=== PATIENT | male | born 1955 | race Caucasian/White ===

== ENCOUNTER → 2020-01-07 10:16 | Outpatient (BNVA) | payer OTHER, SELFPAY | PROVIDERS: PCP Internal Medicine; Referring Provider Internal Medicine; Visit Provider Internal Medicine | DX: G47.33 Obstructive sleep apnea (adult) (pediatric) (principal) | CPT/HCPCS: 99213 ==

== ENCOUNTER 2020-01-10 15:03 | Outpatient (REF) | payer OTHER, SELFPAY ==
[2020-01-10 17:35] LABS: Prostate Specific Antigen Scr 1.25 ng/mL (<0.05-4.0)
== END 2020-01-10 15:04 | disposition home or self-care (01) ==
LOC: HO.HMGCLDS 15:03
PROVIDERS: PCP Internal Medicine; Visit Provider Internal Medicine
DX: N40.1 Benign prostatic hyperplasia with lower urinary tract symptoms (principal); R35.1 Nocturia
CPT/HCPCS: 84153

== ENCOUNTER → 2020-01-23 08:42 | Outpatient (BNVA) | payer OTHER, SELFPAY | PROVIDERS: PCP Internal Medicine; Referring Provider Internal Medicine; Visit Provider Dietitian, Registered | DX: Z76.89 Persons encountering health services in other specified circumstances (principal) ==

== ENCOUNTER 2020-02-14 11:58 | Outpatient (REF) | payer OTHER, SELFPAY | END 2020-02-14 11:59 | disposition home or self-care (01) | LOC: HO.HAP 11:58 | PROVIDERS: PCP Internal Medicine; Visit Provider Internal Medicine | DX: Z46.1 Encounter for fitting and adjustment of hearing aid (principal) | CPT/HCPCS: V5266 ==

== ENCOUNTER 2020-02-27 12:26 | Outpatient (REF) | payer OTHER, SELFPAY ==
[2020-02-27 14:09] LABS: Estimated Average Glucose 140 mg/dL; Hemoglobin A1c % 6.5 %
== END 2020-02-27 12:27 | disposition home or self-care (01) ==
LOC: HO.10HDL 12:26
PROVIDERS: Visit Provider Nurse Practitioner Gerontology
DX: E11.42 Type 2 diabetes mellitus with diabetic polyneuropathy (principal); N40.1 Benign prostatic hyperplasia with lower urinary tract symptoms; R35.1 Nocturia; R33.9 Retention of urine, unspecified; R39.12 Poor urinary stream; N52.01 Erectile dysfunction due to arterial insufficiency
CPT/HCPCS: 81002; 83036; 99202

== ENCOUNTER 2020-04-21 10:38 | Outpatient (REF) | payer OTHER, SELFPAY ==
[2020-04-21 14:41] LABS: Estimated Average Glucose 134 mg/dL; Hemoglobin A1c % 6.3 %
[2020-04-21 14:45] LABS: Alanine Aminotransferase 26 U/L (0-40); Albumin Level 4.7 g/dL (3.5-5.0); Alkaline Phosphatase 127 U/L (39-117); Anion Gap 16 (12-20); Aspartate Amino Transferase 25 U/L (5-37); Bilirubin Total 0.8 mg/dL (0.0-1.0); Blood Urea Nitrogen 18 mg/dL (9-16); Calcium 9.8 mg/dL (8.4-10.2); Carbon Dioxide 25 mmol/L (22-29); Chloride 107 mmol/L (96-108); Cholesterol 127 mg/dL; Estimated Glomerular Filt Rate > 60; Glucose Fasting 134 mg/dL (60-99); HDL Cholesterol 32 mg/dL; LDL Cholesterol Calculated 73 mg/dl; Sodium 143 mmol/L (135-145); Total Protein 6.6 g/dL (6.5-8.0); Triglycerides 113 mg/dL
[2020-04-21 15:21] LABS: Microalbum/Creatinine Ratio Ur 5.9 ug/mg cr
== END 2020-04-21 10:39 | disposition home or self-care (01) ==
LOC: HO.HMGCLDS 10:38
PROVIDERS: PCP Internal Medicine; Visit Provider Internal Medicine
DX: R33.9 Retention of urine, unspecified (principal); R39.12 Poor urinary stream; N40.1 Benign prostatic hyperplasia with lower urinary tract symptoms; E11.9 Type 2 diabetes mellitus without complications; Z12.5 Encounter for screening for malignant neoplasm of prostate
CPT/HCPCS: 36415; 80053; 80061; 82043; 83036

== ENCOUNTER → 2020-04-24 10:09 | Outpatient (BNVA) | payer OTHER, SELFPAY | PROVIDERS: PCP Internal Medicine; Visit Provider Dietitian, Registered ==

== ENCOUNTER 2020-04-28 08:50 | Outpatient (REF) | payer OTHER, SELFPAY ==
--- NOTE | 2020-04-28 | US_ITS ---
EXAMINATION: US PELVIS LIMITED (BLADDER) CLINICAL INFORMATION: Urinary retention with incomplete bladder emptying. COMPARISON: CT abdomen pelvis 06/27/2018. Ultrasound abdomen 06/15/2018 and 07/06/2017. TECHNIQUE: Real-time imaging of the bladder. FINDINGS: BLADDER: Well distended and normal. No bladder wall mass, nodule or echogenic bladder contents are seen. Bilateral ureteral jets are demonstrated. Prevoid bladder volume is 381 mL. Postvoid bladder volume is 30 mL. OTHER: Prostate dimensions are 3.6 x 2.9 x 3.0 cm (volume 16.4 mL). US/US bladder IMPRESSION: Unremarkable examination.
== END 2020-04-28 08:51 | disposition home or self-care (01) ==
LOC: HO.HMGCX 08:50
PROVIDERS: PCP Internal Medicine; Visit Provider Urology
DX: R33.9 Retention of urine, unspecified (principal)
CPT/HCPCS: 76857

== ENCOUNTER → 2020-04-29 12:46 | Outpatient (BNVA) | payer OTHER, SELFPAY | PROVIDERS: PCP Internal Medicine; Visit Provider Orthopaedic Surgery | DX: M77.11 Lateral epicondylitis, right elbow (principal) | CPT/HCPCS: 20551; 99202; J1020 ==

== ENCOUNTER → 2020-05-01 12:54 | Outpatient (BNVA) | payer OTHER, SELFPAY | PROVIDERS: Visit Provider Urology | DX: R33.9 Retention of urine, unspecified (principal); N52.01 Erectile dysfunction due to arterial insufficiency; R39.12 Poor urinary stream | CPT/HCPCS: 52000; 99212 ==

== ENCOUNTER → 2020-06-02 08:44 | Outpatient (BNV) | payer OTHER, SELFPAY | PROVIDERS: PCP Internal Medicine; Visit Provider Internal Medicine | DX: C83.07 Small cell B-cell lymphoma, spleen (principal); D80.1 Nonfamilial hypogammaglobulinemia; M86.8X6 Other osteomyelitis, lower leg | CPT/HCPCS: 99213; 99214; G2211 ==

== ENCOUNTER → 2020-06-22 09:46 | Outpatient (BNVA) | payer OTHER, SELFPAY | PROVIDERS: PCP Internal Medicine; Visit Provider Internal Medicine | DX: I48.19 Other persistent atrial fibrillation (principal); I48.3 Typical atrial flutter; I25.10 Atherosclerotic heart disease of native coronary artery without angina pectoris; I95.1 Orthostatic hypotension; E11.42 Type 2 diabetes mellitus with diabetic polyneuropathy; G47.33 Obstructive sleep apnea (adult) (pediatric) | CPT/HCPCS: 99212 ==

== ENCOUNTER 2020-06-30 08:29 | Outpatient (REF) | payer OTHER, SELFPAY | END 2020-06-30 08:30 | disposition home or self-care (01) | LOC: HO.MDS 08:29 | PROVIDERS: PCP Internal Medicine; Visit Provider Internal Medicine | DX: D80.1 Nonfamilial hypogammaglobulinemia (principal) | CPT/HCPCS: 96365; 96366; 96375; J1572; J2930; Q0163 ==

== ENCOUNTER → 2020-07-02 10:10 | Outpatient (BNVA) | payer OTHER, SELFPAY | PROVIDERS: PCP Internal Medicine; Visit Provider Internal Medicine | DX: G47.33 Obstructive sleep apnea (adult) (pediatric) (principal) | CPT/HCPCS: 99212; Q3014 ==

== ENCOUNTER 2020-07-06 06:09 | Day surgery (SDC) | payer OTHER, SELFPAY ==
[2020-06-30 15:47] VITALS: BMI 30.2
--- NOTE | 2020-07-02 15:25 | HO.ANESPROP2 ---
Documented by User: Yesenia Kulkarni 07/02/20 15:36 HPI - Anesthesia Eval Consult details Narrative: 65yo M for Green Light Laser Ablation Prostate pradaxa for afib Pulmo cleared - no chronic lung ds. EMIL with h/o of noncompliance with CPAP. Pt to start using regularly preop. 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 hx or current) PMFSH Active Problems Active Problems: All Active Problems (Updated 07/02/20 @ 11:03 by Duke Patel MD) Type 2 diabetes mellitus with diabetic polyneuropathy (Acute) Weak urinary stream (Acute) Urinary retention with incomplete bladder emptying (Acute) Erectile dysfunction due to arterial insufficiency (Acute) Lateral epicondylitis, right elbow (Acute) Splenic marginal zone b-cell lymphoma (Chronic) Orthostatic hypotension (Acute) Atherosclerotic cardiovascular disease (Acute) Typical atrial flutter (Acute) Persistent atrial fibrillation (Acute) Essential hypertension (Acute) Hyperlipidemia LDL goal <100 (Acute) Obesity due to excess calories (Acute) BMI 30.0-30.9,adult (Acute) Status post below-knee amputation of left lower extremity (Acute) DM (diabetes mellitus) (Acute) ETOH abuse (Acute) BPH associated with nocturia (Acute) EMIL (obstructive sleep apnea) (Acute) Past Medical History Medical History (Updated 07/02/20 @ 15:26 by Yesenia Kulkarni) Adjustment disorder Atherosclerotic cardiovascular disease BMI 30.0-30.9,adult BPH associated with nocturia CAD (coronary artery disease) Chronic osteomyelitis Depression Diabetic eye exam DM (diabetes mellitus) Essential hypertension ETOH abuse GERD (gastroesophageal reflux disease) Gout Hyperlipidemia LDL goal <100 Hypogammaglobulinemia Long-term current use of intravenous immunoglobulin (IVIG) Lymphoma Obesity due to excess calories Orthostatic hypotension EMIL (obstructive sleep apnea) PAF (paroxysmal atrial fibrillation) Persistent atrial fibrillation Splenic marginal zone b-cell lymphoma Typical atrial flutter Family History Family History Father Diabetes Mother Liver cancer Maternal Grandfather CVD (cardiovascular disease) Brother Myocardial infarction Surgical History Surgical History History of bunionectomy History of cardiac cath History of colonoscopy History of esophagogastroduodenoscopy (EGD) Osteomyelitis Osteomyelitis Status post below-knee amputation of left lower extremity Social History Social History Alcohol intake: never Smoking Status: Never smoker Use of substances other than those prescribed or required for medical reasons: No Advance Directives: No Advance Directives Information Provided: Yes Current occupational status: employed 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 Meds Allergies Allergy/AdvReac Type Severity Reaction Status Date / Time vancomycin [VANCOMYCIN] Allergy Severe ANGIOEDEMA Verified 07/02/20 10:25 Sulfa (Sulfonamide Allergy Intermediate Rash Verified 07/02/20 10:25 Antibiotics) sulfamethoxazole Allergy Rash Verified 07/03/20 11:39 [From Bactrim] trimethoprim [From Bactrim] Allergy Rash Verified 07/03/20 11:39 Home Medications Medication Instructions Recorded Confirmed Last Taken Type allopurinol 100 mg tablet 200 mg PO DAILY 12/21/19 06/22/20 Unknown History blood sugar diagnostic #10 ea 12/21/19 06/22/20 Unknown History diltiazem HCl 180 mg 180 mg PO BID 12/21/19 06/22/20 07/06/20 History capsule,extended release 24 hr, controlled dulaglutide 0.75 mg/0.5 mL 0.75 mg SUBCUT QWEEK 12/21/19 06/22/20 Unknown History subcutaneous pen injector duloxetine 60 mg capsule,delayed 60 mg PO DAILY 12/21/19 06/22/20 07/06/20 History release lancets 28 gauge #100 ea 12/21/19 06/22/20 Unknown History metoprolol tartrate 50 mg tablet 50 mg PO BID 12/21/19 06/22/20 07/06/20 History bupropion HCl 300 mg 24 hr tablet, 300 mg PO DAILY tab 02/27/20 06/22/20 Unknown History extended release dabigatran etexilate 150 mg capsule 150 mg PO BID 02/27/20 06/22/20 07/01/20 History multivitamin 1 tab PO DAILY 02/27/20 06/22/20 Unknown History trazodone 100 mg tablet 100 mg PO BEDTIME PRN tab 07/02/20 Unknown History Exam Exam Date and Time: July 02, 2020 1525 Height,Weight and Vital Signs: Height 6 ft 2 in Weight 106.594 kg Pertinent Lab Results Pertinent Lab Results: Laboratory Tests 06/02/20 06/02/20 09:10 09:10 WBC 10.1 Hgb 14.9 Hct 43.6 Plt Count 313 Sodium 143 Potassium 5.0 Chloride 108 Carbon Dioxide 26 BUN 19 H Creatinine 1.03 Narrative Narrative: Per cardiol: Myocardial perfusion imaging had shown inferior and apical ischemia. However, cardiac catheterization without any significant coronary disease. No obstructive lesions. Echo with contrast 2019 Nml LV systolic function with normal filling pressures. EF 55-60% ECHO 2018 Mildly depressed LV sys function with LVEF 45-50% Severe biatrial enlargement Mild Mitral and Tricuspid regurg Normal RV sys pressure No pericardial effusion Assessment and Plan Assessment Anesthesia Assessment: Chart Reviewed Documented by User: Suzette Silverman 07/06/20 07:19 [facility] Past Medical History Medical History (Updated 07/02/20 @ 15:26 by Yesenia Kulkarni) Adjustment disorder Atherosclerotic cardiovascular disease BMI 30.0-30.9,adult BPH associated with nocturia CAD (coronary artery disease) Chronic osteomyelitis Depression Diabetic eye exam DM (diabetes mellitus) Essential hypertension ETOH abuse GERD (gastroesophageal reflux disease) Gout Hyperlipidemia LDL goal <100 Hypogammaglobulinemia Long-term current use of intravenous immunoglobulin (IVIG) Lymphoma Obesity due to excess calories Orthostatic hypotension EMIL (obstructive sleep apnea) PAF (paroxysmal atrial fibrillation) Persistent atrial fibrillation Splenic marginal zone b-cell lymphoma Typical atrial flutter Family History Family History Father Diabetes Mother Liver cancer Maternal Grandfather CVD (cardiovascular disease) Brother Myocardial infarction Surgical History Surgical History History of bunionectomy History of cardiac cath History of colonoscopy History of esophagogastroduodenoscopy (EGD) Osteomyelitis Osteomyelitis Status post below-knee amputation of left lower extremity Social History Social History Alcohol intake: never Smoking Status: Never smoker Use of substances other than those prescribed or required for medical reasons: No Advance Directives: No Advance Directives Information Provided: Yes Current occupational status: employed 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 Meds Allergies Allergy/AdvReac Type Severity Reaction Status Date / Time vancomycin [VANCOMYCIN] Allergy Severe ANGIOEDEMA Verified 07/02/20 10:25 Sulfa (Sulfonamide Allergy Intermediate Rash Verified 07/02/20 10:25 Antibiotics) sulfamethoxazole Allergy Rash Verified 07/03/20 11:39 [From Bactrim] trimethoprim [From Bactrim] Allergy Rash Verified 07/03/20 11:39 Home Medications Medication Instructions Recorded Confirmed Last Taken Type allopurinol 100 mg tablet 200 mg PO DAILY 12/21/19 06/22/20 Unknown History blood sugar diagnostic #10 ea 12/21/19 06/22/20 Unknown History diltiazem HCl 180 mg 180 mg PO BID 12/21/19 06/22/20 07/06/20 History capsule,extended release 24 hr, controlled dulaglutide 0.75 mg/0.5 mL 0.75 mg SUBCUT QWEEK 12/21/19 06/22/20 Unknown History subcutaneous pen injector duloxetine 60 mg capsule,delayed 60 mg PO DAILY 12/21/19 06/22/20 07/06/20 History release lancets 28 gauge #100 ea 12/21/19 06/22/20 Unknown History metoprolol tartrate 50 mg tablet 50 mg PO BID 12/21/19 06/22/20 07/06/20 History bupropion HCl 300 mg 24 hr tablet, 300 mg PO DAILY tab 02/27/20 06/22/20 Unknown History extended release dabigatran etexilate 150 mg capsule 150 mg PO BID 02/27/20 06/22/20 07/01/20 History multivitamin 1 tab PO DAILY 02/27/20 06/22/20 Unknown History trazodone 100 mg tablet 100 mg PO BEDTIME PRN tab 07/02/20 Unknown History Exam Airway Mallampati Class: II TM Dist: >3cm Neck ROM: Full Heart: irr Lungs: CtA Bl Assessment and Plan Assessment Anesthesia Assessment: Anesthesia Plan Discussed and Chart Reviewed Final Anesthetic Review NPO: Yes (Sip water with meds) ASA Class: III Final Preanesthetic Review: No Changes in Pt Med Stat and Consent Obtained/Reviewed Patient Risk: Intermediate Procedure Risk: Intermediate Anesthetic Plan Anesthetic Plan: GA Disposition: Standard PACU
[2020-07-06] VITALS (7 sets, daily range): BP systolic 119–134; BP diastolic 64–88; PULSE 45–57; RESP 16–18; TEMP 36.1–36.6; O2SAT 92–98
--- NOTE | 2020-07-06 | ECG_ITS ---
Test Reason : CAD, aflutter, DM, EMIL Blood Pressure : / mmHG Vent. Rate : 048 BPM Atrial Rate : 047 BPM P-R Int : 000 ms QRS Dur : 088 ms QT Int : 436 ms P-R-T Axes : 000 -32 -06 degrees QTc Int : 389 ms Atrial fibrillation with slow ventricular response Left axis deviation Septal infarct , age undetermined Abnormal ECG When compared to the previous EKG of 2019, rate is slower Referred By: Yesenia Kulkarni Electronically Signed By:SLOANE POSADA
[2020-07-06] MEDS: levoFLOXacin 500 MG TABLET PO (06:46)
[2020-07-06 07:00] LABS: Glucose, Whole Blood 143 mg/dL (60-115)
[2020-07-06] MEDS: Lactated Ringers 1,000 ML 50 ML IV (07:30)
--- NOTE | 2020-07-06 07:40 | P.HPSUR_ITS ---
Pre-Procedural Eval Section B Chief Complaint: retention of urine Details of Present Illness: BPH Allergies: Allergies Allergy/AdvReac Type Severity Reaction Status Date / Time vancomycin [VANCOMYCIN] Allergy Severe ANGIOEDEMA Verified 07/02/20 10:25 Sulfa (Sulfonamide Allergy Intermediate Rash Verified 07/02/20 10:25 Antibiotics) sulfamethoxazole Allergy Rash Verified 07/03/20 11:39 [From Bactrim] trimethoprim [From Bactrim] Allergy Rash Verified 07/03/20 11:39 Review of Systems Sugical H&P ROS: Negative: Constitution, Cardiovascular, Respiratory, Neurol ogical, Psychiatric, Hem-Onc, Allergic/Immunologic, Gastrointestinal, Genitourinary, Musculoskeletal, Integumentary, Endocrine and Eyes/Ears/Nose/Throat Exam Surgical H&P Exam: Normal: HEENT, Normal: Heart, Normal: Lungs, Normal: Extremities, Normal: Abdomen, Normal: Skin and Normal: Neurological Plan Diagnosis/Plan: Unchanged (Laser enucleation of prostate) I have reviewed the history and physical and performed a pertinent physical examination on my patient. No changes have occurred unless specified.
--- NOTE | 2020-07-06 08:34 | PM.OP ---
Brief Operative Note Date of Service: 07/06/20 Pre-op diagnosis: BPH Post-op diagnosis: same Procedure: Laser enucleation of the prostate Surgeon: Cordell Montero MD Anesthesia: GLMA Estimated blood loss (mL): 0 Pathology: none sent Condition: stable Disposition: same day
--- NOTE | 2020-07-06 08:35 | P.OP_ITS ---
Operative Note Operative Note Date of Service: 07/06/20 Narrative: PreOperative Diagnosis: Bladder outlet obstruction Post Operative Diagnosis: Bladder outlet obstruction Procedure: GreenLight laser enucleation of the prostate Surgeon: Dr Cordell Montero Anesthesia: General Indications for procedure: History of bladder outlet obstruction. Treated with alpha-lashell and other medications. Still with symptoms. On cystoscopy in office has tight bladder neck. Recommendation for prostate procedure with laser enucleation of prostate. It has been discussed. Focus was placed on development of retrograde examination which is a normal part of this procedure. Procedure: After informed consent was verified the patient was brought to the operating room and placed in a supine position. Anesthesia was administered per protocol. Patient was placed in modified dorsal lithotomy position and prepped and draped in a sterile fashion. Safety pause time-out was confirmed. Antibiotics have been given. Twenty-four Dominican laser cystoscope was inserted per urethra. No abnormalities found the anterior posterior urethra. The bladder was filled on both ureteric orifices were seen in normal position away from our area of interest. Using a GreenLight laser settings of 80 w incisions were made at the 5 and 7 o'clock position. They were taken down and then laterally on each side. They were brought from the bladder neck down to the level of the veru. These defined the lateral aspects of the median lobe area. The median lobe was ablated and en ucleated tissue removed. Once the median lobe area had been cleaned attention was directed to the lateral lobes. We started with the patient's left lateral lobe. Firstly the 05:00 o'clock groove was further developed. This was moved in the lateral position to undermine the tissue on the lateral side. Focus was then placed on the laser at the 1 o'clock position in developing a secondary groove down to the level of bladder fibers. The intervening tissue between these 2 grooves was removed with a combination of enucleation ablation working from the apex toward the bladder neck. A similar procedure was repeated on the patient's right-hand side. When this was completed debris and pieces of prostate removed from the bladder. Both ureteric orifices were reviewed again in shown to be patent in away from any areas of energy damage. The apical area was reviewed in any stray ooze was controlled. A 22 Dominican 30 cc balloon Santos catheter was placed over stylet into the bladder. Clear efflux was obtained. 30 cc was placed in the balloon and gentle traction was placed. A snap was used to hold tension once the patient will be moved and transported. Once transportation its finish this novel be removed. A belladonna and opiate suppository was placed for postprocedure pain management. He tolerated procedure well was extubated in the operating and transferred in a stable condition to the recovery area. Total could joules 88,000 Pathology: Prostate tissue Drains: Santos catheter
== END 2020-07-06 10:26 ==
LOC: HO.SSS 06:10
PROVIDERS: PCP Internal Medicine; Visit Provider Urology
PROC: 0V507ZZ Destruction of Prostate, Via Natural or Artificial Opening (ICD-10-PCS; CPT 52648; principal; 2020-07-06 07:30)
DX: N40.1 Benign prostatic hyperplasia with lower urinary tract symptoms (principal); N32.0 Bladder-neck obstruction; R35.1 Nocturia; I10 Essential (primary) hypertension; E11.9 Type 2 diabetes mellitus without complications; I48.91 Unspecified atrial fibrillation; G47.33 Obstructive sleep apnea (adult) (pediatric); Z79.84 Long term (current) use of oral hypoglycemic drugs; Z79.899 Other long term (current) drug therapy; Z99.89 Dependence on other enabling machines and devices; Z91.19 Patient's noncompliance with other medical treatment and regimen; Z90.81 Acquired absence of spleen; Z89.512 Acquired absence of left leg below knee; Z88.2 Allergy status to sulfonamides; Z88.1 Allergy status to other antibiotic agents
CPT/HCPCS: 52648; 82947; 93005; J2250; J2370; J2405; J3010

== ENCOUNTER → 2020-07-09 08:41 | Outpatient (BNVA) | payer OTHER, SELFPAY | PROVIDERS: PCP Internal Medicine; Visit Provider Urology | DX: R33.9 Retention of urine, unspecified (principal) | CPT/HCPCS: 99212 ==

== ENCOUNTER 2020-07-30 08:12 | Outpatient (REF) | payer OTHER, SELFPAY ==
[2020-07-30 11:42] LABS: Hematocrit 42.3 % (42-52); Hemoglobin 14.2 g/dl (14.0-18.0); Mean Corpuscular HGB Conc 33.6 g/dl (31.0-36.0); Mean Corpuscular Hemoglobin 30.9 pg (27.0-33.0); Mean Platelet Volume 10.3 fL (9.4-12.4); NRBC Pct Auto 0.2 /100WBC (0.0-0.2); Platelet Count 350 X10*3/uL (160-400); Red Cell Distribution Width 14.4 % (11.0-16.0); White Blood Count 12.4 X10*3/uL (4.8-10.8)
[2020-07-30 11:50] LABS: Estimated Average Glucose 148 mg/dL; Hemoglobin A1c % 6.8 %
[2020-07-30 11:53] LABS: Alanine Aminotransferase 23 U/L (0-40); Albumin Level 4.2 g/dL (3.5-5.0); Alkaline Phosphatase 173 U/L (39-117); Anion Gap 15 (12-20); Aspartate Amino Transferase 21 U/L (5-37); Bilirubin Total 0.5 mg/dL (0.0-1.0); Blood Urea Nitrogen 25 mg/dL (9-16); Calcium 9.3 mg/dL (8.4-10.2); Carbon Dioxide 26 mmol/L (22-29); Chloride 103 mmol/L (96-108); Cholesterol 142 mg/dL; Estimated Glomerular Filt Rate > 60; Glucose Fasting 167 mg/dL (60-99); HDL Cholesterol 32 mg/dL; LDL Cholesterol Calculated 62 mg/dl; Potassium 4.5 mmol/L (3.3-5.1); Sodium 139 mmol/L (135-145); Total Protein 6.3 g/dL (6.5-8.0); Triglycerides 244 mg/dL
[2020-07-30 12:29] LABS: Creatinine Urine 120.95 mg/dL; Microalbum/Creatinine Ratio Ur 319.1 ug/mg cr
== END 2020-07-30 08:13 | disposition home or self-care (01) ==
LOC: HO.HMGCLDS 08:12
PROVIDERS: PCP Internal Medicine; Visit Provider Internal Medicine
DX: E11.42 Type 2 diabetes mellitus with diabetic polyneuropathy (principal); E78.5 Hyperlipidemia, unspecified; I10 Essential (primary) hypertension; R35.1 Nocturia; N40.1 Benign prostatic hyperplasia with lower urinary tract symptoms
CPT/HCPCS: 36415; 80053; 80061; 82043; 83036; 85027

== ENCOUNTER → 2020-08-20 08:30 | Outpatient (BNVA) | payer OTHER, SELFPAY | PROVIDERS: PCP Internal Medicine; Visit Provider Urology | DX: N40.1 Benign prostatic hyperplasia with lower urinary tract symptoms (principal); R39.12 Poor urinary stream; R33.9 Retention of urine, unspecified; R35.1 Nocturia | CPT/HCPCS: 51798; 99212 ==

== ENCOUNTER 2020-10-06 08:13 | Outpatient (REF) | payer OTHER, SELFPAY | END 2020-10-06 08:14 | disposition home or self-care (01) | LOC: HO.MDS 08:13 | PROVIDERS: PCP Internal Medicine; Visit Provider Internal Medicine | DX: D80.1 Nonfamilial hypogammaglobulinemia (principal) | CPT/HCPCS: 96365; 96366; 96375; J1572; J2930; Q0163 ==

== ENCOUNTER → 2020-10-07 13:25 | Outpatient (BNVA) | payer OTHER, SELFPAY | PROVIDERS: Visit Provider Nurse Practitioner Gerontology ==

== ENCOUNTER → 2020-10-13 08:33 | Outpatient (BNVA) | payer OTHER, SELFPAY | PROVIDERS: PCP Internal Medicine; Visit Provider Nurse Practitioner Gerontology | DX: E11.42 Type 2 diabetes mellitus with diabetic polyneuropathy (principal); E78.5 Hyperlipidemia, unspecified; E66.09 Other obesity due to excess calories; I10 Essential (primary) hypertension; Z68.30 Body mass index [BMI] 30.0-30.9, adult | CPT/HCPCS: Q3014 ==

== ENCOUNTER → 2020-10-22 09:03 | Outpatient (BNVA) | payer OTHER, SELFPAY | PROVIDERS: PCP Internal Medicine; Visit Provider Dietitian, Registered | DX: E11.42 Type 2 diabetes mellitus with diabetic polyneuropathy (principal) | CPT/HCPCS: 97803 ==

== ENCOUNTER 2020-10-26 08:35 | Outpatient (REF) | payer OTHER, SELFPAY ==
[2020-10-26 12:04] LABS: Prostate Specific Antigen 1.58 ng/mL (<0.05-4.0)
[2020-10-28 20:10] LABS: TS Negative Control Passed; TS Panel A 0; TS Panel B 2; TS Positive Control Passed; TSpotTB Negative (SeeBelow)
== END 2020-10-26 08:36 | disposition home or self-care (01) ==
LOC: HO.HMGCLDS 08:35
PROVIDERS: Absent Provider Urology; PCP Internal Medicine; Visit Provider Nurse Practitioner Family
DX: Z02.1 Encounter for pre-employment examination (principal); Z12.5 Encounter for screening for malignant neoplasm of prostate; N13.8 Other obstructive and reflux uropathy; N40.1 Benign prostatic hyperplasia with lower urinary tract symptoms
CPT/HCPCS: 36415; 84153; 86481

== ENCOUNTER → 2020-11-19 09:11 | Outpatient (BNVA) | payer OTHER, SELFPAY | PROVIDERS: PCP Internal Medicine; Visit Provider Urology | CPT/HCPCS: Q3014 ==

== ENCOUNTER 2020-12-29 08:24 | Outpatient (REF) | payer OTHER, SELFPAY | END 2020-12-29 08:25 | disposition home or self-care (01) | LOC: HO.MDS 08:24 | PROVIDERS: PCP Internal Medicine; Visit Provider Internal Medicine | DX: D80.1 Nonfamilial hypogammaglobulinemia (principal) | CPT/HCPCS: 96365; 96366; 96375; J1569; J2930; Q0163 ==

== ENCOUNTER 2021-02-03 09:12 | Outpatient (REF) | payer OTHER, SELFPAY ==
[2021-02-03 11:31] LABS: Hematocrit 47.4 % (42.0-52.0); Hemoglobin 16.2 g/dl (14.0-18.0); Mean Corpuscular HGB Conc 34.2 g/dl (31.0-36.0); Mean Corpuscular Hemoglobin 31.5 pg (27.0-33.0); Mean Corpuscular Volume 92.2 fL (80.0-98.0); Mean Platelet Volume 10.7 fL (9.4-12.4); Platelet Count 353 X10*3/uL (160-400); Red Blood Count 5.14 X10*6/uL (4.60-5.80); Red Cell Distribution Width 13.3 % (11.0-16.0); White Blood Count 6.6 X10*3/uL (4.8-10.8)
[2021-02-03 11:49] LABS: Alanine Aminotransferase 29 U/L (0-40); Albumin Level 4.6 g/dL (3.5-5.0); Alkaline Phosphatase 130 U/L (39-117); Anion Gap 13 (12-20); Aspartate Amino Transferase 28 U/L (5-37); Bilirubin Total 0.9 mg/dL (0.0-1.0); Blood Urea Nitrogen 20 mg/dL (9-16); Calcium 9.7 mg/dL (8.4-10.2); Carbon Dioxide 28 mmol/L (22-29); Chloride 105 mmol/L (96-108); Cholesterol 116 mg/dL; Creatinine Urine 102.75 mg/dL; Estimated Glomerular Filt Rate > 60; Glucose Fasting 130 mg/dL (60-99); HDL Cholesterol 28 mg/dL; LDL Cholesterol Calculated 72 mg/dl; Potassium 4.7 mmol/L (3.3-5.1); Sodium 141 mmol/L (135-145); Total Protein 6.6 g/dL (6.5-8.0); Triglycerides 83 mg/dL
[2021-02-03 11:50] LABS: Estimated Average Glucose 146 mg/dL; Hemoglobin A1c % 6.7 %
[2021-02-03 11:52] LABS: Microalbum/Creatinine Ratio Ur 9.7 ug/mg cr
== END 2021-02-03 09:13 | disposition home or self-care (01) ==
LOC: HO.HMGCLDS 09:12
PROVIDERS: PCP Internal Medicine; Visit Provider Internal Medicine
DX: E11.42 Type 2 diabetes mellitus with diabetic polyneuropathy (principal); E78.5 Hyperlipidemia, unspecified; I10 Essential (primary) hypertension; I48.19 Other persistent atrial fibrillation
CPT/HCPCS: 36415; 80053; 80061; 82043; 83036; 85027

== ENCOUNTER → 2021-02-10 14:57 | Outpatient (BNVA) | payer OTHER, SELFPAY | PROVIDERS: PCP Internal Medicine; Referring Provider Internal Medicine; Visit Provider Internal Medicine | DX: I48.19 Other persistent atrial fibrillation (principal); I48.3 Typical atrial flutter; I25.10 Atherosclerotic heart disease of native coronary artery without angina pectoris; E11.42 Type 2 diabetes mellitus with diabetic polyneuropathy; I95.1 Orthostatic hypotension; G47.33 Obstructive sleep apnea (adult) (pediatric) | CPT/HCPCS: 99212 ==

== ENCOUNTER 2021-03-30 08:57 | Outpatient (REF) | payer OTHER, SELFPAY | END 2021-03-30 08:58 | disposition home or self-care (01) | LOC: HO.MDS 08:57 | PROVIDERS: PCP Internal Medicine; Visit Provider Internal Medicine | DX: D80.1 Nonfamilial hypogammaglobulinemia (principal) | CPT/HCPCS: 96365; 96366; 96375; J1569; J2930; Q0163 ==

== ENCOUNTER → 2021-04-05 11:28 | Outpatient (BNVA) | payer OTHER, SELFPAY | PROVIDERS: PCP Internal Medicine; Visit Provider Dietitian, Registered | DX: E11.42 Type 2 diabetes mellitus with diabetic polyneuropathy (principal) | CPT/HCPCS: 97803 ==

== ENCOUNTER → 2021-07-06 13:29 | Outpatient (BNVA) | payer OTHER, SELFPAY | PROVIDERS: PCP Internal Medicine; Visit Provider Urology | DX: N40.1 Benign prostatic hyperplasia with lower urinary tract symptoms (principal); R35.1 Nocturia | CPT/HCPCS: 51798; 99212 ==

== ENCOUNTER 2021-07-22 08:19 | Outpatient (REF) | payer MEDICARE, SELFPAY | END 2021-07-22 08:20 | disposition home or self-care (01) | LOC: HO.MDS 08:19 | PROVIDERS: Visit Provider Internal Medicine | DX: D80.1 Nonfamilial hypogammaglobulinemia (principal) | CPT/HCPCS: 96365; 96366; 96375; J1569; Q0163 ==

== ENCOUNTER → 2021-07-30 08:07 | Outpatient (REF) | payer OTHER, SELFPAY ==
--- NOTE | 2021-07-30 08:16 | CA_ITS ---
Transthoracic Echocardiogram Patient (Last, First, Middle): Ashley Francis, Gender: Male Date of : 1955 Age: 66 Procedure Date: 07/30/2021 Procedure Type: Transthoracic Echocardiogram Location: OP Height: 187.96 cm Weight: 102.51 kg BSA: 2.29 m2 Heart Rate: bpm BP: 108 / 61 mmHg Painter Hand: ROCCO Referring MD: Niko Godoy MD [employer] Supervisor: Jose Antonio Cabezas MD Symptoms: I48.19 - Other persistent atrial fibrillation Study Quality: Adequate ECG Rhythm: Atrial Fibrillation Conclusions: - 1. Normal LV systolic function with LVEF of 60 65% 2. Mild biatrial enlargement 3. Normal cardiac valvular Doppler 4. Normal RV systolic pressure 5. No pericardial effusion Findings Procedure Information Contrast agent, definity, is being given per protocol without apparent complications. Left Ventricle Normal left ventricular size, thickness, and systolic function. The visually estimated ejection fraction is between 60-65%. Diastolic function is indeterminate on the basis of available data. Right Ventricle Normal right ventricular cavity size and systolic function. Atria Mild biatrial enlargement. Interatrial shunt cannot be excluded. Aortic Valve The aortic valve structure and function is likely normal. There is no aortic valve stenosis. There is no aortic valve regurgitation. Mitral Valve There is mild anterior and posterior mitral leaflet thickening. There is trace mitral valve regurgitation. There is no mitral valve stenosis. Pulmonic Valve The pulmonic valve was not well visualized. Tricuspid Valve Likely normal tricuspid valve structure and function. There is trace tricuspid valve regurgitation. The right ventricular systolic pressure is normal. The right ventricular systolic pressure is 24 mmHg. Normal right atrial pressure. There is no evidence of pulmonary hypertension. Great Vessels All visible segments of the aorta are normal in size. The pulmonary artery was not well visualized. Venous The inferior vena cava is normal in size and collapses greater than 50% with inspiration. Pericardium/Pleural There is no evidence of pericardial effusion. Prior Study Comparison No significant change compared to prior study. Measurements 2D Linear Measurements IVSd: 0.94 0.6-0.9/0.6-1.0 cm LVIDd: 5.12 3.9-5.3/4.2-5.9 cm LVIDd Index: 2.24 2.4-3.2/2.2-3.1 cm/m2 LVIDs: 3.27 2.0-3.6 cm LVPWd: 0.70 0.7-1.1 cm LA Diam: 5.10 2.7-3.8/3.0-4.0 cm LAIDs Index: 2.23 1.5-2.3 cm/m2 LV Mass: 182.26 67-162/88-224 g LV Mass Index: 79.59 43-95/49-115 g/m2 LVOT Diam: 2.30 3.0+(-)1.3 cm 2D Systolic Function EF 4C: 69.70 >55% EF 2C: 58.00 >55% EF BiP: 65.20 >55% Mitral Valve MV Pk E: 0.71 Aortic Valve AoV Pk Nima: 1.34 AoV Mn Nima: 0.98 AoV VTI: 0.24 AoV Pk Grad: 7.00 Aov Mn Grad: 4.00 SAMEERA Cont.VTI: 2.61 LVOT LVOT Pk Nima: 0.92 LVOT Mn Nima: 0.63 LVOT VTI: 0.15 LVOT Pk Grad: 3.00 LVOT Mn Grad: 2.00 LVOT Diam: 2.30 LVOT Area: 4.15 Diastolic Function MV Pk E: 0.71 Right Ventricle TAPSE (mm): 20.90 TVS' Nima: 13.20 Tricuspid Valve TR Pk Nima: 2.29 TR Pk Grad: 21.00 RA Press: 3.00 RVSP: 24.00 Great Vessels Aorta Sinus of Valsalva: 3.21 2.0-3.[address] Ridge: 3.59 1.7-3.4 cm Ao Asc: 3.70 2.1-3.4 cm Pulmonary Valve PV Pk Nima: 0.76 Peak PV Grad: 2.00 Updated in Other Vendor System with Status of Final Jose Antonio Cabezas MD electronically signed on 07/30/2021 3:54:59 PM with status of Final
== END ==
LOC: HO.CARD 08:07
PROVIDERS: Visit Provider Internal Medicine
DX: I48.19 Other persistent atrial fibrillation (principal)
CPT/HCPCS: 93306; Q9957

== ENCOUNTER 2021-08-05 08:19 | Outpatient (REF) | payer OTHER, SELFPAY ==
[2021-08-05 11:54] LABS: Creatinine Urine 155.67 mg/dL; Microalbum/Creatinine Ratio Ur 7.7 ug/mg cr
[2021-08-05 11:56] LABS: Alanine Aminotransferase 28 U/L (0-40); Albumin Level 4.6 g/dL (3.5-5.0); Alkaline Phosphatase 142 U/L (39-117); Anion Gap 17 (12-20); Aspartate Amino Transferase 29 U/L (5-37); Bilirubin Total 0.8 mg/dL (0.0-1.0); Blood Urea Nitrogen 26 mg/dL (9-16); Calcium 10.1 mg/dL (8.4-10.2); Carbon Dioxide 20 mmol/L (22-29); Chloride 107 mmol/L (96-108); Cholesterol 143 mg/dL; Estimated Glomerular Filt Rate > 60; Glucose Fasting 158 mg/dL (60-99); HDL Cholesterol 29 mg/dL; LDL Cholesterol Calculated 88 mg/dl; Potassium 5.1 mmol/L (3.3-5.1); Sodium 139 mmol/L (135-145); Total Protein 7.1 g/dL (6.5-8.0); Triglycerides 130 mg/dL
[2021-08-05 12:19] LABS: Estimated Average Glucose 160 mg/dL; Hemoglobin A1c % 7.2 %
[2021-08-05 13:07] LABS: Digoxin 0.7 ng/mL (0.8-2.0)
== END 2021-08-05 08:20 | disposition home or self-care (01) ==
LOC: HO.HMGCLDS 08:19
PROVIDERS: Absent Provider Internal Medicine; PCP Internal Medicine; Visit Provider Internal Medicine
DX: E11.42 Type 2 diabetes mellitus with diabetic polyneuropathy (principal); E78.5 Hyperlipidemia, unspecified; I10 Essential (primary) hypertension; I48.19 Other persistent atrial fibrillation; Z79.899 Other long term (current) drug therapy
CPT/HCPCS: 36415; 80053; 80061; 80162; 82043; 83036

== ENCOUNTER 2021-08-18 07:49 | Outpatient (REF) | payer OTHER, SELFPAY | END 2021-08-18 07:50 | disposition home or self-care (01) | LOC: HO.MDS 07:49 | PROVIDERS: Visit Provider Internal Medicine | DX: D80.1 Nonfamilial hypogammaglobulinemia (principal) | CPT/HCPCS: 93005; 96365; 96366; 96375; 99212; J1569; Q0163 ==

== ENCOUNTER 2021-09-14 07:43 | Outpatient (REF) | payer OTHER, SELFPAY | END 2021-09-14 07:44 | disposition home or self-care (01) | LOC: HO.MDS 07:43 | PROVIDERS: Visit Provider Internal Medicine | DX: D80.1 Nonfamilial hypogammaglobulinemia (principal) | CPT/HCPCS: 96365; 96366; 96375; J1569; Q0163 ==

== ENCOUNTER 2021-10-12 07:45 | Outpatient (REF) | payer OTHER, SELFPAY | END 2021-10-12 07:46 | disposition home or self-care (01) | LOC: HO.MDS 07:45 | PROVIDERS: Visit Provider Internal Medicine | DX: D80.1 Nonfamilial hypogammaglobulinemia (principal) | CPT/HCPCS: 96365; 96366; J1569; Q0163 ==

== ENCOUNTER 2021-11-23 07:34 | Outpatient (REF) | payer OTHER, SELFPAY | END 2021-11-23 07:35 | disposition home or self-care (01) | LOC: HO.MDS 07:34 | PROVIDERS: Visit Provider Internal Medicine | DX: D80.1 Nonfamilial hypogammaglobulinemia (principal) | CPT/HCPCS: 96365; 96366; 96376; J1569; J2930; Q0163 ==

== ENCOUNTER 2021-12-21 07:09 | Outpatient (REF) | payer OTHER, SELFPAY | END 2021-12-21 07:10 | disposition home or self-care (01) | LOC: HO.MDS 07:09 | PROVIDERS: Visit Provider Internal Medicine | DX: D80.1 Nonfamilial hypogammaglobulinemia (principal) | CPT/HCPCS: 96365; 96366; 96375; J1569; Q0163 ==

== ENCOUNTER → 2022-01-20 15:27 | Outpatient (BNVA) | payer OTHER, SELFPAY | PROVIDERS: PCP Internal Medicine; Visit Provider Urology | DX: E11.69 Type 2 diabetes mellitus with other specified complication (principal); N52.1 Erectile dysfunction due to diseases classified elsewhere; R33.9 Retention of urine, unspecified; R39.12 Poor urinary stream | CPT/HCPCS: Q3014 ==

== ENCOUNTER 2022-02-15 07:44 | Outpatient (REF) | payer OTHER, SELFPAY ==
[2022-02-15 12:02] LABS: Hemoglobin 16.2 g/dl (14.0-18.0); Mean Corpuscular HGB Conc 33.8 g/dl (31.0-36.0); Mean Platelet Volume 10.6 fL (9.4-12.4); Platelet Count 306 X10*3/uL (160-400); Red Blood Count 5.22 X10*6/uL (4.60-5.80); Red Cell Distribution Width 13.6 % (11.0-16.0)
[2022-02-15 12:19] LABS: Estimated Average Glucose 143 mg/dL; Hemoglobin A1c % 6.6 %
[2022-02-15 12:26] LABS: Alanine Aminotransferase 27 U/L (0-40); Albumin Level 4.7 g/dL (3.5-5.0); Alkaline Phosphatase 188 U/L (39-117); Anion Gap 16 (12-20); Aspartate Amino Transferase 23 U/L (5-37); Bilirubin Total 0.5 mg/dL (0.0-1.0); Blood Urea Nitrogen 33 mg/dL (9-16); Carbon Dioxide 25 mmol/L (22-29); Chloride 105 mmol/L (96-108); Cholesterol 150 mg/dL; Estimated Glomerular Filt Rate > 60; Glucose Fasting 147 mg/dL (60-99); HDL Cholesterol 36 mg/dL; LDL Cholesterol Calculated 89 mg/dl; Potassium 5.5 mmol/L (3.3-5.1); Sodium 140 mmol/L (135-145); Total Protein 6.8 g/dL (6.5-8.0); Triglycerides 126 mg/dL
== END 2022-02-15 07:45 | disposition home or self-care (01) ==
LOC: HO.HMGCLDS 07:44
PROVIDERS: PCP Internal Medicine; Visit Provider Internal Medicine
DX: E11.9 Type 2 diabetes mellitus without complications (principal); E78.5 Hyperlipidemia, unspecified; I10 Essential (primary) hypertension; I48.19 Other persistent atrial fibrillation
CPT/HCPCS: 36415; 80053; 80061; 83036; 85027

== ENCOUNTER 2022-03-11 08:31 | Outpatient (REF) | payer OTHER, SELFPAY ==
[2022-03-11 10:53] LABS: Anion Gap 15 (12-20); Blood Urea Nitrogen 20 mg/dL (9-16); Calcium 9.8 mg/dL (8.4-10.2); Carbon Dioxide 25 mmol/L (22-29); Chloride 107 mmol/L (96-108); Estimated Glomerular Filt Rate > 60; Glucose Random 134 mg/dL (60-115); Potassium 4.7 mmol/L (3.3-5.1); Sodium 142 mmol/L (135-145)
== END 2022-03-11 08:32 | disposition home or self-care (01) ==
LOC: HO.LAB 08:31
PROVIDERS: PCP Internal Medicine; Visit Provider Internal Medicine
DX: E87.5 Hyperkalemia (principal)
CPT/HCPCS: 36415; 80048

== ENCOUNTER 2022-05-05 07:31 | Outpatient (REF) | payer OTHER, SELFPAY | END 2022-05-05 07:32 | disposition home or self-care (01) | LOC: HO.MDS 07:31 | PROVIDERS: Visit Provider Internal Medicine | DX: D80.1 Nonfamilial hypogammaglobulinemia (principal) | CPT/HCPCS: 96365; 96366; 96375; J1569 ==

== ENCOUNTER 2022-05-10 20:09 | Emergency (ER) | payer OTHER, SELFPAY ==
[2022-05-10 20:14] VITALS: PULSE 85; O2SAT 98
[2022-05-10 20:39] VITALS: PULSE 87; RESP 18; TEMP 36.4; O2SAT 96; BMI 27.6
[2022-05-10 20:48] VITALS: BP 138/90
--- NOTE | 2022-05-11 00:24 | PC.NURSE ---
This RN notified that pts was on the phone. very upset that pt left without being seen. yelling on the phone, threatening this RN and threatening a lawsuit. Per security, security notified that pt wanted to leave, trying to get him a ride. Per security, the refused to come pick him up. Per security, the patient was frustrated that his refused to give him a ride, the pt told security that he was going to walk home. asking for details of his visit, this RN explaining to that we cannot give out his medical information without his permission. extremely frustrated, continued yelling @ this RN, stating she is. This RN touching base with security regarding phone call to for ride, security had already documented the call. This RN advising pts to call 911 or return pt to the ER for an evaluation.
== END 2022-05-10 23:43 | disposition left against medical advice (07) ==
LOC: HO.ED 23:26
PROVIDERS: Emergency Provider Emergency Medicine
DX: F43.0 Acute stress reaction (principal)
CPT/HCPCS: 99281; 99282

== ENCOUNTER → 2022-06-14 10:36 | Outpatient (REF) | payer OTHER, SELFPAY ==
--- NOTE | 2022-06-14 10:44 | HM_ITS ---
Conclusion: 1. Patient was monitored for total period of 1 day and 23 hours 2. Baseline rhythm is atrial fibrillation with average heart of 60 beats per minute with overall adequate rate control 3. No significant pauses noted 4. Occasional PVCs noted 5. No patient reported symptoms MTDD
== END ==
LOC: HO.CARD 10:36
PROVIDERS: Visit Provider Internal Medicine
DX: I48.91 Unspecified atrial fibrillation (principal); E11.9 Type 2 diabetes mellitus without complications; I10 Essential (primary) hypertension; E78.5 Hyperlipidemia, unspecified
CPT/HCPCS: 93225

== ENCOUNTER 2022-06-14 12:04 | Outpatient (REF) | payer OTHER, SELFPAY ==
[2022-06-14 13:50] LABS: MANUAL DIFF FLAG NO
[2022-06-14 13:56] LABS: Basophils Absolute Auto 0.1 X10*3/uL (0.0-0.2); Basophils Percent Auto 1.3 % (0-2); Eosinophils Absolute Auto 0.3 X10*3/uL (0.0-0.4); Eosinophils Percent Auto 2.9 % (0-4); Hematocrit 46.6 % (42.0-52.0); Hemoglobin 15.7 g/dl (14.0-18.0); Imm Gran Abs Auto 0.04 X10*3/uL (0.00-0.03); Imm Gran Pct Auto 0.4 % (0.0-0.4); Lymphocytes Absolute Auto 1.9 X10*3/uL (1.2-4.9); Lymphocytes Percent Auto 19.6 % (20-40); Mean Corpuscular HGB Conc 33.7 g/dl (31.0-36.0); Mean Corpuscular Hemoglobin 31.9 pg (27.0-33.0); Mean Corpuscular Volume 94.7 fL (80.0-98.0); Monocytes Absolute Auto 0.8 X10*3/uL (0.1-1.2); Neutrophils Absolute Auto 6.7 x10*3/uL (2.0-8.3); Neutrophils Percent Auto 67.8 % (45-73); Platelet Count 339 X10*3/uL (160-400); Red Blood Count 4.92 X10*6/uL (4.60-5.80); Red Cell Distribution Width 14.2 % (11.0-16.0); White Blood Count 9.9 X10*3/uL (4.8-10.8)
[2022-06-14 14:21] LABS: Alanine Aminotransferase 21 U/L (0-40); Albumin Level 4.3 g/dL (3.5-5.0); Alkaline Phosphatase 145 U/L (39-117); Anion Gap 13 (12-20); Aspartate Amino Transferase 22 U/L (5-37); Bilirubin Total 0.5 mg/dL (0.0-1.0); Blood Urea Nitrogen 25 mg/dL (9-16); Calcium 9.4 mg/dL (8.4-10.2); Carbon Dioxide 26 mmol/L (22-29); Chloride 106 mmol/L (96-108); Cholesterol 149 mg/dL; Estimated Glomerular Filt Rate > 60; Glucose Fasting 126 mg/dL (60-99); HDL Cholesterol 44 mg/dL; LDL Cholesterol Calculated 84 mg/dl; Potassium 5.2 mmol/L (3.3-5.1); Sodium 140 mmol/L (135-145); Total Protein 6.4 g/dL (6.5-8.0); Triglycerides 105 mg/dL
[2022-06-14 14:32] LABS: Digoxin 0.4 ng/mL (0.8-2.0)
[2022-06-14 14:36] LABS: Creatinine Urine 100.23 mg/dL; Microalbum/Creatinine Ratio Ur 8.9 ug/mg cr
[2022-06-14 14:38] LABS: Estimated Average Glucose 146 mg/dL; Hemoglobin A1c % 6.7 %
== END 2022-06-14 12:05 | disposition home or self-care (01) ==
LOC: HO.HMGCLDS 12:04
PROVIDERS: PCP Internal Medicine; Visit Provider Internal Medicine
DX: E11.9 Type 2 diabetes mellitus without complications (principal); I48.19 Other persistent atrial fibrillation; I10 Essential (primary) hypertension; E78.5 Hyperlipidemia, unspecified; I48.91 Unspecified atrial fibrillation
CPT/HCPCS: 36415; 80053; 80061; 80162; 82043; 83036; 85025

== ENCOUNTER 2022-06-27 15:04 | Inpatient (IN) | payer OTHER, SELFPAY ==
--- NOTE | ~2022-06-27 | XR_ITS ---
EXAMINATION: XR FOOT, RIGHT CLINICAL INFORMATION: Right foot swelling, wounds. COMPARISON: None available. TECHNIQUE: AP, lateral, and oblique views of the right foot. FINDINGS: Nonacute deformity is seen in the first digit including the metatarsals and phalanges. Moderate first interphalangeal degenerative joint changes are seen. The remainder the digits are intact. There is no acute fracture or dislocation. Mild soft tissue swelling. XR/XR foot RT min 3V IMPRESSION: Nonacute deformity of the first digit with degenerative changes suggestive of old surgery/trauma. If there is concern for osteomyelitis in the first digit, dedicated isolated first digit radiographs with oblique views is recommended.
--- NOTE | ~2022-06-27 | US_ITS ---
EXAMINATION: US VENOUS ULTRASOUND WITH DOPPLER LOWER EXTREMITY, RIGHT CLINICAL INFORMATION: Right lower extremity edema COMPARISON: None available. TECHNIQUE: Ultrasound of the deep veins is performed from the hip to the calf with compression sonography and color and pulse Doppler assessment. Spectral analysis with color-flow imaging is performed. FINDINGS: There is normal venous compression and respiratory variation and augmented flow. The visualized common femoral vein, superficial femoral vein, profunda femoral vein, popliteal vein, and the trifurcation region shows no evidence of deep venous thrombosis. The posterior tibial veins were seen, the peroneal veins were not. There is no significant popliteal fossa cyst. The contralateral left femoral vein appears normal. If the patient's symptoms persist, followup ultrasound in 5 days 7 days might be of value to exclude proximal propagation from a non-visualized calf vein. US/US venous duplex LE RT IMPRESSION: No DVT demonstrated in the right lower extremity.
--- NOTE | ~2022-06-27 | XR_ITS ---
EXAMINATION: XR ANKLE, RIGHT CLINICAL INFORMATION: Right ankle pain and swelling. COMPARISON: None available. TECHNIQUE: AP, lateral, and mortise views of the right ankle. FINDINGS: Mild to moderate soft tissue swelling is seen more pronounced laterally. The ankle joint and mortise are intact. No acute fracture or dislocation. The tarsal bones are normally aligned. Small plantar and retrocalcaneal spurs are noted. Moderate atherosclerosis is noted. XR/XR ankle RT min 3V IMPRESSION: 1. Mild to moderate soft tissue swelling more pronounced laterally without acute underlying osseous abnormality. 2. Small degenerative calcaneal spurs.
--- NOTE | ~2022-06-27 | MR_ITS ---
EXAMINATION: MRI of the right foot without and with contrast. CLINICAL INFORMATION: Ulcer second toe cellulitis. COMPARISON: X-rays of the right foot and ankle 06/27/2022. MRI of the right foot December 2015. TECHNIQUE: MRI of the right foot was performed without and with contrast. Contrast dose 10 mL of Gadavist given intravenously. FINDINGS: Exam is limited because of significant image-degrading motion artifact. There is diffuse signal abnormality throughout the subcutaneous soft tissues circumferentially about the forefoot and midfoot compatible with edema and/or cellulitis. I cannot determine if there is any contrast enhancement given the nondiagnostic quality of the postcontrast images. Probable small ulceration measuring 3 mm along the plantar aspect of the digit at the level of the distal phalanx. Surrounding abnormal signal in the soft tissues compatible edema and/or cellulitis. No abnormal signal of the bone. Great Toe: There appears to be arthrosis of the 1st metatarsophalangeal joint and IP joint as seen on radiographs. No definite abnormal marrow signal. First tarsometatarsal joint unremarkable. Remaining bone and joints unremarkable. Muscles signal throughout the muscles. This likely reflects denervation myositis. Similar findings are noted previously. MR/MR foot RT wo/w con IMPRESSION: This examination is severely limited because of image degrading motion artifact. No definite signs of osteomyelitis with specific attention made to the 2nd toe given the clinical indication. Probable small ulceration along the plantar aspect of the distal 2nd toe at the level of the distal phalanx. Probable surrounding edema and/or cellulitis. No findings to suggest osteomyelitis. 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 This is similar to that noted on the prior MRI in 2016.
[2022-06-27 15:09] VITALS: BP 128/73; PULSE 63; RESP 18; TEMP 36.7; O2SAT 100; BMI 26.9
--- NOTE | 2022-06-27 15:12 | ED.EXTPRO ---
HPI - Extremity Problem General Chief complaint: General Medical <JOSELIN Van - Last Filed: 06/27/22 15:16> Stated complaint: left ankle swollen <JOSELIN Van - Last Filed: 06/27/22 15:16> Time Seen by Provider: 06/27/22 18:23 <JOSELIN Van - Last Filed: 06/27/22 15:16> Source: patient <Jean Alvares MD - Last Filed: 06/27/22 18:51> Mode of arrival: ambulatory <Jean Alvares MD - Last Filed: 06/27/22 18:51> Limitations: no limitations <Jean Alvares MD - Last Filed: 06/27/22 18:51> History of Present Illness HPI Narrative: 67 yo male with history of afib on Pradaxa, DM2 on metformin with neuropathy, 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 No fevers or chills at home. Exam with erythema and warmth to several toes, 2nd digit with ulcer, appears infected. exam c/w cellulitis, no fevers or tachycardia. Patient had similar presentation affecting the left ankle the infection progressed causing severe infection that required amputation. <Jean Alvares MD - Last Filed: 06/27/22 18:51> Related Data Home medications: Home Medications Medication Instructions Recorded Confirmed duloxetine 60 mg capsule,delayed 60 mg PO DAILY 12/21/19 02/24/22 release bupropion HCl 300 mg 24 hr tablet, 300 mg PO DAILY 02/27/20 02/24/22 extended release (Wellbutrin XL) multivitamin 1 tab PO DAILY 02/27/20 02/24/22 allopurinol 100 mg tablet 200 mg PO DAILY 02/08/21 02/24/22 doxycycline monohydrate 100 mg 100 mg PO BID 02/24/22 02/24/22 tablet Previous Rx's Medication Instructions Recorded blood-glucose meter (FreeStyle #1 ea 04/23/20 Lite Meter kit) blood sugar diagnostic (FreeStyle #300 ea 02/11/21 Lite Strips) lancets 28 gauge (FreeStyle #300 ea 02/11/21 Lancets) thiamine HCl (vitamin B1) 100 mg 100 mg PO DAILY #90 tabs 05/18/21 tablet ketoconazole 2 % topical cream 1 appl topical DAILY #60 grams 08/10/21 metronidazole 0.75 % topical cream 1 appl topical BEDTIME #45 grams 08/10/21 (MetroCream) ascorbic acid (vitamin C) 500 mg 500 mg PO DAILY #90 tabs 09/17/21 tablet (Vitamin C) metformin 500 mg tablet 1,000 mg PO BID #180 tabs 01/20/22 miscellaneous medical supply 1 ea miscellaneous .qd #1 ea 01/21/22 Farxiga 5 mg tablet (dapagliflozin) 5 mg PO DAILY #90 tabs 02/24/22 dabigatran etexilate 150 mg 150 mg PO BID 90 days #180 caps 02/24/22 capsule (Pradaxa) diltiazem HCl 180 mg 180 mg PO BID 90 days #180 caps 02/24/22 capsule,extended release 24 hr, controlled metoprolol tartrate 50 mg tablet 50 mg PO BID 90 days #180 tabs 02/24/22 zinc gluconate 50 mg tablet 50 mg PO DAILY #90 tabs 05/03/22 digoxin 125 mcg (0.125 mg) tablet 125 mcg PO DAILY #90 caps 05/09/22 dulaglutide 1.5 mg/0.5 mL 1.5 mg (0.5 mL) subcut QWEEK #6 mL 05/09/22 subcutaneous pen injector (Trulicity) folic acid 1 mg tablet 1 mg PO DAILY #90 tabs 05/09/22 atorvastatin 20 mg tablet 20 mg PO DAILY #90 tabs 05/31/22 <JOSELIN Van - Last Filed: 06/27/22 15:16> Allergies/Adverse reactions: Allergies Allergy/AdvReac Type Severity Reaction Status Date / Time vancomycin [VANCOMYCIN] Allergy Severe ANGIOEDEMA Verified 02/24/22 07:57 Sulfa (Sulfonamide Allergy Intermediate Rash Verified 02/24/22 07:57 Antibiotics) sulfamethoxazole Allergy rash Verified 02/24/22 07:57 [From Bactrim] trimethoprim [From Bactrim] Allergy Rash Verified 02/24/22 07:57 <JOSELIN Van - Last Filed: 06/27/22 15:16> Review of Systems Review of Systems: All other systems are reviewed and are negative Constitutional: Reports as per HPI and Reports no additional constitutional complaints Eyes: Reports as per HPI and Reports no additional eye complaints Reports system reviewed and no additional complaints, except as documented Cardiovascular: Reports as per HPI and Reports no additional cardiovascular complaints Respiratory: Reports as per HPI and Reports no additional respiratory complaints Gastrointestinal: Reports as per HPI and Reports no additional gastrointestinal complaints Genitourinary: Reports no additional female genitourinary complaints Musculoskeletal: Reports no additional musculoskeletal complaints Skin/Breast: Reports system reviewed and no additional complaints, except as docu Psychiatric: Reports no additional psychiatric complaints Endocrine: Reports no additional endocrine complaints Hematologic/Lymphatic: Reports no additional hematologic/lymphatic complaints Allergic/Immunologic: Reports no additional allergic/immunologic complaints Reports system reviewed and no additional complaints, except as documented and Reports Abnormal speech present <Jean Alvares MD - Last Filed: 06/27/22 18:51> [facility] Past Medical History Medical History: Medical History Adjustment disorder Annual physical exam Atherosclerotic cardiovascular disease BMI 30.0-30.9,adult BPH associated with nocturia CAD (coronary artery disease) Chronic osteomyelitis Depression Diabetic eye exam DM (diabetes mellitus) Essential hypertension ETOH abuse GERD (gastroesophageal reflux disease) Gout Hyperlipidemia LDL goal <100 Hypogammaglobulinemia Long-term current use of intravenous immunoglobulin (IVIG) Lymphoma Obesity due to excess calories Orthostatic hypotension EMIL (obstructive sleep apnea) PAF (paroxysmal atrial fibrillation) Persistent atrial fibrillation Rosacea Splenic marginal zone b-cell lymphoma Typical atrial flutter <JOSELIN Van - Last Filed: 06/27/22 15:16> Surgical History: Surgical History History of bunionectomy History of cardiac cath History of colonoscopy History of esophagogastroduodenoscopy (EGD) Osteomyelitis Osteomyelitis Status post below-knee amputation of left lower extremity <JOSELIN Van - Last Filed: 06/27/22 15:16> Family History Family History: Family History Father Diabetes Mother Liver cancer Maternal Grandfather CVD (cardiovascular disease) Brother Myocardial infarction <JOSELIN Van - Last Filed: 06/27/22 15:16> Social History Social History: Social History Household Members: Spouse Housing: House Alcohol intake: never Patient Tobacco Use Status: Never used Tobacco e-Cigarette/Vaping Use: Never Used Advance Directives: No Advance Directives Information Provided: No Current occupational status: employed 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 Cognitive needs: No Hearing needs: No Vision needs: Yes <JOSELIN aVn - Last Filed: 06/27/22 15:16> Physical Exam Vital Signs: Vital Signs: Last Vital Signs Temp 98.1 F 06/27/22 15:09 Pulse 63 06/27/22 15:09 Resp 18 06/27/22 15:09 BP 128/73 06/27/22 15:09 Pulse Ox 100 06/27/22 15:09 O2 Del Method Room Air 06/27/22 15:09 BMI result Body Mass Index 26.9 <JOSELIN Van - Last Filed: 06/27/22 15:16> Vital Signs: Last Vital Signs Temp 98.1 F 06/27/22 15:09 Pulse 63 06/27/22 15:09 Resp 18 06/27/22 15:09 BP 128/73 06/27/22 15:09 Pulse Ox 100 06/27/22 15:09 O2 Del Method Room Air 06/27/22 15:09 BMI result Body Mass Index 26.9 Vital signs have been reviewed as appeared to be correct. Blood pressure normal. Heart rate normal. Respiration rate normal. Temperature normal. Oxygen saturation normal. <Jean Alvares MD - Last Filed: 06/27/22 18:51> Appearance: Alert. Oriented X3. No acute distress. Head: Normal external exam. Normocephalic. Atraumatic. No Nixon signs noted. No raccoon eyes noted Eyes: PERRLA. EOMI. Conjunctiva and sclera normal. Eyelids normal. ENT: TM's Normal. Pharynx normal. Uvula midline. Moist mucous membranes. No trismus noted. No drooling noted. No muffled voice noted. Neck: Normal inspection. Neck supple. FROM. No adenopathy. Thyroid Normal. No meningeal signs. No neck mass noted. CVS: Normal heart rate and rhythm. Heart sound normal. No murmurs noted. Pulses normal throughout. Respiratory: No respiratory distress. Painless inspiration. Breath sounds normal. No wheezes/rales/rhonchi noted. Chest nontender. No accessory muscle usage noted or decreased air movement noted. Abdomen: Soft and nontender. Bowel sounds normal in all 4 quadrants. No distention noted. No organomegaly noted. No visible injury noted. Back: No CVA tenderness. Full range of motion noted. Skin: Skin warm and dry. Normal skin color. Normal skin turgor. No rashes/lesions/lacerations noted. Extremities: S/p left BKA, right ankle with swelling, redness, hotness, tenderness. Second toe with 2 x 2 cm area of ulcerative lesion surrounded by cellulitis. Neuro: Oriented X 3. Cranial nerve exam: II-XII are grossly intact No motor deficit. No sensory deficit. Reflexes normal. 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 No fevers or chills at home. Exam with erythema and warmth to several toes, 2nd digit with ulcer, appears infected. exam c/w cellulitis. VSS in triage, no fevers or tachycardia. Plan: labs, XRs, hold off on LE doppler given he is anticoagulated. <JOSELIN Van - Last Filed: 06/27/22 15:16> 67-year-old male with right ankle cellulitis. Patient is diabetic, diabetic peripheral neuropathy, likely PVD. Patient did not meet criteria for sepsis but because the patient is high risk for rapid worsening of the infection will admit for IV antibiotic. <Jean Alvares MD - Last Filed: 06/27/22 18:51> Medical Decision Making Differential Diagnosis Differential Diagnoses: The differential diagnosis associated with the presentation includes (Sepsis, cellulitis, osteomyelitis, gout, hyperglycemia, electrolyte disturbance, anemia.) <Jean Alvares MD - Last Filed: 06/27/22 18:51> Admission/Observation Consideration of admission/observation: Escalation of care including admission/observation considered <Jean Alvares MD - Last Filed: 06/27/22 18:51> Consult Healthcare Provider Management of the patient was discussed with: Hospitalist <Jean Alvares MD - Last Filed: 06/27/22 18:51> Lab Data MDM Lab Attestation statement: I reviewed the patient's lab results. <Jean Alvares MD - Last Filed: 06/27/22 18:51> Result Diagrams: 06/27/22 16:17 06/27/22 16:16 <JOSELIN Van - Last Filed: 06/27/22 15:16> Labs: Lab Results 06/27/22 06/27/22 06/27/22 Range/Units 16:16 16:17 16:17 WBC 10.6 (4.8-10.8) X10*3/uL RBC 4.83 (4.60-5.80) X10*6/uL Hgb 15.0 (14.0-18.0) g/dl Hct 44.0 (42.0-52.0) % MCV 91.1 (80.0-98.0) fL MCH 31.1 (27.0-33.0) pg MCHC 34.1 (31.0-36.0) g/dl RDW 13.5 (11.0-16.0) % Plt Count 311 (160-400) X10*3/uL MPV 9.6 (9.4-12.4) fL Immature Gran % (Auto) 0.3 (0.0-0.4) % Neut % (Auto) 60.5 (45-73) % Lymph % (Auto) 21.8 (20-40) % Lanier % (Auto) 11.3 H (2-11) % Eos % (Auto) 4.9 H (0-4) % Baso % (Auto) 1.2 (0-2) % Lymph # (Auto) 2.3 (1.2-4.9) X10*3/uL Lanier # (Auto) 1.2 (0.1-1.2) X10*3/uL Eos # (Auto) 0.5 H (0.0-0.4) X10*3/uL Baso # (Auto) 0.1 (0.0-0.2) X10*3/uL Abs Immat Gran (auto) 0.03 (0.00-0.03) X10*3/uL Absolute Neuts (auto) 6.4 (2.0-8.3) x10*3/uL Absolute Nucleated RBC 0.000 (0.0-0.012) X10*3/uL Nucleated RBC % (auto) 0.0 (0.0-0.2) /100WBC Lactic Acid 1.3 (0.5-2.0) mmol/L COVID-19 (PATRICIO) Negative (Negative) COVID-19 Clin Com See Note <JOESLIN Van - Last Filed: 06/27/22 15:16> Lab Results 06/27/22 06/27/22 06/27/22 Range/Units 16:16 16:17 16:17 WBC 10.6 (4.8-10.8) X10*3/uL RBC 4.83 (4.60-5.80) X10*6/uL Hgb 15.0 (14.0-18.0) g/dl Hct 44.0 (42.0-52.0) % MCV 91.1 (80.0-98.0) fL MCH 31.1 (27.0-33.0) pg MCHC 34.1 (31.0-36.0) g/dl RDW 13.5 (11.0-16.0) % Plt Count 311 (160-400) X10*3/uL MPV 9.6 (9.4-12.4) fL Immature Gran % (Auto) 0.3 (0.0-0.4) % Neut % (Auto) 60.5 (45-73) % Lymph % (Auto) 21.8 (20-40) % Lanier % (Auto) 11.3 H (2-11) % Eos % (Auto) 4.9 H (0-4) % Baso % (Auto) 1.2 (0-2) % Lymph # (Auto) 2.3 (1.2-4.9) X10*3/uL Lanier # (Auto) 1.2 (0.1-1.2) X10*3/uL Eos # (Auto) 0.5 H (0.0-0.4) X10*3/uL Baso # (Auto) 0.1 (0.0-0.2) X10*3/uL Abs Immat Gran (auto) 0.03 (0.00-0.03) X10*3/uL Absolute Neuts (auto) 6.4 (2.0-8.3) x10*3/uL Absolute Nucleated RBC 0.000 (0.0-0.012) X10*3/uL Nucleated RBC % (auto) 0.0 (0.0-0.2) /100WBC Lactic Acid 1.3 (0.5-2.0) mmol/L COVID-19 (PATRICIO) Negative (Negative) COVID-19 Clin Com See Note <Jean Alvares MD - Last Filed: 06/27/22 18:51> Independent Interpretation I performed an independent interpretation of an: Plain X-Ray (Left ankle x-ray: No osteomyelitis.) <Jean Alvares MD - Last Filed: 06/27/22 18:51> Radiology Impression Discussion of test interpretation with radiology: I have reviewed the radiologist's reading. <Jean Alvares MD - Last Filed: 06/27/22 18:51> Chronic Conditions Patient?s care impacted by: Diabetes <Jean Alvares MD - Last Filed: 06/27/22 18:51> Discharge Plan Discharge Clinical Impression: Cellulitis of left ankle <JOSELIN Van - Last Filed: 06/27/22 15:16> Patient Disposition: Admitted As Inpatient <JOSELIN aVn - Last Filed: 06/27/22 15:16> Prescriptions: No Action (DME) blood-glucose meter [FreeStyle Lite Meter] Kit See Rx Instructions .ROUTE .MEDSUPPLY Qty: 1 0RF Rx Instructions: As directed 3x/day (DME) FreeStyle Lite Strips Strip See Rx Instructions .Route Qty: 300 3RF Rx Instructions: Test blood sugar TID (DME) lancets [FreeStyle Lancets] 28 gauge misc See Rx Instructions .Route Qty: 300 3RF Rx Instructions: Test blood sugar TID thiamine HCl (vitamin B1) 100 mg tablet 100 mg PO DAILY Qty: 90 3RF ascorbic acid (vitamin C) [Vitamin C] 500 mg tablet 500 mg PO DAILY Qty: 90 3RF metformin 500 mg tablet 1,000 mg PO BID Qty: 180 3RF miscellaneous medical supply Misc 1 ea miscellaneous .qd Qty: 1 1RF Rx Instructions: diabetic shoes with inserts, s/p BKA left foot diltiazem HCl 180 mg capsule,ext.rel 24h degradable 180 mg PO BID 90 Days Qty: 180 3RF dabigatran etexilate [Pradaxa] 150 mg capsule 150 mg PO BID 90 Days Qty: 180 3RF metoprolol tartrate 50 mg tablet 50 mg PO BID 90 Days Qty: 180 3RF zinc gluconate 50 mg tablet 50 mg PO DAILY Qty: 90 3RF Trulicity 1.5 mg/0.5 mL pen injector 1.5 mg subcut QWEEK Qty: 6 2RF folic acid 1 mg tablet 1 mg PO DAILY Qty: 90 3RF digoxin 125 mcg (0.125 mg) tablet 125 mcg PO DAILY Qty: 90 3RF atorvastatin 20 mg tablet 20 mg PO DAILY Qty: 90 3RF allopurinol 100 mg tablet 200 mg PO DAILY doxycycline monohydrate 100 mg tablet 100 mg PO BID Farxiga 5 mg tablet 5 mg PO DAILY Qty: 90 1RF metronidazole [MetroCream] 0.75 % cream 1 appl topical BEDTIME Qty: 45 3RF ketoconazole 2 % cream 1 appl topical DAILY Qty: 60 2RF multivitamin Tablet 1 tab PO DAILY duloxetine 60 mg capsule,delayed release(DR/EC) 60 mg PO DAILY bupropion HCl [Wellbutrin XL] 300 mg tablet extended release 24 hr 300 mg PO DAILY <JOSELIN Van - Last Filed: 06/27/22 15:16>
[2022-06-27 16:24] LABS: MANUAL DIFF FLAG NO
[2022-06-27 16:29] LABS: Basophils Absolute Auto 0.1 X10*3/uL (0.0-0.2); Basophils Percent Auto 1.2 % (0-2); Eosinophils Absolute Auto 0.5 X10*3/uL (0.0-0.4); Eosinophils Percent Auto 4.9 % (0-4); Imm Gran Abs Auto 0.03 X10*3/uL (0.00-0.03); Imm Gran Pct Auto 0.3 % (0.0-0.4); Lymphocytes Absolute Auto 2.3 X10*3/uL (1.2-4.9); Lymphocytes Percent Auto 21.8 % (20-40); Mean Corpuscular HGB Conc 34.1 g/dl (31.0-36.0); Mean Corpuscular Hemoglobin 31.1 pg (27.0-33.0); Mean Corpuscular Volume 91.1 fL (80.0-98.0); Mean Platelet Volume 9.6 fL (9.4-12.4); Monocytes Absolute Auto 1.2 X10*3/uL (0.1-1.2); Monocytes Percent Auto 11.3 % (2-11); Neutrophils Absolute Auto 6.4 x10*3/uL (2.0-8.3); Neutrophils Percent Auto 60.5 % (45-73); Platelet Count 311 X10*3/uL (160-400); Red Blood Count 4.83 X10*6/uL (4.60-5.80); Red Cell Distribution Width 13.5 % (11.0-16.0); White Blood Count 10.6 X10*3/uL (4.8-10.8)
[2022-06-27 16:43] LABS: COVID-19 Test Negative (Negative); IDNOW Serial# BCCEAD1C
[2022-06-27 16:45] LABS: Lactic Acid 1.3 mmol/L (0.5-2.0)
[2022-06-27 18:50] LABS: Glucose, Whole Blood 82 mg/dL (60-115)
--- NOTE | 2022-06-27 18:59 | PC.NURSE ---
Attempted to obtain IV on patient but was unsuccessful. Patient calm and cooperative; looking to be admitted for IV antibiotics for cellulitis on right leg.
[2022-06-27] MEDS: Piperacillin Sodium/Tazobactam 3.375 GM in 0.9 % Sodium Chloride 50 ML IV (19:23)
[2022-06-27 19:25] LABS: Alanine Aminotransferase 21 U/L (0-40); Albumin Level 4.3 g/dL (3.5-5.0); Alkaline Phosphatase 141 U/L (39-117); Anion Gap 15 (12-20); Aspartate Amino Transferase 21 U/L (5-37); Bilirubin Direct 0.2 mg/dL (0.0-0.5); Bilirubin Total 0.7 mg/dL (0.0-1.0); Blood Urea Nitrogen 23 mg/dL (9-16); Calcium 9.4 mg/dL (8.4-10.2); Carbon Dioxide 24 mmol/L (22-29); Chloride 104 mmol/L (96-108); Estimated Glomerular Filt Rate > 60; Glucose Random 104 mg/dL (60-115); Magnesium 1.6 mg/dL (1.6-2.6); Potassium 4.4 mmol/L (3.3-5.1); Sodium 139 mmol/L (135-145); Total Protein 6.2 g/dL (6.5-8.0)
[2022-06-27 19:37] VITALS: BP 167/94; PULSE 51; RESP 18; TEMP 37.1; O2SAT 99
[2022-06-27 19:46] LABS: Appearance Urine Clear; Color Urine Yellow; Glucose Urine UA >=1000 mg/dL (Negative); Leukocyte Esterase Urine Negative (Negative); Nitrite Urine Negative (Negative); PH 5.5 (5.0-9.0); Specific Gravity - Urine 1.015 (1.005-1.025); UMIC TRIGGER UACC YES; Urine Blood Negative (Negative); Urine Ketones Negative (Negative); Urine Protein Negative (Neg-Trace)
[2022-06-27 19:57] LABS: Bacteria Urine None Seen (None Seen); Hyaline Casts Urine 0-2 /LPF (0-2); RBC Urine 0-2 /HPF (0-2); Squamous Epithelial Cell Urine 0-2 /HPF (0-2); WBC Urine 0-5 /HPF (0-5)
--- NOTE | 2022-06-27 19:59 | PHA.MEDREC ---
Patient provided medication list. Pharmacy Consult ? Medication Reconciliation Pharmacy has completed the medication reconciliation.
--- NOTE | 2022-06-27 22:12 | P.HPHOSP_ITS ---
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 States that he noticed these changes about 2-3 days ago, denies any fever or chills, reports no drainage from the ulcer on the 2nd right toe, denies any chest pain, no shortness of breath no abdominal pain nausea or vomiting, no diarrhea constipation, no urinary symptoms and no lower extremity edema states history of neuropathy, therefore has no pain at this time No headache or change in vision, no weakness numbness or tingling. Patient has history of diabetic foot ulcer that led to osteomyelitis as well as amputation and is very concerned and worried about this leading to the same thing On arrival to the ED hemodynamically stable with no significant abnormal vitals Labs are significant for WBC count of 10.6, ESR of 4, CRP of 1, labs otherwise unremarkable Venous duplex negative for any DVT, Foot x-ray shows nonacute deformity of the 1st digit with degenerative changes suggestive of old surgery/trauma there is also [id number] soft tissue swelling laterally on the right ankle without underlying osseous abnormality Review of Systems Review of Systems: Yes all other systems are reviewed and are negative [facility] Medical History Adjustment disorder Annual physical exam Atherosclerotic cardiovascular disease BMI 30.0-30.9,adult BPH associated with nocturia CAD (coronary artery disease) Chronic osteomyelitis Depression Diabetic eye exam DM (diabetes mellitus) Essential hypertension ETOH abuse GERD (gastroesophageal reflux disease) Gout Hyperlipidemia LDL goal <100 Hypogammaglobulinemia Long-term current use of intravenous immunoglobulin (IVIG) Lymphoma Obesity due to excess calories Orthostatic hypotension EMIL (obstructive sleep apnea) PAF (paroxysmal atrial fibrillation) Persistent atrial fibrillation Rosacea Splenic marginal zone b-cell lymphoma Typical atrial flutter Family History Father Diabetes Mother Liver cancer Maternal Grandfather CVD (cardiovascular disease) Brother Myocardial infarction Surgical History History of bunionectomy History of cardiac cath History of colonoscopy History of esophagogastroduodenoscopy (EGD) Osteomyelitis Osteomyelitis Status post below-knee amputation of left lower extremity Social History Household Members: Spouse Housing: House Do you presently have visiting nurse or other home services: No Alcohol intake: former Year quit: 2019 Patient Tobacco Use Status: Never used Tobacco Smoked in Last 30 Days: No e-Cigarette/Vaping Use: Never Used Use of substances other than those prescribed or required for medical reasons: No Have you been hit, kicked, punched, or otherwise hurt by someone within the past year? 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 Cognitive needs: No Hearing needs: No Vision needs: Yes Meds Allergies Allergy/AdvReac Type Severity Reaction Status Date / Time vancomycin [VANCOMYCIN] Allergy Severe ANGIOEDEMA Verified 06/28/22 00:21 Sulfa (Sulfonamide Allergy Intermediate Rash Verified 06/28/22 00:21 Antibiotics) sulfamethoxazole Allergy rash Verified 06/28/22 00:21 [From Bactrim] trimethoprim [From Bactrim] Allergy Rash Verified 06/28/22 00:21 Active Medications: Current Medications Pharmacy Consult (Consult Rx Perform Med Rec) 1 each MISCELLANE ONCE PRN PRN Reason: Consult order Home Medications Medication Instructions Recorded Confirmed Last Taken Type duloxetine 60 mg capsule,delayed 60 mg PO DAILY 12/21/19 06/27/22 06/27/22 History release bupropion HCl 300 mg 24 hr tablet, 300 mg PO DAILY 02/27/20 06/27/22 06/27/22 History extended release (Wellbutrin XL) multivitamin 1 tab PO DAILY 02/27/20 06/27/22 06/27/22 History allopurinol 100 mg tablet 200 mg PO DAILY 02/08/21 06/27/22 06/27/22 History atorvastatin 20 mg tablet 20 mg PO BEDTIME 06/27/22 06/27/22 06/26/22 History lorazepam 1 mg tablet 1 mg BID PRN Alcohol Withdrawal 06/27/22 06/27/22 Unknown History naltrexone 50 mg tablet 50 mg PO DAILY PRN Withdrawal 06/27/22 06/27/22 Unknown History Symptoms Physical Exam Vital Signs and Narrative: Vital Signs: Last Vital Signs Temp 98.7 F 06/27/22 19:37 Pulse 51 06/27/22 19:37 Resp 18 06/27/22 19:37 BP 167/94 H 06/27/22 19:37 Pulse Ox 99 06/27/22 19:37 O2 Del Method Room Air 06/27/22 19:37 BMI result Body Mass Index 26.9 Const: General: cooperative and no acute distress Orientation/consciousness: patient oriented x3 Eyes: General: appearance normal, both eyes and all related structures Pupils: Equal, round and reactive pupils present Resp: Effort & Inspection: normal respiratory effort Auscultation: clear to auscultation bilaterally Cardio: Rate: regular rate Rhythm: regular rhythm GI: Palpation (GI): Soft to palpation Auscultation: normal bowel sounds Skin: General skin exam: no rashes or lesions noted Neuro: General: patient oriented x3 Cranial nerves: Yes Equal, round and reactive pupils present Cognition (Neuro): normal cognition Extrem: Other: has left below-knee amputation, prosthetic in place right 2nd great toe with ulcer at the base, there is a great erythema, warm there is erythema, warmth up to the mid breen on the right lower extremity Results Labs 06/27/22 16:17 06/27/22 16:16 Labs: Laboratory Results - last 24 hr 06/27/22 06/27/22 06/27/22 16:16 16:16 16:17 MCV 91.1 MCH 31.1 MCHC 34.1 RDW 13.5 Plt Count 311 MPV 9.6 Immature Gran % (Auto) 0.3 Neut % (Auto) 60.5 Lymph % (Auto) 21.8 [place] % (Auto) 11.3 H Eos % (Auto) 4.9 H Baso % (Auto) 1.2 Lymph # (Auto) 2.3 [place] # (Auto) 1.2 Eos # (Auto) 0.5 H Baso # (Auto) 0.1 Abs Immat Gran (auto) 0.03 Absolute Neuts (auto) 6.4 Absolute Nucleated RBC 0.000 Nucleated RBC % (auto) 0.0 Anion Gap 15 Estim Creat Clear Calc 92.0 Estimated GFR > 60 POC Glucose Random Glucose 104 Lactic Acid 1.3 Calcium 9.4 Magnesium 1.6 Total Bilirubin 0.7 Direct Bilirubin 0.2 AST 21 ALT 21 Alkaline Phosphatase 141 H Total Protein 6.2 L Albumin 4.3 Urine Color Urine Appearance Urine pH Ur Specific [place] Urine Protein Urine Glucose (UA) Urine Ketones Urine Blood Urine Nitrite Ur Leukocyte Esterase Urine RBC Urine WBC Ur Squamous Epith Cells Urine Bacteria Hyaline Casts COVID-19 (PATRICIO) COVID-19 Clin Com 06/27/22 06/27/22 06/27/22 16:17 18:44 19:29 MCV MCH MCHC RDW Plt Count MPV Immature Gran % (Auto) Neut % (Auto) Lymph % (Auto) [place] % (Auto) Eos % (Auto) Baso % (Auto) Lymph # (Auto) [place] # (Auto) Eos # (Auto) Baso # (Auto) Abs Immat Gran (auto) Absolute Neuts (auto) Absolute Nucleated RBC Nucleated RBC % (auto) Anion Gap Estim Creat Clear Calc Estimated GFR POC Glucose 82 Random Glucose Lactic Acid Calcium Magnesium Total Bilirubin Direct Bilirubin AST ALT Alkaline Phosphatase Total Protein Albumin Urine Color Yellow Urine Appearance Clear Urine pH 5.5 Ur Specific [place] 1.015 Urine Protein Negative Urine Glucose (UA) >=1000 H Urine Ketones Negative Urine Blood Negative Urine Nitrite Negative Ur Leukocyte Esterase Negative Urine RBC 0-2 Urine WBC 0-5 Ur Squamous Epith Cells 0-2 Urine Bacteria None Seen Hyaline Casts 0-2 COVID-19 (PATRICIO) Negative COVID-19 Clin Com See Note Imaging Radiologist's Impressions: Impressions Ankle X-Ray 06/27/22 15:38 IMPRESSION: 1. Mild to moderate soft tissue swelling more pronounced laterally without acute underlying osseous abnormality. 2. Small degenerative calcaneal spurs. Foot X-Ray 06/27/22 15:38 IMPRESSION: Nonacute deformity of the first digit with degenerative changes suggestive of old surgery/trauma. If there is concern for osteomyelitis in the first digit, dedicated isolated first digit radiographs with oblique views is recommended. Assessment and Plan (1) Right second toe ulcer: Qualifiers: Non-pressure ulcer stage: limited to breakdown of skin Qualified Code(s): L97.511 - Non-pressure chronic ulcer of other part of right foot limited to breakdown of skin Status: Acute (2) Cellulitis of right ankle: Status: Acute Plan 67-year-old male with past medical history of diabetes, osteomyelitis status post below-knee amputation on the left presents to the hospital with complaints of redness to his right lower extremity as well as ulcer on the 2nd right toe # cellulitis of right ankle - afebrile, no leukocytosis, limited with erythema, mild warmth - will treat with IV antibiotics given history - monitor symptoms # ulcer of 2nd right toe - no elevated ESR or CRP, given history of osteomyelitis will obtain MRI - continue IV antibiotics as above # diabetes - low-dose sliding scale insulin - diabetic diet # hyperlipidemia - continue statin # persistent AFib - rate controlled - continue digoxin and metoprolol as well as diltiazem - doesnt appear to be on AC? DVT prophylaxis: lovenox given patient's history of osteomyelitis and the 2nd right toe ulcer concerning for infection patient will require minimum 2 nights in-patient hospital stay for further evaluation Time Spent With Patient Time: Total time managing care of this patient today ____ minutes. Quality Stroke Does the patient have a stroke diagnosis?: No VTE Prior VTE?: No VTE Risk Level:: Medical - moderate - high VTE Device Contraindication: Treatment Not Indicated VTE Drug Contraindication: N/A - Med Ordered
[2022-06-27 22:34] LABS: C Reactive Protein 1.02 mg/dL (< or = 0.50)
--- NOTE | 2022-06-27 22:55 | PHA.PROG ---
Admission Date/Time: June 27, 2022 22:11 Indication: BONE Weight in k.254 kg Serum Creatinine - Last 168 Hours 06/27/22 16:16 Creatinine 0.93 Estimated CrCl and GFR - Last 168 Hours 06/27/22 16:16 Estim Creat Clear Calc 92.0 Estimated GFR > 60 Vancomycin Loading Dose: 2000 Current Vancomycin Dosing Regimen: 1000 Q 12 Vancomycin Monitoring using AUC goal of 400 - 600 range with trough as surrogate marker: 493 Date and Time for next Vancomycin Level to be drawn: 06/29 @ 1000 Pharmacist Comments on Vancomycin Plan: Vancomycin dosing will take advantage of [employer] as a clinical decision support tool that uses Bayesian modeling to calculate individual patient's pharmacokinetic parameters and forecast the patient's drug concentration time course with the target goal AUC 24 range of 400 - 600 mg/L/hr.
[2022-06-27 23:14] LABS: Erythrocyte Sedimentation Rate 4 MM/HR (0-15)
--- NOTE | 2022-06-27 23:43 | PC.NURSE ---
Pt relates anaphylactic reaction in the past with vancomycin. Hospitalist Riya made aware and states she will switch to another med.
--- NOTE | 2022-06-27 23:50 | PC.NURSE ---
Report to Tara PINO.
[2022-06-28] VITALS (8 sets, daily range): BP systolic 123–173; BP diastolic 68–92; PULSE 66–82; RESP 16–20; TEMP 36–37.1; O2SAT 95–99
[2022-06-28] MEDS: cefEPime HCl 2 GM in 0.9 % Sodium Chloride 50 ML IV ×4 (00:01→22:15)
[2022-06-28] MEDS: 0.9 % Sodium Chloride Flush 3 ML SYRINGE IVFLUSH ×3 (00:02→16:48)
--- NOTE | 2022-06-28 00:05 | PC.NURSE ---
MRI checklist completed with pt.
[2022-06-28] MEDS: Doxycycline Hyclate 100 MG in 0.9 % Sodium Chloride 250 ML 166.67 MG IV ×2 (04:44→16:49)
[2022-06-28] MEDS: Acetaminophen 325 MG TABLET 650 MG PO (04:50)
[2022-06-28 06:48] LABS: MANUAL DIFF FLAG NO
[2022-06-28 06:55] LABS: Basophils Absolute Auto 0.1 X10*3/uL (0.0-0.2); Basophils Percent Auto 1.1 % (0-2); Eosinophils Absolute Auto 0.5 X10*3/uL (0.0-0.4); Eosinophils Percent Auto 4.9 % (0-4); Hemoglobin 15.4 g/dl (14.0-18.0); Imm Gran Abs Auto 0.03 X10*3/uL (0.00-0.03); Imm Gran Pct Auto 0.3 % (0.0-0.4); Lymphocytes Percent Auto 9.3 % (20-40); Mean Corpuscular HGB Conc 34.2 g/dl (31.0-36.0); Mean Corpuscular Hemoglobin 31.4 pg (27.0-33.0); Mean Corpuscular Volume 91.6 fL (80.0-98.0); Mean Platelet Volume 10.4 fL (9.4-12.4); Monocytes Percent Auto 9.9 % (2-11); Neutrophils Absolute Auto 7.7 x10*3/uL (2.0-8.3); Neutrophils Percent Auto 74.5 % (45-73); Platelet Count 316 X10*3/uL (160-400); Red Blood Count 4.91 X10*6/uL (4.60-5.80); Red Cell Distribution Width 13.5 % (11.0-16.0); White Blood Count 10.3 X10*3/uL (4.8-10.8)
[2022-06-28 07:20] LABS: Anion Gap 19 (12-20); Blood Urea Nitrogen 19 mg/dL (9-16); Calcium 9.1 mg/dL (8.4-10.2); Carbon Dioxide 20 mmol/L (22-29); Chloride 104 mmol/L (96-108); Estimated Glomerular Filt Rate > 60; Glucose Random 99 mg/dL (60-115); Sodium 139 mmol/L (135-145)
[2022-06-28 07:21] LABS: Glucose, Whole Blood 106 mg/dL (60-115)
[2022-06-28] MEDS: Metoprolol Tartrate 50 MG TABLET PO ×2 (09:09→20:47)
[2022-06-28] MEDS: buPROPion HCl XL 300 MG TAB.ER.24H PO (09:09)
[2022-06-28] MEDS: Thiamine HCL 100 MG TABLET PO (09:10)
[2022-06-28] MEDS: Zinc Sulfate 220 MG CAPSULE PO (09:10)
[2022-06-28] MEDS: Multivitamin TABLET 1 TAB PO (09:10)
[2022-06-28] MEDS: Folic Acid 1 MG TABLET PO (09:10)
[2022-06-28] MEDS: Ascorbic Acid 500 MG TABLET PO (09:10)
[2022-06-28] MEDS: dilTIAZem HCL CD 180 MG CAP.ER.24H PO ×2 (09:10→20:47)
[2022-06-28] MEDS: allopurinoL 100 MG TABLET 200 MG PO (09:10)
[2022-06-28] MEDS: DULoxetine HCl 60 MG CAPSULE.DR PO (09:10)
[2022-06-28] MEDS: Digoxin 0.125 MG TABLET PO (09:10)
[2022-06-28] MEDS: Clotrimazole 1 % Cream 15 GM TUBE 1 APPL TOPICAL (09:11)
--- NOTE | 2022-06-28 10:45 | MHC.CM.PN ---
Addendum entered by Amy Enriquez RN 06/28/22 10:53: PATIENT DOES RECEIVE IVIG HERE AT [facility] [place] Original Note: PATIENT LIVES WITH HCP/ HCP ON FILE AND VERIFIED. H HAS A PROSTHETIC LEFT LEG. NO CANE OR WALKER. USES [facility] (TYPICALLY TELE-HEALTH BUT DOES WALK TO APPOINTMENTS ON OCCASION.) [facility] [place] PROVIDES 8 1-WAY TRANSPORTS MONTHLY (OR 4 ROUND TRIP) PLAN IS FOR MRI TODAY. LIKELY HERE A FEW DAYS ON IV ABX AND HOME - SELF CARE IMM 06/28 IN CHART
[2022-06-28] MEDS: Dabigatran Etexilate Mesylate 150 MG CAPSULE PO ×2 (10:50→20:46)
[2022-06-28 11:09] LABS: Glucose, Whole Blood 141 mg/dL (60-115)
--- NOTE | 2022-06-28 11:48 | HO.PM.IMPN ---
Subjective Subjective Date of Service: 06/28/22 Interval History: no fever painful/swollen R foot Review of Systems Review of Systems: Yes all other systems are reviewed and are negative Physical Exam Vital Signs: Vital Signs: Last Vital Signs Temp 97.5 F 06/28/22 07:11 Pulse 82 06/28/22 07:11 Resp 18 06/28/22 07:11 BP 123/73 06/28/22 07:11 Pulse Ox 98 06/28/22 07:11 O2 Del Method Room Air 06/28/22 07:11 BMI result Body Mass Index 26.9 Gen: in no acute distress HEENT: sclera anicteric, moist mucus membranes Neck: supple Lungs: clear to auscultation bilaterally Heart: regular rate and rhythm, no murmurs Abd: soft, non-tender, non-distended Ext: s/p L BKA. R 2nd toe with dry ulcer at base with erythema, warmth, and induration extending proximally over the dorsum of the foot to the mid-breen Skin: warm/well-perfused Neuro: alert and oriented x3, no focal findings Psych: appropriate affect Objective Data Active Medications Acetaminophen (Acetaminophen 325 Mg Tablet) 650 mg PO Q6H PRN PRN Reason: Pain, Mild (Pain Scale 1-3) Last Admin: 06/28/22 04:50 Dose: 650 mg Documented By: JUHI Allopurinol (Allopurinol 100 Mg Tablet) 200 mg PO DAILY [facility] Last Admin: 06/28/22 09:10 Dose: 200 mg Documented By: KARTHIKEYAN Ascorbic Acid (Ascorbic Acid 500 Mg Tablet) 500 mg PO DAILY [facility] Last Admin: 06/28/22 09:10 Dose: 500 mg Documented By: KARTHIKEYAN Atorvastatin Calcium (Atorvastatin Calcium 20 Mg Tablet) 20 mg PO BEDTIME [facility] Bupropion HCl (Bupropion Hcl Xl 300 Mg Tab.Er.24h) 300 mg PO DAILY [facility] Last Admin: 06/28/22 09:09 Dose: 300 mg Documented By: KARTHIKEYAN Clotrimazole (Clotrimazole 1 % Cream 15 Gm Tube) 1 appl TOPICAL DAILY [facility] Last Admin: 06/28/22 09:11 Dose: 1 appl Documented By: KARTHIKEYAN Dabigatran (Dabigatran Etexilate Mesylate 150 Mg Capsule) 150 mg PO BID [facility] Last Admin: 06/28/22 10:50 Dose: 150 mg Documented By: KARTHIKEYAN Digoxin (Digoxin 0.125 Mg Tablet) 0.125 mg PO DAILY [facility] Last Admin: 06/28/22 09:10 Dose: 0.125 mg Documented By: KARTHIKEYAN Diltiazem HCl (Diltiazem Hcl Cd 180 Mg Cap.Er.24h) 180 mg PO BID [facility]; Protocol Last Admin: 06/28/22 09:10 Dose: 180 mg Documented By: KARTHIKEYAN Docusate Sodium (Docusate Sodium 100 Mg Capsule) 100 mg PO DAILY PRN PRN Reason: Constipation Duloxetine HCl (Duloxetine Hcl 60 Mg Capsule.Dr) 60 mg PO DAILY [facility] Last Admin: 06/28/22 09:10 Dose: 60 mg Documented By: KARTHIKEYAN Folic Acid (Folic Acid 1 Mg Tablet) 1 mg PO DAILY [facility] Last Admin: 06/28/22 09:10 Dose: 1 mg Documented By: KARTHIKEYAN Glucose (Glucose Gel 15 Gm Gel..Gram.) 15 gm PO Q15M PRN; Protocol PRN Reason: per Hypoglycemia Standing Ord. Cefepime HCl 2 gm/ Sodium (Chloride) 50 mls @ 100 mls/hr IV Q8H [facility] Last Infusion: 06/28/22 07:41 Dose: 0 mls/hr Documented By: KARTHIKEYAN Dextrose (D10) 250 mls @ 750 mls/hr IV Q15M PRN; Protocol PRN Reason: per Hypoglycemia Standing Ord. Doxycycline Hyclate 100 mg/ (Sodium Chloride) 250 mls @ 166.67 mls/hr IV Q12H [facility] Last Infusion: 06/28/22 06:15 Dose: 0 mls/hr Documented By: JUHI Insulin Human Lispro (Insulin Lispro 100 Unit/Ml 3 Ml Vial) 0 unit SUBCUT QIDACHS [facility]; Protocol Last Admin: 06/28/22 11:23 Dose: Not Given Documented By: KARTHIKEYAN Non-Admin Reason: No Insulin Coverage Lorazepam (Lorazepam 1 Mg Tablet) 1 mg PO BID PRN PRN Reason: Alcohol Withdrawal Metoprolol Tartrate (Metoprolol Tartrate 50 Mg Tablet) 50 mg PO BID [facility]; Protocol Last Admin: 06/28/22 09:09 Dose: 50 mg Documented By: KARTHIKEYAN Multivitamins/Vitamin C (Multivitamin Tablet) 1 tab PO DAILY [facility] Last Admin: 06/28/22 09:10 Dose: 1 tab Documented By: KARTHIKEYAN Naltrexone HCl (Naltrexone Hcl 50 Mg Tablet) 50 mg PO DAILY PRN PRN Reason: Withdrawal Symptoms Ondansetron HCl (Ondansetron Hcl 4 Mg/2 Ml Vial) 4 mg IVPUSH Q8H PRN PRN Reason: Nausea and Vomiting Pharmacy Consult (Consult Rx Perform Med Rec) 1 each MISCELLANE ONCE PRN PRN Reason: Consult order Sodium Chloride (0.9 % Sodium Chloride Flush 3 Ml Syringe) 3 ml IVFLUSH QSHIFT [facility] Last Admin: 06/28/22 09:11 Dose: 3 ml Documented By: KARTHIKEYAN Thiamine HCl (Thiamine Hcl 100 Mg Tablet) 100 mg PO DAILY [facility] Last Admin: 06/28/22 09:10 Dose: 100 mg Documented By: KARTHIKEYAN Zinc Sulfate (Zinc Sulfate 220 Mg Capsule) 220 mg PO DAILY [facility] Last Admin: 06/28/22 09:10 Dose: 220 mg Documented By: KARTHIKEYAN Labs 06/28/22 05:27 06/28/22 05:27 Labs: Laboratory Results - last 24 hr 06/27/22 06/27/22 06/27/22 16:16 16:16 16:17 MCV 91.1 MCH 31.1 MCHC 34.1 RDW 13.5 Plt Count 311 MPV 9.6 Immature Gran % (Auto) 0.3 Neut % (Auto) 60.5 Lymph % (Auto) 21.8 [place] % (Auto) 11.3 H Eos % (Auto) 4.9 H Baso % (Auto) 1.2 Lymph # (Auto) 2.3 [place] # (Auto) 1.2 Eos # (Auto) 0.5 H Baso # (Auto) 0.1 Abs Immat Gran (auto) 0.03 Absolute Neuts (auto) 6.4 Absolute Nucleated RBC 0.000 Nucleated RBC % (auto) 0.0 ESR Anion Gap 15 Estim Creat Clear Calc 92.0 Estimated GFR > 60 POC Glucose Random Glucose 104 Lactic Acid 1.3 Calcium 9.4 Magnesium 1.6 Total Bilirubin 0.7 Direct Bilirubin 0.2 AST 21 ALT 21 Alkaline Phosphatase 141 H C-Reactive Protein 1.02 H Total Protein 6.2 L Albumin 4.3 Urine Color Urine Appearance Urine pH Ur Specific [place] Urine Protein Urine Glucose (UA) Urine Ketones Urine Blood Urine Nitrite Ur Leukocyte Esterase Urine RBC Urine WBC Ur Squamous Epith Cells Urine Bacteria Hyaline Casts COVID-19 (PATRICIO) COVID-19 Clin Com 06/27/22 06/27/22 06/27/22 16:17 16:17 18:44 MCV MCH MCHC RDW Plt Count MPV Immature Gran % (Auto) Neut % (Auto) Lymph % (Auto) [place] % (Auto) Eos % (Auto) Baso % (Auto) Lymph # (Auto) [place] # (Auto) Eos # (Auto) Baso # (Auto) Abs Immat Gran (auto) Absolute Neuts (auto) Absolute Nucleated RBC Nucleated RBC % (auto) ESR 4 Anion Gap Estim Creat Clear Calc Estimated GFR POC Glucose 82 Random Glucose Lactic Acid Calcium Magnesium Total Bilirubin Direct Bilirubin AST ALT Alkaline Phosphatase C-Reactive Protein Total Protein Albumin Urine Color Urine Appearance Urine pH Ur Specific [place] Urine Protein Urine Glucose (UA) Urine Ketones Urine Blood Urine Nitrite Ur Leukocyte Esterase Urine RBC Urine WBC Ur Squamous Epith Cells Urine Bacteria Hyaline Casts COVID-19 (PATRICIO) Negative COVID-19 Clin Com See Note 06/27/22 06/28/22 06/28/22 19:29 05:27 05:27 MCV 91.6 MCH 31.4 MCHC 34.2 RDW 13.5 Plt Count 316 MPV 10.4 Immature Gran % (Auto) 0.3 Neut % (Auto) 74.5 H Lymph % (Auto) 9.3 L [place] % (Auto) 9.9 Eos % (Auto) 4.9 H Baso % (Auto) 1.1 Lymph # (Auto) 1.0 L [place] # (Auto) 1.0 Eos # (Auto) 0.5 H Baso # (Auto) 0.1 Abs Immat Gran (auto) 0.03 Absolute Neuts (auto) 7.7 Absolute Nucleated RBC 0.000 Nucleated RBC % (auto) 0.0 ESR Anion Gap 19 Estim Creat Clear Calc 93.0 Estimated GFR > 60 POC Glucose Random Glucose 99 Lactic Acid Calcium 9.1 Magnesium Total Bilirubin Direct Bilirubin AST ALT Alkaline Phosphatase C-Reactive Protein Total Protein Albumin Urine Color Yellow Urine Appearance Clear Urine pH 5.5 Ur Specific [place] 1.015 Urine Protein Negative Urine Glucose (UA) >=1000 H Urine Ketones Negative Urine Blood Negative Urine Nitrite Negative Ur Leukocyte Esterase Negative Urine RBC 0-2 Urine WBC 0-5 Ur Squamous Epith Cells 0-2 Urine Bacteria None Seen Hyaline Casts 0-2 COVID-19 (PATRICIO) COVID-19 Clin Com 06/28/22 06/28/22 07:11 11:06 MCV MCH MCHC RDW Plt Count MPV Immature Gran % (Auto) Neut % (Auto) Lymph % (Auto) [place] % (Auto) Eos % (Auto) Baso % (Auto) Lymph # (Auto) [place] # (Auto) Eos # (Auto) Baso # (Auto) Abs Immat Gran (auto) Absolute Neuts (auto) Absolute Nucleated RBC Nucleated RBC % (auto) ESR Anion Gap Estim Creat Clear Calc Estimated GFR POC Glucose 106 141 H Random Glucose Lactic Acid Calcium Magnesium Total Bilirubin Direct Bilirubin AST ALT Alkaline Phosphatase C-Reactive Protein Total Protein Albumin Urine Color Urine Appearance Urine pH Ur Specific [place] Urine Protein Urine Glucose (UA) Urine Ketones Urine Blood Urine Nitrite Ur Leukocyte Esterase Urine RBC Urine WBC Ur Squamous Epith Cells Urine Bacteria Hyaline Casts COVID-19 (PATRICIO) COVID-19 Clin Com Assessment and Plan (1) Cellulitis of right ankle: Status: Acute Plan d#2 67yo M with DM2, hx osteomyelitis s/p L BKA presenting with R foot ulcer with cellulitis # infected DM foot ulcer with cellulitis - continue doxy+ cefp d#2, MRI pending to assess for osteomyelitis, follow BCXx # DM2 - correction-dose lispro # choronic AF - continue metoprolol, diltiazem, digoxin # continue dabigatran # HLD - statin # gout - allopurinol # mood disorder - duloxetine, buprion # VTE ppx: dabigatran # dispo: likely home eventually In my clinical judgment, the patient requires continued inpatient hospitalization for the following reasons: IV ABX Time Spent With Patient Time: Total time managing care of this patient today _40___ minutes. Quality Stroke Does the patient have a stroke diagnosis?: No VTE Prior VTE?: No VTE Risk Level:: Medical - moderate - high VTE Device Contraindication: Treatment Not Indicated VTE Drug Contraindication: N/A - Med Ordered
[2022-06-28] MEDS: Butalb/Acetamin/Caff 50/325/40 TABLET 1 TAB PO (14:40)
[2022-06-28 16:09] LABS: Glucose, Whole Blood 124 mg/dL (60-115)
[2022-06-28 19:42] LABS: Glucose, Whole Blood 118 mg/dL (60-115)
[2022-06-28] MEDS: Atorvastatin Calcium 20 MG TABLET PO (20:47)
[2022-06-29] MEDS: 0.9 % Sodium Chloride Flush 3 ML SYRINGE IVFLUSH ×4 (00:05→23:44)
[2022-06-29 04:00] VITALS: BP 125/63; PULSE 66; RESP 16; TEMP 36.8; O2SAT 96
[2022-06-29] MEDS: Doxycycline Hyclate 100 MG in 0.9 % Sodium Chloride 250 ML 166.67 MG IV ×2 (04:16→15:59)
[2022-06-29] MEDS: cefEPime HCl 2 GM in 0.9 % Sodium Chloride 50 ML IV ×3 (06:24→22:24)
[2022-06-29 06:54] LABS: Estimated Glomerular Filt Rate > 60
[2022-06-29 07:13] LABS: Glucose, Whole Blood 88 mg/dL (60-115)
[2022-06-29 07:26] VITALS: BP 134/84; PULSE 75; RESP 18; TEMP 36.7; O2SAT 99
[2022-06-29 08:41] VITALS: BP 143/67; PULSE 76; O2SAT 99
[2022-06-29] MEDS: buPROPion HCl XL 300 MG TAB.ER.24H PO (08:44)
[2022-06-29] MEDS: allopurinoL 100 MG TABLET 200 MG PO (08:44)
[2022-06-29] MEDS: Digoxin 0.125 MG TABLET PO (08:44)
[2022-06-29] MEDS: DULoxetine HCl 60 MG CAPSULE.DR PO (08:45)
[2022-06-29] MEDS: Multivitamin TABLET 1 TAB PO (08:45)
[2022-06-29] MEDS: Thiamine HCL 100 MG TABLET PO (08:45)
[2022-06-29] MEDS: Ascorbic Acid 500 MG TABLET PO (08:45)
[2022-06-29] MEDS: Folic Acid 1 MG TABLET PO (08:45)
[2022-06-29] MEDS: Dabigatran Etexilate Mesylate 150 MG CAPSULE PO ×2 (08:45→21:17)
[2022-06-29] MEDS: Zinc Sulfate 220 MG CAPSULE PO (08:45)
[2022-06-29] MEDS: dilTIAZem HCL CD 180 MG CAP.ER.24H PO ×2 (08:45→21:17)
[2022-06-29] MEDS: Metoprolol Tartrate 50 MG TABLET PO ×2 (08:46→21:17)
--- NOTE | 2022-06-29 09:39 | HO.PM.IMPN ---
Subjective Subjective Date of Service: 06/29/22 Interval History: no fever/chills redness/swelling improved R foot Review of Systems Review of Systems: Yes all other systems are reviewed and are negative Physical Exam Vital Signs: Vital Signs: Last Vital Signs Temp 98.0 F 06/29/22 07:26 Pulse 76 06/29/22 08:41 Resp 18 06/29/22 07:26 BP 143/67 H 06/29/22 08:41 Pulse Ox 99 06/29/22 08:41 O2 Del Method Room Air 06/29/22 08:41 BMI result Body Mass Index 26.9 Gen: in no acute distress HEENT: sclera anicteric, moist mucus membranes Neck: supple Lungs: clear to auscultation bilaterally Heart: regular rate and rhythm, no murmurs Abd: soft, non-tender, non-distended Ext: s/p L BKA.? R 2nd toe with dry ulcer at base with erythema, warmth, and induration over dorsum of foot but no longer extending to mid-breen Skin: warm/well-perfused Neuro: alert and oriented x3, no focal findings Psych: appropriate affect Objective Data Active Medications Acetaminophen (Acetaminophen 325 Mg Tablet) 650 mg PO Q6H PRN PRN Reason: Pain, Mild (Pain Scale 1-3) Last Admin: 06/28/22 04:50 Dose: 650 mg Documented By: JUHI Allopurinol (Allopurinol 100 Mg Tablet) 200 mg PO DAILY [facility] Last Admin: 06/29/22 08:44 Dose: 200 mg Documented By: JAKE Ascorbic Acid (Ascorbic Acid 500 Mg Tablet) 500 mg PO DAILY [facility] Last Admin: 06/29/22 08:45 Dose: 500 mg Documented By: JAKE Atorvastatin Calcium (Atorvastatin Calcium 20 Mg Tablet) 20 mg PO BEDTIME [facility] Last Admin: 06/28/22 20:47 Dose: 20 mg Documented By: ALEXA Bupropion HCl (Bupropion Hcl Xl 300 Mg Tab.Er.24h) 300 mg PO DAILY [facility] Last Admin: 06/29/22 08:44 Dose: 300 mg Documented By: JAKE Clotrimazole (Clotrimazole 1 % Cream 15 Gm Tube) 1 appl TOPICAL DAILY [facility] Last Admin: 06/28/22 09:11 Dose: 1 appl Documented By: KARTHIKEYAN Dabigatran (Dabigatran Etexilate Mesylate 150 Mg Capsule) 150 mg PO BID [facility] Last Admin: 06/29/22 08:45 Dose: 150 mg Documented By: JAKE Digoxin (Digoxin 0.125 Mg Tablet) 0.125 mg PO DAILY [facility] Last Admin: 06/29/22 08:44 Dose: 0.125 mg Documented By: JAKE Diltiazem HCl (Diltiazem Hcl Cd 180 Mg Cap.Er.24h) 180 mg PO BID [facility]; Protocol Last Admin: 06/29/22 08:45 Dose: 180 mg Documented By: JAKE Docusate Sodium (Docusate Sodium 100 Mg Capsule) 100 mg PO DAILY PRN PRN Reason: Constipation Duloxetine HCl (Duloxetine Hcl 60 Mg Capsule.Dr) 60 mg PO DAILY [facility] Last Admin: 06/29/22 08:45 Dose: 60 mg Documented By: JAKE Folic Acid (Folic Acid 1 Mg Tablet) 1 mg PO DAILY [facility] Last Admin: 06/29/22 08:45 Dose: 1 mg Documented By: JAKE Glucose (Glucose Gel 15 Gm Gel..Gram.) 15 gm PO Q15M PRN; Protocol PRN Reason: per Hypoglycemia Standing Ord. Cefepime HCl 2 gm/ Sodium (Chloride) 50 mls @ 100 mls/hr IV Q8H [facility] Last Infusion: 06/29/22 06:58 Dose: 0 mls/hr Documented By: FABIO Dextrose (D10) 250 mls @ 750 mls/hr IV Q15M PRN; Protocol PRN Reason: per Hypoglycemia Standing Ord. Doxycycline Hyclate 100 mg/ (Sodium Chloride) 250 mls @ 166.67 mls/hr IV Q12H [facility] Last Infusion: 06/29/22 05:52 Dose: 0 mls/hr Documented By: FABIO Insulin Human Lispro (Insulin Lispro 100 Unit/Ml 3 Ml Vial) 0 unit SUBCUT QIDACHS [facility]; Protocol Last Admin: 06/29/22 08:46 Dose: Not Given Documented By: JAKE Non-Admin Reason: See Note Comments: Blood sugar 88 Lorazepam (Lorazepam 1 Mg Tablet) 1 mg PO BID PRN PRN Reason: Alcohol Withdrawal Metoprolol Tartrate (Metoprolol Tartrate 50 Mg Tablet) 50 mg PO BID [facility]; Protocol Last Admin: 06/29/22 08:46 Dose: 50 mg Documented By: JAKE Multivitamins/Vitamin C (Multivitamin Tablet) 1 tab PO DAILY [facility] Last Admin: 06/29/22 08:45 Dose: 1 tab Documented By: JAKE Naltrexone HCl (Naltrexone Hcl 50 Mg Tablet) 50 mg PO DAILY PRN PRN Reason: Withdrawal Symptoms Ondansetron HCl (Ondansetron Hcl 4 Mg/2 Ml Vial) 4 mg IVPUSH Q8H PRN PRN Reason: Nausea and Vomiting Pharmacy Consult (Consult Rx Perform Med Rec) 1 each MISCELLANE ONCE PRN PRN Reason: Consult order Sodium Chloride (0.9 % Sodium Chloride Flush 3 Ml Syringe) 3 ml IVFLUSH QSHIFT [facility] Last Admin: 06/29/22 08:44 Dose: 3 ml Documented By: JAKE Thiamine HCl (Thiamine Hcl 100 Mg Tablet) 100 mg PO DAILY [facility] Last Admin: 06/29/22 08:45 Dose: 100 mg Documented By: JAKE Zinc Sulfate (Zinc Sulfate 220 Mg Capsule) 220 mg PO DAILY [facility] Last Admin: 06/29/22 08:45 Dose: 220 mg Documented By: JAKE Labs 06/28/22 05:27 06/29/22 05:23 Labs: Laboratory Results - last 24 hr 06/28/22 06/28/22 06/28/22 11:06 15:54 19:32 Estim Creat Clear Calc Estimated GFR POC Glucose 141 H 124 H 118 H 06/29/22 06/29/22 05:23 07:09 Estim Creat Clear Calc 94.0 Estimated GFR > 60 POC Glucose 88 Impressions Foot MRI 06/28/22 13:16 IMPRESSION: This examination is severely limited because of image degrading motion artifact. No definite signs of osteomyelitis with specific attention made to the 2nd toe given the clinical indication. Probable small ulceration along the plantar aspect of the distal 2nd toe at the level of the distal phalanx. Probable surrounding edema and/or cellulitis. No findings to suggest osteomyelitis. 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 This is similar to that noted on the prior MRI in 2016. Microbiology Microbiology Results: Microbiology 06/27/22 19:14 Blood Culture - Preliminary Blood - Venous No growth after 24 hours. 06/27/22 19:14 Blood Culture - Preliminary Blood - Venous No growth after 24 hours. Assessment and Plan (1) Cellulitis of right ankle: Status: Acute Plan d#3 67yo M with DM2, hx osteomyelitis s/p L BKA presenting with R foot ulcer with cellulitis # infected DM foot ulcer with cellulitis - continue doxy+ cefepime d#2 [pt allergic to vanco] - BCx NGTD - MRI s evidence of osteomyelitis # DM2 - correction-dose lispro # chronic AF - continue metoprolol, diltiazem, digoxin - continue dabigatran # HLD - statin # gout - allopurinol # mood disorder - duloxetine, buprion # VTE ppx: dabigatran # dispo: likely home tomorrow if continued improvement and BCx negative In my clinical judgment, the patient requires continued inpatient hospitalization for the following reasons: IV ABX Time Spent With Patient Time: Total time managing care of this patient today ___35_ minutes. Quality Stroke Does the patient have a stroke diagnosis?: No VTE Prior VTE?: No VTE Risk Level:: Medical - moderate - high VTE Device Contraindication: Treatment Not Indicated VTE Drug Contraindication: N/A - Med Ordered
[2022-06-29 11:06] LABS: Glucose, Whole Blood 141 mg/dL (60-115)
--- NOTE | 2022-06-29 13:52 | MHC.CM.PN ---
PER ROUNDS, NO OSTEO. 1-2 MORE DAYS OF IV ABX AND DC HOME - SELF CARE
[2022-06-29 15:35] VITALS: BP 129/60; PULSE 62; RESP 20; TEMP 36.4; O2SAT 97
[2022-06-29 16:01] LABS: Glucose, Whole Blood 97 mg/dL (60-115)
[2022-06-29 19:16] VITALS: BP 154/80; PULSE 69; RESP 20; TEMP 36.1; O2SAT 98
[2022-06-29 19:38] LABS: Glucose, Whole Blood 129 mg/dL (60-115)
[2022-06-29] MEDS: Atorvastatin Calcium 20 MG TABLET PO (21:17)
[2022-06-29 23:32] VITALS: BP 135/75; PULSE 75; RESP 18; TEMP 36.4; O2SAT 97
[2022-06-30 03:50] VITALS: BP 135/67; PULSE 50; RESP 18; TEMP 36.8; O2SAT 99
[2022-06-30] MEDS: Doxycycline Hyclate 100 MG in 0.9 % Sodium Chloride 250 ML 166.67 MG IV (03:54)
[2022-06-30] MEDS: cefEPime HCl 2 GM in 0.9 % Sodium Chloride 50 ML IV (06:35)
[2022-06-30 07:29] VITALS: BP 139/69; PULSE 55; RESP 18; TEMP 36.3; O2SAT 98
[2022-06-30 07:44] LABS: Glucose, Whole Blood 120 mg/dL (60-115)
[2022-06-30] MEDS: Zinc Sulfate 220 MG CAPSULE PO (09:25)
[2022-06-30] MEDS: Digoxin 0.125 MG TABLET PO (09:25)
[2022-06-30] MEDS: Dabigatran Etexilate Mesylate 150 MG CAPSULE PO (09:25)
[2022-06-30] MEDS: Folic Acid 1 MG TABLET PO (09:26)
[2022-06-30] MEDS: Ascorbic Acid 500 MG TABLET PO (09:26)
[2022-06-30] MEDS: Metoprolol Tartrate 50 MG TABLET PO (09:26)
[2022-06-30] MEDS: DULoxetine HCl 60 MG CAPSULE.DR PO (09:26)
[2022-06-30] MEDS: dilTIAZem HCL CD 180 MG CAP.ER.24H PO (09:26)
[2022-06-30] MEDS: buPROPion HCl XL 300 MG TAB.ER.24H PO (09:26)
[2022-06-30] MEDS: Multivitamin TABLET 1 TAB PO (09:26)
[2022-06-30] MEDS: allopurinoL 100 MG TABLET 200 MG PO (09:27)
[2022-06-30] MEDS: Thiamine HCL 100 MG TABLET PO (09:27)
--- NOTE | 2022-06-30 10:23 | PM.DS ---
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 States that he noticed these changes about 2-3 days ago, denies any fever or chills, reports no drainage from the ulcer on the 2nd right toe, denies any chest pain, no shortness of breath no abdominal pain nausea or vomiting, no diarrhea constipation, no urinary symptoms and no lower extremity edema ? states history of neuropathy, therefore has no pain at this time No headache or change in vision, no weakness numbness or tingling.? Patient has history of diabetic foot ulcer that led to osteomyelitis as well as amputation and is very concerned and worried about this leading to the same thing On arrival to the ED hemodynamically stable with no significant abnormal vitals Labs are significant for WBC count of 10.6, ESR of 4, CRP of 1, labs otherwise unremarkable Venous duplex negative for any DVT, Foot x-ray shows? nonacute deformity of the 1st digit with? degenerative changes suggestive of old surgery/trauma ?there is also [id number] soft tissue swelling laterally on the right ankle without underlying osseous abnormality infected DM foot ulcer with cellulitis MRI negative for osteomyelitis. Treated with IV doxy+ cefepime as patient allergic to vanco. Erythema and edema improved. Patient remained afebrile. Blood cultures remained negative to date. Patient will be discharged home to complete course of amoxicillin and doxycycline. Has follow up scheduled with PCP in one week. Time Spent with Patient Time attestation: Total time managing care of this patient today ____ minutes. Discharge coordination time: Greater than 30 minutes Quality: Safe Use of Opioids Does Pt have an Active Cancer Diagnosis on the Problem List?: No Quality: Stroke Does the patient have a stroke diagnosis?: No Physical Exam Vital Signs: Vital Signs: Last Vital Signs Temp 97.4 F 06/30/22 07:29 Pulse 55 06/30/22 07:29 Resp 18 06/30/22 07:29 BP 139/69 06/30/22 07:29 Pulse Ox 98 06/30/22 07:29 O2 Del Method Room Air 06/30/22 07:29 BMI result Body Mass Index 26.9 Const: General: cooperative, comfortable, no acute distress, alert and awake Nutritional Appearance: average body habitus Orientation/consciousness: patient oriented x3 Resp: Effort & Inspection: normal respiratory effort and able to speak in complete sentences GI: Palpation (GI): Soft to palpation and nontender Skin: Other: right foot with dry ulcer second toe at base; mild swelling, erythema to first, second toes; no erythema to dorsum of foot or breen; overall swelling and erythema improved. no induration or drainage Neuro: General: patient oriented x3 Extrem: Other: s/p left BKA DS: Data Data Completed and Pending Labs on day of discharge: Laboratory Results - last 24 hr 06/29/22 06/29/22 06/29/22 11:02 15:50 19:32 POC Glucose 141 H 97 129 H 06/30/22 07:31 POC Glucose 120 H Preliminary micro results at discharge 06/27/22 19:14 Blood Culture - Preliminary Blood - Venous No growth after 48 hours. 06/27/22 19:14 Blood Culture - Preliminary Blood - Venous No growth after 48 hours. Imaging MRI: Radiologist's impression: ITS Impressions Ankle X-Ray 06/27/22 15:38 IMPRESSION: 1. Mild to moderate soft tissue swelling more pronounced laterally without acute underlying osseous abnormality. 2. Small degenerative calcaneal spurs. Foot X-Ray 06/27/22 15:38 IMPRESSION: Nonacute deformity of the first digit with degenerative changes suggestive of old surgery/trauma. If there is concern for osteomyelitis in the first digit, dedicated isolated first digit radiographs with oblique views is recommended. Venous Duplex 06/27/22 22:52 IMPRESSION: No DVT demonstrated in the right lower extremity. Foot MRI 06/28/22 13:16 IMPRESSION: This examination is severely limited because of image degrading motion artifact. No definite signs of osteomyelitis with specific attention made to the 2nd toe given the clinical indication. Probable small ulceration along the plantar aspect of the distal 2nd toe at the level of the distal phalanx. Probable surrounding edema and/or cellulitis. No findings to suggest osteomyelitis. 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 This is similar to that noted on the prior MRI in 2016. Discharge Plan Discharge Anticipated Discharge Date/Time: 06/30/22 10:16 Patient Disposition: Home, Self-Care Discharge Diagnosis: Infected DM foot ulcer with cellulitis Referrals: Nikole Mauricio MD [Primary Care Provider] - 1 Week Discharge Medications: New doxycycline hyclate 100 mg tablet 100 mg PO BID 7 Days Qty: 14 0RF amoxicillin-pot clavulanate 875-125 mg tablet 1 tab PO BID 7 Days Qty: 14 0RF Continued (DME) blood-glucose meter [FreeStyle Lite Meter] Kit See Rx Instructions .ROUTE .MEDSUPPLY Qty: 1 0RF Rx Instructions: As directed 3x/day (DME) FreeStyle Lite Strips Strip See Rx Instructions .Route Qty: 300 3RF Rx Instructions: Test blood sugar TID (DME) lancets [FreeStyle Lancets] 28 gauge misc See Rx Instructions .Route Qty: 300 3RF Rx Instructions: Test blood sugar TID thiamine HCl (vitamin B1) 100 mg tablet 100 mg PO DAILY Qty: 90 3RF ascorbic acid (vitamin C) [Vitamin C] 500 mg tablet 500 mg PO DAILY Qty: 90 3RF metformin 500 mg tablet 1,000 mg PO BID Qty: 180 3RF diltiazem HCl 180 mg capsule,ext.rel 24h degradable 180 mg PO BID 90 Days Qty: 180 3RF dabigatran etexilate [Pradaxa] 150 mg capsule 150 mg PO BID 90 Days Qty: 180 3RF metoprolol tartrate 50 mg tablet 50 mg PO BID 90 Days Qty: 180 3RF zinc gluconate 50 mg tablet 50 mg PO DAILY Qty: 90 3RF Trulicity 1.5 mg/0.5 mL pen injector 1.5 mg subcut QWEEK Qty: 6 2RF folic acid 1 mg tablet 1 mg PO DAILY Qty: 90 3RF digoxin 125 mcg (0.125 mg) tablet 125 mcg PO DAILY Qty: 90 3RF naltrexone 50 mg Tablet 50 mg PO DAILY PRN (Reason: Withdrawal Symptoms) lorazepam 1 mg Tablet 1 mg BID PRN (Reason: Alcohol Withdrawal) atorvastatin 20 mg tablet 20 mg PO BEDTIME allopurinol 100 mg tablet 200 mg PO DAILY Farxiga 5 mg tablet 5 mg PO DAILY Qty: 90 1RF ketoconazole 2 % cream 1 appl topical DAILY Qty: 60 2RF multivitamin Tablet 1 tab PO DAILY duloxetine 60 mg capsule,delayed release(DR/EC) 60 mg PO DAILY bupropion HCl [Wellbutrin XL] 300 mg tablet extended release 24 hr 300 mg PO DAILY Discharge Orders: Discharge Order (Routine); Ordered 06/30/22 Ordered By: Estela Bragg Activity on Discharge: As tolerated Stand Alone Forms: Patient Portal Discharge page Care Plan Goals: resolution of infection Health Concerns: diabetic foot infection with cellulitis Plan of Treatment: complete course of antibiotics as prescribed keep follow up appointment with PCP as scheduled next week to ensure resolution of infection return if you develop fever or worsening redness, swelling Assessment: see discharge summary
[2022-06-30 11:34] LABS: Glucose, Whole Blood 118 mg/dL (60-115)
== END 2022-06-30 13:03 | disposition home or self-care (01) | DRG 638 ==
LOC: HO.ED 18:51 → HO.EDOVER 22:25 → HO.S3 22:28
PROVIDERS: Family Medicine; Physician Assistant; Admitting Provider Internal Medicine; Emergency Provider Emergency Medicine; PCP Internal Medicine; Visit Provider Physician Assistant Medical
DX: E11.621 Type 2 diabetes mellitus with foot ulcer (principal); I48.19 Other persistent atrial fibrillation; L03.115 Cellulitis of right lower limb; I25.10 Atherosclerotic heart disease of native coronary artery without angina pectoris; G47.33 Obstructive sleep apnea (adult) (pediatric); E11.40 Type 2 diabetes mellitus with diabetic neuropathy, unspecified; L97.511 Non-pressure chronic ulcer of other part of right foot limited to breakdown of skin; M10.9 Gout, unspecified; E11.628 Type 2 diabetes mellitus with other skin complications; F10.11 Alcohol abuse, in remission; F39 Unspecified mood [affective] disorder; E78.5 Hyperlipidemia, unspecified; L03.031 Cellulitis of right toe; Z20.822 Contact with and (suspected) exposure to COVID-19; Z89.512 Acquired absence of left leg below knee; Z88.2 Allergy status to sulfonamides; Z79.84 Long term (current) use of oral hypoglycemic drugs; Z79.899 Other long term (current) drug therapy
CPT/HCPCS: 36415; 73610; 73630; 73720; 80048; 80076; 81001; 82565; 82947; 83605; 83735; 85025; 85652; 86140; 87040; 87635; 93971; 99285; A9585; J0692; J2543

== ENCOUNTER 2022-07-05 07:37 | Outpatient (REF) | payer OTHER, SELFPAY | END 2022-07-05 07:38 | disposition home or self-care (01) | LOC: HO.MDS 07:37 | PROVIDERS: PCP Internal Medicine; Visit Provider Internal Medicine | DX: D80.1 Nonfamilial hypogammaglobulinemia (principal) | CPT/HCPCS: 96365; 96366; 96375; J1569 ==

== ENCOUNTER 2022-07-27 08:15 | Outpatient (REF) | payer OTHER, SELFPAY ==
[2022-07-27 09:31] LABS: Prostate Specific Antigen 2.08 ng/mL (<0.05-4.0)
[2022-07-28 08:59] LABS: Rubeola IgG (Measles) >300.00 AU/mL
[2022-07-28 12:58] LABS: Varicella IgG Antibody >4000.00 index
[2022-07-29 15:14] LABS: TS Negative Control Passed; TS Panel A 0; TS Panel B 0; TS Positive Control Passed; TSpotTB Negative (Negative)
== END 2022-07-27 08:16 | disposition home or self-care (01) ==
LOC: HO.LAB 08:15
PROVIDERS: Absent Provider Urology; PCP Internal Medicine; Visit Provider Internal Medicine
DX: R33.9 Retention of urine, unspecified (principal); Z78.9 Other specified health status; Z11.1 Encounter for screening for respiratory tuberculosis; Z12.5 Encounter for screening for malignant neoplasm of prostate
CPT/HCPCS: 36415; 84153; 86481; 86735; 86762; 86765; 86787

== ENCOUNTER → 2022-07-29 09:58 | Outpatient (BNVA) | payer OTHER, SELFPAY | PROVIDERS: PCP Internal Medicine; Visit Provider Urology | DX: N40.1 Benign prostatic hyperplasia with lower urinary tract symptoms (principal); R35.1 Nocturia; E11.69 Type 2 diabetes mellitus with other specified complication; N52.1 Erectile dysfunction due to diseases classified elsewhere | CPT/HCPCS: 51798; 99212 ==

== ENCOUNTER → 2022-08-24 12:17 | Outpatient (BNVA) | payer OTHER, SELFPAY | PROVIDERS: PCP Internal Medicine; Referring Provider Internal Medicine; Visit Provider Internal Medicine | DX: I48.19 Other persistent atrial fibrillation (principal); I48.3 Typical atrial flutter; I25.10 Atherosclerotic heart disease of native coronary artery without angina pectoris; E11.42 Type 2 diabetes mellitus with diabetic polyneuropathy; I95.1 Orthostatic hypotension; G47.33 Obstructive sleep apnea (adult) (pediatric); Z79.01 Long term (current) use of anticoagulants; Z79.899 Other long term (current) drug therapy | CPT/HCPCS: 93005; 99212 ==

== ENCOUNTER 2022-09-13 15:49 | Outpatient (REF) | payer OTHER, SELFPAY ==
[2022-09-16 04:54] LABS: IgA 72 mg/dL (70-320); IgG 516 mg/dL (600-1540); IgM 11 mg/dL (50-300)
== END 2022-09-13 15:50 | disposition home or self-care (01) ==
LOC: HO.LAB 15:49
PROVIDERS: PCP Internal Medicine; Visit Provider Internal Medicine
DX: C83.07 Small cell B-cell lymphoma, spleen (principal)
CPT/HCPCS: 36415; 82784

== ENCOUNTER 2022-10-07 12:45 | Outpatient (REF) | payer OTHER, SELFPAY ==
[2022-10-07 16:32] LABS: Estimated Average Glucose 120 mg/dL; Hemoglobin A1c % 5.8 %
[2022-10-07 17:02] LABS: Alanine Aminotransferase 24 U/L (0-40); Albumin Level 4.6 g/dL (3.5-5.0); Alkaline Phosphatase 127 U/L (39-117); Anion Gap 17 (12-20); Aspartate Amino Transferase 31 U/L (5-37); Bilirubin Total 0.6 mg/dL (0.0-1.0); Blood Urea Nitrogen 23 mg/dL (9-16); Carbon Dioxide 22 mmol/L (22-29); Chloride 109 mmol/L (96-108); Cholesterol 117 mg/dL; Estimated Glomerular Filt Rate > 60; Glucose Fasting 77 mg/dL (60-99); HDL Cholesterol 43 mg/dL; LDL Cholesterol Calculated 61 mg/dl; Potassium 4.2 mmol/L (3.3-5.1); Sodium 144 mmol/L (135-145); Total Protein 6.9 g/dL (6.5-8.0); Triglycerides 66 mg/dL
[2022-10-07 17:02] LABS: Creatinine Urine 132.58 mg/dL; Microalbum/Creatinine Ratio Ur 16.5 ug/mg cr
== END 2022-10-07 12:46 | disposition home or self-care (01) ==
LOC: HO.HMGCLDS 12:45
PROVIDERS: PCP Internal Medicine; Visit Provider Internal Medicine
DX: E11.42 Type 2 diabetes mellitus with diabetic polyneuropathy (principal); E78.5 Hyperlipidemia, unspecified; I10 Essential (primary) hypertension; I48.19 Other persistent atrial fibrillation
CPT/HCPCS: 36415; 80053; 80061; 82043; 83036

== ENCOUNTER 2022-10-10 06:44 | Outpatient (REF) | payer OTHER, SELFPAY | END 2022-10-10 06:45 | disposition home or self-care (01) | LOC: HO.MDS 06:44 | PROVIDERS: Visit Provider Internal Medicine | DX: D80.1 Nonfamilial hypogammaglobulinemia (principal) | CPT/HCPCS: 96365; 96366; 96375; J1569 ==

== ENCOUNTER 2022-10-12 12:04 | Outpatient (AMB) | payer OTHER, SELFPAY ==
[2022-10-12 12:28] VITALS: BP 126/72; PULSE 67; O2SAT 98; BMI 28.0
--- NOTE | 2022-10-12 12:28 | MHC.PC.OV ---
Vital Signs 10/12/22 12:28 Height 6 ft 2 in Weight 218 lb BMI 28.0 BP 126/72 Blood Pressure Location Lt brachial Position Sitting Pulse 67 Pulse Source Pulse Oximeter Pulse Oximetry (%) 98 Oxygen Delivery Method Room Air Intake Visit Reasons: 3 Month Follow Up Diabetes Intake Note: Pt is here today for 3 months follow up visit on DM. Allergies vancomycin [VANCOMYCIN] Allergy (Severe, Verified 10/12/22 12:31) ANGIOEDEMA Sulfa (Sulfonamide Antibiotics) Allergy (Intermediate, Verified 10/12/22 12:31) Rash sulfamethoxazole [From Bactrim] Allergy (Verified 10/12/22 12:31) rash trimethoprim [From Bactrim] Allergy (Verified 10/12/22 12:31) Rash Medication List - Last Reconciled 10/12/22 by Nikole Mauricio MD allopurinol 200 mg PO DAILY ascorbic acid (vitamin C) (Vitamin C) 500 mg PO DAILY atorvastatin 20 mg PO BEDTIME blood pressure test kit-medium As directed to monitor BP at home blood sugar diagnostic (FreeStyle Lite Strips) Test blood sugar TID blood-glucose meter (FreeStyle Lite Meter kit) As directed 3x/day bupropion HCl (Wellbutrin XL) 300 mg PO DAILY buspirone 7.5 mg PO DAILY dabigatran etexilate (Pradaxa) 150 mg PO BID 90 days dapagliflozin propanediol (Farxiga) 10 mg PO DAILY digoxin 125 mcg PO DAILY diltiazem HCl ER 180 mg PO DAILY 90 days dulaglutide (Trulicity) 3 mg (0.5 mL) subcut QWEEK duloxetine 60 mg PO DAILY flash glucose sensor (FreeStyle Erika 14 Day Sensor kit) As directed folic acid 1 mg PO DAILY hydroxyzine pamoate 25 mg PO DAILY PRN ketoconazole 2% 1 appl topical DAILY lancets (FreeStyle Lancets) Test blood sugar TID metformin 1,000 mg (2 x 500 mg) PO BID metoprolol tartrate 50 mg PO BID 90 days metronidazole 0.75% appl topical BEDTIME multivitamin 1 tab PO DAILY naltrexone 50 mg PO DAILY PRN thiamine HCl (vitamin B1) 100 mg PO DAILY zinc gluconate 50 mg PO DAILY Tobacco use date assessed: 10/12/22 Dental Screening Dental Screen Date: 10/12/22 Did you have a dental visit in the last 12 months?: Yes Did you have a dental problem in the last 6 months where you did not have access to dental care?: No Was dental information given to patient?: Patient has dentist HPI 3 Month Follow Up Diabetes HPI Details Pt presents for f/u DM 2, HTN, A fib, stable on meds. PATIENT HAS BEEN PHYSICALLY ACTIVE INVOLVED WITH MANY SPORTS SUMMER CAMPS. [facility] Medical History Adjustment disorder Annual physical exam Atherosclerotic cardiovascular disease BMI 30.0-30.9,adult BPH associated with nocturia CAD (coronary artery disease) Chronic osteomyelitis Depression Diabetic eye exam DM (diabetes mellitus) Essential hypertension ETOH abuse GERD (gastroesophageal reflux disease) Gout Hyperlipidemia LDL goal <100 Hypogammaglobulinemia Long-term current use of intravenous immunoglobulin (IVIG) Lymphoma Obesity due to excess calories Orthostatic hypotension EMIL (obstructive sleep apnea) PAF (paroxysmal atrial fibrillation) Persistent atrial fibrillation Rosacea Splenic marginal zone b-cell lymphoma Typical atrial flutter Surgical History History of bunionectomy History of cardiac cath History of colonoscopy History of esophagogastroduodenoscopy (EGD) Osteomyelitis Osteomyelitis Status post below-knee amputation of left lower extremity Family History Father Diabetes Mother Liver cancer Maternal Grandfather CVD (cardiovascular disease) Brother Myocardial infarction Social History Household Members: Spouse Housing: House Do you presently have visiting nurse or other home services: No Alcohol intake: former Year quit: 2019 Patient Tobacco Use Status: Never used Tobacco e-Cigarette/Vaping Use: Never Used service: No Current occupational status: employed 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 How often do you have a drink containing alcohol?: Never 3. How often do you have six or more drinks on one occasion?: Never Total Score: 0 TRAVON-7 AMB Questionnaire TRAVON-7 Date TRAVON - 7 assessed: 08/10/21 Source: Developed by Drs. Ike L. ShaheedDaniela ibrahim, Yonatan Gr and colleagues, with an educational rosa from [employer]. Review of Systems Const All systems reviewed & are unremarkable except as noted in HPI and below Reports no additional complaints Eyes Reports no additional complaints ENT Reports no additional complaints Card Reports no additional complaints Resp Reports no additional complaints GI Reports no additional complaints Reports no additional complaints Physical exam (Primary Care) Vital Signs: Last Vital Signs Pulse 67 10/12/22 12:28 BP 126/72 10/12/22 12:28 Pulse Ox 98 10/12/22 12:28 Oxygen Delivery Method Room Air 10/12/22 12:28 BMI result Body Mass Index 28.0 Tobacco/Smoking Status: Tobacco use Status Tobacco use date assessed 10/12/22 10/12/22 12:36 Patient Tobacco Use Status Never used Tobacco 10/12/22 12:36 e-Cigarette/Vaping Use Never Used 10/12/22 12:36 Thrive Assessment: Date of Thrive Assessment Date Thrive assessed 08/10/21 10/12/22 12:36 Const General: no acute distress HENMT Head: Yes normal to inspection Face and sinus: Yes normal facial exam Throat: Yes posterior oropharynx normal Neck Neck: Yes supple Resp Effort & Inspection: normal respiratory effort Auscultation: clear to auscultation bilaterally Cardio Rhythm: regular rhythm Heart sounds: S1 normal heart sound present and S2 normal heart sound present GI Inspection: Yes normal to inspection Palpation (GI): Soft to palpation Percussion: Yes normal to percussion Auscultation: normal bowel sounds Assessment and Plan Assessment & Plan (1) A-fib: Code(s): I48.91 - Unspecified atrial fibrillation Plan: Continue current medications and anticoagulation and follow-up with Cardiology (2) Type 2 diabetes mellitus with diabetic polyneuropathy: Code(s): E11.42 - Type 2 diabetes mellitus with diabetic polyneuropathy Qualifiers: Diabetes mellitus intermediate school teacher insulin use: without intermediate school teacher use Qualified Code(s): E11.42 - Type 2 diabetes mellitus with diabetic polyneuropathy Plan: A1c is 5.8, continue current medications, ADA diet follow-up in 6 months with a fasting labs before (3) Splenic marginal zone b-cell lymphoma: Comment: in remission f/u [facility] hematology Code(s): C83.07 - Small cell B-cell lymphoma, spleen Plan: Follow-up with Hematology (4) Hyperlipidemia LDL goal <100: Code(s): E78.5 - Hyperlipidemia, unspecified Plan: Continue statin Orders: Orders Comprehensive [place]. Panel Fast 6 Months E11.42 - Type 2 diabetes mellitus with diabetic polyneuropathy, E78.5 - Hyperlipidemia, unspecified, I48.91 - Unspecified atrial fibrillation Hemoglobin A1c 6 Months E11.42 - Type 2 diabetes mellitus with diabetic polyneuropathy, E78.5 - Hyperlipidemia, unspecified, I48.91 - Unspecified atrial fibrillation Lipid Panel 6 Months E11.42 - Type 2 diabetes mellitus with diabetic polyneuropathy, E78.5 - Hyperlipidemia, unspecified, I48.91 - Unspecified atrial fibrillation Microalbumin, Random (w Creat) 6 Months E11.42 - Type 2 diabetes mellitus with diabetic polyneuropathy, E78.5 - Hyperlipidemia, unspecified, I48.91 - Unspecified atrial fibrillation Complete Blood Count Auto Diff 6 Months E11.42 - Type 2 diabetes mellitus with diabetic polyneuropathy, E78.5 - Hyperlipidemia, unspecified, I48.91 - Unspecified atrial fibrillation Medications: Discontinued atorvastatin 20 mg PO DAILY 90 tabs 3RF Coding Level of Care Code Est Pt Level 4 (52410) Diagnoses A-fib I48.91 Type 2 diabetes mellitus with diabetic polyneuropathy E11.42 Diabetes mellitus intermediate school teacher insulin use: without intermediate school teacher use Splenic marginal zone b-cell lymphoma C83.07 Hyperlipidemia LDL goal <100 E78.5
== END 2022-10-12 13:32 | disposition home or self-care (01) ==
PROVIDERS: Visit Provider Internal Medicine
DX: I48.91 Unspecified atrial fibrillation (principal); E11.42 Type 2 diabetes mellitus with diabetic polyneuropathy; C83.07 Small cell B-cell lymphoma, spleen; E78.5 Hyperlipidemia, unspecified
CPT/HCPCS: 99214

== ENCOUNTER 2022-11-24 08:46 | Outpatient (REF) | payer OTHER, SELFPAY ==
--- NOTE | ~2022-11-24 | US_ITS ---
EXAMINATION: US ABDOMEN COMPLETE CLINICAL INFORMATION: B cell lymphoma. COMPARISON: CT abdomen/pelvis 06/27/2018. TECHNIQUE: Real-time imaging of the abdominal viscera. FINDINGS: PANCREAS: The pancreatic tail is obscured by overlying bowel gas. The visualized portions of the pancreas are within normal limits. ABDOMINAL AORTA: The proximal, mid, and distal segments are normal in caliber. Atherosclerotic disease. INFERIOR VENA CAVA: Visualized portions are normal. LIVER: Normal. The liver is normal in size. The liver contour is normal. Parenchymal echogenicity is normal. No focal hepatic lesion. There is no intrahepatic biliary duct dilatation seen. GALLBLADDER: Normal. The gallbladder is physiologically distended without evidence of stones, sludge, polyps, wall thickening or pericholecystic fluid. COMMON BILE DUCT: Normal in caliber measuring 0.3 cm in diameter. RIGHT KIDNEY: Normal. No hydronephrosis. No renal calculi or focal parenchymal lesions. The kidney measures 12.4 cm in maximum dimension. LEFT KIDNEY: Nonspecific focal cortical deformity/scarring in the upper pole. There is a 4 x 3.8 x 4.3 cm cyst in the upper pole with a single thin internal septation, this is grossly unchanged in size compared to CT from 06/27/2018, for which no imaging follow-up is recommended. No hydronephrosis or renal calculi. The kidney measures 11.8 cm in maximum dimension. SPLEEN: Splenectomy. FREE FLUID: None. US/US abdomen complete IMPRESSION: 1. Splenectomy. 2. A 4.3 cm cyst in the upper pole of the left kidney with a single thin internal septation is unchanged in size compared to 06/27/2018, for which no imaging follow-up is recommended. 3. Nonspecific cortical thinning/distortion in the upper pole of the left kidney, possibly sequela of an infectious/inflammatory process. Out of precaution, a follow-up ultrasound in 6-12 months is recommended.
== END 2022-11-24 08:47 | disposition home or self-care (01) ==
LOC: HO.HMGCX 08:46
PROVIDERS: PCP Internal Medicine; Visit Provider Internal Medicine
DX: C83.07 Small cell B-cell lymphoma, spleen (principal)
CPT/HCPCS: 76700

== ENCOUNTER 2022-12-06 07:02 | Outpatient (REF) | payer OTHER, SELFPAY | END 2022-12-06 07:03 | disposition home or self-care (01) | LOC: HO.MDS 07:02 | PROVIDERS: Visit Provider Internal Medicine | DX: D80.1 Nonfamilial hypogammaglobulinemia (principal) | CPT/HCPCS: 96365; 96366; 96375; J1569 ==

== ENCOUNTER 2023-01-13 09:34 | Outpatient (AMB) | payer OTHER, SELFPAY ==
--- NOTE | 2023-01-13 09:37 | A.OFFPC_ITS ---
Vital Signs 01/13/23 09:38 Height 6 ft 2 in Weight 215 lb BMI 27.6 BP 122/74 Blood Pressure Location Rt brachial Position Sitting Pulse 72 Pulse Source Pulse Oximeter Pulse Oximetry (%) 100 Oxygen Delivery Method Room Air Intake Visit Reasons: HD [facility] 12/20/22-Alcohol Abuse Intake Note: Pt is here today for a Hospital follow up visit. Pt would like to ask Dr Mauricio about a script for new diabetic shoes. Allergies vancomycin [VANCOMYCIN] Allergy (Severe, Verified 01/13/23 09:40) ANGIOEDEMA Sulfa (Sulfonamide Antibiotics) Allergy (Intermediate, Verified 01/13/23 09:40) Rash sulfamethoxazole [From Bactrim] Allergy (Verified 01/13/23 09:40) rash trimethoprim [From Bactrim] Allergy (Verified 01/13/23 09:40) Rash Medication List - Last Reconciled 01/13/23 by Nikole Mauricio MD allopurinol 200 mg PO DAILY ascorbic acid (vitamin C) (Vitamin C) 500 mg PO DAILY atorvastatin 20 mg PO BEDTIME blood pressure test kit-medium As directed to monitor BP at home blood sugar diagnostic (FreeStyle Lite Strips) Test blood sugar TID blood-glucose meter (FreeStyle Lite Meter kit) As directed 3x/day bupropion HCl (Wellbutrin XL) 300 mg PO DAILY buspirone 7.5 mg PO DAILY dabigatran etexilate (Pradaxa) 150 mg PO BID 90 days dapagliflozin propanediol (Farxiga) 10 mg PO DAILY digoxin 125 mcg PO DAILY diltiazem HCl ER 180 mg PO DAILY 90 days dulaglutide (Trulicity) 3 mg (0.5 mL) subcut QWEEK duloxetine 60 mg PO DAILY flash glucose sensor (FreeStyle Erika 14 Day Sensor kit) As directed folic acid 1 mg PO DAILY hydroxyzine HCl 25 mg PO DAILY hydroxyzine pamoate 25 mg PO DAILY PRN ketoconazole 2% 1 appl topical DAILY lancets (FreeStyle Lancets) Test blood sugar TID metformin 1,000 mg (2 x 500 mg) PO BID metoprolol tartrate 50 mg PO BID 90 days metronidazole 0.75% 1 appl topical BEDTIME multivitamin 1 tab PO DAILY naltrexone 50 mg PO DAILY PRN thiamine HCl (vitamin B1) 100 mg PO DAILY zinc gluconate 50 mg PO DAILY Tobacco use date assessed: 01/13/23 HPI HD [facility] 12/20/22-Alcohol Abuse HPI Details Pt presents for f/u ER visit for ETOH withdrawal and rapid A fib, signed out AMA. Patient is established with counselor psychiatric nurse practitioner prescriber, JUAN PUGA. Patient has been under lot of stress going through a divorce. He denies suicidal ideation. Patient has been compliant taking his medications. [facility] Medical History Adjustment disorder Annual physical exam Atherosclerotic cardiovascular disease BMI 30.0-30.9,adult BPH associated with nocturia CAD (coronary artery disease) Chronic osteomyelitis Depression Diabetic eye exam DM (diabetes mellitus) Essential hypertension ETOH abuse GERD (gastroesophageal reflux disease) Gout Hyperlipidemia LDL goal <100 Hypogammaglobulinemia Long-term current use of intravenous immunoglobulin (IVIG) Lymphoma Obesity due to excess calories Orthostatic hypotension EMIL (obstructive sleep apnea) PAF (paroxysmal atrial fibrillation) Persistent atrial fibrillation Rosacea Splenic marginal zone b-cell lymphoma Typical atrial flutter Surgical History History of bunionectomy History of cardiac cath History of colonoscopy History of esophagogastroduodenoscopy (EGD) Osteomyelitis Osteomyelitis Status post below-knee amputation of left lower extremity Family History Father Diabetes Mother Liver cancer Maternal Grandfather CVD (cardiovascular disease) Brother Myocardial infarction Social History Household Members: Spouse Housing: House Do you presently have visiting nurse or other home services: No Alcohol intake: former Year quit: 2019 Patient Tobacco Use Status: Never used Tobacco e-Cigarette/Vaping Use: Never Used service: No Current occupational status: employed 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 1. Little interest or pleasure in doing things: several days 2. Feeling down, depressed, or hopeless: several days 3. Trouble falling or staying asleep, or sleeping too much: several days 4. Feeling tired or having little energy: not at all 5. Poor appetite or overeating: not at all 6. Feeling bad about yourself - or that you are a failure or have let yourself or your family down: more than half the days 7. Trouble concentrating on things, such as reading the newspaper or watching television: more than half the days 8. Moving or speaking so slowly that other people could have noticed. Or the opposite - being so fidgety or restless that you have been moving around a lot more than usual: more than half the days 9. Thoughts that you would be better off or of hurting yourself in some way: several days Total score: 10 Depression Screening Interpretation: Positive Depression Screening Done: Yes Source: Developed by Drs. Ike Hummel, Daniela Alejandro, Yonatan Gr and colleagues, with an educational rosa from [employer]. Thrive Questionnaire Date Thrive assessed: 01/13/23 I am a: Patient What is your living situation today?: I have a place to live, but I am worried about losing it in the future Within the past 12 months, did the food you bought not last and you didn't have the money to get more?: Never true Within the past 12 months, did you worry whether your food would run out before you got money to buy more?: Never true Do you have trouble paying for medicines?: No Do you have trouble getting transportation to medical appointments?: No Do you have trouble paying your heating and electricity bill?: No Do you have trouble taking care of your child, family member or friend?: No Do you have trouble with day-to-day activities such as bathing, preparing meals, shopping, managing finances, etc.?: Yes Are you currently unemployed and looking for a job?: No Are you interested in more education?: No Please select the resources that you would like help with: Housing/Assisted and Food TRAVON-7 AMB Questionnaire TRAVON-7 Date TRAVON - 7 assessed: 01/13/23 Feeling nervous, anxious, or on edge: 1 = Several days Not being able to stop or control worryin = Several days Worrying too much about different things: 1 = Several days Trouble relaxin = Several days Being so restless that it is hard to sit still: 1 = Several days Becoming easily annoyed or irritable: 1 = Several days Feeling afraid as if something awful might happen: 1 = Several days Total TRAVON-7 score (0-4 normal; 5-9 mild; 10-14 moderate; 15-21 severe): 7 Source: Developed by Drs. Ike Hummel, Daniela Alejandro, Yonatan Gr and colleagues, with an educational rosa from [employer]. Review of Systems Const All systems reviewed & are unremarkable except as noted in HPI and below Reports no additional complaints Eyes Reports no additional complaints ENT Reports no additional complaints Card Reports no additional complaints Resp Reports no additional complaints GI Reports no additional complaints Reports no additional complaints Physical exam (Primary Care) Vital Signs: Last Vital Signs Pulse 72 01/13/23 09:38 BP 122/74 01/13/23 09:38 Pulse Ox 100 01/13/23 09:38 Oxygen Delivery Method Room Air 01/13/23 09:38 BMI result Body Mass Index 27.6 Tobacco/Smoking Status: Tobacco use Status Tobacco use date assessed 01/13/23 01/13/23 09:43 Patient Tobacco Use Status Never used Tobacco 01/13/23 09:37 e-Cigarette/Vaping Use Never Used 01/13/23 09:37 PHQ-9: PHQ-9 Score PHQ-9: Total score 10 01/13/23 10:04 Depression Screening Interpretation: Positive Thrive Assessment: Date of Thrive Assessment Date Thrive assessed 01/13/23 01/13/23 10:04 Const General: no acute distress HENMT General nose exam: Normal external nose present Neck Neck: Yes supple Resp Effort & Inspection: normal respiratory effort Auscultation: clear to auscultation bilaterally Cardio Rhythm: regular rhythm Heart sounds: S1 normal heart sound present and S2 normal heart sound present GI Inspection: Yes normal to inspection Assessment and Plan Assessment & Plan (1) Right second toe ulcer: Code(s): L97.519 - Non-pressure chronic ulcer of other part of right foot with unspecified severity Qualifiers: Non-pressure ulcer stage: limited to breakdown of skin Qualified Code(s): L97.511 - Non-pressure chronic ulcer of other part of right foot limited to breakdown of skin Plan: Refill for diabetic shoes will be sent to the pharmacy (2) Status post below-knee amputation of left lower extremity: Comment: FOR OSTEOMYELITIS 12/2017 Code(s): Z89.512 - Acquired absence of left leg below knee (3) DM (diabetes mellitus): Code(s): E11.9 - Type 2 diabetes mellitus without complications Plan: Continue current medications (4) Persistent atrial fibrillation: Code(s): I48.19 - Other persistent atrial fibrillation Plan: Continue current medications anticoagulation follow-up with Cardiology (5) ETOH abuse: Code(s): F10.10 - Alcohol abuse, uncomplicated Plan: Follow-up with [facility] Medications: New miscellaneous medical supply DIABETIC SHOES as directed QD; 1 ea 2RF E11.9 - Type 2 diabetes mellitus without complications, L97.519 - Non-pressure chronic ulcer of other part of right foot with unspecified severity, Z89.512 - Acquired absence of left leg below knee Coding Level of Care Code Est Pt Level 4 (28834) Diagnoses Skin ulcer of second toe of right foot, limited to breakdown of skin L97.511 Non-pressure ulcer stage: limited to breakdown of skin Status post below-knee amputation of left lower extremity Z89.512 DM (diabetes mellitus) E11.9 Persistent atrial fibrillation I48.19 ETOH abuse F10.10
[2023-01-13 09:38] VITALS: BP 122/74; PULSE 72; O2SAT 100; BMI 27.6
== END 2023-01-13 10:18 | disposition home or self-care (01) ==
PROVIDERS: PCP Internal Medicine; Visit Provider Internal Medicine
DX: E11.621 Type 2 diabetes mellitus with foot ulcer (principal); L97.511 Non-pressure chronic ulcer of other part of right foot limited to breakdown of skin; Z89.512 Acquired absence of left leg below knee; I48.19 Other persistent atrial fibrillation; F10.10 Alcohol abuse, uncomplicated
CPT/HCPCS: 99214

== ENCOUNTER 2023-01-31 06:45 | Outpatient (REF) | payer OTHER, SELFPAY | END 2023-01-31 06:46 | disposition home or self-care (01) | LOC: HO.MDS 06:45 | PROVIDERS: Visit Provider Internal Medicine | DX: D80.1 Nonfamilial hypogammaglobulinemia (principal) | CPT/HCPCS: 96365; 96366; 96375; J1569 ==

== ENCOUNTER 2023-03-29 06:56 | Outpatient (REF) | payer OTHER, SELFPAY | END 2023-03-29 06:57 | disposition home or self-care (01) | LOC: HO.MDS 06:56 | PROVIDERS: Visit Provider Internal Medicine | DX: D80.1 Nonfamilial hypogammaglobulinemia (principal) | CPT/HCPCS: 96365; 96366; 96375; J1569; J1720 ==

== ENCOUNTER 2023-04-17 10:38 | Outpatient (REF) | payer OTHER, SELFPAY ==
[2023-04-17 13:05] LABS: MANUAL DIFF FLAG NO
[2023-04-17 13:20] LABS: Basophils Absolute Auto 0.1 X10*3/uL (0.0-0.2); Basophils Percent Auto 0.9 % (0-2); Eosinophils Absolute Auto 0.3 X10*3/uL (0.0-0.4); Eosinophils Percent Auto 2.8 % (0-4); Hematocrit 41.7 % (42.0-52.0); Hemoglobin 14.1 g/dl (14.0-18.0); Imm Gran Abs Auto 0.03 X10*3/uL (0.00-0.03); Imm Gran Pct Auto 0.3 % (0.0-0.4); Lymphocytes Absolute Auto 1.4 X10*3/uL (1.2-4.9); Lymphocytes Percent Auto 15.1 % (20-40); Mean Corpuscular HGB Conc 33.8 g/dl (31.0-36.0); Mean Corpuscular Hemoglobin 32.2 pg (27.0-33.0); Mean Corpuscular Volume 95.2 fL (80.0-98.0); Mean Platelet Volume 11.6 fL (9.4-12.4); Monocytes Absolute Auto 0.8 X10*3/uL (0.1-1.2); Monocytes Percent Auto 8.9 % (2-11); NRBC Pct Auto 0.2 /100WBC (0.0-0.2); Neutrophils Absolute Auto 6.6 x10*3/uL (2.0-8.3); Platelet Count 238 X10*3/uL (160-400); Red Blood Count 4.38 X10*6/uL (4.60-5.80); Red Cell Distribution Width 14.4 % (11.0-16.0); White Blood Count 9.2 X10*3/uL (4.8-10.8)
[2023-04-17 13:28] LABS: Estimated Average Glucose 126 mg/dL
[2023-04-17 14:25] LABS: Alanine Aminotransferase 48 U/L (0-40); Albumin Level 4.1 g/dL (3.5-5.0); Alkaline Phosphatase 152 U/L (39-117); Anion Gap 14 (12-20); Aspartate Amino Transferase 45 U/L (5-37); Bilirubin Total 0.9 mg/dL (0.0-1.0); Blood Urea Nitrogen 18 mg/dL (9-16); Calcium 9.4 mg/dL (8.4-10.2); Carbon Dioxide 27 mmol/L (22-29); Chloride 104 mmol/L (96-108); Cholesterol 129 mg/dL (<200); Estimated Glomerular Filt Rate > 60; Glucose Fasting 116 mg/dL (60-99); HDL Cholesterol 44 mg/dL (>40); LDL Cholesterol Calculated 71 mg/dL (<100); Potassium 4.2 mmol/L (3.3-5.1); Sodium 141 mmol/L (135-145); Triglycerides 74 mg/dL (<150)
[2023-04-17 15:39] LABS: Creatinine Urine 109.97 mg/dL; Microalbum/Creatinine Ratio Ur 27.2 ug/mg cr (<30)
== END 2023-04-17 10:39 | disposition home or self-care (01) ==
LOC: HO.HMGCLDS 10:38
PROVIDERS: PCP Internal Medicine; Visit Provider Internal Medicine
DX: I48.91 Unspecified atrial fibrillation (principal); E11.42 Type 2 diabetes mellitus with diabetic polyneuropathy; E78.5 Hyperlipidemia, unspecified
CPT/HCPCS: 36415; 80053; 80061; 82043; 82570; 83036; 85025

== ENCOUNTER 2023-04-24 13:05 | Outpatient (AMB) | payer OTHER, SELFPAY ==
--- NOTE | 2023-04-24 13:17 | MHC.PC.OV ---
Vital Signs 04/24/23 13:23 Height 6 ft 2 in Weight 218 lb BMI 28.0 BP 142/80 H Blood Pressure Location Rt brachial Position Sitting Pulse 72 Pulse Source Pulse Oximeter Pulse Oximetry (%) 98 Oxygen Delivery Method Room Air Intake Visit Reasons: foot wound Intake Note: Pt is here today for a sick visit. Pt c/o wound on his L foot and toe pain and swelling. Allergies vancomycin [VANCOMYCIN] Allergy (Severe, Verified 04/24/23 13:27) ANGIOEDEMA Sulfa (Sulfonamide Antibiotics) Allergy (Intermediate, Verified 04/24/23 13:27) Rash sulfamethoxazole [From Bactrim] Allergy (Verified 04/24/23 13:27) rash trimethoprim [From Bactrim] Allergy (Verified 04/24/23 13:27) Rash Medication List - Last Reconciled 04/24/23 by Nikole Mauricio MD allopurinol 200 mg PO DAILY ascorbic acid (vitamin C) (Vitamin C) 500 mg PO DAILY atorvastatin 20 mg PO BEDTIME blood pressure test kit-medium As directed to monitor BP at home blood sugar diagnostic (FreeStyle Lite Strips) Test blood sugar TID blood-glucose meter (FreeStyle Lite Meter kit) As directed 3x/day bupropion HCl (Wellbutrin XL) 300 mg PO DAILY buspirone 7.5 mg PO BID dabigatran etexilate (Pradaxa) 150 mg PO BID 90 days dapagliflozin propanediol (Farxiga) 10 mg PO DAILY digoxin 125 mcg PO DAILY diltiazem HCl ER 180 mg PO DAILY 90 days dulaglutide (Trulicity) 3 mg (0.5 mL) subcut QWEEK duloxetine 60 mg PO DAILY flash glucose sensor (FreeStyle Erika 14 Day Sensor kit) As directed folic acid 1 mg PO DAILY hydroxyzine HCl 25 mg PO DAILY ketoconazole 2% 1 appl topical DAILY lancets (FreeStyle Lancets) Test blood sugar TID metformin 1,000 mg (2 x 500 mg) PO BID metoprolol tartrate 50 mg PO BID 90 days metronidazole 0.75% 1 appl topical BEDTIME miscellaneous medical supply DIABETIC SHOES as directed QD; multivitamin 1 tab PO DAILY naltrexone 50 mg PO DAILY PRN thiamine HCl (vitamin B1) 100 mg PO DAILY zinc gluconate 50 mg PO DAILY Tobacco use date assessed: 04/24/23 Fall risk assessment: 2 + Falls in past year Last assessed Fall Risk: 04/24/23 Dental Screening Dental Screen Date: 04/24/23 Did you have a dental visit in the last 12 months?: Yes Did you have a dental problem in the last 6 months where you did not have access to dental care?: No Was dental information given to patient?: Patient has dentist HPI foot wound HPI Details PATIENT PRESENTS FOR THE FOLLOW-UP OF TYPE 2 DIABETES PAROXYSMAL AFIB HYPERLIPIDEMIA CHRONIC DEPRESSION AND ANXIETY AND ALCOHOL DEPENDENCE. He complains of a sore on the dorsum of the right foot for 3 weeks after he hit his foot against the chest. [facility] Medical History Adjustment disorder Annual physical exam Atherosclerotic cardiovascular disease BMI 30.0-30.9,adult BPH associated with nocturia CAD (coronary artery disease) Chronic osteomyelitis Depression Diabetic eye exam DM (diabetes mellitus) Essential hypertension ETOH abuse GERD (gastroesophageal reflux disease) Gout Hyperlipidemia LDL goal <100 Hypogammaglobulinemia Long-term current use of intravenous immunoglobulin (IVIG) Lymphoma Obesity due to excess calories Orthostatic hypotension EMIL (obstructive sleep apnea) PAF (paroxysmal atrial fibrillation) Persistent atrial fibrillation Rosacea Splenic marginal zone b-cell lymphoma Typical atrial flutter Surgical History History of bunionectomy History of cardiac cath History of colonoscopy History of esophagogastroduodenoscopy (EGD) Osteomyelitis Osteomyelitis Status post below-knee amputation of left lower extremity Family History Father Diabetes Mother Liver cancer Maternal Grandfather CVD (cardiovascular disease) Brother Myocardial infarction Social History Household Members: Spouse Housing: House Do you presently have visiting nurse or other home services: No Alcohol intake: former Year quit: 2019 Patient Tobacco Use Status: Never used Tobacco e-Cigarette/Vaping Use: Never Used service: No Current occupational status: employed 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 How often do you have a drink containing alcohol?: Never 3. How often do you have six or more drinks on one occasion?: Never Total Score: 0 TRAVON-7 AMB Questionnaire TRAVON-7 Date TRAVON - 7 assessed: 01/13/23 Source: Developed by Drs. Ike Hummel, Daniela Alejandro, Yonatan Gr and colleagues, with an educational rosa from [employer]. Review of Systems Const All systems reviewed & are unremarkable except as noted in HPI and below Reports no additional complaints Eyes Reports no additional complaints ENT Reports no additional complaints Card Reports no additional complaints Resp Reports no additional complaints GI Reports no additional complaints Reports no additional complaints Physical exam (Primary Care) Vital Signs: Last Vital Signs Pulse 72 04/24/23 13:23 BP 142/80 H 04/24/23 13:23 Pulse Ox 98 04/24/23 13:23 Oxygen Delivery Method Room Air 04/24/23 13:23 BMI result Body Mass Index 28.0 Tobacco/Smoking Status: Tobacco use Status Tobacco use date assessed 04/24/23 04/24/23 13:28 Patient Tobacco Use Status Never used Tobacco 04/24/23 13:28 e-Cigarette/Vaping Use Never Used 04/24/23 13:17 Thrive Assessment: Date of Thrive Assessment Date Thrive assessed 01/13/23 04/24/23 13:17 Const General: no acute distress HENMT Face and sinus: Yes normal facial exam Neck Neck: Yes supple Resp Effort & Inspection: normal respiratory effort Auscultation: clear to auscultation bilaterally Cardio Rhythm: regular rhythm Heart sounds: S1 normal heart sound present and S2 normal heart sound present GI Inspection: Yes normal to inspection Palpation (GI): Soft to palpation Percussion: Yes normal to percussion Auscultation: normal bowel sounds Extrem Other: Dorsum of right foot 1 cm scab no tenderness erythema warmth Assessment and Plan Assessment & Plan (1) Diabetic foot ulcer: Code(s): E11.621 - Type 2 diabetes mellitus with foot ulcer; L97.509 - Non-pressure chronic ulcer of other part of unspecified foot with unspecified severity Plan: Local care applying antibacterial ointment discussed with the patient. Referred to rougher for cement and arterial Doppler of right lower extremity will be obtained to evaluate for peripheral vascular disease (2) PVD (peripheral vascular disease): Code(s): I73.9 - Peripheral vascular disease, unspecified (3) A-fib: Code(s): I48.91 - Unspecified atrial fibrillation Plan: Controlled on digoxin, calcium channel lashell beta lashell and anticoagulated on Pradaxa. Follow-up with the Cardiology (4) Type 2 diabetes mellitus with diabetic polyneuropathy: Code(s): E11.42 - Type 2 diabetes mellitus with diabetic polyneuropathy Qualifiers: Diabetes mellitus supervisor intermediates insulin use: without supervisor intermediates use Qualified Code(s): E11.42 - Type 2 diabetes mellitus with diabetic polyneuropathy Plan: A1c is 6.0, ADA diet increase physical activity discussed with the patient continue current medications (5) Essential hypertension: Code(s): I10 - Essential (primary) hypertension Plan: Blood pressure is elevated today and lisinopril 5 mg will be added to current medications. Comprehensive panel will be checked in 2 weeks and patient will follow-up in 2 months. Orders: Orders Comprehensive Met. Panel 3 Weeks E11.621 - Type 2 diabetes mellitus with foot ulcer, I10 - Essential (primary) hypertension, I48.19 - Other persistent atrial fibrillation, L97.509 - Non-pressure chronic ulcer of other part of unspecified foot with unspecified severity US arterial duplex LE RT Today I73.9 - Peripheral vascular disease, unspecified Referrals Podiatry Referral E11.621 - Type 2 diabetes mellitus with foot ulcer, L97.509 - Non-pressure chronic ulcer of other part of unspecified foot with unspecified severity Medications: New lisinopril 5 mg PO DAILY 90 tabs 2RF Coding Level of Care Code Est Pt Level 4 (55902) Diagnoses Diabetic foot ulcer E11.621; L97.509 PVD (peripheral vascular disease) I73.9 A-fib I48.91 Type 2 diabetes mellitus with diabetic polyneuropathy, without long-term current use of insulin E11.42 Diabetes mellitus skilled nursing insulin use: without skilled nursing use Essential hypertension I10
[2023-04-24 13:23] VITALS: BP 142/80; PULSE 72; O2SAT 98; BMI 28.0
== END 2023-04-24 14:01 | disposition home or self-care (01) ==
PROVIDERS: PCP Internal Medicine; Visit Provider Internal Medicine
DX: E11.621 Type 2 diabetes mellitus with foot ulcer (principal); L97.509 Non-pressure chronic ulcer of other part of unspecified foot with unspecified severity; I73.9 Peripheral vascular disease, unspecified; I48.91 Unspecified atrial fibrillation; E11.42 Type 2 diabetes mellitus with diabetic polyneuropathy; I10 Essential (primary) hypertension
CPT/HCPCS: 99214

== ENCOUNTER 2023-05-04 07:59 | Outpatient (RCR) | payer OTHER, SELFPAY | END 2023-12-28 16:59 | disposition home or self-care (01) | LOC: HO.WCC 07:59 | PROVIDERS: PCP Internal Medicine; Visit Provider Surgery | DX: E11.621 Type 2 diabetes mellitus with foot ulcer (principal); L97.511 Non-pressure chronic ulcer of other part of right foot limited to breakdown of skin; L97.812 Non-pressure chronic ulcer of other part of right lower leg with fat layer exposed; L89.893 Pressure ulcer of other site, stage 3; T87.89 Other complications of amputation stump; E11.40 Type 2 diabetes mellitus with diabetic neuropathy, unspecified; Z89.512 Acquired absence of left leg below knee; Z85.72 Personal history of non-Hodgkin lymphomas | CPT/HCPCS: 11042; 11043; 15271; 15275; 97597; 99212; 99213; Q4186 ==

== ENCOUNTER 2023-05-16 13:09 | Outpatient (REF) | payer OTHER, SELFPAY ==
--- NOTE | ~2023-05-16 | US_ITS ---
EXAMINATION: US arterial duplex LE RT CLINICAL INFORMATION: Peripheral vascular disease, unspecified COMPARISON: None TECHNIQUE: Duplex Doppler techniques with wave form analysis and measurement of velocities in the Right common femoral, profunda femoral, superficial femoral, popliteal, tibial and peroneal arteries. FINDINGS: RIGHT LEG: Common femoral artery: 83.9 cm/s, Multiphasic Profunda femoris artery: 87 cm/s, biphasic Superficial femoral artery (proximal): 75.3 cm/s, monophasic Superficial femoral artery (mid): 56.2 cm/s, monophasic Superficial femoral artery (distal): 119 cm/s, monophasic Popliteal artery: 173 cm/s, monophasic Posterior tibial artery: 36.1 cm/s, monophasic Peroneal artery: 39.8 cm/s, monophasic Anterior tibial artery: 32.9 cm/sec, monophasic US/US arterial duplex LE RT IMPRESSION: 1. Elevated velocity in the right popliteal artery suggesting a mild stenosis. 2. Monophasic waveforms throughout the right lower extremity suggesting diffuse disease.
== END 2023-05-16 13:10 | disposition home or self-care (01) ==
LOC: HO.US 13:09
PROVIDERS: PCP Internal Medicine; Visit Provider Internal Medicine
DX: I73.9 Peripheral vascular disease, unspecified (principal)
CPT/HCPCS: 93926

== ENCOUNTER 2023-06-01 09:35 | Emergency (ER) | payer OTHER, SELFPAY ==
--- NOTE | ~2023-06-01 | CT_ITS ---
EXAMINATION: CT CHEST WITHOUT CONTRAST CLINICAL INFORMATION: Abnormal prior radiographs. COMPARISON: Chest radiographs 06/01/2023 TECHNIQUE: Multidetector volumetric CT imaging of the chest was done. Axial MIP volume rendering provided. Sagittal and coronal reformatted images were obtained. This CT examination was performed using dose optimization techniques as appropriate, variously including the following: *Automated exposure control *Adjustment of mA and/or kV according to patient size (this includes techniques or standardized protocols for targeted exams where dose is matched to indication/reason for exam; i.e. extremities or head) *Use of iterative reconstruction technique DLP: 733 mGy-cm FINDINGS: LUNGS: Mild diffuse bronchiectasis. Bronchial wall thickening and peribronchial consolidation in the right middle lobe. There are tree-in-bud opacities in the right lower lobe and lingula. Central airways are patent. MEDIASTINUM: Right cardiophrenic lymph node measures 1.1 x 1.6 cm. No axillary, hilar or mediastinal lymphadenopathy. Great vessels are of normal caliber No pericardial effusion. CORONARY ARTERY CALCIFICATION: Marked. PLEURA: No pleural effusion. CHEST WALL: Gynecomastia. UPPER ABDOMEN: Small hiatal hernia. Multiple surgical clips in the left upper quadrant. Status post splenectomy. OSSEOUS STRUCTURES: Comminuted fracture of the breast proximal humerus with dislocation of the humeral head and overlap of fracture fragments. There is probable fracture of the scapula. There is marked infiltration of the rotator cuff musculature with possible intramuscular hematoma. CT/CT chest wo IV con IMPRESSION: Diffuse bronchiectasis/bronchial wall thickening. Multifocal tree-in-bud opacities and peribronchiolar consolidation right middle lobe. Findings may represent mycobacterial infection. Comminuted fracture of the left proximal humerus with dislocation of the humeral head and overlap of fracture fragments. There is probable fracture of the scapula. There is marked infiltration of the rotator cuff musculature with possible intramuscular.
--- NOTE | ~2023-06-01 | CT_ITS ---
EXAMINATION: CT CERVICAL SPINE WITHOUT CONTRAST CLINICAL INFORMATION: Head and neck injury intoxicated patient COMPARISON: None available. TECHNIQUE: A spiral CT scan of the cervical spine was obtained without administration of IV contrast. Contiguous transverse, coronal and sagittal bone algorithm images were reconstructed at 2-mm increments This CT examination was performed using dose optimization techniques as appropriate, variously including the following: *Automated exposure control *Adjustment of mA and/or kV according to patient size (this includes techniques or standardized protocols for targeted exams where dose is matched to indication/reason for exam; i.e. extremities or head) *Use of iterative reconstruction technique DLP: 566 mGy-cm FINDINGS: The cervical alignment is normal. The craniocervical junction is normal. The vertebral body heights are maintained. No cervical spine fracture is seen. There are multilevel degenerative changes with straightening of cervical lordosis and narrowing cough C5-C6 intervertebral disc space with marginal spurring with foraminal narrowing due to osteophytosis. Soft tissues unremarkable and there is no spinal canal stenosis seen. The paraspinal soft tissues are within normal limits. Thyroid gland is unremarkable and there is no lymphadenopathy. The partially imaged lung apices are clear. CT/CT cervical spine wo IV con IMPRESSION: CT cervical spine: No cervical spine fracture or traumatic malalignment identified. Degenerative changes with loss of cervical lordosis and mild foraminal narrowing bilaterally at the level of C5-C6 Fleischner guidelines were followed.
--- NOTE | ~2023-06-01 | XR_ITS ---
EXAMINATION: XR CHEST XR LEFT SHOULDER CLINICAL INFORMATION: Left-sided pain after fall. COMPARISON: 08/09/2018 and 06/15/2018 TECHNIQUE: Frontal view of the chest was obtained. AP internal rotation and transscapular Y views of the left shoulder were obtained. FINDINGS: Chest: The lungs are moderately expanded. There is airspace disease at the right lung base. There is a nodular density projecting over the left lung base measuring 1.9 cm. No pleural effusion. Cardiac silhouette is unchanged. Dedicated chest CT is recommended. Left shoulder: There are comminuted fractures involving the proximal humerus and glenoid. There is dislocation of the humeral head. The humeral shaft is superiorly subluxed. Marked surrounding soft tissue swelling. Acromioclavicular joint is intact. XR/XR shoulder LT min 2V IMPRESSION: As above.
--- NOTE | ~2023-06-01 | CT_ITS ---
EXAMINATION: CT HEAD WITHOUT CONTRAST CLINICAL INFORMATION: Trauma head injury and intoxication COMPARISON: None available. TECHNIQUE: Contiguous axial imaging was performed from the skull base to vertex without intravenous administration of contrast. This CT examination was performed using dose optimization techniques as appropriate, variously including the following: *Automated exposure control *Adjustment of mA and/or kV according to patient size (this includes techniques or standardized protocols for targeted exams where dose is matched to indication/reason for exam; i.e. extremities or head) *Use of iterative reconstruction technique DLP: 736 mGy-cm FINDINGS: There is prominence to the sulci and ventricles. Moderate deep white matter gliosis is observed. No intra or extra-axial fluid collection, hemorrhage, mass, or mass effect. Calvarium intact. CT/CT head/brain wo IV con IMPRESSION: No acute intracranial pathology.
--- NOTE | ~2023-06-01 | XR_ITS ---
EXAMINATION: XR CHEST XR LEFT SHOULDER CLINICAL INFORMATION: Left-sided pain after fall. COMPARISON: 08/09/2018 and 06/15/2018 TECHNIQUE: Frontal view of the chest was obtained. AP internal rotation and transscapular Y views of the left shoulder were obtained. FINDINGS: Chest: The lungs are moderately expanded. There is airspace disease at the right lung base. There is a nodular density projecting over the left lung base measuring 1.9 cm. No pleural effusion. Cardiac silhouette is unchanged. Dedicated chest CT is recommended. Left shoulder: There are comminuted fractures involving the proximal humerus and glenoid. There is dislocation of the humeral head. The humeral shaft is superiorly subluxed. Marked surrounding soft tissue swelling. Acromioclavicular joint is intact. XR/XR chest 1V IMPRESSION: As above.
--- NOTE | ~2023-06-01 | CT_ITS ---
EXAMINATION: CT SHOULDER WITHOUT CONTRAST, LEFT CLINICAL INFORMATION: Fracture. COMPARISON: Left shoulder radiographs dated 06/01/2023. TECHNIQUE: Contiguous axial CT images of the left shoulder were obtained without contrast. Multiplanar reformats were provided and reviewed. This CT examination was performed using dose optimization techniques as appropriate, variously including the following: *Automated exposure control *Adjustment of mA and/or kV according to patient size (this includes techniques or standardized protocols for targeted exams where dose is matched to indication/reason for exam; i.e. extremities or head) *Use of iterative reconstruction technique. DOSE: 1107 mGycm. FINDINGS: Significantly displaced and comminuted fracture through the proximal left humerus with a dominant transverse fracture fragment through the humeral neck. The distal aspect of the fracture fragment is displaced anteriorly and proximally with cortical overlap of the dominant fracture fragments measuring up to 5.1 cm in craniocaudal dimension. AP displacement measures up to 3.5 cm. The dominant humeral head fracture fragment measures up to 5.5 cm in ML dimension. There are innumerable fracture fragments along the periphery of the fracture line including in the region of the lesser tuberosity with the largest measuring up to 2.9 cm in greatest dimension. The humeral head is inferiorly subluxed in relation to the glenoid. Findings are consistent with a four-part fracture as per the Neer classification system. No additional fracture. No acromioclavicular joint space narrowing or marginal osteophytes. No concerning lytic or blastic osseous lesion. Moderate glenohumeral lipohemarthrosis. Adjacent soft tissue edema. Rotator cuff tendons not well evaluated on CT examination. No left axillary lymphadenopathy. The visualized left lung is clear. CT/CT shoulder LT wo IV con IMPRESSION: 1. Significantly displaced and comminuted fracture through the proximal left humerus with a dominant transverse fracture fragment through the humeral neck. Innumerable fracture fragments along the periphery of the fracture line including the region of the lesser tuberosity. 2. Inferior subluxation of the humeral head in relation to the glenoid. 3. Moderate glenohumeral lipohemarthrosis.
[2023-06-01 09:41] VITALS: BP 152/88; PULSE 90; O2SAT 98
[2023-06-01 09:49] VITALS: BP 165/94; PULSE 101; RESP 17; TEMP 36.6; O2SAT 100; BMI 27.6
[2023-06-01 09:55] LABS: Glucose, Whole Blood 186 mg/dL (60-115)
--- NOTE | 2023-06-01 10:03 | ED_ITS ---
HPI - General Adult General Chief complaint: Fall Stated complaint: fall,l eyebrow lac,shoulder pain per ems Time Seen by Provider: 06/01/23 09:47 History of Present Illness HPI narrative: The patient is a 68-year-old male with a history of atrial fibrillation on dabigatran. Early this morning he was watching TV inferior. He had also been drinking alcohol. A 1 point he got up to go to the bathroom and fell. He does not know the exact details of the fall. He estimates it was somewhere between 03:00 and 05:00. He does not know if he lost consciousness. This morning he realized that he had significant pain in his left shoulder and he felt his shoulder might be dislocated. He also had ecchymotic changes to the eyelids of the left eye. He also has some pain in his left chest that is worse with breathing. The patient has a history of diabetes. He has a history of a left leg [id number] amputation secondary to a foot infection. He wears a prosthesis on his left leg. Despite his medical issues and his amputation the patient is normally quite active and swims a great deal. He describes himself as a triathlete. 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 The patient says that he was drinking last night because he has been feeling sad because of an Related Data Home Medications Medication Instructions Recorded Confirmed duloxetine 60 mg capsule,delayed 60 mg PO DAILY 12/21/19 05/02/23 release bupropion HCl 300 mg 24 hr tablet, 150 mg PO DAILY 02/27/20 05/02/23 extended release (Wellbutrin XL) multivitamin 1 tab PO DAILY 02/27/20 05/02/23 allopurinol 100 mg tablet 200 mg PO DAILY 02/08/21 05/02/23 atorvastatin 20 mg tablet 20 mg PO BEDTIME 06/27/22 05/02/23 metronidazole 0.75 % topical cream 1 appl topical BEDTIME 07/29/22 05/02/23 naltrexone 50 mg tablet 50 mg PO DAILY PRN Alcohol 08/24/22 05/02/23 Withdrawal hydroxyzine HCl 25 mg tablet 25 mg PO DAILY 01/13/23 05/02/23 buspirone 7.5 mg tablet 7.5 mg PO BID 04/24/23 05/02/23 Previous Rx's Medication Instructions Recorded blood-glucose meter (FreeStyle #1 ea 04/23/20 Lite Meter kit) blood sugar diagnostic (FreeStyle #300 ea 02/11/21 Lite Strips) lancets 28 gauge (FreeStyle #300 ea 02/11/21 Lancets) ketoconazole 2 % topical cream 1 appl topical DAILY #60 grams 08/10/21 dabigatran etexilate 150 mg 150 mg PO BID 90 days #180 caps 02/24/22 capsule (Pradaxa) metoprolol tartrate 50 mg tablet 50 mg PO BID 90 days #180 tabs 02/24/22 zinc gluconate 50 mg tablet 50 mg PO DAILY #90 tabs 05/03/22 digoxin 125 mcg (0.125 mg) tablet 125 mcg PO DAILY #90 caps 05/09/22 thiamine HCl (vitamin B1) 100 mg 100 mg PO DAILY #90 tabs 07/12/22 tablet flash glucose sensor (FreeStyle #1 ea 07/14/22 Erika 14 Day Sensor kit) blood pressure test kit-medium #1 ea 08/03/22 diltiazem HCl 180 mg 180 mg PO DAILY 90 days #90 caps 08/24/22 capsule,extended release 24 hr, controlled ascorbic acid (vitamin C) 500 mg 500 mg PO DAILY #90 tabs 10/17/22 tablet (Vitamin C) metformin 500 mg tablet 1,000 mg (2 x 500 mg) PO BID #180 12/28/22 tabs dapagliflozin propanediol 10 mg 10 mg PO DAILY #90 tabs 01/10/23 tablet (Farxiga) miscellaneous medical supply See Rx Instructions miscellaneous 01/13/23 .qd #1 ea dulaglutide 3 mg/0.5 mL 3 mg (0.5 mL) subcut QWEEK #6 mL 04/20/23 subcutaneous pen injector ([facility]) lisinopril 5 mg tablet 5 mg PO DAILY #90 tabs 04/24/23 folic acid 1 mg tablet 1 mg PO DAILY #90 tabs 05/17/23 Allergies Allergy/AdvReac Type Severity Reaction Status Date / Time vancomycin [VANCOMYCIN] Allergy Severe ANGIOEDEMA Verified 06/01/23 09:48 Sulfa (Sulfonamide Allergy Intermediate Rash Verified 06/01/23 09:48 Antibiotics) sulfamethoxazole Allergy rash Verified 06/01/23 09:48 [From Bactrim] trimethoprim [From Bactrim] Allergy Rash Verified 06/01/23 09:48 Review of Systems 2 Review of Systems: Yes all other systems are reviewed and are negative [facility] Past Medical History Medical History Adjustment disorder Annual physical exam Atherosclerotic cardiovascular disease BMI 30.0-30.9,adult BPH associated with nocturia CAD (coronary artery disease) Chronic osteomyelitis Depression Diabetic eye exam DM (diabetes mellitus) Essential hypertension ETOH abuse GERD (gastroesophageal reflux disease) Gout Hyperlipidemia LDL goal <100 Hypogammaglobulinemia Long-term current use of intravenous immunoglobulin (IVIG) Lymphoma Obesity due to excess calories Orthostatic hypotension EMIL (obstructive sleep apnea) PAF (paroxysmal atrial fibrillation) Persistent atrial fibrillation Rosacea Splenic marginal zone b-cell lymphoma Typical atrial flutter Surgical History History of bunionectomy History of cardiac cath History of colonoscopy History of esophagogastroduodenoscopy (EGD) Osteomyelitis Osteomyelitis Status post below-knee amputation of left lower extremity Family History Family History Father Diabetes Mother Liver cancer Maternal Grandfather CVD (cardiovascular disease) Brother Myocardial infarction Social History Social History (Updated 05/02/23 @ 11:23 by Louisa Garza RN) Household Members: Spouse and None Housing: House Do you presently have visiting nurse or other home services: No Alcohol intake: former Year quit: 2020 Patient Tobacco Use Status: Never used Tobacco e-Cigarette/Vaping Use: Never Used Advance Directives: No Advance Directives Information Provided: Yes service: No Current occupational status: employed 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 He is somewhat chronically ill-appearing 68-year-old who had some ecchymotic changes to the left eyelids. He has a left leg prosthesis. He had an obvious deformity to his left shoulder HENMT Other: There ecchymotic changes to the skin around the left eye. No raccoon eyes. No pineda sign. No intraoral injury. Eyes Other: Left eyelids are swollen and ecchymotic. The eyes themselves do not appear injured. Pupils are round equal, extraocular movements intact Neck Other: No marked C-spine tenderness. However given his description of alcohol use and the possibility of a distracting injury I do not feel I could clear his C-spine clinically. Chest Other: Mild left chest wall tenderness. No crepitus or subcutaneous emphysema Resp Other: No increased work of breathing. Lungs seem clear bilaterally Cardio Other: The patient has an irregular rate and rhythm. Mildly tachycardic. GI Other: Abdomen is soft and nontender Skin Other: There is some ecchymosis to the eyelids of the left eye. There are some ecchymotic skin changes to the left upper arm. The skin is intact. Neuro Other: The patient is awake and alert. He is oriented. Speech is clear. GCS is 15. Face is symmetrical. He has good director prospect strength in both hands. He moves his right leg with full strength. He moves his left leg with his prosthesis well Extrem Other: The patient has an obvious deformity of the left shoulder consistent with an empty glenoid socket. His exam was suggestive of a left anterior shoulder dislocation. He also had some ecchymosis to the skin of the anterior left upper arm although this was a later finding. The patient has a left sjyff-yok-ghpd amputation with a prosthesis Medications Administered Discontinued Medications Generic Name Dose Route Start Last Admin Trade Name Freq PRN Reason Stop Dose Admin Digoxin 0.125 mg 06/01/23 15:00 06/01/23 15:11 Digoxin 0.125 Mg Tablet PO 06/01/23 15:01 0.125 mg ONCE ONE Administration Diltiazem HCl 180 mg 06/01/23 15:00 06/01/23 15:11 Diltiazem Hcl Cd 180 Mg Cap.Er.24h PO 06/01/23 15:01 180 mg ONCE ONE Administration Protocol Hydromorphone HCl 1 mg 06/01/23 09:59 06/01/23 10:38 Hydromorphone Hcl 1 Mg/Ml Syringe IVPUSH 06/01/23 10:00 1 mg ONCE ONE Administration Protocol Hydromorphone HCl 1 mg 06/01/23 14:11 06/01/23 14:19 Hydromorphone Hcl 1 Mg/Ml Syringe IVPUSH 06/01/23 14:12 1 mg ONCE ONE Administration Protocol Magnesium Sulfate 2 gm in 50 mls @ 150 mls/hr 06/01/23 14:37 06/01/23 15:53 Magnesium Sulfate/H2o IV 06/01/23 14:56 Infused ONCE ONE Infusion Lisinopril 5 mg 06/01/23 15:00 06/01/23 15:11 Lisinopril 5 Mg Tablet PO 06/01/23 15:01 5 mg ONCE ONE Administration Protocol Metoprolol Tartrate 50 mg 06/01/23 15:00 06/01/23 15:11 Metoprolol Tartrate 50 Mg Tablet PO 06/01/23 15:01 50 mg ONCE ONE Administration Protocol Medical Decision Making Medical Decision Making [facility] Narrative: The patient was seen at soon after arrival. He seemed to clinically to have a left dislocated shoulder. I made an attempt at scapular manipulation to reduce what I thought was a dislocated left shoulder but the patient did not really tolerate my efforts because of pain and the attempt was quickly abandoned. The patient was then sent for a CT scan of the head and the cervical spine as well as x-rays of the chest and the left shoulder. The patient's left shoulder x-ray shows a fracture dislocation of the left proximal humerus. CT of the head and neck were negative. X-ray of the chest did not show any traumatic findings but suggested a possible right infiltrate. I communicated with Dr. Newton the orthopedist senior controls technician who requested a CT of the shoulder. The radiology report of the chest had recommended a CT of the chest as well and therefore the patient had a noncontrast CT of both the left shoulder and the chest. The chest CT was read as showing ?. Multifocal tree-in-bud opacities and peribronchiolar consolidation of the right middle lobe. Findings may represent mycobacterial infection. The CT of the shoulder was read as showing ?significantly displaced and comminuted fracture through the proximal left humerus with dominant transverse fracture fragment through the humeral neck. Innumerable fracture fragments along the periphery of the fracture line including the region of the lesser tuberosity. ? Also described as ?inferior subluxation of the humeral head in relation to the glenoid. ? Additionally ?moderate glenohumeral lipohemarthrosis. ? The patient's EKG showed atrial fibrillation. I believe this is chronic and the patient reports being on dabigatran although he says has not taken this medication for the past couple of days. He says he has not been caring for his health because he is depressed about his imminent divorce. The patient's alcohol level was 75. The patient's white blood count is 14.2. Whether this is a stress response to his fractures is unclear. His lung findings suggest the possibility of a lung infection but his history does not really suggest a pneumonia. His CRP is normal at 0.34. Magnesium level was low at 1.3. He was given magnesium repletion. Dr. Newton was ultimately able to reviewed the patient's CT of the shoulder. He does not feel there is an indication for acute hospitalization for repair of this fracture. He thinks this is a fracture that is quite complicated and may require joint replacement or other very advanced management. He feels that the patient should follow up with him in his office next week to discuss how to approach this injury. Since the patient does not require hospitalization for his fracture I am not certain that he requires hospitalization at all. There is a somewhat surprising finding of a possible right-sided pneumonia. I think it would be reasonable to treat the patient for pneumonia even though his CRP is only 0.34. However since the patient already has the significant disability with his left mzoxy-hfm-ffji amputation I do not think he will be able to return home with this new injury. The patient will therefore be kept in the emergency department for evaluation by case management and physical therapy tomorrow. In the meantime he will be started on cefuroxime and doxycycline for a possible community-acquired pneumonia. I have ordered a case management consult in a physical therapy consult and will place the patient in physician observation Lab Data 06/01/23 13:52 06/01/23 13:52 Labs: Lab Results 06/01/23 06/01/23 Range/Units 09:50 13:52 WBC 14.2 H (4.8-10.8) X10*3/uL RBC 4.75 (4.60-5.80) X10*6/uL Hgb 14.9 (14.0-18.0) g/dl Hct 43.0 (42.0-52.0) % MCV 90.5 (80.0-98.0) fL MCH 31.4 (27.0-33.0) pg MCHC 34.7 (31.0-36.0) g/dl RDW 13.7 (11.0-16.0) % Plt Count 420 H D (160-400) X10*3/uL MPV 9.4 (9.4-12.4) fL Immature Gran % (Auto) 0.4 (0.0-0.4) % Neut % (Auto) 83.8 H (45-73) % Lymph % (Auto) 8.9 L (20-40) % [place] % (Auto) 6.3 (2-11) % Eos % (Auto) 0.1 (0-4) % Baso % (Auto) 0.5 (0-2) % Lymph # (Auto) 1.3 (1.2-4.9) X10*3/uL [place] # (Auto) 0.9 (0.1-1.2) X10*3/uL Eos # (Auto) 0.0 (0.0-0.4) X10*3/uL Baso # (Auto) 0.1 (0.0-0.2) X10*3/uL Abs Immat Gran (auto) 0.05 H (0.00-0.03) X10*3/uL Absolute Neuts (auto) 11.9 H (2.0-8.3) x10*3/uL Absolute Nucleated RBC 0.000 (0.0-0.012) X10*3/uL Nucleated RBC % (auto) 0.0 (0.0-0.2) /100WBC Sodium 141 (135-145) mmol/L Potassium 4.0 (3.3-5.1) mmol/L Chloride 100 (96-108) mmol/L Carbon Dioxide 28 (22-29) mmol/L Anion Gap 17 (12-20) BUN 8 L (9-16) mg/dL Creatinine 0.75 (0.5-1.4) mg/dL Estim Creat Clear Calc 112.6 Estimated GFR > 60 POC Glucose 186 H (60-115) mg/dL Random Glucose 181 H (60-115) mg/dL Calcium 9.0 (8.4-10.2) mg/dL Magnesium 1.3 L* (1.6-2.6) mg/dL Total Bilirubin 0.7 (0.0-1.0) mg/dL Direct Bilirubin 0.2 (0.0-0.5) mg/dL AST 46 H (5-37) U/L ALT 33 (0-40) U/L Alkaline Phosphatase 127 H (39-117) U/L C-Reactive Protein 0.34 (< or = 0.50) mg/dL Total Protein 6.8 (6.5-8.0) g/dL Albumin 4.0 (3.5-5.0) g/dL Ethyl Alcohol 75 mg/dL Discharge Plan Discharge Clinical Impression: Closed fracture of left proximal humerus, Pneumonia involving right lung, Chronic atrial fibrillation, Amputation of left lower extremity below knee Patient Disposition: Still a Patient Prescriptions: No Action (DME) blood-glucose meter [FreeStyle Lite Meter] Kit See Rx Instructions .ROUTE .MEDSUPPLY Qty: 1 0RF Rx Instructions: As directed 3x/day (DME) FreeStyle Lite Strips Strip See Rx Instructions .Route Qty: 300 3RF Rx Instructions: Test blood sugar TID (DME) lancets [FreeStyle Lancets] 28 gauge misc See Rx Instructions .Route Qty: 300 3RF Rx Instructions: Test blood sugar TID dabigatran etexilate [Pradaxa] 150 mg capsule 150 mg PO BID 90 Days Qty: 180 3RF metoprolol tartrate 50 mg tablet 50 mg PO BID 90 Days Qty: 180 3RF zinc gluconate 50 mg tablet 50 mg PO DAILY Qty: 90 3RF digoxin 125 mcg (0.125 mg) tablet 125 mcg PO DAILY Qty: 90 3RF thiamine HCl (vitamin B1) 100 mg tablet 100 mg PO DAILY Qty: 90 3RF (DME) blood pressure test kit-medium Kit See Rx Instructions .Route Qty: 1 0RF Rx Instructions: As directed to monitor BP at home ascorbic acid (vitamin C) [Vitamin C] 500 mg tablet 500 mg PO DAILY Qty: 90 3RF metformin 500 mg tablet 1,000 mg PO BID Qty: 180 3RF Farxiga 10 mg tablet 10 mg PO DAILY Qty: 90 1RF Trulicity 3 mg/0.5 mL pen injector 3 mg subcut QWEEK Qty: 6 2RF folic acid 1 mg tablet 1 mg PO DAILY Qty: 90 3RF atorvastatin 20 mg tablet 20 mg PO BEDTIME allopurinol 100 mg tablet 200 mg PO DAILY ketoconazole 2 % cream 1 appl topical DAILY Qty: 60 2RF (DME) FreeStyle Erika 14 Day Sensor Kit See Rx Instructions .Route Qty: 1 4RF Rx Instructions: As directed hydroxyzine HCl 25 mg tablet 25 mg PO DAILY miscellaneous medical supply Misc See Rx Instructions miscellaneous .qd Qty: 1 2RF Rx Instructions: DIABETIC SHOES as directed QD; buspirone 7.5 mg tablet 7.5 mg PO BID lisinopril 5 mg tablet 5 mg PO DAILY Qty: 90 2RF multivitamin Tablet 1 tab PO DAILY duloxetine 60 mg capsule,delayed release(DR/EC) 60 mg PO DAILY bupropion HCl [Wellbutrin XL] 300 mg tablet extended release 24 hr 150 mg PO DAILY naltrexone 50 mg tablet 50 mg PO DAILY PRN (Reason: Alcohol Withdrawal) diltiazem HCl 180 mg capsule,ext.rel 24h degradable 180 mg PO DAILY 90 Days Qty: 90 3RF metronidazole 0.75 % cream 1 appl topical BEDTIME
--- NOTE | 2023-06-01 10:05 | PC.NURSE ---
Xray at bedside.
[2023-06-01 10:37] VITALS: PULSE 104; RESP 16; O2SAT 98
[2023-06-01] MEDS: HYDROmorphone HCl 1 MG/ML SYRINGE IVPUSH ×2 (10:38→14:19)
--- NOTE | 2023-06-01 11:57 | ECG_ITS ---
Test Reason : FALL Blood Pressure : / mmHG Vent. Rate : 118 BPM Atrial Rate : 000 BPM P-R Int : 000 ms QRS Dur : 088 ms QT Int : 304 ms P-R-T Axes : 000 -27 130 degrees QTc Int : 426 ms Atrial fibrillation with rapid ventricular response Anteroseptal infarct (cited on or before 02-MAR-2016) Abnormal ECG When compared with ECG of 06-JUL-2020 06:40, Vent. rate has increased BY 70 BPM Questionable change in initial forces of Anterior leads T wave inversion now evident in Lateral leads Referred By: Juwan Irwin Electronically Signed By:Lennox Milan
[2023-06-01 13:40] VITALS: BP 167/93; PULSE 112; RESP 19; TEMP 37.5; O2SAT 97
[2023-06-01 13:58] LABS: MANUAL DIFF FLAG NO
[2023-06-01 14:00] LABS: Basophils Absolute Auto 0.1 X10*3/uL (0.0-0.2); Basophils Percent Auto 0.5 % (0-2); Eosinophils Percent Auto 0.1 % (0-4); Hemoglobin 14.9 g/dl (14.0-18.0); Imm Gran Abs Auto 0.05 X10*3/uL (0.00-0.03); Imm Gran Pct Auto 0.4 % (0.0-0.4); Lymphocytes Absolute Auto 1.3 X10*3/uL (1.2-4.9); Lymphocytes Percent Auto 8.9 % (20-40); Mean Corpuscular HGB Conc 34.7 g/dl (31.0-36.0); Mean Corpuscular Hemoglobin 31.4 pg (27.0-33.0); Mean Corpuscular Volume 90.5 fL (80.0-98.0); Mean Platelet Volume 9.4 fL (9.4-12.4); Monocytes Absolute Auto 0.9 X10*3/uL (0.1-1.2); Monocytes Percent Auto 6.3 % (2-11); Neutrophils Absolute Auto 11.9 x10*3/uL (2.0-8.3); Neutrophils Percent Auto 83.8 % (45-73); Platelet Count 420 X10*3/uL (160-400); Red Blood Count 4.75 X10*6/uL (4.60-5.80); Red Cell Distribution Width 13.7 % (11.0-16.0); White Blood Count 14.2 X10*3/uL (4.8-10.8)
[2023-06-01 14:25] LABS: Ethanol 75 mg/dL
[2023-06-01 14:34] LABS: Alanine Aminotransferase 33 U/L (0-40); Alkaline Phosphatase 127 U/L (39-117); Anion Gap 17 (12-20); Aspartate Amino Transferase 46 U/L (5-37); Bilirubin Direct 0.2 mg/dL (0.0-0.5); Bilirubin Total 0.7 mg/dL (0.0-1.0); Blood Urea Nitrogen 8 mg/dL (9-16); Carbon Dioxide 28 mmol/L (22-29); Chloride 100 mmol/L (96-108); Creatinine Clr Calc Pharmacy 112.6; Estimated Glomerular Filt Rate > 60; Glucose Random 181 mg/dL (60-115); Magnesium 1.3 mg/dL (1.6-2.6); Sodium 141 mmol/L (135-145); Total Protein 6.8 g/dL (6.5-8.0)
[2023-06-01 14:55] VITALS: BP 165/105; PULSE 127; RESP 18; TEMP 37.1; O2SAT 97
--- NOTE | 2023-06-01 15:01 | PC.NURSE ---
Plan of care reviewed with patient, patient to remain NPO at this time until provider speaks to ortho, made aware additional scans have been order, patient placed in sling by EDT, medicated for pain per Mar.
[2023-06-01 15:02] LABS: C Reactive Protein 0.34 mg/dL (< or = 0.50)
[2023-06-01] MEDS: dilTIAZem HCL CD 180 MG CAP.ER.24H PO (15:11)
[2023-06-01] MEDS: lisinopriL 5 MG TABLET PO (15:11)
[2023-06-01] MEDS: Digoxin 0.125 MG TABLET PO (15:11)
[2023-06-01] MEDS: Magnesium Sulfate/H2O 2 GM/50 ML PIGGYBACK IV (15:11)
[2023-06-01] MEDS: Metoprolol Tartrate 50 MG TABLET PO ×2 (15:11→20:58)
--- NOTE | 2023-06-01 19:23 | PHA.MEDREC ---
Pharmacy Consult ? Medication Reconciliation Pharmacy has completed the medication reconciliation. Patient confirmed medications. Reports using buspar 7.5 mg and not the 10 mg tablets. Senia Brunner, PharmD
--- NOTE | 2023-06-01 19:58 | PC.NURSE ---
PT TRANSFERRED WITH 1-ASSIST TO WHEELCHAIR WITH PROSTHETIC IN PLACE, TAKEN TO RESTROOM WITH NO ISSUE. MED REC COMPLETED, AWAITING RX AND PRN ORDERS FOR PAIN.
[2023-06-01] MEDS: Doxycycline Monohydrate 100 MG CAPSULE PO (20:57)
[2023-06-01] MEDS: oxyCODONE HCl Immed Release 5 MG TABLET PO (20:57)
[2023-06-01] MEDS: cefuroxime axetiL 500 MG TABLET PO (20:57)
[2023-06-01] MEDS: hydrOXYzine HCL 25 MG TABLET PO (20:58)
[2023-06-01] MEDS: metFORMIN HCl 1,000 MG TABLET 1000 MG PO (20:58)
[2023-06-01] MEDS: Atorvastatin Calcium 20 MG TABLET PO (20:58)
[2023-06-01] MEDS: busPIRone HCl 5 MG TABLET 7.5 MG PO (20:58)
[2023-06-01 21:03] VITALS: BP 143/83; PULSE 102; RESP 20; O2SAT 96
--- NOTE | 2023-06-01 21:29 | PC.NURSE ---
Patient assisted to BR w/ assist of 2 + wheelchair, continues to be intermittently tearful about current life and health state, verbal reassurance given, patient responding well to encouragement, resting comfortably on stretcher at this time.
--- NOTE | 2023-06-01 22:58 | MHC.EDTECH ---
pt requested a sandwich and something to drink. [place] and water provided. patient waem and resting comfortably .
--- NOTE | 2023-06-02 03:08 | PC.NURSE ---
pt a&o, no sob or chest pain, pt placed in hospital bed, dressing applied for right foot for open area, pt is followed by wound nurse.
--- NOTE | 2023-06-02 03:09 | MHC.EDTECH ---
pt transferred to hospital bed.
[2023-06-02 04:06] VITALS: BP 139/81; PULSE 72; RESP 16; TEMP 37; O2SAT 98
[2023-06-02] MEDS: oxyCODONE HCl Immed Release 5 MG TABLET PO ×2 (05:19→12:36)
[2023-06-02 07:23] LABS: Glucose, Whole Blood 152 mg/dL (60-115)
[2023-06-02 08:00] VITALS: BP 130/80; PULSE 77; RESP 18; TEMP 36.8; O2SAT 98
[2023-06-02 09:00] VITALS: BP 139/81; PULSE 80; RESP 16; TEMP 37.1; O2SAT 97
--- NOTE | 2023-06-02 09:00 | PC.NURSE ---
PT A/O X 4 NO SOB/LAURIE NOTED SPEAKS IN FULL SENTENCES. POC AT 0730 - 182, NO COVERAGE INDIDCATED. PT C/O 7/10 L ARM PAIN. PT HAS A FX L HUMERUS WHICH IS IN A SLING. PT HAS A L BKA WITH PROSTHETIC WHEN AMBULATING. PT AWARE OF PLAN OF CARE, WILL CONTINUE TO MONITOR.
[2023-06-02] MEDS: Digoxin 0.125 MG TABLET PO (09:07)
[2023-06-02] MEDS: Thiamine HCL 100 MG TABLET PO (09:07)
[2023-06-02] MEDS: Ascorbic Acid 500 MG TABLET PO (09:07)
[2023-06-02] MEDS: dilTIAZem HCL CD 180 MG CAP.ER.24H PO (09:07)
[2023-06-02] MEDS: Doxycycline Monohydrate 100 MG CAPSULE PO (09:07)
[2023-06-02] MEDS: lisinopriL 5 MG TABLET PO (09:08)
[2023-06-02] MEDS: allopurinoL 100 MG TABLET 200 MG PO (09:08)
[2023-06-02] MEDS: cefuroxime axetiL 500 MG TABLET PO (09:08)
[2023-06-02] MEDS: DULoxetine HCl 60 MG CAPSULE.DR PO (09:08)
[2023-06-02] MEDS: Folic Acid 1 MG TABLET PO (09:09)
[2023-06-02] MEDS: Multivitamin TABLET 1 TAB PO (09:09)
[2023-06-02] MEDS: buPROPion HCl XL 150 MG TAB.ER.24H PO (09:09)
[2023-06-02] MEDS: metFORMIN HCl 1,000 MG TABLET 1000 MG PO (09:09)
[2023-06-02] MEDS: Metoprolol Tartrate 50 MG TABLET PO (09:09)
[2023-06-02] MEDS: busPIRone HCl 5 MG TABLET 7.5 MG PO (09:10)
[2023-06-02] MEDS: Naltrexone HCl 50 MG TABLET PO (09:36)
[2023-06-02] MEDS: Empagliflozin 10 MG TABLET PO (09:36)
[2023-06-02] MEDS: Zinc Sulfate 220 MG CAPSULE PO (09:36)
[2023-06-02 10:43] VITALS: BP 139/81; PULSE 80; O2SAT 97
[2023-06-02 10:58] LABS: COVID-19 Test Negative (Negative); IDNOW Serial# 152EDE1D
--- NOTE | 2023-06-02 11:31 | PC.NURSE ---
RN TO RN REPORT GIVEN TO JESSICA. PT AWARE OF PLAN OF CARE FOR TRANSFER TO THE OVERFLOW UNIT WITH HIS BELONGINGS.
[2023-06-02 11:53] LABS: Glucose, Whole Blood 154 mg/dL (60-115)
[2023-06-02 12:14] VITALS: BP 152/93; PULSE 68; RESP 18; TEMP 36.5; O2SAT 96
--- NOTE | 2023-06-02 12:29 | MHC.CM.ED ---
Addendum entered by Caroline Nassar 06/02/23 13:40: Patient can leave for [facility] at 3pm. Jhony MILES booked. [facility] with chart. Patient, Magaly PION and Damaris OLIVERA aware. Addendum entered by Caroline Nassar 06/02/23 12:32: Patient has a history of ETOH abuse. Patient had alcohol prior to coming to the ER.However, prior to that patient had not touched alcohol in over a year. Original Note: Received case management consult overnight. Patient came to the ER due to a fall. Work up revealed humerus and scalpula fracture. Physical therapy eval completed. Short term rehab is recommended. Met with patient in regards to discharge planning. Patient was living with his . However, Moni recently filed for divorce. Patient now lives alone, uses a prosthesis for left below the knee amp. Patient denies any services at home. PCP verified. Copy of HCP verified to be on file. Patient has been to [facility] in the past. T/W explained [facility] doesn't authorize acute rehab unless r/t CVA. Patient verbalized understanding. Referral broadcasted in [facility]. Bed offers discussed with patient. Patient accepts bed at [facility]. [facility] is in the process of obtaining insurance auth. Continue to monitor for d/c needs.
== END 2023-06-02 15:12 | disposition home or self-care (01) ==
PROVIDERS: Physician Assistant; Emergency Provider Emergency Medicine; PCP Internal Medicine
DX: S42.202A Unspecified fracture of upper end of left humerus, initial encounter for closed fracture (principal); W07.XXXA Fall from chair, initial encounter; J18.9 Pneumonia, unspecified organism; I48.20 Chronic atrial fibrillation, unspecified; F10.10 Alcohol abuse, uncomplicated; Y90.3 Blood alcohol level of 60-79 mg/100 ml; Z89.512 Acquired absence of left leg below knee; M25.512 Pain in left shoulder; Z11.52 Encounter for screening for COVID-19; E11.9 Type 2 diabetes mellitus without complications; Y93.89 Activity, other specified; Y92.018 Other place in single-family (private) house as the place of occurrence of the external cause; Y99.9 Unspecified external cause status; Z79.01 Long term (current) use of anticoagulants; Z79.899 Other long term (current) drug therapy
CPT/HCPCS: 36415; 70450; 71045; 71250; 72125; 73030; 73200; 80048; 80076; 80307; 82947; 83735; 85025; 86140; 87040; 87635; 93005; 96365; 96375; 97162; 99285; J1170; J3475

== ENCOUNTER → 2023-06-01 11:57 | Outpatient (BNV) | payer OTHER, SELFPAY | PROVIDERS: Emergency Provider Emergency Medicine; PCP Internal Medicine; Visit Provider Internal Medicine Cardiovascular Disease | DX: R94.31 Abnormal electrocardiogram [ECG] [EKG] (principal) | CPT/HCPCS: 93010 ==

== ENCOUNTER 2023-07-13 10:33 | Outpatient (REF) | payer OTHER, SELFPAY ==
[2023-07-13 11:45] LABS: Alanine Aminotransferase 24 U/L (0-40); Albumin Level 3.9 g/dL (3.5-5.0); Alkaline Phosphatase 208 U/L (39-117); Anion Gap 13 (12-20); Aspartate Amino Transferase 27 U/L (5-37); Bilirubin Total 0.4 mg/dL (0.0-1.0); Blood Urea Nitrogen 22 mg/dL (9-16); Calcium 9.7 mg/dL (8.4-10.2); Carbon Dioxide 21 mmol/L (22-29); Chloride 111 mmol/L (96-108); Estimated Glomerular Filt Rate > 60; Glucose Random 102 mg/dL (60-115); Potassium 3.9 mmol/L (3.3-5.1); Sodium 141 mmol/L (135-145); Total Protein 6.4 g/dL (6.5-8.0)
[2023-07-13 12:01] LABS: Prostate Specific Antigen 1.03 ng/mL (<0.05-4.0)
[2023-07-18 23:43] LABS: Testosterone, Total 98 ng/dL (250-1100)
== END 2023-07-13 10:34 | disposition home or self-care (01) ==
LOC: HO.LAB 10:33
PROVIDERS: Urology; PCP Internal Medicine; Visit Provider Internal Medicine
DX: Z12.5 Encounter for screening for malignant neoplasm of prostate (principal); N40.1 Benign prostatic hyperplasia with lower urinary tract symptoms; R35.1 Nocturia; E11.621 Type 2 diabetes mellitus with foot ulcer; L97.509 Non-pressure chronic ulcer of other part of unspecified foot with unspecified severity; I10 Essential (primary) hypertension; I48.19 Other persistent atrial fibrillation
CPT/HCPCS: 36415; 80053; 84153; 84403

== ENCOUNTER 2023-07-21 08:53 | Outpatient (REF) | payer OTHER, SELFPAY ==
--- NOTE | ~2023-07-21 | XR_ITS ---
EXAMINATION: XR SHOULDER, LEFT CLINICAL INFORMATION: Reason for Exam M25.519 - Pain in unspecified shoulder COMPARISON: Shoulder CT and radiographs 06/01/2023 TECHNIQUE: Two views of the shoulder. FINDINGS: Comminuted displaced fracture of the head and neck of the humerus appreciated with increasing periosteal reaction and some bridging bony callus formation. Persistent subluxation/dislocation of the humeral head in relation to the glenoid. Some increasing lucency involving the glenoid suggesting disuse osteopenia. Acromioclavicular joint space is maintained. Soft tissues are unremarkable. XR/XR shoulder LT min 2V IMPRESSION: 1. Comminuted displaced fracture of the head and neck of the humerus appreciated with increasing periosteal reaction and some bridging bony callus formation. Persistent subluxation/dislocation of the humeral head in relation to the glenoid. 2. Some increasing lucency involving the glenoid suggesting disuse osteopenia.
== END 2023-07-21 08:54 | disposition home or self-care (01) ==
LOC: HO.HOSX 08:53
PROVIDERS: Visit Provider Orthopaedic Surgery
DX: S42.202D Unspecified fracture of upper end of left humerus, subsequent encounter for fracture with routine healing (principal); M25.512 Pain in left shoulder; X58.XXXD Exposure to other specified factors, subsequent encounter
CPT/HCPCS: 73030; 99202

== ENCOUNTER 2023-07-21 09:45 | Outpatient (AMB) | payer OTHER, SELFPAY ==
--- NOTE | 2023-07-21 09:49 | MHC.OFFVIS ---
Vital Signs 07/21/23 09:57 Height 6 ft 2 in Weight 214 lb BMI 27.5 Intake Visit Reasons: New Pt - Left Proximal humerus Fx 06/01/23 Intake Note: Ashley is a 68 year old right hand dominant male who presents today as a new patient with complaints of left shoulder pain. Patient took a fall on 06/01/23 after taking a fall resulting in a displaced and comminuted fracture of the left proximal humerus. While at [facility] it was advised that he follow up in office in 1 week to discuss TSA or other advanced intervention. Patient reports that he is doing well, his pain has been manageable with rest. ROM of the shoulder has improved. The shoulder has a deformity to the touch. He has been unable to work. Allergies vancomycin [VANCOMYCIN] Allergy (Severe, Verified 06/01/23 09:48) ANGIOEDEMA Sulfa (Sulfonamide Antibiotics) Allergy (Intermediate, Verified 06/01/23 09:48) Rash sulfamethoxazole [From Bactrim] Allergy (Verified 06/01/23 09:48) rash trimethoprim [From Bactrim] Allergy (Verified 06/01/23 09:48) Rash HPI HPI New Pt - Left Proximal humerus Fx 06/01/23: Details: Ashley is a 68 year old right hand dominant male who presents today as a new patient with complaints of left shoulder pain. Patient took a fall on 06/01/23 after taking a fall resulting in a displaced and comminuted fracture of the left proximal humerus. While at [facility] ED it was advised that he follow up in office in 1 week to discuss TSA or other advanced intervention. Patient reports that he is doing well, his pain has been manageable with rest. ROM of the shoulder has improved. The shoulder has a deformity to the touch. He has been unable to work. I spoke with him in the ED and he has returned today. He did speak with an ortho surgeon in [place] who agreed with my prior assessment according to Ashley. He is RHD and very active. He has a left BKA, performed ~7 years ago for an infection in the setting of lymphoma which has been treated. [facility] Medical History Adjustment disorder Annual physical exam Atherosclerotic cardiovascular disease BMI 30.0-30.9,adult BPH associated with nocturia CAD (coronary artery disease) Chronic osteomyelitis Depression Diabetic eye exam DM (diabetes mellitus) Essential hypertension ETOH abuse GERD (gastroesophageal reflux disease) Gout Hyperlipidemia LDL goal <100 Hypogammaglobulinemia Long-term current use of intravenous immunoglobulin (IVIG) Lymphoma Obesity due to excess calories Orthostatic hypotension EMIL (obstructive sleep apnea) PAF (paroxysmal atrial fibrillation) Persistent atrial fibrillation Rosacea Splenic marginal zone b-cell lymphoma Typical atrial flutter Surgical History History of bunionectomy History of cardiac cath History of colonoscopy History of esophagogastroduodenoscopy (EGD) Osteomyelitis Osteomyelitis Status post below-knee amputation of left lower extremity Family History Father Diabetes Mother Liver cancer Maternal Grandfather CVD (cardiovascular disease) Brother Myocardial infarction Social History (Updated 05/02/23 @ 11:23 by Louisa Garza RN) Household Members: Spouse and None Housing: House Do you presently have visiting nurse or other home services: No Alcohol intake: former Year quit: 2019 Patient Tobacco Use Status: Never used Tobacco e-Cigarette/Vaping Use: Never Used Advance Directives Date on File: 06/02/23 service: No Current occupational status: employed 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 SILT -5/35/50/neglibile Results Reviewed Results Reviewed: I personally reviewed relevant radiographs. 4 part proximal humerus fracture with proximal migration of the shaft and near complete loss of proximal anatomy. Assessment & Plan Assessment & Plan (1) Closed fracture of left proximal humerus: Code(s): S42.202A - Unspecified fracture of upper end of left humerus, initial encounter for closed fracture Category: Medical Plan: This is a 68 yo active M with a comminuted and shortened 4 part proximal humerus fracture. I reccomend reverse TSA, I will have our Nurse Navigator reach out to him for surgical planning. I discussed the risks benefits and alternatives including but not limited to the risk of pain, infection, stiffness, dislocation, need for further surgery as well as potential medical complications such as blood clots, pulmonary embolism and cardiac complications. I recommend pre operative PT for ROM. He has afib and is not? anticoagulated. He is diabetic and has vasculopathy and neuropathy. He will need medical clearance. Orders: Orders PT Evaluation and Treatment Today S4 - Unspecified fracture of upper end of left humerus, initial encounter for closed fracture XR shoulder LT min 2V Today M25.519 - Pain in unspecified shoulder Coding Level of Care Code New Pt Level 4 (92314) Diagnoses Closed fracture of left proximal humerus S4
[2023-07-21 09:57] VITALS: BMI 27.5
== END 2023-07-21 10:31 | disposition home or self-care (01) ==
PROVIDERS: PCP Internal Medicine; Visit Provider Orthopaedic Surgery
DX: S42.202A Unspecified fracture of upper end of left humerus, initial encounter for closed fracture (principal)
CPT/HCPCS: 99204

== ENCOUNTER 2023-07-24 13:59 | Outpatient (AMB) | payer OTHER, SELFPAY ==
--- NOTE | 2023-07-24 14:01 | MHC.PC.OV ---
Vital Signs 07/24/23 14:02 Height 6 ft 2 in Weight 207 lb BMI 26.6 BP 130/78 Blood Pressure Location Rt brachial Position Sitting Pulse 72 Pulse Source Pulse Oximeter Pulse Oximetry (%) 97 Oxygen Delivery Method Room Air Intake Visit Reasons: 3 month follow up Intake Note: patient is here for 3 month follow up [place] Required: No Accompanied by: Self / Same As Patient Allergies vancomycin [VANCOMYCIN] Allergy (Severe, Verified 07/24/23 14:03) ANGIOEDEMA Sulfa (Sulfonamide Antibiotics) Allergy (Intermediate, Verified 07/24/23 14:03) Rash sulfamethoxazole [From Bactrim] Allergy (Verified 07/24/23 14:03) rash trimethoprim [From Bactrim] Allergy (Verified 07/24/23 14:03) Rash Tobacco use date assessed: 07/24/23 Fall risk assessment: 2 + Falls in past year Last assessed Fall Risk: 07/24/23 Dental Screening Dental Screen Date: 07/24/23 Did you have a dental visit in the last 12 months?: Yes Did you have a dental problem in the last 6 months where you did not have access to dental care?: No Was dental information given to patient?: Patient has dentist HPI 3 month follow up HPI Details Pt presents for f/u DM 2, HTN, hyperlipid, chronic anxiety stable on current medications. Patient broke his left humerus and will have a shoulder replacement surgery in August by Dr. Newton. He denies new complains has been sober for at least a month. Patient follows up with addiction counselor and a psychiatrist [facility] Medical History Adjustment disorder Annual physical exam Atherosclerotic cardiovascular disease BMI 30.0-30.9,adult BPH associated with nocturia CAD (coronary artery disease) Chronic osteomyelitis Depression Diabetic eye exam DM (diabetes mellitus) Essential hypertension ETOH abuse GERD (gastroesophageal reflux disease) Gout Hyperlipidemia LDL goal <100 Hypogammaglobulinemia Long-term current use of intravenous immunoglobulin (IVIG) Lymphoma Obesity due to excess calories Orthostatic hypotension EMIL (obstructive sleep apnea) PAF (paroxysmal atrial fibrillation) Persistent atrial fibrillation Rosacea Splenic marginal zone b-cell lymphoma Typical atrial flutter Surgical History Status post below-knee amputation of left lower extremity Osteomyelitis Osteomyelitis History of esophagogastroduodenoscopy (EGD) History of colonoscopy History of bunionectomy History of cardiac cath Family History Father Diabetes Mother Liver cancer Maternal Grandfather CVD (cardiovascular disease) Brother Myocardial infarction Social History Household Members: Spouse and None Housing: House Do you presently have visiting nurse or other home services: No Alcohol intake: former Year quit: 2019 Patient Tobacco Use Status: Never used Tobacco e-Cigarette/Vaping Use: Never Used Advance Directives Date on File: 06/02/23 service: No Current occupational status: employed 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 1. Little interest or pleasure in doing things: several days 2. Feeling down, depressed, or hopeless: several days 3. Trouble falling or staying asleep, or sleeping too much: several days 4. Feeling tired or having little energy: not at all 5. Poor appetite or overeating: not at all 6. Feeling bad about yourself - or that you are a failure or have let yourself or your family down: more than half the days 7. Trouble concentrating on things, such as reading the newspaper or watching television: more than half the days 8. Moving or speaking so slowly that other people could have noticed. Or the opposite - being so fidgety or restless that you have been moving around a lot more than usual: more than half the days 9. Thoughts that you would be better off or of hurting yourself in some way: several days Total score: 10 Depression Screening Interpretation: Positive (Patient is established with a psychiatrist and counselor) Depression Screening Follow-up: Existing condition and In treatment Depression Screening Done: Yes 25952 - PHQ-9 Billing: Yes Source: Developed by Drs. Ike Hummel, Daniela Alejandro, Yonatan Gr and colleagues, with an educational rosa from [employer]. Thrive Questionnaire Date Thrive assessed: 07/24/23 I am a: Patient What is your living situation today?: I have a place to live, but I am worried about losing it in the future Within the past 12 months, did the food you bought not last and you didn't have the money to get more?: Never true Within the past 12 months, did you worry whether your food would run out before you got money to buy more?: Never true Do you have trouble paying for medicines?: No Do you have trouble getting transportation to medical appointments?: No Do you have trouble paying your heating and electricity bill?: No Do you have trouble taking care of your child, family member or friend?: No Do you have trouble with day-to-day activities such as bathing, preparing meals, shopping, managing finances, etc.?: Yes Are you currently unemployed and looking for a job?: No Are you interested in more education?: No Please select the resources that you would like help with: Housing/Long-Term and Food Currently or been in a relationship where the following occur: no concerns reported THRIVE Score: 1 AUDIT C Alcohol Use Questionnaire (AUDIT-C) 1. How often do you have a drink containing alcohol?: Never 3. How often do you have six or more drinks on one occasion?: Never Total Score: 0 Score Reviewed/Action Taken: Yes TRAVON-7 AMB Questionnaire TRAVON-7 Date TRAVON - 7 assessed: 07/24/23 Feeling nervous, anxious, or on edge: 1 = Several days Not being able to stop or control worryin = Several days Worrying too much about different things: 1 = Several days Trouble relaxin = Several days Being so restless that it is hard to sit still: 1 = Several days Becoming easily annoyed or irritable: 1 = Several days Feeling afraid as if something awful might happen: 1 = Several days Total TRAVON-7 score (0-4 normal; 5-9 mild; 10-14 moderate; 15-21 severe): 7 Source: Developed by Drs. Ike Hummel, Daniela Alejandro, Yonatan Gr and colleagues, with an educational rosa from [employer]. TRAVON-7 Assessment Billing TRAVON-7 Assessment Tool: TRAVON-7 Assessment 96555 Review of Systems Const All systems reviewed & are unremarkable except as noted in HPI and below ENT Reports no additional complaints Card Reports no additional complaints Resp Reports no additional complaints GI Reports no additional complaints Reports no additional complaints Physical exam (Primary Care) Vital Signs: Last Vital Signs Pulse 72 07/24/23 14:02 BP 130/78 07/24/23 14:02 Pulse Ox 97 07/24/23 14:02 Oxygen Delivery Method Room Air 07/24/23 14:02 BMI result Body Mass Index 26.6 Tobacco/Smoking Status: Tobacco use Status Tobacco use date assessed 07/24/23 07/24/23 14:13 Patient Tobacco Use Status Never used Tobacco 07/24/23 14:05 e-Cigarette/Vaping Use Never Used 07/24/23 14:05 PHQ-9: PHQ-9 Score PHQ-9: Total score 10 07/24/23 14:10 Depression Screening Interpretation: Positive (Patient is established with a psychiatrist and counselor) Depression Screening Follow-up: Existing condition and In treatment Thrive Assessment: Date of Thrive Assessment Date Thrive assessed 07/24/23 07/24/23 14:10 Currently or been in a relationship where the following occur: no concerns reported Const General: no acute distress HENMT Head: Yes normal to inspection General nose exam: Normal external nose present Eyes General: appearance normal, both eyes and all related structures Resp Effort & Inspection: normal respiratory effort Auscultation: clear to auscultation bilaterally Cardio Rhythm: abnormal rhythm irregularly irregular Heart sounds: S1 normal heart sound present and S2 normal heart sound present GI Palpation (GI): Soft to palpation Percussion: Yes normal to percussion Auscultation: normal bowel sounds Extrem Other: Status post left BKA Assessment and Plan Assessment & Plan (1) ETOH abuse: Code(s): F10.10 - Alcohol abuse, uncomplicated Plan: Follow-up with addiction counselor (2) DM (diabetes mellitus): Code(s): E11.9 - Type 2 diabetes mellitus without complications Plan: A1c was 6.0, Continue ADA diet increase physical activity continue current medications return in 3 months with a fasting labs including A1c (3) Status post below-knee amputation of left lower extremity: Comment: FOR OSTEOMYELITIS 12/2017 Code(s): Z89.512 - Acquired absence of left leg below knee Plan: Follow-up with ortho (4) Splenic marginal zone b-cell lymphoma: Comment: in remission f/u [facility] hematology Code(s): C83.07 - Small cell B-cell lymphoma, spleen Plan: Follow-up with Hematology (5) A-fib: Code(s): I48.91 - Unspecified atrial fibrillation Plan: Continue current medications and follow-up with Cardiology (6) PVD (peripheral vascular disease): Comment: Follow-up with the vascular surgeon Code(s): I73.9 - Peripheral vascular disease, unspecified Orders: Orders Complete Blood Count Auto Diff 3 Months C83.07 - Small cell B-cell lymphoma, spleen, E11.42 - Type 2 diabetes mellitus with diabetic polyneuropathy, E11.9 - Type 2 diabetes mellitus without complications, F10.10 - Alcohol abuse, uncomplicated, I48.91 - Unspecified atrial fibrillation, I73.9 - Peripheral vascular disease, unspecified, Z89.512 - Acquired absence of left leg below knee Lipid Panel 3 Months C83.07 - Small cell B-cell lymphoma, spleen, E11.42 - Type 2 diabetes mellitus with diabetic polyneuropathy, E11.9 - Type 2 diabetes mellitus without complications, F10.10 - Alcohol abuse, uncomplicated, I48.91 - Unspecified atrial fibrillation, I73.9 - Peripheral vascular disease, unspecified, Z89.512 - Acquired absence of left leg below knee Hemoglobin A1c 3 Months C83.07 - Small cell B-cell lymphoma, spleen, E11.42 - Type 2 diabetes mellitus with diabetic polyneuropathy, E11.9 - Type 2 diabetes mellitus without complications, F10.10 - Alcohol abuse, uncomplicated, I48.91 - Unspecified atrial fibrillation, I73.9 - Peripheral vascular disease, unspecified, Z89.512 - Acquired absence of left leg below knee Comprehensive [place]. Panel Fast 3 Months C83.07 - Small cell B-cell lymphoma, spleen, E11.42 - Type 2 diabetes mellitus with diabetic polyneuropathy, E11.9 - Type 2 diabetes mellitus without complications, F10.10 - Alcohol abuse, uncomplicated, I48.91 - Unspecified atrial fibrillation, I73.9 - Peripheral vascular disease, unspecified, Z89.512 - Acquired absence of left leg below knee PSA,Total (Free>4and<10) 3 Months C83.07 - Small cell B-cell lymphoma, spleen, E11.42 - Type 2 diabetes mellitus with diabetic polyneuropathy, E11.9 - Type 2 diabetes mellitus without complications, F10.10 - Alcohol abuse, uncomplicated, I48.91 - Unspecified atrial fibrillation, I73.9 - Peripheral vascular disease, unspecified, Z89.512 - Acquired absence of left leg below knee Coding Level of Care Code Est Pt Level 4 (52714) Diagnoses ETOH abuse F10.10 DM (diabetes mellitus) E11.9 Status post below-knee amputation of left lower extremity Z89.512 Splenic marginal zone b-cell lymphoma C83.07 A-fib I48.91 PVD (peripheral vascular disease) I73.9 Additional Codes TRAVON-7 Assessment Billing - TRAVON-7 Assessment Tool: TRAVON-7 Assessment 05311 ([id number])
[2023-07-24 14:02] VITALS: BP 130/78; PULSE 72; O2SAT 97; BMI 26.6
== END 2023-07-24 14:44 | disposition home or self-care (01) ==
PROVIDERS: PCP Internal Medicine; Visit Provider Internal Medicine
DX: E11.51 Type 2 diabetes mellitus with diabetic peripheral angiopathy without gangrene (principal); Z89.512 Acquired absence of left leg below knee; C83.07 Small cell B-cell lymphoma, spleen; I48.91 Unspecified atrial fibrillation; I73.9 Peripheral vascular disease, unspecified; F10.10 Alcohol abuse, uncomplicated
CPT/HCPCS: 99214

== ENCOUNTER 2023-08-01 09:21 | Outpatient (AMB) | payer OTHER, SELFPAY ==
--- NOTE | 2023-08-01 09:25 | MHC.OFFVIS ---
Intake Visit Reasons: 1Y PSA(set) Intake Note: Patient is Present for PVR/PSA Urology Med: None Antibiotic Allergy: Vancomycin, Sulfa Antibiotics, Bactrim, Trimethroprim Blood Thinner: None Last PVR: 0ml Todays PVR: 0ml Allergies vancomycin [VANCOMYCIN] Allergy (Severe, Verified 08/01/23 09:28) ANGIOEDEMA Sulfa (Sulfonamide Antibiotics) Allergy (Intermediate, Verified 08/01/23 09:28) Rash sulfamethoxazole [From Bactrim] Allergy (Verified 08/01/23 09:28) rash trimethoprim [From Bactrim] Allergy (Verified 08/01/23 09:28) Rash Medication List - Last Reconciled 08/01/23 by Cordell Montero MD allopurinol 200 mg PO DAILY ascorbic acid (vitamin C) (Vitamin C) 500 mg PO DAILY atorvastatin 20 mg PO BEDTIME 30 days blood pressure test kit-medium As directed to monitor BP at home blood sugar diagnostic (FreeStyle Lite Strips) Test blood sugar TID blood-glucose meter (FreeStyle Lite Meter kit) As directed 3x/day bupropion HCl XL 150 mg PO DAILY buspirone 7.5 mg PO BID dabigatran etexilate (Pradaxa) 150 mg PO BID 90 days dapagliflozin propanediol (Farxiga) 10 mg PO DAILY digoxin 125 mcg PO DAILY 30 days diltiazem HCl ER 180 mg PO DAILY 30 days dulaglutide (Trulicity) 3 mg subcut WE duloxetine 60 mg PO DAILY flash glucose sensor (FreeStyle Erika 14 Day Sensor kit) As directed folic acid 1 mg PO DAILY hydroxyzine HCl 25 mg PO TID PRN lancets (FreeStyle Lancets) Test blood sugar TID lisinopril 5 mg PO DAILY metformin 1,000 mg (2 x 500 mg) PO BID metoprolol tartrate 50 mg PO BID 90 days multivitamin 1 tab PO DAILY naltrexone 50 mg PO DAILY ondansetron 4 mg PO Q6H PRN thiamine HCl (vitamin B1) 100 mg PO DAILY zinc gluconate 50 mg PO DAILY HPI Comments Details: Kiko is a pleasant male. He is a patient of Dr. Mauricio. He seen for the following urologic conditions - lower urinary tract symptoms with incomplete emptying - erectile dysfunction Interval surveillance PVR 0 cc PSA 07/18 1.0 T 98 Plan for evaluation of low T Has lost weight Remains on metformin plus Trulicity for diabetes Initiate tadalafil His continue to lose weight Improving diabetic control Daughter to electrician supervisor airplane on [place] Lower urinary tract symptoms Current visit is for - further symptom evaluation of, further evaluation of, post - prostate procedure Current treatment includes - none Prior treatments include - 07/15 GreenLight laser prostatectomy Prostate Symptom Score - moderate symptom score with bother 3 Symptoms include - 04/16 weak stream, incomplete emptying, frequency which are progressing - 05/17 weak stream, improved nocturia symptoms resolving Results from testing include - cystoscopy 05/16 medium bar short prostate - 05/17 bladder ultrasound prostate 20 g PSA December 2019 1.2 - 11/14 1.6, 08/16 2.1 Associated conditions CAD No CVA No Diabetes yes Elevated PSA No Erectile Dysfunction yes Testing at next visit will include PVR Erectile Dysfunction Daily tadalafil - but has no need PFSH Medical History Rosacea Annual physical exam Persistent atrial fibrillation Orthostatic hypotension Lymphoma Depression Essential hypertension Hyperlipidemia LDL goal <100 Obesity due to excess calories BMI 30.0-30.9,adult DM (diabetes mellitus) ETOH abuse BPH associated with nocturia CAD (coronary artery disease) Long-term current use of intravenous immunoglobulin (IVIG) GERD (gastroesophageal reflux disease) Hypogammaglobulinemia Diabetic eye exam Adjustment disorder PAF (paroxysmal atrial fibrillation) Gout Chronic osteomyelitis Splenic marginal zone b-cell lymphoma EMIL (obstructive sleep apnea) Surgical History Status post below-knee amputation of left lower extremity Osteomyelitis Osteomyelitis History of esophagogastroduodenoscopy (EGD) History of colonoscopy History of bunionectomy History of cardiac cath Family History Father Diabetes Mother Liver cancer Maternal Grandfather CVD (cardiovascular disease) Brother Myocardial infarction Social History Household Members: Spouse and None Housing: House Do you presently have visiting nurse or other home services: No Alcohol intake: former Year quit: 2019 Patient Tobacco Use Status: Never used Tobacco e-Cigarette/Vaping Use: Never Used Advance Directives Date on File: 06/02/23 service: No Current occupational status: employed 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 Cognitive needs: No Hearing needs: No Vision needs: Yes Review of Systems Const Denies chills and Denies fever(s) Card Reports no additional complaints and Denies syncope Resp Denies cough GI Denies abdominal pain and Denies heartburn Reports as per HPI and Denies change in libido Neuro Denies syncope Psych Denies change in libido Endo Denies change in libido Physical Exam Const General: cooperative, healthy appearing, comfortable and no acute distress Orientation/consciousness: patient oriented x3 HEENT Face and sinus: Yes normal facial exam Mouth: moist mucous membranes Neck Neck: Yes normal visual inspection, Yes full ROM and Yes trachea midline Chest Chest palpation & inspection: normal inspection of the chest Resp Effort & Inspection: normal respiratory effort, able to speak in complete sentences and no respiratory distress GI Inspection: Yes normal to inspection Back/Spine/Pelvis Cervical Spine: normal cervical lordosis Thoracic/Lumbar Spine: thoracic and lumbar spine normal to inspection Skin General skin exam: no rashes or lesions noted Neuro General: patient oriented x3, gait normal, tone normal and moves all extremities Extrem General: Yes normal to inspection and Yes capillary refill normal Office Procedures Post Void Residual Post Residual Void Post Void Residual (PVR): [id number] Void Residual by ultrasound Assessment & Plan Assessment & Plan (1) Hypogonadism in male: Code(s): E29.1 - Testicular hypofunction Category: Medical Plan One month follow-up Orders: Orders AMB Post Void Residual by ultrasound Today R33.9 - Retention of urine, unspecified Lutenizing Hormone Today E29.1 - Testicular hypofunction Testosterone, Free/Total Today E29.1 - Testicular hypofunction Sex Hormone Binding Globulin Today E29.1 - Testicular hypofunction Prolactin Today E29.1 - Testicular hypofunction IRON PROFILE Today E29.1 - Testicular hypofunction Estradiol Ultra Sensitive Today E29.1 - Testicular hypofunction Albumin Level Today E29.1 - Testicular hypofunction Follicle Stimulating Hormone Today E29.1 - Testicular hypofunction Medications: New tadalafil 5 mg PO DAILY 90 days 90 tabs 0RF sexual activity E11.69 - Type 2 diabetes mellitus with other specified complication, E29.1 - Testicular hypofunction, N52.1 - Erectile dysfunction due to diseases classified elsewhere Patient Instructions: Imaging studies, laboratory and physical exam results were discussed and reviewed in detail. No major barriers to patient understanding were identified. An opportunity to ask questions regarding the treatment plan was provided. All questions were answered. The patient expressed understanding and agreement with the above treatment plan. The patient is aware they should contact our office by phone for worsening of their current condition or the appearance of new urologic symptoms. Compliance is encouraged with any medications and followup testing that is ordered. It is a privilege to participate in the urologic care of your patient. If you have any questions or concerns regarding treatment for the above conditions, or other urologic issues, please do not hesitate to contact me. The office telephone contact is [phone]. This note is constructed using voice recognition software. While every effort has been made to ensure accuracy high density finishing operator errors may have been included. Yours sincerely, Dr Cordell Montero MD, MON[facility] - Urology Providers of Expert, Compassionate Care for the Genitourinary System Coding Level of Care Code Est Pt Level 4 (80972) Diagnoses Hypogonadism in male E29.1 CPT Codes Post Residual Void - PVR CPT Code: 93431-[id number] Void Residual by ultrasound ([id number])
== END 2023-08-01 10:04 | disposition home or self-care (01) ==
PROVIDERS: Visit Provider Urology
DX: E29.1 Testicular hypofunction (principal)
CPT/HCPCS: 99214

== ENCOUNTER → 2023-08-01 09:21 | Outpatient (BNVA) | payer OTHER, SELFPAY | PROVIDERS: Visit Provider Urology | DX: E29.1 Testicular hypofunction (principal); E11.69 Type 2 diabetes mellitus with other specified complication; N52.1 Erectile dysfunction due to diseases classified elsewhere | CPT/HCPCS: 51798; 99212 ==

== ENCOUNTER 2023-08-03 10:47 | Outpatient (REF) | payer OTHER, SELFPAY ==
[2023-08-03 12:16] LABS: Albumin Level 4.2 g/dL (3.5-5.0); Iron 60 mcg/dL (45-160); Percent Iron Saturation 23 % (15-50); Total Iron Binding Capacity 259 mcg/dL (228-428); Unsaturated Iron Binding 199 ug/dL
[2023-08-04 17:03] LABS: Lutenizing Hormone 2.2 mIU/mL (1.6-15.2); Prolactin 20.7 ng/mL (2.0-18.0); Sex Hormone Binding Globulin 54 nmol/L (22-77)
[2023-08-08 13:14] LABS: Testosterone, Free 35.6 pg/mL (35.0-155.0); Testosterone, Total 315 ng/dL (250-1100)
[2023-08-09 00:53] LABS: Estradiol Ultra Sensitive 28 pg/mL (< OR = 29)
== END 2023-08-03 10:48 | disposition home or self-care (01) ==
LOC: HO.10HDL 10:47
PROVIDERS: Visit Provider Urology
DX: E29.1 Testicular hypofunction (principal)
CPT/HCPCS: 36415; 82040; 82670; 83001; 83002; 83540; 84146; 84270; 84402; 84403

== ENCOUNTER 2023-08-23 13:59 | Outpatient (AMB) | payer OTHER, SELFPAY ==
--- NOTE | 2023-08-23 14:19 | MHC.OFFVIS ---
Vital Signs 08/23/23 14:20 Height 6 ft 2 in Weight 205 lb 0.478 oz BMI 26.3 BP 126/80 Blood Pressure Location Lt brachial Position Sitting Pulse 59 Intake Visit Reasons: 1 yr fu/ preop ortho Intake Note: 1 year follow-up and pre-op ortho c/o little dizzy today Cutter Hot Knife Required: No Allergies vancomycin [VANCOMYCIN] Allergy (Severe, Verified 08/01/23 09:28) ANGIOEDEMA Sulfa (Sulfonamide Antibiotics) Allergy (Intermediate, Verified 08/01/23 09:28) Rash sulfamethoxazole [From Bactrim] Allergy (Verified 08/01/23 09:28) rash trimethoprim [From Bactrim] Allergy (Verified 08/01/23 09:28) Rash Medication List - Last Reconciled 08/23/23 by Niko Godoy MD allopurinol 200 mg PO DAILY ascorbic acid (vitamin C) (Vitamin C) 500 mg PO DAILY atorvastatin 20 mg PO BEDTIME 30 days blood pressure test kit-medium As directed to monitor BP at home blood sugar diagnostic (FreeStyle Lite Strips) Test blood sugar TID blood-glucose meter (FreeStyle Lite Meter kit) As directed 3x/day bupropion HCl XL 150 mg PO DAILY buspirone 7.5 mg PO BID dabigatran etexilate (Pradaxa) 150 mg PO BID 90 days dapagliflozin propanediol (Farxiga) 10 mg PO DAILY digoxin 125 mcg PO DAILY 30 days diltiazem HCl ER 180 mg PO DAILY 30 days dulaglutide (Trulicity) 3 mg subcut WE duloxetine 60 mg PO DAILY flash glucose sensor (FreeStyle Erika 14 Day Sensor kit) As directed folic acid 1 mg PO DAILY hydroxyzine HCl 25 mg PO TID PRN lancets (FreeStyle Lancets) Test blood sugar TID lisinopril 5 mg PO DAILY metformin 1,000 mg (2 x 500 mg) PO BID metoprolol tartrate 50 mg PO BID 90 days multivitamin 1 tab PO DAILY naltrexone 50 mg PO DAILY ondansetron 4 mg PO Q6H PRN tadalafil 5 mg PO DAILY 90 days thiamine HCl (vitamin B1) 100 mg PO DAILY zinc gluconate 50 mg PO DAILY HPI Comments Details: Ashley returns for follow-up regarding various cardiac issues including atrial fibrillation, coronary artery disease. He also needs preoperative evaluation for shoulder surgery. Overall, he states he feels fine. He does not really have any cardiac symptoms like angina or shortness of breath or in fact anything cardiac related. Over the last few years, he has had various other medical issues including lymphoma, thrombocytopenia, splenectomy, diabetes leg wounds, left BKA among others. He is able to ambulate with prosthesis. Otherwise, no specific concerns. [facility] Medical History Rosacea Annual physical exam Persistent atrial fibrillation Orthostatic hypotension Lymphoma Depression Essential hypertension Hyperlipidemia LDL goal <100 Obesity due to excess calories BMI 30.0-30.9,adult DM (diabetes mellitus) ETOH abuse BPH associated with nocturia CAD (coronary artery disease) Long-term current use of intravenous immunoglobulin (IVIG) GERD (gastroesophageal reflux disease) Hypogammaglobulinemia Diabetic eye exam Adjustment disorder PAF (paroxysmal atrial fibrillation) Gout Chronic osteomyelitis Splenic marginal zone b-cell lymphoma EMIL (obstructive sleep apnea) Surgical History Status post below-knee amputation of left lower extremity Osteomyelitis Osteomyelitis History of esophagogastroduodenoscopy (EGD) History of colonoscopy History of bunionectomy History of cardiac cath Family History Father Diabetes Mother Liver cancer Maternal Grandfather CVD (cardiovascular disease) Brother Myocardial infarction Social History Household Members: Spouse and None Housing: House Do you presently have visiting nurse or other home services: No Alcohol intake: former Year quit: 2019 Patient Tobacco Use Status: Never used Tobacco e-Cigarette/Vaping Use: Never Used Advance Directives Date on File: 06/02/23 service: No Current occupational status: employed 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 Cognitive needs: No Hearing needs: No Vision needs: Yes Review of Systems Const Denies chills, Denies fatigue, Denies fever(s), Denies frequent falls, Denies weakness, Denies weight gain and Denies weight loss ENT Denies dizziness Card Denies chest pain, Denies leg edema, Denies lightheadedness, Denies palpitations, Denies dyspnea, Denies dyspnea on exertion, Denies orthopnea and Denies other (loss of consciousness) Resp Denies cough, Denies dyspnea and Denies dyspnea on exertion GI Denies hematochezia and Denies change in stool character Musc Denies abnormal gait, Denies muscle weakness, Denies numbness, Denies radiating pain into limb and Denies tingling Neuro Denies abnormal gait, Denies dizziness, Denies frequent falls, Denies numbness, Denies tingling and Denies weakness Endo Denies fatigue and Denies palpitations Physical Exam Vital Signs: Last Vital Signs Pulse 59 08/23/23 14:20 BP 126/80 08/23/23 14:20 BMI result Body Mass Index 26.3 Const General: comfortable and no acute distress Orientation/consciousness: patient oriented x3 HEENT Other: Unremarkable Head: Yes normal to inspection Neck Neck: Yes normal visual inspection Chest Chest palpation & inspection: normal inspection of the chest Resp Auscultation: clear to auscultation bilaterally Cardio Palpation: normal PMI Heart sounds: S1 normal heart sound present, S2 normal heart sound present, no gallops, no murmurs and no rubs GI Palpation (GI): Soft to palpation Back/Spine/Pelvis Other: unremarkable Skin General skin exam: no rashes or lesions noted Neuro General: patient oriented x3 Extrem General: Yes normal to inspection Psych Mental Status: mental status grossly normal Office Procedures EKG Details: EKG with atrial fibrillation at a rate of 59/Min; cannot exclude old anteroseptal infarct and nonspecific ST-T changes. [id number], Complete Assessment & Plan Assessment & Plan (1) Persistent atrial fibrillation: Code(s): I48.19 - Other persistent atrial fibrillation Category: Medical Plan: Well controlled on metoprolol, diltiazem and digoxin. Continue anticoagulation. Check digoxin levels. (2) Atherosclerotic cardiovascular disease: Code(s): I25.10 - Atherosclerotic heart disease of [place] coronary artery without angina pectoris Category: Medical Plan: In the past, chest CT had shown coronary artery calcifications. Myocardial perfusion imaging had shown inferior and apical ischemia. However, cardiac catheterization without any significant coronary disease. No obstructive lesions. Clinically, absolutely no symptoms like angina. Remains on statins. (3) Preoperative cardiovascular examination: Code(s): Z01.810 - Encounter for preprocedural cardiovascular examination Category: Medical Plan: Intermediate cardiac risk for shoulder surgery. May proceed. Orders: Orders CA echo transthoracic complete 1 Year I48.19 - Other persistent atrial fibrillation Digoxin Today I48.19 - Other persistent atrial fibrillation Medications: Refilled metoprolol tartrate 50 mg PO BID 180 tabs 3RF 90 days dabigatran etexilate (Pradaxa) 150 mg PO BID 180 caps 3RF 90 days Coding Level of Care Code Est Pt Level 4 (36936) Diagnoses Persistent atrial fibrillation I48.19 Atherosclerotic cardiovascular disease I25.10 Preoperative cardiovascular examination Z01.810 CPT Codes EKG - CPT: 48929-[id number], Complete ([id number])
[2023-08-23 14:20] VITALS: BP 126/80; PULSE 59; BMI 26.3
== END 2023-08-23 15:10 | disposition home or self-care (01) ==
PROVIDERS: PCP Internal Medicine; Visit Provider Internal Medicine
DX: I48.19 Other persistent atrial fibrillation (principal); I25.10 Atherosclerotic heart disease of native coronary artery without angina pectoris; Z01.810 Encounter for preprocedural cardiovascular examination
CPT/HCPCS: 93010; 99213; 99214

== ENCOUNTER → 2023-08-23 13:59 | Outpatient (BNVA) | payer OTHER, SELFPAY | PROVIDERS: PCP Internal Medicine; Visit Provider Internal Medicine | DX: Z01.810 Encounter for preprocedural cardiovascular examination (principal); I25.10 Atherosclerotic heart disease of native coronary artery without angina pectoris; I48.19 Other persistent atrial fibrillation | CPT/HCPCS: 93005; 99212 ==

== ENCOUNTER 2023-08-31 09:13 | Outpatient (AMB) | payer OTHER, SELFPAY ==
--- NOTE | 2023-08-31 09:14 | A.OFFVIS_ITS ---
Intake Visit Reasons: 1m/labs(set) Intake Note: Patient is Present for Telephone Follow Up For Urology Med: Tadalafil Antibiotic Allergy:Sulfa, Vancomycin, Trimethroprim Blood Thinner:None Allergies vancomycin [VANCOMYCIN] Allergy (Severe, Verified 08/31/23 09:14) ANGIOEDEMA Sulfa (Sulfonamide Antibiotics) Allergy (Intermediate, Verified 08/31/23 09:14) Rash sulfamethoxazole [From Bactrim] Allergy (Verified 08/31/23 09:14) rash trimethoprim [From Bactrim] Allergy (Verified 08/31/23 09:14) Rash HPI Comments Details: Kiko is a pleasant male. He is a patient of Dr. Mauricio. He seen for the following urologic conditions - lower urinary tract symptoms with incomplete emptying - erectile dysfunction Telemedicine Evaluation 15 min Consultation Guomai Reinier Video Interval surveillance PVR 0 cc PSA 07/18 1.0 T 98, 08/17 T 315 FT 35 Repeat T is below 350 threshold Will start testosterone given diabetic and results from T2DM study Remains on metformin plus Trulicity for diabetes Continue Tadlafil His continue to lose weight Improving diabetic control Daughter to diesel electrician on [place] Hypogonadism Low T on 2 occasions Has additional symptoms including lack of energy, lack of spontaneous erections Lower urinary tract symptoms Current visit is for - further symptom evaluation of, further evaluation of, post - prostate procedure Current treatment includes - none Prior treatments include - 07/15 GreenLight laser prostatectomy Prostate Symptom Score - moderate symptom score with bother 3 Symptoms include - 04/16 weak stream, incomplete emptying, frequency which are progressing - 05/17 weak stream, improved nocturia symptoms resolving Results from testing include - cystoscopy 05/16 medium bar short prostate - 05/17 bladder ultrasound prostate 20 g PSA December 2019 1.2 - 11/14 1.6, 08/16 2.1 Associated conditions CAD No CVA No Diabetes yes Elevated PSA No Erectile Dysfunction yes Testing at next visit will include PVR Erectile Dysfunction Daily tadalafil - but has no need PFSH Medical History Rosacea Annual physical exam Persistent atrial fibrillation Orthostatic hypotension Lymphoma Depression Essential hypertension Hyperlipidemia LDL goal <100 Obesity due to excess calories BMI 30.0-30.9,adult DM (diabetes mellitus) ETOH abuse BPH associated with nocturia CAD (coronary artery disease) Long-term current use of intravenous immunoglobulin (IVIG) GERD (gastroesophageal reflux disease) Hypogammaglobulinemia Diabetic eye exam Adjustment disorder PAF (paroxysmal atrial fibrillation) Gout Chronic osteomyelitis Splenic marginal zone b-cell lymphoma EMIL (obstructive sleep apnea) Surgical History Status post below-knee amputation of left lower extremity Osteomyelitis Osteomyelitis History of esophagogastroduodenoscopy (EGD) History of colonoscopy History of bunionectomy History of cardiac cath Family History Father Diabetes Mother Liver cancer Maternal Grandfather CVD (cardiovascular disease) Brother Myocardial infarction Social History Household Members: Spouse and None Housing: House Do you presently have visiting nurse or other home services: No Alcohol intake: former Year quit: 2019 Patient Tobacco Use Status: Never used Tobacco e-Cigarette/Vaping Use: Never Used Advance Directives Date on File: 06/02/23 service: No Current occupational status: employed 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 Cognitive needs: No Hearing needs: No Vision needs: Yes Review of Systems Const All systems reviewed & are unremarkable except as noted in HPI and below Reports no additional complaints Resp Reports no additional complaints GI Reports no additional complaints Reports as per HPI Musc Reports no additional complaints Physical Exam Telemedicine evaluation Appropriate responses Regular breathing rate and rhythm HEENT Head: Yes normal to inspection Ears: hearing grossly normal bilaterally Eyes General: appearance normal, both eyes and all related structures Neck Neck: Yes normal visual inspection Chest Chest palpation & inspection: normal inspection of the chest Resp Effort & Inspection: normal respiratory effort and able to speak in complete sentences Telehealth Telehealth Location of provider rendering services: practice address Location of patient: address on file Patient Identification confirmed using: Name, : Yes Telehealth method: voice only Patient verbally consented to treatment: Yes Patient verbally consented to billing insurance company: Yes Patient informed of any privacy concerns related to visit: Yes Assessment & Plan Assessment & Plan (1) Hypogonadism in male: Code(s): E29.1 - Testicular hypofunction Category: Medical Plan initiate testosterone Orders: Orders Testosterone, Total 2 Months E29.1 - Testicular hypofunction Liver Panel Today E29.1 - Testicular hypofunction Medications: New testosterone apply 2 pumps over max area - alternate shoulders on alternate days 2 pumps topical DAILY 30 days 75 grams 2RF E29.1 - Testicular hypofunction, R79.89 - Other specified abnormal findings of blood chemistry Patient Instructions: Imaging studies, laboratory and physical exam results were discussed and reviewed in detail. No major barriers to patient understanding were identified. An opportunity to ask questions regarding the treatment plan was provided. All questions were answered. The patient expressed understanding and agreement with the above treatment plan. The patient is aware they should contact our office by phone for worsening of their current condition or the appearance of new urologic symptoms. Compliance is encouraged with any medications and followup testing that is ordered. It is a privilege to participate in the urologic care of your patient. If you have any questions or concerns regarding treatment for the above conditions, or other urologic issues, please do not hesitate to contact me. The office telephone contact is [phone]. This note is constructed using voice recognition software. While every effort has been made to ensure accuracy manager assessment errors may have been included. Yours sincerely, Dr Cordell Montero MD, [facility] - Urology Providers of Expert, Compassionate Care for the Genitourinary System Coding Level of Care Code Tele Est Pt Level 4 (92937) Diagnoses Hypogonadism in male E29.1
== END 2023-08-31 09:41 | disposition home or self-care (01) ==
LOC: HO.HUSH 09:13
PROVIDERS: PCP Internal Medicine; Visit Provider Urology
DX: E29.1 Testicular hypofunction (principal)
CPT/HCPCS: 99442

== ENCOUNTER → 2023-08-31 09:13 | Outpatient (BNVA) | payer OTHER, SELFPAY | PROVIDERS: PCP Internal Medicine; Visit Provider Urology ==

== ENCOUNTER 2023-10-04 23:57 | Emergency (ER) | payer OTHER, SELFPAY ==
[2023-10-05 00:01] VITALS: BP 172/80; PULSE 104; O2SAT 99
[2023-10-05 00:06] VITALS: BP 180/84; PULSE 80; RESP 16; TEMP 36.1; O2SAT 99; BMI 25.8
[2023-10-05 00:15] LABS: Glucose, Whole Blood 66 mg/dL (60-115)
[2023-10-05 01:22] LABS: MANUAL DIFF FLAG NO
[2023-10-05 01:29] LABS: Basophils Absolute Auto 0.1 X10*3/uL (0.0-0.2); Basophils Percent Auto 2.4 % (0-2); Eosinophils Absolute Auto 0.3 X10*3/uL (0.0-0.4); Eosinophils Percent Auto 4.8 % (0-4); Hematocrit 43.5 % (42.0-52.0); Hemoglobin 15.3 g/dl (14.0-18.0); Imm Gran Abs Auto 0.02 X10*3/uL (0.00-0.03); Imm Gran Pct Auto 0.3 % (0.0-0.4); Lymphocytes Absolute Auto 2.6 X10*3/uL (1.2-4.9); Lymphocytes Percent Auto 44.1 % (20-40); Mean Corpuscular HGB Conc 35.2 g/dl (31.0-36.0); Mean Corpuscular Volume 88.2 fL (80.0-98.0); Monocytes Absolute Auto 0.6 X10*3/uL (0.1-1.2); Monocytes Percent Auto 10.6 % (2-11); NRBC Pct Auto 0.5 /100WBC (0.0-0.2); Neutrophils Absolute Auto 2.2 x10*3/uL (2.0-8.3); Neutrophils Percent Auto 37.8 % (45-73); Platelet Count 326 X10*3/uL (160-400); Red Blood Count 4.93 X10*6/uL (4.60-5.80); Red Cell Distribution Width 20.3 % (11.0-16.0); White Blood Count 5.9 X10*3/uL (4.8-10.8)
[2023-10-05 01:41] LABS: Alanine Aminotransferase 26 U/L (0-40); Albumin Level 4.5 g/dL (3.5-5.0); Alkaline Phosphatase 159 U/L (39-117); Anion Gap 21 (12-20); Aspartate Amino Transferase 38 U/L (5-37); Bilirubin Total 0.6 mg/dL (0.0-1.0); Blood Urea Nitrogen 12 mg/dL (9-16); Calcium 9.4 mg/dL (8.4-10.2); Carbon Dioxide 27 mmol/L (22-29); Chloride 107 mmol/L (96-108); Creatinine Clr Calc Pharmacy 100.9; Estimated Glomerular Filt Rate > 60; Ethanol 299 mg/dL; Glucose Random 125 mg/dL (60-115); Potassium 4.3 mmol/L (3.3-5.1); Sodium 151 mmol/L (135-145); Total Protein 7.1 g/dL (6.5-8.0)
[2023-10-05 01:59] LABS: Acetaminophen LAB < 3 mcg/mL (<30); Salicylate < 5.0 mg/dL (15-30)
[2023-10-05 02:24] VITALS: BP 158/83; PULSE 94; RESP 20; TEMP 37.3; O2SAT 98
[2023-10-05 06:29] LABS: Glucose, Whole Blood 72 mg/dL (60-115)
--- NOTE | 2023-10-05 06:48 | ED.PSYCH ---
HPI - Psych General Chief Complaint: Psychiatric Symptoms Stated Complaint: etoh si Time Seen by Provider: 10/05/23 04:16 Source: patient Mode of arrival: EMS Limitations: other (Alcohol intoxication) History of Present Illness ED Provider: Dr. Atif Barbosa HPI Narrative: 68-year-old male with a history of depression, hypertension, hyperlipidemia, diabetes mellitus, alcohol use disorder, coronary disease, GERD, paroxysmal atrial fibrillation, splenic marginal zone B-cell lymphoma status post appendectomy who presents emergency department for evaluation of acute intoxication and depression. Patient was initially belligerent but then calm down. At the time my evaluation the patient states he was depressed but does have counseling. He denied being suicidal or homicidal. He states that he has several life stressors. He states his after 40 years of marriage is him. He states he is estranged from his son and daughter and they will not talk to him. He also states he has not been able to wear his left leg prosthesis secondary to a nonhealing wound and he also has nonhealing wounds on his right lower extremity. 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 He states that he has been binge drinking on alcohol in his been drinking large amounts of vodka per day. He states he did drink alcohol prior to coming to the emergency department. Related Data Home Medications ?Medication ?Instructions ?Recorded ?Confirmed duloxetine 60 mg capsule,delayed 60 mg PO DAILY 12/21/19 10/06/23 release multivitamin 1 tab PO DAILY 02/27/20 10/06/23 allopurinol 100 mg tablet 200 mg PO DAILY 02/08/21 10/06/23 naltrexone 50 mg tablet 50 mg PO DAILY Alcohol Withdrawal 08/24/22 10/06/23 bupropion HCl 150 mg 24 hr tablet, 150 mg PO DAILY 06/01/23 10/06/23 extended release dulaglutide 3 mg/0.5 mL 3 mg subcut WE 06/01/23 10/06/23 [facility] hydroxyzine HCl 25 mg tablet 25 mg PO TID PRN Anxiety 06/01/23 10/06/23 buspirone 10 mg tablet 10 mg PO BID 10/06/23 10/06/23 ciclopirox 0.77 % topical cream 1 appl topical BID 10/06/23 10/06/23 Previous Rx's ?Medication ?Instructions ?Recorded blood-glucose meter (FreeStyle #1 ea 04/23/20 Lite Meter kit) blood sugar diagnostic (FreeStyle #300 ea 02/11/21 Lite Strips) lancets 28 gauge (FreeStyle #300 ea 02/11/21 Lancets) zinc gluconate 50 mg tablet 50 mg PO DAILY #90 tabs 05/03/22 thiamine HCl (vitamin B1) 100 mg 100 mg PO DAILY #90 tabs 07/12/22 tablet flash glucose sensor (FreeStyle #1 ea 07/14/22 Erika 14 Day Sensor kit) blood pressure test kit-medium #1 ea 08/03/22 ascorbic acid (vitamin C) 500 mg 500 mg PO DAILY #90 tabs 10/17/22 tablet (Vitamin C) metformin 500 mg tablet 1,000 mg (2 x 500 mg) PO BID #180 12/28/22 tabs lisinopril 5 mg tablet 5 mg PO DAILY #90 tabs 04/24/23 folic acid 1 mg tablet 1 mg PO DAILY #90 tabs 05/17/23 dapagliflozin propanediol 10 mg 10 mg PO DAILY #90 tabs 06/15/23 tablet (Farxiga) atorvastatin 20 mg tablet 20 mg PO BEDTIME 30 days #30 tabs 08/30/23 dabigatran etexilate 150 mg 150 mg PO BID 90 days #180 caps 08/30/23 capsule (Pradaxa) digoxin 125 mcg (0.125 mg) tablet 125 mcg PO DAILY 90 days #90 caps 08/30/23 diltiazem HCl 180 mg 180 mg PO DAILY 90 days #90 caps 08/30/23 capsule,extended release 24 hr, controlled metoprolol tartrate 50 mg tablet 50 mg PO BID 90 days #180 tabs 08/30/23 commode (bedside commode) #1 ea 09/29/23 wheelchair-16 inch wide with #1 ea 09/29/23 removable footrests Allergies Allergy/AdvReac Type Severity Reaction Status Date / Time vancomycin [VANCOMYCIN] Allergy Severe ANGIOEDEMA Verified 10/06/23 13:46 Sulfa (Sulfonamide Allergy Intermediate Rash Verified 10/06/23 13:46 Antibiotics) sulfamethoxazole Allergy rash Verified 10/06/23 13:46 [From Bactrim] trimethoprim [From Bactrim] Allergy Rash Verified 10/06/23 13:46 Review of Systems Review of Systems: Yes all other systems are reviewed and are negative [facility] Past Medical History [facility] Narrative: Social history: He states that he lives at home alone. He denies tobacco use. He does admit to binge drinking. He denies drug use. Medical History Rosacea Annual physical exam Persistent atrial fibrillation Orthostatic hypotension Lymphoma Depression Essential hypertension Hyperlipidemia LDL goal <100 Obesity due to excess calories BMI 30.0-30.9,adult DM (diabetes mellitus) ETOH abuse BPH associated with nocturia CAD (coronary artery disease) Long-term current use of intravenous immunoglobulin (IVIG) GERD (gastroesophageal reflux disease) Hypogammaglobulinemia Diabetic eye exam Adjustment disorder PAF (paroxysmal atrial fibrillation) Gout Chronic osteomyelitis Splenic marginal zone b-cell lymphoma EMIL (obstructive sleep apnea) Surgical History Status post below-knee amputation of left lower extremity Osteomyelitis Osteomyelitis History of esophagogastroduodenoscopy (EGD) History of colonoscopy History of bunionectomy History of cardiac cath Family History Family History Father Diabetes Mother Liver cancer Maternal Grandfather CVD (cardiovascular disease) Brother Myocardial infarction Social History Social History Household Members: None Housing: House Do you presently have visiting nurse or other home services: Yes Alcohol intake: former Year quit: 2020 Patient Tobacco Use Status: Never used Tobacco e-Cigarette/Vaping Use: Never Used Second Hand Smoke Exposure: No Advance Directives Date on File: 06/02/23 service: No Current occupational status: employed 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 On initial presentation the patient was acutely intoxicated and was agitated and belligerent but did calm down. Head: Normocephalic, atraumatic EENT: PERRL, Lids normal, sclera normal, conjunctiva normal, nose normal , ears normal, throat without erythema or exudates Neck: Supple, no adenopathy Lung: breath sounds symmetric, no wheezing, rales or rhonchi Chest: symmetric movement, nontender Heart: regular rate and rhythm, normal S1, S2 no murmurs or rubs Abdomen: soft, non-tender, nondistended, normal bowel sounds Back: no vertebral tenderness, no CVAT Extremities: Left [id number] amputation there is a cicatrix on the anterior aspect of the stump with no evidence of infection or drainage. Patient's right lower extremity does have chronic nonhealing wounds to the pretibial area with no evidence for cellulitis. Neuro: Awake, alert, oriented, normal speech, cranial nerves intact, moves all extremities symmetrically Medical Decision Making Medical Decision Making [facility] Narrative: Differential diagnosis: ?Includes but is not limited to depression, suicidal ideation, anxiety, alcohol intoxication, polysubstance use, anemia, electrolyte abnormalities Following evaluation was ordered: CBC, CMP, urine drug screen, alcohol level, acetaminophen, salicylate level, ethanol level Course: 06:58 My interpretation patient's laboratory evaluation as follows: Elevated sodium of 151-consistent with dehydration. Elevated AST 38. Elevated glucose 125. Alcohol level was elevated 299. Patient's presentation is consistent with acute alcohol intoxication, at this time, he is no longer making suicidal statements. He states that he feels safe to go home therefore he was discharged. He does have outpatient counseling. The patient was advised to follow-up with his PCP, and his therapist. He does not want alcohol counseling or detox at this time Lab Data [facility] Lab Attestation statement: I reviewed the patient's lab results. 10/05/23 01:18 10/05/23 01:18 Labs: Lab Results 10/05/23 10/05/23 10/05/23 Range/Units 00:11 00:46 01:18 WBC 5.9 (4.8-10.8) X10*3/uL RBC 4.93 (4.60-5.80) X10*6/uL Hgb 15.3 (14.0-18.0) g/dl Hct 43.5 (42.0-52.0) % MCV 88.2 (80.0-98.0) fL MCH 31.0 (27.0-33.0) pg MCHC 35.2 (31.0-36.0) g/dl RDW 20.3 H (11.0-16.0) % Plt Count 326 (160-400) X10*3/uL MPV 9.0 L (9.4-12.4) fL Immature Gran % (Auto) 0.3 (0.0-0.4) % Neut % (Auto) 37.8 L (45-73) % Lymph % (Auto) 44.1 H (20-40) % Stanley % (Auto) 10.6 (2-11) % Eos % (Auto) 4.8 H (0-4) % Baso % (Auto) 2.4 H (0-2) % Lymph # (Auto) 2.6 (1.2-4.9) X10*3/uL Stanley # (Auto) 0.6 (0.1-1.2) X10*3/uL Eos # (Auto) 0.3 (0.0-0.4) X10*3/uL Baso # (Auto) 0.1 (0.0-0.2) X10*3/uL Abs Immat Gran (auto) 0.02 (0.00-0.03) X10*3/uL Absolute Neuts (auto) 2.2 (2.0-8.3) x10*3/uL Absolute Nucleated RBC 0.030 H (0.0-0.012) X10*3/uL Nucleated RBC % (auto) 0.5 H (0.0-0.2) /100WBC Sodium 151 H (135-145) mmol/L Potassium 4.3 (3.3-5.1) mmol/L Chloride 107 (96-108) mmol/L Carbon Dioxide 27 (22-29) mmol/L Anion Gap 21 H (12-20) BUN 12 (9-16) mg/dL Creatinine 0.79 (0.5-1.4) mg/dL Estim Creat Clear Calc 100.9 Estimated GFR > 60 POC Glucose 66 72 (60-115) mg/dL Random Glucose 125 H (60-115) mg/dL Calcium 9.4 (8.4-10.2) mg/dL Total Bilirubin 0.6 (0.0-1.0) mg/dL AST 38 H (5-37) U/L ALT 26 (0-40) U/L Alkaline Phosphatase 159 H (39-117) U/L Total Protein 7.1 (6.5-8.0) g/dL Albumin 4.5 (3.5-5.0) g/dL Salicylates < 5.0 L (15-30) mg/dL Acetaminophen < 3 (<30) mcg/mL Ethyl Alcohol 299 mg/dL Discharge Plan Discharge Clinical Impression: Acute alcohol intoxication Patient Disposition: Home, Self-Care Additional Instructions: Your blood work was normal Your alcohol level was elevated at 299, the legal limit of intoxication is 80. Continue taking medications as prescribed. Follow-up with your doctor in 2 days. Please return to the emergency department if your symptoms get worse or if you develop any symptoms that are concerning to you. Prescriptions: No Action (DME) blood-glucose meter [FreeStyle Lite Meter] Kit See Rx Instructions .ROUTE .MEDSUPPLY Qty: 1 0RF Rx Instructions: As directed 3x/day (DME) FreeStyle Lite Strips Strip See Rx Instructions .Route Qty: 300 3RF Rx Instructions: Test blood sugar TID (DME) lancets [FreeStyle Lancets] 28 gauge misc See Rx Instructions .Route Qty: 300 3RF Rx Instructions: Test blood sugar TID zinc gluconate 50 mg tablet 50 mg PO DAILY Qty: 90 3RF thiamine HCl (vitamin B1) 100 mg tablet 100 mg PO DAILY Qty: 90 3RF (DME) blood pressure test kit-medium Kit See Rx Instructions .Route Qty: 1 0RF Rx Instructions: As directed to monitor BP at home ascorbic acid (vitamin C) [Vitamin C] 500 mg tablet 500 mg PO DAILY Qty: 90 3RF metformin 500 mg tablet 1,000 mg PO BID Qty: 180 3RF folic acid 1 mg tablet 1 mg PO DAILY Qty: 90 3RF Farxiga 10 mg tablet 10 mg PO DAILY Qty: 90 1RF dabigatran etexilate [Pradaxa] 150 mg capsule 150 mg PO BID 90 Days Qty: 180 3RF metoprolol tartrate 50 mg tablet 50 mg PO BID 90 Days Qty: 180 3RF digoxin 125 mcg (0.125 mg) tablet 125 mcg PO DAILY 90 Days Qty: 90 3RF diltiazem HCl 180 mg capsule,ext.rel 24h degradable 180 mg PO DAILY 90 Days Qty: 90 3RF atorvastatin 20 mg tablet 20 mg PO BEDTIME 30 Days Qty: 30 3RF (DME) bedside commode Kit See Rx Instructions .Route Qty: 1 0RF Rx Instructions: As directed (DME) wheelchair-16 inch wide with removable footrests 16 inch wide See Rx Instructions .Route .MEDSUPPLY Qty: 1 0RF Rx Instructions: As directed ciclopirox 0.77 % cream 1 appl topical BID buspirone 10 mg Tablet 10 mg PO BID hydroxyzine HCl 25 mg tablet 25 mg PO TID PRN (Reason: Anxiety) bupropion HCl 150 mg tablet extended release 24 hr 150 mg PO DAILY Trulicity 3 mg/0.5 mL pen injector 3 mg subcut WE allopurinol 100 mg tablet 200 mg PO DAILY (DME) FreeStyle Erika 14 Day Sensor Kit See Rx Instructions .Route Qty: 1 4RF Rx Instructions: As directed lisinopril 5 mg tablet 5 mg PO DAILY Qty: 90 2RF multivitamin Tablet 1 tab PO DAILY duloxetine 60 mg capsule,delayed release(DR/EC) 60 mg PO DAILY naltrexone 50 mg tablet 50 mg PO DAILY Interventions: [place]-Suicide Risk Severity Scale Last Done: 10/05/23 06:27 ED Discharge Assessment Last Done: 10/05/23 09:22 Discharge Date/Time: 10/05/23 09:23 Print Language: Azerbaijani
[2023-10-05 06:56] VITALS: BP 194/107; PULSE 111; RESP 20; TEMP 36.6; O2SAT 97
--- NOTE | 2023-10-05 09:20 | PC.NURSE ---
pt denies SI/HI this morning, declined CARE team services, provider aware of elevated bp, plan to d/c w pt to resume home medications. Pt requesting d/c to waiting room to coordinate transport - pt BKA and house was locked by PD/EMS prior to transport and pt doesn't have keys so unable to transport pt via EMS, pt agreeable w plan.
[2023-10-05 09:22] VITALS: BP 194/107; PULSE 111; RESP 20; TEMP 36.6; O2SAT 97
== END 2023-10-05 09:23 | disposition home or self-care (01) ==
PROVIDERS: Emergency Provider Emergency Medicine Emergency Medical Services
DX: F10.120 Alcohol abuse with intoxication, uncomplicated (principal); Y90.8 Blood alcohol level of 240 mg/100 ml or more; F32.A Depression, unspecified; E11.9 Type 2 diabetes mellitus without complications; I10 Essential (primary) hypertension; Z89.512 Acquired absence of left leg below knee; Z79.899 Other long term (current) drug therapy; Z79.85 Long-term (current) use of injectable non-insulin antidiabetic drugs
CPT/HCPCS: 36415; 80053; 80143; 80179; 80307; 82947; 85025; 99285

== ENCOUNTER 2023-10-06 13:39 | Inpatient (IN) | payer OTHER, SELFPAY ==
--- NOTE | ~2023-10-06 | CT_ITS ---
EXAMINATION: CT HEAD WITHOUT CONTRAST CLINICAL INFORMATION: Mental confusion, hallucinations COMPARISON: CT scan of brain on 06/01/2023 TECHNIQUE: Contiguous axial imaging was performed from the skull base to vertex without intravenous administration of contrast. This CT examination was performed using dose optimization techniques as appropriate, variously including the following: *Automated exposure control *Adjustment of mA and/or kV according to patient size (this includes techniques or standardized protocols for targeted exams where dose is matched to indication/reason for exam; i.e. extremities or head) *Use of iterative reconstruction technique DLP: 780 mGy-cm FINDINGS: Ventricles, sulci and cisterns are mildly dilated. Bilateral frontal periventricular white matters show decrease in attenuation. There is no midline shift, no abnormal intra- or extra- axial fluid accumulation. Francis and white matter differentiation is normal. Physiological calcifications are seen in lateral medial basal ganglia. Bone window images show no evidence of skull fracture. CT/CT head/brain wo IV con IMPRESSION: 1. Unchanged mild age related cerebral atrophy, bilateral frontal periventricular ischemic white matter disease compatible with microangiopathy. 2. Unchanged bilateral medial basal ganglia physiological calcifications. No intracranial hemorrhage or skull fracture is seen. 3. No evidence of space occupying lesion could be found. 4. The current plain CT scan of the brain shows no diagnostic evidence of acute cerebral infarction.
[2023-10-06 13:43] VITALS: BP 126/81; BP 140/80; PULSE 103; PULSE 90; RESP 18; TEMP 37.1; O2SAT 98; BMI 26.4
[2023-10-06 13:49] VITALS: BP 126/81; PULSE 90; RESP 18; TEMP 37.1; O2SAT 98
--- NOTE | 2023-10-06 13:59 | ECG_ITS ---
Test Reason : WEAKNESS Blood Pressure : / mmHG Vent. Rate : 083 BPM Atrial Rate : 000 BPM P-R Int : 000 ms QRS Dur : 096 ms QT Int : 414 ms P-R-T Axes : 000 -22 -15 degrees QTc Int : 486 ms Atrial fibrillation with a competing junctional pacemaker Low voltage QRS Cannot rule out Anteroseptal infarct (cited on or before 02-MAR-2016) Abnormal ECG When compared with ECG of 01-JUN-2023 12:45, Nonspecific T wave abnormality has replaced inverted T waves in Lateral leads Referred By: Brooke Crowell Electronically Signed By:Lennox Milan
--- NOTE | 2023-10-06 14:02 | ED.GENADULT ---
HPI - General Adult General Chief complaint: General Medical Stated complaint: HIGH BP VISUAL HALLUCINATIONS History of Present Illness HPI narrative: Patient is a 68-year-old male with a history of alcohol abuse. History of atrial fibrillation on Pradaxa history of lymphoma, diabetes. Patient abruptly stop drinking 2 days prior. Complaining of shakiness. Elevated blood pressure at home. Also feeling that he is seeing car tune characters. The car to in character with transverse his house. Going from room to room. Denies any suicidal homicidal ideation. Move all extremities. Sent in for further evaluation. Related Data Home Medications ?Medication ?Instructions ?Recorded ?Confirmed duloxetine 60 mg capsule,delayed 60 mg PO DAILY 12/21/19 09/06/23 release multivitamin 1 tab PO DAILY 02/27/20 09/06/23 allopurinol 100 mg tablet 200 mg PO DAILY 02/08/21 09/06/23 naltrexone 50 mg tablet 50 mg PO DAILY Alcohol Withdrawal 08/24/22 09/06/23 buspirone 7.5 mg tablet 7.5 mg PO BID 04/24/23 09/06/23 bupropion HCl 150 mg 24 hr tablet, 150 mg PO DAILY 06/01/23 09/06/23 extended release dulaglutide 3 mg/0.5 mL 3 mg subcut WE 06/01/23 09/06/23 subcutaneous pen injector (Trulicity) hydroxyzine HCl 25 mg tablet 25 mg PO TID PRN Anxiety 06/01/23 09/06/23 Previous Rx's ?Medication ?Instructions ?Recorded blood-glucose meter (FreeStyle #1 ea 04/23/20 Lite Meter kit) blood sugar diagnostic (FreeStyle #300 ea 02/11/21 Lite Strips) lancets 28 gauge (FreeStyle #300 ea 02/11/21 Lancets) zinc gluconate 50 mg tablet 50 mg PO DAILY #90 tabs 05/03/22 thiamine HCl (vitamin B1) 100 mg 100 mg PO DAILY #90 tabs 07/12/22 tablet flash glucose sensor (FreeStyle #1 ea 07/14/22 Eriak 14 Day Sensor kit) blood pressure test kit-medium #1 ea 08/03/22 ascorbic acid (vitamin C) 500 mg 500 mg PO DAILY #90 tabs 10/17/22 tablet (Vitamin C) metformin 500 mg tablet 1,000 mg (2 x 500 mg) PO BID #180 10/04/23 tabs lisinopril 5 mg tablet 5 mg PO DAILY #90 tabs 04/24/23 folic acid 1 mg tablet 1 mg PO DAILY #90 tabs 05/17/23 ondansetron 4 mg disintegrating 4 mg PO Q6H PRN nausea and 06/02/23 tablet vomiting #14 tabs dapagliflozin propanediol 10 mg 10 mg PO DAILY #90 tabs 06/15/23 tablet (Farxiga) tadalafil 5 mg tablet 5 mg PO DAILY sexual activity 90 08/01/23 days #90 tabs atorvastatin 20 mg tablet 20 mg PO BEDTIME 30 days #30 tabs 08/30/23 dabigatran etexilate 150 mg 150 mg PO BID 90 days #180 caps 08/30/23 capsule (Pradaxa) digoxin 125 mcg (0.125 mg) tablet 125 mcg PO DAILY 90 days #90 caps 08/30/23 diltiazem HCl 180 mg 180 mg PO DAILY 90 days #90 caps 08/30/23 capsule,extended release 24 hr, controlled metoprolol tartrate 50 mg tablet 50 mg PO BID 90 days #180 tabs 08/30/23 testosterone 2 pump topical DAILY 30 days #75 08/31/23 grams commode (bedside commode) #1 ea 09/29/23 wheelchair-16 inch wide with #1 ea 09/29/23 removable footrests Allergies Allergy/AdvReac Type Severity Reaction Status Date / Time vancomycin [VANCOMYCIN] Allergy Severe ANGIOEDEMA Verified 10/06/23 13:46 Sulfa (Sulfonamide Allergy Intermediate Rash Verified 10/06/23 13:46 Antibiotics) sulfamethoxazole Allergy rash Verified 10/06/23 13:46 [From Bactrim] trimethoprim [From Bactrim] Allergy Rash Verified 10/06/23 13:46 Review of Systems Review of Systems: No fever no chills no chest pain or shortness of breath Yes all other systems are reviewed and are negative PMFSH Past Medical History Medical History Rosacea Annual physical exam Persistent atrial fibrillation Orthostatic hypotension Lymphoma Depression Essential hypertension Hyperlipidemia LDL goal <100 Obesity due to excess calories BMI 30.0-30.9,adult DM (diabetes mellitus) ETOH abuse BPH associated with nocturia CAD (coronary artery disease) Long-term current use of intravenous immunoglobulin (IVIG) GERD (gastroesophageal reflux disease) Hypogammaglobulinemia Diabetic eye exam Adjustment disorder PAF (paroxysmal atrial fibrillation) Gout Chronic osteomyelitis Splenic marginal zone b-cell lymphoma EMIL (obstructive sleep apnea) Surgical History Status post below-knee amputation of left lower extremity Osteomyelitis Osteomyelitis History of esophagogastroduodenoscopy (EGD) History of colonoscopy History of bunionectomy History of cardiac cath Family History Family History Father Diabetes Mother Liver cancer Maternal Grandfather CVD (cardiovascular disease) Brother Myocardial infarction Social History Social History Household Members: Spouse and None Housing: House Do you presently have visiting nurse or other home services: No Alcohol intake: former Year quit: 2020 Patient Tobacco Use Status: Never used Tobacco e-Cigarette/Vaping Use: Never Used Advance Directives: Yes Advance Directives on File: Yes Advance Directives Date on File: 06/02/23 Do you have a plan to hurt others: No Plan service: No Current occupational status: employed 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 Oriented X3. No acute distress. Eyes: Pupils equal, round and reactive to light. ENT: Pharynx normal. Neck: Normal inspection. Neck supple. No lymph nodes noted. No crepitus CVS: Normal heart rate and rhythm. Pulses normal. Normal S1 and S2 Respiratory: No respiratory distress. Breath sounds normal. No Wheezing. No rales Abdomen: Soft and nontender. No rigidity. No distention. good BS x4 Skin: Skin warm and dry. Normal skin color. Normal skin turgor. Extremities: Positive for low the knee amputation on the left side. Popliteal pulses intact. Skin intact. Sensation intact. Examination of the right lower extremity showed a lesion in the distal right leg. An ulcer that is approximately 2 cm x 2 cm in size. Superficial. Distal pulses were 2+ at dorsalis pedis sensation intact motor intact Neuro: Oriented X 3. No motor deficit. No sensory deficit. Moving all extermities. No slurred speech Medications Administered Discontinued Medications Generic Name Dose Route Start Last Admin Trade Name Freq PRN Reason Stop Dose Admin Sodium Chloride 500 mls @ 999 mls/hr 10/06/23 14:00 10/06/23 15:50 Ns IV 10/06/23 14:30 Infused .Q31M MADDY Infusion Phenobarbital Sodium 330 mg 10/06/23 15:00 10/06/23 14:38 Phenobarbital Sodium 130 Mg/Ml Im Once IM 10/06/23 15:01 330 mg ONCE ONE Administration Protocol Medical Decision Making Medical Decision Making [facility] Narrative: Patient appears to be in alcohol withdrawal. With active hallucination shakiness. Started on phenobarb and also oral doses. Will have patient get admitted for further evaluation of alcohol withdrawal. Patient's magnesium is low at 1.3 was repleted. Case discussed with the hospitalist team for admission. White count is normal. Electrolytes were okay alcohol is less than 10 CT scan of the head was grossly negative for any acute evidence of bleeding no fracture by my interpretation. Differential Diagnosis Differential Diagnoses: The differential diagnosis associated with the presentation includes Intracranial bleed, alcohol withdrawal Admission/Observation Consideration of admission/observation: Escalation of care including admission/observation considered Consult Healthcare Provider Management of the patient was discussed with: Hospitalist Lab Data [facility] Lab Attestation statement: I reviewed the patient's lab results. 10/06/23 14:17 10/06/23 16:17 Labs: Lab Results 10/06/23 10/06/23 10/06/23 Range/Units 14:17 14:36 16:17 WBC 9.5 (4.8-10.8) X10*3/uL RBC 4.67 (4.60-5.80) X10*6/uL Hgb 14.7 (14.0-18.0) g/dl Hct 41.3 L (42.0-52.0) % MCV 88.4 (80.0-98.0) fL MCH 31.5 (27.0-33.0) pg MCHC 35.6 (31.0-36.0) g/dl RDW 19.3 H (11.0-16.0) % Plt Count 254 (160-400) X10*3/uL MPV 9.4 (9.4-12.4) fL Immature Gran % (Auto) 0.3 (0.0-0.4) % Neut % (Auto) 70.4 (45-73) % Lymph % (Auto) 15.3 L (20-40) % [place] % (Auto) 11.2 H (2-11) % Eos % (Auto) 1.7 (0-4) % Baso % (Auto) 1.1 (0-2) % Lymph # (Auto) 1.5 (1.2-4.9) X10*3/uL [place] # (Auto) 1.1 (0.1-1.2) X10*3/uL Eos # (Auto) 0.2 (0.0-0.4) X10*3/uL Baso # (Auto) 0.1 (0.0-0.2) X10*3/uL Abs Immat Gran (auto) 0.03 (0.00-0.03) X10*3/uL Absolute Neuts (auto) 6.7 (2.0-8.3) x10*3/uL Absolute Nucleated RBC 0.030 H (0.0-0.012) X10*3/uL Nucleated RBC % (auto) 0.3 H (0.0-0.2) /100WBC PT 14.8 H (11.1-13.3) SEC INR 1.2 H (0.9-1.1) Sodium 140 (135-145) mmol/L Potassium 3.7 (3.3-5.1) mmol/L Chloride 100 (96-108) mmol/L Carbon Dioxide 28 (22-29) mmol/L Anion Gap 16 (12-20) BUN 12 (9-16) mg/dL Creatinine 0.78 (0.5-1.4) mg/dL Estim Creat Clear Calc 108.3 Estimated GFR > 60 Random Glucose 83 (60-115) mg/dL Calcium 10.0 D (8.4-10.2) mg/dL Magnesium 1.3 L* (1.6-2.6) mg/dL Total Bilirubin 1.9 H (0.0-1.0) mg/dL Direct Bilirubin 0.4 (0.0-0.5) mg/dL AST 37 (5-37) U/L ALT 23 (0-40) U/L Alkaline Phosphatase 158 H (39-117) U/L Ammonia 33 (13-55) umol/L Total Protein 6.7 (6.5-8.0) g/dL Albumin 4.3 (3.5-5.0) g/dL Ethyl Alcohol < 10 mg/dL Independent Interpretation I performed an independent interpretation of an: EKG (Atrial fibrillation heart rate is 80 QRS QTC normal no acute ST segment elevation) Radiology Impression Discussion of test interpretation with radiology: I have reviewed the radiologist's reading. External Record Review External record reviewed: Inpatient record Chronic Conditions Patient?s care impacted by: Hypertension Atrial fibrillation alcohol abuse Discharge Plan Discharge Clinical Impression: Alcohol withdrawal, Hypomagnesemia Patient Disposition: Admitted As Inpatient Prescriptions: No Action (DME) blood-glucose meter [FreeStyle Lite Meter] Kit See Rx Instructions .ROUTE .MEDSUPPLY Qty: 1 0RF Rx Instructions: As directed 3x/day (DME) FreeStyle Lite Strips Strip See Rx Instructions .Route Qty: 300 3RF Rx Instructions: Test blood sugar TID (DME) lancets [FreeStyle Lancets] 28 gauge misc See Rx Instructions .Route Qty: 300 3RF Rx Instructions: Test blood sugar TID zinc gluconate 50 mg tablet 50 mg PO DAILY Qty: 90 3RF thiamine HCl (vitamin B1) 100 mg tablet 100 mg PO DAILY Qty: 90 3RF (DME) blood pressure test kit-medium Kit See Rx Instructions .Route Qty: 1 0RF Rx Instructions: As directed to monitor BP at home ascorbic acid (vitamin C) [Vitamin C] 500 mg tablet 500 mg PO DAILY Qty: 90 3RF metformin 500 mg tablet 1,000 mg PO BID Qty: 180 3RF folic acid 1 mg tablet 1 mg PO DAILY Qty: 90 3RF Farxiga 10 mg tablet 10 mg PO DAILY Qty: 90 1RF dabigatran etexilate [Pradaxa] 150 mg capsule 150 mg PO BID 90 Days Qty: 180 3RF metoprolol tartrate 50 mg tablet 50 mg PO BID 90 Days Qty: 180 3RF digoxin 125 mcg (0.125 mg) tablet 125 mcg PO DAILY 90 Days Qty: 90 3RF diltiazem HCl 180 mg capsule,ext.rel 24h degradable 180 mg PO DAILY 90 Days Qty: 90 3RF atorvastatin 20 mg tablet 20 mg PO BEDTIME 30 Days Qty: 30 3RF (DME) bedside commode Kit See Rx Instructions .Route Qty: 1 0RF Rx Instructions: As directed (DME) wheelchair-16 inch wide with removable footrests 16 inch wide See Rx Instructions .Route .MEDSUPPLY Qty: 1 0RF Rx Instructions: As directed hydroxyzine HCl 25 mg tablet 25 mg PO TID PRN (Reason: Anxiety) bupropion HCl 150 mg tablet extended release 24 hr 150 mg PO DAILY Trulicity 3 mg/0.5 mL pen injector 3 mg subcut WE ondansetron 4 mg tablet,disintegrating 4 mg PO Q6H PRN (Reason: nausea and vomiting) Qty: 14 0RF allopurinol 100 mg tablet 200 mg PO DAILY (DME) FreeStyle Erika 14 Day Sensor Kit See Rx Instructions .Route Qty: 1 4RF Rx Instructions: As directed buspirone 7.5 mg tablet 7.5 mg PO BID lisinopril 5 mg tablet 5 mg PO DAILY Qty: 90 2RF multivitamin Tablet 1 tab PO DAILY duloxetine 60 mg capsule,delayed release(DR/EC) 60 mg PO DAILY naltrexone 50 mg tablet 50 mg PO DAILY tadalafil 5 mg tablet 5 mg PO DAILY 90 Days Qty: 90 0RF testosterone 20.25 mg/1.25 gram (1.62 %) gel in metered-dose pump 2 pump topical DAILY 30 Days Qty: 75 2RF Rx Instructions: apply 2 pumps over max area - alternate shoulders on alternate days Print Language: Icelandic
[2023-10-06 14:25] LABS: MANUAL DIFF FLAG NO
[2023-10-06 14:26] LABS: Basophils Absolute Auto 0.1 X10*3/uL (0.0-0.2); Basophils Percent Auto 1.1 % (0-2); Eosinophils Absolute Auto 0.2 X10*3/uL (0.0-0.4); Eosinophils Percent Auto 1.7 % (0-4); Hematocrit 41.3 % (42.0-52.0); Hemoglobin 14.7 g/dl (14.0-18.0); Imm Gran Abs Auto 0.03 X10*3/uL (0.00-0.03); Imm Gran Pct Auto 0.3 % (0.0-0.4); Lymphocytes Absolute Auto 1.5 X10*3/uL (1.2-4.9); Lymphocytes Percent Auto 15.3 % (20-40); Mean Corpuscular HGB Conc 35.6 g/dl (31.0-36.0); Mean Corpuscular Hemoglobin 31.5 pg (27.0-33.0); Mean Corpuscular Volume 88.4 fL (80.0-98.0); Mean Platelet Volume 9.4 fL (9.4-12.4); Monocytes Absolute Auto 1.1 X10*3/uL (0.1-1.2); Monocytes Percent Auto 11.2 % (2-11); NRBC Pct Auto 0.3 /100WBC (0.0-0.2); Neutrophils Absolute Auto 6.7 x10*3/uL (2.0-8.3); Neutrophils Percent Auto 70.4 % (45-73); Platelet Count 254 X10*3/uL (160-400); Red Blood Count 4.67 X10*6/uL (4.60-5.80); Red Cell Distribution Width 19.3 % (11.0-16.0); White Blood Count 9.5 X10*3/uL (4.8-10.8)
[2023-10-06 14:34] LABS: Ammonia 33 umol/L (13-55)
[2023-10-06] MEDS: PHENobarbitaL sodium 130 MG/ML IM ONCE 330 MG IM (14:38)
[2023-10-06] MEDS: 0.9 % Sodium Chloride 500 ML 999 ML IV (14:43)
[2023-10-06 14:46] LABS: INTERNATIONAL NORM RATIO 1.2 (0.9-1.1); Prothrombin Time 14.8 SEC (11.1-13.3)
--- NOTE | 2023-10-06 16:19 | P.HPHOSP_ITS ---
History of Present Illness Date of Service: 10/06/23 Attending physician on admission: Lamberto Guzman Chief Complaint: High blood pressure, visual hallucinations Pt is a 68-year-old male with a PMH significant for? CAD, persistent AFib on Pradaxa, chronic osteomyelitis s/p left BKA, HTN, HLD, alcohol use disorder, llh-[id number]-yhbydhjfk type 2 diabetes, splenic marginal zone lymphoma, gout, BPH, and mood disorder who presents to the ED after visiting nurse found pt's blood pressure to be 152/102, and pt had tremors and visual hallucinations concerning for alcohol withdrawal. Pt reports drinking heavily, up to 1L of 80- proof vodka for the past three weeks due to increased life stressors including a ?nasty? divorce from his . Last drink two days ago on Monday afternoon. Starting last night and more pronounced this morning, pt has had diaphoresis, minor upper extremity tremors, increased anxiety, nausea, and dry heaving. Also endorses visual hallucinations, including seeing bugs on the cline and small animals that look like lizards with long tails eating away at his skin. Also states saw a man and boy emerging up to their torsos from chronic left stump wound; they were smiling and waving at him. Denies fever, chills. No abdominal pain. Denies chest pain/pressure or palpitations. No headache. Denies SOB or ALBRECHT. Of note, pt with left shoulder fracture after fall at home. Is set to have shoulder replacement surgery with Dr. Newton. In the ED pt's vitals were stable and WNL. Labs were significant for magnesium of 1.3, bilirubin 1.9, and alk-phos 158.No leukocytosis. Stable H&H. Ammonia WNL at 33. Renal function baseline. INR mildly elevated at 1.2. Pt mildly elevated at 14.8. Ethyl alcohol levels undetectable. CT?of head showed no evidence of space-occupying lesion or acute cerebral infarction, but did show unchanged mild age-related cerebral atrophy with likely microangiopathy and unchanged bilateral medial basal ganglia calcifications. EKG demonstrated atrial fibrillation without evidence of significant ST elevations or depressions. Pt was treated with IVF and started on phenobarb protocol. Pt will be admitted to the hospital for treatment and further evaluation of acute alcohol withdrawal. Review of Systems 2 Review of Systems: Visual hallucinations Diaphoresis Increased anxiety Tremors Nausea with dry heaving Denies No abdominal pain Denies fever, chills No chest pain/pressure, palpitations Denies shortness of breath or difficulty breathing [facility] Medical History Rosacea Annual physical exam Persistent atrial fibrillation Orthostatic hypotension Lymphoma Depression Essential hypertension Hyperlipidemia LDL goal <100 Obesity due to excess calories BMI 30.0-30.9,adult DM (diabetes mellitus) ETOH abuse BPH associated with nocturia CAD (coronary artery disease) Long-term current use of intravenous immunoglobulin (IVIG) GERD (gastroesophageal reflux disease) Hypogammaglobulinemia Diabetic eye exam Adjustment disorder PAF (paroxysmal atrial fibrillation) Gout Chronic osteomyelitis Splenic marginal zone b-cell lymphoma EMIL (obstructive sleep apnea) Family History Father Diabetes Mother Liver cancer Maternal Grandfather CVD (cardiovascular disease) Brother Myocardial infarction Surgical History Status post below-knee amputation of left lower extremity Osteomyelitis Osteomyelitis History of esophagogastroduodenoscopy (EGD) History of colonoscopy History of bunionectomy History of cardiac cath Social History Household Members: Spouse and None Housing: House Do you presently have visiting nurse or other home services: No Alcohol intake: former Year quit: 2019 Patient Tobacco Use Status: Never used Tobacco e-Cigarette/Vaping Use: Never Used Advance Directives: Yes Advance Directives on File: Yes Advance Directives Date on File: 06/02/23 Do you have a plan to hurt others: No Plan service: No Current occupational status: employed 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 Cognitive needs: No Hearing needs: No Vision needs: Yes Meds Allergies Allergy/AdvReac Type Severity Reaction Status Date / Time vancomycin [VANCOMYCIN] Allergy Severe ANGIOEDEMA Verified 10/06/23 13:46 Sulfa (Sulfonamide Allergy Intermediate Rash Verified 10/06/23 13:46 Antibiotics) sulfamethoxazole Allergy rash Verified 10/06/23 13:46 [From Bactrim] trimethoprim [From Bactrim] Allergy Rash Verified 10/06/23 13:46 Active Medications: Current Medications Pharmacy Consult (Consult Rx Etoh Phenob Im/Po) 1 each MISCELLANE ONCE PRN; Protocol PRN Reason: Consult order Phenobarbital (Phenobarbital 30 Mg Tablet) 60 mg PO BID MADDY; Protocol Stop: 10/08/23 21:01 Phenobarbital (Phenobarbital 30 Mg Tablet) 30 mg PO BID MADDY; Protocol Stop: 10/10/23 21:01 Phenobarbital (Phenobarbital 30 Mg Tablet) 30 mg PO DAILY [facility]; Protocol Stop: 10/12/23 09:01 Phenobarbital Sodium (Phenobarbital Sodium 130 Mg/Ml Vial Im Q3hx2) 250 mg IM Q3H MADDY; Protocol Stop: 10/06/23 21:01 Home Medications ?Medication ?Instructions ?Recorded ?Confirmed ?Last Taken ?Type duloxetine 60 mg capsule,delayed 60 mg PO DAILY 12/21/19 09/06/23 06/27/22 History release multivitamin 1 tab PO DAILY 02/27/20 09/06/23 06/27/22 History allopurinol 100 mg tablet 200 mg PO DAILY 02/08/21 09/06/23 06/27/22 History naltrexone 50 mg tablet 50 mg PO DAILY Alcohol Withdrawal 08/24/22 09/06/23 Unknown History buspirone 7.5 mg tablet 7.5 mg PO BID 04/24/23 09/06/23 Unknown History bupropion HCl 150 mg 24 hr tablet, 150 mg PO DAILY 06/01/23 09/06/23 Unknown History extended release dulaglutide 3 mg/0.5 mL 3 mg subcut WE 06/01/23 09/06/23 05/31/23 History subcutaneous pen injector (Trulicity) hydroxyzine HCl 25 mg tablet 25 mg PO TID PRN Anxiety 06/01/23 09/06/23 Unknown History ciclopirox 0.77 % topical cream appl topical 10/06/23 Unknown History Physical Exam 2 Vital Signs and Narrative: Vital Signs: Last Vital Signs Temp 98.8 F 10/06/23 13:49 Pulse 90 10/06/23 13:49 Resp 18 10/06/23 13:49 BP 126/81 10/06/23 13:49 Pulse Ox 98 10/06/23 13:49 O2 Del Method Room Air 10/06/23 13:49 BMI result Body Mass Index 26.4 Constitutional: Alert, in no acute distress. Mental Status: Oriented to person, place and time. Eyes: Pupils are equal, round, and reactive to light. Ear, Nose, and Throat: Oropharynx clear, mucous membranes moist. Ears and nose without deformities. Trachea midline. Respiratory: Clear to auscultation bilaterally. No wheezing, rales, or rhonchi. Cardiovascular: S1, S2 regular. No murmurs, rubs, or gallops. Gastrointestinal: Abdomen soft, non-tender, non-distended. Normal bowel sounds. Neurologic: Cranial nerves II-XII are grossly intact bilaterally. No focal neurological deficits. Moves all extremities spontaneously. Mild left upper extremity tremors noted. Skin: Warm, dry. Extremities: No edema. Chronic left stump and right lower extremity wounds without signs of infection. As pictured below. Psychiatric: Normal mood and affect. Results Labs 10/06/23 14:17 10/06/23 14:17 Labs: Laboratory Results - last 24 hr 10/06/23 10/06/23 14:17 14:36 MCV 88.4 MCH 31.5 MCHC 35.6 RDW 19.3 H Plt Count 254 MPV 9.4 Immature Gran % (Auto) 0.3 Neut % (Auto) 70.4 Lymph % (Auto) 15.3 L [place] % (Auto) 11.2 H Eos % (Auto) 1.7 Baso % (Auto) 1.1 Lymph # (Auto) 1.5 [place] # (Auto) 1.1 Eos # (Auto) 0.2 Baso # (Auto) 0.1 Abs Immat Gran (auto) 0.03 Absolute Neuts (auto) 6.7 Absolute Nucleated RBC 0.030 H Nucleated RBC % (auto) 0.3 H PT 14.8 H INR 1.2 H Ammonia 33 Imaging Radiologist's Impressions: Impressions Head CT 10/06/23 14:21 IMPRESSION: 1. Unchanged mild age related cerebral atrophy, bilateral frontal periventricular ischemic white matter disease compatible with microangiopathy. 2. Unchanged bilateral medial basal ganglia physiological calcifications. No intracranial hemorrhage or skull fracture is seen. 3. No evidence of space occupying lesion could be found. 4. The current plain CT scan of the brain shows no diagnostic evidence of acute cerebral infarction. Assessment and Plan (1) Alcohol withdrawal: Status: Acute Plan Pt is a 68-year-old male with a PMH significant for? CAD, persistent AFib on Pradaxa, chronic osteomyelitis s/p left BKA, HTN, HLD, alcohol use disorder, mus-qcdwoei-wigdckjey type 2 diabetes, splenic marginal zone lymphoma, gout, BPH, and mood disorder who presents to the ED after visiting nurse found pt's blood pressure to be 152/102, and pt had tremors and visual hallucinations concerning for alcohol withdrawal. Pt will be admitted to the hospital for treatment and further evaluation of acute alcohol withdrawal. Acute alcohol withdrawal Patient has been drinking 1 L of vodka daily, last drink 2 days prior Tremors, diaphoresis, increased anxiety, N/V, visual hallucinations Continue phenobarb protocol Daily multivitamin, folic acid, thiamine Famotidine Follow lytes, Mag , BNP CIWA scale Addiction medicine consult Monitor on telemetry Hypomagnesemia Patient's magnesium 1.3 at time of presentation Repleted with Mag 2 g IV Trend labs Chronic diabetic wounds No signs of acute infection Wond care consult Left shoulder fracture Reports will undergo shoulder replacement surgery with Dr. Newton F/U outpatient with ortho Persistent AFib Continue Pradaxa digoxin, diltiazem HTN Continue lisinopril HLD Continue statin Non insulin-dependent type 2 diabetes Hold, metformin and Trulicity Sliding-scale insulin, diabetic diet Full Code Attending:?Dr. Guzman DVT Prophylaxis: On Pradaxa Pt will require a hospitalization of at least two nights for treatment of?acute alcohol with visual hallucinations. Patient close monitoring electrolytes, cardiac functioning and administration of phenobarb protocol. Quality Stroke Does the patient have a stroke diagnosis?: No VTE Prior VTE?: No VTE Risk Level:: Medical - moderate - high VTE Device Contraindication: Treatment Not Indicated VTE Drug Contraindication: N/A - Med Ordered
[2023-10-06 16:34] LABS: Anion Gap 16 (12-20)
[2023-10-06 16:42] LABS: Alanine Aminotransferase 23 U/L (0-40); Albumin Level 4.3 g/dL (3.5-5.0); Alkaline Phosphatase 158 U/L (39-117); Aspartate Amino Transferase 37 U/L (5-37); Bilirubin Direct 0.4 mg/dL (0.0-0.5); Bilirubin Total 1.9 mg/dL (0.0-1.0); Blood Urea Nitrogen 12 mg/dL (9-16); Carbon Dioxide 28 mmol/L (22-29); Chloride 100 mmol/L (96-108); Creatinine Clr Calc Pharmacy 108.3; Estimated Glomerular Filt Rate > 60; Ethanol < 10 mg/dL; Glucose Random 83 mg/dL (60-115); Magnesium 1.3 mg/dL (1.6-2.6); Potassium 3.7 mmol/L (3.3-5.1); Sodium 140 mmol/L (135-145); Total Protein 6.7 g/dL (6.5-8.0)
[2023-10-06 17:19] VITALS: BP 134/79; PULSE 78; RESP 16; TEMP 36.6; O2SAT 100
[2023-10-06] MEDS: Magnesium Sulfate/H2O 2 GM/50 ML PIGGYBACK IV (17:43)
[2023-10-06] MEDS: Thiamine HCL 100 MG TABLET PO (17:51)
[2023-10-06] MEDS: Multivitamin TABLET 1 TAB PO (17:51)
[2023-10-06] MEDS: Folic Acid 1 MG TABLET PO (17:51)
[2023-10-06] MEDS: PHENobarbitaL sodium 130 MG/ML VIAL IM Q3Hx2 250 MG IM ×2 (17:51→21:31)
--- NOTE | 2023-10-06 18:14 | PHA.MEDREC ---
Pharmacy Consult ? Medication Reconciliation Pharmacy has completed the medication reconciliation. Spoke to patient to confirm med list. Patient states he is not taking Ondansetron 4 mg Q6H prn, Tadalafil 5 mg daily prn, Testosterone 2 pump daily. Patient says he takes Trulicity 3 mg Qweek on Monday, however he hasn't had a dose in 2 week, due to it being on backorder.
[2023-10-06 18:34] LABS: Glucose, Whole Blood 181 mg/dL (60-115)
[2023-10-06 18:57] VITALS: BP 133/70; PULSE 93; RESP 24; TEMP 36.7; O2SAT 100
[2023-10-06 19:39] LABS: Appearance Urine Clear; Color Urine Yellow; Glucose Urine UA >=1000 mg/dL (Negative); Leukocyte Esterase Urine Negative (Negative); Nitrite Urine Negative (Negative); Specific Gravity - Urine 1.015 (1.005-1.025); UMIC TRIGGER UACC YES; Urine Blood Negative (Negative); Urine Ketones Negative (Negative); Urine Protein Negative (Neg-Trace)
[2023-10-06 19:42] LABS: Bacteria Urine 1+ (None Seen); Hyaline Casts Urine 0-2 /LPF (0-2); RBC Urine 0-2 /HPF (0-2); Squamous Epithelial Cell Urine 0-2 /HPF (0-2); WBC Urine 0-5 /HPF (0-5)
[2023-10-06 19:49] LABS: Amphetamine Screen Urine Not Detected (Not Detect); Barbiturates, Urine POSITIVE (Not Detect); Benzodiazepines Screen Urine Not Detected (Not Detect); Buprenorphine Scr Not Detected (Not Detect); Cannabinoid Screen Urine Not Detected (Not Detect); Cocaine Screen Urine Not Detected (Not Detect); Fentanyl, urine Not Detected (Not Detect); Methadone Screen, Urine Not Detected (Not Detect); Opiate Screen Urine Not Detected (Not Detect); Oxycodone Screen Urine Not Detected (Not Detect); Phencyclidine Screen Urine Not Detected (Not Detect)
[2023-10-06 21:23] LABS: Glucose, Whole Blood 128 mg/dL (60-115)
[2023-10-06] MEDS: Metoprolol Tartrate 50 MG TABLET PO (21:32)
[2023-10-06] MEDS: busPIRone HCl 10 MG TABLET PO (21:32)
[2023-10-06] MEDS: Atorvastatin Calcium 20 MG TABLET PO (21:33)
[2023-10-06] MEDS: Famotidine 20 MG TABLET PO (21:33)
[2023-10-06] MEDS: Dabigatran Etexilate Mesylate 150 MG CAPSULE PO (21:33)
[2023-10-06 23:30] VITALS: BP 143/78; PULSE 73; RESP 18; TEMP 36.7; O2SAT 98
[2023-10-07] MEDS: 0.9 % Sodium Chloride Flush 3 ML SYRINGE IVFLUSH ×4 (00:26→23:39)
[2023-10-07 03:24] VITALS: BP 126/86; PULSE 67; RESP 18; TEMP 36.1; O2SAT 99
--- NOTE | 2023-10-07 03:37 | HO.SKINPHOTO ---
Location:left below the knee amputation site Category: Stage: Length: Width: Depth: cm Location:right foot Category: Stage: Length: Width: Depth: cm Location:right 4th, 5th toes Category: Stage: Length: Width: Depth: cm Location:right lower extremity Category: Stage: Length: Width: Depth: cm Location: Category: Stage: Length: Width: Depth: cm Location: Category: Stage: Length: Width: Depth: cm
[2023-10-07 07:49] VITALS: BP 154/90; PULSE 69; RESP 20; TEMP 36.6; O2SAT 95
[2023-10-07 07:49] LABS: Anion Gap 15 (12-20); Blood Urea Nitrogen 9 mg/dL (9-16); Calcium 9.6 mg/dL (8.4-10.2); Carbon Dioxide 29 mmol/L (22-29); Chloride 97 mmol/L (96-108); Creatinine Clr Calc Pharmacy 118.9; Estimated Glomerular Filt Rate > 60; Glucose Random 106 mg/dL (60-115); Magnesium 1.5 mg/dL (1.6-2.6); Potassium 3.7 mmol/L (3.3-5.1); Sodium 137 mmol/L (135-145)
[2023-10-07] MEDS: Magnesium Sulfate/H2O 2 GM/50 ML PIGGYBACK IV (09:03)
[2023-10-07] MEDS: allopurinoL 100 MG TABLET 200 MG PO (09:05)
[2023-10-07] MEDS: PHENobarbitaL 30 MG TABLET 60 MG PO ×2 (09:06→20:06)
[2023-10-07] MEDS: Thiamine HCL 100 MG TABLET PO (09:06)
[2023-10-07] MEDS: DULoxetine HCl 60 MG CAPSULE.DR PO (09:06)
[2023-10-07] MEDS: busPIRone HCl 10 MG TABLET PO ×2 (09:06→20:05)
[2023-10-07] MEDS: Famotidine 20 MG TABLET PO ×2 (09:06→20:05)
[2023-10-07] MEDS: buPROPion HCl XL 150 MG TAB.ER.24H PO (09:06)
[2023-10-07] MEDS: Metoprolol Tartrate 50 MG TABLET PO ×2 (09:06→20:05)
[2023-10-07] MEDS: Naltrexone HCl 50 MG TABLET PO (09:06)
[2023-10-07] MEDS: Dabigatran Etexilate Mesylate 150 MG CAPSULE PO ×2 (09:06→20:05)
[2023-10-07] MEDS: Multivitamin TABLET 1 TAB PO (09:06)
[2023-10-07] MEDS: Folic Acid 1 MG TABLET PO (09:06)
[2023-10-07] MEDS: dilTIAZem HCL CD 180 MG CAP.ER.24H PO (09:06)
[2023-10-07] MEDS: lisinopriL 5 MG TABLET PO (09:07)
[2023-10-07] MEDS: Ascorbic Acid 500 MG TABLET PO (09:07)
[2023-10-07] MEDS: Digoxin 0.125 MG TABLET PO (09:07)
--- NOTE | 2023-10-07 11:09 | P.PNIM_ITS ---
Subjective Subjective Date of Service: 10/08/23 Interval History: f/u on alcohol withdrawal interval: no tremors, no hallucination, no tachycardida, Physical Exam 2 Vital Signs: Vital Signs: Last Vital Signs Temp 97.8 F 10/07/23 07:49 Pulse 69 10/07/23 07:49 Resp 20 10/07/23 07:49 BP 154/90 H 10/07/23 07:49 Pulse Ox 95 10/07/23 07:49 O2 Del Method Room Air 10/07/23 07:49 BMI result Body Mass Index 26.4 Const: Other: General: AO X 3, no acute distress Resp: CTA bilateral CVS: S1,S2,RRR GI: +BS, NT, no distention Skin: see pictures of leg in h and p Neuro: motor grossly intact Psych: appropriate affect Objective Data Active Medications Acetaminophen (Acetaminophen 325 Mg Tablet) 650 mg PO Q6H PRN PRN Reason: Pain, Mild (Pain Scale 1-3), fever or headache Allopurinol (Allopurinol 100 Mg Tablet) 200 mg PO DAILY [facility] Last Admin: 10/07/23 09:05 Dose: 200 mg Documented By: PEDRO LUIS Ascorbic Acid (Ascorbic Acid 500 Mg Tablet) 500 mg PO DAILY [facility] Last Admin: 10/07/23 09:07 Dose: 500 mg Documented By: PEDRO LUIS Atorvastatin Calcium (Atorvastatin Calcium 20 Mg Tablet) 20 mg PO BEDTIME [facility] Last Admin: 10/06/23 21:33 Dose: 20 mg Documented By: EDMUND Benzonatate (Benzonatate 100 Mg Capsule) 100 mg PO TID PRN PRN Reason: Cough Bupropion HCl (Bupropion Hcl Xl 150 Mg Tab.Er.24h) 150 mg PO DAILY [facility] Last Admin: 10/07/23 09:06 Dose: 150 mg Documented By: PEDRO LUIS Buspirone HCl (Buspirone Hcl 10 Mg Tablet) 10 mg PO BID [facility] Last Admin: 10/07/23 09:06 Dose: 10 mg Documented By: PEDRO LUIS Calcium Carbonate (Calcium Carbonate 750 Mg Tab.Chew) 750 mg PO Q4H PRN PRN Reason: Heartburn Dabigatran (Dabigatran Etexilate Mesylate 150 Mg Capsule) 150 mg PO BID [facility] Last Admin: 10/07/23 09:06 Dose: 150 mg Documented By: PEDRO LUIS Digoxin (Digoxin 0.125 Mg Tablet) 0.125 mg PO DAILY [facility] Last Admin: 10/07/23 09:07 Dose: 0.125 mg Documented By: PEDRO LUIS Diltiazem HCl (Diltiazem Hcl Cd 180 Mg Cap.Er.24h) 180 mg PO DAILY [facility]; Protocol Last Admin: 10/07/23 09:06 Dose: 180 mg Documented By: PEDRO LUIS Duloxetine HCl (Duloxetine Hcl 60 Mg Capsule.Dr) 60 mg PO DAILY [facility] Last Admin: 10/07/23 09:06 Dose: 60 mg Documented By: PEDRO LUIS Famotidine (Famotidine 20 Mg Tablet) 20 mg PO BID [facility] Last Admin: 10/07/23 09:06 Dose: 20 mg Documented By: PEDRO LUIS Folic Acid (Folic Acid 1 Mg Tablet) 1 mg PO DAILY [facility] Stop: 10/09/23 17:24 Last Admin: 10/07/23 09:06 Dose: 1 mg Documented By: PEDRO LUIS Hydroxyzine HCl (Hydroxyzine Hcl 25 Mg Tablet) 25 mg PO TID PRN PRN Reason: Anxiety Lisinopril (Lisinopril 5 Mg Tablet) 5 mg PO DAILY [facility]; Protocol Last Admin: 10/07/23 09:07 Dose: 5 mg Documented By: PEDRO LUIS Magnesium Hydroxide (Milk Of Magnesia 30 Ml Oral.Susp) 30 ml PO DAILY PRN PRN Reason: Constipation Metoprolol Tartrate (Metoprolol Tartrate 50 Mg Tablet) 50 mg PO BID [facility]; Protocol Last Admin: 10/07/23 09:06 Dose: 50 mg Documented By: PEDRO LUIS Multivitamins/Vitamin C (Multivitamin Tablet) 1 tab PO DAILY [facility] Stop: 10/09/23 17:29 Last Admin: 10/07/23 09:06 Dose: 1 tab Documented By: PEDRO LUIS Naltrexone HCl (Naltrexone Hcl 50 Mg Tablet) 50 mg PO DAILY [facility] Last Admin: 10/07/23 09:06 Dose: 50 mg Documented By: PEDRO LUIS Ondansetron HCl (Ondansetron Hcl 4 Mg/2 Ml Vial) 4 mg IVPUSH Q8H PRN PRN Reason: Nausea and Vomiting Pharmacy Consult (Consult Rx Etoh Phenob Im/Po) 1 each MISCELLANE ONCE PRN; Protocol PRN Reason: Consult order Phenobarbital (Phenobarbital 30 Mg Tablet) 60 mg PO BID [facility]; Protocol Stop: 10/08/23 21:01 Last Admin: 10/07/23 09:06 Dose: 60 mg Documented By: PEDRO LUIS Phenobarbital (Phenobarbital 30 Mg Tablet) 30 mg PO BID [facility]; Protocol Stop: 10/10/23 21:01 Phenobarbital (Phenobarbital 30 Mg Tablet) 30 mg PO DAILY [facility]; Protocol Stop: 10/12/23 09:01 Sodium Chloride (0.9 % Sodium Chloride Flush 3 Ml Syringe) 3 ml IVFLUSH QSHIFT [facility] Last Admin: 10/07/23 09:05 Dose: 3 ml Documented By: PEDRO LUIS Thiamine HCl (Thiamine Hcl 100 Mg Tablet) 100 mg PO DAILY [facility] Stop: 10/09/23 17:29 Last Admin: 10/07/23 09:06 Dose: 100 mg Documented By: PEDRO LUIS Labs 10/06/23 14:17 10/08/23 06:30 Labs: Laboratory Results - last 24 hr 10/06/23 10/06/23 10/06/23 14:17 14:36 16:17 MCV 88.4 MCH 31.5 MCHC 35.6 RDW 19.3 H Plt Count 254 MPV 9.4 Immature Gran % (Auto) 0.3 Neut % (Auto) 70.4 Lymph % (Auto) 15.3 L [place] % (Auto) 11.2 H Eos % (Auto) 1.7 Baso % (Auto) 1.1 Lymph # (Auto) 1.5 [place] # (Auto) 1.1 Eos # (Auto) 0.2 Baso # (Auto) 0.1 Abs Immat Gran (auto) 0.03 Absolute Neuts (auto) 6.7 Absolute Nucleated RBC 0.030 H Nucleated RBC % (auto) 0.3 H PT 14.8 H INR 1.2 H Anion Gap 16 Estim Creat Clear Calc 108.3 Estimated GFR > 60 POC Glucose Random Glucose 83 Calcium 10.0 D Magnesium 1.3 L* Total Bilirubin 1.9 H Direct Bilirubin 0.4 AST 37 ALT 23 Alkaline Phosphatase 158 H Ammonia 33 Total Protein 6.7 Albumin 4.3 Urine Color Urine Appearance Urine pH Ur Specific [place] Urine Protein Urine Glucose (UA) Urine Ketones Urine Blood Urine Nitrite Ur Leukocyte Esterase Urine RBC Urine WBC Ur Squamous Epith Cells Urine Bacteria Hyaline Casts Urine Opiates Screen Ur Buprenorphine Scrn Ur Oxycodone Screen Urine Methadone Screen Urine Fentanyl Screen Ur Barbiturates Screen Ur Phencyclidine Scrn Ur Amphetamines Screen U Benzodiazepines Scrn Urine Cocaine Screen U Marijuana (THC) Screen Ethyl Alcohol < 10 10/06/23 10/06/23 10/06/23 18:29 19:31 21:14 MCV MCH MCHC RDW Plt Count MPV Immature Gran % (Auto) Neut % (Auto) Lymph % (Auto) [place] % (Auto) Eos % (Auto) Baso % (Auto) Lymph # (Auto) [place] # (Auto) Eos # (Auto) Baso # (Auto) Abs Immat Gran (auto) Absolute Neuts (auto) Absolute Nucleated RBC Nucleated RBC % (auto) PT INR Anion Gap Estim Creat Clear Calc Estimated GFR POC Glucose 181 H 128 H Random Glucose Calcium Magnesium Total Bilirubin Direct Bilirubin AST ALT Alkaline Phosphatase Ammonia Total Protein Albumin Urine Color Yellow Urine Appearance Clear Urine pH 8.0 Ur Specific [place] 1.015 Urine Protein Negative Urine Glucose (UA) >=1000 H Urine Ketones Negative Urine Blood Negative Urine Nitrite Negative Ur Leukocyte Esterase Negative Urine RBC 0-2 Urine WBC 0-5 Ur Squamous Epith Cells 0-2 Urine Bacteria 1+ Hyaline Casts 0-2 Urine Opiates Screen Not Detected Ur Buprenorphine Scrn Not Detected Ur Oxycodone Screen Not Detected Urine Methadone Screen Not Detected Urine Fentanyl Screen Not Detected Ur Barbiturates Screen POSITIVE H Ur Phencyclidine Scrn Not Detected Ur Amphetamines Screen Not Detected U Benzodiazepines Scrn Not Detected Urine Cocaine Screen Not Detected U Marijuana (THC) Screen Not Detected Ethyl Alcohol 10/07/23 07:00 MCV MCH MCHC RDW Plt Count MPV Immature Gran % (Auto) Neut % (Auto) Lymph % (Auto) [place] % (Auto) Eos % (Auto) Baso % (Auto) Lymph # (Auto) [place] # (Auto) Eos # (Auto) Baso # (Auto) Abs Immat Gran (auto) Absolute Neuts (auto) Absolute Nucleated RBC Nucleated RBC % (auto) PT INR Anion Gap 15 Estim Creat Clear Calc 118.9 Estimated GFR > 60 POC Glucose Random Glucose 106 Calcium 9.6 Magnesium 1.5 L Total Bilirubin Direct Bilirubin AST ALT Alkaline Phosphatase Ammonia Total Protein Albumin Urine Color Urine Appearance Urine pH Ur Specific [place] Urine Protein Urine Glucose (UA) Urine Ketones Urine Blood Urine Nitrite Ur Leukocyte Esterase Urine RBC Urine WBC Ur Squamous Epith Cells Urine Bacteria Hyaline Casts Urine Opiates Screen Ur Buprenorphine Scrn Ur Oxycodone Screen Urine Methadone Screen Urine Fentanyl Screen Ur Barbiturates Screen Ur Phencyclidine Scrn Ur Amphetamines Screen U Benzodiazepines Scrn Urine Cocaine Screen U Marijuana (THC) Screen Ethyl Alcohol Assessment and Plan (1) Hypomagnesemia: Status: Acute (2) Alcohol withdrawal: Status: Acute Plan 68/m w/ CAD, persistent AFib on Pradaxa, chronic osteomyelitis s/p left BKA, HTN, HLD, alcohol use disorder (drings1 L of vodka a day), [id number] type 2 diabetes, splenic marginal zone lymphoma, gout, BPH, and mood disorder who presents to the ED after visiting nurse found pt's blood pressure to be 152/102, and pt had tremors and visual hallucinations concerning for alcohol withdrawal. Pt is admitted for acute alcohol withdrawal. Acute alcohol withdrawal--symptoms are better, no Tremors, diaphoresis, increased anxiety, N/V, visual hallucinations Continue phenobarb protocol Daily multivitamin, folic acid, thiamine Famotidine Follow lytes, Mag CIWA scale Addiction medicine consult Monitor on telemetry Hypomagnesemia, 1.5 today, replete and recheck tomorrow -add PO mag Chronic diabetic wounds No signs of acute infection Wound care consult Left shoulder fracture Reports will undergo shoulder replacement surgery with Dr. Newton F/U outpatient with ortho Persistent AFib Continue Pradaxa digoxin, diltiazem HTN--increase lisinopril to 10 HLD Continue statin Non insulin-dependent type 2 diabetes Hold, metformin and Trulicity Sliding-scale insulin, diabetic diet Full Code Attending:?Dr. Guzman DVT Prophylaxis: On Pradaxa Pt will require a hospitalization of at least two nights for treatment of?acute alcohol with visual hallucinations. Patient close monitoring electrolytes, cardiac functioning and administration of phenobarb protocol. Quality Stroke Does the patient have a stroke diagnosis?: No VTE Prior VTE?: No VTE Risk Level:: Medical - moderate - high VTE Device Contraindication: Treatment Not Indicated VTE Drug Contraindication: N/A - Med Ordered
[2023-10-07 11:38] VITALS: BP 118/69; PULSE 75; RESP 20; TEMP 36.3; O2SAT 96
[2023-10-07] MEDS: Magnesium Oxide 400 MG TABLET PO (13:26)
--- NOTE | 2023-10-07 14:58 | MHC.CM.PN ---
Addendum entered by Adelina Cochran 10/09/23 08:32: PT COMPLETED A NEW HCP NAMING HIS BROTHER, NGUYEN TOLLIVER, PT WILL OBTAIN THE PHONE NUMBER AND PROVIDE IT TO STAFF. 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
[2023-10-07 16:00] VITALS: BP 145/81; PULSE 70; RESP 20; TEMP 36.2; O2SAT 100
[2023-10-07 20:00] VITALS: BP 129/69; PULSE 59; RESP 18; TEMP 36.7; O2SAT 98
[2023-10-07] MEDS: Atorvastatin Calcium 20 MG TABLET PO (20:06)
[2023-10-07 21:13] LABS: Glucose, Whole Blood 111 mg/dL (60-115)
[2023-10-08] VITALS: BP 124/69; PULSE 70; RESP 18; TEMP 36.7; O2SAT 100
[2023-10-08 03:11] VITALS: BP 148/80; PULSE 63; RESP 18; TEMP 36.6; O2SAT 99
[2023-10-08 07:25] LABS: Anion Gap 13 (12-20); Blood Urea Nitrogen 10 mg/dL (9-16); Calcium 8.7 mg/dL (8.4-10.2); Carbon Dioxide 26 mmol/L (22-29); Chloride 100 mmol/L (96-108); Creatinine Clr Calc Pharmacy 111.1; Estimated Glomerular Filt Rate > 60; Glucose Random 96 mg/dL (60-115); Magnesium 1.6 mg/dL (1.6-2.6); Potassium 3.4 mmol/L (3.3-5.1); Sodium 136 mmol/L (135-145)
[2023-10-08 08:00] VITALS: BP 166/89; PULSE 64; RESP 20; TEMP 36.2; O2SAT 99
[2023-10-08] MEDS: dilTIAZem HCL CD 180 MG CAP.ER.24H PO (08:51)
[2023-10-08] MEDS: DULoxetine HCl 60 MG CAPSULE.DR PO (08:51)
[2023-10-08] MEDS: lisinopriL 5 MG TABLET PO ×2 (08:51→11:41)
[2023-10-08] MEDS: buPROPion HCl XL 150 MG TAB.ER.24H PO (08:51)
[2023-10-08] MEDS: Digoxin 0.125 MG TABLET PO (08:51)
[2023-10-08] MEDS: Thiamine HCL 100 MG TABLET PO (08:51)
[2023-10-08] MEDS: allopurinoL 100 MG TABLET 200 MG PO (08:51)
[2023-10-08] MEDS: busPIRone HCl 10 MG TABLET PO ×2 (08:51→20:41)
[2023-10-08] MEDS: Ascorbic Acid 500 MG TABLET PO (08:51)
[2023-10-08] MEDS: Dabigatran Etexilate Mesylate 150 MG CAPSULE PO ×2 (08:51→20:41)
[2023-10-08] MEDS: Naltrexone HCl 50 MG TABLET PO (08:51)
[2023-10-08] MEDS: Famotidine 20 MG TABLET PO ×2 (08:52→20:41)
[2023-10-08] MEDS: Magnesium Oxide 400 MG TABLET PO (08:52)
[2023-10-08] MEDS: Folic Acid 1 MG TABLET PO (08:52)
[2023-10-08] MEDS: 0.9 % Sodium Chloride Flush 3 ML SYRINGE IVFLUSH ×3 (08:52→23:44)
[2023-10-08] MEDS: Multivitamin TABLET 1 TAB PO (08:52)
[2023-10-08] MEDS: PHENobarbitaL 30 MG TABLET 60 MG PO ×2 (08:52→20:42)
[2023-10-08] MEDS: Metoprolol Tartrate 50 MG TABLET PO ×2 (08:52→20:41)
[2023-10-08] MEDS: Acetaminophen 325 MG TABLET 650 MG PO (11:40)
[2023-10-08 11:52] VITALS: BP 121/70; PULSE 78; RESP 20; TEMP 36.4; O2SAT 94
--- NOTE | 2023-10-08 12:09 | MHC.RECOVRN ---
Met with pt in [id number] after consult placed to Addiction Medicine for AUD. ? Chart review completed and received report from floor nurse Latha.. Pt had presented to the ED via EMS due to? having (150/100) high blood pressure and visual hallucinations. Visiting nurse was also concerned for ETOH withdrawal as Pt. has not had a drink in 2 days? but when he does drink, it's usually 1 liter of hard liquor.? Pt was admitted to the floor for treatment of acute alcohol with visual hallucinations along with close monitoring of electrolytes, cardiac functioning and administration of phenobarb protocol. Upon assessment pt is lying in bed awake and alert.? His CIWA score this AM was a 2 and no W/D sx noted or reported during visit.?? Pt reports drinking since approx age 16.? He reports periods of sobriety his last being for approx 1 year with ?three slips during?.? Pt reports he drinks due to isolation and loneliness.? He attends AA meetings 3x/wk. He has a coach cleaner, therapist and counselor ([facility]) which he meets with regularly.? He takes naltrexone.? He has a sponsor.? ? T/W provided pt with resources for AUD community supports.? Pt declined need for any further assistance.?? Report provided to pt?s nurse Latha along with the ACS team. ACS services available ongoing during pt?s hospitalization.?
[2023-10-08 16:00] VITALS: BP 144/73; PULSE 55; RESP 20; TEMP 36.3; O2SAT 100
--- NOTE | 2023-10-08 19:20 | P.PNIM_ITS ---
Subjective Subjective Date of Service: 10/08/23 Interval History: f/u on alcohol withdrawal interval: symptoms of withdrawal markedly improved, not yet seen by addiction med Physical Exam 2 Vital Signs: Vital Signs: Last Vital Signs Temp 97.4 F 10/08/23 16:00 Pulse 55 10/08/23 16:00 Resp 20 10/08/23 16:00 BP 144/73 H 10/08/23 16:00 Pulse Ox 100 10/08/23 16:00 O2 Del Method Room Air 10/08/23 16:00 BMI result Body Mass Index 26.4 General: AO X 3, no acute distress Resp: CTA bilateral CVS: S1,S2,RRR GI: +BS, NT, no distention Skin: s/p L BKA, stump wound clean no signs of infection Neuro: motor grossly intact Psych: appropriate affect Objective Data Active Medications Acetaminophen (Acetaminophen 325 Mg Tablet) 650 mg PO Q6H PRN PRN Reason: Pain, Mild (Pain Scale 1-3), fever or headache Last Admin: 10/08/23 11:40 Dose: 650 mg Documented By: PEDRO LUIS Allopurinol (Allopurinol 100 Mg Tablet) 200 mg PO DAILY [facility] Last Admin: 10/08/23 08:51 Dose: 200 mg Documented By: PEDRO LUIS Ascorbic Acid (Ascorbic Acid 500 Mg Tablet) 500 mg PO DAILY [facility] Last Admin: 10/08/23 08:51 Dose: 500 mg Documented By: PEDRO LUIS Atorvastatin Calcium (Atorvastatin Calcium 20 Mg Tablet) 20 mg PO BEDTIME [facility] Last Admin: 10/07/23 20:06 Dose: 20 mg Documented By: EDMUND Benzonatate (Benzonatate 100 Mg Capsule) 100 mg PO TID PRN PRN Reason: Cough Bupropion HCl (Bupropion Hcl Xl 150 Mg Tab.Er.24h) 150 mg PO DAILY [facility] Last Admin: 10/08/23 08:51 Dose: 150 mg Documented By: PEDRO LUIS Buspirone HCl (Buspirone Hcl 10 Mg Tablet) 10 mg PO BID [facility] Last Admin: 10/08/23 08:51 Dose: 10 mg Documented By: PEDRO LUIS Calcium Carbonate (Calcium Carbonate 750 Mg Tab.Chew) 750 mg PO Q4H PRN PRN Reason: Heartburn Dabigatran (Dabigatran Etexilate Mesylate 150 Mg Capsule) 150 mg PO BID [facility] Last Admin: 10/08/23 08:51 Dose: 150 mg Documented By: PEDRO LUIS Digoxin (Digoxin 0.125 Mg Tablet) 0.125 mg PO DAILY [facility] Last Admin: 10/08/23 08:51 Dose: 0.125 mg Documented By: PEDRO LUIS Diltiazem HCl (Diltiazem Hcl Cd 180 Mg Cap.Er.24h) 180 mg PO DAILY [facility]; Protocol Last Admin: 10/08/23 08:51 Dose: 180 mg Documented By: PEDRO LUIS Duloxetine HCl (Duloxetine Hcl 60 Mg Capsule.Dr) 60 mg PO DAILY [facility] Last Admin: 10/08/23 08:51 Dose: 60 mg Documented By: PEDRO LUIS Famotidine (Famotidine 20 Mg Tablet) 20 mg PO BID [facility] Last Admin: 10/08/23 08:52 Dose: 20 mg Documented By: PEDRO LUIS Folic Acid (Folic Acid 1 Mg Tablet) 1 mg PO DAILY [facility] Stop: 10/09/23 17:24 Last Admin: 10/08/23 08:52 Dose: 1 mg Documented By: PEDRO LUIS Hydroxyzine HCl (Hydroxyzine Hcl 25 Mg Tablet) 25 mg PO TID PRN PRN Reason: Anxiety Lisinopril (Lisinopril 5 Mg Tablet) 5 mg PO DAILY [facility]; Protocol Last Admin: 10/08/23 08:51 Dose: 5 mg Documented By: PEDRO LUIS Magnesium Hydroxide (Milk Of Magnesia 30 Ml Oral.Susp) 30 ml PO DAILY PRN PRN Reason: Constipation Magnesium Oxide (Magnesium Oxide 400 Mg Tablet) 400 mg PO DAILY [facility] Last Admin: 10/08/23 08:52 Dose: 400 mg Documented By: PEDRO LUIS Metoprolol Tartrate (Metoprolol Tartrate 50 Mg Tablet) 50 mg PO BID [facility]; Protocol Last Admin: 10/08/23 08:52 Dose: 50 mg Documented By: PEDRO LUIS Multivitamins/Vitamin C (Multivitamin Tablet) 1 tab PO DAILY [facility] Stop: 10/09/23 17:29 Last Admin: 10/08/23 08:52 Dose: 1 tab Documented By: PEDRO LUIS Naltrexone HCl (Naltrexone Hcl 50 Mg Tablet) 50 mg PO DAILY [facility] Last Admin: 10/08/23 08:51 Dose: 50 mg Documented By: PEDRO LUIS Ondansetron HCl (Ondansetron Hcl 4 Mg/2 Ml Vial) 4 mg IVPUSH Q8H PRN PRN Reason: Nausea and Vomiting Pharmacy Consult (Consult Rx Etoh Phenob Im/Po) 1 each MISCELLANE ONCE PRN; Protocol PRN Reason: Consult order Phenobarbital (Phenobarbital 30 Mg Tablet) 60 mg PO BID [facility]; Protocol Stop: 10/08/23 21:01 Last Admin: 10/08/23 08:52 Dose: 60 mg Documented By: PEDRO LUIS Phenobarbital (Phenobarbital 30 Mg Tablet) 30 mg PO BID [facility]; Protocol Stop: 10/10/23 21:01 Phenobarbital (Phenobarbital 30 Mg Tablet) 30 mg PO DAILY [facility]; Protocol Stop: 10/12/23 09:01 Sodium Chloride (0.9 % Sodium Chloride Flush 3 Ml Syringe) 3 ml IVFLUSH QSHIFT [facility] Last Admin: 10/08/23 17:10 Dose: 3 ml Documented By: PEDRO LUIS Thiamine HCl (Thiamine Hcl 100 Mg Tablet) 100 mg PO DAILY [facility] Stop: 10/09/23 17:29 Last Admin: 10/08/23 08:51 Dose: 100 mg Documented By: PEDRO LUIS Labs 10/06/23 14:17 10/08/23 06:30 Labs: Laboratory Results - last 24 hr 10/07/23 10/08/23 21:05 06:30 Anion Gap 13 Estim Creat Clear Calc 111.1 Estimated GFR > 60 POC Glucose 111 Random Glucose 96 Calcium 8.7 D Magnesium 1.6 Assessment and Plan (1) Hypomagnesemia: Status: Acute (2) Alcohol withdrawal: Status: Acute Plan 68/m w/ CAD, persistent AFib on Pradaxa, chronic osteomyelitis s/p left BKA, HTN, HLD, alcohol use disorder (drings1 L of vodka a day), [id number] type 2 diabetes, splenic marginal zone lymphoma, gout, BPH, and mood disorder who presents to the ED after visiting nurse found pt's blood pressure to be 152/102, and pt had tremors and visual hallucinations concerning for alcohol withdrawal. Pt is admitted for acute alcohol withdrawal. Acute alcohol withdrawal--symptoms nearly all resolved. Continue phenobarb protocol Daily multivitamin, folic acid, thiamine Famotidine Follow Mag MITRA ying scale Addiction medicine consult Hypomagnesemia, 1.6 today, Chronic diabetic wounds of L BKA stump No signs of acute infection Wound care consult Left shoulder fracture Reports will undergo shoulder replacement surgery with Dr. Newton F/U outpatient with ortho Persistent AFib Continue Pradaxa, digoxin, diltiazem HTN--continue Lisinopril at 10 HLD Continue statin Non insulin-dependent type 2 diabetes Hold, metformin and Trulicity Sliding-scale insulin, diabetic diet Full Code Attending:?Dr. Guzman DVT Prophylaxis: On Pradaxa need for inpt: phenobarbital for alcohol withdrawal Quality Stroke Does the patient have a stroke diagnosis?: No VTE Prior VTE?: No VTE Risk Level:: Medical - moderate - high VTE Device Contraindication: Treatment Not Indicated VTE Drug Contraindication: N/A - Med Ordered
[2023-10-08 19:43] VITALS: BP 130/58; PULSE 79; RESP 18; TEMP 36.9; O2SAT 92
[2023-10-08] MEDS: Atorvastatin Calcium 20 MG TABLET PO (20:41)
[2023-10-09] VITALS: BP 140/76; PULSE 59; RESP 18; TEMP 36.2; O2SAT 100
[2023-10-09] MEDS: hydrOXYzine HCL 25 MG TABLET PO (03:32)
[2023-10-09 04:00] VITALS: BP 168/97; PULSE 63; RESP 18; TEMP 36; O2SAT 100
[2023-10-09 06:46] LABS: Anion Gap 11 (12-20); Blood Urea Nitrogen 13 mg/dL (9-16); Calcium 9.1 mg/dL (8.4-10.2); Carbon Dioxide 28 mmol/L (22-29); Chloride 103 mmol/L (96-108); Creatinine Clr Calc Pharmacy 105.6; Estimated Glomerular Filt Rate > 60; Glucose Random 120 mg/dL (60-115); Potassium 3.4 mmol/L (3.3-5.1); Sodium 139 mmol/L (135-145)
[2023-10-09 07:54] VITALS: BP 166/81; PULSE 66; RESP 19; TEMP 36.3; O2SAT 99
[2023-10-09] MEDS: busPIRone HCl 10 MG TABLET PO (08:21)
[2023-10-09] MEDS: Magnesium Oxide 400 MG TABLET PO (08:21)
[2023-10-09] MEDS: dilTIAZem HCL CD 180 MG CAP.ER.24H PO (08:21)
[2023-10-09] MEDS: DULoxetine HCl 60 MG CAPSULE.DR PO (08:21)
[2023-10-09] MEDS: Famotidine 20 MG TABLET PO (08:21)
[2023-10-09] MEDS: Multivitamin TABLET 1 TAB PO (08:21)
[2023-10-09] MEDS: Dabigatran Etexilate Mesylate 150 MG CAPSULE PO (08:21)
[2023-10-09] MEDS: allopurinoL 100 MG TABLET 200 MG PO (08:21)
[2023-10-09] MEDS: Naltrexone HCl 50 MG TABLET PO (08:21)
[2023-10-09] MEDS: Folic Acid 1 MG TABLET PO (08:23)
[2023-10-09] MEDS: PHENobarbitaL 30 MG TABLET PO (08:23)
[2023-10-09] MEDS: Digoxin 0.125 MG TABLET PO (08:23)
[2023-10-09] MEDS: Ascorbic Acid 500 MG TABLET PO (08:23)
[2023-10-09] MEDS: Metoprolol Tartrate 50 MG TABLET PO (08:23)
[2023-10-09] MEDS: buPROPion HCl XL 150 MG TAB.ER.24H PO (08:23)
[2023-10-09] MEDS: Thiamine HCL 100 MG TABLET PO (08:23)
[2023-10-09] MEDS: lisinopriL 10 MG TABLET PO (08:30)
[2023-10-09] MEDS: 0.9 % Sodium Chloride Flush 3 ML SYRINGE IVFLUSH (08:30)
--- NOTE | 2023-10-09 10:22 | HO.WOUND ---
Wound Consult: Initial 68yr old?admitted [place] [facility] [place] - See progress notes and H&P for detailed history.? Wound consult placed for Left BKA site and Right Lower Leg wounds POA.? Patient agreeable to assessment and photo documentation.? Patient reports he follows with [facility] [place] clinic for care - He reports he had an appointment scheduled for today and has since cancelled the appointment - patient aware he should follow up with outpt clinic at time of d/c. Left BKA Site Etiology: ??Diabetic Wound Present on Admission Measurements: see charting for details Wound Bed: full thicknes tissue loss - small adherent yellow pale slough - pink moist wound bed Drainage / Odor: no odor yellow small amount of drainage Edges: ? epibole Delmi wound: [place] resolving erythema ? No Induration, Fluctuance or Warmth noted Pain: denies Goals of Treatment: ? Durafiber ag for moisture managment Right Rodriges Etiology: ??Venous / Diabetic Wound Present on Admission Measurements: see charting for details Wound Bed: dry scab some fluctuance noted centrally Drainage / Odor: None Edges: ? irregular Delmi wound: [place] resolving erythema and hyperpigmentation noted ? No Induration, Fluctuance or Warmth noted Pain: denies Goals of Treatment: ? Xeroform for moist wound healing Right Foot Etiology: ? Diabetic Wound Present on Admission Measurements: see charting for details Wound Bed: dry stable scab Drainage / Odor: None Edges: ? irregular Delmi wound: hyperpigmentation noted ? No Induration, Fluctuance or Warmth noted Pain: denies Goals of Treatment: ? No topical intervention needed at this time Right Heel Etiology: ? Diabetic Wound Present on Admission Measurements: see charting for details Wound Bed: dry stable scab Drainage / Odor: None Edges: ? irregular Delmi wound: Dry and intact ? No Induration, Fluctuance or Warmth noted Pain: denies Goals of Treatment: ? Off Load pressure Recommendations: 1. Turn and Reposition every 2 hours and as needed for patient comfort.? Use pillows or wedges to support off loading positions. 2. Off Load all bony prominences with use of pillows and heel boots if needed.? Apply Preventative foams where needed. ? 3. Monitor for incontinence and moisture control, use barrier creams when needed for prevention and treatment. 4. Provide adequate and supplemental nutrition.? 5. Order or Continue low air loss mattress. 6. When applicable maintain blood glucose levels per Providers order. 7. Left BKA site - Cleanse with Ns moist gauze, Pat dry. Apply skin prep to periwound. Lightly pack with Durafiber AG cover with foam dressing and change every 3 days. 8. Right Heel - Off Load pressure - [place] with Betadine allow to dry. Do not cover with foam dressing as this may donate moisture. If needed may cover with dry gauze and secure with tape. 9. Right Rodriges - Cleanse with NS, Cover with xeroform cover with foam dressing and change every other day. Re-consult wound care Nurse for wound deterioration or wound changes.
[2023-10-09 10:56] VITALS: BP 144/93; PULSE 72; RESP 19; TEMP 36.3; O2SAT 96
--- NOTE | 2023-10-09 10:56 | P.DS_ITS ---
DS: Providers Provider Date of Service: 10/09/23 Date of admission: 10/06/23 17:17 Primary care physician: Nikole Mauricio MD Consults: 10/06/23 17:22 Addiction Medicine Routine Consulting Provider: Addiction Covering Reason for consultation: Alcohol use disorder 10/06/23 17:35 Consult to Wound Care Routine Reason for consultation: Chronic left stump and right lower extremity wounds 10/07/23 03:44 Consult to Wound Care Routine Reason for consultation: wounds to left stump right foot and lower leg DS: Diagnosis Discharge Diagnosis (1) Hypomagnesemia: Status: Acute (2) Alcohol withdrawal: Status: Acute DS: Summary Hospital Course Hospital Course: admission hpi Chief Complaint: High blood pressure, visual hallucinations Pt is a 68-year-old male with a PMH significant for? CAD, persistent AFib on Pradaxa, chronic osteomyelitis s/p left BKA, HTN, HLD, alcohol use disorder, [id number] type 2 diabetes, splenic marginal zone lymphoma, gout, BPH, and mood disorder who presents to the ED after visiting nurse found pt's blood pressure to be 152/102, and pt had tremors and visual hallucinations concerning for alcohol withdrawal. Pt reports drinking heavily, up to 1L of 80- proof vodka for the past three weeks due to increased life stressors including a ?nasty? divorce from his . Last drink two days ago on Monday afternoon. Starting last night and more pronounced this morning, pt has had diaphoresis, minor upper extremity tremors, increased anxiety, nausea, and dry heaving. Also endorses visual hallucinations, including seeing bugs on the cline and small animals that look like lizards with long tails eating away at his skin. Also states saw a man and boy emerging up to their torsos from chronic left stump wound; they were smiling and waving at him. Denies fever, chills. No abdominal pain. Denies chest pain/pressure or palpitations. No headache. Denies SOB or ALBRECHT. Of note, pt with left shoulder fracture after fall at home. Is set to have shoulder replacement surgery with Dr. Newton. In the ED pt's vitals were stable and WNL. Labs were significant for magnesium of 1.3, bilirubin 1.9, and alk-phos 158.No leukocytosis. Stable H&H. Ammonia WNL at 33. Renal function baseline. INR mildly elevated at 1.2. Pt mildly elevated at 14.8. Ethyl alcohol levels undetectable. CT?of head showed no evid ence of space-occupying lesion or acute cerebral infarction, but did show unchanged mild age-related cerebral atrophy with likely microangiopathy and unchanged bilateral medial basal ganglia calcifications. EKG demonstrated atrial fibrillation without evidence of significant ST elevations or depressions. Pt was treated with IVF and started on phenobarb protocol. Pt will be admitted to the hospital for treatment and further evaluation of acute alcohol withdrawal. Hospital course: Acute alcohol withdrawal: He was treated with phenobarbital per protocol, and at the present time, his symptoms of withdrawal have resolved. The addiction team consulted with him and provided resources for outpatient follow-up. He had hypomagnesemia as a result of chronic alcohol use, which was treated and has resolved. 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 Continue wound care as before. Left shoulder fracture: Reports he will undergo shoulder replacement surgery with Dr. Newton. Follow up outpatient with ortho. Persistent AFib: Continue Pradaxa, digoxin, diltiazem, and metoprolol. Hypertension: Blood pressure has been on the higher side, so Lisinopril is being increased to 10 mg. Hyperlipidemia: Continue statin. [id number] type 2 diabetes: To resume medication. He states he gets no hypoglycemia at home and takes his medications as prescribed. Time Attestation Discharge Coordination Time (in mins): 40 Quality: Safe Use of Opioids Does Pt have an Active Cancer Diagnosis on the Problem List?: No Quality: Stroke Does the patient have a stroke diagnosis?: No Physical Exam Vital Signs: Vital Signs: Selected Entries 10/09/23 10:56 Temperature 97.4 F Pulse Rate 72 Respiratory Rate 19 Blood Pressure 144/93 H Pulse Oximetry 96 Oxygen Delivery Me thod Room Air General: AO X 3, no acute distress Resp: CTA bilateral CVS: S1,S2,RRR GI: +BS, NT, no distention Skin: s/p L BKA, stump wound clean no signs of infection Neuro: motor grossly intact Psych: appropriate affect DS: Data Data Completed and Pending Labs on day of discharge: Laboratory Results - last 24 hr 10/09/23 06:09 Hold Purple Top SEE NOTE Sodium 139 Potassium 3.4 Chloride 103 Carbon Dioxide 28 Anion Gap 11 L BUN 13 Creatinine 0.80 Estim Creat Clear Calc 105.6 Estimated GFR > 60 Random Glucose 120 H Calcium 9.1 Discharge Plan Discharge Anticipated Discharge Date/Time: 10/09/23 11:08 Patient Disposition: Home Health Service Discharge Diagnosis: Alcohol withdrawal, Hypomagnesemia Referrals: [facility] [Outside] - 1 Week Nikole Mauricio MD [Primary Care Provider] - 1 Week Discharge Medications: New lisinopril 10 mg Tablet 10 mg PO DAILY Qty: 90 0RF Protocol: Hold for SBP< HOLD for SBP < : 90 metformin 500 mg tablet 500 mg PO BID Qty: 180 0RF Continued (DME) blood-glucose meter [FreeStyle Lite Meter] Kit See Rx Instructions .ROUTE .MEDSUPPLY Qty: 1 0RF Rx Instructions: As directed 3x/day (DME) FreeStyle Lite Strips Strip See Rx Instructions .Route Qty: 300 3RF Rx Instructions: Test blood sugar TID (DME) lancets [FreeStyle Lancets] 28 gauge misc See Rx Instructions .Route Qty: 300 3RF Rx Instructions: Test blood sugar TID zinc gluconate 50 mg tablet 50 mg PO DAILY Qty: 90 3RF thiamine HCl (vitamin B1) 100 mg tablet 100 mg PO DAILY Qty: 90 3RF (DME) blood pressure test kit-medium Kit See Rx Instructions .Route Qty: 1 0RF Rx Instructions: As directed to monitor BP at home ascorbic acid (vitamin C) [Vitamin C] 500 mg tablet 500 mg PO DAILY Qty: 90 3RF folic acid 1 mg tablet 1 mg PO DAILY Qty: 90 3RF Farxiga 10 mg tablet 10 mg PO DAILY Qty: 90 1RF dabigatran etexilate [Pradaxa] 150 mg capsule 150 mg PO BID 90 Days Qty: 180 3RF metoprolol tartrate 50 mg tablet 50 mg PO BID 90 Days Qty: 180 3RF digoxin 125 mcg (0.125 mg) tablet 125 mcg PO DAILY 90 Days Qty: 90 3RF diltiazem HCl 180 mg capsule,ext.rel 24h degradable 180 mg PO DAILY 90 Days Qty: 90 3RF atorvastatin 20 mg tablet 20 mg PO BEDTIME 30 Days Qty: 30 3RF (DME) bedside commode Kit See Rx Instructions .Route Qty: 1 0RF Rx Instructions: As directed (DME) wheelchair-16 inch wide with removable footrests 16 inch wide See Rx Instructions .Route .MEDSUPPLY Qty: 1 0RF Rx Instructions: As directed ciclopirox 0.77 % cream 1 appl topical BID buspirone 10 mg Tablet 10 mg PO BID hydroxyzine HCl 25 mg tablet 25 mg PO TID PRN (Reason: Anxiety) bupropion HCl 150 mg tablet extended release 24 hr 150 mg PO DAILY Trulicity 3 mg/0.5 mL pen injector 3 mg subcut WE allopurinol 100 mg tablet 200 mg PO DAILY (DME) FreeStyle Erika 14 Day Sensor Kit See Rx Instructions .Route Qty: 1 4RF Rx Instructions: As directed multivitamin Tablet 1 tab PO DAILY duloxetine 60 mg capsule,delayed release(DR/EC) 60 mg PO DAILY naltrexone 50 mg tablet 50 mg PO DAILY Discontinued metformin 500 mg tablet 1,000 mg PO BID Qty: 180 3RF lisinopril 5 mg tablet 5 mg PO DAILY Qty: 90 2RF Discharge Orders: Discharge Order (Routine); Ordered 10/09/23 Ordered By: Maynor Henderson Diet: Diabetic diet Activity on Discharge: As tolerated Stand Alone Forms: Patient Portal Discharge page Print Language: Andorran Care Plan Goals: recovery from alcohol withdrawal, and alcoholism Health Concerns: alcohol withdrawal hypomagnesemia uncontrolled Blood pressure Plan of Treatment: take your medication as recommended Lisinopril increased to 10 mg metformin dose has been reduced to 500 mg twice daily Avoid alcohol alcohol and follow through the resources given to you continue wound care as before Assessment: see above Discharge Date/Time: 10/09/23 13:40
[2023-10-09 11:24] LABS: Magnesium 1.6 mg/dL (1.6-2.6)
[2023-10-09 11:36] LABS: Glucose, Whole Blood 137 mg/dL (60-115)
[2023-10-09 11:44] LABS: Estimated Average Glucose 117 mg/dL; Hemoglobin A1c % 5.7 % (<6.0)
--- NOTE | 2023-10-09 11:57 | MHC.CM.PN ---
Addendum entered by Christi Foley 10/09/23 12:34: Patient was active with Demetri BURGESS, who has been notified of today's dc. Original Note: Patient has been medically cleared for dc to home today, self care. Last IMM addressed on 10/07/2023.
--- NOTE | 2023-10-09 12:26 | MHC.CM.PN ---
Patient will dc to home today at 1:30 via [facility] transport auth # is [id number].
== END 2023-10-09 13:40 | disposition home health service (06) | DRG 897 ==
LOC: HO.ED 17:00 → HO.EDOVER 17:33 → HO.IMC 19:30
PROVIDERS: Hospitalist; Admitting Provider Student in an Organized Health Care Education/Training Program; Emergency Provider Emergency Medicine Emergency Medical Services; PCP Internal Medicine; Visit Provider Internal Medicine
DX: F10.132 Alcohol abuse with withdrawal with perceptual disturbance (principal); D80.1 Nonfamilial hypogammaglobulinemia; C83.07 Small cell B-cell lymphoma, spleen; I48.19 Other persistent atrial fibrillation; L97.829 Non-pressure chronic ulcer of other part of left lower leg with unspecified severity; L97.819 Non-pressure chronic ulcer of other part of right lower leg with unspecified severity; I25.10 Atherosclerotic heart disease of native coronary artery without angina pectoris; N40.0 Benign prostatic hyperplasia without lower urinary tract symptoms; E11.9 Type 2 diabetes mellitus without complications; I10 Essential (primary) hypertension; E78.5 Hyperlipidemia, unspecified; M10.9 Gout, unspecified; Z89.512 Acquired absence of left leg below knee; Z79.01 Long term (current) use of anticoagulants; Z79.84 Long term (current) use of oral hypoglycemic drugs; Z79.85 Long-term (current) use of injectable non-insulin antidiabetic drugs; Z79.899 Other long term (current) drug therapy
CPT/HCPCS: 36415; 70450; 80048; 80076; 80307; 81001; 82140; 82947; 83036; 83735; 85025; 85610; 93005; 99285; J2560; J3475

== ENCOUNTER → 2023-10-06 13:59 | Outpatient (BNV) | payer OTHER, SELFPAY | PROVIDERS: Admitting Provider Student in an Organized Health Care Education/Training Program; Emergency Provider Emergency Medicine Emergency Medical Services; PCP Internal Medicine; Visit Provider Internal Medicine Cardiovascular Disease | DX: R53.1 Weakness (principal); I48.91 Unspecified atrial fibrillation | CPT/HCPCS: 93010 ==

== ENCOUNTER → 2023-10-06 17:17 | Outpatient (BNV) | payer OTHER, SELFPAY | PROVIDERS: Admitting Provider Student in an Organized Health Care Education/Training Program; Emergency Provider Emergency Medicine Emergency Medical Services; PCP Internal Medicine; Visit Provider Student in an Organized Health Care Education/Training Program | DX: F10.939 Alcohol use, unspecified with withdrawal, unspecified (principal); E83.42 Hypomagnesemia; I10 Essential (primary) hypertension | CPT/HCPCS: 99222; 99232; 99233; 99239 ==

== ENCOUNTER 2023-10-23 15:04 | Emergency (ER) | payer OTHER, SELFPAY ==
--- NOTE | ~2023-10-23 | CT_ITS ---
EXAMINATION: CT facial bones wo IV con, CT head/brain wo IV con, CT cervical spine wo IV con INDICATION INFORMATION: Reason for Exam fall, right facial strike COMPARISON: CT head without contrast 10/06/2023, CT cervical spine without contrast 06/01/2023 TECHNIQUE: Separate noncontrast CT examinations of the head, face, and cervical spine were performed. Coronal and sagittal images were created for each examination at the technologist workstation. This CT examination was performed using dose optimization techniques as appropriate, variously including the following: *Automated exposure control *Adjustment of mA and/or kV according to patient size (this includes techniques or standardized protocols for targeted exams where dose is matched to indication/reason for exam; i.e. extremities or head) *Use of iterative reconstruction technique DLP: 1500.44 mGy-cm FINDINGS: Head: No acute osseous or soft tissue abnormality. The mastoid air cells are clear. There is no evidence of acute intracranial hemorrhage or territorial infarction. Calcifications involving the bilateral basal ganglia and in the posterior fossa in the region of the dentate nuclei. No abnormal mass effect or midline shift is seen. Francis to white matter differentiation is well preserved. No extra-axial fluid collections are identified. No hydrocephalus. Proportional prominence of the ventricles and sulcal spaces is consistent with mild volume loss. Patchy periventricular and deep white matter hypoattenuation is consistent with moderate small vessel ischemic changes. Small chronic left cerebellar infarct. Facial Bones: There is no evidence of an acute facial bone fracture. Trace ethmoid and maxillary sinus mucosal thickening. There is an 8 mm within a left anterior ethmoid air cell which may represent a synovitis. Leftward deviation and osseous spurring of the nasal septum. No significant dental disease is visualized. The orbits are unremarkable in appearance. Cervical spine: There is no evidence of acute cervical spine fracture. Vertebral bodies remain normal in height. Stable alignment with trace anterolisthesis of C4 on C5 and trace retrolisthesis of C5 on C6. Advanced arthrosis of the atlantodental articulation with hypertrophic bony changes. There is multilevel moderate to advanced cervical spondylosis. Advance arthropathy of the left C2-C3 facet joint is again noted. No prevertebral soft tissue abnormality is identified. Grossly stable partially visualized left pretracheal calcified soft tissue nodule inferior to the thyroid gland (series 12 image 58) measuring up to 1.3 cm. There is also partially visualized a prominent right paratracheal lymph node at this level (series 12 image 58). Atherosclerotic calcifications involving the right greater than left carotid bifurcations. Visualized portions of the lung apices are unremarkable. The thyroid gland is unremarkable. CT/CT cervical spine wo IV con IMPRESSION: 1. No acute intracranial abnormality including hemorrhage, mass effect, hydrocephalus, or acute territorial edematous infarction. 2. No cervical spine fracture or traumatic malalignment. 3. No facial fracture. 4. Partially visualized left pretracheal calcified soft tissue nodule measuring up to 1.3 cm, likely a lymph node, inferior to the thyroid gland. There is also a prominent right paratracheal lymph node at this level. Findings are nonspecific. Recommend further assessment with nonemergent contrast-enhanced CT of the neck.
--- NOTE | 2023-10-23 15:14 | ED.GENADULT ---
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 While watching the [employer] today, he leaned forward in his wheelchair and fell out. Reports right frontal head strike on the floor. Denies LOC. At present his only physical complaint is headache. Denies sustaining any other injury during the fall. Admits to a similar episode 2 weeks ago where he fell out of his wheelchair and struck the right side of his head. He was medically evaluated at that time with unremarkable imaging. Patient is a daily drinker. Reports consuming a large amount of vodka daily however can not quantify the amount. His last drink was prior to arrival in the ED. Reports history of ETOH withdrawal and DT. Additionally he reports feeling depressed. States that his of 40 years is him and left the home 1 week ago. Reports that his daughter recently had a child and he was not invited to visit the child. Endorses passive SI without specific plan. Denies HI. Denies AH/TH/VH. Denies illicit substance use. Related Data Home Medications ?Medication ?Instructions ?Recorded ?Confirmed duloxetine 60 mg capsule,delayed 60 mg PO DAILY 12/21/19 10/06/23 release multivitamin 1 tab PO DAILY 02/27/20 10/06/23 allopurinol 100 mg tablet 200 mg PO DAILY 02/08/21 10/06/23 naltrexone 50 mg tablet 50 mg PO DAILY Alcohol Withdrawal 08/24/22 10/06/23 bupropion HCl 150 mg 24 hr tablet, 150 mg PO DAILY 06/01/23 10/06/23 extended release dulaglutide 3 mg/0.5 mL 3 mg subcut WE 06/01/23 10/06/23 subcutaneous pen injector (Trulicity) hydroxyzine HCl 25 mg tablet 25 mg PO TID PRN Anxiety 03/07/24 07/12/24 buspirone 10 mg tablet 10 mg PO BID 10/06/23 10/06/23 ciclopirox 0.77 % topical cream 1 appl topical BID 10/06/23 10/06/23 Previous Rx's ?Medication ?Instructions ?Recorded blood-glucose meter (FreeStyle #1 ea 04/23/20 Lite Meter kit) blood sugar diagnostic (FreeStyle #300 ea 02/11/21 Lite Strips) lancets 28 gauge (FreeStyle #300 ea 02/11/21 Lancets) zinc gluconate 50 mg tablet 50 mg PO DAILY #90 tabs 05/03/22 thiamine HCl (vitamin B1) 100 mg 100 mg PO DAILY #90 tabs 07/12/22 tablet flash glucose sensor (FreeStyle #1 ea 07/14/22 Erika 14 Day Sensor kit) blood pressure test kit-medium #1 ea 08/03/22 ascorbic acid (vitamin C) 500 mg 500 mg PO DAILY #90 tabs 10/17/22 tablet (Vitamin C) folic acid 1 mg tablet 1 mg PO DAILY #90 tabs 05/17/23 dapagliflozin propanediol 10 mg 10 mg PO DAILY #90 tabs 06/15/23 tablet (Farxiga) atorvastatin 20 mg tablet 20 mg PO BEDTIME 30 days #30 tabs 08/30/23 dabigatran etexilate 150 mg 150 mg PO BID 90 days #180 caps 08/30/23 capsule (Pradaxa) digoxin 125 mcg (0.125 mg) tablet 125 mcg PO DAILY 90 days #90 caps 08/30/23 diltiazem HCl 180 mg 180 mg PO DAILY 90 days #90 caps 08/30/23 capsule,extended release 24 hr, controlled metoprolol tartrate 50 mg tablet 50 mg PO BID 90 days #180 tabs 08/30/23 commode (bedside commode) #1 ea 09/29/23 wheelchair-16 inch wide with #1 ea 09/29/23 removable footrests lisinopril 10 mg tablet 10 mg PO DAILY #90 tabs 10/09/23 metformin 500 mg tablet 500 mg PO BID #180 tabs 10/09/23 Allergies Allergy/AdvReac Type Severity Reaction Status Date / Time vancomycin [VANCOMYCIN] Allergy Severe ANGIOEDEMA Verified 10/23/23 15:34 Sulfa (Sulfonamide Allergy Intermediate Rash Verified 10/23/23 15:34 Antibiotics) sulfamethoxazole Allergy rash Verified 10/23/23 15:34 [From Bactrim] trimethoprim [From Bactrim] Allergy Rash Verified 10/23/23 15:34 Review of Systems Review of Systems: Constitutional: No fever, chills, fatigue, night sweats, weight changes ENT/Mouth: No ear pain, hearing loss, nasal congestion, sinus pain, rhinorrhea, sore throat Eyes: No eye pain, swelling, redness, vision changes, discharge Cardio: No chest pain, palpitations, ALBRECHT, orthopnea, peripheral edema Pulm: No SOB, cough, sputum, wheezing, dyspnea, hemoptysis GI: No nausea, vomiting, hematemesis, abdominal pain, diarrhea, constipation, hematochezia, melena : No irregular bleeding, dysuria, frequency, urgency, hesitancy, hematuria, flank pain, urinary flow changes, urinary incontinence or retention MSK: No back pain, neck pain, joint pain, myalgias Skin: No lesions, rashes Neuro: No weakness, numbness, paresthesias, LOC, dizziness, +headache Psych: No anxiety/panic, depression, SI/HI, AH/VH All other systems reviewed and are negative. [facility] Past Medical History Attestation statement: The following information was validated with the patient. Source: old records reviewed and nursing notes reviewed Medical History Rosacea Annual physical exam Persistent atrial fibrillation Orthostatic hypotension Lymphoma Depression Essential hypertension Hyperlipidemia LDL goal <100 Obesity due to excess calories BMI 30.0-30.9,adult DM (diabetes mellitus) ETOH abuse BPH associated with nocturia CAD (coronary artery disease) Long-term current use of intravenous immunoglobulin (IVIG) GERD (gastroesophageal reflux disease) Hypogammaglobulinemia Diabetic eye exam Adjustment disorder PAF (paroxysmal atrial fibrillation) Gout Chronic osteomyelitis Splenic marginal zone b-cell lymphoma EMIL (obstructive sleep apnea) Surgical History Status post below-knee amputation of left lower extremity Osteomyelitis Osteomyelitis History of esophagogastroduodenoscopy (EGD) History of colonoscopy History of bunionectomy History of cardiac cath Family History Family History Father Diabetes Mother Liver cancer Maternal Grandfather CVD (cardiovascular disease) Brother Myocardial infarction Social History Social History Household Members: None Housing: House Do you presently have visiting nurse or other home services: Yes Alcohol intake: current Alcohol intake frequency: 3 or more drinks per day Alcohol type: hard liquor Patient Tobacco Use Status: Never used Tobacco Smoked in Last 30 Days: No e-Cigarette/Vaping Use: Never Used Second Hand Smoke Exposure: No Use of substances other than those prescribed or required for medical reasons: No Advance Directives: Yes Advance Directives on File: Yes Advance Directives Date on File: 06/02/23 Do you have a plan to hurt others: No Plan service: No Current occupational status: employed 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 Slightly hypertensive to 168/95. Const Other: Patient is intermittently tearful on exam. odor of alcohol noted to breath. General: cooperative and no acute distress Orientation/consciousness: patient oriented x3 Limitations: no limitations HENMT Head: Yes normal to inspection, Yes No palpable skull fracture present, Yes normocephalic, Yes atraumatic, No Nixon's sign, No raccoon eyes and No periorbital ecchymosis Face and sinus: Yes normal facial exam Eyes General: appearance normal, both eyes and all related structures Pupils: Equal, round and reactive pupils present Neck Other: No midline cervical spinous tenderness or step-off deformity Neck: Yes normal visual inspection and Yes full ROM Chest Chest palpation & inspection: normal inspection of the chest and normal palpation of entire chest wall Resp Effort & Inspection: normal respiratory effort and able to speak in complete sentences Auscultation: clear to auscultation bilaterally Cardio Rate: regular rate Rhythm: regular rhythm General: Yes no CVA tenderness Back/Spine/Pelvis Other: No midline spinous tenderness or step off deformity. No paraspinal muscle tenderness. Back: no CVA tenderness Skin General skin exam: no rashes or lesions noted Neuro General: patient oriented x3 Cranial nerves: Yes Equal, round and reactive pupils present Motor exam (neuro): 5/5 motor strength present throughout, Pronator motor function not present, no tremor noted, no asterixis and Motor fasciculations not present Pupils: Normal pupillary reactivity/response: bilateral Extrem Other: + left BKA. chronic healing wounds to BKA site and right foot. no open wounds. Course Course Course Narrative: [id number]-- patient stable at the end of my shift. Sign-out given to Margaret VELASCO pending labs, UA, imaging and disposition. Reevaluation(s) Reevaluation #1: CBC with a normocytic anemia. Chemistry no acute findings meeting intervention. Normal CPK. Ethanol normal. CT head, facial bones and cervical spine unremarkable. Left pretracheal calcified soft tissue nodule, will have him follow-up with PCP. Patient likely has a concussion. At this time patient to be placed into observation to allow more time to be evaluated by behavioral health team for anxiety, depression and passive SI. Time: 20:57 Reevaluation #2: Patient feeling a lot better. He is not suicidal not homicidal seen by the care team who cleared him, they do not feel as though patient is meeting criteria for inpatient hospitalization. He is not suicidal he has no plan. He is trying to stop drinking. He is just going through divorce and familial issues. Educated patient on diagnosis and treatment plan, answered all question, patient verbalizes understanding. At this time patient will be discharged home, advised to return with new or worsening symptoms. Educated on worrisome signs and symptoms and when to return. At this time I feel comfortable discharge home. Time: 00:50 Reevaluation #3: Patient's blood pressure elevated when he is being discharged by EMS however he has not taken his home meds. Will give metoprolol as well as lisinopril and then BP to be repeated in 5 minutes. No signs of stroke, posterior stroke patient alert and oriented x4. Feeling well no headache, vision changes, dizziness or weakness. Would like to go home. 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 vital signs are stable. Hypertensive to 168/95. Patient is intermittently tearful on exam. Head is normocephalic atraumatic. No palpable skull fracture. PERRLA. EOMs intact without entrapment. Unable to assess ambulation as patient uses wheelchair at baseline secondary to left BKA. Chronic wounds noted to left BKA site and right foot. Differential diagnosis includes acute etoh intoxication, headache, migraine, concussion, rhabdo. Lower suspicion for ICH, CVA/TIA, cervical subluxation or fracture, skull fracture, etoh withdrawal. Plan for labs, UA, ethanol, utox, ciwa, imaging of head/c spine/ face. Differential Diagnosis Differential Diagnoses: The differential diagnosis associated with the presentation includes As above Admission/Observation Consideration of admission/observation: Escalation of care including admission/observation considered Lab Data [facility] Lab Attestation statement: I reviewed the patient's lab results. as above. 10/23/23 18:14 10/23/23 18:14 Labs: Lab Results 10/23/23 10/23/23 Range/Units 18:14 20:57 WBC 6.2 (4.8-10.8) X10*3/uL RBC 4.34 L (4.60-5.80) X10*6/uL Hgb 13.7 L (14.0-18.0) g/dl Hct 40.0 L (42.0-52.0) % MCV 92.2 (80.0-98.0) fL MCH 31.6 (27.0-33.0) pg MCHC 34.3 (31.0-36.0) g/dl RDW 20.0 H (11.0-16.0) % Plt Count 211 (160-400) X10*3/uL MPV 10.1 (9.4-12.4) fL Immature Gran % (Auto) 0.3 (0.0-0.4) % Neut % (Auto) 41.0 L (45-73) % Lymph % (Auto) 35.2 (20-40) % [place] % (Auto) 12.8 H (2-11) % Eos % (Auto) 8.5 H (0-4) % Baso % (Auto) 2.2 H (0-2) % Lymph # (Auto) 2.2 (1.2-4.9) X10*3/uL [place] # (Auto) 0.8 (0.1-1.2) X10*3/uL Eos # (Auto) 0.5 H (0.0-0.4) X10*3/uL Baso # (Auto) 0.1 (0.0-0.2) X10*3/uL Abs Immat Gran (auto) 0.02 (0.00-0.03) X10*3/uL Absolute Neuts (auto) 2.6 (2.0-8.3) x10*3/uL Absolute Nucleated RBC 0.000 (0.0-0.012) X10*3/uL Nucleated RBC % (auto) 0.0 (0.0-0.2) /100WBC Sodium 148 H (135-145) mmol/L Potassium 4.5 D (3.3-5.1) mmol/L Chloride 107 (96-108) mmol/L Carbon Dioxide 32 H (22-29) mmol/L Anion Gap 14 (12-20) BUN 9 (9-16) mg/dL Creatinine 0.79 (0.5-1.4) mg/dL Estim Creat Clear Calc 108.2 Estimated GFR > 60 Random Glucose 97 (60-115) mg/dL Calcium 9.1 (8.4-10.2) mg/dL Magnesium 1.6 (1.6-2.6) mg/dL Total Bilirubin 0.5 (0.0-1.0) mg/dL AST 27 (5-37) U/L ALT 20 (0-40) U/L Alkaline Phosphatase 137 H (39-117) U/L Total Creatine Kinase 115 (38-174) U/L Total Protein 6.8 (6.5-8.0) g/dL Albumin 4.4 (3.5-5.0) g/dL Lipase 30 (8-78) U/L Urine Color Yellow Urine Appearance Clear Urine pH >= 9.0 (5.0-9.0) Ur Specific [place] 1.015 (1.005-1.025) Urine Protein Trace (Neg-Trace) mg/dL Urine Glucose (UA) Negative (Negative) mg/dL Urine Ketones Negative (Negative) mg/dL Urine Blood Negative (Negative) Urine Nitrite Negative (Negative) Ur Leukocyte Esterase Trace H (Negative) Urine RBC 0-2 (0-2) /HPF Urine WBC 6-10 H (0-5) /HPF Ur Squamous Epith Cells 0-2 (0-2) /HPF Urine Bacteria 4+ (None Seen) Hyaline Casts 0-2 (0-2) /LPF Urine Opiates Screen Not Detected (Not Detect) Ur Buprenorphine Scrn Not Detected (Not Detect) ng/mL Ur Oxycodone Screen Not Detected (Not Detect) ng/mL Urine Methadone Screen Not Detected (Not Detect) ng/mL Urine Fentanyl Screen Not Detected (Not Detect) Ur Barbiturates Screen POSITIVE H (Not Detect) Ur Phencyclidine Scrn Not Detected (Not Detect) Ur Amphetamines Screen Not Detected (Not Detect) U Benzodiazepines Scrn Not Detected (Not Detect) Urine Cocaine Screen Not Detected (Not Detect) U Marijuana (THC) Screen Not Detected (Not Detect) Ethyl Alcohol 197 mg/dL Independent Interpretation I performed an independent interpretation of an: CT Scan Interpretation: CT head/brain without bleed, agree with radiologist's interpretation. CT c spine without acute fracture, agree with radiologist's interpretation. CT facial bones without fracture, agree with radiologist's interpretation. Radiology Impression Discussion of test interpretation with radiology: I have reviewed the radiologist's reading. Radiologist Impression: EXAMINATION: CT facial bones wo IV con, CT head/brain wo IV con, CT cervical spine wo IV con INDICATION INFORMATION: Reason for Exam fall, right facial strike COMPARISON: CT head without contrast 10/06/2023, CT cervical spine without contrast 06/01/2023 TECHNIQUE: Separate noncontrast CT examinations of the head, face, and cervical spine were performed. Coronal and sagittal images were created for each examination at the technologist workstation. This CT examination was performed using dose optimization techniques as appropriate, variously including the following: *Automated exposure control *Adjustment of mA and/or kV according to patient size (this includes techniques or standardized protocols for targeted exams where dose is matched to indication/reason for exam; i.e. extremities or head) *Use of iterative reconstruction technique DLP: 1500.44 mGy-cm FINDINGS: Head: No acute osseous or soft tissue abnormality. The mastoid air cells are clear. There is no evidence of acute intracranial hemorrhage or territorial infarction. Calcifications involving the bilateral basal ganglia and in the posterior fossa in the region of the dentate nuclei. No abnormal mass effect or midline shift is seen. Francis to white matter differentiation is well preserved. No extra-axial fluid collections are identified. No hydrocephalus. Proportional prominence of the ventricles and sulcal spaces is consistent with mild volume loss. Patchy periventricular and deep white matter hypoattenuation is consistent with moderate small vessel ischemic changes. Small chronic left cerebellar infarct. Facial Bones: There is no evidence of an acute facial bone fracture. Trace ethmoid and maxillary sinus mucosal thickening. There is an 8 mm within a left anterior ethmoid air cell which may represent a synovitis. Leftward deviation and osseous spurring of the nasal septum. No significant dental disease is visualized. The orbits are unremarkable in appearance. Cervical spine: There is no evidence of acute cervical spine fracture. Vertebral bodies remain normal in height. Stable alignment with trace anterolisthesis of C4 on C5 and trace retrolisthesis of C5 on C6. Advanced arthrosis of the atlantodental articulation with hypertrophic bony changes. There is multilevel moderate to advanced cervical spondylosis. Advance arthropathy of the left C2-C3 facet joint is again noted. No prevertebral soft tissue abnormality is identified. Grossly stable partially visualized left pretracheal calcified soft tissue nodule inferior to the thyroid gland (series 12 image 58) measuring up to 1.3 cm. There is also partially visualized a prominent right paratracheal lymph node at this level (series 12 image 58). Atherosclerotic calcifications involving the right greater than left carotid bifurcations. Visualized portions of the lung apices are unremarkable. The thyroid gland is unremarkable. CT/CT facial bones/ brain/ cspine wo IV con IMPRESSION: 1. No acute intracranial abnormality including hemorrhage, mass effect, hydrocephalus, or acute territorial edematous infarction. 2. No cervical spine fracture or traumatic malalignment. 3. No facial fracture. 4. Partially visualized left pretracheal calcified soft tissue nodule measuring up to 1.3 cm, likely a lymph node, inferior to the thyroid gland. There is also a prominent right paratracheal lymph node at this level. Findings are nonspecific. Recommend further assessment with nonemergent contrast-enhanced CT of the neck. Independent Historian Clinical information obtained from an independent historian. History obtained from or confirmed by: EMS External Record Review External record reviewed: Inpatient record, Office record, Outpatient record, Prior outpatient labs, Prior outpatient radiology, Primary care record and Outside ED record Chronic Conditions Patient?s care impacted by: Other (etoh use disorder) Social Determinants Patient?s care significantly limited by Social Determinants of Health including: Alcoholism and drug addiction in family and Other Social Determinant of Health Critical Care Time Critical Care Time Critical Care Time: No Discharge Plan Discharge Clinical Impression: ETOH abuse, Fall, Headache, Concussion, Depression Patient Disposition: Home, Self-Care Instructions: Depression (ED), Concussion (ED), Abuse of Alcohol (DC), Acute Headache (ED), Fall Prevention (ED) Additional Instructions: Take your medications as prescribed. If you were prescribed antibiotics today, it is important that you take your medication to their entirety, do not skip any doses, do not finish them early. Follow-up with your primary care provider this week. Return to the emergency department with new or worsening symptoms. Such as fevers, chills, chest pain, shortness of breath, nausea, vomiting, dizziness, headache, vision changes, lethargy In case of emergency call 911 If you are feeling suicidal or homicidal or start to have hallucinations, please call 911 immediately. Prescriptions: No Action (DME) blood-glucose meter [FreeStyle Lite Meter] Kit See Rx Instructions .ROUTE .MEDSUPPLY Qty: 1 0RF Rx Instructions: As directed 3x/day (DME) FreeStyle Lite Strips Strip See Rx Instructions .Route Qty: 300 3RF Rx Instructions: Test blood sugar TID (DME) lancets [FreeStyle Lancets] 28 gauge misc See Rx Instructions .Route Qty: 300 3RF Rx Instructions: Test blood sugar TID zinc gluconate 50 mg tablet 50 mg PO DAILY Qty: 90 3RF thiamine HCl (vitamin B1) 100 mg tablet 100 mg PO DAILY Qty: 90 3RF (DME) blood pressure test kit-medium Kit See Rx Instructions .Route Qty: 1 0RF Rx Instructions: As directed to monitor BP at home ascorbic acid (vitamin C) [Vitamin C] 500 mg tablet 500 mg PO DAILY Qty: 90 3RF folic acid 1 mg tablet 1 mg PO DAILY Qty: 90 3RF Farxiga 10 mg tablet 10 mg PO DAILY Qty: 90 1RF dabigatran etexilate [Pradaxa] 150 mg capsule 150 mg PO BID 90 Days Qty: 180 3RF metoprolol tartrate 50 mg tablet 50 mg PO BID 90 Days Qty: 180 3RF digoxin 125 mcg (0.125 mg) tablet 125 mcg PO DAILY 90 Days Qty: 90 3RF diltiazem HCl 180 mg capsule,ext.rel 24h degradable 180 mg PO DAILY 90 Days Qty: 90 3RF atorvastatin 20 mg tablet 20 mg PO BEDTIME 30 Days Qty: 30 3RF (DME) bedside commode Kit See Rx Instructions .Route Qty: 1 0RF Rx Instructions: As directed (DME) wheelchair-16 inch wide with removable footrests 16 inch wide See Rx Instructions .Route .MEDSUPPLY Qty: 1 0RF Rx Instructions: As directed ciclopirox 0.77 % cream 1 appl topical BID buspirone 10 mg Tablet 10 mg PO BID lisinopril 10 mg Tablet 10 mg PO DAILY Qty: 90 0RF Protocol: Hold for SBP< HOLD for SBP < : 90 metformin 500 mg tablet 500 mg PO BID Qty: 180 0RF hydroxyzine HCl 25 mg tablet 25 mg PO TID PRN (Reason: Anxiety) bupropion HCl 150 mg tablet extended release 24 hr 150 mg PO DAILY Trulicity 3 mg/0.5 mL pen injector 3 mg subcut WE allopurinol 100 mg tablet 200 mg PO DAILY (DME) FreeStyle Erika 14 Day Sensor Kit See Rx Instructions .Route Qty: 1 4RF Rx Instructions: As directed multivitamin Tablet 1 tab PO DAILY duloxetine 60 mg capsule,delayed release(DR/EC) 60 mg PO DAILY naltrexone 50 mg tablet 50 mg PO DAILY Referrals: [facility] [Provider Group] - 2 days Nikole Mauricio MD [Primary Care Provider] - 2 days Print Language: Armenian
[2023-10-23 15:23] VITALS: BP 168/95; BP 190/88; PULSE 100; PULSE 97; RESP 18; O2SAT 97; BMI 33.2
[2023-10-23 18:21] LABS: Basophils Absolute Auto 0.1 X10*3/uL (0.0-0.2); Basophils Percent Auto 2.2 % (0-2); Eosinophils Absolute Auto 0.5 X10*3/uL (0.0-0.4); Eosinophils Percent Auto 8.5 % (0-4); Hemoglobin 13.7 g/dl (14.0-18.0); Imm Gran Abs Auto 0.02 X10*3/uL (0.00-0.03); Imm Gran Pct Auto 0.3 % (0.0-0.4); Lymphocytes Absolute Auto 2.2 X10*3/uL (1.2-4.9); Lymphocytes Percent Auto 35.2 % (20-40); Mean Corpuscular HGB Conc 34.3 g/dl (31.0-36.0); Mean Corpuscular Hemoglobin 31.6 pg (27.0-33.0); Mean Corpuscular Volume 92.2 fL (80.0-98.0); Mean Platelet Volume 10.1 fL (9.4-12.4); Monocytes Absolute Auto 0.8 X10*3/uL (0.1-1.2); Monocytes Percent Auto 12.8 % (2-11); Neutrophils Absolute Auto 2.6 x10*3/uL (2.0-8.3); Platelet Count 211 X10*3/uL (160-400); Red Blood Count 4.34 X10*6/uL (4.60-5.80); White Blood Count 6.2 X10*3/uL (4.8-10.8)
[2023-10-23 18:35] VITALS: BP 166/90; PULSE 113; RESP 16; TEMP 36.8; O2SAT 100
[2023-10-23 18:35] LABS: Ethanol 197 mg/dL
[2023-10-23 18:36] LABS: Alanine Aminotransferase 20 U/L (0-40); Albumin Level 4.4 g/dL (3.5-5.0); Alkaline Phosphatase 137 U/L (39-117); Anion Gap 14 (12-20); Aspartate Amino Transferase 27 U/L (5-37); Bilirubin Total 0.5 mg/dL (0.0-1.0); Blood Urea Nitrogen 9 mg/dL (9-16); Calcium 9.1 mg/dL (8.4-10.2); Carbon Dioxide 32 mmol/L (22-29); Chloride 107 mmol/L (96-108); Creatinine Clr Calc Pharmacy 108.2; Estimated Glomerular Filt Rate > 60; Glucose Random 97 mg/dL (60-115); Lipase 30 U/L (8-78); Magnesium 1.6 mg/dL (1.6-2.6); Potassium 4.5 mmol/L (3.3-5.1); Sodium 148 mmol/L (135-145); Total Protein 6.8 g/dL (6.5-8.0)
[2023-10-23 21:00] VITALS: BP 160/79; PULSE 113; RESP 14; TEMP 36.2; O2SAT 96
[2023-10-23 21:06] LABS: Appearance Urine Clear; Color Urine Yellow; Glucose Urine UA Negative (Negative); Leukocyte Esterase Urine Trace (Negative); Nitrite Urine Negative (Negative); PH >= 9.0 (5.0-9.0); Specific Gravity - Urine 1.015 (1.005-1.025); UMIC TRIGGER UACC YES; Urine Blood Negative (Negative); Urine Ketones Negative (Negative); Urine Protein Trace mg/dL (Neg-Trace)
[2023-10-23 21:14] LABS: Bacteria Urine 4+ (None Seen); Hyaline Casts Urine 0-2 /LPF (0-2); RBC Urine 0-2 /HPF (0-2); Squamous Epithelial Cell Urine 0-2 /HPF (0-2); UACC Culture Trigger YES
[2023-10-23 22:45] LABS: Amphetamine Screen Urine Not Detected (Not Detect); Barbiturates, Urine POSITIVE (Not Detect); Benzodiazepines Screen Urine Not Detected (Not Detect); Buprenorphine Scr Not Detected (Not Detect); Cannabinoid Screen Urine Not Detected (Not Detect); Cocaine Screen Urine Not Detected (Not Detect); Fentanyl, urine Not Detected (Not Detect); Methadone Screen, Urine Not Detected (Not Detect); Opiate Screen Urine Not Detected (Not Detect); Oxycodone Screen Urine Not Detected (Not Detect); Phencyclidine Screen Urine Not Detected (Not Detect)
[2023-10-24 00:19] VITALS: BP 159/79; PULSE 110; RESP 14; TEMP 36.6; O2SAT 96
--- NOTE | 2023-10-24 01:07 | PC.NURSE ---
Took over care from Aisha Sommers, pt has left lower amputation, scab at amputation site. no drainage, no sign of ETOH withdrawal, Plan is for the pt to be discharged home
[2023-10-24 01:32] VITALS: BP 211/119; PULSE 101
[2023-10-24] MEDS: lisinopriL 10 MG TABLET PO (01:32)
[2023-10-24] MEDS: Metoprolol Tartrate 50 MG TABLET PO (01:32)
--- NOTE | 2023-10-24 01:35 | PC.NURSE ---
pt has elevated blood pressure upon discharge 211/119, Provider aware, medicated per mar. pt discharge home by EMS
[2023-10-24 01:37] VITALS: BP 211/119; PULSE 101; RESP 20; TEMP 36.9; O2SAT 98
== END 2023-10-24 01:38 | disposition home or self-care (01) ==
PROVIDERS: Physician Assistant Medical; Emergency Provider Emergency Medicine; PCP Internal Medicine
DX: S06.0X0A Concussion without loss of consciousness, initial encounter (principal); F10.129 Alcohol abuse with intoxication, unspecified; R53.83 Other fatigue; M54.2 Cervicalgia; R51.9 Headache, unspecified; I25.10 Atherosclerotic heart disease of native coronary artery without angina pectoris; Y90.6 Blood alcohol level of 120-199 mg/100 ml; X58.XXXA Exposure to other specified factors, initial encounter; W05.0XXA Fall from non-moving wheelchair, initial encounter; Y93.89 Activity, other specified; Y92.89 Other specified places as the place of occurrence of the external cause; Y99.8 Other external cause status; Z51.81 Encounter for therapeutic drug level monitoring; Z79.899 Other long term (current) drug therapy
CPT/HCPCS: 36415; 70450; 70486; 72125; 80053; 80307; 81001; 82550; 83690; 83735; 85025; 87086; 99284; 99285; S9485

== ENCOUNTER 2023-12-11 16:41 | Inpatient (IN) | payer MEDICARE, SELFPAY ==
--- NOTE | 2023-12-11 | ECG_ITS ---
Test Reason : etoh Blood Pressure : / mmHG Vent. Rate : 111 BPM Atrial Rate : 000 BPM P-R Int : 000 ms QRS Dur : 098 ms QT Int : 282 ms P-R-T Axes : 000 -32 209 degrees QTc Int : 383 ms Atrial fibrillation with rapid ventricular response Left axis deviation Low voltage QRS Cannot rule out Anteroseptal infarct (cited on or before 02-MAR-2016) Abnormal ECG When compared with ECG of 06-OCT-2023 14:03, T wave amplitude has decreased in Lateral leads Referred By: Suzy Gordon Electronically Signed By:KOREY COTO
--- NOTE | ~2023-12-11 | CT_ITS ---
EXAMINATION: CT HEAD WITHOUT CONTRAST CT CERVICAL SPINE WITHOUT CONTRAST CLINICAL INFORMATION: Fall. COMPARISON: CT head and cervical spine October 23, 2023. TECHNIQUE: Imaging was performed from the skull base to vertex without intravenous administration of contrast. In addition, helical noncontrast CT imaging was acquired through the cervical spine and source images were reviewed along with axial reconstructions and sagittal and coronal MPRs. [This CT examination was performed using dose optimization techniques as appropriate, variously including the following: *Automated exposure control *Adjustment of mA and/or kV according to patient size (this includes techniques or standardized protocols for targeted exams where dose is matched to indication/reason for exam; i.e. extremities or head) *Use of iterative reconstruction technique] DLP: 1189 mGy-cm FINDINGS: HEAD: No intracranial mass, hemorrhage, or midline shift is visualized. The ventricles and sulci are proportional. No extra-axial collections are identified. The paranasal sinuses and mastoid air cells are well aerated. CERVICAL SPINE: There is no evidence of acute cervical spine fracture. Vertebral bodies remain normal in height. Cervical vertebrae have normal alignment. There is multilevel degenerative spondylosis of the cervical spine with disc height narrowing and endplate spurs and facet joint arthrosis No pre- or paravertebral soft tissue abnormality is identified. Limited assessment of the lung apices is unremarkable. CT/CT head/brain wo IV con IMPRESSION: 1. No acute intracranial pathology. 2. No CT evidence of acute cervical spine fracture or traumatic subluxation Electronically signed by: Raza Castanon MD 12/11/2023 08:04 PM EDT
--- NOTE | ~2023-12-11 | CT_ITS ---
EXAMINATION: CT HEAD WITHOUT CONTRAST CT CERVICAL SPINE WITHOUT CONTRAST CLINICAL INFORMATION: Fall. COMPARISON: CT head and cervical spine October 23, 2023. TECHNIQUE: Imaging was performed from the skull base to vertex without intravenous administration of contrast. In addition, helical noncontrast CT imaging was acquired through the cervical spine and source images were reviewed along with axial reconstructions and sagittal and coronal MPRs. [This CT examination was performed using dose optimization techniques as appropriate, variously including the following: *Automated exposure control *Adjustment of mA and/or kV according to patient size (this includes techniques or standardized protocols for targeted exams where dose is matched to indication/reason for exam; i.e. extremities or head) *Use of iterative reconstruction technique] DLP: 1189 mGy-cm FINDINGS: HEAD: No intracranial mass, hemorrhage, or midline shift is visualized. The ventricles and sulci are proportional. No extra-axial collections are identified. The paranasal sinuses and mastoid air cells are well aerated. CERVICAL SPINE: There is no evidence of acute cervical spine fracture. Vertebral bodies remain normal in height. Cervical vertebrae have normal alignment. There is multilevel degenerative spondylosis of the cervical spine with disc height narrowing and endplate spurs and facet joint arthrosis No pre- or paravertebral soft tissue abnormality is identified. Limited assessment of the lung apices is unremarkable. CT/CT cervical spine wo IV con IMPRESSION: 1. No acute intracranial pathology. 2. No CT evidence of acute cervical spine fracture or traumatic subluxation Electronically signed by: Raza Castanon MD 12/11/2023 08:04 PM EDT
--- NOTE | ~2023-12-11 | US_ITS ---
EXAMINATION: US TRIPLEX LOWER EXTREMITY, RIGHT CLINICAL INFORMATION: Swelling, question DVT COMPARISON: Doppler ultrasound 06/27/2022 TECHNIQUE: Color-flow triplex imaging with spectral analysis and compression Doppler were performed on the right lower extremity. FINDINGS: Respiratory variation, normal compression and augmented flow are noted throughout the right lower extremity. The visualized common femoral vein, superficial femoral vein, profunda femoral vein, popliteal vein show no evidence of deep venous thrombosis. The calf veins are not visualized due to swelling. US/US venous duplex LE RT IMPRESSION: No evidence of deep venous thrombosis involving the right lower extremity, extending from the common femoral vein to the popliteal vein. The calf veins are not visualized due to swelling. If the patient's symptoms persist, followup ultrasound in 5 days 7 days might be of value to exclude proximal propagation from a non-visualized calf vein. Electronically signed by: Ole Bailey MD 12/11/2023 06:09 PM EDT
[2023-12-11 16:50] VITALS: BP 158/97; PULSE 101; RESP 18; TEMP 36.6; O2SAT 99; BMI 27.2
--- NOTE | 2023-12-11 17:18 | ED_ITS ---
HPI - General Adult General Chief complaint: ETOH/Substance Use Stated complaint: KHADARO, sec -12 Time Seen by Provider: 12/11/23 16:58 Source: patient Mode of arrival: ambulatory Limitations: no limitations History of Present Illness ED Provider: Giovanni eLster HPI narrative: 68-year-old male with past medical history of alcohol abuse presents to ED for peripheral vascular disease, diabetes, AFib, cellulitis of right leg, hypertension obstructive sleep apnea, left BKA presents to ED for alcohol intoxication, suicidal statement, possible fall, the wants his right foot evaluated. Patient admits to drinking. Patient states gone through a lot due to divorce with his that occurred in March. Patient has no plan. Patient states right foot chronic wound has been evaluated by wound clinic but not been there for long time. Patient denies any fever, chills, or recent trauma. Related Data Home Medications ?Medication ?Instructions ?Recorded ?Confirmed duloxetine 60 mg capsule,delayed 60 mg PO DAILY 12/21/19 12/12/23 release multivitamin 1 tab PO DAILY 02/27/20 12/12/23 allopurinol 100 mg tablet 200 mg PO DAILY 02/08/21 12/12/23 naltrexone 50 mg tablet 50 mg PO DAILY Alcohol Withdrawal 08/24/22 12/12/23 bupropion HCl 150 mg 24 hr tablet, 150 mg PO DAILY 06/01/23 12/12/23 extended release dulaglutide 3 mg/0.5 mL 3 mg subcut WE 06/01/23 12/12/23 subcutaneous pen injector (Trulicity) buspirone 10 mg tablet 10 mg PO BID 10/06/23 12/12/23 lisinopril 10 mg tablet 10 mg PO DAILY 12/12/23 metformin 500 mg tablet 1,000 mg PO BID 12/12/23 12/12/23 Previous Rx's ?Medication ?Instructions ?Recorded blood-glucose meter (FreeStyle #1 ea 04/23/20 Lite Meter kit) blood sugar diagnostic (FreeStyle #300 ea 02/11/21 Lite Strips) lancets 28 gauge (FreeStyle #300 ea 02/11/21 Lancets) thiamine HCl (vitamin B1) 100 mg 100 mg PO DAILY #90 tabs 07/12/22 tablet flash glucose sensor (FreeStyle #1 ea 07/14/22 Erika 14 Day Sensor kit) blood pressure test kit-medium #1 ea 08/03/22 ascorbic acid (vitamin C) 500 mg 500 mg PO DAILY #90 tabs 10/17/22 tablet (Vitamin C) folic acid 1 mg tablet 1 mg PO DAILY #90 tabs 05/17/23 dapagliflozin propanediol 10 mg 10 mg PO DAILY #90 tabs 06/15/23 tablet (Farxiga) atorvastatin 20 mg tablet 20 mg PO BEDTIME 30 days #30 tabs 08/30/23 dabigatran etexilate 150 mg 150 mg PO BID 90 days #180 caps 08/30/23 capsule (Pradaxa) digoxin 125 mcg (0.125 mg) tablet 125 mcg PO DAILY 90 days #90 caps 08/30/23 diltiazem HCl 180 mg 180 mg PO DAILY 90 days #90 caps 08/30/23 capsule,extended release 24 hr, controlled metoprolol tartrate 50 mg tablet 50 mg PO BID 90 days #180 tabs 08/30/23 commode (bedside commode) #1 ea 09/29/23 wheelchair-16 inch wide with #1 ea 09/29/23 removable footrests Allergies Allergy/AdvReac Type Severity Reaction Status Date / Time vancomycin [VANCOMYCIN] Allergy Severe ANGIOEDEMA Verified 12/11/23 16:53 Sulfa (Sulfonamide Allergy Intermediate Rash Verified 12/11/23 16:53 Antibiotics) sulfamethoxazole Allergy rash Verified 12/11/23 16:53 [From Bactrim] trimethoprim [From Bactrim] Allergy Rash Verified 12/11/23 16:53 Review of Systems 2 Review of Systems: Drinking alcohol, possible fall admits to hitting head, soft eschar statement, chronic right foot wound. Yes all other systems are reviewed and are negative [facility] Past Medical History Medical History Rosacea Annual physical exam Persistent atrial fibrillation Orthostatic hypotension Lymphoma Depression Essential hypertension Hyperlipidemia LDL goal <100 Obesity due to excess calories BMI 30.0-30.9,adult DM (diabetes mellitus) ETOH abuse BPH associated with nocturia CAD (coronary artery disease) Long-term current use of intravenous immunoglobulin (IVIG) GERD (gastroesophageal reflux disease) Hypogammaglobulinemia Diabetic eye exam Adjustment disorder PAF (paroxysmal atrial fibrillation) Gout Chronic osteomyelitis Splenic marginal zone b-cell lymphoma EMIL (obstructive sleep apnea) Surgical History Status post below-knee amputation of left lower extremity Osteomyelitis Osteomyelitis History of esophagogastroduodenoscopy (EGD) History of colonoscopy History of bunionectomy History of cardiac cath Family History Family History Father Diabetes Mother Liver cancer Maternal Grandfather CVD (cardiovascular disease) Brother Myocardial infarction Social History Social History Household Members: None Housing: House Do you presently have visiting nurse or other home services: No Alcohol intake: current Alcohol intake frequency: 3 or more drinks per day Alcohol type: hard liquor Patient Tobacco Use Status: Never used Tobacco Smoked in Last 30 Days: No e-Cigarette/Vaping Use: Never Used Second Hand Smoke Exposure: No Use of substances other than those prescribed or required for medical reasons: No Substance Use Frequency: Chronic Longstanding Currently Displaying Signs/Symptoms of Drug Intoxication Withdrawal: No Have you been hit, kicked, punched, or otherwise hurt by someone within the past year? If so, by whom?: No Do you feel safe in your current relationship?: No Current Relationship Is there a partner from a previous relationship who is making you feel unsafe now?: No Are you made to feel afraid or neglected: No Advance Directives: Yes Advance Directives on File: Yes Advance Directives Date on File: 06/02/23 Do you have a plan to hurt others: No Plan Recently lost weight without trying: Yes How much weight loss: 14-23 pounds Eating poorly because of decreased appetite: No Nutrition screen score: 4 Nutrition Risks: No Nutritional Risk Poor oral hygiene: Yes (right foot.) service: No Current occupational status: employed 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 Cognitive needs: No Hearing needs: No Vision needs: Yes Physical Exam ED Vital Signs: Vital Signs - 24 hr 12/11/23 16:50 12/11/23 18:28 12/11/23 20:19 Temperature 97.9 F 98.3 F 98.6 F Pulse Rate 101 H 108 H 106 H Respiratory Rate 18 20 20 Blood Pressure 158/97 H 166/100 H 167/89 H Pulse Oximetry 99 100 100 Oxygen Delivery Method Room Air Room Air Room Air 12/11/23 22:14 Temperature 98.5 F Pulse Rate 119 H Respiratory Rate 14 Blood Pressure 140/69 H Pulse Oximetry 95 Oxygen Delivery Method Room Air BMI result Body Mass Index 27.2 Const General: cooperative, healthy appearing, comfortable, no acute distress, well developed, alert, awake and Physically active Orientation/consciousness: patient oriented x3 [facility] Head: Yes normal to inspection, Yes No palpable skull fracture present, Yes normocephalic and Yes atraumatic Ears: hearing grossly normal bilaterally, external ears normal, TM's normal bilaterally, TM normal on the right, TM normal on the left, EAC's normal, mastoids normal and no periauricular adenopathy Eyes General: appearance normal, both eyes and all related structures Neck Neck: Yes normal visual inspection, Yes full ROM, Yes no lymphadenopathy, Yes no meningeal signs, Yes trachea midline, Yes supple, No anterior neck swelling and No tender Chest Chest palpation & inspection: normal inspection of the chest and normal palpation of entire chest wall Resp Effort & Inspection: normal respiratory effort and able to speak in complete sentences Auscultation: clear to auscultation bilaterally Cardio Jugular venous distension: no JVD Heart sounds: S1 normal heart sound present and S2 normal heart sound present GI Inspection: Yes normal to inspection Palpation (GI): Soft to palpation, not firm, nontender, no guarding and not rigid General: Yes no CVA tenderness Back/Spine/Pelvis Back: no CVA tenderness and No back tenderness Skin General skin exam: no rashes or lesions noted, elasticity normal and turgor normal Neuro General: patient oriented x3, tone normal, moves all extremities, Normal light touch and pain sensation, no meningeal signs, no focal motor deficits, CN's II- XI intact bilaterally and normal sensation to monofilament Extrem Other: Right foot positive for chronic abrasion/ulcer on dorsal aspect of foot. positive for dark dried blood/dirt/betadine. not gangrene. negative for warmth. slight erythema. negative for leg swelling. motor, neuro, and vascular of right foot intact. Leg negative for swelling, pitting edema, or calf tenderness. negative for redness. old knee abrasions Left BKA; negative for swelling or rendess. Psych Appearance: grossly normal, well kempt and not disheveled Medications Administered Generic Name Dose Route Start Last Admin Trade Name Yuridia PRN Reason Stop Dose Admin Allopurinol 200 mg 12/12/23 10:00 12/12/23 10:54 Allopurinol 100 Mg Tablet PO 200 mg DAILY MADDY Administration Ascorbic Acid 500 mg 12/12/23 10:00 12/12/23 10:54 Ascorbic Acid 500 Mg Tablet PO 500 mg DAILY MADDY Administration Bupropion HCl 150 mg 12/12/23 10:00 12/12/23 10:54 Bupropion Hcl Xl 150 Mg Tab.Er.24h PO 150 mg DAILY MADDY Administration Buspirone HCl 10 mg 12/12/23 10:00 12/12/23 10:54 Buspirone Hcl 10 Mg Tablet PO 10 mg BID MADDY Administration Digoxin 0.125 mg 12/12/23 09:00 12/12/23 09:37 Digoxin 0.125 Mg Tablet PO 0.125 mg DAILY MADDY Administration Protocol Diltiazem HCl 180 mg 12/12/23 09:55 12/12/23 10:54 Diltiazem Hcl Cd 180 Mg Cap.Er.24h PO 180 mg DAILY MADDY Administration Protocol Duloxetine HCl 60 mg 12/12/23 10:00 12/12/23 10:55 Duloxetine Hcl 60 Mg Capsule.Dr PO 60 mg DAILY MADDY Administration Empagliflozin 10 mg 12/12/23 10:15 12/12/23 10:54 Empagliflozin 10 Mg Tablet PO 10 mg DAILY MADDY Administration Folic Acid 1 mg 12/12/23 09:00 12/12/23 09:37 Folic Acid 1 Mg Tablet PO 1 mg DAILY MADDY Administration Insulin Human Lispro 0 unit 12/11/23 23:25 12/12/23 11:08 Insulin Lispro 100 Unit/Ml 3 Ml Vial SUBCUT 4 unit QIDACHS [facility] Administration Protocol Magnesium Oxide 400 mg 12/12/23 08:30 12/12/23 09:37 Magnesium Oxide 400 Mg Tablet PO 400 mg BIDPC MADDY Administration Metoprolol Tartrate 50 mg 12/11/23 23:10 12/12/23 09:37 Metoprolol Tartrate 50 Mg Tablet PO 50 mg BID MADDY Administration Protocol Multivitamins/Vitamin C 1 tab 12/12/23 09:00 12/12/23 09:37 Multivitamin Tablet PO 1 tab DAILY MADDY Administration Phenobarbital 60 mg 12/12/23 12:00 12/12/23 10:54 Phenobarbital 30 Mg Tablet PO 12/13/23 21:01 60 mg BID MADDY Administration Protocol Sodium Chloride 3 ml 12/12/23 00:00 12/12/23 08:30 0.9 % Sodium Chloride Flush 3 Ml Syringe IVFLUSH 3 ml QSHIFT MADDY Administration Thiamine HCl 100 mg 12/12/23 10:00 12/12/23 10:54 Thiamine Hcl 100 Mg Tablet PO 100 mg DAILY MADDY Administration Discontinued Medications Generic Name Dose Route Start Last Admin Trade Name Yuridia PRN Reason Stop Dose Admin Dabigatran 150 mg 12/11/23 23:08 12/12/23 03:39 Dabigatran Etexilate Mesylate 150 Mg Capsule PO 12/11/23 23:09 Not Given ONCE STA Digoxin 0.25 mg 12/11/23 23:23 12/12/23 00:19 Digoxin 0.5 Mg/2 Ml Ampul IVPUSH 12/11/23 23:24 0.25 mg ONCE STA Administration Protocol Folic Acid 1 mg 12/12/23 10:00 12/12/23 10:58 Folic Acid 1 Mg Tablet PO Not Given DAILY [facility] Sodium Chloride 1,000 mls @ 999 mls/hr 12/11/23 17:08 12/11/23 18:35 Ns IV 12/11/23 18:08 Infused .Q1H1M STA Infusion Dextrose 1,000 mls @ 100 mls/hr 12/11/23 20:28 12/12/23 06:53 D5w IVCONT 12/12/23 06:27 Infused .Q10H STA Infusion Thiamine HCl 100 mg/ Sodium 101 mls @ 202 mls/hr 12/11/23 23:03 12/12/23 01:15 Chloride IV 12/11/23 23:32 Infused ONCE STA Infusion Magnesium Sulfate 2 gm in 50 mls @ 25 mls/hr 12/11/23 23:20 12/12/23 03:00 Magnesium Sulfate/H2o IV 12/12/23 01:19 Infused ONCE ONE Infusion Magnesium Sulfate 2 gm in 50 mls @ 25 mls/hr 12/12/23 07:28 12/12/23 11:00 Magnesium Sulfate/H2o IV 12/12/23 09:27 Infused ONCE ONE Infusion Influenza Virus Vaccine 0.5 ml 12/12/23 02:52 12/12/23 10:53 Flu Vacc [id number](6mos Up)/Pf 0.5 Ml Syringe IM 12/12/23 02:53 Not Given .ONCE ONE Labetalol HCl 10 mg 12/12/23 03:54 12/12/23 04:34 Labetalol Hcl 100 Mg/20 Ml Vial IVPUSH 10 mg Q4H PRN Administration SBP > 160 Multivitamins/Vitamin C 1 tab 12/12/23 10:00 12/12/23 10:58 Multivitamin Tablet PO Not Given DAILY MADDY Phenobarbital Sodium 328 mg 12/12/23 00:15 12/12/23 01:22 Phenobarbital Sodium 130 Mg/Ml Vial IM 12/12/23 00:16 328 mg ONCE ONE Administration Protocol Phenobarbital Sodium 246 mg 12/12/23 03:15 12/12/23 03:44 Phenobarbital Sodium 130 Mg/Ml Vial IM 12/12/23 03:16 246 mg ONCE ONE Administration Protocol Phenobarbital Sodium 246 mg 12/12/23 06:15 12/12/23 06:42 Phenobarbital Sodium 130 Mg/Ml Vial IM 12/12/23 06:16 246 mg ONCE ONE Administration Protocol Medical Decision Making Medical Decision Making MDM Narrative: 68-year-old male history of alcohol abuse presents to ED for drinking alcohol, suicidal ideation. Negative for obvious signs of trauma. Right foot shows chronic abrasion also dorsal aspect of right foot. Not much warmth or erythema. Patient refused x-ray of foot states his foot is fine and chronic. Patient denies any leg pain. Patient denies any leg swelling or calf pain. Do patient states due to him stating chronic wound and having been to Wound Clinic for a while will do x-ray to rule out osteo although there is no obvious signs of infection on physical inspection. Patient refused x-ray. No need for ultrasound of leg. It was canceled. Placed by accident. Labs head CT cervical spine CT ordered. Foot does not look infected. 7:18pm: Patient received bag of fluids before sodium results came back. Patient seems to have chronic hypernatremia. Patient was also hypernatremic on 10/22 8:00pm; discussed hypernatremia treatment with Dr. Levine who recommends using D5 water to correct hypernatremia. Use M decal to calculate rate of D5W. Patient to be admitted for hypernatremia. Hospitalist Dr. Montanez accepted case Differential Diagnosis Differential Diagnoses: The differential diagnosis associated with the presentation includes (Brain bleed, skull fracture, neck fracture, alcohol intox, ) Admission/Observation Consideration of admission/observation: Escalation of care including admission/observation considered Consult Healthcare Provider Management of the patient was discussed with: Hospitalist (Dr. Montanez) Lab Data MDM Lab Attestation statement: I reviewed the patient's lab results. 12/12/23 06:29 12/12/23 06:29 Labs: Lab Results 12/11/23 12/11/23 12/11/23 Range/Units 17:14 17:23 18:36 WBC 5.9 (4.8-10.8) X10*3/uL RBC 4.04 L (4.60-5.80) X10*6/uL Hgb 13.7 L (14.0-18.0) g/dl Hct 39.7 L (42.0-52.0) % MCV 98.3 H (80.0-98.0) fL MCH 33.9 H (27.0-33.0) pg MCHC 34.5 (31.0-36.0) g/dl RDW 18.3 H (11.0-16.0) % Plt Count 280 D (160-400) X10*3/uL MPV 9.5 (9.4-12.4) fL Immature Gran % (Auto) 0.3 (0.0-0.4) % Neut % (Auto) 38.4 L (45-73) % Lymph % (Auto) 36.0 (20-40) % [place] % (Auto) 20.7 H (2-11) % Eos % (Auto) 2.9 (0-4) % Baso % (Auto) 1.7 (0-2) % Lymph # (Auto) 2.1 (1.2-4.9) X10*3/uL [place] # (Auto) 1.2 (0.1-1.2) X10*3/uL Eos # (Auto) 0.2 (0.0-0.4) X10*3/uL Baso # (Auto) 0.1 (0.0-0.2) X10*3/uL Abs Immat Gran (auto) 0.02 (0.00-0.03) X10*3/uL Absolute Neuts (auto) 2.3 (2.0-8.3) x10*3/uL Absolute Nucleated RBC 0.000 (0.0-0.012) X10*3/uL Nucleated RBC % (auto) 0.0 (0.0-0.2) /100WBC Smear Tech's Comments VERIFIED ESR 5 (0-15) MM/HR Sodium 151 H (135-145) mmol/L Potassium 3.6 (3.3-5.1) mmol/L Chloride 107 (96-108) mmol/L Carbon Dioxide 31 H (22-29) mmol/L Anion Gap 17 (12-20) BUN 9 (9-16) mg/dL Creatinine 0.85 (0.5-1.4) mg/dL Estim Creat Clear Calc 99.3 Estimated GFR > 60 POC Glucose 131 H (60-115) mg/dL Random Glucose 120 H (60-115) mg/dL Calcium 9.4 (8.4-10.2) mg/dL Magnesium 1.6 (1.6-2.6) mg/dL Total Bilirubin 0.4 (0.0-1.0) mg/dL AST 46 H (5-37) U/L ALT 27 (0-40) U/L Alkaline Phosphatase 177 H (39-117) U/L C-Reactive Protein 0.25 (< or = 0.50) mg/dL Total Protein 6.7 (6.5-8.0) g/dL Albumin 4.1 (3.5-5.0) g/dL Urine Color Yellow Urine Appearance Clear Urine pH 6.5 (5.0-9.0) Ur Specific [place] 1.010 (1.005-1.025) Urine Protein Negative (Neg-Trace) mg/dL Urine Glucose (UA) 100 H (Negative) mg/dL Urine Ketones Negative (Negative) mg/dL Urine Blood Negative (Negative) Urine Nitrite Negative (Negative) Ur Leukocyte Esterase Negative (Negative) Urine Opiates Screen Not Detected (Not Detect) Ur Buprenorphine Scrn Not Detected (Not Detect) ng/mL Ur Oxycodone Screen Not Detected (Not Detect) ng/mL Urine Methadone Screen Not Detected (Not Detect) ng/mL Urine Fentanyl Screen Not Detected (Not Detect) Ur Barbiturates Screen Not Detected (Not Detect) Ur Phencyclidine Scrn Not Detected (Not Detect) Ur Amphetamines Screen Not Detected (Not Detect) U Benzodiazepines Scrn Not Detected (Not Detect) Urine Cocaine Screen Not Detected (Not Detect) U Marijuana (THC) Screen Not Detected (Not Detect) Ethyl Alcohol 317 H* mg/dL Independent Interpretation I performed an independent interpretation of an: CT Scan Radiology Impression Discussion of test interpretation with radiology: I have reviewed the radiologist's reading. Independent Historian Clinical information obtained from an independent historian. History obtained from or confirmed by: Other (patient) External Record Review External record reviewed: Other (prior visits) Critical Care Time Critical Care Time Critical Care Time: Yes Total Critical Care Time: 60 Attestation: hypernatremia. D5 ordered Discharge Plan Discharge Clinical Impression: Suicidal ideation, Acute hypernatremia Patient Disposition: Admitted As Inpatient Interventions: Admission Worksheet (ED) Last Done: 12/12/23 01:33 Discharge Date/Time: 12/12/23 02:00
[2023-12-11 17:27] LABS: Glucose, Whole Blood 131 mg/dL (60-115)
[2023-12-11] MEDS: 0.9 % Sodium Chloride 1,000 ML 999 ML IV (17:31)
[2023-12-11 17:39] LABS: Basophils Absolute Auto 0.1 X10*3/uL (0.0-0.2); Basophils Percent Auto 1.7 % (0-2); Eosinophils Absolute Auto 0.2 X10*3/uL (0.0-0.4); Eosinophils Percent Auto 2.9 % (0-4); Hematocrit 39.7 % (42.0-52.0); Hemoglobin 13.7 g/dl (14.0-18.0); Imm Gran Abs Auto 0.02 X10*3/uL (0.00-0.03); Imm Gran Pct Auto 0.3 % (0.0-0.4); Lymphocytes Absolute Auto 2.1 X10*3/uL (1.2-4.9); MANUAL DIFF FLAG SCAN; Mean Corpuscular HGB Conc 34.5 g/dl (31.0-36.0); Mean Corpuscular Hemoglobin 33.9 pg (27.0-33.0); Mean Corpuscular Volume 98.3 fL (80.0-98.0); Mean Platelet Volume 9.5 fL (9.4-12.4); Monocytes Absolute Auto 1.2 X10*3/uL (0.1-1.2); Monocytes Percent Auto 20.7 % (2-11); Neutrophils Absolute Auto 2.3 x10*3/uL (2.0-8.3); Neutrophils Percent Auto 38.4 % (45-73); Platelet Count 280 X10*3/uL (160-400); Red Blood Count 4.04 X10*6/uL (4.60-5.80); Red Cell Distribution Width 18.3 % (11.0-16.0); SCAN SMEAR FLAG 1; White Blood Count 5.9 X10*3/uL (4.8-10.8)
[2023-12-11 17:53] LABS: Alanine Aminotransferase 27 U/L (0-40); Albumin Level 4.1 g/dL (3.5-5.0); Alkaline Phosphatase 177 U/L (39-117); Anion Gap 17 (12-20); Aspartate Amino Transferase 46 U/L (5-37); Bilirubin Total 0.4 mg/dL (0.0-1.0); Blood Urea Nitrogen 9 mg/dL (9-16); C Reactive Protein 0.25 mg/dL (< or = 0.50); Calcium 9.4 mg/dL (8.4-10.2); Carbon Dioxide 31 mmol/L (22-29); Chloride 107 mmol/L (96-108); Creatinine Clr Calc Pharmacy 99.3; Estimated Glomerular Filt Rate > 60; Ethanol 317 mg/dL; Glucose Random 120 mg/dL (60-115); Magnesium 1.6 mg/dL (1.6-2.6); Potassium 3.6 mmol/L (3.3-5.1); Sodium 151 mmol/L (135-145); Total Protein 6.7 g/dL (6.5-8.0)
[2023-12-11 18:07] LABS: SLIDE REVIEW VERIFIED
--- NOTE | 2023-12-11 18:25 | PC.NURSE ---
Belonglings locked in C1, patient changed into hospital attire
[2023-12-11 18:28] VITALS: BP 166/100; PULSE 108; RESP 20; TEMP 36.8; O2SAT 100
--- NOTE | 2023-12-11 18:29 | PC.NURSE ---
ex moni called with patients permission , moni aware that patient is in the ER and patient would like for her to feed his cat.Moni stating patient is severely depressed and needs help. States patient drinks heavily and is unable to safely care for himself . That he has let his insurance lapse. This customs entry writer noticed fluid filled blisters on patients fingers- when asked patient stating burned his fingers trying to cook pizza in the oven
[2023-12-11 18:31] LABS: Erythrocyte Sedimentation Rate 5 MM/HR (0-15)
[2023-12-11 18:44] LABS: Appearance Urine Clear; Color Urine Yellow; Glucose Urine UA 100 mg/dL (Negative); Leukocyte Esterase Urine Negative (Negative); Nitrite Urine Negative (Negative); PH 6.5 (5.0-9.0); Urine Blood Negative (Negative); Urine Ketones Negative (Negative); Urine Protein Negative (Neg-Trace)
[2023-12-11 18:59] LABS: Amphetamine Screen Urine Not Detected (Not Detect); Barbiturates, Urine Not Detected (Not Detect); Benzodiazepines Screen Urine Not Detected (Not Detect); Buprenorphine Scr Not Detected (Not Detect); Cannabinoid Screen Urine Not Detected (Not Detect); Cocaine Screen Urine Not Detected (Not Detect); Fentanyl, urine Not Detected (Not Detect); Methadone Screen, Urine Not Detected (Not Detect); Opiate Screen Urine Not Detected (Not Detect); Oxycodone Screen Urine Not Detected (Not Detect); Phencyclidine Screen Urine Not Detected (Not Detect)
[2023-12-11 20:19] VITALS: BP 167/89; PULSE 106; RESP 20; TEMP 37; O2SAT 100
[2023-12-11] MEDS: Dextrose 5 % 1,000 ML 100 ML IVCONT (20:47)
[2023-12-11 22:14] VITALS: BP 140/69; PULSE 119; RESP 14; TEMP 36.9; O2SAT 95
--- NOTE | 2023-12-11 23:13 | PM.IMHP ---
History of Present Illness Date of Service: 12/11/23 Attending physician on admission: Suzy Gorodn Chief Complaint: Suicide ideation Ashley Francis is a very pleasant 68 years old man with past medical history significant for alcohol abuse, essential hypertension and atrial fibrillation was brought to emergency department via EMS due to suicidal ideation. Patient stated that he feels very depressed as he is going through divorce and financial issues. He does not have a plan. He denied any symptoms such as headache, palpitations, dizziness, shortness on breath, chest pain, abdominal pain, nausea, vomiting or diarrhea. Denies fever or chills. He drinks vodka -as time he drank was before coming to the hospital. Denied illicit drug use. He does have chronic wounds to his right feet for which he gets care at wound clinic. He has not been taking any of his home medications. In the ED he was found to have tachycardia. Blood workup was remarkable for hyponatremia of 151. There are no other significant electrolyte imbalances. CO2 is elevated. Renal function is normal. AST is 46, ALT 27, total bilirubin 0.4 and alk-phos 177. CRP, albumin and total protein are normal. Glucose 120. There is no leukocytosis. Hemoglobin is 13.7 and platelets 280. UA showed no evidence of urinary tract infection. Head CT and C-spine scan showed no acute pathology. Right lower extremity ultrasound showed no DVT. ED tx: NS 1 L bolus. Review of Systems Review of Systems: All 12 systems were reviewed and normal except as noted in HPI. [facility] Medical History Rosacea Annual physical exam Persistent atrial fibrillation Orthostatic hypotension Lymphoma Depression Essential hypertension Hyperlipidemia LDL goal <100 Obesity due to excess calories BMI 30.0-30.9,adult DM (diabetes mellitus) ETOH abuse BPH associated with nocturia CAD (coronary artery disease) Long-term current use of intravenous immunoglobulin (IVIG) GERD (gastroesophageal reflux disease) Hypogammaglobulinemia Diabetic eye exam Adjustment disorder PAF (paroxysmal atrial fibrillation) Gout Chronic osteomyelitis Splenic marginal zone b-cell lymphoma EMIL (obstructive sleep apnea) Family History Father Diabetes Mother Liver cancer Maternal Grandfather CVD (cardiovascular disease) Brother Myocardial infarction Surgical History Status post below-knee amputation of left lower extremity Osteomyelitis Osteomyelitis History of esophagogastroduodenoscopy (EGD) History of colonoscopy History of bunionectomy History of cardiac cath Social History Household Members: None Housing: House Do you presently have visiting nurse or other home services: Yes Alcohol intake: current Alcohol intake frequency: 3 or more drinks per day Alcohol type: hard liquor Patient Tobacco Use Status: Never used Tobacco Smoked in Last 30 Days: No e-Cigarette/Vaping Use: Never Used Second Hand Smoke Exposure: No Use of substances other than those prescribed or required for medical reasons: No Advance Directives: Yes Advance Directives on File: Yes Advance Directives Date on File: 06/02/23 Do you have a plan to hurt others: No Plan service: No Current occupational status: employed 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 Cognitive needs: No Hearing needs: No Vision needs: Yes Meds Allergies Allergy/AdvReac Type Severity Reaction Status Date / Time vancomycin [VANCOMYCIN] Allergy Severe ANGIOEDEMA Verified 12/11/23 16:53 Sulfa (Sulfonamide Allergy Intermediate Rash Verified 12/11/23 16:53 Antibiotics) sulfamethoxazole Allergy rash Verified 12/11/23 16:53 [From Bactrim] trimethoprim [From Bactrim] Allergy Rash Verified 12/11/23 16:53 Active Medications: Current Medications Dabigatran (Dabigatran Etexilate Mesylate 150 Mg Capsule) 150 mg PO ONCE STA Stop: 12/11/23 23:09 Folic Acid (Folic Acid 1 Mg Tablet) 1 mg PO DAILY [facility] Dextrose (D5w) 1,000 mls @ 100 mls/hr IVCONT .Q10H STA Stop: 12/12/23 06:27 Last Admin: 12/11/23 20:47 Dose: 100 mls/hr Thiamine HCl 100 mg/ Sodium (Chloride) 101 mls @ 202 mls/hr IV ONCE STA Stop: 12/11/23 23:32 Melatonin (Melatonin 3 Mg Tablet) 6 mg PO BEDTIME PRN PRN Reason: Insomnia Metoprolol Tartrate (Metoprolol Tartrate 50 Mg Tablet) 50 mg PO BID MADDY; Protocol Multivitamins/Vitamin C (Multivitamin Tablet) 1 tab PO DAILY [facility] Pharmacy Consult (Consult Rx Etoh Phenob Im/Po) 1 each MISCELLANE ONCE PRN; Protocol PRN Reason: Consult order Sodium Chloride (0.9 % Sodium Chloride Flush 3 Ml Syringe) 3 ml IVFLUSH QSHIFT [facility] Home Medications ?Medication ?Instructions ?Recorded ?Confirmed ?Last Taken ?Type duloxetine 60 mg capsule,delayed 60 mg PO DAILY 12/21/19 10/06/23 10/06/23 History release multivitamin 1 tab PO DAILY 02/27/20 10/06/23 10/06/23 History allopurinol 100 mg tablet 200 mg PO DAILY 02/08/21 10/06/23 10/06/23 History naltrexone 50 mg tablet 50 mg PO DAILY Alcohol Withdrawal 08/24/22 10/06/23 10/06/23 History bupropion HCl 150 mg 24 hr tablet, 150 mg PO DAILY 06/01/23 10/06/23 10/06/23 History extended release dulaglutide 3 mg/0.5 mL 3 mg subcut WE 06/01/23 10/06/23 09/20/23 History subcutaneous pen injector (Trulicity) hydroxyzine HCl 25 mg tablet 25 mg PO TID PRN Anxiety 06/01/23 10/06/23 Unknown History buspirone 10 mg tablet 10 mg PO BID 10/06/23 10/06/23 Unknown History ciclopirox 0.77 % topical cream 1 appl topical BID 10/06/23 10/06/23 10/06/23 History Physical Exam Vital Signs and Narrative: Vital Signs: Last Vital Signs Temp 98.5 F 12/11/23 22:14 Pulse 119 H 12/11/23 22:14 Resp 14 12/11/23 22:14 BP 140/69 H 12/11/23 22:14 Pulse Ox 95 12/11/23 22:14 O2 Del Method Room Air 12/11/23 22:14 BMI result Body Mass Index 27.2 Constitutional - Awake and Alert, No apparent distress. Tearful. Pleasant. Cooperative. HEENT - PERRL, EOMI. Normal sclerae. Dry oral mucosa. Heart - tachycardia, regular rhythm. No murmur. Lungs - Normal lung expansion, Normal respiratory effort, No respiratory distress, CTA bilaterally Abdomen - NT / ND; +BS; No rebound or guarding - No CVA tenderness Extremities - left BKA. Right foot: Chronic changes. Musculoskeletal - Normal inspection, normal ROM Skin - Warm/Dry Neurological - Alert & oriented x3. Normal speech. Normal behavior. Tremulous. Psychological - Depressed affect Results Labs 12/11/23 17:23 12/11/23 17:23 Labs: Laboratory Results - last 24 hr 12/11/23 12/11/23 12/11/23 17:14 17:23 18:36 MCV 98.3 H MCH 33.9 H MCHC 34.5 RDW 18.3 H Plt Count 280 D MPV 9.5 Immature Gran % (Auto) 0.3 Neut % (Auto) 38.4 L Lymph % (Auto) 36.0 [place] % (Auto) 20.7 H Eos % (Auto) 2.9 Baso % (Auto) 1.7 Lymph # (Auto) 2.1 [place] # (Auto) 1.2 Eos # (Auto) 0.2 Baso # (Auto) 0.1 Abs Immat Gran (auto) 0.02 Absolute Neuts (auto) 2.3 Absolute Nucleated RBC 0.000 Nucleated RBC % (auto) 0.0 Smear Tech's Comments VERIFIED ESR 5 Anion Gap 17 Estim Creat Clear Calc 99.3 Estimated GFR > 60 POC Glucose 131 H Random Glucose 120 H Calcium 9.4 Magnesium 1.6 Total Bilirubin 0.4 AST 46 H ALT 27 Alkaline Phosphatase 177 H C-Reactive Protein 0.25 Total Protein 6.7 Albumin 4.1 Urine Color Yellow Urine Appearance Clear Urine pH 6.5 Ur Specific [place] 1.010 Urine Protein Negative Urine Glucose (UA) 100 H Urine Ketones Negative Urine Blood Negative Urine Nitrite Negative Ur Leukocyte Esterase Negative Urine Opiates Screen Not Detected Ur Buprenorphine Scrn Not Detected Ur Oxycodone Screen Not Detected Urine Methadone Screen Not Detected Urine Fentanyl Screen Not Detected Ur Barbiturates Screen Not Detected Ur Phencyclidine Scrn Not Detected Ur Amphetamines Screen Not Detected U Benzodiazepines Scrn Not Detected Urine Cocaine Screen Not Detected U Marijuana (THC) Screen Not Detected Ethyl Alcohol 317 H* Imaging Radiologist's Impressions: Impressions Cervical Spine CT 12/11/23 17:08 IMPRESSION: 1. No acute intracranial pathology. 2. No CT evidence of acute cervical spine fracture or traumatic subluxation Electronically signed by: Raza Castanon MD 12/11/2023 08:04 PM EDT RP Venous Duplex 12/11/23 17:41 IMPRESSION: No evidence of deep venous thrombosis involving the right lower extremity, extending from the common femoral vein to the popliteal vein. The calf veins are not visualized due to swelling. If the patient's symptoms persist, followup ultrasound in 5 days 7 days might be of value to exclude proximal propagation from a non-visualized calf vein. Electronically signed by: Ole Bailey MD 12/11/2023 06:09 PM EDT RP Head CT 12/11/23 18:02 IMPRESSION: 1. No acute intracranial pathology. 2. No CT evidence of acute cervical spine fracture or traumatic subluxation Electronically signed by: Raza Castanon MD 12/11/2023 08:04 PM EDT RP Assessment and Plan (1) Alcohol withdrawal: Qualifiers: Complication of substance-induced condition: uncomplicated Qualified Code(s): F10.930 - Alcohol use, unspecified with withdrawal, uncomplicated Status: Resolved (2) Depression: Qualifiers: Depression Type: unspecified Qualified Code(s): F32.A - Depression, unspecified Status: Inactive (3) Suicide ideation: Status: Acute Plan Ashley Francis is a 68 y/o man admitted with: Alcohol withdrawal. Admit to hospitalist service. CIWA over 4 hours. Phenobarbital protocol. Thiamine 10 mg IV daily, folic acid, magnesium and multivitamins. Hypernatremia, likely due to poor water intake. Continue IVFs: D5. Continue to monitor sodium level. Suicide ideation/depression. Psychiatric consult. Sitter. Atrial fibrillation, rapid. Check ECG now. Continue metoprolol, digoxin and Pradaxa. Hyperlipidemia. Continue statin. Essential hypertension. Continue lisinopril. Diabetes mellitus. Insulin sliding scale. Diabetic diet. Check A1c. Left BKA. Right foot, chronic wound. CRP is normal. Wound consult. History of left shoulder fracture. DVT prophylaxis: On Pradaxa Code status: Full Patient will need hospitalization for at least 2 midnights for alcohol withdrawal treatment with phenobarbital and evaluation by psychiatric due to ongoing suicidal ideation. Quality Stroke Does the patient have a stroke diagnosis?: No VTE Prior VTE?: No VTE Risk Level:: Medical - moderate - high VTE Device Contraindication: Treatment Not Indicated VTE Drug Contraindication: N/A - Med Ordered
[2023-12-11 23:55] VITALS: BP 159/88; PULSE 100; RESP 15; TEMP 36.9; O2SAT 97
[2023-12-11 23:57] VITALS: BP 159/88; PULSE 108
[2023-12-11] MEDS: Metoprolol Tartrate 50 MG TABLET PO (23:57)
--- NOTE | 2023-12-12 | MHC.EDTECH ---
This pct assumed care of Patient at 2300 ,vitals taken ,Patient belongings list done ,Patient belonging are locked up in [facility] closet locker #c1 ,1 :1 Sitter at bedside .
[2023-12-12] MEDS: Thiamine HCL 100 MG in 0.9 % Sodium Chloride 100 ML 202 MG IV (00:09)
[2023-12-12] MEDS: Digoxin 0.5 MG/2 ML AMPUL 0.25 MG IVPUSH (00:19)
--- NOTE | 2023-12-12 00:46 | MHC.EDTECH ---
Patient blood sugar check ,RN Cassi aware of result of 154.
[2023-12-12 00:50] LABS: Glucose, Whole Blood 154 mg/dL (60-115)
[2023-12-12] MEDS: Magnesium Sulfate/H2O 2 GM/50 ML PIGGYBACK IV ×2 (01:00→08:30)
[2023-12-12] MEDS: 0.9 % Sodium Chloride Flush 3 ML SYRINGE IVFLUSH ×4 (01:14→20:51)
--- NOTE | 2023-12-12 01:19 | MHC.EDTECH ---
Patient kashif blount for alicja anguiano ,was given .
[2023-12-12] MEDS: Insulin Lispro 100 UNIT/ML 3 ML VIAL SUBCUT ×2 (01:20→11:08)
[2023-12-12] MEDS: PHENobarbitaL sodium 130 MG/ML VIAL 328 MG IM (01:22)
[2023-12-12 02:21] VITALS: BP 190/100; PULSE 109; RESP 20; TEMP 36.5; O2SAT 94
[2023-12-12] MEDS: PHENobarbitaL sodium 130 MG/ML VIAL 246 MG IM ×2 (03:44→06:42)
[2023-12-12 04:34] VITALS: BP 162/93; PULSE 100
[2023-12-12] MEDS: Labetalol HCL 100 MG/20 ML VIAL 10 MG IVPUSH (04:34)
[2023-12-12 07:00] LABS: Hematocrit 38.4 % (42.0-52.0); Hemoglobin 13.4 g/dl (14.0-18.0); Mean Corpuscular HGB Conc 34.9 g/dl (31.0-36.0); Mean Corpuscular Hemoglobin 33.6 pg (27.0-33.0); Mean Corpuscular Volume 96.2 fL (80.0-98.0); Mean Platelet Volume 10.1 fL (9.4-12.4); Platelet Count 287 X10*3/uL (160-400); Red Blood Count 3.99 X10*6/uL (4.60-5.80); Red Cell Distribution Width 17.6 % (11.0-16.0)
[2023-12-12 07:18] LABS: Estimated Average Glucose 103 mg/dL; Hemoglobin A1c % 5.2 % (<6.0)
[2023-12-12 07:21] LABS: Alanine Aminotransferase 31 U/L (0-40); Albumin Level 4.1 g/dL (3.5-5.0); Alkaline Phosphatase 187 U/L (39-117); Anion Gap 15 (12-20); Aspartate Amino Transferase 55 U/L (5-37); Bilirubin Total 0.8 mg/dL (0.0-1.0); Blood Urea Nitrogen 9 mg/dL (9-16); Calcium 9.1 mg/dL (8.4-10.2); Carbon Dioxide 32 mmol/L (22-29); Chloride 100 mmol/L (96-108); Creatinine Clr Calc Pharmacy 108.3; Estimated Glomerular Filt Rate > 60; Glucose Random 104 mg/dL (60-115); Potassium 3.4 mmol/L (3.3-5.1); Sodium 144 mmol/L (135-145); Total Protein 6.4 g/dL (6.5-8.0)
[2023-12-12 07:26] LABS: Magnesium 1.4 mg/dL (1.6-2.6)
[2023-12-12 07:27] VITALS: BP 151/94; PULSE 78; RESP 18; TEMP 36.6; O2SAT 100
[2023-12-12 07:45] LABS: Glucose, Whole Blood 103 mg/dL (60-115)
[2023-12-12] MEDS: Folic Acid 1 MG TABLET PO (09:37)
[2023-12-12] MEDS: Magnesium Oxide 400 MG TABLET PO ×2 (09:37→16:14)
[2023-12-12] MEDS: Digoxin 0.125 MG TABLET PO (09:37)
[2023-12-12] MEDS: Multivitamin TABLET 1 TAB PO (09:37)
[2023-12-12] MEDS: Metoprolol Tartrate 50 MG TABLET PO ×2 (09:37→20:50)
--- NOTE | 2023-12-12 09:37 | PHA.MEDREC ---
Pharmacy Consult ? Medication Reconciliation Pharmacy has completed the medication reconciliation, spoke to patient at bedside, patient confirmed all meds and doses. Stated that he finished cefuroxime, had ciclopirox but has never used it, does not use hydroxyzine anymore because it gave him hillucinations, pt also stated he does not take lisinopril, and zinc was not covered by the insurance so that was left off as well. Pt stated that he last took his medications some time last week.
--- NOTE | 2023-12-12 09:56 | P.PNIM_ITS ---
Subjective Subjective Date of Service: 12/12/23 Interval History: withdrawal improving Physical Exam 2 Vital Signs: Vital Signs: Last Vital Signs Temp 97.9 F 12/12/23 07:27 Pulse 78 12/12/23 07:27 Resp 18 12/12/23 07:27 BP 151/94 H 12/12/23 07:27 Pulse Ox 100 12/12/23 07:27 O2 Del Method Room Air 12/12/23 07:27 BMI result Body Mass Index 27.2 General: AO X 3, no acute distress Resp: CTA bilateral, no accessory muscles used CVS: S1,S2,RRR GI: soft, non tender, non distended Neuro: motor grossly intact, alert, anxious left bka Objective Data Active Medications Allopurinol (Allopurinol 100 Mg Tablet) 200 mg PO DAILY [facility] Ascorbic Acid (Ascorbic Acid 500 Mg Tablet) 500 mg PO DAILY [facility] Atorvastatin Calcium (Atorvastatin Calcium 20 Mg Tablet) 20 mg PO BEDTIME MADDY Bupropion HCl (Bupropion Hcl Xl 150 Mg Tab.Er.24h) 150 mg PO DAILY [facility] Buspirone HCl (Buspirone Hcl 10 Mg Tablet) 10 mg PO BID MADDY Dabigatran (Dabigatran Etexilate Mesylate 150 Mg Capsule) 150 mg PO BID [facility] Digoxin (Digoxin 0.125 Mg Tablet) 0.125 mg PO DAILY [facility]; Protocol Last Admin: 12/12/23 09:37 Dose: 0.125 mg Documented By: DELFIN Folic Acid (Folic Acid 1 Mg Tablet) 1 mg PO DAILY [facility] Last Admin: 12/12/23 09:37 Dose: 1 mg Documented By: DELFIN Glucose (Glucose Gel 15 Gm Gel..Gram.) 15 gm PO Q15M PRN; Protocol PRN Reason: per Hypoglycemia Standing Ord. Dextrose (D10) 250 mls @ 750 mls/hr IV Q15M PRN; Protocol PRN Reason: per Hypoglycemia Standing Ord. Insulin Human Lispro (Insulin Lispro 100 Unit/Ml 3 Ml Vial) 0 unit SUBCUT QIDACHS [facility]; Protocol Last Admin: 12/12/23 07:50 Dose: Not Given Documented By: DELFIN Non-Admin Reason: No Insulin Coverage Labetalol HCl (Labetalol Hcl 100 Mg/20 Ml Vial) 10 mg IVPUSH Q4H PRN PRN Reason: SBP > 160 Last Admin: 12/12/23 04:34 Dose: 10 mg Documented By: NEETA Magnesium Oxide (Magnesium Oxide 400 Mg Tablet) 400 mg PO BIDPC [facility] Last Admin: 12/12/23 09:37 Dose: 400 mg Documented By: DELFIN Melatonin (Melatonin 3 Mg Tablet) 6 mg PO BEDTIME PRN PRN Reason: Insomnia Metoprolol Tartrate (Metoprolol Tartrate 50 Mg Tablet) 50 mg PO BID [facility]; Protocol Last Admin: 12/12/23 09:37 Dose: 50 mg Documented By: DELFIN Multivitamins/Vitamin C (Multivitamin Tablet) 1 tab PO DAILY [facility] Last Admin: 12/12/23 09:37 Dose: 1 tab Documented By: DELFIN Non-Formulary Medication (Dapagliflozin Propanediol [Farxiga]) 10 mg PO DAILY [facility] Pharmacy Consult (Consult Rx Etoh Phenob Im/Po) 1 each MISCELLANE ONCE PRN; Protocol PRN Reason: Consult order Phenobarbital (Phenobarbital 30 Mg Tablet) 60 mg PO BID [facility]; Protocol Stop: 12/13/23 21:01 Phenobarbital (Phenobarbital 30 Mg Tablet) 30 mg PO BID [facility]; Protocol Stop: 12/15/23 21:01 Phenobarbital (Phenobarbital 30 Mg Tablet) 30 mg PO DAILY [facility]; Protocol Stop: 12/17/23 09:01 Sodium Chloride (0.9 % Sodium Chloride Flush 3 Ml Syringe) [facility] Last Admin: 12/12/23 08:30 Dose: 3 ml Documented By: DELFIN Labs 12/12/23 06:29 12/12/23 06:29 Labs: Laboratory Results - last 24 hr 12/11/23 12/11/23 12/11/23 17:14 17:23 18:36 MCV 98.3 H MCH 33.9 H MCHC 34.5 RDW 18.3 H Plt Count 280 D MPV 9.5 Immature Gran % (Auto) 0.3 Neut % (Auto) 38.4 L Lymph % (Auto) 36.0 Kerr % (Auto) 20.7 H Eos % (Auto) 2.9 Baso % (Auto) 1.7 Lymph # (Auto) 2.1 Kerr # (Auto) 1.2 Eos # (Auto) 0.2 Baso # (Auto) 0.1 Abs Immat Gran (auto) 0.02 Absolute Neuts (auto) 2.3 Absolute Nucleated RBC 0.000 Nucleated RBC % (auto) 0.0 Smear Tech's Comments VERIFIED ESR 5 Anion Gap 17 Estim Creat Clear Calc 99.3 Estimated GFR > 60 POC Glucose 131 H Random Glucose 120 H Estimat Average Glucose Hemoglobin A1c % Calcium 9.4 Magnesium 1.6 Total Bilirubin 0.4 AST 46 H ALT 27 Alkaline Phosphatase 177 H C-Reactive Protein 0.25 Total Protein 6.7 Albumin 4.1 Urine Color Yellow Urine Appearance Clear Urine pH 6.5 Ur Specific [place] 1.010 Urine Protein Negative Urine Glucose (UA) 100 H Urine Ketones Negative Urine Blood Negative Urine Nitrite Negative Ur Leukocyte Esterase Negative Urine Opiates Screen Not Detected Ur Buprenorphine Scrn Not Detected Ur Oxycodone Screen Not Detected Urine Methadone Screen Not Detected Urine Fentanyl Screen Not Detected Ur Barbiturates Screen Not Detected Ur Phencyclidine Scrn Not Detected Ur Amphetamines Screen Not Detected U Benzodiazepines Scrn Not Detected Urine Cocaine Screen Not Detected U Marijuana (THC) Screen Not Detected Ethyl Alcohol 317 H* 12/12/23 12/12/23 12/12/23 00:45 06:29 07:38 MCV 96.2 MCH 33.6 H MCHC 34.9 RDW 17.6 H Plt Count 287 MPV 10.1 Immature Gran % (Auto) Neut % (Auto) Lymph % (Auto) Kerr % (Auto) Eos % (Auto) Baso % (Auto) Lymph # (Auto) Kerr # (Auto) Eos # (Auto) Baso # (Auto) Abs Immat Gran (auto) Absolute Neuts (auto) Absolute Nucleated RBC 0.000 Nucleated RBC % (auto) 0.0 Smear Tech's Comments ESR Anion Gap 15 Estim Creat Clear Calc 108.3 Estimated GFR > 60 POC Glucose 154 H 103 Random Glucose 104 Estimat Average Glucose 103 Hemoglobin A1c % 5.2 Calcium 9.1 Magnesium 1.4 L* Total Bilirubin 0.8 AST 55 H ALT 31 Alkaline Phosphatase 187 H C-Reactive Protein Total Protein 6.4 L Albumin 4.1 Urine Color Urine Appearance Urine pH Ur Specific [place]ita Urine Protein Urine Glucose (UA) Urine Ketones Urine Blood Urine Nitrite Ur Leukocyte Esterase Urine Opiates Screen Ur Buprenorphine Scrn Ur Oxycodone Screen Urine Methadone Screen Urine Fentanyl Screen Ur Barbiturates Screen Ur Phencyclidine Scrn Ur Amphetamines Screen U Benzodiazepines Scrn Urine Cocaine Screen U Marijuana (THC) Screen Ethyl Alcohol Assessment and Plan (1) Acute hypernatremia: Status: Acute Plan 68M PMH pafib, etoh dependence, dm, htn, presented with SI complicated by etoh withdrawal and hypernatremia Alcohol dependence with withdrawal Continue phenobarbital protocol, follow up CIWA Mood disorder with suicidal ideation Continue Cymbalta, BuSpar Once medically cleared will need care team eval Paroxysmal atrial fibrillation with rapid ventricular response Continue metoprolol, Cardizem, digoxin, Pradaxa Hypernatremia Resolved Acute hypomagnesemia Replace and monitor Diabetes Insulin sliding scale Chronic right foot wound Wound consult Hypertension Continue metoprolol, diltiazem DVT prophylaxis on Pradaxa Full code reason for continued hospitalization: Ongoing phenobarbital protocol Quality Stroke Does the patient have a stroke diagnosis?: No VTE Prior VTE?: No VTE Risk Level:: Medical - moderate - high VTE Device Contraindication: Treatment Not Indicated VTE Drug Contraindication: N/A - Med Ordered
[2023-12-12] MEDS: buPROPion HCl XL 150 MG TAB.ER.24H PO (10:54)
[2023-12-12] MEDS: Thiamine HCL 100 MG TABLET PO (10:54)
[2023-12-12] MEDS: Ascorbic Acid 500 MG TABLET PO (10:54)
[2023-12-12] MEDS: busPIRone HCl 10 MG TABLET PO ×2 (10:54→20:50)
[2023-12-12] MEDS: PHENobarbitaL 30 MG TABLET 60 MG PO ×2 (10:54→20:50)
[2023-12-12] MEDS: allopurinoL 100 MG TABLET 200 MG PO (10:54)
[2023-12-12] MEDS: dilTIAZem HCL CD 180 MG CAP.ER.24H PO (10:54)
[2023-12-12] MEDS: Empagliflozin 10 MG TABLET PO (10:54)
[2023-12-12] MEDS: DULoxetine HCl 60 MG CAPSULE.DR PO (10:55)
[2023-12-12 10:56] VITALS: BP 181/82; PULSE 96; RESP 18; TEMP 36.6; O2SAT 97
[2023-12-12 11:00] LABS: Glucose, Whole Blood 229 mg/dL (60-115)
[2023-12-12] MEDS: Ibuprofen 400 MG TABLET PO (13:39)
[2023-12-12] MEDS: Dabigatran Etexilate Mesylate 150 MG CAPSULE PO ×2 (13:39→20:50)
--- NOTE | 2023-12-12 14:51 | MHC.RECOVRN ---
AUDIT-C Brief Intervention Pt had positive screen for unhealthy alcohol use on admission, subsequently met with t/w to discuss alcohol use and recovery supports/options. Pt voices concern regarding alcohol use and is aware that drinking at unhealthy levels is known to increase risk of alcohol related health problems. Pt reports 1.75 liters of 80 proof vodka daily . Pt expresses how alcohol use has impacted health, including negative impact on his family, states his drinking has resulted in a divorce and his children are not speaking to him. Discussed risk reduction strategies including drinking below the recommended limit. Provided pt with written resources including information on inpatient and outpatient treatment, [facility], harm reduction, and recovery coaching. Pt plans to continue with his resources he has stating I go to AA, and have people I talk to . Pt provided with t/w contact information if questions or concerns arise. Denies other questions or concerns at this time.
--- NOTE | 2023-12-12 15:01 | HO.WOUND ---
Wound Consult: Initial 68yr old?admitted to [facility] on 12/11/23 - See progress notes and H&P for detailed history.? Wound consult placed for Right Lower Leg wounds POA.? Patient agreeable to assessment and photo documentation.? Patient reports he has followed with [facility] outpt wound clinic for care in the past - chart review reveals last appointment was August 2023. Patient aware he should follow up with outpt wound clinic at time of d/c. Left BKA Site - healed and resurfaced - no injury noted at this time. Right knee - stable scab in place - no topical recommendations needed at this time. Right Foot Etiology: ? Diabetic Wound Present on Admission Wound Bed: dry stable scab Drainage / Odor: None Edges: ? irregular Delmi wound: pink erythema noted ? No Induration, Fluctuance or Warmth noted Pain: denies Goals of Treatment: Foam dressing for moist wound healing Right Heel - Resolving almost resurfaced Diabetic Wound - dry stable scab no drainage noted - No topical interventions needed at this time. Right Middle and index finger noted for thermal hernandez per pt statement he burned them on his oven. Currently the index finger is serous filled and intact partial thickness - the middle finger is firm and opaque blister suspected deep partial thickness burn. Will notify provider and direct care team to monitor and contact is rupture or need treatment. Of note patient has neuropathy to his feet and hands. Patient educated on protection when handling objects and having neuropathy. Recommendations: 1. Turn and Reposition every 2 hours and as needed for patient comfort.? Use pillows or wedges to support off loading positions. 2. Off Load all bony prominences with use of pillows and heel boots if needed.? Apply Preventative foams where needed. ? 3. Monitor for incontinence and moisture control, use barrier creams when needed for prevention and treatment. 4. Provide adequate and supplemental nutrition.? 5. Order or Continue low air loss mattress. 6. When applicable maintain blood glucose levels per Providers order. 7. Right Foot and knee - Cleanse with NS, Cover with foam dressing and change every 3-4 days. 8. Right finger hernandez - monitor for worsening or unroofing of blisters - if open cover with xeroform and gauze wrap, change daily. Re-consult wound care Nurse for wound deterioration or wound changes.
[2023-12-12 15:27] VITALS: BP 127/72; PULSE 77; RESP 21; TEMP 36.4; O2SAT 96
[2023-12-12 15:39] LABS: Glucose, Whole Blood 85 mg/dL (60-115)
[2023-12-12 19:20] VITALS: BP 148/84; PULSE 87; RESP 20; TEMP 36.4; O2SAT 98
[2023-12-12 20:50] LABS: Glucose, Whole Blood 96 mg/dL (60-115)
[2023-12-12] MEDS: Atorvastatin Calcium 20 MG TABLET PO (20:50)
[2023-12-13 00:07] VITALS: BP 164/98; PULSE 77
[2023-12-13 03:47] VITALS: BP 142/80; PULSE 82; RESP 20; TEMP 36.1; O2SAT 99
[2023-12-13 07:01] LABS: Hematocrit 41.9 % (42.0-52.0); Hemoglobin 14.7 g/dl (14.0-18.0); Mean Corpuscular HGB Conc 35.1 g/dl (31.0-36.0); Mean Corpuscular Hemoglobin 33.9 pg (27.0-33.0); Mean Corpuscular Volume 96.8 fL (80.0-98.0); Mean Platelet Volume 10.2 fL (9.4-12.4); Platelet Count 303 X10*3/uL (160-400); Red Blood Count 4.33 X10*6/uL (4.60-5.80); Red Cell Distribution Width 17.1 % (11.0-16.0); White Blood Count 5.5 X10*3/uL (4.8-10.8)
[2023-12-13 07:23] LABS: Blood Urea Nitrogen 10 mg/dL (9-16); Calcium 9.8 mg/dL (8.4-10.2); Creatinine Clr Calc Pharmacy 108.3; Estimated Glomerular Filt Rate > 60; Glucose Fasting 118 mg/dL (60-99); Magnesium 1.7 mg/dL (1.6-2.6)
[2023-12-13 07:32] LABS: Anion Gap 15 (12-20); Carbon Dioxide 31 mmol/L (22-29); Chloride 99 mmol/L (96-108); Potassium 4.1 mmol/L (3.3-5.1); Sodium 141 mmol/L (135-145)
[2023-12-13 08:00] VITALS: BP 145/80; PULSE 75; RESP 20; TEMP 36.4; O2SAT 100
[2023-12-13 08:05] LABS: Glucose, Whole Blood 125 mg/dL (60-115)
[2023-12-13] MEDS: Empagliflozin 10 MG TABLET PO (09:49)
[2023-12-13] MEDS: Multivitamin TABLET 1 TAB PO (09:49)
[2023-12-13] MEDS: allopurinoL 100 MG TABLET 200 MG PO (09:49)
[2023-12-13] MEDS: DULoxetine HCl 60 MG CAPSULE.DR PO (09:49)
[2023-12-13] MEDS: Magnesium Oxide 400 MG TABLET PO ×2 (09:49→16:13)
[2023-12-13] MEDS: Digoxin 0.125 MG TABLET PO (09:49)
[2023-12-13] MEDS: busPIRone HCl 10 MG TABLET PO (09:49)
[2023-12-13 09:50] VITALS: BP 153/90; PULSE 63
[2023-12-13] MEDS: dilTIAZem HCL CD 180 MG CAP.ER.24H PO (09:50)
[2023-12-13] MEDS: Metoprolol Tartrate 50 MG TABLET PO (09:50)
[2023-12-13] MEDS: Ascorbic Acid 500 MG TABLET PO (09:50)
[2023-12-13] MEDS: PHENobarbitaL 30 MG TABLET 60 MG PO (09:50)
[2023-12-13] MEDS: buPROPion HCl XL 150 MG TAB.ER.24H PO (09:50)
[2023-12-13] MEDS: Thiamine HCL 100 MG TABLET PO (09:50)
[2023-12-13] MEDS: Folic Acid 1 MG TABLET PO (09:51)
[2023-12-13] MEDS: 0.9 % Sodium Chloride Flush 3 ML SYRINGE IVFLUSH ×2 (09:59→16:13)
[2023-12-13] MEDS: Dabigatran Etexilate Mesylate 150 MG CAPSULE PO (10:23)
--- NOTE | 2023-12-13 11:48 | MHC.CM.PN ---
CM MET W/PT AT BEDSIDE, CM ENCOURAGING PT TO FOLLOW-UP W/[facility] HE WOULD LIKE SERVICES, PT REPORTS HE ACTUALLY SPOKE TO HIM AND HE HAS A LIST OF ITEMS HE NEEDS TO SUPBMIT TO , PT DECLINING ANY FURTHER FINANCIAL/INSURANCE ASSISTANCE. PT REPORTS HE WILL LIKELY GO HOME W/SERVICES HE HAS A CAT AT HOME AND HE IS FROM IS GOING AWAY FOR THE W/E AN WOULDN'T BE ABLE TO FEED THE XIN IF PT GOES TO [facility], PT ALSO REPORTS HE NEEDS TO TAKE CARE OF THE HOUSE HOWEVER WOULD LIKE TO SEE WHAT PT HAS TO SAY. PT EVAL PREVIOUSLY ORDERED. REFERRAL WILL BE PLACED TO [facility] IS NOT ACCEPTING NEW PTS UNTIL MONDAY AND PT WILL BE CLEARED TO DC TODAY. PT AGREEABLE TO REFERRAL TO [facility] AND [facility] WILL MEET W/PT AT BEDSIDE. PT CLEARED BY CARE TEAM.
[2023-12-13 12:00] VITALS: BP 145/82; PULSE 66; RESP 18; TEMP 36.7; O2SAT 98
[2023-12-13 12:05] LABS: Glucose, Whole Blood 88 mg/dL (60-115)
--- NOTE | 2023-12-13 12:24 | MHC.CM.PN ---
LATE ENTRY NOTE FROM 12/12/23, IMM 12/12/23, EMR REVIEWED PT W/SI/HYPERNATREMIA AND ETOH WITHDRAWAL, CM MET W/PT WHO IS TEARFUL AND REPORTS HE LIVES ALONE HIS MOVED OUT, PT LOST HIS [facility] INSURANCE AND CURRENTLY HAS MEDICARE A/B, PT INITIALLY REPORTED HE HAD ALL OF THE INFO HE NEEDED FOR [facility] AT HOME AND DECLINED ASSISTANCE FROM CM, CM DID WRITE DOWN [facility] MEMBER BENEFITS CONTACT NUMBER AND MOVED BEDSIDE TABLE W/PHONE NEXT TO PT. PT REPORTS HE HAS A PROSTHETIC LEFT LEG, A WC D/T HAVING A WOUND ON THE TOP OF HIS R FOOT AND HAVING DIFFICULTY GETTING AROUND W/PROSTHETIC. PT DENIES HAVING HOME SERVICES AND REPORTS HE IS OPEN TO [facility] SERVICES. PCP/HCP ON FILE VERIFIED.
--- NOTE | 2023-12-13 14:07 | P.DS_ITS ---
DS: Providers Provider Date of Service: 12/13/23 Date of admission: 12/11/23 23:04 Date of discharge: 12/13/23 Primary care physician: Nikole Mauricio MD Consults: 12/11/23 17:18 Consult to Care Team Stat Comment: Reason for consultation: drunk. SI statement, divorce from 12/11/23 23:27 Consult to Wound Care Routine Reason for consultation: Right foot chronic wounds 12/12/23 02:52 Addiction Medicine Routine Consulting Provider: Addiction Covering Reason for consultation: alcohol use Has provider been notified: Yes 12/13/23 08:10 Consult to Care Team Routine Comment: Reason for consultation: Medically clear for eval for placement. DS: Diagnosis Discharge Diagnosis (1) Acute hypernatremia: Status: Acute (2) Suicide ideation: Status: Acute (3) Alcohol withdrawal: Status: Resolved (4) Acute alcohol intoxication: Status: Inactive (5) A-fib: Status: Acute (6) Physical deconditioning: Status: Acute (7) Hypomagnesemia: Status: Acute DS: Summary Hospital Course Hospital Course: Admission note TONI Francis is a very pleasant 68 years old man with past medical history significant for alcohol abuse, essential hypertension and atrial fibrillation was brought to emergency department via EMS due to suicidal ideation. Patient stated that he feels very depressed as he is going through divorce and financial issues. He does not have a plan. He denied any symptoms such as headache, palpitations, dizziness, shortness on breath, chest pain, abdominal pain, nausea, vomiting or diarrhea. Denies fever or chills. He drinks vodka -as time he drank was before coming to the hospital. Denied illicit drug use. He does have chronic wounds to his right feet for which he gets care at wound clinic. He has not been taking any of his home medications. In the ED he was found to have tachycardia. Blood workup was remarkable for hyponatremia of 151. There are no other significant electrolyte imbalances. CO2 is elevated. Renal function is normal. AST is 46, ALT 27, total bilirubin 0.4 and alk-phos 177. CRP, albumin and total protein are normal. Glucose 120. There is no leukocytosis. Hemoglobin is 13.7 and platelets 280. UA showed no evidence of urinary tract infection. Head CT and C-spine scan showed no acute pathology. Right lower extremity ultrasound showed no DVT. Hospital course - Alcohol dependence with withdrawal Treated with phenobarbital protocol as he had mild withdrawal symptoms. followed by [facility] protocol. scored 0 on day of discharge. tolerating diet well. advised complete abstinence from alcohol and follow with outpatient resources. - Mood disorder with suicidal ideation, Denies any suicidal ideation. reports it was the effect of alcohol and he did not mean it or planned it before. Seen by Care team who felt he is safe for discharge and carries no suicidal risk. To continue Cymbalta, BuSpar. - Paroxysmal atrial fibrillation with rapid ventricular response, Responded well to metoprolol, Cardizem, digoxin, Pradaxa. Continue the same on Discharge. - Acute Hypernatremia, Resolved with hydration - Acute hypomagnesemia,Replaced and monitored. To be discharged on supplement. Discharge plan Start Folic acid and Magnesium supplement we advise you complete abstinence from Alcohol Continue home medications as prescribed physical therapy at home follow with outpatient AA and other resources as scheduled. Time Attestation Discharge Coordination Time (in mins): 38 Quality: Safe Use of Opioids Does Pt have an Active Cancer Diagnosis on the Problem List?: No Quality: Stroke Does the patient have a stroke diagnosis?: No Physical Exam Vital Signs: Vital Signs: Last Vital Signs Temp 98.1 F 12/13/23 12:00 Pulse 66 12/13/23 12:00 Resp 18 12/13/23 12:00 BP 145/82 H 12/13/23 12:00 Pulse Ox 98 12/13/23 12:00 O2 Del Method Room Air 12/13/23 12:00 BMI result Body Mass Index 27.2 Const: Other: Constitutional : Awake, interactive, not in distress Neck : Normal inspection, Supple Cardiovascular : RRR, no JVP, no lower extremity edema Respiratory : good bilateral air entry, no crackles, wheezes or rhonchi Gastrointestinal: soft, lax, Normal bowel sounds Skin : Warm, Dry, small wound RLE extremities: Left BKA Neurological : Alert & oriented x3, No focal deficit DS: Data Data Completed and Pending Completed studies during hospitalization [Text1]: Procedures Detoxification Services for Substance Abuse Treatment (10/06/23) Labs on day of discharge: Laboratory Results - last 24 hr 12/12/23 12/12/23 12/13/23 15:36 20:47 06:21 WBC 5.5 RBC 4.33 L Hgb 14.7 Hct 41.9 L MCV 96.8 MCH 33.9 H MCHC 35.1 RDW 17.1 H Plt Count 303 MPV 10.2 Absolute Nucleated RBC 0.000 Nucleated RBC % (auto) 0.0 Sodium 141 Potassium 4.1 D Chloride 99 Carbon Dioxide 31 H Anion Gap 15 BUN 10 Creatinine 0.78 Estim Creat Clear Calc 108.3 Estimated GFR > 60 POC Glucose 85 96 Fasting Glucose 118 H Calcium 9.8 D Magnesium 1.7 12/13/23 12/13/23 07:22 11:54 WBC RBC Hgb Hct MCV MCH MCHC RDW Plt Count MPV Absolute Nucleated RBC Nucleated RBC % (auto) Sodium Potassium Chloride Carbon Dioxide Anion Gap BUN Creatinine Estim Creat Clear Calc Estimated GFR POC Glucose 125 H 88 Fasting Glucose Calcium Magnesium Imaging Chest x-ray: Radiologist's impression: ITS Impressions Cervical Spine CT 12/11/23 17:08 IMPRESSION: 1. No acute intracranial pathology. 2. No CT evidence of acute cervical spine fracture or traumatic subluxation Electronically signed by: Raza Castanon MD 12/11/2023 08:04 PM EDT Venous Duplex 12/11/23 17:41 IMPRESSION: No evidence of deep venous thrombosis involving the right lower extremity, extending from the common femoral vein to the popliteal vein. The calf veins are not visualized due to swelling. If the patient's symptoms persist, followup ultrasound in 5 days 7 days might be of value to exclude proximal propagation from a non-visualized calf vein. Electronically signed by: Oel Bailey MD 12/11/2023 06:[address] 12/11/23 18:02 IMPRESSION: 1. No acute intracranial pathology. 2. No CT evidence of acute cervical spine fracture or traumatic subluxation Electronically signed by: Raza Castanon MD 12/11/2023 08:04 PM EDT Discharge Plan Discharge Anticipated Discharge Date/Time: 12/13/23 14:01 Patient Disposition: Home Health Service Discharge Diagnosis: Alcohol withdrawal physical deconditioning Referrals: [facility] [Other] - 1 Day (CARE TEAM HAS SENT REFERRAL TO [facility], SOMEONE WILL CONTACT YOU ONCE THEY REVIEW YOUR REFERRAL. IF YOU WOULD LIKE TO FOLLOW UP PLEASE CALL [phone] [facility]. ) [facility] [Outside] - 1 Day ([facility], A NURSE WILL CONTACT YOU AND FIRST VISIT WILL BE TOMORROW 12/13. ) Nikole Mauricio MD [Primary Care Provider] - 1 Week Discharge Medications: New magnesium oxide 400 mg (241.3 mg magnesium) Tablet 400 mg PO DAILY Qty: 90 0RF folic acid 1 mg Tablet 1 mg PO DAILY Qty: 90 0RF Continued (DME) blood-glucose meter [FreeStyle Lite Meter] Kit See Rx Instructions .ROUTE .MEDSUPPLY Qty: 1 0RF Rx Instructions: As directed 3x/day (DME) FreeStyle Lite Strips Strip See Rx Instructions .Route Qty: 300 3RF Rx Instructions: Test blood sugar TID (DME) lancets [FreeStyle Lancets] 28 gauge misc See Rx Instructions .Route Qty: 300 3RF Rx Instructions: Test blood sugar TID thiamine HCl (vitamin B1) 100 mg tablet 100 mg PO DAILY Qty: 90 3RF (DME) blood pressure test kit-medium Kit See Rx Instructions .Route Qty: 1 0RF Rx Instructions: As directed to monitor BP at home ascorbic acid (vitamin C) [Vitamin C] 500 mg tablet 500 mg PO DAILY Qty: 90 3RF folic acid 1 mg tablet 1 mg PO DAILY Qty: 90 3RF Farxiga 10 mg tablet 10 mg PO DAILY Qty: 90 1RF dabigatran etexilate [Pradaxa] 150 mg capsule 150 mg PO BID 90 Days Qty: 180 3RF metoprolol tartrate 50 mg tablet 50 mg PO BID 90 Days Qty: 180 3RF digoxin 125 mcg (0.125 mg) tablet 125 mcg PO DAILY 90 Days Qty: 90 3RF diltiazem HCl 180 mg capsule,ext.rel 24h degradable 180 mg PO DAILY 90 Days Qty: 90 3RF atorvastatin 20 mg tablet 20 mg PO BEDTIME 30 Days Qty: 30 3RF (DME) bedside commode Kit See Rx Instructions .Route Qty: 1 0RF Rx Instructions: As directed (DME) wheelchair-16 inch wide with removable footrests 16 inch wide See Rx Instructions .Route .MEDSUPPLY Qty: 1 0RF Rx Instructions: As directed buspirone 10 mg Tablet 10 mg PO BID bupropion HCl 150 mg tablet extended release 24 hr 150 mg PO DAILY Trulicity 3 mg/0.5 mL pen injector 3 mg subcut WE metformin 500 mg tablet 1,000 mg PO BID lisinopril 10 mg tablet 10 mg PO DAILY allopurinol 100 mg tablet 200 mg PO DAILY (DME) FreeStyle Erika 14 Day Sensor Kit See Rx Instructions .Route Qty: 1 4RF Rx Instructions: As directed multivitamin Tablet 1 tab PO DAILY duloxetine 60 mg capsule,delayed release(DR/EC) 60 mg PO DAILY naltrexone 50 mg tablet 50 mg PO DAILY Discharge Orders: Discharge Order (Routine); Ordered 12/13/23 Ordered By: Maria Esther Rodriguez Diet: Advance to usual diet Activity on Discharge: As tolerated Stand Alone Forms: Patient Portal Discharge page Print Language: Tanzanian Care Plan Goals: Start Folic acid and Magnesium supplement we advise you complete abstinence from Alcohol Continue home medications as prescribed physical therapy at home follow with outpatient AA and other resources as scheduled. Health Concerns: Read below Plan of Treatment: Read below Assessment: Read below Discharge Date/Time: 12/13/23 19:58
--- NOTE | 2023-12-13 14:14 | P.F2F_ITS ---
Service Date Service Date: 12/13/23 Encounter Date of encounter: 12/13/23 Reasons for Services Signs and symptoms assessed: physical deconditioning Reason for physical therapy: home safety and mobility and therapeutic exercises Homebound: Leaving the home is medically contraindicated at this time without the asist of a device and/or another person due th the listed conditions above and below. Reason homebound: unable to drive Certification: Based on the above findings, I certify that this patient is confined to the home and needs intermittent long-term care, physical therapy and/or speech therapy, or continues to need occupational therapy. The patient is under my care, and I have initiated the establishment of the plan of care. The patient will be followed by a physician who will periodically review the plan of care. Time Spent With Patient Time: Total time managing care of this patient today ____ minutes.
--- NOTE | 2023-12-13 14:19 | MHC.CARE ---
PHP Referral was completed for this individual to [facility].
--- NOTE | 2023-12-13 14:35 | MHC.CM.PN ---
Addendum entered by Emma Nolan RN 12/13/23 16:02: PER CARE TEAM SOMEONE FROM [facility] WILL REACH OUT TO PT AFTER THEY REVIEW HIS REFERRAL. CARE TEAM ALSO FOLLOWED UP W/CM AFTER SPEAKING TO PT'S AND PLAN WILL BE FOR COMPETENCY EVAL IF HER RETURNS D/T [facility] EVAL AT HOME, [facility] RECOMMENDATIONS OR PT FAILS AT HOME. Addendum entered by Emma Nolan RN 12/13/23 15:14: CARE TEAM REFERRING PT TO [facility] Original Note: PT MEDICALLY CLEARED TO DC HOME W/[facility] FOR SN/PT, PT'S EXWIFE WILL UNLOCK HOUSE AFTER SHE GETS OUT OF WORK AT 4PM, [facility] FOR TRANSPORT AT 6PM
[2023-12-13 16:01] LABS: Glucose, Whole Blood 202 mg/dL (60-115)
[2023-12-13] MEDS: Insulin Lispro 100 UNIT/ML 3 ML VIAL SUBCUT (16:12)
== END 2023-12-13 19:58 | disposition home health service (06) | DRG 897 ==
LOC: HO.ED 17:40 → HO.EDOVER 23:37 → HO.IMC 12-12 00:53
PROVIDERS: Internal Medicine; Physician Assistant; Admitting Provider Internal Medicine; Emergency Provider Internal Medicine; PCP Internal Medicine; Visit Provider Student in an Organized Health Care Education/Training Program
DX: F10.239 Alcohol dependence with withdrawal, unspecified (principal); E87.0 Hyperosmolality and hypernatremia; R45.851 Suicidal ideations; F39 Unspecified mood [affective] disorder; I25.10 Atherosclerotic heart disease of native coronary artery without angina pectoris; E83.42 Hypomagnesemia; E78.5 Hyperlipidemia, unspecified; Y90.8 Blood alcohol level of 240 mg/100 ml or more; I10 Essential (primary) hypertension; F10.229 Alcohol dependence with intoxication, unspecified; Z89.512 Acquired absence of left leg below knee; Z79.84 Long term (current) use of oral hypoglycemic drugs; Z79.85 Long-term (current) use of injectable non-insulin antidiabetic drugs; Z79.899 Other long term (current) drug therapy
CPT/HCPCS: 36415; 70450; 72125; 80048; 80053; 80307; 81003; 82947; 83036; 83735; 85025; 85027; 85652; 86140; 93005; 93971; 97162; 99285; J1160; J1920; J2560; J3411; J3475; S9485

== ENCOUNTER → 2023-12-11 17:37 | Outpatient (BNV) | payer OTHER, SELFPAY | PROVIDERS: Emergency Provider Internal Medicine; PCP Internal Medicine; Visit Provider Internal Medicine | DX: R45.851 Suicidal ideations (principal); F10.930 Alcohol use, unspecified with withdrawal, uncomplicated; F32.A Depression, unspecified; E87.0 Hyperosmolality and hypernatremia | CPT/HCPCS: 99223; 99232; 99239; G0180 ==

== ENCOUNTER 2023-12-16 15:46 | Emergency (ER) | payer MEDICARE, SELFPAY ==
--- NOTE | ~2023-12-16 | CT_ITS ---
EXAMINATION: CT HEAD WITHOUT CONTRAST CLINICAL INFORMATION: COMPARISON: None available. TECHNIQUE: Contiguous axial imaging was performed from the skull base to vertex without intravenous administration of contrast. This CT examination was performed using dose optimization techniques as appropriate, variously including the following: *Automated exposure control *Adjustment of mA and/or kV according to patient size (this includes techniques or standardized protocols for targeted exams where dose is matched to indication/reason for exam; i.e. extremities or head) *Use of iterative reconstruction technique DLP: 796 mGy-cm FINDINGS: There is no evidence of acute intracranial hemorrhage or territorial infarction. No abnormal mass effect or midline shift is seen. Francis to white matter differentiation is well preserved. No extra-axial fluid collections are identified. No hydrocephalus. There is mild global volume loss and patchy periventricular white matter change. There is no abnormal attenuation within the brain parenchyma. The osseous structures and soft tissues are normal. The mastoid air cells and visualized portions of the paranasal sinuses are well aerated. CT/CT head/brain wo IV con IMPRESSION: No acute intracranial pathology. Sequela of microangiopathy and mild global volume loss Electronically signed by: Boone Gonzalez MD 12/16/2023 05:03 PM EDT
[2023-12-16 15:54] VITALS: BP 190/113; PULSE 82; PULSE 84; RESP 18; TEMP 36.6; O2SAT 97; BMI 28.6
--- NOTE | 2023-12-16 15:57 | ED.GENADULT ---
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 Patient states he has been drinking however is very angry upon arrival, he does not want to be here. Not suicidal homicidal. He is well known to this facility and comes in with similar presentations in the past. Patient is far too intoxicated to obtain accurate history and review of systems. Related Data Home Medications ?Medication ?Instructions ?Recorded ?Confirmed duloxetine 60 mg capsule,delayed 60 mg PO DAILY 12/21/19 12/12/23 release multivitamin 1 tab PO DAILY 02/27/20 12/12/23 allopurinol 100 mg tablet 200 mg PO DAILY 02/08/21 12/12/23 naltrexone 50 mg tablet 50 mg PO DAILY Alcohol Withdrawal 08/24/22 12/12/23 bupropion HCl 150 mg 24 hr tablet, 150 mg PO DAILY 06/01/23 12/12/23 extended release dulaglutide 3 mg/0.5 mL 3 mg subcut WE 06/01/23 12/12/23 subcutaneous pen injector (Trulicity) buspirone 10 mg tablet 10 mg PO BID 10/06/23 12/12/23 lisinopril 10 mg tablet 10 mg PO DAILY 12/12/23 metformin 500 mg tablet 1,000 mg PO BID 12/12/23 12/12/23 Previous Rx's ?Medication ?Instructions ?Recorded blood-glucose meter (FreeStyle #1 ea 04/23/20 Lite Meter kit) blood sugar diagnostic (FreeStyle #300 ea 02/11/21 Lite Strips) lancets 28 gauge (FreeStyle #300 ea 02/11/21 Lancets) thiamine HCl (vitamin B1) 100 mg 100 mg PO DAILY #90 tabs 07/12/22 tablet flash glucose sensor (FreeStyle #1 ea 07/14/22 Erika 14 Day Sensor kit) blood pressure test kit-medium #1 ea 08/03/22 ascorbic acid (vitamin C) 500 mg 500 mg PO DAILY #90 tabs 10/17/22 tablet (Vitamin C) folic acid 1 mg tablet 1 mg PO DAILY #90 tabs 05/17/23 dapagliflozin propanediol 10 mg 10 mg PO DAILY #90 tabs 06/15/23 tablet (Farxiga) atorvastatin 20 mg tablet 20 mg PO BEDTIME 30 days #30 tabs 08/30/23 dabigatran etexilate 150 mg 150 mg PO BID 90 days #180 caps 08/30/23 capsule (Pradaxa) digoxin 125 mcg (0.125 mg) tablet 125 mcg PO DAILY 90 days #90 caps 08/30/23 diltiazem HCl 180 mg 180 mg PO DAILY 90 days #90 caps 08/30/23 capsule,extended release 24 hr, controlled metoprolol tartrate 50 mg tablet 50 mg PO BID 90 days #180 tabs 08/30/23 commode (bedside commode) #1 ea 09/29/23 wheelchair-16 inch wide with #1 ea 09/29/23 removable footrests folic acid 1 mg tablet 1 mg PO DAILY #90 tabs 12/13/23 magnesium oxide 400 mg (241.3 mg 400 mg PO DAILY #90 tabs 12/13/23 magnesium) tablet Allergies Allergy/AdvReac Type Severity Reaction Status Date / Time vancomycin [VANCOMYCIN] Allergy Severe ANGIOEDEMA Verified 12/16/23 15:55 Sulfa (Sulfonamide Allergy Intermediate Rash Verified 12/16/23 15:55 Antibiotics) sulfamethoxazole Allergy rash Verified 12/16/23 15:55 [From Bactrim] trimethoprim [From Bactrim] Allergy Rash Verified 12/16/23 15:55 Review of Systems Review of Systems: Yes all other systems are reviewed and are negative [facility] Past Medical History Attestation statement: The following information was validated with the patient. Source: old records reviewed and nursing notes reviewed Medical History Rosacea Annual physical exam Persistent atrial fibrillation Orthostatic hypotension Lymphoma Depression Essential hypertension Hyperlipidemia LDL goal <100 Obesity due to excess calories BMI 30.0-30.9,adult DM (diabetes mellitus) ETOH abuse BPH associated with nocturia CAD (coronary artery disease) Long-term current use of intravenous immunoglobulin (IVIG) GERD (gastroesophageal reflux disease) Hypogammaglobulinemia Diabetic eye exam Adjustment disorder PAF (paroxysmal atrial fibrillation) Gout Chronic osteomyelitis Splenic marginal zone b-cell lymphoma EMIL (obstructive sleep apnea) Surgical History Status post below-knee amputation of left lower extremity Osteomyelitis Osteomyelitis History of esophagogastroduodenoscopy (EGD) History of colonoscopy History of bunionectomy History of cardiac cath Family History Family History Father Diabetes Mother Liver cancer Maternal Grandfather CVD (cardiovascular disease) Brother Myocardial infarction Social History Social History Household Members: None Housing: House Do you presently have visiting nurse or other home services: No Alcohol intake: current Alcohol intake frequency: 3 or more drinks per day Alcohol type: hard liquor Comment: sitter in room / video Patient Tobacco Use Status: Never used Tobacco e-Cigarette/Vaping Use: Never Used Second Hand Smoke Exposure: No Advance Directives Date on File: 06/02/23 service: No Current occupational status: employed 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 Oriented X3.? No acute distress.? Patient belligerent, smells like alcohol. Head: Normocephalic, atraumatic, no step-offs or deformities Eyes: Pupils equal, round and reactive to light.? Neck: Normal inspection.? Neck supple.? CVS: Normal heart rate and rhythm.? Pulses normal.? Respiratory: No respiratory distress.? Breath sounds normal.? Abdomen: Soft and nontender.? Skin: Skin warm and dry.? Normal skin color.? Normal skin turgor.? Extremities: No lower extremity edema.? No calf ttp. 5/5 strength to bilateral upper and lower extremities Neuro: Oriented X 3.? No motor deficit.? No sensory deficit. CN 2-12 intact Course Reevaluation(s) Reevaluation #1: Patient not cooperative. Sign out to Gordo VELASCO pending labs and urine. Time: 16:01 Medical Decision Making Medical Decision Making [facility] Narrative: 1558 68-year-old male presents with alcohol intoxication no reports of trauma. Physical exam patient is belligerent, smells like alcohol. Very angry with staff members. History and physical exam concerning for alcohol intoxication. No signs of trauma head, neck, chest, abdomen or pelvis. Will rule out metabolic derangements. My exam is limited secondary to acute alcohol intoxication. Plan labs, medical clearance, evaluation by recovery Differential Diagnosis Differential Diagnoses: The differential diagnosis associated with the presentation includes History and physical exam concerning for alcohol intoxication. No signs of trauma head, neck, chest, abdomen or pelvis. Will rule out metabolic derangements. Admission/Observation Consideration of admission/observation: Escalation of care including admission/observation considered possible External Record Review External record reviewed: Inpatient record, Office record, Outpatient record, Prior outpatient labs, Prior outpatient radiology, Primary care record and Outside ED record Chronic Conditions Patient?s care impacted by: Other (See HPI ) Discharge Plan Discharge Clinical Impression: Alcohol intoxication Patient Disposition: Still a Patient Prescriptions: No Action (DME) blood-glucose meter [FreeStyle Lite Meter] Kit See Rx Instructions .ROUTE .MEDSUPPLY Qty: 1 0RF Rx Instructions: As directed 3x/day (DME) FreeStyle Lite Strips Strip See Rx Instructions .Route Qty: 300 3RF Rx Instructions: Test blood sugar TID (DME) lancets [FreeStyle Lancets] 28 gauge misc See Rx Instructions .Route Qty: 300 3RF Rx Instructions: Test blood sugar TID thiamine HCl (vitamin B1) 100 mg tablet 100 mg PO DAILY Qty: 90 3RF (DME) blood pressure test kit-medium Kit See Rx Instructions .Route Qty: 1 0RF Rx Instructions: As directed to monitor BP at home ascorbic acid (vitamin C) [Vitamin C] 500 mg tablet 500 mg PO DAILY Qty: 90 3RF folic acid 1 mg tablet 1 mg PO DAILY Qty: 90 3RF Farxiga 10 mg tablet 10 mg PO DAILY Qty: 90 1RF dabigatran etexilate [Pradaxa] 150 mg capsule 150 mg PO BID 90 Days Qty: 180 3RF metoprolol tartrate 50 mg tablet 50 mg PO BID 90 Days Qty: 180 3RF digoxin 125 mcg (0.125 mg) tablet 125 mcg PO DAILY 90 Days Qty: 90 3RF diltiazem HCl 180 mg capsule,ext.rel 24h degradable 180 mg PO DAILY 90 Days Qty: 90 3RF atorvastatin 20 mg tablet 20 mg PO BEDTIME 30 Days Qty: 30 3RF (DME) bedside commode Kit See Rx Instructions .Route Qty: 1 0RF Rx Instructions: As directed (DME) wheelchair-16 inch wide with removable footrests 16 inch wide See Rx Instructions .Route .MEDSUPPLY Qty: 1 0RF Rx Instructions: As directed buspirone 10 mg Tablet 10 mg PO BID bupropion HCl 150 mg tablet extended release 24 hr 150 mg PO DAILY Trulicity 3 mg/0.5 mL pen injector 3 mg subcut WE metformin 500 mg tablet 1,000 mg PO BID lisinopril 10 mg tablet 10 mg PO DAILY magnesium oxide 400 mg (241.3 mg magnesium) Tablet 400 mg PO DAILY Qty: 90 0RF folic acid 1 mg Tablet 1 mg PO DAILY Qty: 90 0RF allopurinol 100 mg tablet 200 mg PO DAILY (DME) FreeStyle Erika 14 Day Sensor Kit See Rx Instructions .Route Qty: 1 4RF Rx Instructions: As directed multivitamin Tablet 1 tab PO DAILY duloxetine 60 mg capsule,delayed release(DR/EC) 60 mg PO DAILY naltrexone 50 mg tablet 50 mg PO DAILY Print Language: Spanish
[2023-12-16 16:30] LABS: MANUAL DIFF FLAG NO
[2023-12-16 16:34] LABS: Basophils Absolute Auto 0.1 X10*3/uL (0.0-0.2); Basophils Percent Auto 1.4 % (0-2); Eosinophils Absolute Auto 0.3 X10*3/uL (0.0-0.4); Hemoglobin 14.6 g/dl (14.0-18.0); Imm Gran Abs Auto 0.03 X10*3/uL (0.00-0.03); Imm Gran Pct Auto 0.4 % (0.0-0.4); Lymphocytes Absolute Auto 2.1 X10*3/uL (1.2-4.9); Lymphocytes Percent Auto 29.6 % (20-40); Mean Corpuscular HGB Conc 34.8 g/dl (31.0-36.0); Mean Corpuscular Volume 100.7 fL (80.0-98.0); Mean Platelet Volume 9.8 fL (9.4-12.4); Monocytes Absolute Auto 0.8 X10*3/uL (0.1-1.2); Monocytes Percent Auto 10.9 % (2-11); Neutrophils Absolute Auto 3.8 x10*3/uL (2.0-8.3); Neutrophils Percent Auto 53.7 % (45-73); Platelet Count 298 X10*3/uL (160-400); Red Blood Count 4.17 X10*6/uL (4.60-5.80)
--- NOTE | 2023-12-16 16:37 | MHC.EDTECH ---
Patient belongings are locked up in locker # C4 .
[2023-12-16 16:55] LABS: Alanine Aminotransferase 23 U/L (0-40); Albumin Level 4.4 g/dL (3.5-5.0); Alkaline Phosphatase 163 U/L (39-117); Anion Gap 16 (12-20); Aspartate Amino Transferase 32 U/L (5-37); Bilirubin Total 0.4 mg/dL (0.0-1.0); Blood Urea Nitrogen 14 mg/dL (9-16); Calcium 9.3 mg/dL (8.4-10.2); Carbon Dioxide 28 mmol/L (22-29); Chloride 106 mmol/L (96-108); Creatinine Clr Calc Pharmacy 116.7; Estimated Glomerular Filt Rate > 60; Ethanol 326 mg/dL; Glucose Random 104 mg/dL (60-115); Magnesium 2.1 mg/dL (1.6-2.6); Potassium 4.4 mmol/L (3.3-5.1); Sodium 146 mmol/L (135-145); Total Protein 7.1 g/dL (6.5-8.0)
[2023-12-16 17:03] LABS: Appearance Urine Clear; Color Urine Yellow; Glucose Urine UA Negative (Negative); Leukocyte Esterase Urine Negative (Negative); Nitrite Urine Negative (Negative); Specific Gravity - Urine <= 1.005 (1.005-1.025); Urine Blood Negative (Negative); Urine Ketones Negative (Negative); Urine Protein Negative (Neg-Trace)
[2023-12-16 17:13] LABS: Amphetamine Screen Urine Not Detected (Not Detect); Barbiturates, Urine POSITIVE (Not Detect); Benzodiazepines Screen Urine Not Detected (Not Detect); Buprenorphine Scr Not Detected (Not Detect); Cannabinoid Screen Urine Not Detected (Not Detect); Cocaine Screen Urine Not Detected (Not Detect); Fentanyl, urine Not Detected (Not Detect); Methadone Screen, Urine Not Detected (Not Detect); Opiate Screen Urine Not Detected (Not Detect); Oxycodone Screen Urine Not Detected (Not Detect); Phencyclidine Screen Urine Not Detected (Not Detect)
--- NOTE | 2023-12-16 17:56 | PC.NURSE ---
Patient removed IV in right AC, threw it on floor. Gauze placed on area of iv removal. Patient able to be re-directed for short periods of time , provided with food and fluids. Patient aware that if he has someone to pick him up he can go home, othewise needs to wait until he is sober. Patient stating not to call his ex she is at a wedding.
[2023-12-16 18:00] VITALS: RESP 15
--- NOTE | 2023-12-16 18:54 | PC.NURSE ---
Late charting d/t pt care. Pt comes from home for ETOH. Per EMS, pt delivery representative called PD for wellness check. Upon arrival pt tearful, yelling at staff, agitated that he is here, cussing at staff. Pt easily redirectable. 20g IV placed in right ac, pt pulled IV line out himself. Site cleaned up and dressed with gauze. Pt belongings locked in steve port. Pt still wearing pants and shoes, pockets checked for belongings that needed to be locked up, this RN okay with pt having pants and shoes. At this time pt resting quietly on stretcher, urine/labs obtained and sent to the lab. Call blount within reach, all needs met at this time.
--- NOTE | 2023-12-16 19:10 | PC.NURSE ---
Assumed care of pt. pt currently agitated with loud outbursts.
[2023-12-16 19:40] VITALS: BP 117/55; PULSE 111; RESP 18; O2SAT 96
--- NOTE | 2023-12-16 22:04 | ECG_ITS ---
Test Reason : TACARDYA Blood Pressure : / mmHG Vent. Rate : 115 BPM Atrial Rate : 000 BPM P-R Int : 000 ms QRS Dur : 086 ms QT Int : 330 ms P-R-T Axes : 000 -21 031 degrees QTc Int : 456 ms Atrial fibrillation with rapid ventricular response Low voltage QRS Cannot rule out Anteroseptal infarct (cited on or before 02-MAR-2016) Abnormal ECG When compared with ECG of 11-DEC-2023 23:36, Nonspecific T wave abnormality, improved in Inferior leads T wave inversion no longer evident in Lateral leads Referred By: Chai Victor Electronically Signed By:KOREY COTO
[2023-12-16 22:17] VITALS: BP 135/81; PULSE 130; RESP 20; TEMP 36.7; O2SAT 98
--- NOTE | 2023-12-16 22:18 | MHC.EDTECH ---
2200 rounding done ,,patient is much more calmer ,while checking pt vitals the Pct notice ,Patient heart rate was 130 ,Provider Gordo and RN Sandeep made aware ,Ekg taken and was read by Provider .Patient drank 600 ml water ,and ate 3 sandwiches ,100 ml empty from urinal .
[2023-12-16] MEDS: Digoxin 0.125 MG TABLET PO (22:59)
[2023-12-16] MEDS: dilTIAZem HCL 60 MG TABLET 120 MG PO (23:44)
[2023-12-17] MEDS: Acetaminophen 325 MG TABLET 650 MG PO (00:31)
[2023-12-17] MEDS: LORazepam 1 MG TABLET 2 MG PO (00:42)
[2023-12-17 01:14] VITALS: BP 159/94; PULSE 99; RESP 18; TEMP 37.2; O2SAT 96
--- NOTE | 2023-12-17 01:17 | MHC.EDTECH ---
This tech took over care of this patient at 0040,rounds and vitals completed,lab drawn and sent to lab.
[2023-12-17 02:14] LABS: Digoxin 0.3 ng/mL (0.8-2.0)
[2023-12-17 04:33] VITALS: BP 167/98; PULSE 97; RESP 16; TEMP 36.9; O2SAT 96
--- NOTE | 2023-12-17 04:35 | MHC.EDTECH ---
Hourly rounds and vitals completed,BP is elevated RN made aware,
[2023-12-17 06:00] VITALS: BP 141/86; PULSE 92; RESP 18; TEMP 37; O2SAT 96
--- NOTE | 2023-12-17 06:20 | PC.NURSE ---
pt awake, steady gait, ambulating to bathroom with no distress. Notified MD Hudson pt appears ready for DC.
[2023-12-17 06:30] VITALS: BP 141/86; PULSE 92; RESP 18; TEMP 37; O2SAT 96
--- NOTE | 2023-12-18 00:05 | PC.NURSE ---
Pt given 328mg Phenobarbital per MAR on 12/11 and 62mg was wasted at the bedside.
== END 2023-12-17 06:31 | disposition home or self-care (01) ==
PROVIDERS: Physician Assistant; Emergency Provider Emergency Medicine; PCP Internal Medicine
DX: F10.129 Alcohol abuse with intoxication, unspecified (principal); Y90.8 Blood alcohol level of 240 mg/100 ml or more; F32.A Depression, unspecified; R00.0 Tachycardia, unspecified; I48.20 Chronic atrial fibrillation, unspecified; Z79.01 Long term (current) use of anticoagulants; C83.00 Small cell B-cell lymphoma, unspecified site; Z79.899 Other long term (current) drug therapy
CPT/HCPCS: 36415; 70450; 80053; 80162; 80307; 81003; 83735; 85025; 93005; 99285

== ENCOUNTER 2023-12-19 13:35 | Emergency (ER) | payer MEDICARE, SELFPAY ==
[2023-12-19] VITALS (7 sets, daily range): BP systolic 119–198; BP diastolic 83–118; PULSE 78–105; RESP 14–18; TEMP 36.4–36.9; O2SAT 93–99; BMI 26.9
--- NOTE | ~2023-12-19 | XR_ITS ---
EXAMINATION: XR CHEST CLINICAL INFORMATION: Hypertensive emergency COMPARISON: CT chest and chest radiograph dated 06/01/2023 TECHNIQUE: 2 views of the chest were obtained. FINDINGS: Heart size appears smaller than previous and is normal. Previously seen right lower lobe opacity not appreciated on the current exam. No infiltrates or effusions or lung masses are seen. Compression fracture of lower thoracic vertebral body again seen and unchanged. Embolization coils in the splenic artery. XR/XR chest 2V IMPRESSION: No acute intrathoracic disease. Previously seen right lower lobe opacity not appreciated on the current exam. Electronically signed by: Rodger Baptiste MD 12/19/2023 04:51 PM EDT
--- NOTE | 2023-12-19 13:46 | ECG_ITS ---
Test Reason : HYPERTENSION Blood Pressure : / mmHG Vent. Rate : 087 BPM Atrial Rate : 000 BPM P-R Int : 000 ms QRS Dur : 088 ms QT Int : 372 ms P-R-T Axes : 000 -38 036 degrees QTc Int : 447 ms Atrial fibrillation with a competing junctional pacemaker Left axis deviation Anteroseptal infarct (cited on or before 02-MAR-2016) Abnormal ECG When compared with ECG of 16-DEC-2023 22:03, Heart rate has increased Referred By: Generic ED Physician Electronically Signed By:KOREY COTO
--- NOTE | 2023-12-19 14:57 | ED_ITS ---
HPI - General Adult General Chief complaint: Recheck/Abnormal Lab/Rx Stated complaint: HIGH BP 178/118 PER EMS Time Seen by Provider: 12/19/23 21:51 Source: patient Limitations: no limitations History of Present Illness ED Provider: Dr. Atif Barbosa HPI narrative: 68-year-old male with a history of depression, hypertension, hyperlipidemia, diabetes mellitus, alcohol use disorder, coronary disease, GERD, paroxysmal atrial fibrillation, splenic marginal zone B-cell lymphoma status post appendectomy who presents emergency department for evaluation elevated blood pressure of 180/120. Patient states that he has been drinking heavily over the last several weeks secondary to going through some bad times and going through a divorce. Patient states that while he has been drinking he has not been compliant with his medications. The patient's visiting nurse and physical therapist were concerned about his elevated blood pressure and advised him to go to the emergency department for evaluation. Patient states he has been having intermittent nausea and vomiting. He denied headache, chest pain, abdominal pain, numbness, weakness. Related Data Home Medications ?Medication ?Instructions ?Recorded ?Confirmed duloxetine 60 mg capsule,delayed 60 mg PO DAILY 12/21/19 12/12/23 release multivitamin 1 tab PO DAILY 02/27/20 12/12/23 allopurinol 100 mg tablet 200 mg PO DAILY 02/08/21 12/12/23 naltrexone 50 mg tablet 50 mg PO DAILY Alcohol Withdrawal 08/24/22 12/12/23 bupropion HCl 150 mg 24 hr tablet, 150 mg PO DAILY 06/01/23 12/12/23 extended release dulaglutide 3 mg/0.5 mL 3 mg subcut WE 06/01/23 12/12/23 subcutaneous pen injector (Trulicity) buspirone 10 mg tablet 10 mg PO BID 10/06/23 12/12/23 lisinopril 10 mg tablet 10 mg PO DAILY 12/12/23 metformin 500 mg tablet 1,000 mg PO BID 12/12/23 12/12/23 Previous Rx's ?Medication ?Instructions ?Recorded blood-glucose meter (FreeStyle #1 ea 04/23/20 Lite Meter kit) blood sugar diagnostic (FreeStyle #300 ea 02/11/21 Lite Strips) lancets 28 gauge (FreeStyle #300 ea 02/11/21 Lancets) thiamine HCl (vitamin B1) 100 mg 100 mg PO DAILY #90 tabs 07/12/22 tablet flash glucose sensor (FreeStyle #1 ea 07/14/22 Erika 14 Day Sensor kit) blood pressure test kit-medium #1 ea 08/03/22 ascorbic acid (vitamin C) 500 mg 500 mg PO DAILY #90 tabs 10/17/22 tablet (Vitamin C) folic acid 1 mg tablet 1 mg PO DAILY #90 tabs 05/17/23 dapagliflozin propanediol 10 mg 10 mg PO DAILY #90 tabs 06/15/23 tablet (Farxiga) atorvastatin 20 mg tablet 20 mg PO BEDTIME 30 days #30 tabs 08/30/23 dabigatran etexilate 150 mg 150 mg PO BID 90 days #180 caps 08/30/23 capsule (Pradaxa) digoxin 125 mcg (0.125 mg) tablet 125 mcg PO DAILY 90 days #90 caps 08/30/23 diltiazem HCl 180 mg 180 mg PO DAILY 90 days #90 caps 08/30/23 capsule,extended release 24 hr, controlled metoprolol tartrate 50 mg tablet 50 mg PO BID 90 days #180 tabs 08/30/23 commode (bedside commode) #1 ea 09/29/23 wheelchair-16 inch wide with #1 ea 09/29/23 removable footrests folic acid 1 mg tablet 1 mg PO DAILY #90 tabs 12/13/23 magnesium oxide 400 mg (241.3 mg 400 mg PO DAILY #90 tabs 12/13/23 magnesium) tablet Allergies Allergy/AdvReac Type Severity Reaction Status Date / Time vancomycin [VANCOMYCIN] Allergy Severe ANGIOEDEMA Verified 12/19/23 14:56 Sulfa (Sulfonamide Allergy Intermediate Rash Verified 12/19/23 14:56 Antibiotics) sulfamethoxazole Allergy rash Verified 12/19/23 14:56 [From Bactrim] trimethoprim [From Bactrim] Allergy Rash Verified 12/19/23 14:56 Review of Systems 2 Review of Systems: Yes all other systems are reviewed and are negative PMF Past Medical History Medical History Rosacea Annual physical exam Persistent atrial fibrillation Orthostatic hypotension Lymphoma Depression Essential hypertension Hyperlipidemia LDL goal <100 Obesity due to excess calories BMI 30.0-30.9,adult DM (diabetes mellitus) ETOH abuse BPH associated with nocturia CAD (coronary artery disease) Long-term current use of intravenous immunoglobulin (IVIG) GERD (gastroesophageal reflux disease) Hypogammaglobulinemia Diabetic eye exam Adjustment disorder PAF (paroxysmal atrial fibrillation) Gout Chronic osteomyelitis Splenic marginal zone b-cell lymphoma EMIL (obstructive sleep apnea) Surgical History Status post below-knee amputation of left lower extremity Osteomyelitis Osteomyelitis History of esophagogastroduodenoscopy (EGD) History of colonoscopy History of bunionectomy History of cardiac cath Family History Family History Father Diabetes Mother Liver cancer Maternal Grandfather CVD (cardiovascular disease) Brother Myocardial infarction Social History Social History Household Members: None Housing: House Do you presently have visiting nurse or other home services: No Alcohol intake: former Year quit: 2019 Comment: sitter in room / video Patient Tobacco Use Status: Never used Tobacco Smoked in Last 30 Days: No e-Cigarette/Vaping Use: Never Used Second Hand Smoke Exposure: No Use of substances other than those prescribed or required for medical reasons: No Advance Directives: Yes Advance Directives on File: Yes Advance Directives Date on File: 10/10/23 service: No Current occupational status: employed 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 Cognitive needs: No Hearing needs: No Vision needs: Yes Physical Exam ED Vital Signs: Vital Signs - 24 hr 12/19/23 19:50 12/19/23 21:39 12/19/23 22:25 Temperature 97.6 F 98.0 F 98.1 F Pulse Rate 105 H 99 89 Respiratory Rate 18 16 14 Blood Pressure 119/83 155/88 H 140/94 H Pulse Oximetry 93 99 98 Oxygen Delivery Method Room Air Room Air Room Air 12/19/23 22:26 Temperature 98.1 F Pulse Rate 89 Respiratory Rate 14 Blood Pressure 140/94 H Pulse Oximetry 98 Oxygen Delivery Method Room Air BMI result Body Mass Index 26.9 Vital signs did reveal initial elevated blood pressure of 198/114 with improvement of his blood pressure without treatment to 155/88. Exam: General: Awake, alert in no distress, patient is tremulous Head: Normocephalic, atraumatic EENT: PERRL, Lids normal, sclera normal, conjunctiva normal, nose normal , ears normal, throat without erythema or exudates Neck: Supple, no adenopathy Lung: breath sounds symmetric, no wheezing, rales or rhonchi Chest: symmetric movement, nontender Heart: regular rate and rhythm, normal S1, S2 no murmurs or rubs Abdomen: soft, non-tender, nondistended, normal bowel sounds Back: no vertebral tenderness, no CVAT Extremities: Left [id number] amputation, stump appears to be normal with no skin breakdown, the patient does have a small skin ulcer to the ventral aspect of his foot which does not appear to be infected, moves all extremities symmetrically Neuro: Awake, alert, oriented, normal speech, cranial nerves intact, moves all extremities symmetrically Psych: Pleasant, cooperative Course Course Course Narrative: This is a rapid medical exam performed by Shayla Cochran PA-C. The patient is a 68-year-old male with a history of poorly controlled blood pressure, ongoing alcohol abuse presents with hypertensive urgency. Patient noted his blood pressure was elevated at home when his visiting nurse came to attend to him. On exam, patient is tremulous, appears anxious, however is currently alert and oriented x3. He is tachycardic, hypertensive, I am also concerned for alcohol withdrawal. His last drink was yesterday, he denies prior seizure activity. We will be screening alcohol, basic labs, urinalysis, troponin assessing for end-organ damage, also obtaining a chest x-ray and EKG. 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 Patient states that he drinking alcohol and has been noncompliant with his medications. He was review of systems was unremarkable. Initial blood pressure was elevated but repeat blood pressures improved without treatment. Differential diagnosis: ?Includes but is not limited to essential hypertension, hypertensive urgency/emergency, medical noncompliance, electrolyte abnormalities, anemia Course: 22:19 My interpretation patient's laboratory evaluation as follows: CBC was normal. Glucose elevated 135. Electrolytes, BUN creatinine were normal. LFTs were normal except for an elevated alk-phos of 169. Initial and repeat troponin were 8.6 and 9.4 which is reassuring. Alcohol level was below detectable limits. This time I believe the patient's elevated blood pressures secondary to essential hypertension and noncompliance with his medication regimen secondary to his alcohol use disorder. I did discuss this with the patient patient and he states that he was going to take his medications as prescribed. He was also going to follow-up with AA and his s AA sponsor to try to get help with his alcohol use disorder. Patient was anxious and tremulous and he was given Ativan 2 mg orally. Patient was given printed and verbal instructions and discharged home. Admission/Observation Consideration of admission/observation: Escalation of care including admission/observation considered (Yes) Lab Data [facility] Lab Attestation statement: I reviewed the patient's lab results. 12/19/23 15:10 12/19/23 15:10 Labs: Lab Results 12/19/23 12/19/23 Range/Units 15:10 21:14 WBC 7.2 (4.8-10.8) X10*3/uL RBC 4.20 L (4.60-5.80) X10*6/uL Hgb 14.7 (14.0-18.0) g/dl Hct 40.6 L (42.0-52.0) % MCV 96.7 (80.0-98.0) fL MCH 35.0 H (27.0-33.0) pg MCHC 36.2 H (31.0-36.0) g/dl RDW 16.9 H (11.0-16.0) % Plt Count 302 (160-400) X10*3/uL MPV 9.7 (9.4-12.4) fL Immature Gran % (Auto) 0.3 (0.0-0.4) % Neut % (Auto) 68.7 (45-73) % Lymph % (Auto) 17.1 L (20-40) % Whitley % (Auto) 11.5 H (2-11) % Eos % (Auto) 1.0 (0-4) % Baso % (Auto) 1.4 (0-2) % Lymph # (Auto) 1.2 (1.2-4.9) X10*3/uL Whitley # (Auto) 0.8 (0.1-1.2) X10*3/uL Eos # (Auto) 0.1 (0.0-0.4) X10*3/uL Baso # (Auto) 0.1 (0.0-0.2) X10*3/uL Abs Immat Gran (auto) 0.02 (0.00-0.03) X10*3/uL Absolute Neuts (auto) 5.0 (2.0-8.3) x10*3/uL Absolute Nucleated RBC 0.000 (0.0-0.012) X10*3/uL Nucleated RBC % (auto) 0.0 (0.0-0.2) /100WBC Sodium 139 (135-145) mmol/L Potassium 4.6 (3.3-5.1) mmol/L Chloride 99 (96-108) mmol/L Carbon Dioxide 28 (22-29) mmol/L Anion Gap 17 (12-20) BUN 12 (9-16) mg/dL Creatinine 0.80 (0.5-1.4) mg/dL Estim Creat Clear Calc 105.6 Estimated GFR > 60 Random Glucose 135 H (60-115) mg/dL Calcium 9.9 D (8.4-10.2) mg/dL Magnesium 1.6 (1.6-2.6) mg/dL Total Bilirubin 1.1 H (0.0-1.0) mg/dL AST 27 (5-37) U/L ALT 21 (0-40) U/L Alkaline Phosphatase 169 H (39-117) U/L Troponin I High Sens 8.6 9.4 (<3.5-35.0) ng/L Total Protein 7.1 (6.5-8.0) g/dL Albumin 4.5 (3.5-5.0) g/dL Ethyl Alcohol < 10 mg/dL Independent Interpretation I performed an independent interpretation of an: EKG Interpretation: My independent interpretation the patient's 12 EKG done at 14:58 hours is as follows: Atrial fibrillation with a rate of 87, normal QRS duration QTC interval, no ST segment elevation, no ST segment depression, Q-waves in lead 3 and AVF, no significant T-wave abnormalities Chronic Conditions Patient?s care impacted by: Hypertension and Other (Alcohol use disorder) Discharge Plan Discharge Clinical Impression: Essential (primary) hypertension, Alcohol use disorder, Medically noncompliant Patient Disposition: Home, Self-Care Additional Instructions: Your blood work was unremarkable. Your liver tests and kidney function were normal. Your elevated blood pressures related to your alcohol use disorder and to your noncompliance with your blood pressure medications You should take your medications as prescribed. You need to stop drinking alcohol, if you continue to drink heavily you will damage your liver and developed cirrhosis. Continue with your AA meetings Follow-up with your doctor in 2 days. Please return to the emergency department if your symptoms get worse or if you develop any symptoms that are concerning to you. Prescriptions: No Action (DME) blood-glucose meter [FreeStyle Lite Meter] Kit See Rx Instructions .ROUTE .MEDSUPPLY Qty: 1 0RF Rx Instructions: As directed 3x/day (DME) FreeStyle Lite Strips Strip See Rx Instructions .Route Qty: 300 3RF Rx Instructions: Test blood sugar TID (DME) lancets [FreeStyle Lancets] 28 gauge misc See Rx Instructions .Route Qty: 300 3RF Rx Instructions: Test blood sugar TID thiamine HCl (vitamin B1) 100 mg tablet 100 mg PO DAILY Qty: 90 3RF (DME) blood pressure test kit-medium Kit See Rx Instructions .Route Qty: 1 0RF Rx Instructions: As directed to monitor BP at home ascorbic acid (vitamin C) [Vitamin C] 500 mg tablet 500 mg PO DAILY Qty: 90 3RF folic acid 1 mg tablet 1 mg PO DAILY Qty: 90 3RF Farxiga 10 mg tablet 10 mg PO DAILY Qty: 90 1RF dabigatran etexilate [Pradaxa] 150 mg capsule 150 mg PO BID 90 Days Qty: 180 3RF metoprolol tartrate 50 mg tablet 50 mg PO BID 90 Days Qty: 180 3RF digoxin 125 mcg (0.125 mg) tablet 125 mcg PO DAILY 90 Days Qty: 90 3RF diltiazem HCl 180 mg capsule,ext.rel 24h degradable 180 mg PO DAILY 90 Days Qty: 90 3RF atorvastatin 20 mg tablet 20 mg PO BEDTIME 30 Days Qty: 30 3RF (DME) bedside commode Kit See Rx Instructions .Route Qty: 1 0RF Rx Instructions: As directed (DME) wheelchair-16 inch wide with removable footrests 16 inch wide See Rx Instructions .Route .MEDSUPPLY Qty: 1 0RF Rx Instructions: As directed buspirone 10 mg Tablet 10 mg PO BID bupropion HCl 150 mg tablet extended release 24 hr 150 mg PO DAILY Trulicity 3 mg/0.5 mL pen injector 3 mg subcut WE metformin 500 mg tablet 1,000 mg PO BID lisinopril 10 mg tablet 10 mg PO DAILY magnesium oxide 400 mg (241.3 mg magnesium) Tablet 400 mg PO DAILY Qty: 90 0RF folic acid 1 mg Tablet 1 mg PO DAILY Qty: 90 0RF allopurinol 100 mg tablet 200 mg PO DAILY (DME) FreeStyle Erika 14 Day Sensor Kit See Rx Instructions .Route Qty: 1 4RF Rx Instructions: As directed multivitamin Tablet 1 tab PO DAILY duloxetine 60 mg capsule,delayed release(DR/EC) 60 mg PO DAILY naltrexone 50 mg tablet 50 mg PO DAILY Interventions: ED Discharge Assessment Last Done: 12/19/23 22:26 Discharge Date/Time: 12/19/23 22:28 Print Language: Gabonese
[2023-12-19 15:14] LABS: MANUAL DIFF FLAG NO
[2023-12-19 15:15] LABS: Basophils Absolute Auto 0.1 X10*3/uL (0.0-0.2); Basophils Percent Auto 1.4 % (0-2); Eosinophils Absolute Auto 0.1 X10*3/uL (0.0-0.4); Hematocrit 40.6 % (42.0-52.0); Hemoglobin 14.7 g/dl (14.0-18.0); Imm Gran Abs Auto 0.02 X10*3/uL (0.00-0.03); Imm Gran Pct Auto 0.3 % (0.0-0.4); Lymphocytes Absolute Auto 1.2 X10*3/uL (1.2-4.9); Lymphocytes Percent Auto 17.1 % (20-40); Mean Corpuscular HGB Conc 36.2 g/dl (31.0-36.0); Mean Corpuscular Volume 96.7 fL (80.0-98.0); Mean Platelet Volume 9.7 fL (9.4-12.4); Monocytes Absolute Auto 0.8 X10*3/uL (0.1-1.2); Monocytes Percent Auto 11.5 % (2-11); Neutrophils Percent Auto 68.7 % (45-73); Platelet Count 302 X10*3/uL (160-400); Red Cell Distribution Width 16.9 % (11.0-16.0); White Blood Count 7.2 X10*3/uL (4.8-10.8)
[2023-12-19 15:41] LABS: Alanine Aminotransferase 21 U/L (0-40); Albumin Level 4.5 g/dL (3.5-5.0); Alkaline Phosphatase 169 U/L (39-117); Anion Gap 17 (12-20); Aspartate Amino Transferase 27 U/L (5-37); Bilirubin Total 1.1 mg/dL (0.0-1.0); Blood Urea Nitrogen 12 mg/dL (9-16); Calcium 9.9 mg/dL (8.4-10.2); Carbon Dioxide 28 mmol/L (22-29); Chloride 99 mmol/L (96-108); Creatinine Clr Calc Pharmacy 105.6; Estimated Glomerular Filt Rate > 60; Ethanol < 10 mg/dL; Glucose Random 135 mg/dL (60-115); Magnesium 1.6 mg/dL (1.6-2.6); Potassium 4.6 mmol/L (3.3-5.1); Sodium 139 mmol/L (135-145); Total Protein 7.1 g/dL (6.5-8.0)
[2023-12-19 15:42] LABS: Troponin-I High Sensitivity 8.6 ng/L (<3.5-35.0)
[2023-12-19 21:51] LABS: Troponin-I High Sensitivity 9.4 ng/L (<3.5-35.0)
[2023-12-19] MEDS: LORazepam 1 MG TABLET 2 MG PO (22:22)
== END 2023-12-19 22:28 | disposition home or self-care (01) ==
PROVIDERS: Physician Assistant Medical; Emergency Provider Emergency Medicine Emergency Medical Services; PCP Internal Medicine
DX: F10.10 Alcohol abuse, uncomplicated (principal); Y90.0 Blood alcohol level of less than 20 mg/100 ml; R94.31 Abnormal electrocardiogram [ECG] [EKG]; I10 Essential (primary) hypertension; Z91.148 Patient's other noncompliance with medication regimen for other reason; Z79.899 Other long term (current) drug therapy; Z51.81 Encounter for therapeutic drug level monitoring
CPT/HCPCS: 36415; 71046; 80053; 80307; 83735; 84484; 85025; 93005; 99283; 99284

== ENCOUNTER 2024-02-12 14:36 | Emergency (ER) | payer MEDICARE, SELFPAY ==
--- NOTE | ~2024-02-12 | XR_ITS ---
EXAMINATION: XR KNEE, LEFT CLINICAL INFORMATION: infection of stump, osteo COMPARISON: Left knee radiographs dated 03/02/2016. TECHNIQUE: Two views of the left knee. FINDINGS / XR/XR knee LT 2V IMPRESSION: The left tibia and fibula are partially amputated. The soft tissue overlying the stump is swollen and appears edematous. There is no periosteal reaction/thickening of the adjacent tibia or fibula to indicate acute osteomyelitis. The left knee joint is intact. There is no suprapatellar joint effusion. There are vascular calcifications. Electronically signed by: Jimmy Su DO 02/12/2024 10:09 PM [facility]
[2024-02-12 14:43] VITALS: BP 164/100; PULSE 74
[2024-02-12 14:48] VITALS: BP 118/89; PULSE 110; RESP 18; O2SAT 98; BMI 25.0
[2024-02-12 14:56] VITALS: TEMP 36.4
--- NOTE | 2024-02-12 14:58 | PC.NURSE ---
Pt presents to ED via EMS from home, EMS reports visiting RN called because pt was heavily drinking and not taking his meds, depressed. Pt reports depression and SI (no plan, just makes statements about wanting to end his life). Not taking meds for many months, recently had significant life stressor of divorce from his of 40 years. Reports he drank approx 1.75 liter of hard liquor today, not a daily drinker, no drug use. Denies HI. Crying and wants help. Pt is BKA on left side, has significant diabetic open leaking wounds (being cared for at home by visiting RN). Alert and oriented, breathing even and unlabored. Reports chronic left shoulder pain.
--- NOTE | 2024-02-12 15:11 | PC.NURSE ---
Pt changed over by security into safety clothing, belongings secured by security in C4 (closet near pod). Pt is crying, 1:1 sitter. Noted to have open wounds on right foot and left stump, leaking.
[2024-02-12 16:23] LABS: MANUAL DIFF FLAG NO
[2024-02-12 16:27] LABS: Basophils Absolute Auto 0.1 X10*3/uL (0.0-0.2); Eosinophils Absolute Auto 0.2 X10*3/uL (0.0-0.4); Eosinophils Percent Auto 1.7 % (0-4); Hematocrit 44.2 % (42.0-52.0); Hemoglobin 15.3 g/dl (14.0-18.0); Imm Gran Abs Auto 0.01 X10*3/uL (0.00-0.03); Imm Gran Pct Auto 0.1 % (0.0-0.4); Lymphocytes Absolute Auto 1.8 X10*3/uL (1.2-4.9); Lymphocytes Percent Auto 18.6 % (20-40); Mean Corpuscular HGB Conc 34.6 g/dl (31.0-36.0); Mean Corpuscular Hemoglobin 34.6 pg (27.0-33.0); Mean Platelet Volume 10.1 fL (9.4-12.4); Monocytes Absolute Auto 0.6 X10*3/uL (0.1-1.2); Monocytes Percent Auto 6.7 % (2-11); Neutrophils Absolute Auto 6.8 x10*3/uL (2.0-8.3); Neutrophils Percent Auto 71.9 % (45-73); Platelet Count 264 X10*3/uL (160-400); Red Blood Count 4.42 X10*6/uL (4.60-5.80); Red Cell Distribution Width 14.1 % (11.0-16.0); White Blood Count 9.4 X10*3/uL (4.8-10.8)
[2024-02-12 16:47] LABS: Salicylate < 5.0 mg/dL (15-30)
[2024-02-12 16:49] LABS: Alanine Aminotransferase 17 U/L (0-40); Alkaline Phosphatase 151 U/L (39-117); Anion Gap 19 (12-20); Aspartate Amino Transferase 36 U/L (5-37); Bilirubin Total 0.6 mg/dL (0.0-1.0); Blood Urea Nitrogen 12 mg/dL (9-16); Calcium 8.5 mg/dL (8.4-10.2); Carbon Dioxide 26 mmol/L (22-29); Chloride 106 mmol/L (96-108); Creatinine Clr Calc Pharmacy 115.7; Estimated Glomerular Filt Rate > 60; Ethanol 284 mg/dL; Glucose Random 52 mg/dL (60-115); Potassium 3.7 mmol/L (3.3-5.1); Sodium 147 mmol/L (135-145); Total Protein 6.3 g/dL (6.5-8.0)
[2024-02-12] MEDS: Dextrose 50 % 25 GM/50 ML SYRINGE IVPUSH (17:14)
--- NOTE | 2024-02-12 17:14 | PC.NURSE ---
Provider placed US guided line, medicated per MAR due to low BGL. Pt remained alert and oriented.
[2024-02-12 17:25] LABS: Magnesium 1.6 mg/dL (1.6-2.6)
[2024-02-12 17:40] LABS: Glucose, Whole Blood 62 mg/dL (60-115)
[2024-02-12] MEDS: Magnesium Sulfate/H2O 2 GM/50 ML PIGGYBACK IV (17:45)
[2024-02-12 18:00] VITALS: BP 180/108; PULSE 88; RESP 16; TEMP 36.6; O2SAT 98
[2024-02-12 18:07] LABS: Glucose, Whole Blood 82 mg/dL (60-115)
[2024-02-12 18:56] LABS: Erythrocyte Sedimentation Rate 7 MM/HR (0-15)
[2024-02-12 18:59] LABS: Appearance Urine Clear; Color Urine Yellow; Glucose Urine UA 250 mg/dL (Negative); Leukocyte Esterase Urine Negative (Negative); Nitrite Urine Negative (Negative); PH 5.5 (5.0-9.0); Specific Gravity - Urine 1.015 (1.005-1.025); Urine Blood Negative (Negative); Urine Ketones Trace mg/dL (Negative); Urine Protein Negative (Neg-Trace)
[2024-02-12 19:01] LABS: Bacteria Urine None Seen (None Seen); Hyaline Casts Urine 0-2 /LPF (0-2); RBC Urine 0-2 /HPF (0-2); Squamous Epithelial Cell Urine 0-2 /HPF (0-2); WBC Urine 0-5 /HPF (0-5)
[2024-02-12 19:09] LABS: Amphetamine Screen Urine Not Detected (Not Detect); Barbiturates, Urine Not Detected (Not Detect); Benzodiazepines Screen Urine Not Detected (Not Detect); Buprenorphine Scr Not Detected (Not Detect); Cannabinoid Screen Urine Not Detected (Not Detect); Cocaine Screen Urine Not Detected (Not Detect); Fentanyl, urine Not Detected (Not Detect); Methadone Screen, Urine Not Detected (Not Detect); Opiate Screen Urine Not Detected (Not Detect); Oxycodone Screen Urine Not Detected (Not Detect); Phencyclidine Screen Urine Not Detected (Not Detect)
[2024-02-12 20:05] VITALS: BP 154/85; PULSE 125
[2024-02-12] MEDS: PHENobarbitaL 30 MG TABLET 260 MG PO (20:05)
[2024-02-12] MEDS: Metoprolol Tartrate 50 MG TABLET PO (20:05)
[2024-02-12 20:06] VITALS: BP 154/85; PULSE 125
[2024-02-12] MEDS: dilTIAZem HCL CD 180 MG CAP.ER.24H PO (20:06)
[2024-02-12] MEDS: lisinopriL 10 MG TABLET PO (20:06)
--- NOTE | 2024-02-12 23:18 | MHC.EDTECH ---
this tech assumed care of pt at 2300, when rounding the pt was witnessed to be sitting up in stretcher speaking with the bottle house pumper assigned to him. He appeared to be in no apparent distress and had no needs at this time.
[2024-02-13 00:48] VITALS: BP 108/58; PULSE 84; RESP 17; TEMP 36.6; O2SAT 97
[2024-02-13] MEDS: traZODone HCL 100 MG TABLET PO (01:59)
--- NOTE | 2024-02-13 02:08 | ED.PSYCH ---
HPI - Psych General Chief Complaint: Psychiatric Symptoms Stated Complaint: ETOH/ non med compliant. Agitated/ Cooperative Time Seen by Provider: 02/12/24 16:27 Source: patient Limitations: no limitations History of Present Illness ED Provider: Shayla Cochran PA-C HPI Narrative: 68-year-old male with a history of alcohol abuse, peripheral vascular disease, diabetes, chronic diabetic right foot ulcer, hypertension, hyperlipidemia, Afib presents with vague SI. Patient has VNA services to the home to assess his chronic wounds, he was verbalizing thoughts of vague SI and indicating that he has been increasingly depressed. Patient states that his of 40 years is about to divorce him. Patient continues to consume alcohol, he says he drinks ?a bottle of hard liquor daily?. Patient states he does have a pyridine recovery operator and attends AA meetings. Related Data Home Medications ?Medication ?Instructions ?Recorded ?Confirmed duloxetine 60 mg capsule,delayed 60 mg PO DAILY 12/21/19 12/12/23 release multivitamin 1 tab PO DAILY 02/27/20 12/12/23 allopurinol 100 mg tablet 200 mg PO DAILY 02/08/21 12/12/23 naltrexone 50 mg tablet 50 mg PO DAILY Alcohol Withdrawal 08/24/22 12/12/23 bupropion HCl 150 mg 24 hr tablet, 150 mg PO DAILY 06/01/23 12/12/23 extended release dulaglutide 3 mg/0.5 mL 3 mg subcut WE 06/01/23 12/12/23 subcutaneous pen injector (Trulicity) buspirone 10 mg tablet 10 mg PO BID 10/06/23 12/12/23 lisinopril 10 mg tablet 10 mg PO DAILY 12/12/23 metformin 500 mg tablet 1,000 mg PO BID 12/12/23 12/12/23 Previous Rx's ?Medication ?Instructions ?Recorded blood-glucose meter (FreeStyle #1 ea 04/23/20 Lite Meter kit) blood sugar diagnostic (FreeStyle #300 ea 02/11/21 Lite Strips) lancets 28 gauge (FreeStyle #300 ea 02/11/21 Lancets) thiamine HCl (vitamin B1) 100 mg 100 mg PO DAILY #90 tabs 07/12/22 tablet flash glucose sensor (FreeStyle #1 ea 07/14/22 Erika 14 Day Sensor kit) blood pressure test kit-medium #1 ea 08/03/22 ascorbic acid (vitamin C) 500 mg 500 mg PO DAILY #90 tabs 10/17/22 tablet (Vitamin C) folic acid 1 mg tablet 1 mg PO DAILY #90 tabs 05/17/23 dapagliflozin propanediol 10 mg 10 mg PO DAILY #90 tabs 06/15/23 tablet (Farxiga) atorvastatin 20 mg tablet 20 mg PO BEDTIME 30 days #30 tabs 08/30/23 dabigatran etexilate 150 mg 150 mg PO BID 90 days #180 caps 08/30/23 capsule (Pradaxa) digoxin 125 mcg (0.125 mg) tablet 125 mcg PO DAILY 90 days #90 caps 08/30/23 diltiazem HCl 180 mg 180 mg PO DAILY 90 days #90 caps 08/30/23 capsule,extended release 24 hr, controlled metoprolol tartrate 50 mg tablet 50 mg PO BID 90 days #180 tabs 08/30/23 commode (bedside commode) #1 ea 09/29/23 wheelchair-16 inch wide with #1 ea 09/29/23 removable footrests magnesium oxide 400 mg (241.3 mg 400 mg PO DAILY #90 tabs 12/13/23 magnesium) tablet Allergies Allergy/AdvReac Type Severity Reaction Status Date / Time vancomycin [VANCOMYCIN] Allergy Severe ANGIOEDEMA Verified 02/12/24 14:50 Sulfa (Sulfonamide Allergy Intermediate Rash Verified 12/19/23 14:56 Antibiotics) sulfamethoxazole Allergy rash Verified 12/19/23 14:56 [From Bactrim] trimethoprim [From Bactrim] Allergy Rash Verified 12/19/23 14:56 Review of Systems Review of Systems: Yes all other systems are reviewed and are negative Constitutional: Constitutional: Denies fatigue and Denies fever(s) Cardiovascular: Cardiovascular: Denies chest pain and Denies dyspnea Respiratory: Respiratory: Denies dyspnea Gastrointestinal: Gastrointestinal: Denies abdominal pain, Denies nausea and Denies vomiting Endocrine: Endocrine: Denies fatigue PMFSH Past Medical History Attestation statement: The following information was validated with the patient. Medical History Rosacea Annual physical exam Persistent atrial fibrillation Orthostatic hypotension Lymphoma Depression Essential hypertension Hyperlipidemia LDL goal <100 Obesity due to excess calories BMI 30.0-30.9,adult DM (diabetes mellitus) ETOH abuse BPH associated with nocturia CAD (coronary artery disease) Long-term current use of intravenous immunoglobulin (IVIG) GERD (gastroesophageal reflux disease) Hypogammaglobulinemia Diabetic eye exam Adjustment disorder PAF (paroxysmal atrial fibrillation) Gout Chronic osteomyelitis Splenic marginal zone b-cell lymphoma EMIL (obstructive sleep apnea) Surgical History Status post below-knee amputation of left lower extremity Osteomyelitis Osteomyelitis History of esophagogastroduodenoscopy (EGD) History of colonoscopy History of bunionectomy History of cardiac cath Family History Family History Father Diabetes Mother Liver cancer Maternal Grandfather CVD (cardiovascular disease) Brother Myocardial infarction Social History Social History Household Members: None Housing: House Do you presently have visiting nurse or other home services: No Alcohol intake: current Alcohol intake frequency: 3 or more drinks per day Alcohol type: hard liquor Comment: sitter in room / video Patient Tobacco Use Status: Never used Tobacco Smoked in Last 30 Days: No e-Cigarette/Vaping Use: Never Used Second Hand Smoke Exposure: No Use of substances other than those prescribed or required for medical reasons: No Advance Directives: Yes Advance Directives on File: Yes Advance Directives Date on File: 10/10/23 service: No Current occupational status: employed 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 Cognitive needs: No Hearing needs: No Vision needs: Yes Physical Exam Vital Signs: Vital Signs: Last Vital Signs Temp 98.5 F 02/13/24 02:30 Pulse 98 02/13/24 02:30 Resp 17 02/13/24 02:30 BP 129/78 02/13/24 02:30 Pulse Ox 97 02/13/24 02:30 O2 Del Method Room Air 02/13/24 02:30 BMI result Body Mass Index 25.0 Const: Other: Awake, disheveled, smells of cat urine Orientation/consciousness: patient oriented x3 Resp: Other: Nonlabored respirations Cardio: Other: Normal peripheral perfusion Skin: Other: Warm dry no rash Neuro: General: patient oriented x3, no focal motor deficits and CN's II-XI intact bilaterally Extrem: Other: Chronic small diabetic ulcer over the dorsum of the right foot, no overlying erythema warmth or drainage from the site. The patient is status post left BKA, there is a superficial ulceration with the abrasion noted over the stump pump, mildly erythematous and warm, no purulence from the site, Psych: Other: Cooperative, emotionally labile, tearful at times Course Reevaluation(s) Reevaluation #1: 02/13/2024 0843 --> Observation continues. Patient awaiting CARE team evaluation. Reevaluation #2: observation care revealed that the patient does NOT meet psychiatric necessity for hospitalization. final disposition discussed with the patient. The patient completed observation care at 1043am. cleared by CARE team. BS has remained stable Medications Administered Discontinued Medications Generic Name Dose Route Start Last Admin Trade Name Freq PRN Reason Stop Dose Admin Acetaminophen 975 mg 02/13/24 03:35 02/13/24 03:43 Acetaminophen 325 Mg Tablet PO 02/13/24 03:36 975 mg ONCE ONE Administration Dextrose 25 gm 02/12/24 16:49 02/12/24 17:13 Dextrose 25 % 2.5 Gm/10 Ml Syringe IVPUSH 02/12/24 16:50 Not Given ONCE ONE Dextrose 25 gm 02/12/24 17:00 02/12/24 17:14 Dextrose 50 % 25 Gm/50 Ml Syringe IVPUSH 02/12/24 17:01 25 gm ONCE ONE Administration Diltiazem HCl 180 mg 02/12/24 19:42 02/12/24 20:06 Diltiazem Hcl Cd 180 Mg Cap.Er.24h PO 02/12/24 19:43 180 mg ONCE ONE Administration Protocol Magnesium Sulfate 2 gm in 50 mls @ 25 mls/hr 02/12/24 17:38 02/12/24 21:52 Magnesium Sulfate/H2o IV 02/12/24 19:37 Infused ONCE ONE Infusion Lisinopril 10 mg 02/12/24 19:42 02/12/24 20:06 Lisinopril 10 Mg Tablet PO 02/12/24 19:43 10 mg ONCE ONE Administration Protocol Metoprolol Tartrate 50 mg 02/12/24 19:42 02/12/24 20:05 Metoprolol Tartrate 50 Mg Tablet PO 02/12/24 19:43 50 mg ONCE ONE Administration Protocol Phenobarbital 260 mg 02/12/24 19:39 02/12/24 20:05 Phenobarbital 30 Mg Tablet PO 02/12/24 19:40 260 mg ONCE ONE Administration Trazodone HCl 100 mg 02/13/24 01:36 02/13/24 01:59 Trazodone Hcl 100 Mg Tablet PO 02/13/24 01:37 100 mg ONCE ONE Administration Medical Decision Making Medical Decision Making MDM Narrative: 68-year-old male with a history of alcohol abuse, peripheral vascular disease, diabetes, chronic diabetic right foot ulcer, hypertension, hyperlipidemia, Afib presents with vague SI. Patient has VNA services to the home to assess his chronic wounds, he was verbalizing thoughts of vague SI and indicating that he has been increasingly depressed. Patient states that his of 40 years is about to divorce him. Patient continues to consume alcohol, he says he drinks ?a bottle of hard liquor daily?. Patient states he does have a pyridine recovery operator and attends AA meetings. Problem: Alcohol abuse, diabetes, peripheral vascular disease History: Per patient I have considered the following differential diagnoses: SI, HI, decompensated psychiatric illness, drug/alcohol intoxication, alcohol withdrawal, osteomyelitis, cellulitis, purulent cellulitis Plan: The patient will referred to the care team if he can be medically cleared. We will be screening basic labs, serum ethanol, U tox. The patient is hypertensive, he admits that he has not been taking his medications as directed, we will order his meds. Also empirically loading with 260 mg of p.o. phenobarb. CIWA scale ordered In regard to the wound, I will obtain imaging to make sure there was no osteo, I have low suspicion at this time for active infection. Screening labs were already in process, we will add on inflammatory markers. I have independently reviewed the following tests: Labs: No leukocytosis, not anemic, no electrolyte abnormality, sugar was 52, giving 25 g of Dex will offer the patient food X-ray left stump: XR/XR knee LT 2V IMPRESSION: The left tibia and fibula are partially amputated. The soft tissue overlying the stump is swollen and appears edematous. There is no periosteal reaction/thickening of the adjacent tibia or fibula to indicate acute osteomyelitis. The left knee joint is intact. There is no suprapatellar joint effusion. There are vascular calcifications. Electronically signed by: Jimmy Su DO 02/12/2024 10:09 PM [facility] [place] Data 02/12/24 16:20 02/12/24 16:20 Labs: Lab Results 02/12/24 02/12/24 02/12/24 Range/Units 16:19 16:20 17:35 WBC 9.4 (4.8-10.8) X10*3/uL RBC 4.42 L (4.60-5.80) X10*6/uL Hgb 15.3 (14.0-18.0) g/dl Hct 44.2 (42.0-52.0) % MCV 100.0 H (80.0-98.0) fL MCH 34.6 H (27.0-33.0) pg MCHC 34.6 (31.0-36.0) g/dl RDW 14.1 (11.0-16.0) % Plt Count 264 (160-400) X10*3/uL MPV 10.1 (9.4-12.4) fL Immature Gran % (Auto) 0.1 (0.0-0.4) % Neut % (Auto) 71.9 (45-73) % Lymph % (Auto) 18.6 L (20-40) % Duc[place]ne % (Auto) 6.7 (2-11) % Eos % (Auto) 1.7 (0-4) % Baso % (Auto) 1.0 (0-2) % Lymph # (Auto) 1.8 (1.2-4.9) X10*3/uL [place]ne # (Auto) 0.6 (0.1-1.2) X10*3/uL Eos # (Auto) 0.2 (0.0-0.4) X10*3/uL Baso # (Auto) 0.1 (0.0-0.2) X10*3/uL Abs Immat Gran (auto) 0.01 (0.00-0.03) X10*3/uL Absolute Neuts (auto) 6.8 (2.0-8.3) x10*3/uL Absolute Nucleated RBC 0.000 (0.0-0.012) X10*3/uL Nucleated RBC % (auto) 0.0 (0.0-0.2) /100WBC ESR 7 (0-15) MM/HR Sodium 147 H (135-145) mmol/L Potassium 3.7 (3.3-5.1) mmol/L Chloride 106 (96-108) mmol/L Carbon Dioxide 26 (22-29) mmol/L Anion Gap 19 (12-20) BUN 12 (9-16) mg/dL Creatinine 0.73 (0.5-1.4) mg/dL Estim Creat Clear Calc 115.7 Estimated GFR > 60 POC Glucose 62 (60-115) mg/dL Random Glucose 52 L* (60-115) mg/dL Calcium 8.5 D (8.4-10.2) mg/dL Magnesium 1.6 (1.6-2.6) mg/dL Total Bilirubin 0.6 (0.0-1.0) mg/dL AST 36 (5-37) U/L ALT 17 (0-40) U/L Alkaline Phosphatase 151 H (39-117) U/L Total Protein 6.3 L (6.5-8.0) g/dL Albumin 4.0 (3.5-5.0) g/dL Urine Color Urine Appearance Urine pH (5.0-9.0) Ur Specific Bea[place] (1.005-1.025) Urine Protein (Neg-Trace) mg/dL Urine Glucose (UA) (Negative) mg/dL Urine Ketones (Negative) mg/dL Urine Blood (Negative) Urine Nitrite (Negative) Ur Leukocyte Esterase (Negative) Urine RBC (0-2) /HPF Urine WBC (0-5) /HPF Ur Squamous Epith Cells (0-2) /HPF Urine Bacteria (None Seen) Hyaline Casts (0-2) /LPF Salicylates < 5.0 L (15-30) mg/dL Urine Opiates Screen (Not Detect) Ur Buprenorphine Scrn (Not Detect) ng/mL Ur Oxycodone Screen (Not Detect) ng/mL Urine Methadone Screen (Not Detect) ng/mL Urine Fentanyl Screen (Not Detect) Ur Barbiturates Screen (Not Detect) Ur Phencyclidine Scrn (Not Detect) Ur Amphetamines Screen (Not Detect) U Benzodiazepines Scrn (Not Detect) Urine Cocaine Screen (Not Detect) U Marijuana (THC) Screen (Not Detect) Ethyl Alcohol 284 mg/dL 02/12/24 02/12/24 02/13/24 Range/Units 18:01 18:51 02:54 WBC (4.8-10.8) X10*3/uL RBC (4.60-5.80) X10*6/uL Hgb (14.0-18.0) g/dl Hct (42.0-52.0) % MCV (80.0-98.0) fL MCH (27.0-33.0) pg MCHC (31.0-36.0) g/dl RDW (11.0-16.0) % Plt Count (160-400) X10*3/uL MPV (9.4-12.4) fL Immature Gran % (Auto) (0.0-0.4) % Neut % (Auto) (45-73) % Lymph % (Auto) (20-40) % Duchesne % (Auto) (2-11) % Eos % (Auto) (0-4) % Baso % (Auto) (0-2) % Lymph # (Auto) (1.2-4.9) X10*3/uL Duc[place]ne # (Auto) (0.1-1.2) X10*3/uL Eos # (Auto) (0.0-0.4) X10*3/uL Baso # (Auto) (0.0-0.2) X10*3/uL Abs Immat Gran (auto) (0.00-0.03) X10*3/uL Absolute Neuts (auto) (2.0-8.3) x10*3/uL Absolute Nucleated RBC (0.0-0.012) X10*3/uL Nucleated RBC % (auto) (0.0-0.2) /100WBC ESR (0-15) MM/HR Sodium (135-145) mmol/L Potassium (3.3-5.1) mmol/L Chloride (96-108) mmol/L Carbon Dioxide (22-29) mmol/L Anion Gap (12-20) BUN (9-16) mg/dL Creatinine (0.5-1.4) mg/dL Estim Creat Clear Calc Estimated GFR POC Glucose 82 154 H (60-115) mg/dL Random Glucose (60-115) mg/dL Calcium (8.4-10.2) mg/dL Magnesium (1.6-2.6) mg/dL Total Bilirubin (0.0-1.0) mg/dL AST (5-37) U/L ALT (0-40) U/L Alkaline Phosphatase (39-117) U/L Total Protein (6.5-8.0) g/dL Albumin (3.5-5.0) g/dL Urine Color Yellow Urine Appearance Clear Urine pH 5.5 (5.0-9.0) Ur Specific [place] 1.015 (1.005-1.025) Urine Protein Negative (Neg-Trace) mg/dL Urine Glucose (UA) 250 H (Negative) mg/dL Urine Ketones Trace (Negative) mg/dL Urine Blood Negative (Negative) Urine Nitrite Negative (Negative) Ur Leukocyte Esterase Negative (Negative) Urine RBC 0-2 (0-2) /HPF Urine WBC 0-5 (0-5) /HPF Ur Squamous Epith Cells 0-2 (0-2) /HPF Urine Bacteria None Seen (None Seen) Hyaline Casts 0-2 (0-2) /LPF Salicylates (15-30) mg/dL Urine Opiates Screen Not Detected (Not Detect) Ur Buprenorphine Scrn Not Detected (Not Detect) ng/mL Ur Oxycodone Screen Not Detected (Not Detect) ng/mL Urine Methadone Screen Not Detected (Not Detect) ng/mL Urine Fentanyl Screen Not Detected (Not Detect) Ur Barbiturates Screen Not Detected (Not Detect) Ur Phencyclidine Scrn Not Detected (Not Detect) Ur Amphetamines Screen Not Detected (Not Detect) U Benzodiazepines Scrn Not Detected (Not Detect) Urine Cocaine Screen Not Detected (Not Detect) U Marijuana (THC) Screen Not Detected (Not Detect) Ethyl Alcohol mg/dL 02/13/24 Range/Units 07:27 WBC (4.8-10.8) X10*3/uL RBC (4.60-5.80) X10*6/uL Hgb (14.0-18.0) g/dl Hct (42.0-52.0) % MCV (80.0-98.0) fL MCH (27.0-33.0) pg MCHC (31.0-36.0) g/dl RDW (11.0-16.0) % Plt Count (160-400) X10*3/uL MPV (9.4-12.4) fL Immature Gran % (Auto) (0.0-0.4) % Neut % (Auto) (45-73) % Lymph % (Auto) (20-40) % Duc[place]ne % (Auto) (2-11) % Eos % (Auto) (0-4) % Baso % (Auto) (0-2) % Lymph # (Auto) (1.2-4.9) X10*3/uL Duc[place]ne # (Auto) (0.1-1.2) X10*3/uL Eos # (Auto) (0.0-0.4) X10*3/uL Baso # (Auto) (0.0-0.2) X10*3/uL Abs Immat Gran (auto) (0.00-0.03) X10*3/uL Absolute Neuts (auto) (2.0-8.3) x10*3/uL Absolute Nucleated RBC (0.0-0.012) X10*3/uL Nucleated RBC % (auto) (0.0-0.2) /100WBC ESR (0-15) MM/HR Sodium (135-145) mmol/L Potassium (3.3-5.1) mmol/L Chloride (96-108) mmol/L Carbon Dioxide (22-29) mmol/L Anion Gap (12-20) BUN (9-16) mg/dL Creatinine (0.5-1.4) mg/dL Estim Creat Clear Calc Estimated GFR POC Glucose 132 H (60-115) mg/dL Random Glucose (60-115) mg/dL Calcium (8.4-10.2) mg/dL Magnesium (1.6-2.6) mg/dL Total Bilirubin (0.0-1.0) mg/dL AST (5-37) U/L ALT (0-40) U/L Alkaline Phosphatase (39-117) U/L Total Protein (6.5-8.0) g/dL Albumin (3.5-5.0) g/dL Urine Color Urine Appearance Urine pH (5.0-9.0) Ur Specific [place] (1.005-1.025) Urine Protein (Neg-Trace) mg/dL Urine Glucose (UA) (Negative) mg/dL Urine Ketones (Negative) mg/dL Urine Blood (Negative) Urine Nitrite (Negative) Ur Leukocyte Esterase (Negative) Urine RBC (0-2) /HPF Urine WBC (0-5) /HPF Ur Squamous Epith Cells (0-2) /HPF Urine Bacteria (None Seen) Hyaline Casts (0-2) /LPF Salicylates (15-30) mg/dL Urine Opiates Screen (Not Detect) Ur Buprenorphine Scrn (Not Detect) ng/mL Ur Oxycodone Screen (Not Detect) ng/mL Urine Methadone Screen (Not Detect) ng/mL Urine Fentanyl Screen (Not Detect) Ur Barbiturates Screen (Not Detect) Ur Phencyclidine Scrn (Not Detect) Ur Amphetamines Screen (Not Detect) U Benzodiazepines Scrn (Not Detect) Urine Cocaine Screen (Not Detect) U Marijuana (THC) Screen (Not Detect) Ethyl Alcohol mg/dL Discharge Plan Discharge Clinical Impression: Suicidal ideations, Alcohol abuse Patient Disposition: Home, Self-Care Instructions: Abuse of Alcohol (ED), Suicide Prevention (ED) Additional Instructions: return for any worsening symptoms or concerns follow up with CARE team plan consider detox Prescriptions: No Action (DME) blood-glucose meter [FreeStyle Lite Meter] Kit See Rx Instructions .ROUTE .MEDSULY Qty: 1 0RF Rx Instructions: As directed 3x/day (DME) FreeStyle Lite Strips Strip See Rx Instructions .Route Qty: 300 3RF Rx Instructions: Test blood sugar TID (DME) lancets [FreeStyle Lancets] 28 gauge misc See Rx Instructions .Route Qty: 300 3RF Rx Instructions: Test blood sugar TID thiamine HCl (vitamin B1) 100 mg tablet 100 mg PO DAILY Qty: 90 3RF (DME) blood pressure test kit-medium Kit See Rx Instructions .Route Qty: 1 0RF Rx Instructions: As directed to monitor BP at home ascorbic acid (vitamin C) [Vitamin C] 500 mg tablet 500 mg PO DAILY Qty: 90 3RF folic acid 1 mg tablet 1 mg PO DAILY Qty: 90 3RF Farxiga 10 mg tablet 10 mg PO DAILY Qty: 90 1RF dabigatran etexilate [Pradaxa] 150 mg capsule 150 mg PO BID 90 Days Qty: 180 3RF metoprolol tartrate 50 mg tablet 50 mg PO BID 90 Days Qty: 180 3RF digoxin 125 mcg (0.125 mg) tablet 125 mcg PO DAILY 90 Days Qty: 90 3RF diltiazem HCl 180 mg capsule,ext.rel 24h degradable 180 mg PO DAILY 90 Days Qty: 90 3RF atorvastatin 20 mg tablet 20 mg PO BEDTIME 30 Days Qty: 30 3RF (DME) bedside commode Kit See Rx Instructions .Route Qty: 1 0RF Rx Instructions: As directed (DME) wheelchair-16 inch wide with removable footrests 16 inch wide See Rx Instructions .Route .MEDSUPPLY Qty: 1 0RF Rx Instructions: As directed buspirone 10 mg Tablet 10 mg PO BID bupropion HCl 150 mg tablet extended release 24 hr 150 mg PO DAILY Trulicity 3 mg/0.5 mL pen injector 3 mg subcut WE metformin 500 mg tablet 1,000 mg PO BID lisinopril 10 mg tablet 10 mg PO DAILY magnesium oxide 400 mg (241.3 mg magnesium) Tablet 400 mg PO DAILY Qty: 90 0RF allopurinol 100 mg tablet 200 mg PO DAILY (DME) FreeStyle Erika 14 Day Sensor Kit See Rx Instructions .Route Qty: 1 4RF Rx Instructions: As directed multivitamin Tablet 1 tab PO DAILY duloxetine 60 mg capsule,delayed release(DR/EC) 60 mg PO DAILY naltrexone 50 mg tablet 50 mg PO DAILY Interventions: [place]-Suicide Risk Severity Scale Last Done: 02/12/24 14:56 Print Language: Tanzanian
[2024-02-13 02:30] VITALS: BP 129/78; PULSE 98; RESP 17; TEMP 36.9; O2SAT 97
[2024-02-13 02:58] LABS: Glucose, Whole Blood 154 mg/dL (60-115)
[2024-02-13] MEDS: Acetaminophen 325 MG TABLET 975 MG PO (03:43)
[2024-02-13 07:33] LABS: Glucose, Whole Blood 132 mg/dL (60-115)
--- NOTE | 2024-02-13 09:39 | PC.NURSE ---
Care team, Sandeep, spoke with pt, pendign dispo at this time
--- NOTE | 2024-02-13 10:38 | MHC.RECOVRN ---
Met with pt in [id number] after request from CARE Team. Pt sitting on edge of stretcher, immediately informs t/w he has a Zoom meeting at 10AM and a meeting with his men's golf coach at 11:30AM and he needs to discharge. Pt continues to inform t/w he has not fed his cat since 6AM yesterday and also needs to get home to do that. Pt reports his alcohol use is sporadic. Reports having half of a handle of vodka prior to arrival. Pt reports prior to that, last alcohol use was approximately 1 month ago. Pt reports he is currently going through a divorce that will be final on 02/26. Reports family stress related to the divorce. Currently living alone. Pt reports he attends AA meetings multiple times a week, has a men's golf coach through [facility], and has an AA sponsor. Pt reports he has struggled with alcohol use for years. Reports hx one Sect [address]. Pt reports he is currently taking naltrexone, prescribed through his PCP. Has received Vivitrol in the past. Discussed recovery resources and supports, including the [facility]. Pt would like a 30 day treatment program after the first of the year. Pt provided with written resources as well as t/w contact information if needed. Denies questions or concerns at this time. CARE Team aware.
[2024-02-13 10:55] VITALS: BP 135/75; PULSE 81; RESP 16; TEMP 36.4; O2SAT 99
[2024-02-13 11:08] VITALS: BP 135/75; PULSE 81; RESP 16; TEMP 36.4; O2SAT 99
--- NOTE | 2024-02-13 12:07 | MHC.CARE ---
Pt has been referred to [facility] Hospitalization Program.? He has been referred to [facility] for a 3 day follow up.? Pt has been placed on alert with [facility].
== END 2024-02-13 11:17 | disposition home or self-care (01) ==
PROVIDERS: Physician Assistant Medical; Emergency Provider Emergency Medicine Emergency Medical Services
DX: F10.10 Alcohol abuse, uncomplicated (principal); Y90.8 Blood alcohol level of 240 mg/100 ml or more; R45.851 Suicidal ideations; F32.A Depression, unspecified; F43.20 Adjustment disorder, unspecified; E11.9 Type 2 diabetes mellitus without complications; I10 Essential (primary) hypertension; E78.5 Hyperlipidemia, unspecified; I48.19 Other persistent atrial fibrillation; I48.0 Paroxysmal atrial fibrillation; R53.81 Other malaise; Z79.02 Long term (current) use of antithrombotics/antiplatelets; Z79.899 Other long term (current) drug therapy; Z79.85 Long-term (current) use of injectable non-insulin antidiabetic drugs
CPT/HCPCS: 36415; 73560; 80053; 80179; 80307; 81001; 82947; 83735; 85025; 85652; 96365; 96366; 96375; 99285; J3475; S9485

== ENCOUNTER 2024-03-16 06:56 | Inpatient (IN) | payer MEDICARE, SELFPAY ==
[2024-03-16] VITALS (8 sets, daily range): BP systolic 104–140; BP diastolic 51–93; PULSE 70–101; RESP 17–19; TEMP 36.1–37.3; O2SAT 93–100; BMI 24.9; BMI 26.0
--- NOTE | ~2024-03-16 | US_ITS ---
EXAMINATION: US arterial duplex LE BI CLINICAL INFORMATION: discoloration, poor wound healing TECHNIQUE: Real-time ultrasound and Doppler techniques (integrating B-mode 2-D vascular images, Doppler spectral analysis and color flow Doppler imaging) were utilized to interrogate the lower extremities. COMPARISON: Right lower flexure arterial duplex 05/16/2023 FINDINGS: RIGHT LEG: Common femoral artery: 89 cm/s, biphasic Profunda femoris artery: 75 cm/s, Triphasic Superficial femoral artery (proximal): 146 cm/s, biphasic Superficial femoral artery (mid): 89 cm/s, biphasic Superficial femoral artery (distal): 178 cm/s, biphasic, mild stenosis Popliteal artery: 204 cm/s, biphasic Posterior tibial artery: 85 cm/s, monophasic LEFT LEG: Common femoral artery: 71 cm/s, Triphasic Profunda femoris artery: 46 cm/s, biphasic Superficial femoral artery (proximal): 120 cm/s, biphasic, mild stenosis Superficial femoral artery (mid): 77 cm/s, Triphasic Superficial femoral artery (distal): 72 cm/s, biphasic Popliteal artery: 84 cm/s, biphasic Posterior tibial artery: Below knee amputation. US/US arterial duplex LE BI IMPRESSION: 1. No evidence for hemodynamically significant stenosis. 2. Mild stenosis in the distal right superficial femoral artery and proximal left superficial femoral artery. Electronically signed by: Ailyn Spears DO 03/17/2024 07:[address] [facility]
[2024-03-16 07:18] LABS: Glucose, Whole Blood 103 mg/dL (60-115)
--- NOTE | 2024-03-16 07:51 | PC.NURSE ---
Pt has prostetic on left leg and is allowed to keep sneakers on while in pod b/c of this. Shoe laces will be removed and stored with belonings.
--- NOTE | 2024-03-16 07:53 | ED_ITS ---
HPI - Psych General Chief Complaint: Psychiatric Symptoms Stated Complaint: SECTION 12/HALLUCINATIONS Time Seen by Provider: 03/16/24 07:38 Mode of arrival: EMS History of Present Illness ED Provider: Dr. 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 Patient states he was not been able to sleep for 3 days. He states this morning at 05:00 hours when he woke up he saw his daughter in the room but she does not live near him. He states that there were other people there as well. He states that he saw 1 kid that walked through a wall. He shine a light at the wall and the kid had a shock on which made the patient fearful. He states that he also noted that there were Rah fingers on the floor of his bedroom that then turned into snakes. Patient then called the police and was brought to emergency department on a Section 12 for evaluation of his hallucinations. Patient states this has happened to him in the past when he was taking hydroxyzine. Patient does not have a history of alcohol use disorder and states that he has been sober for 2 months. He states he has been attending AA meetings and also has therapy through [facility]. He denies drug use. Patient denied being ill in any other way. Patient does have a left hdioe-[id number] amputation he states that he was lost some weight and the prosthesis does not fit as well as it used to. He does have a chronic wound to this area that he has been caring for. The wound does not appear to be infected. He also states that he has a circulation problem to his lower extremities in his lower extremities are often cold and have appropriately discoloration. He states he does follow up with our vascular surgeon, Dr. Young for his condition. Denies suicidal or homicidal ideation Related Data Home Medications ?Medication ?Instructions ?Recorded ?Confirmed duloxetine 60 mg capsule,delayed 60 mg PO DAILY 12/21/19 03/16/24 release multivitamin 1 tab PO DAILY 02/27/20 03/16/24 allopurinol 100 mg tablet 200 mg PO DAILY 02/08/21 03/16/24 naltrexone 50 mg tablet 50 mg PO DAILY Alcohol Withdrawal 08/24/22 03/16/24 bupropion HCl 150 mg 24 hr tablet, 150 mg PO DAILY 06/01/23 03/16/24 extended release buspirone 10 mg tablet 10 mg PO BID 10/06/23 03/16/24 lisinopril 10 mg tablet 10 mg PO DAILY 12/12/23 03/16/24 Previous Rx's ?Medication ?Instructions ?Recorded blood-glucose meter (FreeStyle #1 ea 04/23/20 Lite Meter kit) blood sugar diagnostic (FreeStyle #300 ea 02/11/21 Lite Strips) lancets 28 gauge (FreeStyle #300 ea 02/11/21 Lancets) flash glucose sensor (FreeStyle #1 ea 07/14/22 Erika 14 Day Sensor kit) blood pressure test kit-medium #1 ea 08/03/22 commode (bedside commode) #1 ea 09/29/23 wheelchair-16 inch wide with #1 ea 09/29/23 removable footrests magnesium oxide 400 mg (241.3 mg 400 mg PO DAILY #90 tabs 12/13/23 magnesium) tablet atorvastatin 20 mg tablet 20 mg PO BEDTIME 30 days #90 tabs 02/29/24 dabigatran etexilate 150 mg 150 mg PO BID 90 days #180 caps 02/29/24 capsule (Pradaxa) digoxin 125 mcg (0.125 mg) tablet 125 mcg PO DAILY 90 days #90 caps 02/29/24 diltiazem HCl 180 mg 180 mg PO DAILY 90 days #90 caps 02/29/24 capsule,extended release 24 hr, controlled metoprolol tartrate 50 mg tablet 50 mg PO BID 90 days #180 tabs 02/29/24 ascorbic acid (vitamin C) 500 mg 500 mg PO DAILY #90 tabs 03/05/24 tablet (Vitamin C) dapagliflozin propanediol 10 mg 10 mg PO DAILY #90 tabs 03/05/24 tablet (Farxiga) folic acid 1 mg tablet 1 mg PO DAILY #90 tabs 03/05/24 metformin 500 mg tablet 1,000 mg (2 x 500 mg) PO BID #180 03/05/24 tabs thiamine HCl (vitamin B1) 100 mg 100 mg PO DAILY #90 tabs 03/05/24 tablet Allergies Allergy/AdvReac Type Severity Reaction Status Date / Time vancomycin [VANCOMYCIN] Allergy Severe ANGIOEDEMA Verified 03/16/24 07:37 Sulfa (Sulfonamide Allergy Intermediate Rash Verified 03/16/24 07:37 Antibiotics) sulfamethoxazole Allergy rash Verified 03/16/24 07:37 [From Bactrim] trimethoprim [From Bactrim] Allergy Rash Verified 03/16/24 07:37 Review of Systems 2 Review of Systems: Yes all other systems are reviewed and are negative [facility] Past Medical History [facility] Narrative: Social history: The patient states that he was since March of 2022. He states that he was currently living in his house but they just recently sold the house. He states he was estrange from his children. He denies tobacco, alcohol and drug use. He states that he was to drink pt to 0.75 L of alcohol per day but he was not been drinking in over 2 months. He has been attending AA meetings and gets counseling through [facility]. Medical History Rosacea Annual physical exam Persistent atrial fibrillation Orthostatic hypotension Lymphoma Depression Essential hypertension Hyperlipidemia LDL goal <100 Obesity due to excess calories BMI 30.0-30.9,adult DM (diabetes mellitus) ETOH abuse BPH associated with nocturia CAD (coronary artery disease) Long-term current use of intravenous immunoglobulin (IVIG) GERD (gastroesophageal reflux disease) Hypogammaglobulinemia Diabetic eye exam Adjustment disorder PAF (paroxysmal atrial fibrillation) Gout Chronic osteomyelitis Splenic marginal zone b-cell lymphoma EMIL (obstructive sleep apnea) Surgical History Status post below-knee amputation of left lower extremity Osteomyelitis Osteomyelitis History of esophagogastroduodenoscopy (EGD) History of colonoscopy History of bunionectomy History of cardiac cath Family History Family History Father Diabetes Mother Liver cancer Maternal Grandfather CVD (cardiovascular disease) Brother Myocardial infarction Social History Social History Household Members: None Housing: House Do you presently have visiting nurse or other home services: No Alcohol intake: former Year quit: 2019 Comment: sitter in room / video Patient Tobacco Use Status: Never used Tobacco Smoked in Last 30 Days: No e-Cigarette/Vaping Use: Never Used Second Hand Smoke Exposure: No Use of substances other than those prescribed or required for medical reasons: No Advance Directives: Yes Advance Directives on File: Yes Advance Directives Date on File: 10/10/23 service: No Current occupational status: employed 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 Exam: General: Awake, alert in no distress, answers all questions appropriately, does have tremors of his upper extremities. Head: Normocephalic, atraumatic EENT: PERRL, Lids normal, sclera normal, conjunctiva normal, nose normal , ears normal, throat without erythema or exudates Neck: Supple, no adenopathy Lung: breath sounds symmetric, no wheezing, rales or rhonchi Chest: symmetric movement, nontender Heart: regular rate and rhythm, normal S1, S2 no murmurs or rubs Abdomen: soft, non-tender, nondistended, normal bowel sounds Back: no vertebral tenderness, no CVAT Extremities: Patient has a left jrzpm-khs-rehs amputation there are chronic appearing wounds to the stump but they do not appear to be infected. Patient has a purplish discoloration of his left knee and stump as well as his right knee down to his foot. Patient does not have any significant diabetic ulcers to the right foot. The patient does have very dry skin to both lower extremities. Neuro: Awake, alert, oriented, normal speech, cranial nerves intact, moves all extremities symmetrically Psych: Pleasant, cooperative Medications Administered Generic Name Dose Route Start Last Admin Trade Name Freq PRN Reason Stop Dose Admin Allopurinol 200 mg 03/16/24 13:30 03/16/24 13:48 Allopurinol 100 Mg Tablet PO 200 mg DAILY MADDY Administration Ascorbic Acid 500 mg 03/16/24 13:30 03/16/24 13:48 Ascorbic Acid 500 Mg Tablet PO 500 mg DAILY MADDY Administration Bupropion HCl 150 mg 03/16/24 13:30 03/16/24 13:47 Bupropion Hcl Xl 150 Mg Tab.Er.24h PO 150 mg DAILY MADDY Administration Buspirone HCl 10 mg 03/16/24 13:30 03/16/24 13:57 Buspirone Hcl 10 Mg Tablet PO 10 mg BID MADDY Administration Dabigatran 150 mg 03/16/24 13:30 03/16/24 14:47 Dabigatran Etexilate Mesylate 150 Mg Capsule PO 150 mg BID MADDY Administration Digoxin 0.125 mg 03/16/24 13:30 03/16/24 14:00 Digoxin 0.125 Mg Tablet PO 0.125 mg DAILY MADDY Administration Protocol Diltiazem HCl 180 mg 03/16/24 13:30 03/16/24 13:47 Diltiazem Hcl Cd 180 Mg Cap.Er.24h PO 180 mg DAILY MADDY Administration Protocol Duloxetine HCl 60 mg 03/16/24 13:30 03/16/24 13:47 Duloxetine Hcl 60 Mg Capsule.Dr PO 60 mg DAILY MADDY Administration Empagliflozin 10 mg 03/16/24 14:00 03/16/24 16:03 Empagliflozin 10 Mg Tablet PO 10 mg DAILY MADDY Administration Folic Acid 1 mg 03/16/24 13:30 03/16/24 13:47 Folic Acid 1 Mg Tablet PO 1 mg DAILY MADDY Administration Lisinopril 10 mg 03/16/24 13:30 03/16/24 13:46 Lisinopril 10 Mg Tablet PO 10 mg DAILY MADDY Administration Protocol Magnesium Oxide 400 mg 03/16/24 13:30 03/16/24 13:47 Magnesium Oxide 400 Mg Tablet PO 400 mg DAILY MADDY Administration Metoprolol Tartrate 50 mg 03/16/24 13:30 03/16/24 13:46 Metoprolol Tartrate 50 Mg Tablet PO 50 mg BID MADDY Administration Protocol Multivitamins/Vitamin C 1 tab 03/16/24 13:30 03/16/24 13:46 Multivitamin Tablet PO 1 tab DAILY MADDY Administration Naltrexone HCl 50 mg 03/16/24 13:30 03/16/24 13:57 Naltrexone Hcl 50 Mg Tablet PO 50 mg DAILY MADDY Administration Thiamine HCl 100 mg 03/16/24 13:30 03/16/24 13:48 Thiamine Hcl 100 Mg Tablet PO 100 mg DAILY MADDY Administration Discontinued Medications Generic Name Dose Route Start Last Admin Trade Name Yuridia PRN Reason Stop Dose Admin Haloperidol 10 mg 03/16/24 14:41 03/16/24 14:46 Haloperidol 5 Mg Tablet PO 03/16/24 14:42 10 mg ONCE ONE Administration Thiamine HCl 500 mg/ Sodium 105 mls @ 210 mls/hr 03/16/24 14:55 03/16/24 16:01 Chloride IV 03/16/24 15:24 210 mls/hr ONCE ONE Administration Sodium Chloride 1,000 mls @ 999 mls/hr 03/16/24 14:55 03/16/24 16:01 Ns IV 03/16/24 15:55 999 mls/hr .Q1H1M STA Administration Lorazepam 2 mg 03/16/24 14:41 03/16/24 14:47 Lorazepam 1 Mg Tablet PO 03/16/24 14:42 2 mg ONCE STA Administration Phenobarbital Sodium 390 mg 03/16/24 15:30 03/16/24 16:02 Phenobarbital Sodium 130 Mg/Ml Im Once IM 03/16/24 15:31 390 mg ONCE ONE Administration Medical Decision Making Medical Decision Making MDM Narrative: 68-year-old male with a history of left zsywp-cnw-gjji amputation depression, hypertension, hyperlipidemia, diabetes mellitus, alcohol use disorder, coronary disease, GERD, paroxysmal atrial fibrillation, 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 Patient was seeing people that are not in the room, he was seeing snakes on the floor. The patient has not been able to sleep for 3 days. He denies alcohol and drug use. Patient was had hallucinations in the past and he states that these were triggered by hydroxyzine. Review of systems was unremarkable. Physical examination was also unremarkable except for a resting tremor and chronic wound to his left BKA stump. Patient also has purplish discoloration to his lower extremities which is chronic may be secondary to Raynaud's disease or another vascular disease, patient does see Dr. Young for this condition. He denies being suicidal or homicidal. Differential diagnosis: ?Includes but is not limited to visual hallucinations, alcohol withdrawal, drug-induced hallucinations, anemia, electrolyte abnormalities Following evaluation was ordered: CBC, CMP, ethanol level, drug screen urine, COVID-19, influenza, RSV Course: 11:20 My independent interpretation patient's laboratory evaluation is as follows: Normocytic anemia with an H&H of 14 and 38.2. WBC was normal 5800. Platelet count was normal. BUN is elevated 19 with a normal creatinine of 1.12. Total bilirubin elevated at 1.8. AST elevated 30. Alk-phos elevated 144. Urine tox screen was positive for barbiturates. Ethanol level was below detectable limits. COVID-19, influenza and RSV were negative. The patient was medically cleared for care team evaluation. 14:53 The patient is tremulous and weak. Patient also had loose diarrheal stool. Patient was also hallucinating. Patient's CIWA was 12. The patient denies drinking alcohol however his clinical picture is consistent with alcohol withdrawal. Patient was ordered to get Ativan 2 mg orally and Haldol 10 mg orally. Patient will be transferred to the emergency department and started on the phenobarbital protocol. I will also treat the patient with thiamine 500 mg IV, folate 1 mg orally and normal saline x1 L IV. Given his symptoms, the patient can not be discharged home or sense your psychiatric facility until he was stabilized. The patient was not suicidal or homicidal therefore he does not need one-to-one observation. I will discuss admission with the covering hospitalist. Admission/Observation Consideration of admission/observation: Escalation of care including admission/observation considered (Yes) Consult Healthcare Provider Management of the patient was discussed with: Hospitalist Lab Data MDM Lab Attestation statement: I reviewed the patient's lab results. 03/16/24 08:13 03/16/24 08:13 Labs: Lab Results 03/16/24 03/16/24 03/16/24 Range/Units 07:15 07:47 08:13 WBC 8.8 (4.8-10.8) X10*3/uL RBC 3.96 L (4.60-5.80) X10*6/uL Hgb 14.0 (14.0-18.0) g/dl Hct 38.2 L (42.0-52.0) % MCV 96.5 (80.0-98.0) fL MCH 35.4 H (27.0-33.0) pg MCHC 36.6 H (31.0-36.0) g/dl RDW 14.5 (11.0-16.0) % Plt Count 281 (160-400) X10*3/uL MPV 10.2 (9.4-12.4) fL Immature Gran % (Auto) 0.3 (0.0-0.4) % Neut % (Auto) 73.7 H (45-73) % Lymph % (Auto) 13.8 L (20-40) % Dyer % (Auto) 9.8 (2-11) % Eos % (Auto) 1.4 (0-4) % Baso % (Auto) 1.0 (0-2) % Lymph # (Auto) 1.2 (1.2-4.9) X10*3/uL Dyer # (Auto) 0.9 (0.1-1.2) X10*3/uL Eos # (Auto) 0.1 (0.0-0.4) X10*3/uL Baso # (Auto) 0.1 (0.0-0.2) X10*3/uL Abs Immat Gran (auto) 0.03 (0.00-0.03) X10*3/uL Absolute Neuts (auto) 6.5 (2.0-8.3) x10*3/uL Absolute Nucleated RBC 0.000 (0.0-0.012) X10*3/uL Nucleated RBC % (auto) 0.0 (0.0-0.2) /100WBC Sodium 139 (135-145) mmol/L Potassium 4.0 (3.3-5.1) mmol/L Chloride 99 (96-108) mmol/L Carbon Dioxide 27 (22-29) mmol/L Anion Gap 17 (12-20) BUN 19 H (9-16) mg/dL Creatinine 1.12 (0.5-1.4) mg/dL Estim Creat Clear Calc 74.4 Estimated GFR > 60 POC Glucose 103 (60-115) mg/dL Random Glucose 112 (60-115) mg/dL Calcium 9.4 D (8.4-10.2) mg/dL Total Bilirubin 1.8 H (0.0-1.0) mg/dL AST 38 H (5-37) U/L ALT 20 (0-40) U/L Alkaline Phosphatase 143 H (39-117) U/L Total Protein 6.8 (6.5-8.0) g/dL Albumin 4.3 (3.5-5.0) g/dL Urine Opiates Screen Not Detected (Not Detect) Ur Buprenorphine Scrn Not Detected (Not Detect) ng/mL Ur Oxycodone Screen Not Detected (Not Detect) ng/mL Urine Methadone Screen Not Detected (Not Detect) ng/mL Urine Fentanyl Screen Not Detected (Not Detect) Ur Barbiturates Screen POSITIVE H (Not Detect) Ur Phencyclidine Scrn Not Detected (Not Detect) Ur Amphetamines Screen Not Detected (Not Detect) U Benzodiazepines Scrn Not Detected (Not Detect) Urine Cocaine Screen Not Detected (Not Detect) U Marijuana (THC) Screen Not Detected (Not Detect) Ethyl Alcohol < 10 mg/dL Influenza Type A (PCR) NEGATIVE (Negative) Influenza Type B (PCR) NEGATIVE (Negative) RSV RNA Qual (PCR) NEGATIVE (Negative) SARS-CoV-2 RNA (RT-PCR) NEGATIVE (Negative) 03/16/24 Range/Units 14:24 WBC (4.8-10.8) X10*3/uL RBC (4.60-5.80) X10*6/uL Hgb (14.0-18.0) g/dl Hct (42.0-52.0) % MCV (80.0-98.0) fL MCH (27.0-33.0) pg MCHC (31.0-36.0) g/dl RDW (11.0-16.0) % Plt Count (160-400) X10*3/uL MPV (9.4-12.4) fL Immature Gran % (Auto) (0.0-0.4) % Neut % (Auto) (45-73) % Lymph % (Auto) (20-40) % Dyer % (Auto) (2-11) % Eos % (Auto) (0-4) % Baso % (Auto) (0-2) % Lymph # (Auto) (1.2-4.9) X10*3/uL Dyer # (Auto) (0.1-1.2) X10*3/uL Eos # (Auto) (0.0-0.4) X10*3/uL Baso # (Auto) (0.0-0.2) X10*3/uL Abs Immat Gran (auto) (0.00-0.03) X10*3/uL Absolute Neuts (auto) (2.0-8.3) x10*3/uL Absolute Nucleated RBC (0.0-0.012) X10*3/uL Nucleated RBC % (auto) (0.0-0.2) /100WBC Sodium (135-145) mmol/L Potassium (3.3-5.1) mmol/L Chloride (96-108) mmol/L Carbon Dioxide (22-29) mmol/L Anion Gap (12-20) BUN (9-16) mg/dL Creatinine (0.5-1.4) mg/dL Estim Creat Clear Calc Estimated GFR POC Glucose 194 H (60-115) mg/dL Random Glucose (60-115) mg/dL Calcium (8.4-10.2) mg/dL Total Bilirubin (0.0-1.0) mg/dL AST (5-37) U/L ALT (0-40) U/L Alkaline Phosphatase (39-117) U/L Total Protein (6.5-8.0) g/dL Albumin (3.5-5.0) g/dL Urine Opiates Screen (Not Detect) Ur Buprenorphine Scrn (Not Detect) ng/mL Ur Oxycodone Screen (Not Detect) ng/mL Urine Methadone Screen (Not Detect) ng/mL Urine Fentanyl Screen (Not Detect) Ur Barbiturates Screen (Not Detect) Ur Phencyclidine Scrn (Not Detect) Ur Amphetamines Screen (Not Detect) U Benzodiazepines Scrn (Not Detect) Urine Cocaine Screen (Not Detect) U Marijuana (THC) Screen (Not Detect) Ethyl Alcohol mg/dL Influenza Type A (PCR) (Negative) Influenza Type B (PCR) (Negative) RSV RNA Qual (PCR) (Negative) SARS-CoV-2 RNA (RT-PCR) (Negative) Critical Care Time Critical Care Time Critical Care Time: Yes Total Critical Care Time: 45 Attestation: Critical Care: The patient was critically ill with a high probability of imminent or life threatening deterioration. I spent greater than 30 minutes of discontinuous time evaluating the patient,delivering critical care at the bedside, discussing and evaluating pertinent data with consultants. Critical care time does not include time spent performing separately billable procedures or teaching. Total time spent performing critical care was 45 minutes. Discharge Plan Discharge Clinical Impression: Auditory hallucination, Weakness Diarrhea Qualifiers: Diarrhea type: unspecified type Qualified Code(s): R19.7 - Diarrhea, unspecified Alcohol withdrawal Qualifiers: Complication of substance-induced condition: with delirium Qualified Code(s): F 10.931 - Alcohol use, unspecified with withdrawal delirium Patient Disposition: Admitted As Inpatient Interventions: Keith-Suicide Risk Severity Scale Last Done: 03/16/24 07:42 Print Language: Vietnamese
--- OUTSIDE RECORDS SUMMARY | 2024-03-16 07:54 | XMS_ITS | Patient Health Record ---
[facility] Organization [facility] Address [address] [facility] [place] [address] Care Team Providers Care Smoke Room Operator Name Role Phone Nikole Mauricio MD Primary Care Provider Tony Ribeiro Unavailable [phone] Allergies Allergen (clinical drug ingredient) Drug/Non Drug Allergy documented on EMR Reaction Allergy Type Onset Date Status sulfamethoxazole / trimethoprim Bactrim rash Drug Allergy Active trimethoprim Trimethoprim rash Drug Allergy A ctive vancomycin Vancomycin HCl angioedema Drug Allergy Active Substance with sulfonamide structure and antibacterial mechanism of action (substance) Sulfa Antibiotics rash Drug Allergy Active Results Component Value Reference Range Notes HEMOGLOBIN A1C (GLYCOHEMOGLO BIN) Reviewed date:05/25/2023 12:57:16 PM Interpretation: Performing Lab: Notes/Report: HEMOGLOBIN A1C (HH) 6.0 Reason For Referral No Information Medications Medication SIG (Take, Route, Frequency, Duration) Notes Start Date End Date Status dilTIAZem HCl ER 180 MG 1 tablet Orally Once a day Active Atorvastatin Calcium 20 MG 1 tablet Oral ly Once a day Active buPROPion HCl ER (XL) 300 MG 1 tablet in the morning Orally Once a day Active Lisinopril 5 MG 1 tablet Orally Once a day Active hydrOXYzine HCl 25 MG as directed Orally Active metroNIDAZOLE 0.75 % 1 application Exter obie Twice a day Active busPIRone HCl 7.5 MG 1 tablet Orally Twi ce a day Active Metoprolol Tartrate 50 MG 1 tablet with food Orally Twice a day Active Farxiga 10 MG 1 tablet Orally Once a day Active Ketoconazole 2 % 1 application Chassis Engineer ally Once a day Active Trulicity 3 MG/0.5ML as directed Subcutaneous Active Zinc 50 MG 1 tablet Orally Once a day Active Allopurinol 200 MG 1 tablet Orally Once a day Active Vitamin B2 Active DULoxetine HCl 60 MG 1 capsule Orally On ce a day Active Ciclopirox Olamine 0.77 % 1 application to affected area Externally Twice a day to effected areas on feet for 30 days 08/08/2023 Active Vitamin C 500 MG as directed Orally Active Digoxin 125 MCG 1 tablet Orally Active Folic Acid 1 MG 1 tablet Orally Once a day Active Naltrexone Active metFORMIN HCl 1000 MG 1 tablet with a me al Orally Once a day Active Multivitamin Active Dabigatran Etexilate Mesylate 150 MG 1 capsule Orally Twice a day Active Social History Tobacco Use: Social History Observation Description Date Details (start date - stop date) Never Smoker NA - NA Tobacco Use/Smoking Question Answer Notes Are you a: nonsmoker Additional Findings: Tobacco Non-User Current no n-smoker Alcohol Screen Question Answer Notes Did you have a drink containing alcohol in the p ast year? Yes Points 0 Interpretation Negative Tobacco use other than smoking: Question Answer Notes Are you an other tobacco user? No Problems Problem Type SNOMED Code ICD Code Onset Dates Problem Status W/U Status Risk Notes Problem Non-pressure chronic ulcer of other part of right foot limited to breakdown of skin (L97.511) Active confirmed Problem Polyneuropathy due to diabetes mellitus type I (513021580) 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 Vital Signs Height 6ft 2in in 08/08/2023 Weight 195 lbs 08/08/2023 BMI 25.03 kg/m2 08/08/2023 Procedures Procedure Date Ordered Date Performed Result Body Sit e 53479-NXAE SKIN LESIONS, OVER 4 05/25/2023 N/A 46305- I&D ABSCESS-COMPLICATED,MULTI 08/08/2023 N/A 40453-ZRRZ SKIN LESIONS, 2 TO 4 08/08/2023 N/A Encounters Encounter Location Date Provider Diagnosis [facility] [place] [address] [place] [address] 05/25/2023 Tony Reeves Tinea unguium B35.1 ; Pain in right toe(s) M79.674 ; Pain in left toe(s) M79.675 ; Skin disease L98.9 ; Type 1 diabetes mellitus with diabetic polyneuropathy E10.42 ; 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 and Xerosis cutis L85.3 [facility] [address] [address] 08/08/2023 Tony Reeves Tinea unguium B35.1 ; Pain in right toe(s) M79.674 ; Pain in left toe(s) M79.675 ; Skin disease L98.9 ; Type 1 diabetes mellitus with diabetic polyneuropathy E10.42 ; 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 ; Xerosis cutis L85.3 ; Abscess, toe, right L02.611 and Tinea pedis B35.3 [facility] [address] 04/26/[address] [address] [facility]/17[facility] [address] 08/08/[address] [address] 08/16/[address] [address] 10/19/2023 Tony Reeves Assessments Encounter Date Diagnosis (ICD Code) Assessment Notes Treatment Notes Treatment Clinical Notes Section Notes 05/25/2023 Tinea unguium (ICD-10 - B35.1) 05/25/2023 Pain in right toe(s) (ICD-10 - M79.674) 08/08/2023 Tinea unguium (ICD-10 - B35.1) 08/08/2023 Pain in right toe(s) (ICD-10 - M79.674) 08/08/2023 Pain in left toe(s) (ICD-10 - M79.675) 05/25/2023 Pain in left toe(s) (ICD-10 - M79.675) 05/25/2023 Skin disease (ICD-10 - L98.9) 08/08/2023 Skin disease (ICD-10 - L98.9) 08/08/2023 Type 1 diabetes mellitus with diabetic polyneuropathy (ICD-10 - E10.42) Patient Educated with: DIABETIC FOOT CARE INSTRUCTIONS. pdf (DIABETIC FOOT CARE INSTRUCTIONS. pdf) 05/25/2023 Type 1 diabetes mellitus with diabetic polyneuropathy (ICD-10 - E10.42) Patient Educated with: DIABETIC FOOT CARE INSTRUCTIONS. pdf (DIABETIC FOOT CARE INSTRUCTIONS. pdf) 05/25/2023 Non-pressure chronic ulcer of other part of right foot limited to breakdown of skin (ICD-10 - L97.511) 08/08/2023 Non-pressure chronic ulcer of other part of right foot limited to breakdown of skin (ICD-10 - L97.511) 05/25/2023 Xerosis cutis (ICD-10 - L85.3) 08/08/2023 Xerosis cutis (ICD-10 - L85.3) 08/08/2023 Abscess, toe, right (ICD-10 - L02.611) 08/08/2023 Tinea pedis (ICD-10 - B35.3) Plan Of Treatment Pending Test Test Name Order Date 17069- I&D ABSCESS-COMPLICATED,MULTI 48368-AVDF SKIN LESIONS, OVER 4 05/25/19 24 71419-ZUTG SKIN LESIONS, 2 TO 4 08/08/19 Insurance Providers Payer Name Payer Address Payer Phone Subscriber Number Group Number Insured Name Patient Relationship to Insured Coverage Start Date Coverage End Date [facility] [employer] Claims [address] [facility] [place] [address] [phone] [id number] Ashley Francis Self - patient is the insured Medical (General) History Medical History History ICD Code Anxiety Back,Hip,and Knee pain Cancer Depression Diabetic Heart disease High blood pressure Numbness ulcer Gout Measles Mumps Chicken pox Atherosclerotic cardiovascular disease ( ASCVD) Coronary artery disease Chronic osteomylitis Reflux ( GERD) Hyperlipidemia Lymphoma Hypogammaglobulinemia Sleep apnea Atrial fibrillation Rosacea Orthostatic hypotension Splenic marginal zone b-cell lymphoma Surgical History Surgery Date(Month/Year) splenectomy 08/08/2018 left below the knee amputation 12/2016 amputation, big toe (left) 04/2016 amputation, 4th toe (left) 11/2015 bunionectomy colonoscopy esophagogastroduodenoscopy Hospitalization History Reason Date(Month/Year) [facility]- fell off chair, fractured left shou reji
--- OUTSIDE RECORDS SUMMARY | 2024-03-16 07:54 | XMS_ITS | Data Portability ---
Author Organization [employer] Address [address] [place] [address] Care Team Providers Care Pool Installer Name Role Phone HIM MARY OTHER Assessment Encounter Date Assessment Date Assessment LastModified by Organization Details LastModified Time 09/12/2023 09/12/2023 service called for wound care found 68 yom with L AKA and poorly healing wound requiring wound care pt recently d/c from hospital stay requiring visit for bridging wound care denies new redness, tenderness, drainage from wounds denies fever, chills VSS reported exam wound dusky red ring, no drainage #Chronic wound no e/o new infection continue DSG refer to wound care vkudesia Not available 09/12/2023 19:30:38 Plan of Treatment Reminders Order Date Submit Date Provider Last Modified By Organization Details Last Modified Time Details Appointments None record ed. Lab None record ed. Referral None record ed. Procedures None record ed. Surgeries None record ed. Imaging None record ed. Medication Orders None record ed. Patient TargetsNo targets recorded. Patient InstructionsNo instructions recorded. Reason for Referral None Reported. Medical Equipment None Reported. Allergies Allergen ID Allergen Name Allergen Category Reaction Reaction Severity Criticality Documentation Date Start Date Code Code System Note Provider Name and Address Organization Details Recorded Time 7567 vancomyci n medicatio n Not available Not available Not available 01/23/2024 45132 RxNorm Not Available [facility] - production 4 03:38:22 7568 Bactrim medicatio n Not available Not available Not available 01/23/2024 46761 9 RxNorm Not Available [facility] - production 4 03:38:22 Medications Name Sig Start Date Stop Date Status Note LastModified by Organization Details LastModified Time metformin 500 mg tablet TAKE TWO TABLETS BY MOUTH TWICE A DAY active Not Available Not Available No t Available atorvastatin 20 mg tablet TAKE ONE TABLET BY MOUTH EVERY DAY active Not Available Not Available No t Available Vitamin C 500 mg tablet TAKE ONE TABLET BY MOUTH EVERY DAY active Not Available Not Available No t Available diltiazem CD 180 mg capsule,extend ed release 24 hr active Not Available Not Available Not Available naltrexone 50 mg tablet TAKE ONE TABLET BY MOUTH EVERY DAY active Not Available Not Available No t Available thiamine HCl (vitamin B1) 100 mg tablet TAKE ONE TABLET BY MOUTH EVERY DAY active Not Available Not Available No t Available allopurinol 100 mg tablet TAKE TWO TABLETS BY MOUTH EVERY DAY active Not Available Not Available No t Available buspirone 10 mg tablet active Not Available Not Available No t Available metoprolol tartrate 50 mg tablet TAKE ONE TABLET BY MOUTH TWICE A DAY active Not Available Not Available No t Available buspirone 7.5 mg tablet TAKE ONE TABLET BY MOUTH TWICE A DAY FOR ANXIETY active Not Available Not Available No t Available folic acid 1 mg tablet TAKE ONE TABLET BY MOUTH EVERY DAY active Not Available Not Available No t Available hydroxyzine HCl 25 mg tablet active Not Available Not Available Not Available lisinopril 5 mg tablet active Not Available Not Available No t Available digoxin 125 mcg (0.125 mg) tablet TAKE ONE TABLET BY MOUTH EVERY DAY active Not Available Not Available No t Available doxycycline hyclate 100 mg tablet active Not Available Not Available Not Available ciclopirox 0.77 % topical cream active Not Available Not Available Not Available bupropion HCl XL 300 mg 24 hr tablet, extended release TAKE ONE TABLET BY MOUTH EVERY MORNING active Not Available Not Available No t Available bupropion HCl XL 150 mg 24 hr tablet, extended release TAKE ONE TABLET BY MOUTH EVERY MORNING active Not Available Not Available No t Available DILT-XR 180 mg capsule, extended release TAKE ONE CAPSULE BY MOUTH EVERY DAY active Not Available Not Available No t Available duloxetine 60 mg capsule,delaye d release TAKE ONE CAPSULE BY MOUTH EVERY MORNING active Not Available Not Available No t Available Lubricant Eye Drops 0.5 % INSTILL ONE DROP INTO BOTH EYES TWICE A DAY active Not Available Not Available No t Available dabigatran etexilate 150 mg capsule active Not Available Not Available N ot Available testosterone 20.25 mg/1.25 gram per pump act.(1.62 %) transdermal gel active Not Available Not Available Not Available Farxiga 10 mg tablet TAKE ONE TABLET BY MOUTH EVERY DAY active Not Available Not Available No t Available Trulicity 3 mg/0.5 mL subcutaneous pen injector INJECT 3MG UNDER THE SKIN EVERY WEEK active Not Available Not Available No t Available Vitals Date Recorded Heart rate Body height Oxygen saturation Oxygen saturation in Arterial blood by Pulse oximetry Body weight Body temperature Respiratory rate Systolic blood pressure Diastolic blood pressure Provider Name and Address Organization Details Last Updated DateTime 4 96 /min 187.96 cm 100 % 100 % 52347.4 4 g 99.5 [degF] 18 /min 185 mm[Hg] 98 mm[Hg] Not Available [facility] - production 18:00:42 Social History None recorded. Functional Status None recorded. Mental Status None recorded. Family History Nothing Reported. Medical History No medical history recorded. Past Encounters Encounter ID Performer Location Encounter Start Date Encounter Closed Date Diagnosis/Indication Diagnosis SNOMED-CT Code Diagnosis ICD10 Code [id number] Carlos Loo MD Main [facility] [address] [place] [address] 09/12/2023 18:00:34 09/12/2023 21:22:44 Open wound of lower leg 986426257 S81.802A Health Concerns Section Related Observation LastModified by Organization Detai ls LastModified Time None Recorded Concern Status LastModified by Organization Details LastModified Time None Recorded Advance Directives Directive None Recorded Payers Encounter Date Sequence Insurance Name Policy Number Policy Alba Covered Member ID Alba Member ID Guarantor Name 09/12/2023 1 [facility] - DOS ON OR AFTER 2022 - DUAL ELIGIBLE - [facility] OPTIONS AND ONE CARE (MEDICARE REPLACEMENT/ADV ANTAGE - HMO) Ashley Francis [id number] Ashley Francis Notes Date Note Type Note Provider Name and Address Organization Details Recorded Time 09/12/2023 text/html CRC Nurse Triage Notes (Kritsin Aguila): Reason For Request: [facility] member medical services assistant Magaly reporting mbr is requesting [facility] for wound care for the bottom of his foot Chief Complaints: Wound Care PMH: Diabetes, Hypertension, Heart Disease Allergies: Vancomycin, Bactrim Comments: Member calling in to place a referral, identified via name and . Member manic and hyperverbal. PMHx etoh, depression, anxiety, HTN, DM, Afib, left shoulder fx and left BKA(2017). Member wears a prosthetic to his Left BKA, however, due to weight loss it has become loose. He has an open area on the scar of the incision, denies redness, warmth or drainage. Member also has a small ulcer to his right leg, but is not concerned about that one. He was in the hospital last week due to hallucinations from stress as he is going a divorce and his children won't speak with him. Member has [facility] M-W- and goes to the wound clinic 1 day week. [facility] did not see him yesterday because they thought he was still in the hospital. Member has wound cleanser, acquacel and bandages, but needs assistance and assessment. Member requesting an [facility] visit. .................... .................... .................... .................... .................... .................... .................... . Land Le[employer] Information Clerk Note From Mera Mukherjee: Sent to a call for a pt complaining of wounds that need to be redressed. [facility] arrives on scene, pt is alert and oriented, airway is patent. Pt found sitting in wheelchair. Pt has a previous left below the knee amputation. Pt states he has had a wound on dorsal right foot x 2-3 months, and wound at incision site of left amputation x 2 weeks. Pt has [facility] change dressings every Mon, Wed, Fri, and sees wound care once weekly. Pt states he has been very stressed and depressed. Pt states he was hospitalized over the weekend because he was having visual hallucinations, and [facility] didn't visit yesterday because they didn't know pt had been discharged. Pt also states he has been having issues with hypertension, but he has not been taking meds regularly. Pt requests wound care today, and states his VNA will come tomorrow and he will follow up with wound care on . BP:185/98, P:96, RR:18, SpO2:100% RA, T:99.5; Head: unremarkable; Lung sounds: clear bilaterally; Abdomen: soft, non-tender, no distention; Back: unremarkable; Extremities: Left leg: BKA amputation, wound on anterior portion of stump; Right foot: wound on right dorsal foot; wound on 3rd digit (pt states he's not sure if wound on toe happened in hospital or after discharge); [facility] consulted, and pt advised to follow up with wound care as planned. Pt advised to make follow up appt with PCP tomorrow, and talk with PCP about hypertension. Pt's wounds are dressed with pt's supplies as performed by [facility] per pt's instructions. Red flags discussed. Pt has no further questions. .................... .................... .................... .................... .................... .................... .................... . Disposition: Musa Loo MD [address] [place] [address],[address], [place], [address], [place] [employer] [facility] 09/12/2023 19:31:35
--- OUTSIDE RECORDS SUMMARY | 2024-03-16 07:54 | XMS_ITS ---
Author Organization [facility] Address [address] [place] [address] Care Team Providers Care Clay Carman Name Role Phone Nikole Mauricio MD Primary Care Provider Tony Ribeiro [phone] REASON FOR VISIT Ciclopirox Encounters Encounter Location Date Provider Diagnosis [facility] [address] [place] [address] 08/16/2023 Tony Reeves Plan Of Treatment No Information Progress Notes * Ashley FRANCISDOB:1955 (68 yo M)Acc No.[id number]:08/16/2023 Patient:?Ashley Francis :1955???Age:68 Y???Sex:Male Address: [place] [address] * true * Date:? Generated for Santy bower/Tressa/eTransmitting on:?03/16/2024 07:53 AM EST
--- OUTSIDE RECORDS SUMMARY | 2024-03-16 07:54 | XMS_ITS ---
Author Organization [facility] Address [address] [facility] [place] [address] Care Team Providers Care Wood Cutter Name Role Phone Nikole Mauricio MD Primary Care Provider Tony Ribeiro [phone] REASON FOR VISIT 10/24/23 appt Encounters Encounter Location Date [facility] [address] [place] [address] [address] [place] [address] 10/19/2023 Tony Reeves Plan Of Treatment No Information Progress Notes * Ashley FRANCISDOB:1955 (68 yo M)Acc No.[id number]:10/19/2023 Patient:?Ashley Francis :1955???Age:68 Y???Sex:Male Address: [place] [address] * true * Date:? Generated for Santy bower/Tressa/eTransmitting on:?03/16/2024 07:53 AM EST
[2024-03-16 08:06] LABS: Amphetamine Screen Urine Not Detected (Not Detect); Barbiturates, Urine POSITIVE (Not Detect); Benzodiazepines Screen Urine Not Detected (Not Detect); Buprenorphine Scr Not Detected (Not Detect); Cannabinoid Screen Urine Not Detected (Not Detect); Cocaine Screen Urine Not Detected (Not Detect); Fentanyl, urine Not Detected (Not Detect); Methadone Screen, Urine Not Detected (Not Detect); Opiate Screen Urine Not Detected (Not Detect); Oxycodone Screen Urine Not Detected (Not Detect); Phencyclidine Screen Urine Not Detected (Not Detect)
[2024-03-16 08:24] LABS: Basophils Absolute Auto 0.1 X10*3/uL (0.0-0.2); Eosinophils Absolute Auto 0.1 X10*3/uL (0.0-0.4); Eosinophils Percent Auto 1.4 % (0-4); Hematocrit 38.2 % (42.0-52.0); Imm Gran Abs Auto 0.03 X10*3/uL (0.00-0.03); Imm Gran Pct Auto 0.3 % (0.0-0.4); Lymphocytes Absolute Auto 1.2 X10*3/uL (1.2-4.9); Lymphocytes Percent Auto 13.8 % (20-40); Mean Corpuscular HGB Conc 36.6 g/dl (31.0-36.0); Mean Corpuscular Hemoglobin 35.4 pg (27.0-33.0); Mean Corpuscular Volume 96.5 fL (80.0-98.0); Mean Platelet Volume 10.2 fL (9.4-12.4); Monocytes Absolute Auto 0.9 X10*3/uL (0.1-1.2); Monocytes Percent Auto 9.8 % (2-11); Neutrophils Absolute Auto 6.5 x10*3/uL (2.0-8.3); Neutrophils Percent Auto 73.7 % (45-73); Platelet Count 281 X10*3/uL (160-400); Red Blood Count 3.96 X10*6/uL (4.60-5.80); Red Cell Distribution Width 14.5 % (11.0-16.0); White Blood Count 8.8 X10*3/uL (4.8-10.8)
[2024-03-16 08:32] LABS: Alanine Aminotransferase 20 U/L (0-40); Albumin Level 4.3 g/dL (3.5-5.0); Alkaline Phosphatase 143 U/L (39-117); Anion Gap 17 (12-20); Aspartate Amino Transferase 38 U/L (5-37); Bilirubin Total 1.8 mg/dL (0.0-1.0); Blood Urea Nitrogen 19 mg/dL (9-16); Calcium 9.4 mg/dL (8.4-10.2); Carbon Dioxide 27 mmol/L (22-29); Chloride 99 mmol/L (96-108); Creatinine Clr Calc Pharmacy 74.4; Estimated Glomerular Filt Rate > 60; Ethanol < 10 mg/dL; Glucose Random 112 mg/dL (60-115); Sodium 139 mmol/L (135-145); Total Protein 6.8 g/dL (6.5-8.0)
[2024-03-16 08:34] LABS: Influenza A PCR NEGATIVE (Negative); Influenza B PCR NEGATIVE (Negative); Resp Syncy Virus RNA Qual PCR NEGATIVE (Negative); SARS COV2 PCR INHOUSE NEGATIVE (Negative)
--- NOTE | 2024-03-16 09:23 | PC.NURSE ---
wound left stump has been seen by provider and dressed by RN.
--- NOTE | 2024-03-16 11:30 | PC.NURSE ---
med rec completed by this rn and reviewed by pharmacy.
--- NOTE | 2024-03-16 12:01 | PHA.MEDREC ---
Addendum entered by Sj Bansal [facility] 03/16/24 13:39: Dr. Barbosa is made aware of last fill of metformin in september for 30 day supply, he ordered POC glucose qid to monitor glucose for the next 24-48 hours. Addendum entered by Sj Bansal [facility] 03/16/24 13:25: Spoke tp pharmacist at [facility], patient is new to them, they just started sending him medications on 03/15/24. They did receive rx for metformin but still in pending so they have not filled it for him yet. Original Note: Pharmacy Consult ? Medication Reconciliation Pharmacy has completed the medication reconciliation. Reviewed med rec done by nursing. Left message to distribution associate pharmacist at patients mail order pharmacy to confirm metformin. Patients previous pharmacy ([facility]) reports his last fill of metformin was in September of 2023 for a 30 DS. Will update if we receive any information back.
[2024-03-16] MEDS: lisinopriL 10 MG TABLET PO (13:46)
[2024-03-16] MEDS: Multivitamin TABLET 1 TAB PO (13:46)
[2024-03-16] MEDS: Metoprolol Tartrate 50 MG TABLET PO (13:46)
[2024-03-16] MEDS: DULoxetine HCl 60 MG CAPSULE.DR PO (13:47)
[2024-03-16] MEDS: dilTIAZem HCL CD 180 MG CAP.ER.24H PO (13:47)
[2024-03-16] MEDS: Folic Acid 1 MG TABLET PO (13:47)
[2024-03-16] MEDS: Magnesium Oxide 400 MG TABLET PO (13:47)
[2024-03-16] MEDS: buPROPion HCl XL 150 MG TAB.ER.24H PO (13:47)
[2024-03-16] MEDS: Thiamine HCL 100 MG TABLET PO (13:48)
[2024-03-16] MEDS: allopurinoL 100 MG TABLET 200 MG PO (13:48)
[2024-03-16] MEDS: Ascorbic Acid 500 MG TABLET PO (13:48)
[2024-03-16] MEDS: busPIRone HCl 10 MG TABLET PO (13:57)
[2024-03-16] MEDS: Naltrexone HCl 50 MG TABLET PO (13:57)
[2024-03-16] MEDS: Digoxin 0.125 MG TABLET PO (14:00)
[2024-03-16 14:27] LABS: Glucose, Whole Blood 194 mg/dL (60-115)
--- NOTE | 2024-03-16 14:33 | PC.NURSE ---
[facility]prox 45 minuts ago patient came out of room announcing that he didnt' feel well. Was weak and shakes were worse. Skin PWD> AxOx3. Tooks sips of water then daily medication. Shortly after needed to get to bathroom with urgency. Needed assist to walk (was shaky/unsteady) and did not make it to toilet. Had large loose BM and urinated on himself and floor. Pt continues to deny ETOH use. States tremor has been present in last few days. MD aware and will try ativan.
[2024-03-16] MEDS: HaloperidoL 5 MG TABLET 10 MG PO (14:46)
[2024-03-16] MEDS: Dabigatran Etexilate Mesylate 150 MG CAPSULE PO (14:47)
[2024-03-16] MEDS: Empagliflozin 10 MG TABLET PO ×2 (14:47→16:03)
[2024-03-16] MEDS: LORazepam 1 MG TABLET 2 MG PO (14:47)
[2024-03-16] MEDS: Thiamine HCL 500 MG in 0.9 % Sodium Chloride 100 ML 210 MG IV (16:01)
[2024-03-16] MEDS: 0.9 % Sodium Chloride 1,000 ML 999 ML IV (16:01)
[2024-03-16] MEDS: PHENobarbitaL sodium 130 MG/ML IM ONCE 390 MG IM (16:02)
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
--- NOTE | 2024-03-16 18:34 | MHC.EDTECH ---
pt was found on bottom of bed, pt stated he removed his own IV, and removed off the floor representative. pt was assisted with urinal use, floor representative back on, RN made aware of IV removal.
[2024-03-16 18:36] LABS: Glucose, Whole Blood 114 mg/dL (60-115)
[2024-03-16] MEDS: PHENobarbitaL sodium 130 MG/ML VIAL IM Q3Hx2 290 MG IM ×2 (19:22→23:03)
--- NOTE | 2024-03-16 19:26 | PC.NURSE ---
this rn assumed care of pt, pt noted to be partially out of bed, pt assisted back into bed. pt CIWA=12. pt given IM medications at this time. pt noted to have removed IV access. Provider aware. normal sinus on tele 70-72bpm.
--- NOTE | 2024-03-16 19:38 | PC.NURSE ---
20G placed in right hand, wrapped with gauze for safety. pt visibly tremulous shaking and jerking arms and legs. Provider aware.
[2024-03-16] MEDS: diazePAM 10 MG/2 ML CARTRIDGE IVPUSH (19:46)
--- NOTE | 2024-03-16 19:58 | PC.NURSE ---
Montez OLIVERA at bedside to assess pt, pt medicated per mar, vss. pt gown changed and assisted in bed repositioning
[2024-03-16 21:43] LABS: Glucose, Whole Blood 81 mg/dL (60-115)
[2024-03-16] MEDS: 0.9 % Sodium Chloride Flush 3 ML SYRINGE IVFLUSH (21:46)
[2024-03-16 22:47] LABS: Appearance Urine Clear; Color Urine Yellow; Glucose Urine UA >=1000 mg/dL (Negative); Leukocyte Esterase Urine Negative (Negative); Nitrite Urine Negative (Negative); UMIC TRIGGER UACC YES; Urine Blood Negative (Negative); Urine Ketones Negative (Negative); Urine Protein Negative (Neg-Trace)
[2024-03-16 22:52] LABS: Bacteria Urine None Seen (None Seen); Hyaline Casts Urine 0-2 /LPF (0-2); RBC Urine 0-2 /HPF (0-2); Squamous Epithelial Cell Urine 0-2 /HPF (0-2); WBC Urine 0-5 /HPF (0-5)
[2024-03-17] VITALS (10 sets, daily range): BP systolic 124–143; BP diastolic 69–97; PULSE 68–83; RESP 12–20; TEMP 35.1–36.6; O2SAT 88–100
[2024-03-17] MEDS: Flu Vacc TS2024-25(6mos up)/PF 0.5 ML SYRINGE IM (00:31)
--- NOTE | 2024-03-17 05:35 | HO.SKINPHOTO ---
RIGHT LEG RIGHT LEG RIGHT KNEE RIGHT FOOT LEFT BKA LEFT KNEE
--- NOTE | 2024-03-17 05:40 | HO.SKINPHOTO ---
03/17 AT 4:20AM WORSENING MOTTLING TO BLE. MD PROCUREMENT INSPECTOR NOTIFIED LEFT BKA RIGHT LEG
[2024-03-17 06:11] LABS: Hematocrit 39.9 % (42.0-52.0); Mean Corpuscular HGB Conc 35.1 g/dl (31.0-36.0); Mean Corpuscular Hemoglobin 34.8 pg (27.0-33.0); Mean Corpuscular Volume 99.3 fL (80.0-98.0); Mean Platelet Volume 10.3 fL (9.4-12.4); Platelet Count 264 X10*3/uL (160-400); Red Blood Count 4.02 X10*6/uL (4.60-5.80); Red Cell Distribution Width 14.5 % (11.0-16.0); White Blood Count 9.1 X10*3/uL (4.8-10.8)
[2024-03-17 06:45] LABS: Anion Gap 15 (12-20); Blood Urea Nitrogen 18 mg/dL (9-16); Calcium 8.7 mg/dL (8.4-10.2); Carbon Dioxide 28 mmol/L (22-29); Chloride 101 mmol/L (96-108); Creatinine Clr Calc Pharmacy 90.5; Estimated Glomerular Filt Rate > 60; Glucose Random 91 mg/dL (60-115); Magnesium 1.4 mg/dL (1.6-2.6); Potassium 3.5 mmol/L (3.3-5.1); Sodium 140 mmol/L (135-145)
--- NOTE | 2024-03-17 07:28 | PC.NURSE ---
Patient drowsy on arrival, arousable to voice though quickly falling back asleep. On CIWA protocol. +perrla 2mm, conjugate gaze. Speech mumbled. Tongue appears midline. Face is symmetrical. Difficulty following commands, only very basic. Moving all extremities spontaneously/jerking/spastic. Covering Dr. Potter notified. Pt found to have been incontinent on arrival to unit from ED. Urine strong/foul smelling, yellow. MD notified. U/A ordered and sent showing glucose >1000. MD notified with no new orders. Many wounds to BLE (see wound photos). Mild mottling to BLE. Hx osteo s/p BKA to LLE. Discussed with covering Dr. Potter, typewriters functional tester ? Bcx, lactic, imaging. Deferred by MD at this time. 04:00 patient BLE noted to be more mottled and cool to touch than initial assessment. Covering Dr. Potter notified, typewriters functional tester questioned lactic, deferred to day provider. VSS and pulses present at this time.
[2024-03-17 07:42] LABS: Glucose, Whole Blood 62 mg/dL (60-115)
--- NOTE | 2024-03-17 09:30 | MHC.CM.PN ---
CM met with Patient at bedside and verbally addressed IMM with him(original was left at bedside and a copy has been placed on the chart). Patient was having difficulty staying awake so CM spoke with Primary and only Contact/Ex-/Moni @ [phone]. Patient is newly and he lives alone in a house. Patient has a prosthetic for his (L) BKA and he also uses a cane and w/c to assist with mobility. Patient appears to be active with [facility] and home/resume said services is the goal. CM has initiated and will follow for dc planning. PCP is Dr. Nikole Mauricio and Ex- may be able to transport Patient to home. HCP is Danyel.
--- NOTE | 2024-03-17 09:32 | P.PNIM_ITS ---
Subjective Subjective Date of Service: 03/17/24 Physical Exam 2 Vital Signs: Vital Signs: Last Vital Signs Temp 96.8 F 03/17/24 07:46 Pulse 78 03/17/24 07:46 Resp 12 03/17/24 07:46 BP 126/73 03/17/24 07:46 Pulse Ox 88 L 03/17/24 07:46 O2 Del Method Room Air 03/17/24 07:46 BMI result Body Mass Index 26.0 Objective Data Active Medications Allopurinol (Allopurinol 100 Mg Tablet) 200 mg PO DAILY [facility] Last Admin: 03/16/24 13:48 Dose: 200 mg Documented By: CT Ascorbic Acid (Ascorbic Acid 500 Mg Tablet) 500 mg PO DAILY [facility] Last Admin: 03/16/24 13:48 Dose: 500 mg Documented By: CT Atorvastatin Calcium (Atorvastatin Calcium 20 Mg Tablet) 20 mg PO BEDTIME [facility] Last Admin: 03/16/24 23:04 Dose: Not Given Documented By: SNEHA Non-Admin Reason: Patient Condition Contraindication Bupropion HCl (Bupropion Hcl Xl 150 Mg Tab.Er.24h) 150 mg PO DAILY [facility] Last Admin: 03/16/24 13:47 Dose: 150 mg Documented By: CT Buspirone HCl (Buspirone Hcl 10 Mg Tablet) 10 mg PO BID [facility] Last Admin: 03/16/24 23:04 Dose: Not Given Documented By: SNEHA Non-Admin Reason: Patient Condition Contraindication Calcium Carbonate (Calcium Carbonate 750 Mg Tab.Chew) 750 mg PO Q4H PRN PRN Reason: Heartburn Dabigatran (Dabigatran Etexilate Mesylate 150 Mg Capsule) 150 mg PO BID [facility] Last Admin: 03/16/24 23:04 Dose: Not Given Documented By: SNEHA Non-Admin Reason: Patient Condition Contraindication Digoxin (Digoxin 0.125 Mg Tablet) 0.125 mg PO DAILY [facility]; Protocol Last Admin: 03/16/24 14:00 Dose: 0.125 mg Documented By: CT Diltiazem HCl (Diltiazem Hcl Cd 180 Mg Cap.Er.24h) 180 mg PO DAILY [facility]; Protocol Last Admin: 03/16/24 13:47 Dose: 180 mg Documented By: CT Duloxetine HCl (Duloxetine Hcl 60 Mg Capsule.Dr) 60 mg PO DAILY [facility] Last Admin: 03/16/24 13:47 Dose: 60 mg Documented By: CT Empagliflozin (Empagliflozin 10 Mg Tablet) 10 mg PO DAILY [facility] Last Admin: 03/16/24 16:03 Dose: 10 mg Documented By: MOHAMUD Famotidine (Famotidine 20 Mg Tablet) 20 mg PO BID [facility] Last Admin: 03/16/24 23:04 Dose: Not Given Documented By: SNEHA Non-Admin Reason: Patient Condition Contraindication Folic Acid (Folic Acid 1 Mg Tablet) 1 mg PO DAILY [facility] Last Admin: 03/16/24 13:47 Dose: 1 mg Documented By: CT Lisinopril (Lisinopril 10 Mg Tablet) 10 mg PO DAILY [facility]; Protocol Last Admin: 03/16/24 13:46 Dose: 10 mg Documented By: CT Magnesium Hydroxide (Milk Of Magnesia 30 Ml Oral.Susp) 30 ml PO DAILY PRN PRN Reason: Constipation Magnesium Oxide (Magnesium Oxide 400 Mg Tablet) 400 mg PO DAILY [facility] Last Admin: 03/16/24 13:47 Dose: 400 mg Documented By: CT Melatonin (Melatonin 3 Mg Tablet) 6 mg PO BEDTIME PRN PRN Reason: Insomnia Metoprolol Tartrate (Metoprolol Tartrate 50 Mg Tablet) 50 mg PO BID [facility]; Protocol Last Admin: 03/16/24 23:04 Dose: Not Given Documented By: SNEHA Non-Admin Reason: Patient Condition Contraindication Multivitamins/Vitamin C (Multivitamin Tablet) 1 tab PO DAILY [facility] Last Admin: 03/16/24 13:46 Dose: 1 tab Documented By: CT Naltrexone HCl (Naltrexone Hcl 50 Mg Tablet) 50 mg PO DAILY [facility] Last Admin: 03/16/24 13:57 Dose: 50 mg Documented By: CT Ondansetron HCl (Ondansetron Hcl 4 Mg/2 Ml Vial) 4 mg IVPUSH Q8H PRN PRN Reason: Nausea and Vomiting Pharmacy Consult (Consult Rx Etoh Phenob Im/Po) 1 each MISCELLANE ONCE PRN; Protocol PRN Reason: Consult order Phenobarbital (Phenobarbital 30 Mg Tablet) 60 mg PO BID [facility] Stop: 03/18/24 21:01 Phenobarbital (Phenobarbital 30 Mg Tablet) 30 mg PO BID [facility] Stop: 03/20/24 21:01 Phenobarbital (Phenobarbital 30 Mg Tablet) 30 mg PO DAILY [facility] Stop: 03/22/24 09:01 Sodium Chloride (0.9 % Sodium Chloride Flush 3 Ml Syringe) 3 ml IVFLUSH QSHIFT ON LICENSE OF [facility] Last Admin: 03/16/24 21:46 Dose: 3 ml Documented By: KEYONA Thiamine HCl (Thiamine Hcl 100 Mg Tablet) 100 mg PO DAILY [facility] Last Admin: 03/16/24 13:48 Dose: 100 mg Documented By: CT Labs 03/17/24 05:52 03/17/24 05:52 Labs: Laboratory Results - last 24 hr 03/16/24 03/16/24 03/16/24 14:24 18:31 21:38 MCV MCH MCHC RDW Plt Count MPV Absolute Nucleated RBC Nucleated RBC % (auto) Anion Gap Estim Creat Clear Calc Estimated GFR POC Glucose 194 H 114 81 Random Glucose Calcium Magnesium Urine Color Urine Appearance Urine pH Ur Specific Lopez Urine Protein Urine Glucose (UA) Urine Ketones Urine Blood Urine Nitrite Ur Leukocyte Esterase Urine RBC Urine WBC Ur Squamous Epith Cells Urine Bacteria Hyaline Casts 03/16/24 03/17/24 03/17/24 22:30 05:52 07:37 MCV 99.3 H MCH 34.8 H MCHC 35.1 RDW 14.5 Plt Count 264 MPV 10.3 Absolute Nucleated RBC 0.000 Nucleated RBC % (auto) 0.0 Anion Gap 15 Estim Creat Clear Calc 90.5 Estimated GFR > 60 POC Glucose 62 Random Glucose 91 Calcium 8.7 D Magnesium 1.4 L* Urine Color Yellow Urine Appearance Clear Urine pH 7.0 Ur Specific Lopez 1.010 Urine Protein Negative Urine Glucose (UA) >=1000 H Urine Ketones Negative Urine Blood Negative Urine Nitrite Negative Ur Leukocyte Esterase Negative Urine RBC 0-2 Urine WBC 0-5 Ur Squamous Epith Cells 0-2 Urine Bacteria None Seen Hyaline Casts 0-2 Assessment and Plan (1) ETOH abuse: Status: Acute (2) Alcohol withdrawal: Status: Acute Plan Pt is a 69-year-old male with a PMH significant for?CAD, persistent AFib on Pradaxa, chronic osteomyelitis s/p left BKA, HTN, HLD, alcohol use disorder w/hx of withdrawal, [id number] type 2 diabetes, splenic marginal zone lymphoma, gout, BPH, and mood disorder who presents to the ED for evaluation of visual hallucinations. Patient will be admitted to the hospital medical floor for treatment and further evaluation of visual hallucinations concerning for acute alcohol withdrawal. Chronic diabetic wounds left stump wound with purulent drainage and erythema wound cx ordered Empiric doxycycline Wound care consult PVD bilateral LE disoloration distant pedal pulse (RLE), cool check arterial duplex to bilateral LE Acute alcohol withdrawal Denies recent drinking but long hx of alcohol use disorder w/withdrawal Tremors, diaphoresis, increased anxiety,visual hallucinations Continue phenobarb protocol Daily multivitamin, folic acid, thiamine Famotidine Addiction medicine consult Monitor on telemetry Hypomagnesemia replete and follow Left shoulder fracture Reports will undergo shoulder replacement surgery once chronic wounds are healed F/U outpatient with ortho Persistent AFib Continue Pradaxa, digoxin, diltiazem HTN Continue lisinopril HLD Continue statin Non insulin-dependent type 2 diabetes Hold, metformin and Trulicity Sliding-scale insulin, diabetic diet Full Code Attending:?Dr. Henderson DVT Prophylaxis: On Pradaxa Quality Stroke Does the patient have a stroke diagnosis?: No VTE Prior VTE?: No VTE Risk Level:: Medical - moderate - high VTE Device Contraindication: Treatment Not Indicated VTE Drug Contraindication: N/A - Med Ordered
[2024-03-17] MEDS: 0.9 % Sodium Chloride Flush 3 ML SYRINGE IVFLUSH ×2 (10:12→21:50)
[2024-03-17] MEDS: Magnesium Sulfate/H2O 2 GM/50 ML PIGGYBACK IV (10:12)
[2024-03-17 10:23] LABS: Estimated Average Glucose 105 mg/dL; Hemoglobin A1C 123.8008 umol/L; Hemoglobin A1c % 5.3 % (<6.0)
[2024-03-17 10:42] LABS: Ammonia 19 umol/L (13-55)
[2024-03-17 10:43] LABS: ABG Base Excess 3.8 mmol/L; ABG HCO3 26 mmol/L (22-26); ABG pCO2 33 mmHg (32-45); ABG pO2 192 mmHg (83-108)
[2024-03-17 10:43] LABS: ABG Refer to POC result
[2024-03-17 10:50] LABS: Lactic Acid 1.2 mmol/L (0.5-2.0)
[2024-03-17 11:26] LABS: Thyroid Stimulating Hormone 2.19 uIU/mL (0.32-4.0)
[2024-03-17 11:36] LABS: Glucose, Whole Blood 72 mg/dL (60-115)
[2024-03-17] MEDS: Doxycycline Hyclate 100 MG in 0.9 % Sodium Chloride 250 ML 166.67 MG IV (12:08)
--- NOTE | 2024-03-17 12:16 | MHC.CM.PN ---
[facility] is not able to accept Patient back.CM will follow.
[2024-03-17 16:12] LABS: Glucose, Whole Blood 72 mg/dL (60-115)
--- NOTE | 2024-03-17 18:33 | HO.SKINPHOTO ---
Location: Category: Stage: Length: Width: Depth: cm Location: Category: Stage: Length: Width: Depth: cm Location: Category: Stage: Length: Width: Depth: cm Location: Category: Stage: Length: Width: Depth: cm Location: Category: Stage: Length: Width: Depth: cm Location: Category: Stage: Length: Width: Depth: cm Lizzy Avendaño knee
[2024-03-17 20:24] LABS: Glucose, Whole Blood 86 mg/dL (60-115)
[2024-03-17] MEDS: Doxycycline Hyclate 100 MG in 0.9 % Sodium Chloride 250 ML 166.7 MG IV (21:41)
[2024-03-17] MEDS: Metoprolol Tartrate 50 MG TABLET PO (21:42)
[2024-03-17] MEDS: Atorvastatin Calcium 20 MG TABLET PO (21:49)
[2024-03-17] MEDS: Dabigatran Etexilate Mesylate 150 MG CAPSULE PO (21:49)
[2024-03-17] MEDS: Famotidine 20 MG TABLET PO (21:49)
[2024-03-17] MEDS: busPIRone HCl 10 MG TABLET PO (21:50)
[2024-03-18 00:46] LABS: CDiff Gene PCR NEGATIVE (Negative)
[2024-03-18 03:10] VITALS: BP 177/93; PULSE 58; RESP 16; TEMP 36.7; O2SAT 100
[2024-03-18 06:59] LABS: Anion Gap 14 (12-20); Blood Urea Nitrogen 17 mg/dL (9-16); Calcium 8.8 mg/dL (8.4-10.2); Carbon Dioxide 25 mmol/L (22-29); Chloride 101 mmol/L (96-108); Creatinine Clr Calc Pharmacy 99.2; Estimated Glomerular Filt Rate > 60; Glucose Random 124 mg/dL (60-115); Potassium 4.1 mmol/L (3.3-5.1); Sodium 136 mmol/L (135-145)
[2024-03-18 07:33] VITALS: BP 143/80; PULSE 82; RESP 18; TEMP 36.3; O2SAT 100
[2024-03-18 07:46] LABS: Glucose, Whole Blood 88 mg/dL (60-115)
[2024-03-18] MEDS: Doxycycline Hyclate 100 MG in 0.9 % Sodium Chloride 250 ML 166.7 MG IV (08:14)
[2024-03-18] MEDS: Famotidine 20 MG TABLET PO ×2 (08:15→20:24)
[2024-03-18] MEDS: lisinopriL 10 MG TABLET PO (08:15)
[2024-03-18] MEDS: Folic Acid 1 MG TABLET PO (08:15)
[2024-03-18] MEDS: Naltrexone HCl 50 MG TABLET PO (08:16)
[2024-03-18] MEDS: allopurinoL 100 MG TABLET 200 MG PO (08:16)
[2024-03-18] MEDS: busPIRone HCl 10 MG TABLET PO ×2 (08:16→20:24)
[2024-03-18] MEDS: Multivitamin TABLET 1 TAB PO (08:16)
[2024-03-18] MEDS: Ascorbic Acid 500 MG TABLET PO (08:16)
[2024-03-18] MEDS: Metoprolol Tartrate 50 MG TABLET PO ×2 (08:16→20:24)
[2024-03-18] MEDS: dilTIAZem HCL CD 180 MG CAP.ER.24H PO (08:17)
[2024-03-18] MEDS: Magnesium Oxide 400 MG TABLET PO (08:17)
[2024-03-18] MEDS: Dabigatran Etexilate Mesylate 150 MG CAPSULE PO ×2 (08:17→20:24)
[2024-03-18] MEDS: Thiamine HCL 100 MG TABLET PO (08:17)
[2024-03-18] MEDS: DULoxetine HCl 60 MG CAPSULE.DR PO (08:17)
[2024-03-18] MEDS: 0.9 % Sodium Chloride Flush 3 ML SYRINGE IVFLUSH ×2 (08:17→20:25)
[2024-03-18] MEDS: Digoxin 0.125 MG TABLET PO (08:17)
[2024-03-18] MEDS: buPROPion HCl XL 150 MG TAB.ER.24H PO (08:17)
[2024-03-18 08:31] LABS: Magnesium 1.7 mg/dL (1.6-2.6)
--- NOTE | 2024-03-18 10:50 | HO.PM.IMPN ---
Subjective Subjective Date of Service: 03/18/24 Interval History: seen and examined this AM AAOx3 denies EtOH x 2 months reports hallucinations prior to hospitalization -- denies having such problems before Review of Systems Negative except HPI/interval history. Physical Exam Vital Signs: Vital Signs: Last Vital Signs Temp 97.4 F 03/18/24 07:33 Pulse 82 03/18/24 07:33 Resp 18 03/18/24 07:33 BP 143/80 H 03/18/24 07:33 Pulse Ox 100 03/18/24 07:33 O2 Del Method Nasal Cannula 03/18/24 07:33 O2 Flow Rate 1 03/18/24 07:33 BMI result Body Mass Index 26.0 Const: Other: General - no acute distress, appears comfortable Cardiovascular - regular rate and rhythm, S1-S2 Lungs - normal respiratory effort, clear to auscultation bilaterally, no wheezing Abdomen - soft, nontender, no rebound or guarding Extremities - L BKA stump with what appears to be local infection; no significant surrounding erythema to suggest acute cellulitis Neuro - awake and alert, no focal deficits Objective Data Active Medications Allopurinol (Allopurinol 100 Mg Tablet) 200 mg PO DAILY [facility] Last Admin: 03/18/24 08:16 Dose: 200 mg Documented By: HERO Ascorbic Acid (Ascorbic Acid 500 Mg Tablet) 500 mg PO DAILY [facility] Last Admin: 03/18/24 08:16 Dose: 500 mg Documented By: HERO Atorvastatin Calcium (Atorvastatin Calcium 20 Mg Tablet) 20 mg PO BEDTIME [facility] Last Admin: 03/17/24 21:49 Dose: 20 mg Documented By: SNEHA Bupropion HCl (Bupropion Hcl Xl 150 Mg Tab.Er.24h) 150 mg PO DAILY [facility] Last Admin: 03/18/24 08:17 Dose: 150 mg Documented By: HERO Buspirone HCl (Buspirone Hcl 10 Mg Tablet) 10 mg PO BID [facility] Last Admin: 03/18/24 08:16 Dose: 10 mg Documented By: HERO Calcium Carbonate (Calcium Carbonate 750 Mg Tab.Chew) 750 mg PO Q4H PRN PRN Reason: Heartburn Dabigatran (Dabigatran Etexilate Mesylate 150 Mg Capsule) 150 mg PO BID [facility] Last Admin: 03/18/24 08:17 Dose: 150 mg Documented By: HERO Digoxin (Digoxin 0.125 Mg Tablet) 0.125 mg PO DAILY [facility]; Protocol Last Admin: 03/18/24 08:17 Dose: 0.125 mg Documented By: HERO Diltiazem HCl (Diltiazem Hcl Cd 180 Mg Cap.Er.24h) 180 mg PO DAILY [facility]; Protocol Last Admin: 03/18/24 08:17 Dose: 180 mg Documented By: HERO Duloxetine HCl (Duloxetine Hcl 60 Mg Capsule.Dr) 60 mg PO DAILY [facility] Last Admin: 03/18/24 08:17 Dose: 60 mg Documented By: HERO Empagliflozin (Empagliflozin 10 Mg Tablet) 10 mg PO DAILY [facility] Last Admin: 03/16/24 16:03 Dose: 10 mg Documented By: MOHAMUD Famotidine (Famotidine 20 Mg Tablet) 20 mg PO BID [facility] Last Admin: 03/18/24 08:15 Dose: 20 mg Documented By: HERO Folic Acid (Folic Acid 1 Mg Tablet) 1 mg PO DAILY [facility] Last Admin: 03/18/24 08:15 Dose: 1 mg Documented By: HERO Glucose (Glucose Gel 15 Gm Gel..Gram.) 15 gm PO Q15M PRN; Protocol PRN Reason: per Hypoglycemia Standing Ord. Doxycycline Hyclate 100 mg/ (Sodium Chloride) 250 mls @ 166.67 mls/hr IV BID [facility] Last Infusion: 03/18/24 09:55 Dose: Infused Documented By: HERO Dextrose (D10) 250 mls @ 750 mls/hr IV Q15M PRN; Protocol PRN Reason: per Hypoglycemia Standing Ord. Insulin Human Lispro (Insulin Lispro 100 Unit/Ml 3 Ml Vial) 0 unit SUBCUT QIDACHS [facility]; Protocol Last Admin: 03/18/24 07:50 Dose: Not Given Documented By: HERO Non-Admin Reason: No Insulin Coverage Lisinopril (Lisinopril 10 Mg Tablet) 10 mg PO DAILY [facility]; Protocol Last Admin: 03/18/24 08:15 Dose: 10 mg Documented By: HERO Magnesium Hydroxide (Milk Of Magnesia 30 Ml Oral.Susp) 30 ml PO DAILY PRN PRN Reason: Constipation Magnesium Oxide (Magnesium Oxide 400 Mg Tablet) 400 mg PO DAILY [facility] Last Admin: 03/18/24 08:17 Dose: 400 mg Documented By: HERO Melatonin (Melatonin 3 Mg Tablet) 6 mg PO BEDTIME PRN PRN Reason: Insomnia Metoprolol Tartrate (Metoprolol Tartrate 50 Mg Tablet) 50 mg PO BID [facility]; Protocol Last Admin: 03/18/24 08:16 Dose: 50 mg Documented By: HERO Multivitamins/Vitamin C (Multivitamin Tablet) 1 tab PO DAILY [facility] Last Admin: 03/18/24 08:16 Dose: 1 tab Documented By: HERO Naltrexone HCl (Naltrexone Hcl 50 Mg Tablet) 50 mg PO DAILY [facility] Last Admin: 03/18/24 08:16 Dose: 50 mg Documented By: HERO Ondansetron HCl (Ondansetron Hcl 4 Mg/2 Ml Vial) 4 mg IVPUSH Q8H PRN PRN Reason: Nausea and Vomiting Pharmacy Consult (Consult Rx Etoh Phenob Im/Po) 1 each MISCELLANE ONCE PRN; Protocol PRN Reason: Consult order Phenobarbital (Phenobarbital 30 Mg Tablet) 60 mg PO BID [facility] Last Admin: 03/17/24 10:18 Dose: Not Given Documented By: HERO Non-Admin Reason: Physician Held Med Phenobarbital (Phenobarbital 30 Mg Tablet) 30 mg PO BID [facility] Stop: 03/20/24 21:01 Phenobarbital (Phenobarbital 30 Mg Tablet) 30 mg PO DAILY [facility] Stop: 03/22/24 09:01 Sodium Chloride (0.9 % Sodium Chloride Flush 3 Ml Syringe) 3 ml IVFLUSH QSHIFT [facility] Last Admin: 03/18/24 08:17 Dose: 3 ml Documented By: HERO Thiamine HCl (Thiamine Hcl 100 Mg Tablet) 100 mg PO DAILY [facility] Last Admin: 03/18/24 08:17 Dose: 100 mg Documented By: HERO Labs 03/17/24 05:52 03/18/24 06:36 Labs: Laboratory Results - last 24 hr 03/17/24 03/17/24 03/17/24 05:52 10:28 11:31 Anion Gap Estim Creat Clear Calc Estimated GFR POC Glucose 72 Random Glucose Lactic Acid 1.2 Calcium Magnesium TSH 2.19 C. difficile Tox B Gene 03/17/24 03/17/24 03/17/24 15:57 20:20 23:45 Anion Gap Estim Creat Clear Calc Estimated GFR POC Glucose 72 86 Random Glucose Lactic Acid Calcium Magnesium TSH C. difficile Tox B Gene NEGATIVE 03/18/24 03/18/24 06:36 07:37 Anion Gap 14 Estim Creat Clear Calc 99.2 Estimated GFR > 60 POC Glucose 88 Random Glucose 124 H Lactic Acid Calcium 8.8 Magnesium 1.7 TSH C. difficile Tox B Gene Microbiology Microbiology Results: Microbiology 03/17/24 13:20 Gram Stain - Final Leg - Left Routine Culture - Preliminary Culture in progress. Assessment and Plan (1) ETOH abuse: Status: Acute (2) Alcohol withdrawal: Status: Acute Plan Pt is a 69-year-old male with a PMH significant for?CAD, persistent AFib on Pradaxa, chronic osteomyelitis s/p left BKA, HTN, HLD, alcohol use disorder w/hx of withdrawal, [id number] type 2 diabetes, splenic marginal zone lymphoma, gout, BPH, and mood disorder who presents to the ED for evaluation of visual hallucinations. Patient will be admitted to the hospital medical floor for treatment and further evaluation of visual hallucinations concerning for acute alcohol withdrawal. Question Acute alcohol withdrawal denies EtOH x 2 months; empirically started on phenobarb Tremors, diaphoresis, increased anxiety,visual hallucinations - will consult psych for input Continue phenobarb protocol Daily multivitamin, folic acid, thiamine Famotidine Addiction medicine consult Monitor on telemetry Chronic diabetic wounds left stump wound with purulent drainage and erythema Empiric doxycycline Wound care consult PVD bilateral LE disoloration distant pedal pulse (RLE), cool check arterial duplex to bilateral LE - mild stenosis; should have outpt f/u Hypomagnesemia improved with repletion Left shoulder fracture Reports will undergo shoulder replacement surgery once chronic wounds are healed F/U outpatient with ortho Persistent AFib Continue Pradaxa, digoxin, diltiazem HTN Continue lisinopril HLD Continue statin Non insulin-dependent type 2 diabetes Hold, metformin and Trulicity Sliding-scale insulin, diabetic diet on jardiace -- hold due to low poc Full Code DVT Prophylaxis: On Pradaxa Quality Stroke Does the patient have a stroke diagnosis?: No VTE Prior VTE?: No VTE Risk Level:: Medical - moderate - high VTE Device Contraindication: Treatment Not Indicated VTE Drug Contraindication: N/A - Med Ordered
--- NOTE | 2024-03-18 10:56 | MHC.RECOVRN ---
AUDIT-C Brief Intervention Pt had positive screen for unhealthy alcohol use on admission, subsequently met with t/w to discuss alcohol use and recovery supports/options. This junior copywriter met with patient to discuss current alcohol use and concerns related to increased risk of alcohol related problems.? Pt reports 1 pint (16 ounces) to a fifth (25.4 ounces) 3-4 times weekly x years, unsure when last use was but thinks it was about 2 months ago. Discussed how alcohol use has impacted health, including negative impact on relationships and family. Pt states I've lost everything. Withdrawal History: denies history withdrawal seizures Treatment History: ATS x 1 or 2, currently prescribed naltrexone from a provider through [facility], history of Vivitrol Supports:?AA sponsor, 3 good friends in AA Discussed risk reduction strategies including drinking below the recommended limit. Provided pt with written resources including information on inpatient and outpatient treatment, MITCHELL, harm reduction, and recovery coaching. Pt plans to continue with AA meetings and meeting with counselor 1:1 from [facility] once weekly. Pt provided with t/w contact information if questions or concerns arise. Denies other questions or concerns at this time.?
[2024-03-18 11:05] VITALS: BP 143/81; PULSE 75; RESP 18; TEMP 36.3; O2SAT 100
[2024-03-18 11:13] LABS: Glucose, Whole Blood 152 mg/dL (60-115)
[2024-03-18] MEDS: Insulin Lispro 100 UNIT/ML 3 ML VIAL SUBCUT (11:51)
--- NOTE | 2024-03-18 13:43 | PM.PSYCN ---
History of Present Illness Date of Service: 03/18/2024 Chief Complaint: Alcohol Withdrawal Hallucinations Requesting physician: Roscoe Hall Discussed with referring provider: Yes Sources of Information: patient interviewed, chart reviewed and crisis/core team assessment reviewed HPI Narrative: Mr. Francis is a 69 year-old male with hx of alcohol use disorder who was brought via EMS due to visual hallucinations. Pt had reported on admission seeing bugs, but also her daughter and other teenagers trying to harm him. He denied any recent alcohol use (reported last drink more than 2 months ago). BAL neg. Utox negative. Note that pt was in ED on 02/12/24 with BAL of 284. Unclear how accurate is his report about last alcohol use. Pt seen in his room. He appears somewhat confused in that it does take him some time to answer questions pertinent to his orientation. When asked about where we were, he took some time until later able to tell he was in [facility]. He was able to tell we were in Dec. He was confused about the year. He does report he was seeing things that others couldn't see as described above. He denies seeing those things now. [facility] Medical History Rosacea Annual physical exam Persistent atrial fibrillation Orthostatic hypotension Lymphoma Depression Essential hypertension Hyperlipidemia LDL goal <100 Obesity due to excess calories BMI 30.0-30.9,adult DM (diabetes mellitus) ETOH abuse BPH associated with nocturia CAD (coronary artery disease) Long-term current use of intravenous immunoglobulin (IVIG) GERD (gastroesophageal reflux disease) Hypogammaglobulinemia Diabetic eye exam Adjustment disorder PAF (paroxysmal atrial fibrillation) Gout Chronic osteomyelitis Splenic marginal zone b-cell lymphoma EMIL (obstructive sleep apnea) Surgical History Status post below-knee amputation of left lower extremity Osteomyelitis Osteomyelitis History of esophagogastroduodenoscopy (EGD) History of colonoscopy History of bunionectomy History of cardiac cath Diagnostics Vital Signs (24Hr): Vital Signs - 24 hr 03/17/24 15:26 03/17/24 15:54 03/17/24 19:05 Temperature 97.5 F 97.5 F Pulse Rate 75 83 Respiratory Rate 13 20 Blood Pressure 143/87 H 137/90 H Pulse Oximetry 100 100 Oxygen Delivery Method Nasal Cannula Nasal Cannula Oxygen Flow Rate 1 1.5 03/17/24 22:58 03/18/24 03:10 03/18/24 07:33 Temperature 96.8 F 98.1 F 97.4 F Pulse Rate 76 58 82 Respiratory Rate 20 16 18 Blood Pressure 124/78 177/93 H 143/80 H Pulse Oximetry 100 100 100 Oxygen Delivery Method Nasal Cannula Room Air Nasal Cannula Oxygen Flow Rate 1.5 1 03/18/24 11:05 Temperature 97.4 F Pulse Rate 75 Respiratory Rate 18 Blood Pressure 143/81 H Pulse Oximetry 100 Oxygen Delivery Method Nasal Cannula Oxygen Flow Rate 1 BMI result Body Mass Index 26.0 Labs 03/17/24 05:52 03/18/24 06:36 Labs: Laboratory Results - last 48 hr 03/16/24 03/16/24 03/16/24 14:24 18:31 21:38 WBC RBC Hgb Hct MCV MCH MCHC RDW Plt Count MPV Absolute Nucleated RBC Nucleated RBC % (auto) O2 Saturation ABG pH at Pt Temp ABG pCO2 at Pt Temp ABG pO2 at Pt Temp ABG HCO3 ABG Base Excess (Actual) Sodium Potassium Chloride Carbon Dioxide Anion Gap BUN Creatinine Estim Creat Clear Calc Estimated GFR POC Glucose 194 H 114 81 Random Glucose Estimat Average Glucose Hemoglobin A1c % Lactic Acid Calcium Magnesium Ammonia TSH Urine Color Urine Appearance Urine pH Ur Specific [place] Urine Protein Urine Glucose (UA) Urine Ketones Urine Blood Urine Nitrite Ur Leukocyte Esterase Urine RBC Urine WBC Ur Squamous Epith Cells Urine Bacteria Hyaline Casts C. difficile Tox B Gene 03/16/24 03/17/24 03/17/24 22:30 05:52 07:37 WBC 9.1 RBC 4.02 L Hgb 14.0 Hct 39.9 L MCV 99.3 H MCH 34.8 H MCHC 35.1 RDW 14.5 Plt Count 264 MPV 10.3 Absolute Nucleated RBC 0.000 Nucleated RBC % (auto) 0.0 O2 Saturation ABG pH at Pt Temp ABG pCO2 at Pt Temp ABG pO2 at Pt Temp ABG HCO3 ABG Base Excess (Actual) Sodium 140 Potassium 3.5 Chloride 101 Carbon Dioxide 28 Anion Gap 15 BUN 18 H Creatinine 0.92 Estim Creat Clear Calc 90.5 Estimated GFR > 60 POC Glucose 62 Random Glucose 91 Estimat Average Glucose 105 Hemoglobin A1c % 5.3 Lactic Acid Calcium 8.7 D Magnesium 1.4 L* Ammonia TSH 2.19 Urine Color Yellow Urine Appearance Clear Urine pH 7.0 Ur Specific [place] 1.010 Urine Protein Negative Urine Glucose (UA) >=1000 H Urine Ketones Negative Urine Blood Negative Urine Nitrite Negative Ur Leukocyte Esterase Negative Urine RBC 0-2 Urine WBC 0-5 Ur Squamous Epith Cells 0-2 Urine Bacteria None Seen Hyaline Casts 0-2 C. difficile Tox B Gene 03/17/24 03/17/24 03/17/24 10:28 10:36 11:31 WBC RBC Hgb Hct MCV MCH MCHC RDW Plt Count MPV Absolute Nucleated RBC Nucleated RBC % (auto) O2 Saturation 100.0 ABG pH at Pt Temp 7.50 H ABG pCO2 at Pt Temp 33 ABG pO2 at Pt Temp 192 H ABG HCO3 26 ABG Base Excess (Actual) 3.8 Sodium Potassium Chloride Carbon Dioxide Anion Gap BUN Creatinine Estim Creat Clear Calc Estimated GFR POC Glucose 72 Random Glucose Estimat Average Glucose Hemoglobin A1c % Lactic Acid 1.2 Calcium Magnesium Ammonia 19 TSH Urine Color Urine Appearance Urine pH Ur Specific [place] Urine Protein Urine Glucose (UA) Urine Ketones Urine Blood Urine Nitrite Ur Leukocyte Esterase Urine RBC Urine WBC Ur Squamous Epith Cells Urine Bacteria Hyaline Casts C. difficile Tox B Gene 03/17/24 03/17/24 03/17/24 15:57 20:20 23:45 WBC RBC Hgb Hct MCV MCH MCHC RDW Plt Count MPV Absolute Nucleated RBC Nucleated RBC % (auto) O2 Saturation ABG pH at Pt Temp ABG pCO2 at Pt Temp ABG pO2 at Pt Temp ABG HCO3 ABG Base Excess (Actual) Sodium Potassium Chloride Carbon Dioxide Anion Gap BUN Creatinine Estim Creat Clear Calc Estimated GFR POC Glucose 72 86 Random Glucose Estimat Average Glucose Hemoglobin A1c % Lactic Acid Calcium Magnesium Ammonia TSH Urine Color Urine Appearance Urine pH Ur Specific [place] Urine Protein Urine Glucose (UA) Urine Ketones Urine Blood Urine Nitrite Ur Leukocyte Esterase Urine RBC Urine WBC Ur Squamous Epith Cells Urine Bacteria Hyaline Casts C. difficile Tox B Gene NEGATIVE 03/18/24 03/18/24 03/18/24 06:36 07:37 11:03 WBC RBC Hgb Hct MCV MCH MCHC RDW Plt Count MPV Absolute Nucleated RBC Nucleated RBC % (auto) O2 Saturation ABG pH at Pt Temp ABG pCO2 at Pt Temp ABG pO2 at Pt Temp ABG HCO3 ABG Base Excess (Actual) Sodium 136 Potassium 4.1 Chloride 101 Carbon Dioxide 25 Anion Gap 14 BUN 17 H Creatinine 0.84 Estim Creat Clear Calc 99.2 Estimated GFR > 60 POC Glucose 88 152 H Random Glucose 124 H Estimat Average Glucose Hemoglobin A1c % Lactic Acid Calcium 8.8 Magnesium 1.7 Ammonia TSH Urine Color Urine Appearance Urine pH Ur Specific [place] Urine Protein Urine Glucose (UA) Urine Ketones Urine Blood Urine Nitrite Ur Leukocyte Esterase Urine RBC Urine WBC Ur Squamous Epith Cells Urine Bacteria Hyaline Casts C. difficile Tox B Gene Imaging Radiology Impressions: ITS Impressions Duplex Scan Lower Extremity Artery 03/17/24 17:48 IMPRESSION: 1. No evidence for hemodynamically significant stenosis. 2. Mild stenosis in the distal right superficial femoral artery and proximal left superficial femoral artery. Electronically signed by: Ailyn Spears DO 03/17/2024 07:36 PM EST Mental Status Exam Mental Status Exam Narrative: Appearance: wearing hospital gown, eyes closed, in NAD Behavior: cooperative Psychomotor: no agitation or retardation noted Speech: clear, some delayed in response seemed related to attempts to retrieve information, spontaneous TP: mostly linear, TC: feeling better Mood: better Affect: somewhat somnolent SI: none HI: denies VH/AH: none at the moment Delusions: not at the moment Insight/judgment: poor x 2. Memory/cog: alert, some difficulty retrieving information regarding where he is, couldn't tell year. Medications Medications Current Medications Allopurinol (Allopurinol 100 Mg Tablet) 200 mg PO DAILY [facility] Last Admin: 03/18/24 08:16 Dose: 200 mg Ascorbic Acid (Ascorbic Acid 500 Mg Tablet) 500 mg PO DAILY [facility] Last Admin: 03/18/24 08:16 Dose: 500 mg Atorvastatin Calcium (Atorvastatin Calcium 20 Mg Tablet) 20 mg PO BEDTIME [facility] Last Admin: 03/17/24 21:49 Dose: 20 mg Bupropion HCl (Bupropion Hcl Xl 150 Mg Tab.Er.24h) 150 mg PO DAILY [facility] Last Admin: 03/18/24 08:17 Dose: 150 mg Buspirone HCl (Buspirone Hcl 10 Mg Tablet) 10 mg PO BID [facility] Last Admin: 03/18/24 08:16 Dose: 10 mg Calcium Carbonate (Calcium Carbonate 750 Mg Tab.Chew) 750 mg PO Q4H PRN PRN Reason: Heartburn Dabigatran (Dabigatran Etexilate Mesylate 150 Mg Capsule) 150 mg PO BID [facility] Last Admin: 03/18/24 08:17 Dose: 150 mg Digoxin (Digoxin 0.125 Mg Tablet) 0.125 mg PO DAILY [facility]; Protocol Last Admin: 03/18/24 08:17 Dose: 0.125 mg Diltiazem HCl (Diltiazem Hcl Cd 180 Mg Cap.Er.24h) 180 mg PO DAILY [facility]; Protocol Last Admin: 03/18/24 08:17 Dose: 180 mg Duloxetine HCl (Duloxetine Hcl 60 Mg Capsule.Dr) 60 mg PO DAILY [facility] Last Admin: 03/18/24 08:17 Dose: 60 mg Empagliflozin (Empagliflozin 10 Mg Tablet) 10 mg PO DAILY [facility] Last Admin: 03/16/24 16:03 Dose: 10 mg Famotidine (Famotidine 20 Mg Tablet) 20 mg PO BID [facility] Last Admin: 03/18/24 08:15 Dose: 20 mg Folic Acid (Folic Acid 1 Mg Tablet) 1 mg PO DAILY [facility] Last Admin: 03/18/24 08:15 Dose: 1 mg Glucose (Glucose Gel 15 Gm Gel..Gram.) 15 gm PO Q15M PRN; Protocol PRN Reason: per Hypoglycemia Standing Ord. Doxycycline Hyclate 100 mg/ (Sodium Chloride) 250 mls @ 166.67 mls/hr IV BID [facility] Last Infusion: 03/18/24 09:55 Dose: Infused Dextrose (D10) 250 mls @ 750 mls/hr IV Q15M PRN; Protocol PRN Reason: per Hypoglycemia Standing Ord. Insulin Human Lispro (Insulin Lispro 100 Unit/Ml 3 Ml Vial) 0 unit SUBCUT QIDACHS [facility]; Protocol Last Admin: 03/18/24 11:51 Dose: 2 unit Lisinopril (Lisinopril 10 Mg Tablet) 10 mg PO DAILY [facility]; Protocol Last Admin: 03/18/24 08:15 Dose: 10 mg Magnesium Hydroxide (Milk Of Magnesia 30 Ml Oral.Susp) 30 ml PO DAILY PRN PRN Reason: Constipation Magnesium Oxide (Magnesium Oxide 400 Mg Tablet) 400 mg PO DAILY [facility] Last Admin: 03/18/24 08:17 Dose: 400 mg Melatonin (Melatonin 3 Mg Tablet) 6 mg PO BEDTIME PRN PRN Reason: Insomnia Metoprolol Tartrate (Metoprolol Tartrate 50 Mg Tablet) 50 mg PO BID [facility]; Protocol Last Admin: 03/18/24 08:16 Dose: 50 mg Multivitamins/Vitamin C (Multivitamin Tablet) 1 tab PO DAILY [facility] Last Admin: 03/18/24 08:16 Dose: 1 tab Naltrexone HCl (Naltrexone Hcl 50 Mg Tablet) 50 mg PO DAILY [facility] Last Admin: 03/18/24 08:16 Dose: 50 mg Ondansetron HCl (Ondansetron Hcl 4 Mg/2 Ml Vial) 4 mg IVPUSH Q8H PRN PRN Reason: Nausea and Vomiting Pharmacy Consult (Consult Rx Etoh Phenob Im/Po) 1 each MISCELLANE ONCE PRN; Protocol PRN Reason: Consult order Phenobarbital (Phenobarbital 30 Mg Tablet) 60 mg PO BID [facility] Last Admin: 03/17/24 10:18 Dose: Not Given Phenobarbital (Phenobarbital 30 Mg Tablet) 30 mg PO BID [facility] Stop: 03/20/24 21:01 Phenobarbital (Phenobarbital 30 Mg Tablet) 30 mg PO DAILY [facility] Stop: 03/22/24 09:01 Sodium Chloride (0.9 % Sodium Chloride Flush 3 Ml Syringe) 3 ml IVFLUSH QSHIFT [facility] Last Admin: 03/18/24 08:17 Dose: 3 ml Thiamine HCl (Thiamine Hcl 100 Mg Tablet) 100 mg PO DAILY [facility] Last Admin: 03/18/24 08:17 Dose: 100 mg Allergies Allergies Allergy/AdvReac Type Severity Reaction Status Date / Time vancomycin [VANCOMYCIN] Allergy Severe ANGIOEDEMA Verified 03/16/24 07:37 Sulfa (Sulfonamide Allergy Intermediate Rash Verified 03/16/24 07:37 Antibiotics) sulfamethoxazole Allergy rash Verified 03/16/24 07:37 [From Bactrim] trimethoprim [From Bactrim] Allergy Rash Verified 03/16/24 07:37 Assessment & Plan Assessment & Plan (1) Alcohol withdrawal hallucinosis: Status: Acute Code(s): F10.932 - Alcohol use, unspecified with withdrawal with perceptual disturbance Plan Mr. Francis is a 69 year-old male with hx of alcohol use who called EMS due to VH and paranoid. In the ED, BAL neg. He also reported not having a drink in more than 2 months. It is unclear how accurate his report of last drink is. He does seem to be presenting with s/s DTs and probably last alcohol use was much recent than that. No current VH/AH, but pt does appear somewhat confused. PLAN 1. recommend gathering information from brother or other family member to see accuracy of alcohol intake. 2. once completed phenobarb protocol and if continue memory/cog impairements can consult neurology r/o Korsokoff Dementia. 3. can use low dose antipsychotic risperidone 0.5mg po BID if notice return of VH/AH, monitor EKG, maintain Qtc<500ms, K>4, Mg>2. 4. reconsult psych as needed. Total time managing care of this patient today ____ minutes.
[2024-03-18 15:13] VITALS: BP 110/71; PULSE 67; RESP 18; TEMP 36.4; O2SAT 100
--- NOTE | 2024-03-18 16:38 | HO.WOUND ---
Wound Consult: Initial 69yr old?male admitted to [facility] on 03/16/24 - See progress notes and H&P for detailed history.? Wound consult placed for Left residual leg wound and right leg wounds.? Patient agreeable to assessment and photo documentation.? Patient was falling asleep while at bedside was not able to stay awake during consultation. He recalled the wounds to the right leg to be improving. The leg residual leg wounds he reports are from recent weight loss and loose fitting prosthesis. He reports he does follow up with outpt prosthesis specialist and he /she is aware of the poor fit at this time. Recommend patient to continue outpt follow up and to limit or discontinue use of leg prosthesis until healed and able to follow up outpt. Left Residual Leg Etiology: ?Diabetic wound ? Wound Bed: various lesions in full thickness tissue loss with adherent slough adherent to wound bed Drainage / Odor: foul odor noted whoever no s/s of infection at site itself - possibly due to poor cleaning Edges: ? irregular macerated edges Delmi wound: ?[place] intact tissue No Induration, Fluctuance or Warmth noted Pain: denies Goals of Treatment: ? Durafiber AG for moisture management Right Leg assessed for dry stable scabs in various stages of healing. No topical interventions needed at this time. Buttock and perianal areas - noted for mirrored red blanchable tissue - MASD. There is moist tissue with small scattered areas of partial thickness tissue loss. Recommend barrier use and low air loss pump. Recommendations: 1. Turn and Reposition every 2 hours and as needed for patient comfort.? Use pillows or wedges to support off loading positions. 2. Off Load all bony prominences with use of pillows and heel boots if needed.? Apply Preventative foams where needed. ? 3. Monitor for incontinence and moisture control, use barrier creams when needed for prevention and treatment. 4. Provide adequate and supplemental nutrition.? 5. Order low air loss mattress. 6. When applicable maintain blood glucose levels per Providers order. 7. Left Residual Leg - Cleanse with NS, pat dry. Apply skin prep to periwound. Apply Durafiber AG to wound bed cover with foam dressing, change every other day. 8. Buttock and perianal - Off Load Pressure - Cleanse with Ph balanced wipes, dry well. Apply barrier cream to area to protect from moisture and friction. Apply twice daily and PRN after episodes of incontinence. Re-consult wound care Nurse for wound deterioration or wound changes.
[2024-03-18 17:32] LABS: Glucose, Whole Blood 108 mg/dL (60-115)
[2024-03-18 19:14] VITALS: BP 130/74; PULSE 69; RESP 16; TEMP 36.2; O2SAT 100
[2024-03-18] MEDS: Atorvastatin Calcium 20 MG TABLET PO (20:24)
[2024-03-18] MEDS: Doxycycline Hyclate 100 MG in 0.9 % Sodium Chloride 250 ML 166.67 MG IV (20:25)
[2024-03-18 21:03] LABS: Glucose, Whole Blood 131 mg/dL (60-115)
[2024-03-18 23:47] VITALS: BP 148/75; PULSE 83; RESP 18; TEMP 36.1; O2SAT 100
[2024-03-19 03:58] VITALS: BP 147/80; PULSE 62; RESP 18; TEMP 36.1; O2SAT 97
[2024-03-19 07:18] LABS: Anion Gap 13 (12-20); Blood Urea Nitrogen 16 mg/dL (9-16); Calcium 9.2 mg/dL (8.4-10.2); Carbon Dioxide 26 mmol/L (22-29); Chloride 102 mmol/L (96-108); Creatinine Clr Calc Pharmacy 108.2; Estimated Glomerular Filt Rate > 60; Glucose Random 94 mg/dL (60-115); Potassium 4.4 mmol/L (3.3-5.1); Sodium 137 mmol/L (135-145)
[2024-03-19 07:23] VITALS: BP 159/103; PULSE 65; RESP 16; TEMP 36.2; O2SAT 100
[2024-03-19 07:36] LABS: Glucose, Whole Blood 57 mg/dL (60-115)
--- NOTE | 2024-03-19 07:43 | HE.PHANOTE ---
Doxy changed from iv to po per protocol.
[2024-03-19] MEDS: Magnesium Oxide 400 MG TABLET PO (07:51)
[2024-03-19] MEDS: Ascorbic Acid 500 MG TABLET PO (07:51)
[2024-03-19] MEDS: Digoxin 0.125 MG TABLET PO (07:51)
[2024-03-19] MEDS: busPIRone HCl 10 MG TABLET PO ×2 (07:51→21:36)
[2024-03-19] MEDS: Folic Acid 1 MG TABLET PO (07:51)
[2024-03-19] MEDS: Naltrexone HCl 50 MG TABLET PO (07:51)
[2024-03-19] MEDS: buPROPion HCl XL 150 MG TAB.ER.24H PO (07:51)
[2024-03-19] MEDS: Thiamine HCL 100 MG TABLET PO (07:51)
[2024-03-19] MEDS: dilTIAZem HCL CD 180 MG CAP.ER.24H PO (07:52)
[2024-03-19] MEDS: Multivitamin TABLET 1 TAB PO (07:52)
[2024-03-19] MEDS: Dabigatran Etexilate Mesylate 150 MG CAPSULE PO ×2 (07:52→20:24)
[2024-03-19] MEDS: allopurinoL 100 MG TABLET 200 MG PO (07:52)
[2024-03-19] MEDS: DULoxetine HCl 60 MG CAPSULE.DR PO (07:52)
[2024-03-19] MEDS: Doxycycline Monohydrate 100 MG CAPSULE PO ×2 (07:52→20:25)
[2024-03-19] MEDS: Famotidine 20 MG TABLET PO ×2 (07:52→20:25)
[2024-03-19] MEDS: Metoprolol Tartrate 50 MG TABLET PO ×2 (07:52→20:24)
[2024-03-19] MEDS: lisinopriL 10 MG TABLET PO (07:52)
[2024-03-19] MEDS: 0.9 % Sodium Chloride Flush 3 ML SYRINGE IVFLUSH ×3 (07:53→20:27)
[2024-03-19] MEDS: PHENobarbitaL 30 MG TABLET PO (07:53)
[2024-03-19 08:01] LABS: Glucose, Whole Blood 52 mg/dL (60-115)
[2024-03-19 08:26] LABS: Glucose, Whole Blood 60 mg/dL (60-115)
[2024-03-19 08:26] LABS: Glucose, Whole Blood 102 mg/dL (60-115)
[2024-03-19 09:23] LABS: Folate 13.9 ng/mL (> or = 4.0); Vitamin B12 542 pg/mL (200-900)
--- NOTE | 2024-03-19 10:56 | P.PNIM_ITS ---
Subjective Subjective Date of Service: 03/19/24 Interval History: seen and examined this AM improving mentation denies any further AH/VH d/w him re: alcohol intake; states its been about 2 months, reports drinking in January but not in the recent weeks reports he has a follow up with his outpatient providers shortly after the new year; reports being on naltrexone, with last prescription end of January AAOx3 Review of Systems Negative except HPI/interval history. Physical Exam 2 Vital Signs: Vital Signs: Last Vital Signs Temp 97.1 F 03/19/24 07:23 Pulse 65 03/19/24 07:23 Resp 16 03/19/24 07:23 BP 159/103 H 03/19/24 07:23 Pulse Ox 100 03/19/24 07:23 O2 Del Method Room Air 03/19/24 07:23 O2 Flow Rate 1 03/19/24 03:58 BMI result Body Mass Index 26.0 Const: Other: General - no acute distress, appears comfortable Cardiovascular - regular rate and rhythm, S1-S2 Lungs - normal respiratory effort, clear to auscultation bilaterally, no wheezing Abdomen - soft, nontender, no rebound or guarding Extremities - L BKA stump with what appears to be local infection; no significant surrounding erythema to suggest acute cellulitis Neuro - awake and alert, no focal deficits; aaox3; has insight into his drinking and medical conditions Objective Data Active Medications Allopurinol (Allopurinol 100 Mg Tablet) 200 mg PO DAILY [facility] Last Admin: 03/19/24 07:52 Dose: 200 mg Documented By: JAZMIN Ascorbic Acid (Ascorbic Acid 500 Mg Tablet) 500 mg PO DAILY [facility] Last Admin: 03/19/24 07:51 Dose: 500 mg Documented By: JAZMIN Atorvastatin Calcium (Atorvastatin Calcium 20 Mg Tablet) 20 mg PO BEDTIME [facility] Last Admin: 03/18/24 20:24 Dose: 20 mg Documented By: LAMIN Bupropion HCl (Bupropion Hcl Xl 150 Mg Tab.Er.24h) 150 mg PO DAILY [facility] Last Admin: 03/19/24 07:51 Dose: 150 mg Documented By: JAZMIN Buspirone HCl (Buspirone Hcl 10 Mg Tablet) 10 mg PO BID [facility] Last Admin: 03/19/24 07:51 Dose: 10 mg Documented By: JAZMIN Calcium Carbonate (Calcium Carbonate 750 Mg Tab.Chew) 750 mg PO Q4H PRN PRN Reason: Heartburn Dabigatran (Dabigatran Etexilate Mesylate 150 Mg Capsule) 150 mg PO BID [facility] Last Admin: 03/19/24 07:52 Dose: 150 mg Documented By: JAZMIN Digoxin (Digoxin 0.125 Mg Tablet) 0.125 mg PO DAILY [facility]; Protocol Last Admin: 03/19/24 07:51 Dose: 0.125 mg Documented By: JAZMIN Diltiazem HCl (Diltiazem Hcl Cd 180 Mg Cap.Er.24h) 180 mg PO DAILY [facility]; Protocol Last Admin: 03/19/24 07:52 Dose: 180 mg Documented By: JAZMIN Doxycycline Monohydrate (Doxycycline Monohydrate 100 Mg Capsule) 100 mg PO Q12H [facility] Last Admin: 03/19/24 07:52 Dose: 100 mg Documented By: JAZMIN Duloxetine HCl (Duloxetine Hcl 60 Mg Capsule.Dr) 60 mg PO DAILY [facility] Last Admin: 03/19/24 07:52 Dose: 60 mg Documented By: JAZMIN Empagliflozin (Empagliflozin 10 Mg Tablet) 10 mg PO DAILY [facility] Last Admin: 03/16/24 16:03 Dose: 10 mg Documented By: MOHAMUD Famotidine (Famotidine 20 Mg Tablet) 20 mg PO BID [facility] Last Admin: 03/19/24 07:52 Dose: 20 mg Documented By: JAZMIN Folic Acid (Folic Acid 1 Mg Tablet) 1 mg PO DAILY [facility] Last Admin: 03/19/24 07:51 Dose: 1 mg Documented By: JAZMIN Glucose (Glucose Gel 15 Gm Gel..Gram.) 15 gm PO Q15M PRN; Protocol PRN Reason: per Hypoglycemia Standing Ord. Dextrose (D10) 250 mls @ 750 mls/hr IV Q15M PRN; Protocol PRN Reason: per Hypoglycemia Standing Ord. Insulin Human Lispro (Insulin Lispro 100 Unit/Ml 3 Ml Vial) 0 unit SUBCUT QIDACHS [facility]; Protocol Last Admin: 03/19/24 07:43 Dose: Not Given Documented By: JAZMIN Non-Admin Reason: No Insulin Coverage Lisinopril (Lisinopril 10 Mg Tablet) 10 mg PO DAILY [facility]; Protocol Last Admin: 03/19/24 07:52 Dose: 10 mg Documented By: JAZMIN Magnesium Hydroxide (Milk Of Magnesia 30 Ml Oral.Susp) 30 ml PO DAILY PRN PRN Reason: Constipation Magnesium Oxide (Magnesium Oxide 400 Mg Tablet) 400 mg PO DAILY [facility] Last Admin: 03/19/24 07:51 Dose: 400 mg Documented By: JAZMIN Melatonin (Melatonin 3 Mg Tablet) 6 mg PO BEDTIME PRN PRN Reason: Insomnia Metoprolol Tartrate (Metoprolol Tartrate 50 Mg Tablet) 50 mg PO BID [facility]; Protocol Last Admin: 03/19/24 07:52 Dose: 50 mg Documented By: JAZMIN Multivitamins/Vitamin C (Multivitamin Tablet) 1 tab PO DAILY [facility] Last Admin: 03/19/24 07:52 Dose: 1 tab Documented By: JAZMIN Naltrexone HCl (Naltrexone Hcl 50 Mg Tablet) 50 mg PO DAILY [facility] Last Admin: 03/19/24 07:51 Dose: 50 mg Documented By: JAZMIN Ondansetron HCl (Ondansetron Hcl 4 Mg/2 Ml Vial) 4 mg IVPUSH Q8H PRN PRN Reason: Nausea and Vomiting Pharmacy Consult (Consult Rx Etoh Phenob Im/Po) 1 each MISCELLANE ONCE PRN; Protocol PRN Reason: Consult order Phenobarbital (Phenobarbital 30 Mg Tablet) 60 mg PO BID [facility] Last Admin: 03/17/24 10:18 Dose: Not Given Documented By: HERO Non-Admin Reason: Physician Held Med Phenobarbital (Phenobarbital 30 Mg Tablet) 30 mg PO BID [facility] Stop: 03/20/24 21:01 Last Admin: 03/19/24 07:53 Dose: 30 mg Documented By: JAZMIN Phenobarbital (Phenobarbital 30 Mg Tablet) 30 mg PO DAILY [facility] Stop: 03/22/24 09:01 Sodium Chloride (0.9 % Sodium Chloride Flush 3 Ml Syringe) 3 ml IVFLUSH QSHIFT [facility] Last Admin: 03/19/24 07:53 Dose: 3 ml Documented By: JAZMIN Thiamine HCl (Thiamine Hcl 100 Mg Tablet) 100 mg PO DAILY [facility] Last Admin: 03/19/24 07:51 Dose: 100 mg Documented By: JAZMIN Labs 03/17/24 05:52 03/19/24 06:19 Labs: Laboratory Results - last 24 hr 03/18/24 03/18/24 03/18/24 11:03 16:04 20:27 Anion Gap Estim Creat Clear Calc Estimated GFR POC Glucose 152 H 108 131 H Random Glucose Calcium Vitamin B12 Folate 03/19/24 03/19/24 03/19/24 06:19 07:32 07:57 Anion Gap 13 Estim Creat Clear Calc 108.2 Estimated GFR > 60 POC Glucose 57 L* 52 L* Random Glucose 94 Calcium 9.2 Vitamin B12 Folate 03/19/24 03/19/24 03/19/24 08:13 08:20 08:22 Anion Gap Estim Creat Clear Calc Estimated GFR POC Glucose 60 102 Random Glucose Calcium Vitamin B12 542 Folate 13.9 Microbiology Microbiology Results: Microbiology 03/17/24 13:20 Gram Stain - Final Leg - Left Routine Culture - Preliminary Staphylococcus aureus Gram negative radha 03/17/24 10:28 Blood Culture - Preliminary Blood - Venous No growth after 24 hours. 03/17/24 10:28 Blood Culture - Preliminary Blood - Venous No growth after 24 hours. Assessment and Plan (1) ETOH abuse: Status: Acute (2) Alcohol withdrawal: Status: Acute Plan Pt is a 69-year-old male with a PMH significant for?CAD, persistent AFib on Pradaxa, chronic osteomyelitis s/p left BKA, HTN, HLD, alcohol use disorder w/hx of withdrawal, [id number] type 2 diabetes, splenic marginal zone lymphoma, gout, BPH, and mood disorder who presents to the ED for evaluation of visual hallucinations. Patient will be admitted to the hospital medical floor for treatment and further evaluation of visual hallucinations concerning for acute alcohol withdrawal. Question Acute alcohol withdrawal denies EtOH x 2 months; empirically started on phenobarb Tremors, diaphoresis, increased anxiety,visual hallucinations - will consult psych for input --> see their note for full details; no further issues reported by pt Continue phenobarb protocol Daily multivitamin, folic acid, thiamine Famotidine Addiction medicine consult - seen by analog device designer -- see notes, has outpt resources Monitor on telemetry Chronic diabetic wounds left stump wound with purulent drainage and erythema spa assistant manager appreciated -- see notes for recs PVD bilateral LE disoloration distant pedal pulse (RLE), cool check arterial duplex to bilateral LE - mild stenosis; should have outpt f/u Hypomagnesemia improved with repletion Left shoulder fracture Reports will undergo shoulder replacement surgery once chronic wounds are healed F/U outpatient with ortho Persistent AFib Continue Pradaxa, digoxin, diltiazem HTN Continue lisinopril HLD Continue statin Non insulin-dependent type 2 diabetes POC have been low off medications on multiple meds at baseline -- A1C 5.3 now and 5.2 in Nov -- given low/normal glucose, stop DM meds and follow up outpt weakness pt eval Full Code DVT Prophylaxis: On Pradaxa Quality Stroke Does the patient have a stroke diagnosis?: No VTE Prior VTE?: No VTE Risk Level:: Medical - moderate - high VTE Device Contraindication: Treatment Not Indicated VTE Drug Contraindication: N/A - Med Ordered
[2024-03-19 10:59] VITALS: BP 102/55; PULSE 58; RESP 16; TEMP 36; O2SAT 100
[2024-03-19 11:12] LABS: Glucose, Whole Blood 167 mg/dL (60-115)
[2024-03-19] MEDS: Insulin Lispro 100 UNIT/ML 3 ML VIAL SUBCUT (11:32)
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
--- NOTE | 2024-03-19 12:54 | MHC.CM.PN ---
EMR REVIEWED, PER HOSPITALIST PT CAN BE MEDICALLY CLEARED FOR DC, P.T. REC'S STR AND BROAD REF PLACED W/PT PERMISSION, PT PREFERS TO STAY CLOSE TO [facility] AND DOES NOT WANT TO RETURN TO [facility] WHERE HE HAS BEEN IN THE PAST, [facility] INTERESTED HOWEVER CM STILL AWAITING BED OFFER AND WILL CONT TO FOLLOW.
[2024-03-19 15:36] VITALS: BP 97/55; PULSE 66; RESP 18; TEMP 36.3; O2SAT 100
[2024-03-19 16:18] LABS: Glucose, Whole Blood 103 mg/dL (60-115)
[2024-03-19 20:00] VITALS: BP 149/73; PULSE 63; RESP 20; TEMP 36.6; O2SAT 100
[2024-03-19 20:04] LABS: Glucose, Whole Blood 92 mg/dL (60-115)
[2024-03-19] MEDS: Atorvastatin Calcium 20 MG TABLET PO (20:24)
[2024-03-19 23:33] VITALS: BP 132/76; PULSE 71; RESP 16; TEMP 36.4; O2SAT 100
[2024-03-20] VITALS (7 sets, daily range): BP systolic 117–163; BP diastolic 62–104; PULSE 61–74; RESP 16–18; TEMP 36–36.9; O2SAT 97–100
--- NOTE | 2024-03-20 06:51 | PM.EVENT ---
Event Note Date of Service: 03/19/24 Event Note: Mottling of the skin is noted on the lower extremities and hands. The patient has a history of peripheral vascular disease and reports that this occurs frequently, resolving on its own. He states it comes and goes and mentions that an RN had previously seen a similar presentation in him. He has no other complaints. Time Spent With Patient Time: Total time managing care of this patient today ____ minutes.
--- NOTE | 2024-03-20 07:39 | PC.NURSE ---
low POC this AM. pt is awake and alert, eating bfast and given juice/snacks
[2024-03-20 07:41] LABS: Glucose, Whole Blood 57 mg/dL (60-115)
[2024-03-20 08:07] LABS: Glucose, Whole Blood 74 mg/dL (60-115)
[2024-03-20] MEDS: Magnesium Oxide 400 MG TABLET PO (09:55)
[2024-03-20] MEDS: Digoxin 0.125 MG TABLET PO (09:55)
[2024-03-20] MEDS: Dabigatran Etexilate Mesylate 150 MG CAPSULE PO ×2 (09:55→23:14)
[2024-03-20] MEDS: PHENobarbitaL 30 MG TABLET PO ×2 (09:55→23:14)
[2024-03-20] MEDS: Naltrexone HCl 50 MG TABLET PO (09:55)
[2024-03-20] MEDS: buPROPion HCl XL 150 MG TAB.ER.24H PO (09:55)
[2024-03-20] MEDS: busPIRone HCl 10 MG TABLET PO ×2 (09:55→23:13)
[2024-03-20] MEDS: allopurinoL 100 MG TABLET 200 MG PO (09:55)
[2024-03-20] MEDS: Folic Acid 1 MG TABLET PO (09:56)
[2024-03-20] MEDS: dilTIAZem HCL CD 180 MG CAP.ER.24H PO (09:56)
[2024-03-20] MEDS: DULoxetine HCl 60 MG CAPSULE.DR PO (09:56)
[2024-03-20] MEDS: Ascorbic Acid 500 MG TABLET PO (09:56)
[2024-03-20] MEDS: Doxycycline Monohydrate 100 MG CAPSULE PO ×2 (09:56→23:13)
[2024-03-20] MEDS: Metoprolol Tartrate 50 MG TABLET PO ×2 (09:56→23:21)
[2024-03-20] MEDS: Famotidine 20 MG TABLET PO ×2 (09:56→23:13)
[2024-03-20] MEDS: Multivitamin TABLET 1 TAB PO (09:56)
[2024-03-20] MEDS: lisinopriL 10 MG TABLET PO (09:56)
[2024-03-20] MEDS: Thiamine HCL 100 MG TABLET PO (09:56)
[2024-03-20 10:00] LABS: Glucose, Whole Blood 91 mg/dL (60-115)
[2024-03-20 10:15] LABS: Adenovirus F 40/41 Not Detected (Not Detect.); Astrovirus Not Detected (Not Detect.); Campylobacter Not Detected (Not Detect.); Cryptosporidium Not Detected (Not Detect.); Cyclospora cayetanensis Not Detected (Not Detect.); E. coli EAEC Not Detected (Not Detect.); E. coli EPEC Not Detected (Not Detect.); E. coli ETEC Not Detected (Not Detect.); E. coli STEC Not Detected (Not Detect.); Entamoeba histolytica Not Detected (Not Detect.); Giardia lamblia Not Detected (Not Detect.); Norovirus GI/GII Not Detected (Not Detect.); Plesiomonas shigelloides Not Detected (Not Detect.); Rotavirus A Not Detected (Not Detect.); Salmonella Not Detected (Not Detect.); Sapovirus Not Detected (Not Detect.); Shigella sp./EIEC Not Detected (Not Detect.); Vibrio Not Detected (Not Detect.); Vibrio Cholerae Not Detected (Not Detect.); Yersinia enterocolitica Not Detected (Not Detect.)
[2024-03-20 11:21] LABS: Glucose, Whole Blood 160 mg/dL (60-115)
[2024-03-20] MEDS: Insulin Lispro 100 UNIT/ML 3 ML VIAL SUBCUT (11:35)
--- NOTE | 2024-03-20 13:44 | P.PNIM_ITS ---
Subjective Subjective Date of Service: 03/20/24 Interval History: Complaining of sweating and lightheadedness noted to have low blood sugars 57 this morning, improved with snacks. Denies nausea vomiting, no abdominal pain, no fevers, offers no other complaints. 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 Review of Systems All other system reviewed and are negative Physical Exam 2 Vital Signs: Vital Signs: Last Vital Signs Temp 96.8 F 03/20/24 11:05 Pulse 68 03/20/24 11:05 Resp 16 03/20/24 11:05 BP 117/66 03/20/24 11:05 Pulse Ox 97 03/20/24 11:05 O2 Del Method Room Air 03/20/24 11:05 O2 Flow Rate 1 03/19/24 03:58 BMI result Body Mass Index 26.0 Const: Other: General resting comfortably in no acute distress. Neck no JVD. CVS regular rate rhythm, Respiratory lungs clear to auscultation, no respiratory distress, no wheeze, no rhonchi. Gastrointestinal abdomen soft, nontender, bowel sounds audible, no guarding , no rigidity. 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 Objective Data Active Medications Allopurinol (Allopurinol 100 Mg Tablet) 200 mg PO DAILY [facility] Last Admin: 03/20/24 09:55 Dose: 200 mg Documented By: BAILEY Ascorbic Acid (Ascorbic Acid 500 Mg Tablet) 500 mg PO DAILY [facility] Last Admin: 03/20/24 09:56 Dose: 500 mg Documented By: BAILEY Atorvastatin Calcium (Atorvastatin Calcium 20 Mg Tablet) 20 mg PO BEDTIME [facility] Last Admin: 03/19/24 20:24 Dose: 20 mg Documented By: REN Bupropion HCl (Bupropion Hcl Xl 150 Mg Tab.Er.24h) 150 mg PO DAILY [facility] Last Admin: 03/20/24 09:55 Dose: 150 mg Documented By: BAILEY Buspirone HCl (Buspirone Hcl 10 Mg Tablet) 10 mg PO BID [facility] Last Admin: 03/20/24 09:55 Dose: 10 mg Documented By: BAILEY Calcium Carbonate (Calcium Carbonate 750 Mg Tab.Chew) 750 mg PO Q4H PRN PRN Reason: Heartburn Dabigatran (Dabigatran Etexilate Mesylate 150 Mg Capsule) 150 mg PO BID [facility] Last Admin: 03/20/24 09:55 Dose: 150 mg Documented By: BAILEY Digoxin (Digoxin 0.125 Mg Tablet) 0.125 mg PO DAILY [facility]; Protocol Last Admin: 03/20/24 09:55 Dose: 0.125 mg Documented By: BAILEY Diltiazem HCl (Diltiazem Hcl Cd 180 Mg Cap.Er.24h) 180 mg PO DAILY [facility]; Protocol Last Admin: 03/20/24 09:56 Dose: 180 mg Documented By: BAILEY Doxycycline Monohydrate (Doxycycline Monohydrate 100 Mg Capsule) 100 mg PO Q12H [facility] Last Admin: 03/20/24 09:56 Dose: 100 mg Documented By: BAILEY Duloxetine HCl (Duloxetine Hcl 60 Mg Capsule.Dr) 60 mg PO DAILY [facility] Last Admin: 03/20/24 09:56 Dose: 60 mg Documented By: BAILEY Empagliflozin (Empagliflozin 10 Mg Tablet) 10 mg PO DAILY [facility] Last Admin: 03/16/24 16:03 Dose: 10 mg Documented By: MOHAMUD Famotidine (Famotidine 20 Mg Tablet) 20 mg PO BID [facility] Last Admin: 03/20/24 09:56 Dose: 20 mg Documented By: BAILEY Folic Acid (Folic Acid 1 Mg Tablet) 1 mg PO DAILY [facility] Last Admin: 03/20/24 09:56 Dose: 1 mg Documented By: BAILEY Glucose (Glucose Gel 15 Gm Gel..Gram.) 15 gm PO Q15M PRN; Protocol PRN Reason: per Hypoglycemia Standing Ord. Dextrose (D10) 250 mls @ 750 mls/hr IV Q15M PRN; Protocol PRN Reason: per Hypoglycemia Standing Ord. Insulin Human Lispro (Insulin Lispro 100 Unit/Ml 3 Ml Vial) 0 unit SUBCUT QIDACHS [facility]; Protocol Last Admin: 03/20/24 11:35 Dose: 2 unit Documented By: BAILEY Lisinopril (Lisinopril 10 Mg Tablet) 10 mg PO DAILY [facility]; Protocol Last Admin: 03/20/24 09:56 Dose: 10 mg Documented By: BAILEY Magnesium Hydroxide (Milk Of Magnesia 30 Ml Oral.Susp) 30 ml PO DAILY PRN PRN Reason: Constipation Magnesium Oxide (Magnesium Oxide 400 Mg Tablet) 400 mg PO DAILY [facility] Last Admin: 03/20/24 09:55 Dose: 400 mg Documented By: BAILEY Melatonin (Melatonin 3 Mg Tablet) 6 mg PO BEDTIME PRN PRN Reason: Insomnia Metoprolol Tartrate (Metoprolol Tartrate 50 Mg Tablet) 50 mg PO BID [facility]; Protocol Last Admin: 03/20/24 09:56 Dose: 50 mg Documented By: BAILEY Multivitamins/Vitamin C (Multivitamin Tablet) 1 tab PO DAILY [facility] Last Admin: 03/20/24 09:56 Dose: 1 tab Documented By: BAILEY Naltrexone HCl (Naltrexone Hcl 50 Mg Tablet) 50 mg PO DAILY [facility] Last Admin: 03/20/24 09:55 Dose: 50 mg Documented By: BAILEY Ondansetron HCl (Ondansetron Hcl 4 Mg/2 Ml Vial) 4 mg IVPUSH Q8H PRN PRN Reason: Nausea and Vomiting Pharmacy Consult (Consult Rx Etoh Phenob Im/Po) 1 each MISCELLANE ONCE PRN; Protocol PRN Reason: Consult order Phenobarbital (Phenobarbital 30 Mg Tablet) 60 mg PO BID [facility] Last Admin: 03/17/24 10:18 Dose: Not Given Documented By: HERO Non-Admin Reason: Physician Held Med Phenobarbital (Phenobarbital 30 Mg Tablet) 30 mg PO BID [facility] Stop: 03/20/24 21:01 Last Admin: 03/20/24 09:55 Dose: 30 mg Documented By: BAILEY Phenobarbital (Phenobarbital 30 Mg Tablet) 30 mg PO DAILY [facility] Stop: 03/22/24 09:01 Sodium Chloride (0.9 % Sodium Chloride Flush 3 Ml Syringe) 3 ml IVFLUSH QSHIFT [facility] Last Admin: 03/20/24 07:10 Dose: Not Given Documented By: BAILEY Non-Admin Reason: Previously Administered Thiamine HCl (Thiamine Hcl 100 Mg Tablet) 100 mg PO DAILY [facility] Last Admin: 03/20/24 09:56 Dose: 100 mg Documented By: BAILEY Labs 03/17/24 05:52 03/19/24 06:19 Labs: Laboratory Results - last 24 hr 12/03/19/24 03/19/24 14:15 16:14 19:29 POC Glucose 103 92 Stl C. cayetanensis PCR Not Detected Stool Rotavirus A PCR Not Detected Stl Adenov F 40/41 PCR Not Detected Stool Astrovirus (PCR) Not Detected Stool Campylobacter PCR Not Detected Stool Cryptosporidium PCR Not Detected Stl Sh Tox Pr E STEC PCR Not Detected Stool E coli O157 PCR Not applicable Stl Enterotoxigenic E PCR Not Detected Stool EPEC (PCR) Not Detected Stool EAEC (PCR) Not Detected Stl E. histolytica PCR Not Detected Stool Giardia Lamblia PCR Not Detected Stl P. shigelloides PCR Not Detected Stool Salmonella PCR Not Detected Stool Sapovirus (PCR) Not Detected Stl Shigella/EIEC PCR Not Detected St Y.enterocolitica PCR Not Detected Stool Vibrio (PCR) Not Detected Stl Vibrio cholerae PCR Not Detected Stl Norovirus GI/GII PCR Not Detected 03/20/24 03/20/24 03/20/24 07:34 08:03 09:54 POC Glucose 57 L* 74 91 Stl C. cayetanensis PCR Stool Rotavirus A PCR Stl Adenov F 40/41 PCR Stool Astrovirus (PCR) Stool Campylobacter PCR Stool Cryptosporidium PCR Stl Sh Tox Pr E STEC PCR Stool E coli O157 PCR Stl Enterotoxigenic E PCR Stool EPEC (PCR) Stool EAEC (PCR) Stl E. histolytica PCR Stool Giardia Lamblia PCR Stl P. shigelloides PCR Stool Salmonella PCR Stool Sapovirus (PCR) Stl Shigella/EIEC PCR St Y.enterocolitica PCR Stool Vibrio (PCR) Stl Vibrio cholerae PCR Stl Norovirus GI/GII PCR 03/20/24 11:12 POC Glucose 160 H Stl C. cayetanensis PCR Stool Rotavirus A PCR Stl Adenov F 40/41 PCR Stool Astrovirus (PCR) Stool Campylobacter PCR Stool Cryptosporidium PCR Stl Sh Tox Pr E STEC PCR Stool E coli O157 PCR Stl Enterotoxigenic E PCR Stool EPEC (PCR) Stool EAEC (PCR) Stl E. histolytica PCR Stool Giardia Lamblia PCR Stl P. shigelloides PCR Stool Salmonella PCR Stool Sapovirus (PCR) Stl Shigella/EIEC PCR St Y.enterocolitica PCR Stool Vibrio (PCR) Stl Vibrio cholerae PCR Stl Norovirus GI/GII PCR Microbiology Microbiology Results: Microbiology 03/17/24 13:20 Gram Stain - Final Leg - Left Routine Culture - Final Staphylococcus aureus Klebsiella oxytoca Enterobacter cloacae complex 03/17/24 10:28 Blood Culture - Preliminary Blood - Venous No growth after 48 hours. 03/17/24 10:28 Blood Culture - Preliminary Blood - Venous No growth after 48 hours. Assessment and Plan (1) Chronic wound: Status: Acute (2) Alcohol withdrawal hallucinosis: Status: Acute Plan 69-year-old male with a PMH significant for?CAD, persistent AFib on Pradaxa, chronic osteomyelitis s/p left BKA, HTN, HLD, alcohol use disorder w/hx of withdrawal, [id number] type 2 diabetes, splenic marginal zone lymphoma, gout, BPH, and mood disorder who presents to the ED for evaluation of visual hallucinations. Patient will be admitted to the hospital medical floor for treatment and further evaluation of visual hallucinations concerning for acute alcohol withdrawal. Question Acute alcohol withdrawal denies EtOH x 2 months; empirically started on phenobarb Presented with Tremors, diaphoresis, increased anxiety,visual hallucinations - treated with phenobarb for suspected alcohol withdrawal, mentation improved no further hallucination Seen by psychiatry unlikely cause of hallucination was alcohol abuse and dependence Continue phenobarb protocol Daily multivitamin, folic acid, thiamine Famotidine Addiction medicine consult - seen by invoice classification clerk -- outpt resources provided Monitor on telemetry Chronic diabetic wounds left stump wound with purulent drainage and erythema resolved [employer]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 -- see notes for recs PVD bilateral LE disoloration distant pedal pulse (RLE), cool check arterial duplex to bilateral LE - mild stenosis; should have outpt f/u Hypomagnesemia improved with repletion Left shoulder fracture Reports will undergo shoulder replacement surgery once chronic wounds are healed F/U outpatient with ortho Persistent AFib Continue Pradaxa, digoxin, diltiazem HTN Continue lisinopril HLD Continue statin Non insulin-dependent type 2 diabetes Noted to have hypoglycemia blood sugars 57 this morning improved with snack hemoglobin A1c 5.3 will DC Farxiga/monitor blood sugars, DC insulin sliding scale. weakness Seen by PT they recommend short-term rehab. Full Code DVT Prophylaxis: On Pradaxa Quality Stroke Does the patient have a stroke diagnosis?: No VTE Prior VTE?: No VTE Risk Level:: Medical - moderate - high VTE Device Contraindication: Treatment Not Indicated VTE Drug Contraindication: N/A - Med Ordered
[2024-03-20 16:21] LABS: Glucose, Whole Blood 158 mg/dL (60-115)
[2024-03-20 20:53] LABS: Glucose, Whole Blood 113 mg/dL (60-115)
[2024-03-20] MEDS: Atorvastatin Calcium 20 MG TABLET PO (23:13)
[2024-03-21] VITALS (9 sets, daily range): BP systolic 105–151; BP diastolic 57–87; PULSE 35–66; RESP 16–20; TEMP 36.2–36.4; O2SAT 95–100
[2024-03-21 08:11] LABS: Glucose, Whole Blood 75 mg/dL (60-115)
[2024-03-21] MEDS: Digoxin 0.125 MG TABLET PO (08:27)
[2024-03-21] MEDS: Dabigatran Etexilate Mesylate 150 MG CAPSULE PO ×2 (08:27→21:26)
[2024-03-21] MEDS: busPIRone HCl 10 MG TABLET PO ×2 (08:27→21:25)
[2024-03-21] MEDS: DULoxetine HCl 60 MG CAPSULE.DR PO (08:27)
[2024-03-21] MEDS: Doxycycline Monohydrate 100 MG CAPSULE PO ×2 (08:29→21:26)
[2024-03-21] MEDS: Magnesium Oxide 400 MG TABLET PO (08:29)
[2024-03-21] MEDS: Multivitamin TABLET 1 TAB PO (08:29)
[2024-03-21] MEDS: allopurinoL 100 MG TABLET 200 MG PO (08:29)
[2024-03-21] MEDS: dilTIAZem HCL CD 180 MG CAP.ER.24H PO (08:29)
[2024-03-21] MEDS: buPROPion HCl XL 150 MG TAB.ER.24H PO (08:29)
[2024-03-21] MEDS: Naltrexone HCl 50 MG TABLET PO (08:29)
[2024-03-21] MEDS: Famotidine 20 MG TABLET PO ×2 (08:29→21:26)
[2024-03-21] MEDS: Ascorbic Acid 500 MG TABLET PO (08:30)
[2024-03-21] MEDS: Metoprolol Tartrate 50 MG TABLET PO (08:30)
[2024-03-21] MEDS: PHENobarbitaL 30 MG TABLET PO (08:30)
[2024-03-21] MEDS: Folic Acid 1 MG TABLET PO (08:30)
[2024-03-21] MEDS: Thiamine HCL 100 MG TABLET PO (08:30)
[2024-03-21] MEDS: lisinopriL 10 MG TABLET PO (08:30)
--- NOTE | 2024-03-21 11:02 | ECG_ITS ---
Test Reason : afib/slow Blood Pressure : / mmHG Vent. Rate : 046 BPM Atrial Rate : 000 BPM P-R Int : 000 ms QRS Dur : 084 ms QT Int : 440 ms P-R-T Axes : 000 -20 -05 degrees QTc Int : 385 ms Atrial fibrillation with slow ventricular response Inferior infarct , age undetermined Anteroseptal infarct (cited on or before 02-MAR-2016) Abnormal ECG When compared with ECG of 19-DEC-2023 14:58, Vent. rate has decreased BY 41 BPM QT has shortened Referred By: Estela Bragg Electronically Signed By:Lennox Milan
[2024-03-21 11:05] LABS: Glucose, Whole Blood 88 mg/dL (60-115)
--- NOTE | 2024-03-21 11:13 | PM.CNCAR ---
History of Present Illness History of Present Illness Date of Service: 03/21/24 Requesting physician: Estela Bragg Chief complaint: Alcohol Withdrawal Hallucinations, Afib Narrative: [age] year gentleman who is a patient of Dr. Godoy and has persistent atrial fibrillation on diltiazem, metoprolol and digoxin. He has background of alcoholism, diabetes and previous amputation left leg. We have been asked to see him for bradycardia. Overall his heart rates are 50s to 60s but he has been noticed to be in 30s by the medicine team. Unclear whether this was at nighttime or not. He is denying any symptoms currently. No dizziness or lightheadedness. No syncope. He is taking dabigatran. [facility] Past Medical History Medical History Rosacea Annual physical exam Persistent atrial fibrillation Orthostatic hypotension Lymphoma Depression Essential hypertension Hyperlipidemia LDL goal <100 Obesity due to excess calories BMI 30.0-30.9,adult DM (diabetes mellitus) ETOH abuse BPH associated with nocturia CAD (coronary artery disease) Long-term current use of intravenous immunoglobulin (IVIG) GERD (gastroesophageal reflux disease) Hypogammaglobulinemia Diabetic eye exam Adjustment disorder PAF (paroxysmal atrial fibrillation) Gout Chronic osteomyelitis Splenic marginal zone b-cell lymphoma EMIL (obstructive sleep apnea) Family History Family History Father Diabetes Mother Liver cancer Maternal Grandfather CVD (cardiovascular disease) Brother Myocardial infarction Surgical History Surgical History Status post below-knee amputation of left lower extremity Osteomyelitis Osteomyelitis History of esophagogastroduodenoscopy (EGD) History of colonoscopy History of bunionectomy History of cardiac cath Social History Social History Household Members: Unknown / Unable to assess Housing: Unknown / Unable to assess Alcohol intake: former Year quit: 2019 Comment: sitter in room / video Patient Tobacco Use Status: Never used Tobacco e-Cigarette/Vaping Use: Never Used Second Hand Smoke Exposure: No Advance Directives Date on File: 10/10/23 service: No Current occupational status: employed 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 Cognitive needs: No Hearing needs: No Vision needs: Yes Meds Allergies Allergy/AdvReac Type Severity Reaction Status Date / Time vancomycin [VANCOMYCIN] Allergy Severe ANGIOEDEMA Verified 03/16/24 07:37 Sulfa (Sulfonamide Allergy Intermediate Rash Verified 03/16/24 07:37 Antibiotics) sulfamethoxazole Allergy rash Verified 03/16/24 07:37 [From Bactrim] trimethoprim [From Bactrim] Allergy Rash Verified 03/16/24 07:37 Active Medications: Current Medications Allopurinol (Allopurinol 100 Mg Tablet) 200 mg PO DAILY [facility] Last Admin: 03/21/24 08:29 Dose: 200 mg Ascorbic Acid (Ascorbic Acid 500 Mg Tablet) 500 mg PO DAILY [facility] Last Admin: 03/21/24 08:30 Dose: 500 mg Atorvastatin Calcium (Atorvastatin Calcium 20 Mg Tablet) 20 mg PO BEDTIME [facility] Last Admin: 03/20/24 23:13 Dose: 20 mg Bupropion HCl (Bupropion Hcl Xl 150 Mg Tab.Er.24h) 150 mg PO DAILY [facility] Last Admin: 03/21/24 08:29 Dose: 150 mg Buspirone HCl (Buspirone Hcl 10 Mg Tablet) 10 mg PO BID [facility] Last Admin: 03/21/24 08:27 Dose: 10 mg Calcium Carbonate (Calcium Carbonate 750 Mg Tab.Chew) 750 mg PO Q4H PRN PRN Reason: Heartburn Dabigatran (Dabigatran Etexilate Mesylate 150 Mg Capsule) 150 mg PO BID [facility] Last Admin: 03/21/24 08:27 Dose: 150 mg Diltiazem HCl (Diltiazem Hcl Cd 180 Mg Cap.Er.24h) 180 mg PO DAILY [facility]; Protocol Last Admin: 03/21/24 08:29 Dose: 180 mg Doxycycline Monohydrate (Doxycycline Monohydrate 100 Mg Capsule) 100 mg PO Q12H [facility] Last Admin: 03/21/24 08:29 Dose: 100 mg Duloxetine HCl (Duloxetine Hcl 60 Mg Capsule.Dr) 60 mg PO DAILY [facility] Last Admin: 03/21/24 08:27 Dose: 60 mg Famotidine (Famotidine 20 Mg Tablet) 20 mg PO BID [facility] Last Admin: 03/21/24 08:29 Dose: 20 mg Folic Acid (Folic Acid 1 Mg Tablet) 1 mg PO DAILY [facility] Last Admin: 03/21/24 08:30 Dose: 1 mg Lisinopril (Lisinopril 10 Mg Tablet) 10 mg PO DAILY [facility]; Protocol Last Admin: 03/21/24 08:30 Dose: 10 mg Magnesium Hydroxide (Milk Of Magnesia 30 Ml Oral.Susp) 30 ml PO DAILY PRN PRN Reason: Constipation Magnesium Oxide (Magnesium Oxide 400 Mg Tablet) 400 mg PO DAILY [facility] Last Admin: 03/21/24 08:29 Dose: 400 mg Melatonin (Melatonin 3 Mg Tablet) 6 mg PO BEDTIME PRN PRN Reason: Insomnia Metoprolol Tartrate (Metoprolol Tartrate 50 Mg Tablet) 50 mg PO BID [facility]; Protocol Last Admin: 03/21/24 08:30 Dose: 50 mg Multivitamins/Vitamin C (Multivitamin Tablet) 1 tab PO DAILY [facility] Last Admin: 03/21/24 08:29 Dose: 1 tab Naltrexone HCl (Naltrexone Hcl 50 Mg Tablet) 50 mg PO DAILY [facility] Last Admin: 03/21/24 08:29 Dose: 50 mg Ondansetron HCl (Ondansetron Hcl 4 Mg/2 Ml Vial) 4 mg IVPUSH Q8H PRN PRN Reason: Nausea and Vomiting Pharmacy Consult (Consult Rx Etoh Phenob Im/Po) 1 each MISCELLANE ONCE PRN; Protocol PRN Reason: Consult order Phenobarbital (Phenobarbital 30 Mg Tablet) 60 mg PO BID [facility] Last Admin: 03/17/24 10:18 Dose: Not Given Phenobarbital (Phenobarbital 30 Mg Tablet) 30 mg PO DAILY [facility] Stop: 03/22/24 09:01 Last Admin: 03/21/24 08:30 Dose: 30 mg Sodium Chloride (0.9 % Sodium Chloride Flush 3 Ml Syringe) [facility] Admin: 03/21/24 08:30 Dose: Not Given Thiamine HCl (Thiamine Hcl 100 Mg Tablet) 100 mg PO DAILY [facility] Last Admin: 03/21/24 08:30 Dose: 100 mg Home Medications ?Medication ?Instructions ?Recorded ?Confirmed ?Last Taken ?Type duloxetine 60 mg capsule,delayed 60 mg PO DAILY 12/21/19 03/16/24 03/15/24 History release multivitamin 1 tab PO DAILY 02/27/20 03/16/24 03/15/24 History allopurinol 100 mg tablet 200 mg PO DAILY 02/08/21 03/16/24 03/15/24 History naltrexone 50 mg tablet 50 mg PO DAILY Alcohol Withdrawal 08/24/22 03/16/24 03/15/24 History bupropion HCl 150 mg 24 hr tablet, 150 mg PO DAILY 06/01/23 03/16/24 03/15/24 History extended release buspirone 10 mg tablet 10 mg PO BID 10/06/23 03/16/24 03/15/24 History lisinopril 10 mg tablet 10 mg PO DAILY 12/12/23 03/16/24 03/15/24 History Physical Exam Vital Signs: Vital Signs: Last Vital Signs Temp 97.4 F 03/21/24 07:09 Pulse 66 03/21/24 08:29 Resp 18 03/21/24 07:09 BP 150/84 H 03/21/24 08:29 Pulse Ox 100 03/21/24 07:09 O2 Del Method Room Air 03/21/24 04:00 O2 Flow Rate 1 03/19/24 03:58 BMI result Body Mass Index 26.0 GENERAL APPEARANCE: in no acute distress, pleasant. NECK: no carotid bruit, no jugular venous distention. SKIN: no suspicious lesions, warm and dry. HEART: no murmurs, irregular rate and rhythm. LUNGS: clear to auscultation bilaterally. ABDOMEN: soft, nontender. NEUROLOGIC: No gross deficits, AAO X 3 Objective Labs and Meds 03/17/24 05:52 03/19/24 06:19 Lab results: Laboratory Results - last 24 hr 03/20/24 03/20/24 03/20/24 11:12 16:18 20:49 POC Glucose 160 H 158 H 113 03/21/24 03/21/24 08:00 10:49 POC Glucose 75 88 Assessment and Plan (1) A-fib: Status: Acute Plan Persistent atrial fibrillation in his 69 year gentleman with background of alcoholism. He is on digoxin, diltiazem and metoprolol. Average heart rate is around 50s to 60s. Asymptomatic. Given episode of bradycardia, I think digoxin can be held for now. He can continue the diltiazem and metoprolol. Continue anticoagulation unless there is concern for bleeding. Thank you for allowing me to participate in the care of your patient. Please feel free to contact me if you have any questions. Procedures Date of Service Date of Service: 03/21/24
--- NOTE | 2024-03-21 11:19 | MHC.CM.PN ---
[facility] REVIEWED[facility] HOWEVER PT'S HR IN 30'S, NO PLAN FOR DC AT THIS TIME, SNF UPDATED AND CM WILL CONT TO FOLLOW DC NEEDS.
--- NOTE | 2024-03-21 14:28 | HO.PM.IMPN ---
Subjective Subjective Date of Service: 03/21/24 Interval History: seen and examined this morning follow up for etoh withdrawal, diabetic foot wound feeling well, awake, alert and oriented. later developed bradycardia with HR down to 30s - remained asymptomatic Review of Systems Review of Systems: Yes all other systems are reviewed and are negative Constitutional Constitutional: Denies chills and Denies fever(s) Cardiovascular Cardiovascular: Denies chest pain and Denies dyspnea Respiratory Respiratory: Denies dyspnea Gastrointestinal Gastrointestinal: Denies abdominal pain Physical Exam Vital Signs: Vital Signs: Last Vital Signs Temp 97.3 F 03/21/24 12:00 Pulse 57 03/21/24 12:00 Resp 18 03/21/24 12:00 BP 106/67 03/21/24 12:00 Pulse Ox 99 03/21/24 12:00 O2 Del Method Room Air 03/21/24 12:00 O2 Flow Rate 1 03/19/24 03:58 BMI result Body Mass Index 26.0 Const: General: cooperative, comfortable, no acute distress, alert and awake Nutritional Appearance: average body habitus Orientation/consciousness: patient oriented x3 Resp: Effort & Inspection: normal respiratory effort, able to speak in complete sentences, no respiratory distress and no use of accessory muscles Cardio: Rate: regular rate GI: Inspection: No distended Palpation (GI): Soft to palpation Skin: Other: left stump with two small wounds, no drainage, no erythema Neuro: General: patient oriented x3 Extrem: Other: s/p left BKA Objective Data Active Medications Allopurinol (Allopurinol 100 Mg Tablet) 200 mg PO DAILY [facility] Last Admin: 03/21/24 08:29 Dose: 200 mg Documented By: BRITT Ascorbic Acid (Ascorbic Acid 500 Mg Tablet) 500 mg PO DAILY [facility] Last Admin: 03/21/24 08:30 Dose: 500 mg Documented By: BRITT Atorvastatin Calcium (Atorvastatin Calcium 20 Mg Tablet) 20 mg PO BEDTIME [facility] Last Admin: 03/20/24 23:13 Dose: 20 mg Documented By: ISMAEL Bupropion HCl (Bupropion Hcl Xl 150 Mg Tab.Er.24h) 150 mg PO DAILY [facility] Last Admin: 03/21/24 08:29 Dose: 150 mg Documented By: BRITT Buspirone HCl (Buspirone Hcl 10 Mg Tablet) 10 mg PO BID [facility] Last Admin: 03/21/24 08:27 Dose: 10 mg Documented By: BRITT Calcium Carbonate (Calcium Carbonate 750 Mg Tab.Chew) 750 mg PO Q4H PRN PRN Reason: Heartburn Dabigatran (Dabigatran Etexilate Mesylate 150 Mg Capsule) 150 mg PO BID [facility] Last Admin: 03/21/24 08:27 Dose: 150 mg Documented By: BRITT Diltiazem HCl (Diltiazem Hcl Cd 180 Mg Cap.Er.24h) 180 mg PO DAILY [facility]; Protocol Last Admin: 03/21/24 08:29 Dose: 180 mg Documented By: BRITT Doxycycline Monohydrate (Doxycycline Monohydrate 100 Mg Capsule) 100 mg PO Q12H [facility] Last Admin: 03/21/24 08:29 Dose: 100 mg Documented By: BRITT Duloxetine HCl (Duloxetine Hcl 60 Mg Capsule.Dr) 60 mg PO DAILY [facility] Last Admin: 03/21/24 08:27 Dose: 60 mg Documented By: BRITT Famotidine (Famotidine 20 Mg Tablet) 20 mg PO BID [facility] Last Admin: 03/21/24 08:29 Dose: 20 mg Documented By: BRITT Folic Acid (Folic Acid 1 Mg Tablet) 1 mg PO DAILY [facility] Last Admin: 03/21/24 08:30 Dose: 1 mg Documented By: BRITT Lisinopril (Lisinopril 10 Mg Tablet) 10 mg PO DAILY [facility]; Protocol Last Admin: 03/21/24 08:30 Dose: 10 mg Documented By: BRITT Magnesium Hydroxide (Milk Of Magnesia 30 Ml Oral.Susp) 30 ml PO DAILY PRN PRN Reason: Constipation Magnesium Oxide (Magnesium Oxide 400 Mg Tablet) 400 mg PO DAILY [facility] Last Admin: 03/21/24 08:29 Dose: 400 mg Documented By: BRITT Melatonin (Melatonin 3 Mg Tablet) 6 mg PO BEDTIME PRN PRN Reason: Insomnia Metoprolol Tartrate (Metoprolol Tartrate 50 Mg Tablet) 50 mg PO BID [facility]; Protocol Last Admin: 03/21/24 08:30 Dose: 50 mg Documented By: BRITT Multivitamins/Vitamin C (Multivitamin Tablet) 1 tab PO DAILY [facility] Last Admin: 03/21/24 08:29 Dose: 1 tab Documented By: BRITT Naltrexone HCl (Naltrexone Hcl 50 Mg Tablet) 50 mg PO DAILY [facility] Last Admin: 03/21/24 08:29 Dose: 50 mg Documented By: BRITT Ondansetron HCl (Ondansetron Hcl 4 Mg/2 Ml Vial) 4 mg IVPUSH Q8H PRN PRN Reason: Nausea and Vomiting Pharmacy Consult (Consult Rx Etoh Phenob Im/Po) 1 each MISCELLANE ONCE PRN; Protocol PRN Reason: Consult order Phenobarbital (Phenobarbital 30 Mg Tablet) 60 mg PO BID [facility] Last Admin: 03/17/24 10:18 Dose: Not Given Documented By: HERO Non-Admin Reason: Physician Held Med Phenobarbital (Phenobarbital 30 Mg Tablet) 30 mg PO DAILY [facility] Stop: 03/22/24 09:01 Last Admin: 03/21/24 08:30 Dose: 30 mg Documented By: BRITT Sodium Chloride (0.9 % Sodium Chloride Flush 3 Ml Syringe) 3 ml IVFLUSH QSHIFT [facility] Last Admin: 03/21/24 08:30 Dose: Not Given Documented By: BRITT Non-Admin Reason: No Access Thiamine HCl (Thiamine Hcl 100 Mg Tablet) 100 mg PO DAILY [facility] Last Admin: 03/21/24 08:30 Dose: 100 mg Documented By: BRITT Labs 03/17/24 05:52 03/19/24 06:19 Labs: Laboratory Results - last 24 hr 03/20/24 03/20/24 03/21/24 16:18 20:49 08:00 POC Glucose 158 H 113 75 03/21/24 10:49 POC Glucose 88 Microbiology Microbiology Results: Microbiology 03/17/24 13:20 Gram Stain - Final Leg - Left Routine Culture - Final Staphylococcus aureus Klebsiella oxytoca Enterobacter cloacae complex Assessment and Plan (1) Alcohol withdrawal hallucinosis: Status: Acute (2) Chronic wound: Status: Acute Plan 69-year-old male with a PMH significant for?CAD, persistent AFib on Pradaxa, chronic osteomyelitis s/p left BKA, HTN, HLD, alcohol use disorder w/hx of withdrawal, [id number] type 2 diabetes, splenic marginal zone lymphoma, gout, BPH, and mood disorder who presents to the ED for evaluation of visual hallucinations. Patient will be admitted to the hospital medical floor for treatment and further evaluation of visual hallucinations concerning for acute alcohol withdrawal. Question Acute alcohol withdrawal denies EtOH x 2 months; empirically started on phenobarb Presented with Tremors, diaphoresis, increased anxiety,visual hallucinations - treated with phenobarb for suspected alcohol withdrawal, mentation improved no further hallucination Seen by psychiatry likely cause of hallucination was alcohol abuse and dependence Continue phenobarb protocol Daily multivitamin, folic acid, thiamine Famotidine Addiction medicine consult - seen by chemical treatment operator -- outpt resources provided Monitor on telemetry Chronic diabetic wounds left stump wound purulent drainage and erythema resolved jawbone puller appreciated -- see notes for recs Persistent AFib with slow ventricular response - HR down to 30s; asymptomatic Continue Lopressor, diltiazem Seen by Cardiology, recommend to stop digoxin for now Continue anticoagulation with Pradaxa follow heart rate closely PVD bilateral LE disoloration (chronic) distant pedal pulse (RLE), cool check arterial duplex to bilateral LE - mild stenosis; should have outpt f/u Hypomagnesemia improved with repletion Left shoulder fracture Reports will undergo shoulder replacement surgery once chronic wounds are healed F/U outpatient with ortho HTN Continue lisinopril HLD Continue statin Non insulin-dependent type 2 diabetes Noted to have hypoglycemia blood sugars 57 hemoglobin A1c 5.3 DC Farxiga, DC insulin sliding scale follow POCs weakness Seen by PT they recommend short-term rehab - to rehab likely in am Full Code DVT Prophylaxis: On Pradaxa Quality Stroke Does the patient have a stroke diagnosis?: No VTE Prior VTE?: No VTE Risk Level:: Medical - moderate - high VTE Device Contraindication: Treatment Not Indicated VTE Drug Contraindication: N/A - Med Ordered
[2024-03-21 16:22] LABS: Glucose, Whole Blood 136 mg/dL (60-115)
[2024-03-21 20:22] LABS: Glucose, Whole Blood 100 mg/dL (60-115)
[2024-03-21] MEDS: Melatonin 3 MG TABLET 6 MG PO (21:25)
[2024-03-21] MEDS: Atorvastatin Calcium 20 MG TABLET PO (21:26)
[2024-03-22] VITALS: BP 155/83; PULSE 69; RESP 16; TEMP 36.2; O2SAT 100
[2024-03-22 04:00] VITALS: BP 153/82; PULSE 64; RESP 16; TEMP 37.2; O2SAT 99
[2024-03-22 07:40] LABS: Glucose, Whole Blood 44 mg/dL (60-115)
[2024-03-22 08:00] VITALS: BP 145/92; PULSE 67; RESP 12; TEMP 36.3; O2SAT 100
[2024-03-22] MEDS: Glucose Gel 15 GM GEL..GRAM. PO (08:03)
[2024-03-22 08:07] LABS: Glucose, Whole Blood 27 mg/dL (60-115)
[2024-03-22 08:07] LABS: Glucose, Whole Blood 25 mg/dL (60-115)
[2024-03-22 08:37] LABS: Glucose, Whole Blood 22 mg/dL (60-115)
[2024-03-22 08:37] LABS: Glucose, Whole Blood 80 mg/dL (60-115)
[2024-03-22] MEDS: buPROPion HCl XL 150 MG TAB.ER.24H PO (08:40)
[2024-03-22] MEDS: dilTIAZem HCL CD 180 MG CAP.ER.24H PO (08:42)
[2024-03-22] MEDS: Doxycycline Monohydrate 100 MG CAPSULE PO (08:46)
[2024-03-22] MEDS: Magnesium Oxide 400 MG TABLET PO (08:46)
[2024-03-22] MEDS: Naltrexone HCl 50 MG TABLET PO (08:46)
[2024-03-22] MEDS: allopurinoL 100 MG TABLET 200 MG PO (08:46)
[2024-03-22] MEDS: Dabigatran Etexilate Mesylate 150 MG CAPSULE PO (08:46)
[2024-03-22] MEDS: Famotidine 20 MG TABLET PO (08:46)
[2024-03-22] MEDS: DULoxetine HCl 60 MG CAPSULE.DR PO (08:46)
[2024-03-22] MEDS: lisinopriL 10 MG TABLET PO (08:46)
[2024-03-22] MEDS: Thiamine HCL 100 MG TABLET PO (08:46)
[2024-03-22] MEDS: Folic Acid 1 MG TABLET PO (08:46)
[2024-03-22] MEDS: Multivitamin TABLET 1 TAB PO (08:46)
[2024-03-22] MEDS: Ascorbic Acid 500 MG TABLET PO (08:46)
[2024-03-22] MEDS: PHENobarbitaL 30 MG TABLET PO (08:47)
[2024-03-22] MEDS: busPIRone HCl 10 MG TABLET PO (08:49)
[2024-03-22 09:25] LABS: Glucose, Whole Blood 68 mg/dL (60-115)
[2024-03-22 10:04] LABS: Glucose, Whole Blood 58 mg/dL (60-115)
--- NOTE | 2024-03-22 10:18 | MHC.CM.PN ---
Per ROUNDS discussion, Patient is Hypoglycemic and not yet medically cleared for dc; STR @ [facility] [facility] is the goal and CM will continue to follow.
[2024-03-22] MEDS: Dextrose 5 % 1,000 ML 80 ML IVCONT (10:30)
[2024-03-22 11:28] LABS: Anion Gap 14 (12-20); Blood Urea Nitrogen 16 mg/dL (9-16); Calcium 9.3 mg/dL (8.4-10.2); Carbon Dioxide 28 mmol/L (22-29); Chloride 102 mmol/L (96-108); Creatinine Clr Calc Pharmacy 115.7; Estimated Glomerular Filt Rate > 60; Glucose Random 105 mg/dL (60-115); Potassium 4.5 mmol/L (3.3-5.1); Sodium 139 mmol/L (135-145)
[2024-03-22 11:30] VITALS: BP 110/67; PULSE 69; RESP 20; TEMP 36.2; O2SAT 100
[2024-03-22 11:31] LABS: Glucose, Whole Blood 60 mg/dL (60-115)
[2024-03-22 12:16] LABS: Glucose, Whole Blood 115 mg/dL (60-115)
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
--- NOTE | 2024-03-22 13:41 | MHC.CM.PN ---
Per PA, Patient is now medically cleared for dc to STR/SNF today. Patient will dc to [facility] today at 4:30 PM, via [facility]. CM met with Patient at bedside and addressed IMM with him, providing Patient with the original and a copy has been placed on the chart. Patient prefers to inform his family himself, regarding the dc plan.
--- NOTE | 2024-03-22 15:49 | PC.NURSE ---
0730 POC 44, pt aymtomatic and no complaints, AXOX4. given PO glucose gel per provider and OJ with sugar. at this time breakfast also arrived and pt ate 100% of meal. POC rechecked in 15 min with result in low 20s, provider notified. pt axox4 at this time. pt had no IV access, charge nurse inserted IV, see chart. 0832 POC 83 0916 POC 68 1000 POC 58 IVF started per MAY.1253 per provider d/c IVF at this time.Pt currently axox4. no complaints at this time
[2024-03-22 16:32] LABS: Glucose, Whole Blood 154 mg/dL (60-115)
== END 2024-03-22 17:25 | disposition skilled nursing facility (03) | DRG 897 ==
LOC: HO.ED 15:18 → HO.EDOVER 17:53 → HO.IMC 19:39
PROVIDERS: Family Medicine; Hospitalist; Internal Medicine; Nurse Practitioner Acute Care; Student in an Organized Health Care Education/Training Program; Admitting Provider Student in an Organized Health Care Education/Training Program; Emergency Provider Emergency Medicine Emergency Medical Services; PCP Internal Medicine; Visit Provider Physician Assistant Medical
DX: F10.232 Alcohol dependence with withdrawal with perceptual disturbance (principal); I48.19 Other persistent atrial fibrillation; T87.44 Infection of amputation stump, left lower extremity; L97.919 Non-pressure chronic ulcer of unspecified part of right lower leg with unspecified severity; I25.10 Atherosclerotic heart disease of native coronary artery without angina pectoris; R23.1 Pallor; L24.A0 Irritant contact dermatitis due to friction or contact with body fluids, unspecified; E11.51 Type 2 diabetes mellitus with diabetic peripheral angiopathy without gangrene; I70.245 Atherosclerosis of native arteries of left leg with ulceration of other part of foot; L97.529 Non-pressure chronic ulcer of other part of left foot with unspecified severity; G31.2 Degeneration of nervous system due to alcohol; E11.649 Type 2 diabetes mellitus with hypoglycemia without coma; I70.239 Atherosclerosis of native arteries of right leg with ulceration of unspecified site; I10 Essential (primary) hypertension; E83.42 Hypomagnesemia; Z23 Encounter for immunization; Y83.5 Amputation of limb(s) as the cause of abnormal reaction of the patient, or of later complication, without mention of misadventure at the time of the procedure; Z20.822 Contact with and (suspected) exposure to COVID-19; Z79.01 Long term (current) use of anticoagulants; Z79.899 Other long term (current) drug therapy
CPT/HCPCS: 0241U; 36415; 36600; 80048; 80053; 80307; 81001; 82140; 82607; 82746; 82803; 82947; 83036; 83605; 83735; 84443; 85025; 85027; 87040; 87070; 87077; 87186; 87205; 87493; 87507; 90656; 93005; 93925; 97162; 97530; 99285; C1758; J2560; J3360; J3411; J3475

== ENCOUNTER 2024-03-16 17:47 | Outpatient (BNV) | payer MEDICARE, SELFPAY | END 2024-03-21 11:02 | PROVIDERS: Admitting Provider Student in an Organized Health Care Education/Training Program; Emergency Provider Emergency Medicine Emergency Medical Services; PCP Internal Medicine; Visit Provider Internal Medicine Cardiovascular Disease | DX: I48.91 Unspecified atrial fibrillation (principal) | CPT/HCPCS: 93010 ==

== ENCOUNTER → 2024-03-16 17:47 | Outpatient (BNV) | payer MEDICARE, SELFPAY | PROVIDERS: Admitting Provider Student in an Organized Health Care Education/Training Program; Emergency Provider Emergency Medicine Emergency Medical Services; PCP Internal Medicine; Visit Provider Internal Medicine Cardiovascular Disease | DX: I48.91 Unspecified atrial fibrillation (principal) | CPT/HCPCS: 99222 ==

== ENCOUNTER → 2024-03-16 17:47 | Outpatient (BNV) | payer MEDICARE, SELFPAY | PROVIDERS: Admitting Provider Student in an Organized Health Care Education/Training Program; Emergency Provider Emergency Medicine Emergency Medical Services; PCP Internal Medicine; Visit Provider Social Worker | DX: F10.932 Alcohol use, unspecified with withdrawal with perceptual disturbance (principal) | CPT/HCPCS: 99232 ==

== ENCOUNTER → 2024-03-16 17:47 | Outpatient (BNV) | payer MEDICARE, SELFPAY | PROVIDERS: Admitting Provider Student in an Organized Health Care Education/Training Program; Emergency Provider Emergency Medicine Emergency Medical Services; PCP Internal Medicine; Visit Provider Student in an Organized Health Care Education/Training Program | DX: F10.932 Alcohol use, unspecified with withdrawal with perceptual disturbance (principal); E11.51 Type 2 diabetes mellitus with diabetic peripheral angiopathy without gangrene; E11.622 Type 2 diabetes mellitus with other skin ulcer; I48.19 Other persistent atrial fibrillation | CPT/HCPCS: 99223; 99232; 99239; 99499 ==

== ENCOUNTER 2024-04-11 13:47 | Outpatient (AMB) | payer MEDICARE, SELFPAY ==
--- NOTE | 2024-04-11 13:39 | A.OFFVIS_ITS ---
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 I originally new him for prior toe amputations. Unfortunately the left leg went on to a below-knee amputation. In addition 08/06/2018 he had undergone splenic artery coiling by me and subsequently splenectomy secondary to lymphoma. He has been doing relatively well since that time. Right leg seems to be doing relatively stable and he had routine arterial surveillance when he was in the hospital. Unfortunately late February he was brought into the hospital for hallucinations and alcohol use disorder. In addition since I last saw him he is now . On the positive side he has now grandfather as well At the time of my visit he appeared to be in relatively good spirits. [facility] Medical History Weakness Alcohol withdrawal Rosacea Annual physical exam Persistent atrial fibrillation Orthostatic hypotension Lymphoma Depression Essential hypertension Hyperlipidemia LDL goal <100 Obesity due to excess calories BMI 30.0-30.9,adult DM (diabetes mellitus) ETOH abuse BPH associated with nocturia CAD (coronary artery disease) Long-term current use of intravenous immunoglobulin (IVIG) GERD (gastroesophageal reflux disease) Hypogammaglobulinemia Diabetic eye exam Adjustment disorder PAF (paroxysmal atrial fibrillation) Gout Chronic osteomyelitis Splenic marginal zone b-cell lymphoma EMIL (obstructive sleep apnea) Surgical History Status post below-knee amputation of left lower extremity Osteomyelitis Osteomyelitis History of esophagogastroduodenoscopy (EGD) History of colonoscopy History of bunionectomy History of cardiac cath Family History Father Diabetes Mother Liver cancer Maternal Grandfather CVD (cardiovascular disease) Brother Myocardial infarction Social History Household Members: Unknown / Unable to assess Housing: Unknown / Unable to assess Alcohol intake: former Year quit: 2019 Comment: sitter in room / video Patient Tobacco Use Status: Never used Tobacco e-Cigarette/Vaping Use: Never Used Second Hand Smoke Exposure: No Advance Directives Date on File: 10/10/23 service: No Current occupational status: employed 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 Cognitive needs: No Hearing needs: No Vision needs: Yes Review of Systems Const All systems reviewed & are unremarkable except as noted in HPI and below Reports no additional complaints ENT Reports Normal hearing present Card Denies chest pain, Denies chest pain at rest, Denies chest pain with activity and Denies pedal edema Resp Denies cough GI Denies abdominal pain Musc Denies abnormal gait, Denies muscle cramps and Denies radiating pain into limb Skin/Breast Denies skin ulcer and Denies wounds Neuro Reports Normal hearing present and Denies abnormal gait Psych Reports no additional complaints Physical Exam Const General: cooperative, healthy appearing and comfortable Orientation/consciousness: oriented to person, oriented to place and oriented to time HEENT Head: Yes normal to inspection Neck Neck: Yes normal visual inspection Carotids: no bruits Chest Chest palpation & inspection: normal inspection of the chest Resp Effort & Inspection: normal respiratory effort and able to speak in complete sentences Auscultation: clear to auscultation bilaterally, no crackles, no rales, no rhonchi and no wheezes Cardio Other: Right foot DP signal Rate: regular rate Rhythm: regular rhythm Heart sounds: S1 normal heart sound present and S2 normal heart sound present Bruits: no carotid bruits GI Inspection: Yes normal to inspection Skin Wounds: no wounds and amputation site (Well healed) Hair: normal Neuro General: oriented to person, oriented to place and oriented to time Cranial nerves: Yes CN's II-XII intact bilaterally and Yes Normal hearing present Cognition (Neuro): normal cognition Motor exam (neuro): 5/5 motor strength present throughout Extrem Other: venous exam: No significant superficial varicosities or spider telangiectasias, minimal edema General: No clubbing, No cyanosis and No edema Psych Appearance: grossly normal Mental Status: mental status grossly normal Speech and movement: Normal speech and movement present Results Reviewed Results Reviewed: Noninvasive arterial testing dated 03/17/2024 demonstrates only mild right SFA disease. Assessment & Plan Assessment & Plan (1) PVD (peripheral vascular disease): Comment: 2016 - left toe amp, subsequent BKA Code(s): I73.9 - Peripheral vascular disease, unspecified Category: Medical Plan: In short patient has stable claudication. I did review the pathophysiology of peripheral vascular disease with the patient. In addition we did discuss routine conservative measures including a healthy diet and the importance of exercise and ambulation. We did discuss risk factor modification. The patient will continue to to follow-up with surveillance follow-up in approximately 6 months. Thank you for allowing us to participate in this patient's care. If there are any questions or concerns please do not hesitate to contact us. Orders: Orders US arterial duplex LE RT 6 Months I73.9 - Peripheral vascular disease, unspecified Coding Level of Care Code Est Pt Level 4 (57169) Complex EM visit Add On G2211 Diagnoses PVD (peripheral vascular disease) I73.9
--- OUTSIDE RECORDS SUMMARY | 2024-04-11 18:09 | XMS_ITS | Continuity of Care Document ---
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 Plan of Treatment Reminders Order Date Submit Date Provider Last Modified By Organization Details Last Modified Time Details Appointments None record ed. Lab None record ed. Referral None record ed. Procedures None record ed. Surgeries None record ed. Imaging None record ed. Medication Orders None record ed. Patient TargetsNo targets recorded. Patient InstructionsNo instructions recorded. Reason for Referral None Reported. Problems Name Problem SNOMED Code Status Onset Date Resolution Date Notes Provider Name and Address Organization Details Recorded Time Atrial fibrillatio n 46940198 Active 2023 JAVY MABRY NP [address] [facility], [facility] [address], [address], [facility] 4 14:46:48 Osteomyelit is 98599051 Active 2023 JAVY MABRY NP [address] [facility], [address], [place], [address], [facility] 4 14:46:56 Open wound of skin 626830586891 Active 2023 JOSH MABRY NP [address] [facility], [address], [place], [address], [facility] 4 14:47:21 Essential hypertensio n 55749905 Active 2023 JAVY MABRY NP [address] [facility], [address], [place], [address], [facility] 4 14:47:31 Hyperlipide pablo 66276374 Active 2023 JAVY MABRY NP [address] [facility], [address], [place], [address], [facility] 4 14:47:35 Alcohol abuse 78322095 Active 2023 JAVY MABRY NP [address] [facility], [address], [place], [address], [facility] 4 14:47:58 Falls 167029211 Active 2023 JAVY MABRY NP [address] [facility], [address], [place], [address], [facility] 4 14:53:49 Type 2 diabetes mellitus 96041115 Active 2023 JAVY MABRY NP [address] [facility], [address], [place], [address], [facility] 4 15:00:44 Marginal zone lymphoma 810950674 Active 2023 Jatin Landis MD [address] [facility], [address], [place], [address], [facility] 4 10:17:07 Benign prostatic hyperplasia without outflow obstruction 270114075 Active 2023 Jatin Landis MD [address] [facility], [address], [place], [address], [facility] 4 10:17:13 Problem Notes None recorded. Medical Equipment None Reported. Allergies Allergen ID Allergen Name Allergen Category Reaction Reaction Severity Criticality Documentation Date Start Date Code Code System Note Provider Name and Address Organization Details Recorded Time [id number] 2824e Bactrim medicatio n Not available Not available Not available 03/23/2024 42425 9 RxNorm Not Available Not Available Not Available [id number] 0603776n4 2824e vancomyci n medicatio n Not available Not available Not available 03/23/2024 05608 RxNorm Not Available Not Available Not Available Medications Not known to be on any medication Vitals Date Recorded Body weight Heart rate Respiratory rate Body temperature Oxygen saturation Oxygen saturation in Arterial blood by Pulse oximetry Systolic blood pressure Diastolic blood pressure Provider Name and Address Organization Details Last Updated DateTime 5 90890 g 82 /min 16 /min 97.2 [degF] 95 % 95 % 134 mm[Hg] 60 mm[Hg] Jasmin La, DAVIDA [address] [facility], [address], [place], [address], [facility] 5 20:25:18 Social History Question Answer Notes LastModified by Organizat ion Details LastModified Time Tobacco Smoking Status Never Smoker JAVY MABRY, DAVIDA [address] [facility], [address], [place], [address], [facility] 03/23/2024 14:49:48 Do You Have An Advance Directive? Yes Information not available 03/23/2024 What Is Your Level Of Alcohol Consumption? Heavy CIWA Wth Haldol And Ativan In The Hospital Information not available 03/23/2024 How Many Times Per Week Do You Consume Alcohol? 5-7 Times Per Week Pint Or 5th Daily Information not available 03/23/2024 What Is Your Code Status? Full Code Information not available 03/23/2024 What Was The Date Of Your Most Recent Tobacco Screening? 03/23/2024 Information not available 03/23/2024 Do You Use Any Illicit Or Recreational Drugs? No Information not available 03/23/2024 Sex: Unknown Functional Status None recorded. Mental Status None recorded. Family History Nothing Reported Notes:N/C Medical History No medical history recorded. Immunizations Vaccine Type Date Status Note Provider Nam e and Address Organization Details Recorded Time Respiratory syncytial virus (RSV), unspecified 3 completed Eulalia brasher [facility] 03/26/2024 14:51:00 Hep B, unspecified formulation 8 completed Eulalia brasher [facility] 03/26/2024 14:51:16 [facility] 14:51:30 Pneumococcal conjugate PCV 13 3 [facility] 14:55:05 pneumococcal polysaccharide PPV23 10/14/201 6 completed Eulalia Prateek null, [facility] 03/26/2024 14:55:34 pneumococcal polysaccharide PPV23 6 completed Eulalia Prateek null, [facility] 03/26/2024 14:55:41 influenza, unspecified formulation 2 completed Eulalia Prateek null, [facility] 03/26/2024 14:56:07 influenza, unspecified formulation 3 completed Eulalia Prateek null, [facility] 03/26/2024 14:56:17 influenza, unspecified formulation 4 completed Eulalia Prateek null, [facility] 03/26/2024 14:56:27 meningococcal ACWY, unspecified formulation 9 completed Eulalia Prateek null, [facility] 03/26/2024 14:56:54 SARS-COV-2 (COVID-19) vaccine, UNSPECIFIED 1 completed Eulalia Prateek null, [facility] 03/26/2024 14:57:07 SARS-COV-2 (COVID-19) vaccine, UNSPECIFIED 1 completed Eulalia Prateek null, [facility] 03/26/2024 14:57:15 SARS-COV-2 (COVID-19) vaccine, UNSPECIFIED 1 completed Eulalia Prateek null, [facility] 03/26/2024 14:57:24 SARS-COV-2 (COVID-19) vaccine, UNSPECIFIED 2 completed Eulalia Prateek null, [facility] 03/26/2024 14:57:32 SARS-COV-2 (COVID-19) vaccine, UNSPECIFIED 2 completed Eulalia Prateek null, [facility] 03/26/2024 14:57:40 SARS-COV-2 (COVID-19) vaccine, UNSPECIFIED 3 completed Eulalia Prateek null, [facility] 03/26/2024 14:57:48 zoster, unspecified formulation 3 completed Eulalia Prateek null, [facility] 03/26/2024 14:58:02 zoster, unspecified formulation 3 completed Eulalia Chandra same[place] [facility] 03/26/2024 14:58:10 Past Encounters Encounter ID Performer Location Encounter Start Date Encounter Closed Date Diagnosis/Indication Diagnosis SNOMED-CT Code Diagnosis ICD10 Code Diagnosis Note [id number] JAVY MABRY NP [facility] [address] 03/23/2024 14:38:33 03/25/2024 12:39:17 Alcohol abuse 10319056 F10.10 monitor for any signs of withdrawlf olic 1 mg dailyNaltr exone 60 mg dailyThiam ine 100 mg dailyMag ox 400 mg dailymvi dailyVit C 500 dailyBuspa r 10 mg bidCymbalt a 60 mg dailyWellb utrin 150 mg daily Osteomyelitis 48785365 M 86.9 Doxycyline 100 mg bid to 03/25monit or for any signs of infections [place] of skin 17335 44180 01 T14.8XXA Doxycyline 100 mg bid to 03/25monit or for any signs of infections wound consult [place] 292511163 R29.6 PTOT eval and treatfall precaution sfrequent safety checks Atrial fibrillation 4943 6004 I48.91 Diltiazem er 180 mg dailyMetop rolol 25 mg bidmonitor heart rate Essential hypertension 76803589 I10 Diltiazem er 180 mg dailyMetop rolol 25 mg bidmonitor bp Hyperlipidemia 01029974 E78.5 atorvastat in 20 mg daily Type 2 dylon betes mellitus 45630431 E11.9 monitor glucose [id number] [facility] [address] [address] 03/25/2024 10:05:56 03/26/2024 13:18:46 Alcohol abuse 75399462 F10.132 see HPIcontinu ed on thiamine and supplement seval by addiction med in hospitalso [facility] need for increased support in community Osteomyelitis 07128621 M 86.052 carrying dx left chronic osteo at bka sitestarte d empiricall y on doxy through 03/25repea t cbcID / ortho eval prnmonitor siteupdate ortho with concerns Open wound of skin 04881 15523 01 T14.8XXA see above with chronic infection Atrial fibrillation 4943 6004 I48.0 pradaxa 150 mg bidmetopro lol 25 mg bidmonitor for rate control Essential hypertension 72731821 I10 Diltiazem 180 mg qdlisinopr il 10 mg qdMetoprol ol 25 mg bidmonitor bp and need to titrate Hyperlipidemia 23413498 E78.2 lipitor 20 mg qdcontinue d Type 2 dylon betes mellitus 10740426 E11.9 diet controlled now off metforminm ost recent hba1c wnrmonitor accucheck prn Asthenia 66628199 R53.1 weakness and gait instabilit yPT OT Eval and treatmonit or fall risk and need for increased support in community Marginal z one lymphoma 343139534 C83.07 carrying dx added to PMHlimited informatio n availabler equest prior notes from PCP Benign pro static hyperplasia without outflow obstruction 534411383 N40.0 added to PMHmonitor for retention [id number] Jasmin La NP [facility] [address] 03/28/2024 16:08:27 03/29/2024 11:48:40 Alcohol abuse 25604648 F10.132 see HPInaltrex one 50 mg po qdcontinue d on thiamine and supplement seval'd by addiction services in hospitalso cia work to be involved at [facility] nitor need for increased support in community Osteomyelitis 63072570 M 86.052 carrying dx left chronic osteo at a sitecomple nori ramon empiricall y through 03/25ID / ortho eval prnmonitor siteupdate ortho with concerns Open wound of skin 23981 22062 01 T14.8XXA see above with chronic infection Asthenia 06244495 R53.1 weakness and gait instabilit yPT OT Eval and treatmonit or fall risk and need for increased support in community Atrial fibrillation 4943 6004 I48.0 contpradax a 150 mg bidmetopro lol 25 mg bidmonitor for rate control Essential hypertension 26142460 I10 controlled contDiltia zem 180 mg qdlisinopr il 10 mg qdMetoprol ol 25 mg bidmonitor bp and need to titrate Hyperlipidemia 22460604 E78.2 lipitor 20 mg qdcontinue d Type 2 dylon betes mellitus 90254987 E11.9 diet controlled , reportedha d low BS in hospital with possible low BS related to skin conditionn ow off metforminm ost recent hba1c wnrmonitor accucheck prn Marginal z one lymphoma 135278993 C83.07 with hx oflimited informatio n availablef u with oncology 04/05 Atopic dermatitis 764406 01 L20.9 pt with notable scab like ulceration s and peeling of skin in webs of fingersDDX with ? livedoid vasculopat hy mentioned in hosp dc summaryhe continues with peeling of skin and dryness and reports ulceration s were peeled up03/28/24 will trial triamcinol one 0.5% oint 1 dime size area to affected hands until resolvedmo nitor for changesVas cular 04/11 @ 13pm. Rheumatoid arthritis 698 78826 M06.9 he denies arthritis today however has likely underlying arthritisf u with Rheumatoid appt with Dr Hart 07/04 @ [facility]. [id number] [facility] [address] 04/05/2024 12:48:06 04/09/2024 09:15:27 Atopic dermatitis 63913614 L20.9 pt with notable scab like ulceration s and peeling of skin in webs of fingers now resolvingD DX with ? livedoid vasculopat hy mentioned in hosp dc summaryhe continues with peeling of skin and dryness and reports ulceration s were peeled upcont triamcinol one 0.5% oint 1 dime size area to affected hands until resolvedmo nitor for changesVas cular 04/11 @ 13pm. Alcohol abuse 36319080 F 10.132 see HPInaltrex one 50 mg po qdcontinue d on thiamine and supplement seval'd by addiction services in hospitalso cial work to be involved at facilitymo nitor need for increased support in community Osteomyelitis 71079951 M 86.052 carrying dx left chronic osteo at bka sitecomple nori doxy empiricall y through 03/25ID / ortho eval prnmonitor site for s/s infectionu pdate ortho with concerns Open wound of skin 62277 09155 01 T14.8XXA see above with chronic infection Asthenia 58377481 R53.1 weakness and gait instabilit yPT OT Eval and treatmonit or fall risk and need for increased support in community Atrial fibrillation 4943 6004 I48.0 contpradax a 150 mg bidmetopro lol 25 mg bidmonitor for rate control Essential hypertension 39575827 I10 controlled contDiltia zem 180 mg qdlisinopr il 10 mg qdMetoprol ol 25 mg bidmonitor bp and need to titrate Hyperlipidemia 81310536 E78.2 lipitor 20 mg qdcontinue d Type 2 dylon betes mellitus 88960197 E11.9 diet controlled , reportedha d low BS in hospital with possible low BS related to skin conditionn ow off metforminm ost recent hba1c wnrmonitor accucheck prn Marginal z one lymphoma 848612199 C83.07 with hx oflimited informatio n availablef u with oncology 04/05result s and consult pending Rheumatoid arthritis 698 15170 M06.9 he denies arthritis today however has likely underlying arthritisf u with Rheumatoid appt with Dr Hart 07/04 @ 11am. Health Concerns Section Related Observation LastModified by Organization Detai ls LastModified Time None Recorded Concern Status LastModified by Organization Details LastModified Time None Recorded Payers Encounter Date Sequence Insurance Name Policy Number Policy Alba Covered Member ID Alba Member ID Guarantor Name 04/05/2024 1 [employer] (MEDICARE REPLACEMENT PPO) [id number] Ashley Francis [id number] Ashley Francis Notes Date Note Type Note Provider Name and Address Organization Details Recorded Time 04/05/2024 text/html Pt is seen for a n acute rounding visit. PMH: cad, dm, lbka, afib, htn, hld, left shoulder fracture, gout, etoh, non healing wound left bka Ashley is followed by wound care for his L BKA last seen on 04/02 rec collagen dressing qd and prn with no obvious s/s of infection and improving on exam. On exam, He has is seen for follow up of scale and redness to hands recently started on triamcinolone ointment with good effect. Greater than 50 % improved. He reports he has is on his way to a oncology appt today. Per therapy notes on 04/05 Pt ambulated with L BKA, FWW, SBA, 3 x 60 feet to increase independence and mobility with VC/TC for foot clearance and eccentic control during seated rest breaks. of note; Ashley is a 69 yo male admit from hospital after presenting with altered mental status and delusions/hallucina tions with withdrawal from ETOH and non complaint with meds. He was started on phenobarbital. While in the hospital he was eval by addiction med, psych, wound care and cards. 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 of note: Has an oncology appt 04/05 @11am. Vascular 04/11 @ 13pm. Rheumatoid appt with Dr Hart 07/04 @ 11am. Dr Coronel leaving practice soonest appt was taken. Jasmin La, DAVIDA [address] [facility], [address], [place], [address], [facility] 04/05/2024 20:47:53
--- OUTSIDE RECORDS SUMMARY | 2024-04-11 18:09 | XMS_ITS | Data Portability ---
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 Name Role Phone DONOVAN DONATO - 2ND FLOOR OTHER ZANE SANTANA Primary [...] Organization Details Recorded Time Atrial fibrillatio n 72854579 Active 2023 JAVY MABRY NP [address] [facility], [address], [place], [address], [facility] 4 14:46:48 Osteomyelit is 49732467 Active 2023 JAVY MABRY NP [address] [facility], [address], [place], [address], [facility] 4 14:46:56 Open wound of skin 455847458866 Active 2023 JOSH MABRY NP [address] [facility], [address], [place], [address], [facility] 4 14:47:21 Essential hypertensio n 76704788 Active 2023 JAVY MABRY NP [address] [facility], [address], [place], [address], [facility] 4 14:47:31 Hyperlipide pablo 34933908 Active 2023 JAVY MABRY NP [address] [facility], [address], [place], [address], [facility] 4 14:47:35 Alcohol abuse 90532398 Active 2023 JAVY MABRY NP [address] [facility], [address], [place], [address], [facility] 4 14:47:58 Falls 942652440 Active 2023 JAVY MABRY NP [address] [facility], [address], [place], [address], [facility] 4 14:53:49 Type 2 diabetes mellitus 73416571 Active 2023 JAVY MABRY NP [address] [facility], [address], [place], [address], [facility] 4 15:00:44 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 Medical Equipment None Reported. Allergies Allergen ID Allergen Name Allergen Category Reaction Reaction Severity Criticality Documentation Date Start Date Code Code System Note Provider Name and Address Organization Details Recorded Time [id number] 2824e Bactrim medicatio n Not available Not available Not available 03/23/2024 17282 9 RxNorm Not Available Not Available Not Available [id number] 1423388o2 2824e vancomyci n medicatio n Not available Not available Not available 03/23/2024 64207 RxNorm Not Available Not Available Not Available Medications Not known to be on any medication Vitals Date Recorded Body weight Heart rate Respiratory rate Body temperature Oxygen saturation Oxygen saturation in Arterial blood by Pulse oximetry Systolic blood pressure Diastolic blood pressure Provider Name and Address Organization Details Last Updated DateTime 4 20405.9 2 g 74 /min 16 /min 97.1 [degF] 97 % 97 % 102 mm[Hg] 65 mm[Hg] JAVY MABRY NP [address] [facility], [facility] [address], [place], [address], [facility] 4 14:45:21 Date Recorded Body weight Heart rate Respiratory rate Body temperature Oxygen saturation Oxygen saturation in Arterial blood by Pulse oximetry Systolic blood pressure Diastolic blood pressure Provider Name and Address Organization Details Last Updated DateTime 5 72814.4 4 g 67 /min 18 /min 97.4 [degF] 98 % 98 % 150 mm[Hg] 80 mm[Hg] Jasmin La NP [address] [facility], [facility] [address], [place], [address], [facility] 5 16:11:23 Date Recorded Body weight Heart rate Respiratory rate Body temperature Oxygen saturation Oxygen saturation in Arterial blood by Pulse oximetry Systolic blood pressure Diastolic blood pressure Provider Name and Address Organization Details Last Updated DateTime 5 89924 g 82 /min 16 /min 97.2 [degF] 95 % 95 % 134 mm[Hg] 60 mm[Hg] Jasmin La NP [address] [facility], [facility] [address], [place], [address], [facility] 5 20:25:18 Date Recorded Systolic blood pressure Diastolic blood pressure Provider Name and Address Organization Details Last Updated DateTime 03/25/2024 112 mm[Hg] 78 mm[Hg] Jatin Landis MD [address] [facility], [facility] [address], [place], [address], [facility] 03/25/2024 10:06:23 Social History Question Answer Notes LastModified by Organizat ion Details LastModified Time Tobacco Smoking Status Never Smoker JAVY MABRY NP [address] [facility], [facility] [address], [place], [address], [facility] 03/23/2024 14:49:48 Do You Have An [...] syncytial virus (RSV), unspecified 3 completed Eulalia [facility] 03/26/2024 14:51:00 Hep B, unspecified formulation 8 completed Eulalia [facility] 03/26/2024 14:51:16 Tdap 5 completed Eulalia [facility] 03/26/2024 14:51:30 Pneumococcal conjugate PCV 13 3 completed Eulalia [facility] 03/26/2024 14:55:05 pneumococcal polysaccharide PPV23 6 completed Eulalia [facility] 03/26/2024 14:55:34 pneumococcal polysaccharide PPV23 6 completed Eulalia [facility] 03/26/2024 14:55:41 influenza, unspecified formulation 2 completed Eulalia [facility] 03/26/2024 14:56:07 influenza, unspecified formulation 3 completed Eulalia [facility] 03/26/2024 14:56:17 influenza, unspecified formulation 4 completed Eulalia [facility] 03/26/2024 14:56:27 meningococcal ACWY, unspecified formulation 9 completed Eulalia [facility] 03/26/2024 14:56:54 SARS-COV-2 (COVID-19) vaccine, UNSPECIFIED 1 completed Eulaliabirdie [facility] 03/26/2024 14:57:07 SARS-COV-2 (COVID-19) vaccine, UNSPECIFIED 1 completed Eulaliabirdie [facility] 03/26/2024 14:57:15 SARS-COV-2 (COVID-19) vaccine, UNSPECIFIED 1 completed Eulaliabirdie [facility] 03/26/2024 14:57:24 SARS-COV-2 (COVID-19) vaccine, UNSPECIFIED 2 completed Eulalia [facility] 03/26/2024 14:57:32 SARS-COV-2 (COVID-19) vaccine, UNSPECIFIED 2 completed Eulalia [facility] 03/26/2024 14:57:40 SARS-COV-2 (COVID-19) vaccine, UNSPECIFIED 3 completed Eulalia [facility] 03/26/2024 14:57:48 zoster, unspecified formulation 3 completed Eulaliabirdie [facility] 03/26/2024 14:58:02 zoster, unspecified formulation 3 completed [facility] 03/26/2024 14:58:10 Past Encounters Encounter ID Performer Location Encounter Start Date Encounter Closed Date Diagnosis/Indication Diagnosis SNOMED-CT Code Diagnosis ICD10 Code Diagnosis Note [id number] JAVY MABRY NP [facility] [address] [place] [address] 03/23/2024 14:38:33 03/25/2024 12:39:17 Alcohol abuse 92041167 F10.10 monitor for any signs of withdrawlf olic 1 mg dailyNaltr exone 60 mg dailyThiam ine 100 mg dailyMag ox 400 mg dailymvi dailyVit C 500 dailyBuspa r 10 mg bidCymbalt a 60 mg dailyWellb utrin 150 mg daily Osteomyelitis 77323704 M 86.9 Doxycyline 100 mg bid to 30monit or for any signs of infections [place] of skin [address]27 42820 01 T14.8XXA Doxycyline 100 mg bid to 03/25monit or for any signs of infections wound consult [place] 252373121 R29.6 PTOT eval and treatfall precaution sfrequent safety checks Atrial fibrillation 4943 6004 I48.91 Diltiazem er 180 mg dailyMetop rolol 25 mg bidmonitor heart rate Essential hypertension 94863979 I10 Diltiazem er 180 mg dailyMetop rolol 25 mg bidmonitor bp Hyperlipidemia 28607203 E78.5 atorvastat in 20 mg daily Type 2 dylon betes mellitus 13782934 E11.9 monitor glucose [id number] [facility] [address] 03/25/2024 10:05:56 03/26/2024 13:18:46 Alcohol abuse 71653282 F10.132 see HPIcontinu ed on thiamine and supplement seval by addiction med in hospitalso [facility] work to be involved at [facility] need for increased support in community Osteomyelitis 76990660 M 86.052 carrying dx left chronic osteo at bka sitestarte d empiricall y on doxy through 03/25repea t cbcID / ortho eval prnmonitor siteupdate ortho with concerns Open wound of skin 37307 73556 01 T14.8XXA see above with chronic infection Atrial fibrillation 4943 6004 I48.0 pradaxa 150 mg bidmetopro lol 25 mg bidmonitor for rate control Essential hypertension 23538106 I10 Diltiazem 180 mg qdlisinopr il 10 mg qdMetoprol ol 25 mg bidmonitor bp and need to titrate Hyperlipidemia 26634278 E78.2 lipitor 20 mg qdcontinue d Type 2 dylon betes mellitus 47023898 E11.9 diet controlled now off metforminm ost recent hba1c wnrmonitor accucheck prn Asthenia 09225910 R53.1 weakness and gait instabilit yPT OT Eval and treatmonit or fall risk and need for increased support in community Marginal z one lymphoma 412047263 C83.07 carrying dx added to PMHlimited informatio n availabler equest prior notes from PCP Benign pro static hyperplasia without outflow obstruction 735265299 N40.0 added to PMHmonitor for retention [id number] Jasmin La NP [address] [place] [address] 03/28/2024 16:08:27 03/29/2024 11:48:40 Alcohol abuse 78270512 F10.132 see HPInaltrex one 50 mg po qdcontinue d on thiamine and supplement seval'd by addiction services in hospitalso cial [facility] need for increased support in community Osteomyelitis 82520094 M 86.052 carrying dx left chronic osteo at bka sitecomple nori doxy empiricall y through 03/25ID / ortho eval prnmonitor siteupdate ortho with concerns Open wound of skin 61870 82766 01 T14.8XXA see above with chronic infection Asthenia 27529990 R53.1 weakness and gait instabilit yPT OT Eval and treatmonit or fall risk and need for increased support in community Atrial fibrillation 4943 6004 I48.0 contpradax a 150 mg bidmetopro lol 25 mg bidmonitor for rate control Essential hypertension 81608754 I10 controlled contDiltia zem 180 mg qdlisinopr il 10 mg qdMetoprol ol 25 mg bidmonitor bp and need to titrate Hyperlipidemia 93329649 E78.2 lipitor 20 mg qdcontinue d Type 2 dylon betes mellitus 08788668 E11.9 diet controlled , reportedha d low BS in hospital with possible low BS related to skin conditionn ow off metforminm ost recent hba1c wnrmonitor accucheck prn Marginal z one lymphoma 254662072 C83.07 with hx oflimited informatio n availablef u with oncology 04/05 Atopic dermatitis 920108 01 L20.9 pt with notable scab like [...] cular 04/11 @ 13pm. Rheumatoid arthritis 698 14338 M06.9 he denies arthritis today however has likely underlying arthritisf u with Rheumatoid appt with Dr Hart 07/04 @ 11am. [id number] Jasmin La NP [address] [address] 04/05/2024 12:48:06 04/09/2024 09:15:27 Atopic dermatitis 56433738 L20.9 pt with notable scab like ulceration [...] changesVas cular 04/11 @ 13pm. Alcohol abuse 73178274 F 10.132 see HPInaltrex one 50 mg po qdcontinue d on thiamine and supplement seval'd by addiction services in hospitalso hi work to be involved at [facility] need for increased support in community Osteomyelitis 32419089 M 86.052 carrying dx left chronic osteo at bka sitecomple nori doxy empiricall y through 03/25ID / ortho eval prnmonitor site for s/s infectionu pdate ortho with concerns Open wound of skin 86988 76609 01 T14.8XXA see above with chronic infection Asthenia 75237700 R53.1 weakness and gait instabilit yPT OT Eval and treatmonit or fall risk and need for increased support in community Atrial fibrillation 4943 6004 I48.0 contpradax a 150 mg bidmetopro lol 25 mg bidmonitor for rate control Essential hypertension 82309373 I10 controlled contDiltia zem 180 mg qdlisinopr il 10 mg qdMetoprol ol 25 mg bidmonitor bp and need to titrate Hyperlipidemia 52773143 E78.2 lipitor 20 mg qdcontinue d Type 2 dylon betes mellitus 30903376 E11.9 diet controlled , reportedha d low BS in hospital with possible low BS related to skin conditionn ow off metforminm ost recent hba1c wnrmonitor accucheck prn Marginal z one lymphoma 919879468 C83.07 with hx oflimited informatio n availablef u with oncology 04/05result s and consult pending Rheumatoid arthritis 698 23097 M06.9 he denies arthritis today however has likely underlying arthritisf u with Rheumatoid appt with Dr Hart 07/04 @ 11am. Health Concerns Section Related Observation LastModified by Organization Detai ls LastModified Time None Recorded Concern Status LastModified by Organization Details LastModified Time None Recorded Advance Directives Directive Y: Payers Encounter Date Sequence Insurance Name Policy Number Policy Alba Covered Member ID Alba Member ID Guarantor Name 03/23/2024 1 [place] [facility] [id number] [facility] 03/25/2024 1 [place] B[place] [facility] [id number] [facility] 03/25/2024 2 [place] [facility] [id number] [facility] 03/28/2024 1 [place] [facility] [id number] [facility] 03/28/2024 2 [place] [facility] [id number] [facility] 04/05/2024 1 [employer] (MEDICARE REPLACEMENT PPO) [id number] [id number] Notes Date Note Type Note Provider Name and Address Organization Details Recorded Time 4 text/htm l seen today for initial intake visit-Ashley admitted to for rehab and wound care, he went to the Ed after experiencing hallucinations and delusions during episode of ETOH withdrawl, CIWA was 12, non compliant with his medications as well, tx with Haldol and Ativan then Phenobarb protocol, IVF. He has open wound on his stump, not visualized today but being treated with Doxycycline and wound care. CAOx3 speech rambling and passing aimlessly from one subject to another. JAVY MABRY, DAVIDA [address] [facility], [address], [place], [address], [facility] - [facility] 03/23/2024 15:11:32 4 text/htm l Patient is a 69 yo male admit from hospital after presenting with altered mental status and delusions/hallucinations while withdrawal from ETOH. Started on phenobarbital. Patient eval by addiction med, psych, wound care and cards. 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 started empirically on doxy PMH significant forcada fibchronic osteomyelitis left BKA sitehtnhldetohdmmarginal zone lymphoma spleengoutbphmood disorder admit to facility for continued care and therapy Jatin Landis MD [address] [facility], [address], [place], [address], [facility] 03/25/2024 10:32:21 5 text/htm l Pt is seen for an acute rounding visit.PMH: cad, dm, lbka, afib, htn, hld, left shoulder fracture, gout, etoh, non healing wound left bka Ashley is a 69 yo male admit from hospital after presenting with altered mental status and delusions/hallucinations with withdrawal from ETOH and non complaint with meds. He was started on phenobarbital.While in the hospital he was eval by addiction med, psych, wound care and cards. 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 He is followed by wound care for his L BKA last seen on 03/26 rec collagen dressing qd and prn with no obvious s/s of infection and improving on exam. On exam, Ashley is seen for nursing concerns of peeling dry skin to the hands and in between the webs of the fingers. He admits to peeling back scabs on hands recently. He denies any itching, trauma, or hx of ezcema or psoriasis recently. of note: Has an oncology appt 04/05 @11am. Vascular 04/11 @ 13pm. Rheumatoid appt with Dr Hart 07/04 @ 11am. Dr Coronel leaving practice soonest appt was taken. Jasmin La NP [address] [facility], [address], [place], [address], [facility] 03/28/2024 19:26:02 5 text/htm l Pt is seen for an acute rounding visit. PMH: cad, dm, lbka, [...] after presenting with altered mental status and delusions/hallucinations with withdrawal from ETOH and non complaint [...] was taken. Jasmin La, DAVIDA [address] [facility], [address], [place], [address], [facility] - [facility] 04/05/2024 20:47:53
--- OUTSIDE RECORDS SUMMARY | 2024-04-11 18:10 | XMS_ITS | Continuity of Care Document ---
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 Plan of Treatment [...] Organization Details Recorded Time Atrial fibrillatio n 39575569 Active 2023 JAVY MABRY NP [address] [facility], [facility] [address], [address], [facility] 4 14:46:48 Osteomyelit is 53774429 Active 2023 JAVY MABRY NP [address] [facility], [address], [place], [address], [facility] [employer] [facility] 4 14:46:56 Open wound of skin 589345127808 Active 2023 JOSH MABRY NP [address] [facility], [address], [place], [address], [facility] [employer] [facility] 4 14:47:21 Essential hypertensio n 81761845 Active 2023 JAVY MABRY NP [address] [facility], [address], [place], [address], [facility] [employer] [employer] [facility] 4 14:47:31 Hyperlipide pablo 51802709 Active 2023 JAVY MABRY NP [address] [facility], [address], [place], [address], [facility] 4 14:47:35 Alcohol abuse 64739721 Active 2023 JAVY MABRY NP [address] [facility], [address], [place], [address], [facility] 4 14:47:58 Falls 657905984 Active 2023 JAVY MABRY NP [address] [facility], [address], [place], [address], [facility] 4 14:53:49 Type 2 diabetes mellitus 09416943 Active 2023 JAVY MABRY NP [address] [facility], [address], [place], [address], [facility] 4 15:00:44 Marginal zone lymphoma 313692028 Active 2023 Jatin Landis MD [address] [facility], [address], [place], [address], [facility] 4 10:17:07 Benign prostatic hyperplasia without outflow obstruction 540042450 Active 2023 Jatin Landis MD [address] [facility], [address], [place], [address], [facility] 4 10:17:13 Problem Notes None recorded. Medical Equipment None Reported. Allergies Allergen ID Allergen Name Allergen Category Reaction Reaction Severity Criticality Documentation Date Start Date Code Code System Note Provider Name and Address Organization Details Recorded Time [id number] 0579238w1 2824e Bactrim medicatio n Not available Not available Not available 03/23/2024 53765 9 RxNorm Not Available Not Available Not Available [id number] 6717163m7 2824e vancomyci n medicatio n Not available Not available Not available 03/23/2024 53664 RxNorm Not Available Not Available Not Available Medications Not known to be on any medication Vitals Date Recorded Body weight Heart rate Respiratory rate Body temperature Oxygen saturation Oxygen saturation in Arterial blood by Pulse oximetry Systolic blood pressure Diastolic blood pressure Provider Name and Address Organization Details Last Updated DateTime 4 53596.9 2 g 74 /min 16 /min 97.1 [degF] 97 % 97 % 102 mm[Hg] 65 mm[Hg] JAVY MABRY NP [address] [facility], [address], [place], [address], [facility] 4 14:45:21 Social History Question Answer Notes LastModified by Organizat ion Details LastModified Time Tobacco Smoking Status Never Smoker JAVY MABRY NP [address] [facility], [address], [place], [address], [facility] 03/23/2024 14:49:48 Do You Have An [...] virus (RSV), unspecified 3 completed Eulalia brasher [facility] [employer] [facility] 03/26/2024 14:51:00 Hep B, unspecified formulation 8 completed Eulalia brasher [facility] 03/26/2024 14:51:16 Tdap 5 completed Eulalia brasher [facility] [employer] [facility] 03/26/2024 14:51:30 Pneumococcal conjugate PCV 13 3 gissel brasher [facility] 03/26/2024 14:55:05 pneumococcal polysaccharide PPV23 6 completed Eulalia Prateek null, [facility] 03/26/2024 14:55:34 pneumococcal polysaccharide PPV23 6 completed Eulalia Prateek null, [facility] 03/26/2024 14:55:41 influenza, unspecified formulation 2 completed Eulalia Prateek null, [facility] 03/26/2024 14:56:07 influenza, unspecified formulation 3 completed Eulalia Prateek null, [facility] 03/26/2024 14:56:17 influenza, unspecified formulation 4 completed Eulalia Prateek null, [facility] 03/26/2024 14:56:27 meningococcal ACWY, unspecified formulation 9 completed Eulalia Prateek null, [facility] 03/26/2024 14:56:54 SARS-COV-2 (COVID-19) vaccine, UNSPECIFIED 1 completed Eulalia Prateek null, [facility] 03/26/2024 14:57:07 SARS-COV-2 (COVID-19) vaccine, UNSPECIFIED 1 completed Eulalia Prateek null, [facility] 03/26/2024 14:57:15 SARS-COV-2 (COVID-19) vaccine, UNSPECIFIED 1 completed Eulalia Prateek null, [facility] 03/26/2024 14:57:24 SARS-COV-2 (COVID-19) vaccine, UNSPECIFIED 2 completed Eulalia Prateek null, [facility] 03/26/2024 14:57:32 SARS-COV-2 (COVID-19) vaccine, UNSPECIFIED 2 completed Eulalia Prateek null, [facility] 03/26/2024 14:57:40 SARS-COV-2 (COVID-19) vaccine, UNSPECIFIED 3 completed Eulalia Prateek null, [facility] 03/26/2024 14:57:48 zoster, unspecified formulation 3 completed Eulalia Prateek null, [facility] 03/26/2024 14:58:02 zoster, unspecified formulation 3 completed Eulalia Chandra sameera MD - [facility] 03/26/2024 14:58:10 Past Encounters Encounter ID Performer Location Encounter Start Date Encounter Closed Date Diagnosis/Indication Diagnosis SNOMED-CT Code Diagnosis ICD10 Code Diagnosis Note [id number] JAVY MABRY NP [facility] [address] [place] [address] 03/23/2024 14:38:33 03/25/2024 12:39:17 Alcohol abuse 46340531 F10.10 monitor for any signs of withdrawlf olic 1 mg dailyNaltr exone 60 mg dailyThiam ine 100 mg dailyMag ox 400 mg dailymvi dailyVit C 500 dailyBuspa r 10 mg bidCymbalt a 60 mg dailyWellb utrin 150 mg daily Osteomyelitis 81264210 M 86.9 Doxycyline 100 mg bid to 03/25monit or for any signs of infections [place] [address] 0[address]46 01 T14.8XXA Doxycyline 100 mg bid to 03/25monit or for any signs of infections wound consult [place] 924602120 R29.6 PTOT eval and treatfall precaution sfrequent safety checks Atrial fibrillation 4943 6004 I48.91 Diltiazem er 180 mg dailyMetop rolol 25 mg bidmonitor heart rate Essential hypertension 07172091 I10 Diltiazem er 180 mg dailyMetop rolol 25 mg bidmonitor bp Hyperlipidemia 10825723 E78.5 atorvastat in 20 mg daily Type 2 dylon betes mellitus 77729502 E11.9 monitor glucose Health Concerns Section Related Observation LastModified by Organization Detai ls LastModified Time None Recorded Concern Status LastModified by Organization Details LastModified Time None Recorded Payers Encounter Date Sequence Insurance Name Policy Number Policy Alba Covered Member ID Alba Member ID Guarantor Name 03/23/2024 1 [place] [employer] Ashley Francis [id number] Ashley Francis Notes Date Note Type Note Provider Name and Address Organization Details Recorded Time 03/23/2024 text/html seen today for initial intake visit-Ashley admitted [...] to another. JAVY MABRY, DAVIDA [address] [facility], [address], [place], [address], [facility] 03/23/2024 15:11:32
--- OUTSIDE RECORDS SUMMARY | 2024-04-11 18:10 | XMS_ITS | Continuity of Care Document ---
[facility] Address [address] [place] [address] Care Team Providers Care Instrument And Control Service Person Name Role Phone DONOVAN KWOK - 2ND FLOOR OTHER ZANE SANTANA Primary Care Provider [phone] Assessment No assessment recorded. Plan of Treatment [...] Organization Details Recorded Time Atrial fibrillatio n 28917432 Active 2023 JAVY MABRY NP [address] [facility], [facility] [address], [address], [facility] [employer] [facility] 4 14:46:48 Osteomyelit is 99777782 Active 2023 JAVY MABRY NP [address] [facility], [address], [place], [address], [facility] [employer] [facility] 4 14:46:56 Open wound of skin 688774162526 Active 2023 JOSH MABRY NP [address] [facility], [address], [place], [address], [facility] [employer] [facility] 4 14:47:21 Essential hypertensio n 70604147 Active 2023 JAVY MABRY NP [address] [facility], [address], [place], [address], [facility] [employer] [facility] 4 14:47:31 Hyperlipide pablo 03041853 Active 2023 JAVY MABRY NP [address] [facility], [address], [place], [address], [facility] 4 14:47:35 Alcohol abuse 25754731 Active 2023 JAVY MABRY NP [address] [facility], [address], [place], [address], [facility] 4 14:47:58 Falls 782573490 Active 2023 JAVY MABRY NP [address] [facility], [address], [place], [address], [facility] 4 14:53:49 Type 2 diabetes mellitus 82992252 Active 2023 JAVY MABRY NP [address] [facility], [address], [place], [address], [facility] 4 15:00:44 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 Medical Equipment None Reported. Allergies Allergen ID Allergen Name Allergen Category Reaction Reaction Severity Criticality Documentation Date Start Date Code Code System Note Provider Name and Address Organization Details Recorded Time [id number] 920685857 6750615a9 2824e Bactrim medicatio n Not available Not available Not available 03/23/2024 01718 9 RxNorm Not Available Not Available Not Available [id number] 154153810 3124078c9 2824e vancomyci n medicatio n Not available Not available Not available 03/23/2024 74315 RxNorm Not Available Not Available Not Available Medications Not known to be on any medication Vitals Date Recorded Body weight Heart rate Respiratory rate Body temperature Oxygen saturation Oxygen saturation in Arterial blood by Pulse oximetry Systolic blood pressure Diastolic blood pressure Provider Name and Address Organization Details Last Updated DateTime 5 45321.4 4 g 67 /min 18 /min 97.4 [degF] 98 % 98 % 150 mm[Hg] 80 mm[Hg] Jasmin La, DAVIDA [address] [facility], [address], [place], [address], [facility] 5 16:11:23 Social History Question Answer Notes LastModified by Organizat ion Details LastModified Time Tobacco Smoking Status Never Smoker JAVY MABRY, DAVIDA [address] [facility], [address], [place], [address], [facility] 03/23/2024 14:49:48 Do You Have An [...] virus (RSV), unspecified 3 completed Eulalia brasher [facility] 03/26/2024 14:51:00 Hep B, unspecified formulation 8 completed Eulalia brasher [facility] 03/26/2024 14:51:16 Tdap 5 completed Eulalia brasher [facility] 03/26/2024 14:51:30 Pneumococcal conjugate PCV 13 3 completed Eulalia brasher [facility] 03/26/2024 14:55:05 pneumococcal polysaccharide PPV23 6 completed Eulalia Prateek null, [facility] 03/26/2024 14:55:34 pneumococcal polysaccharide PPV23 6 completed Eulalia Prateek null, [facility] 03/26/2024 14:55:41 influenza, unspecified formulation 2 completed Eulalia Prateek null, [facility] 03/26/2024 14:56:07 influenza, unspecified formulation 3 completed Eulalia Prateek null, [facility] 03/26/2024 14:56:17 influenza, unspecified formulation 4 completed Eulalia Prateek null, [facility] 03/26/2024 14:56:27 meningococcal ACWY, unspecified formulation 9 completed Eulalia Prateek null, [facility] 03/26/2024 14:56:54 SARS-COV-2 (COVID-19) vaccine, UNSPECIFIED 1 completed Eulalia Prateek null, [facility] 03/26/2024 14:57:07 SARS-COV-2 (COVID-19) vaccine, UNSPECIFIED 1 completed Eulalia Prateek null, [facility] 03/26/2024 14:57:15 SARS-COV-2 (COVID-19) vaccine, UNSPECIFIED 1 completed Eulalia Prateek null, [facility] 03/26/2024 14:57:24 SARS-COV-2 (COVID-19) vaccine, UNSPECIFIED 2 completed Eulalia Prateek null, [facility] 03/26/2024 14:57:32 SARS-COV-2 (COVID-19) vaccine, UNSPECIFIED 2 completed Eullaia Prateek null, [facility] 03/26/2024 14:57:40 SARS-COV-2 (COVID-19) vaccine, UNSPECIFIED 3 completed Eulalia Prateek null, [facility] 03/26/2024 14:57:48 zoster, unspecified formulation 3 completed Eulalia Prateek null, [facility] 03/26/2024 14:58:02 zoster, unspecified formulation 3 completed Eulalia [facility] 03/26/2024 14:58:10 Past Encounters Encounter ID Performer Location Encounter Start Date Encounter Closed Date Diagnosis/Indication Diagnosis SNOMED-CT Code Diagnosis ICD10 Code Diagnosis Note [id number] JAVY MABRY NP [address] [address] 03/23/2024 14:38:33 03/25/2024 12:39:17 Alcohol abuse 91772798 F10.10 monitor for any signs of withdrawlf olic 1 mg dailyNaltr exone 60 mg dailyThiam ine 100 mg dailyMag ox 400 mg dailymvi dailyVit C 500 dailyBuspa r 10 mg bidCymbalt a 60 mg dailyWellb utrin 150 mg daily Osteomyelitis 86069166 M 86.9 Doxycyline 100 mg bid to 03/25monit or for any signs of infections [place] [address] 36500 01 T14.8XXA Doxycyline 100 mg bid to 03/25monit or for any signs of infections wound consult [place] 382401816 R29.6 PTOT eval and treatfall precaution sfrequent safety checks Atrial fibrillation 4943 6004 I48.91 Diltiazem er 180 mg dailyMetop rolol 25 mg bidmonitor heart rate Essential hypertension 57180227 I10 Diltiazem er 180 mg dailyMetop rolol 25 mg bidmonitor bp Hyperlipidemia 67022852 E78.5 atorvastat in 20 mg daily Type 2 dylon betes mellitus 66670682 E11.9 monitor glucose [id number] Jatin Landis MD [address] [address] 03/25/2024 10:05:56 03/26/2024 13:18:46 Alcohol abuse 09895885 F10.132 see HPIcontinu ed on thiamine and supplement seval by addiction med in hospitalso cial work to be involved at facilitymo nitor need for increased support in community Osteomyelitis 43950244 M 86.052 carrying dx left chronic osteo at bka sitestarte d empiricall y on doxy through 03/25repea t cbcID / ortho eval prnmonitor siteupdate ortho with concerns Open wound of skin 15089 99334 01 T14.8XXA see above with chronic infection Atrial fibrillation 4943 6004 I48.0 pradaxa 150 mg bidmetopro lol 25 mg bidmonitor for rate control Essential hypertension 40750042 I10 Diltiazem 180 mg qdlisinopr il 10 mg qdMetoprol ol 25 mg bidmonitor bp and need to titrate Hyperlipidemia 09418374 E78.2 lipitor 20 mg qdcontinue d Type 2 dylon betes mellitus 70284418 E11.9 diet controlled now off metforminm ost recent hba1c wnrmonitor accucheck prn Asthenia 52383760 R53.1 weakness and gait instabilit yPT OT Eval and treatmonit or fall risk and need for increased support in community Marginal z one lymphoma 406022751 C83.07 carrying dx added to PMHlimited informatio n availabler equest prior notes from PCP Benign pro static hyperplasia without outflow obstruction 571780906 N40.0 added to PMHmonitor for retention [id number] Jasmin La NP [facility] [address] [address] 03/28/2024 16:08:27 03/29/2024 11:48:40 Alcohol abuse 45407026 F10.132 see HPInaltrex one 50 mg po qdcontinue d on thiamine and supplement seval'd by addiction services in hospitalso cia work to be involved at [facility] nitor need for increased support in community Osteomyelitis 48686423 M 86.052 carrying dx left chronic osteo at a sitecomple nori ramon empiricall y through 03/25ID / ortho eval prnmonitor siteupdate ortho with concerns Open wound of skin 20660 55947 01 T14.8XXA see above with chronic infection Asthenia 13166956 R53.1 weakness and gait instabilit yPT OT Eval and treatmonit or fall risk and need for increased support in community Atrial fibrillation 4943 6004 I48.0 contpradax a 150 mg bidmetopro lol 25 mg bidmonitor for rate control Essential hypertension 87587448 I10 controlled contDiltia zem 180 mg qdlisinopr il 10 mg qdMetoprol ol 25 mg bidmonitor bp and need to titrate Hyperlipidemia 04432158 E78.2 lipitor 20 mg qdcontinue d Type 2 dylon betes mellitus 90650998 E11.9 diet controlled , reportedha d low BS in hospital with possible low BS related to skin conditionn ow off metforminm ost recent hba1c wnrmonitor accucheck prn Marginal z one lymphoma 786146188 C83.07 with hx oflimited informatio n availablef u with oncology 04/05 Atopic dermatitis 751024 01 L20.9 pt with notable scab like [...] cular 04/11 @ 13pm. Rheumatoid arthritis 698 78225 M06.9 he denies arthritis today however has likely underlying arthritisf u with Rheumatoid appt with Dr Hart 07/04 @ 11am. Health Concerns Section Related Observation LastModified by Organization Detai ls LastModified Time None Recorded Concern Status LastModified by Organization Details LastModified Time None Recorded Payers Encounter Date Sequence Insurance Name Policy Number Policy Alba Covered Member ID Alba Member ID Guarantor Name 03/28/2024 1 [place] [employer] Ashley Francis [id number] Ashley Francis 03/28/2024 2 [place] [facility] Ashley Francis [id number] Ashley Francis Notes Date Note Type Note Provider Name and Address Organization Details Recorded Time 03/28/2024 text/html Pt is seen for a n acute rounding visit.PMH: cad, dm, lbka, afib, htn, hld, left shoulder fracture, gout, etoh, non healing wound left bka Ashley is a 69 yo male admit from hospital after presenting with altered mental status and delusions/hallucin ations with withdrawal from ETOH and non complaint with meds. He was started on phenobarbital.Whil e in the hospital he was eval by [...] soonest appt was taken. Jasmin La NP [address] [place] [address], [address], [place], [address], [facility] 03/28/2024 19:26:02
--- OUTSIDE RECORDS SUMMARY | 2024-04-11 18:10 | XMS_ITS | Data Portability ---
Author Organization [facility] Address [address] [place] [address] Care Team Providers Care Territory Representative Name Role Phone HIM MARY OTHER Assessment [...] Not available Not available Not available 01/23/2024 17992 RxNorm Not Available [facility] 4 03:38:22 7568 Bactrim medicatio n Not available Not available Not available 01/23/2024 53485 9 RxNorm Not Available [facility] production [...] /min 187.96 cm 100 % 100 % 63162.4 4 g 99.5 [degF] 18 /min 185 mm[Hg] 98 mm[Hg] Not Available [facility] 4 18:00:42 Social History None recorded. Functional Status None recorded. Mental Status None recorded. Family History Nothing Reported. Medical History No medical history recorded. Past Encounters Encounter ID Performer Location Encounter Start Date Encounter Closed Date Diagnosis/Indication Diagnosis SNOMED-CT Code Diagnosis ICD10 Code Diagnosis Note [id number] Carlos Loo MD [facility] [address] [place] [address] 09/12/2023 18:00:34 09/12/2023 21:22:44 Open wound of lower leg 007791937 S81.802A Health Concerns Section Related Observation LastModified by Organization Detai ls LastModified Time None Recorded Concern Status LastModified by Organization Details LastModified Time None Recorded Advance Directives Directive None Recorded Payers Encounter Date Sequence Insurance Name Policy Number Policy Alba Covered Member ID Alba Member ID Guarantor Name 09/12/2023 1 [facility] - DOS ON OR AFTER 2022 - DUAL ELIGIBLE - SENIOR LIVING OPTIONS AND ONE CARE (MEDICARE REPLACEMENT/ADV ANTAGE - HMO) Ashley Francis [id number] Ashley Francis Notes Date Note Type Note Provider Name and Address Organization Details Recorded Time 09/12/2023 text/html [facility] Nurse Triage Notes (Kristin Aguila): Reason For Request: [facility] member medical services coordinator Magaly reporting mbr is requesting [facility] for [...] won't speak with him. Member has [facility] and goes to the wound clinic 1 day week. [facility] did not see him yesterday because they thought he was still in the hospital. Member has wound cleanser, acquacel and bandages, but needs assistance and assessment. Member requesting an [facility] visit. .................... .................... .................... .................... .................... .................... .................... . Gas Distribution Supervisor Note From Mera Mukherjee: Sent to a [...] .................... .................... . Disposition: Musa Loo MD [address] [place] [address],[address], [place], [address], [facility] [employer] [facility] 09/12/2023 19:31:35
--- OUTSIDE RECORDS SUMMARY | 2024-04-11 18:10 | XMS_ITS | Continuity of Care Document ---
Author Organization [facility], [facility] Address [address] [place] [address] Care Team Providers Care Postage Machine Operator Name Role Phone DONOVAN KWOK - 2ND FLOOR OTHER ZANE SANTANA Primary Care Provider [phone] Assessment No assessment recorded. Plan of Treatment [...] Organization Details Recorded Time Atrial fibrillatio n 48202325 Active 2023 JAVY MABRY NP [address] [facility], [facility] [address], [place], [address], [facility] 4 14:46:48 Osteomyelit is 93809362 Active 2023 JAVY MABRY NP [address] [facility], [address], [place], [address], [facility] 4 14:46:56 Open wound of skin 114301340972 Active 2023 JOSH MABRY NP [address] [facility], [address], [place], [address], [facility] 4 14:47:21 Essential hypertensio n 84972347 Active 2023 JAVY MABRY NP [address] [facility], [address], [place], [address], [facility] 4 14:47:31 Hyperlipide pablo 15605900 Active 2023 JAVY MABRY NP [address] [facility], [address], [place], [address], [facility] 4 14:47:35 Alcohol abuse 47864917 Active 2023 JAVY MABRY NP [address] [facility], [address], [place], [address], [facility] 4 14:47:58 Falls 460102157 Active 2023 JAVY MABRY NP [address] [facility], [address], [place], [address], [facility] 4 14:53:49 Type 2 diabetes mellitus 10233466 Active 2023 JAVY MABRY NP [address] [facility], [address], [place], [address], [facility] 4 15:00:44 Marginal zone lymphoma 060760517 Active 2023 Jatin Landis MD [address] [facility], [address], [place], [address], [facility] 4 10:17:07 Benign prostatic hyperplasia without outflow obstruction 400369441 Active 2023 Jatin Landis MD [address] [facility], [address], [place], [address], [facility] 4 10:17:13 Problem Notes None recorded. Medical Equipment None Reported. Allergies Allergen ID Allergen Name Allergen Category Reaction Reaction Severity Criticality Documentation Date Start Date Code Code System Note Provider Name and Address Organization Details Recorded Time [id number] 2824e Bactrim medicatio n Not available Not available Not available 03/23/2024 75793 9 RxNorm Not Available Not Available Not Available [id number] 707073605 0370667l3 2824e vancomyci n medicatio n Not available Not available Not available 03/23/2024 27580 RxNorm Not Available Not Available Not Available Medications Not known to be on any medication Vitals Date Recorded Systolic blood pressure Diastolic blood pressure Provider Name and Address Organization Details Last Updated DateTime 03/25/2024 112 mm[Hg] 78 mm[Hg] Jatin Landis MD [address] [facility], [address], [place], [address], [facility] 03/25/2024 10:06:23 Social History Question Answer Notes LastModified by Organizat ion Details LastModified Time Tobacco Smoking Status Never Smoker JAVY MABRY NP [address] [facility], [address], [place], [address], [facility] 03/23/2024 14:49:48 Do You Have An [...] virus (RSV), unspecified [address] [facility] 03/26/2024 14:51:00 Hep B, unspecified formulation 8 completed Eulalia brasher [facility] 03/26/2024 14:51:16 [facility] 5 [facility]24 14:51:30 Pneumococcal conjugate PCV 13 3 completed Eulalia Chandra [facility] 03/26/2024 14:55:05 pneumococcal polysaccharide PPV23 [address] [facility] 03/26/2024 14:55:34 pneumococcal polysaccharide PPV23 6 completed Eulalia Prateek null, [facility] 03/26/2024 14:55:41 influenza, unspecified formulation 2 completed Eulalia Prateek null, [facility] 03/26/2024 14:56:07 influenza, unspecified formulation 3 completed Eulalia Prateek null, [facility] 03/26/2024 14:56:17 influenza, unspecified formulation 4 completed Eulalia Prateek null, [facility] 03/26/2024 14:56:27 meningococcal ACWY, unspecified formulation 9 completed Eulalia Prateek null, [facility] 03/26/2024 14:56:54 SARS-COV-2 (COVID-19) vaccine, UNSPECIFIED 1 completed Eulalia Prateek null, [facility] 03/26/2024 14:57:07 SARS-COV-2 (COVID-19) vaccine, UNSPECIFIED 1 completed Eulalia Prateek null, [facility] 03/26/2024 14:57:15 SARS-COV-2 (COVID-19) vaccine, UNSPECIFIED 1 completed Eulalia Prateek null, [facility] 03/26/2024 14:57:24 SARS-COV-2 (COVID-19) vaccine, UNSPECIFIED 2 completed Eulalia Prateek null, [facility] 03/26/2024 14:57:32 SARS-COV-2 (COVID-19) vaccine, UNSPECIFIED 2 completed Eulalia Prateek null, [facility] 03/26/2024 14:57:40 SARS-COV-2 (COVID-19) vaccine, UNSPECIFIED 3 completed Eulalia Prateek null, [facility] 03/26/2024 14:57:48 zoster, unspecified formulation 3 completed Eulalia Prateek null, [facility] 03/26/2024 14:58:02 zoster, unspecified formulation 3 completed Eulalia Prateek null, [facility] 03/26/2024 14:58:10 Past Encounters Encounter ID Performer Location Encounter Start Date Encounter Closed Date Diagnosis/Indication Diagnosis SNOMED-CT Code Diagnosis ICD10 Code Diagnosis Note [id number] JAVY MABRY NP [facility] [address] [address] 03/23/2024 14:38:33 03/25/2024 12:39:17 Alcohol abuse 57259437 F10.10 monitor for any signs of withdrawlf olic 1 mg dailyNaltr exone 60 mg dailyThiam ine 100 mg dailyMag ox 400 mg dailymvi dailyVit C 500 dailyBuspa r 10 mg bidCymbalt a 60 mg dailyWellb utrin 150 mg daily Osteomyelitis 78602513 M 86.9 Doxycyline 100 mg bid to 03/25monit or for any signs of infections [place] of skin 82882 11179 01 T14.8XXA Doxycyline 100 mg bid to 03/25monit or for any signs of infections wound consult [place] 707471169 R29.6 PTOT eval and treatfall precaution sfrequent safety checks Atrial fibrillation 4943 6004 I48.91 Diltiazem er 180 mg dailyMetop rolol 25 mg bidmonitor heart rate Essential hypertension 78530336 I10 Diltiazem er 180 mg dailyMetop rolol 25 mg bidmonitor bp Hyperlipidemia 45052333 E78.5 atorvastat in 20 mg daily Type 2 dylon betes mellitus 48108165 E11.9 monitor glucose [id number] Jatin Landis MD [facility] [address] [address] 03/25/2024 10:05:56 03/26/2024 13:18:46 Alcohol abuse 28497997 F10.132 see HPIcontinu ed on thiamine and supplement seval by addiction med [facility] hospital[facility] for [facility] in [facility] Osteomyelitis 10361114 M 86.052 carrying dx left chronic osteo at bka sitestarte d empiricall y on doxy through 03/25repea t cbcID / ortho eval prnmonitor siteupdate ortho with concerns Open wound of skin 39617 06779 01 T14.8XXA see above with chronic infection Atrial fibrillation 4943 6004 I48.0 pradaxa 150 mg bidmetopro lol 25 mg bidmonitor for rate control Essential hypertension 57922327 I10 Diltiazem 180 mg qdlisinopr il 10 mg qdMetoprol ol 25 mg bidmonitor bp and need to titrate Hyperlipidemia 70804983 E78.2 lipitor 20 mg qdcontinue d Type 2 dylon betes mellitus 33406992 E11.9 diet controlled now off metforminm ost recent hba1c wnrmonitor accucheck prn Asthenia 39256799 R53.1 weakness and gait instabilit yPT OT Eval and treatmonit or fall risk and need for increased support in community Marginal z one lymphoma 898858850 C83.07 carrying dx added to PMHlimited informatio n availabler equest prior notes from PCP Benign pro static hyperplasia without outflow obstruction 365856491 N40.0 added to PMHmonitor for retention Health Concerns Section Related Observation LastModified by Organization Detai ls LastModified Time None Recorded Concern Status LastModified by Organization Details LastModified Time None Recorded Payers Encounter Date Sequence Insurance Name Policy Number Policy Alba Covered Member ID Alba Member ID Guarantor Name 03/25/2024 1 [place] [employer] Ashley Francis [id number] [facility] 03/25/2024 2 [place] [facility] Ashley Francis [id number] [facility] Notes Date Note Type Note Provider Name and Address Organization Details Recorded Time 4 text/htm l Patient is a 69 [...] continued care and therapy Jatin Landis MD [address] [place] [address], [address], [place], [address], [facility] 03/25/2024 10:32:21
== END 2024-04-11 14:00 | disposition home or self-care (01) ==
PROVIDERS: PCP Internal Medicine; Visit Provider Surgery Vascular Surgery
DX: I73.9 Peripheral vascular disease, unspecified (principal)
CPT/HCPCS: 99214; G2211

== ENCOUNTER → 2024-04-11 13:47 | Outpatient (BNVA) | payer MEDICARE, SELFPAY | PROVIDERS: PCP Internal Medicine; Visit Provider Surgery Vascular Surgery | DX: I73.9 Peripheral vascular disease, unspecified (principal) | CPT/HCPCS: 99212 ==

== ENCOUNTER 2024-05-01 09:57 | Outpatient (REF) | payer MEDICARE, SELFPAY ==
--- OUTSIDE RECORDS SUMMARY | 2024-05-01 10:45 | XMS_ITS | Data Portability ---
Author Organization [facility] [place] [facility] Address [address] [place] [address] Care Team Providers Care Fish Header Name Role Phone HIM MARY OTHER Assessment [...] Not available Not available Not available 01/23/2024 64631 RxNorm Not Available [facility] 4 03:38:22 7568 Bactrim medicatio n Not available Not available Not available 01/23/2024 10652 9 RxNorm Not Available [facility] production [...] /min 187.96 cm 100 % 100 % 06887.4 4 g 99.5 [degF] 18 /min 185 mm[Hg] 98 mm[Hg] Not Available [facility] 4 18:00:42 Social History None recorded. Functional Status None recorded. Mental Status None recorded. Family History Nothing Reported. Medical History No medical history recorded. Past Encounters Encounter ID Performer Location Encounter Start Date Encounter Closed Date Diagnosis/Indication Diagnosis SNOMED-CT Code Diagnosis ICD10 Code Diagnosis Note [id number] Carlos Loo MD [facility] [address] [place] [address] 09/12/2023 18:00:34 09/12/2023 21:22:44 Open wound of lower leg 755056877 S81.802A Health Concerns Section Related Observation LastModified by Organization Detai ls LastModified Time None Recorded Concern Status LastModified by Organization Details LastModified Time None Recorded Advance Directives Directive None Recorded Payers Encounter Date Sequence Insurance Name Policy Number Policy Alba Covered Member ID Alba Member ID Guarantor Name 09/12/2023 1 [facility] - DOS ON OR AFTER 2022 - DUAL ELIGIBLE - RETIREMENT OPTIONS AND ONE CARE (MEDICARE REPLACEMENT/ADV ANTAGE - HMO) Ashley Francis [id number] Ashley Francis Notes Date Note Type Note Provider Name and Address Organization Details Recorded Time 09/12/2023 text/html CRC Nurse Triage Notes (Kristin Aguila): Reason For Request: [facility] member donor services specialist Magaly reporting mbr is requesting [facility] for [...] .................... .................... .................... .................... .................... .................... . Membership Correspondent Note From Mera Mukherjee: Sent to a [...] .................... .................... . Disposition: Musa Loo MD [address] [place] [address],[address], [place], [address], [employer] [facility] 09/12/2023 19:31:35
--- OUTSIDE RECORDS SUMMARY | 2024-05-01 10:46 | XMS_ITS | Continuity of Care Document ---
Author Organization [facility], [facility] Address [address] [place] [address] Care Team Providers Care Stock Transfer Clerk Name Role Phone DONOVAN KWOK - 2ND [...] Organization Details Recorded Time Atrial fibrillatio n 05399429 Active 2023 JAVY MABRY NP 38 [facility], [facility] [address], [address], [facility] 4 14:46:48 Osteomyelit is 12907345 Active 2023 JAVY MABRY NP 38 [facility], [address], [place], [address], [facility] 4 14:46:56 Open wound of skin 343336959452 Active 2023 JOSH MABRY NP 38 [facility], [address], [place], [address], [facility] 4 14:47:21 Essential hypertensio n 33333961 Active 2023 JAVY MABRY NP 38 [facility], [address], [place], [address], [facility] 4 14:47:31 Hyperlipide pablo 15194200 Active 2023 JAVY MABRY NP [address] [facility], [address], [place], [address], [facility] 4 14:47:35 Alcohol abuse 28940206 Active 2023 JAVY MABRY NP [address], [address], [place], [address], [facility] 4 14:47:58 Falls 987563809 Active 2023 JAVY MABRY NP 38 [facility], [address], [place], [address], [facility] 4 14:53:49 Type 2 diabetes mellitus 28659719 Active 2023 JAVY MABRY NP [address] [facility], [address], [place], [address], [facility] 4 15:00:44 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 Medical Equipment None Reported. Allergies Allergen ID Allergen Name Allergen Category Reaction Reaction Severity Criticality Documentation Date Start Date Code Code System Note Provider Name and Address Organization Details Recorded Time 74194 Bactrim medicatio n Not available Not available Not available 03/23/2024 27351 9 RxNorm Not Available Not Available Not Available 18844 vancomyci n medicatio n Not available Not available Not available 03/23/2024 72994 RxNorm Not Available Not Available Not Available Medications Not known to be on any medication Vitals Date Recorded Body weight Heart rate Respiratory rate Body temperature Oxygen saturation Oxygen saturation in Arterial blood by Pulse oximetry Systolic blood pressure Diastolic blood pressure Provider Name and Address Organization Details Last Updated DateTime 5 44480 g 82 /min 16 /min 97.2 [degF] 95 % 95 % 134 mm[Hg] 60 mm[Hg] Jasmin La, THERMAL SPRAY OPERATOR [address] [facility], [address], [place], [address], [facility] 5 20:25:18 Social History Question Answer Notes LastModified by Organizat ion Details LastModified Time Tobacco Smoking Status Never Smoker JAVY MABRY, DAVIDA [address] [facility], [address], [place], [address], [facility] 03/23/2024 14:49:48 Do You Have An [...] syncytial virus (RSV), unspecified 3 [facility] 14:51:00 Hep B, unspecified formulation 8 completed Eulalia brasher [facility] 03/26/2024 14:51:16 [facility]dap 5 [facility]/26/[facility]24 14:51:30 Pneumococcal conjugate PCV 13 3 completed Eulalia brasher [facility] 03/26/2024 14:55:05 pneumococcal polysaccharide PPV23 6 completed Eulalia brasher [facility] 03/26/2024 14:55:34 pneumococcal polysaccharide PPV23 6 completed Eulalia Prateek [facility], [facility] 03/26/2024 14:55:41 influenza, unspecified formulation 2 completed Eulalia Prateek null, [facility] 03/26/2024 14:56:07 influenza, unspecified formulation 3 completed Eulalia Prateek null, [facility] 03/26/2024 14:56:17 influenza, unspecified formulation 4 completed Eulalia Prateek null, [facility] 03/26/2024 14:56:27 meningococcal ACWY, unspecified formulation 9 completed Eulalia Prateek null, [facility] 03/26/2024 14:56:54 SARS-COV-2 (COVID-19) vaccine, UNSPECIFIED 1 completed Eulalia Prateek null, [facility] 03/26/2024 14:57:07 SARS-COV-2 (COVID-19) vaccine, UNSPECIFIED 1 completed Eulalia Prateek null, [facility] 03/26/2024 14:57:15 SARS-COV-2 (COVID-19) vaccine, UNSPECIFIED 1 completed Eulalia Prateek null, [facility] 03/26/2024 14:57:24 SARS-COV-2 (COVID-19) vaccine, UNSPECIFIED 2 completed Eulalia Prateek null, [facility] 03/26/2024 14:57:32 SARS-COV-2 (COVID-19) vaccine, UNSPECIFIED 2 completed Eulalia Prateek null, [facility] 03/26/2024 14:57:40 SARS-COV-2 (COVID-19) vaccine, UNSPECIFIED 3 completed Eulalia Prateek null, [facility] 03/26/2024 14:57:48 zoster, unspecified formulation 3 completed Eulalia Prateek null, [facility] 03/26/2024 14:58:02 zoster, unspecified formulation 3 completed Eulalia Prateek null, [facility] 03/26/2024 14:58:10 Past Encounters Encounter ID Performer Location Encounter Start Date Encounter Closed Date Diagnosis/Indication Diagnosis SNOMED-CT Code Diagnosis ICD10 Code Diagnosis Note [id number] JAVY MABRY NP [facility] [address] 03/23/2024 14:38:33 03/25/2024 12:39:17 Alcohol abuse 11598638 F10.10 monitor for any signs of withdrawlf olic 1 mg dailyNaltr exone 60 mg dailyThiam ine 100 mg dailyMag ox 400 mg dailymvi dailyVit C 500 dailyBuspa r 10 mg bidCymbalt a 60 mg dailyWellb utrin 150 mg daily Osteomyelitis 41597935 M 86.9 Doxycyline 100 mg bid to 03/25monit or for any signs of infections [place] of skin 75837 48832 01 T14.8XXA Doxycyline 100 mg bid to 03/25monit or for any signs of infections wound consult [place] 780021462 R29.6 PTOT eval and treatfall precaution sfrequent safety checks Atrial fibrillation 4943 6004 I48.91 Diltiazem er 180 mg dailyMetop rolol 25 mg bidmonitor heart rate Essential hypertension 21826988 I10 Diltiazem er 180 mg dailyMetop rolol 25 mg bidmonitor bp Hyperlipidemia 77313831 E78.5 atorvastat in 20 mg daily Type 2 dylon betes mellitus 55750086 E11.9 monitor glucose [id number] Jatin Landis MD [facility] [address] [address] 03/25/2024 10:05:56 03/26/2024 13:18:46 Alcohol abuse 36225829 F10.132 see HPIcontinu ed on thiamine and supplement seval by addiction med [facility] hospitalso [facility] for increased support in community Osteomyelitis 14646202 M 86.052 carrying dx left chronic osteo at bka sitestarte d empiricall y on doxy through 03/25repea t cbcID / ortho eval prnmonitor siteupdate ortho with concerns [place] wound of skin 51515 18357 01 T14.8XXA see above with chronic infection Atrial fibrillation 4943 6004 I48.0 pradaxa 150 mg bidmetopro lol 25 mg bidmonitor for rate control Essential hypertension 39170057 I10 Diltiazem 180 mg qdlisinopr il 10 mg qdMetoprol ol 25 mg bidmonitor bp and need to titrate Hyperlipidemia 08451862 E78.2 lipitor 20 mg qdcontinue d Type 2 dylon betes mellitus 37389330 E11.9 diet controlled now off metforminm ost recent hba1c wnrmonitor accucheck prn Asthenia 64782860 R53.1 weakness and gait instabilit yPT OT Eval and treatmonit or fall risk and need for increased support in community Marginal z one lymphoma 197348035 C83.07 carrying dx added to PMHlimited informatio n availabler equest prior notes from PCP Benign pro static hyperplasia without outflow obstruction 584436252 N40.0 added to PMHmonitor for retention [id number] Jasmin La NP [facility] [address] 03/28/2024 16:08:27 03/29/2024 11:48:40 Alcohol abuse 24380356 F10.132 see HPInaltrex one 50 mg po qdcontinue d on thiamine and supplement [facility]'d [facility] work [facility] need for increased support in community Osteomyelitis 26159452 M 86.052 carrying dx left chronic osteo at [facility] sitecomple nori doxy empiricall y through 03/25ID / ortho eval prnmonitor siteupdate ortho with concerns Open wound of skin 58241 [address]1287 01 T14.8XXA see above with chronic infection Asthenia 59438887 R53.1 weakness and gait instabilit yPT OT Eval and treatmonit or fall risk and need for increased support in community Atrial fibrillation 4943 6004 I48.0 contpradax a 150 mg bidmetopro lol 25 mg bidmonitor for rate control Essential hypertension 28039325 I10 controlled contDiltia zem 180 mg qdlisinopr il 10 mg qdMetoprol ol 25 mg bidmonitor bp and need to titrate Hyperlipidemia 54360630 E78.2 lipitor 20 mg qdcontinue d Type 2 dylon betes mellitus 52673600 E11.9 diet controlled , reportedha d low BS in hospital with possible low BS related to skin conditionn ow off metforminm ost recent hba1c wnrmonitor accucheck prn Marginal z one lymphoma 978244742 C83.07 with hx oflimited informatio n availablef u with oncology 04/05 Atopic dermatitis 992019 01 L20.9 pt with notable scab like [...] cular 04/11 @ 13pm. Rheumatoid arthritis 698 04403 M06.9 he denies arthritis today however has likely underlying arthritisf u with Rheumatoid appt with Dr Hart 07/04 @ 11am. [id number] Jasmin La NP [address] [address] 04/05/2024 12:48:06 04/09/2024 09:15:27 Atopic dermatitis 37498799 L20.9 pt with notable scab like ulceration [...] changesVas cular 04/11 @ 13pm. Alcohol abuse 41099192 F 10.132 see HPInaltrex one 50 mg po qdcontinue d on thiamine and supplement seval'd by addiction services in hospitalso cial work to be involved at facility[facility] nitor need for increased support in community Osteomyelitis 05369191 M 86.052 carrying dx left chronic osteo at bka sitecomple nroi doxy empiricall y through 03/25ID / ortho eval prnmonitor site for s/s infectionu pdate ortho with concerns Open wound of skin 02817 01012 01 T14.8XXA see above with chronic infection Asthenia 99198991 R53.1 weakness and gait instabilit yPT OT Eval and treatmonit or fall risk and need for increased support in community Atrial fibrillation 4943 6004 I48.0 contpradax a 150 mg bidmetopro lol 25 mg bidmonitor for rate control Essential hypertension 46873831 I10 controlled contDiltia zem 180 mg qdlisinopr il 10 mg qdMetoprol ol 25 mg bidmonitor bp and need to titrate Hyperlipidemia 23331002 E78.2 lipitor 20 mg qdcontinue d Type 2 dylon betes mellitus 56190247 E11.9 diet controlled , reportedha d low BS in hospital with possible low BS related to skin conditionn ow off metforminm ost recent hba1c wnrmonitor accucheck prn Marginal z one lymphoma 642269370 C83.07 with hx oflimited informatio n availablef u with oncology 04/05result s and consult pending Rheumatoid arthritis 698 78422 M06.9 he denies arthritis today however has [...] Name 04/05/2024 1 [employer] (MEDICARE REPLACEMENT PPO) [id number] Ashley Francis [id number] Ashley Francis Notes Date Note Type Note [...] taken. Jasmin La NP [address] [facility], [address], [place], [address], [facility] 04/05/2024 20:47:53
--- OUTSIDE RECORDS SUMMARY | 2024-05-01 10:46 | XMS_ITS | Referral Summary ---
Author Organization [facility] Address [address] [place] [address] Care Team Providers Care Hat Blocking Machine Operator Name Role Phone Nikole Mauricio Primary Care Provider [phone] Allergies Active Allergy Reactions Criticality Noted Date Comments Sulfamethoxazole-Trimethoprim Rash 2023 Vancomycin Anaphylaxis High 01/02/2024 Social History Tobacco Use Types Packs/Day Years Used Date Smoking Tobacco: Never Assessed Sex and Gender Information Value Date Recorded Sex Assigned at Male 01/02/2024 9:20 PM EDT Legal Sex Male 5:55 PM EDT Gender Identity Not on file Sexual Orientation Not on file Last Filed Vital Signs Vital Sign Reading Time Taken Comments Blood Pressure 136/84 01/03/2024 7:50 AM EDT Pulse 63 01/03/2024 7:50 AM EDT Temperature 36.6 ??C (97.8 ??F) 01/03/2024 7:50 AM ED T Respiratory Rate 15 01/03/2024 7:50 AM EDT Oxygen Saturation 99% 01/03/2024 7:50 AM EDT Inhaled Oxygen Concentration - - Weight - - Height - - Body Mass Index - - Plan of Treatment [place] [id number] MEDICARE Care Teams Hat Blocking Machine Operator Relationship Specialty Start Date End Date Nikole Mauricio [address] [place] [address] PCP - General Internal Medicine 01/02/24
--- OUTSIDE RECORDS SUMMARY | 2024-05-01 10:46 | XMS_ITS | Clinical Summary ---
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 (CMS/HCC); Infection of amputation stump, left lower extremity (CMS/HCC); Other toxic encephalopathy 03/25/2024 Lab Requisition [facility] Lab [address] [place] [address] Jatin Landis MD Chronic kidney disease, unspecified; Local infection of the skin and subcutaneous tissue, unspecified from Last 3 Months Social History Tobacco Use Types Packs/Day Years Used Date Smoking Tobacco: Never Assessed Sex and Gender Information Value Date Recorded Sex Assigned at Not on file Gender Identity Not on file Sexual Orientation Not on file Plan of Treatment Health Maintenance Due Date Last Done Comments COVID-19 Vaccine (#1) 1962 Pneumococcal Vaccine: 65+ Years (1 of 2 - PCV) 1963 Diabetes: Annual Foot Exam 1967 Diabetes: Annual Retina Eye Exam 1967 Hepatitis A Vaccines (1 of 2 - Risk 2-dose series) 02/23/1976 Zoster Vaccines (1 of 2) 02/23/1976 DTaP,Tdap,and Td Vaccines (2 - Td or Tdap) 04/22/2014 04/22/2004 RSV Immunization Patients 60 + Years Old (1 - Risk 60-74 years 1-dose series) 2017 Influenza Vaccine (#1) 2023 Cholesterol Screening (Lipid Panel) 03/25/2024 Colorectal Cancer Screening: Colonoscopy 03/25/2024 Depression Screening 03/25/2024 Falls Risk Assessment 03/25/2024 Hepatitis C Screening 03/25/2024 Medicare Annual Wellness Visit 03/25/2024 Social Influencers of Health Screening 03/25/2024 Diabetes: Annual Urine Albumin-Creatinine Ratio (uACR) 03/29/2024 Diabetes: Blood Sugar Contro l Test (HGBA1C) 03/29/2024 Diabetes: Annual GFR (Glomerular Filtration Rate) 04/08/2025 04/08/2024, 03/25/2024 Hypertension/CHF/CAD Annual BMP Blood Test 04/08/2025 04/08/2024, 03/25/2024 HIB Vaccines Aged Out No longer eligi ble based on patient's age to complete this topic HPV Vaccines Aged Out No longer eligi ble based on patient's age to complete this topic Hepatitis B Vaccines Aged Out No long er eligible based on patient's age to complete this topic IPV Vaccines Aged Out No longer eligi ble based on patient's age to complete this topic MMR Vaccines Aged Out No longer eligi ble based on patient's age to complete this topic Meningococcal ACWY Vaccine Aged Out N o longer eligible based on patient's age to complete this topic RSV Immunization Patients Under 20 months Aged Out No longer eligible b ased on patient's age to complete this topic Varicella Vaccines Aged Out No longer eligible based on patient's age to complete this topic Procedures Procedure Name Priority Date/Time Associated Diagnosis Comments C-REACTIVE PROTEIN Routine 04/08/2024 4: 52 AM EST 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, 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 COMPREHENSIVE METABOLIC PANEL Routine 04/08/2024 4:52 AM EST 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, 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 COMPLETE BLOOD COUNT Routine 04/08/2024 4:52 AM EST 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, 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 CBC WITH AUTO DIFFERENTIAL Routine 03/25/2024 5:17 AM EST Chronic kidney disease, unspecified Local infection of the skin and subcutaneous tissue, unspecified C-REACTIVE PROTEIN Routine 03/25/2024 5: 17 AM EST Chronic kidney disease, unspecified Local infection of the skin and subcutaneous tissue, unspecified COMPREHENSIVE METABOLIC PANEL Routine 03/25/2024 5:17 AM EST Chronic kidney disease, unspecified Local infection of the skin and subcutaneous tissue, unspecified CBC AND DIFFERENTIAL Routine 03/25/2024 5:17 AM EST Chronic kidney disease, unspecified Local infection of the skin and subcutaneous tissue, unspecified from Last 3 Months Results * (ABNORMAL) Complete blood count (04/08/2024 4:52 AM EST) [facility] WBC 5.7 4.8 - 10.8 K/mcL LAB HEMETOLOGY METHOD 04/08/2024 10:00 AM [facility] RBC 4.20(L) 4.50 - 5.50 M/mcL LAB HEMETOLOGY METHOD 04/08/2024 10:00 AM [facility] Hemoglobin 14.2 13.5 - 17.5 g/dL LAB HEMETOLOGY METHOD 04/08/2024 10:00 AM [facility] LAB Hematocrit 42.2 42.0 - 54.0 % LAB HEMETOLOGY METHOD 04/08/2024 10:00 AM [facility] LAB MCV 100.5(H) 79.0 - 98.0 FL LAB HEMETOLOGY METHOD 04/08/2024 10:00 AM [facility] LAB MCH 33.8(H) 27.0 - 32.0 pcg LAB HEMETOLOGY METHOD 04/08/2024 10:00 AM [facility] LAB MCHC 33.6 32.0 - 37.0 g/dL LAB HEMETOLOGY METHOD 04/08/2024 10:00 AM EST [facility] RDW 13.3 11.0 - 15.0 % LAB HEMETOLOGY METHOD 04/08/2024 10:00 AM [facility] Platelets 330 130 - 400 K/mcL LAB HEMETOLOGY METHOD 04/08/2024 10:00 AM EST [facility] MPV 10.8 7.0 - 11.0 FL LAB HEMETOLOGY METHOD 04/08/2024 10:00 AM EST [facility] NRBC 0.0 <1.0 % LAB HEMETOLOGY METHOD 04/08/2024 10:00 AM [facility] NRBC Absolute 0.00 <0.10 K/mcL LAB HEMETOLOGY METHOD 04/08/2024 10:00 AM [facility] Blood Venous blood specimen / Unknown Venipuncture / Unknown 04/08/2024 4:52 AM EST 04/08/2024 9:04 AM EST Jatin Landis MD LAB BLOOD ORDERABLES [facility] [address] [place] [address], * (ABNORMAL) C-reactive protein (04/08/2024 4:52 AM EST) Only the most recent of2 resultswithin the time period is included. C-Reactive Protein 0.62(H) <=0.50 mg/dL LAB CHEMISTRY METHOD 04/08/2024 10:27 AM EST [facility] Blood Venous blood specimen / Unknown Venipuncture / Unknown 04/08/2024 4:52 AM EST 04/08/2024 9:04 AM EST Jatin Landis MD LAB BLOOD ORDERABLES [facility] [address] [place] [address], [place] [phone] * (ABNORMAL) Comprehensive metabolic panel (04/08/2024 4:52 AM EST) Only the most recent of2 resultswithin the time period is included. Sodium 141 133 - 145 mmol/L LAB CHEMISTRY METHOD 04/08/2024 11:16 AM [facility] Potassium 4.5 3.5 - 5.5 mmol/L LAB CHEMISTRY METHOD 04/08/2024 11:16 AM [facility] Chloride 108 96 - 110 mmol/L LAB CHEMISTRY METHOD 04/08/2024 11:16 AM [facility] CO2 25 21 - 32 mmol/L LAB CHEMISTRY METHOD 04/08/2024 11:16 AM [facility] Anion Gap 8 3 - 11 LAB CHEMISTRY METHOD 04/08/2024 11:16 AM [facility] Glucose 98 70 - 100 mg/dL LAB CHEMISTRY METHOD 04/08/2024 11:16 AM [facility] BUN 15 5 - 25 mg/dL LAB CHEMISTRY METHOD 04/08/2024 11:16 AM [facility] Creatinine 0.73 0.70 - 1.30 mg/dL LAB CHEMISTRY METHOD 04/08/2024 11:16 AM [facility] eGFR 100 >=60 mL/min/1. 73m2 LAB CHEMISTRY METHOD 04/08/2024 11:16 AM [facility] LAB Comment:Calculation based on the??Chronic Kidney Disease Epidemiology Collaboration (CKD-EPI) equation refit??without adjustment for race. BUN/Creatinine Ratio 20.5 LAB CHEMISTRY METHOD 04/08/2024 11:16 AM [facility] Calcium 9.0 8.5 - 10.5 mg/dL LAB CHEMISTRY METHOD 04/08/2024 11:16 AM [facility] AST (SGOT) 24 10 - 42 unit/L LAB CHEMISTRY METHOD 04/08/2024 11:16 AM [facility] ALT (SGPT) 39 10 - 60 unit/L LAB CHEMISTRY METHOD 04/08/2024 11:16 AM [facility] Comment:Results verified by repeat testing Alkaline Phosphatase 138(H) 42 - 121 unit/L LAB CHEMISTRY METHOD 04/08/2024 11:16 AM [facility] Total Protein 6.1 6.0 - 8.0 g/dL LAB CHEMISTRY METHOD 04/08/2024 11:16 AM [facility] Albumin 3.5 3.2 - 5.0 g/dL LAB CHEMISTRY METHOD 04/08/2024 11:16 AM [facility] Total Bilirubin 0.3 0.0 - 1.4 mg/dL LAB CHEMISTRY METHOD 04/08/2024 11:16 AM [facility] Blood Venous blood specimen / Unknown Venipuncture / Unknown 04/08/2024 4:52 AM EST 04/08/2024 9:04 AM EST Jatin Landis MD LAB BLOOD ORDERABLES [facility] [address] [place] [address], * (ABNORMAL) CBC auto differential (03/25/2024 5:17 AM EST) WBC 7.3 4.8 - 10.8 K/mcL LAB HEMETOLOGY METHOD 03/25/2024 9:28 AM [facility] RBC 3.70(L) 4.50 - 5.50 M/mcL LAB HEMETOLOGY METHOD 03/25/2024 9:28 AM [facility] Hemoglobin 12.7(L) 13.5 - 17.5 g/dL LAB HEMETOLOGY METHOD 03/25/2024 9:28 AM [facility] Hematocrit 38.6(L) 42.0 - 54.0 % LAB HEMETOLOGY METHOD 03/25/2024 9:28 AM [facility] MCV 103.8(H) 79.0 - 98.0 FL LAB HEMETOLOGY METHOD 03/25/2024 9:28 AM [facility] MCH 34.1(H) 27.0 - 32.0 pcg LAB HEMETOLOGY METHOD 03/25/2024 9:28 AM [facility] MCHC 32.9 32.0 - 37.0 g/dL LAB HEMETOLOGY METHOD 03/25/2024 9:28 AM [facility] RDW 13.8 11.0 - 15.0 % LAB HEMETOLOGY METHOD 03/25/2024 9:28 AM [facility] Platelets 310 130 - 400 K/mcL LAB HEMETOLOGY METHOD 03/25/2024 9:28 AM [facility] MPV 10.5 7.0 - 11.0 FL LAB HEMETOLOGY METHOD 03/25/2024 9:28 AM [facility] NRBC 0.0 <1.0 % LAB HEMETOLOGY METHOD 03/25/2024 9:28 AM [facility] NRBC Absolute 0.00 <0.10 K/mcL LAB HEMETOLOGY METHOD 03/25/2024 9:28 AM [facility] Neutrophils Relative 57.3 % LAB HEMETOLOGY METHOD 03/25/2024 9:28 AM [facility] Lymphocytes Relative 19.1 % LAB HEMETOLOGY METHOD 03/25/2024 9:28 AM [facility] Monocytes Relative 17.7 % LAB HEMETOLOGY METHOD 03/25/2024 9:28 AM [facility] Eosinophils Relative 4.1 % LAB HEMETOLOGY METHOD 03/25/2024 9:28 AM EST [facility] Basophils Relative 1.4 % LAB HEMETOLOGY METHOD 03/25/2024 9:28 AM [facility] Immature Granulocytes Relative 0.4 % LAB HEMETOLOGY METHOD 03/25/2024 9:28 AM [facility] Neutrophils Absolute 4.17 1.50 - 7.00 K/mcL LAB HEMETOLOGY METHOD 03/25/2024 9:28 AM [facility] Lymphocytes Absolute 1.39 1.00 - 5.00 K/mcL LAB HEMETOLOGY METHOD 03/25/2024 9:28 AM [facility] Monocytes Absolute 1.29(H) 0.20 - 1.00 K/mcL LAB HEMETOLOGY METHOD 03/25/2024 9:28 AM [facility] Eosinophils Absolute 0.30 0.00 - 0.50 K/mcL LAB HEMETOLOGY METHOD 03/25/2024 9:28 AM EST [facility] Basophils Absolute 0.10 0.00 - 0.20 K/mcL LAB HEMETOLOGY METHOD 03/25/2024 9:28 AM [facility] Immature Granulocytes Absolute 0.03 0.00 - 0.03 K/mcL LAB HEMETOLOGY METHOD 03/25/2024 9:28 AM [facility] Blood Venous blood specimen / Unknown Venipuncture / Unknown 03/25/2024 5:17 AM EST 03/25/2024 9:03 AM EST Jatin Landis MD LAB BLOOD ORDERABLES [facility] [address] [place] [address], from Last 3 Months Care Teams Conveyor Console Operator Relationship Specialty Start Date End Date Jatin Landis MD [address] [place] [address] [address] [place], [phone] PCP - General Family Medicine 03/25/24
--- OUTSIDE RECORDS SUMMARY | 2024-05-01 10:46 | XMS_ITS | Encounter Summary ---
Author Organization [facility] Address [address] [place] [address] Care Team Providers Care Reporting Manager Name Role Phone Jatin Landis MD Primary Care Provider Encounter Details Date Type Department Care Team (Late st Contact Info) Description 04/08/[address] 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); Infection of amputation stump, left lower extremity (CMS/HCC); Other toxic encephalopathy Social History Tobacco Use Types Packs/Day Years Used Date Smoking Tobacco: Never Assessed Sex and Gender Information Value Date Recorded Sex Assigned at Not on file Gender Identity Not on file Sexual Orientation Not on file documented as of this encounter Plan of Treatment Not on file documented as of this encounter Procedures Procedure Name Priority Date/Time Associated Diagnosis Comments COMPLETE BLOOD COUNT Routine 04/08/2024 4:52 AM EST 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, 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 C-REACTIVE PROTEIN Routine 04/08/2024 4: 52 AM [...] 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 documented in this encounter Results * (ABNORMAL) C-reactive protein (04/08/2024 4:52 AM EST) [facility] C-Reactive Protein 0.62(H) <=0.50 mg/dL LAB CHEMISTRY METHOD 04/08/2024 10:27 AM EST [facility] Blood Venous blood specimen / Unknown Venipuncture / Unknown 04/08/2024 4:52 AM EST 04/08/2024 9:04 AM EST Jatin Landis MD LAB BLOOD ORDERABLES [facility] [address] [place] [address], * (ABNORMAL) Comprehensive metabolic panel (04/08/2024 4:52 AM EST) [facility] Sodium 141 133 - 145 mmol/L LAB CHEMISTRY METHOD 04/08/2024 11:16 AM [facility] Potassium 4.5 3.5 - 5.5 mmol/L LAB CHEMISTRY METHOD 04/08/2024 11:16 AM [facility] Chloride 108 96 - 110 mmol/L LAB CHEMISTRY METHOD 04/08/2024 11:16 AM [facility] CO2 25 21 - 32 mmol/L LAB CHEMISTRY METHOD 04/08/2024 11:16 AM [facility] Anion Gap 8 3 - 11 LAB CHEMISTRY METHOD 04/08/2024 11:16 AM [facility] Glucose 98 70 - 100 mg/dL LAB CHEMISTRY METHOD 04/08/2024 11:16 AM [facility] BUN 15 5 - 25 mg/dL LAB CHEMISTRY METHOD 04/08/2024 11:16 AM [facility] Creatinine 0.73 0.70 - 1.30 mg/dL LAB CHEMISTRY METHOD 04/08/2024 11:16 AM [facility] LAB eGFR 100 >=60 mL/min/1. 73m2 LAB CHEMISTRY METHOD 04/08/2024 11:16 AM [facility] LAB Comment:Calculation based on the??Chronic Kidney Disease Epidemiology Collaboration (CKD-EPI) equation refit??without adjustment for race. BUN/Creatinine Ratio 20.5 LAB CHEMISTRY METHOD 04/08/2024 11:16 AM [facility] Calcium 9.0 8.5 - 10.5 mg/dL LAB CHEMISTRY METHOD 04/08/2024 11:16 AM [facility] AST (SGOT) 24 10 - 42 unit/L LAB CHEMISTRY METHOD 04/08/2024 11:16 AM [facility] ALT (SGPT) 39 10 - 60 unit/L LAB CHEMISTRY METHOD 04/08/2024 11:16 AM [facility] LAB Comment:Results verified by repeat testing Alkaline Phosphatase 138(H) 42 - 121 unit/L LAB CHEMISTRY METHOD 04/08/2024 11:16 AM [facility] Total Protein 6.1 6.0 - 8.0 g/dL LAB CHEMISTRY METHOD 04/08/2024 11:16 AM [facility] Albumin 3.5 3.2 - 5.0 g/dL LAB CHEMISTRY METHOD 04/08/2024 11:16 AM [facility] Total Bilirubin 0.3 0.0 - 1.4 mg/dL LAB CHEMISTRY METHOD 04/08/2024 11:16 AM [facility] Blood Venous blood specimen / Unknown Venipuncture / Unknown 04/08/2024 4:52 AM EST 04/08/2024 9:04 AM EST Jatin Landis MD LAB BLOOD ORDERABLES [facility] [address] [place] [address], * (ABNORMAL) Complete blood count (04/08/2024 4:52 AM EST) [facility] Signature WBC 5.7 4.8 - 10.8 K/mcL LAB HEMETOLOGY METHOD 04/08/2024 10:00 AM [facility] RBC 4.20(L) 4.50 - 5.50 M/mcL LAB HEMETOLOGY METHOD 04/08/2024 10:00 AM [facility] Hemoglobin 14.2 13.5 - 17.5 g/dL LAB HEMETOLOGY METHOD 04/08/2024 10:00 AM [facility] Hematocrit 42.2 42.0 - 54.0 % LAB HEMETOLOGY METHOD 04/08/2024 10:00 AM [facility] MCV 100.5(H) 79.0 - 98.0 FL LAB HEMETOLOGY METHOD 04/08/2024 10:00 AM [facility] MCH 33.8(H) 27.0 - 32.0 pcg LAB HEMETOLOGY METHOD 04/08/2024 10:00 AM [facility] MCHC 33.6 32.0 - 37.0 g/dL LAB HEMETOLOGY METHOD 04/08/2024 10:00 AM [facility] RDW 13.3 11.0 - 15.0 % LAB HEMETOLOGY METHOD 04/08/2024 10:00 AM [facility] Platelets 330 130 - 400 K/mcL LAB HEMETOLOGY METHOD 04/08/2024 10:00 AM [facility] MPV 10.8 7.0 - 11.0 FL LAB HEMETOLOGY METHOD 04/08/2024 10:00 AM [facility] NRBC 0.0 <1.0 % LAB HEMETOLOGY METHOD 04/08/2024 10:00 AM [facility] NRBC Absolute 0.00 <0.10 K/mcL LAB HEMETOLOGY METHOD 04/08/2024 10:00 AM EST [facility] Blood Venous blood specimen / Unknown Venipuncture / Unknown 04/08/2024 4:52 AM EST 04/08/2024 9:04 AM EST Jatin Landis MD LAB BLOOD ORDERABLES [facility] [address] [place] [address], documented in this encounter Visit Diagnoses Diagnosis 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
--- OUTSIDE RECORDS SUMMARY | 2024-05-01 10:46 | XMS_ITS | Clinical Summary ---
Author Organization [facility] Address [address] [place] [address] Care Team Providers Care Door Clamp Operator Name Role Phone Nikole Mauricio Primary Care Provider [phone] Allergies Active Allergy Reactions Criticality Noted Date [...] 36.6 ??C (97.8 ??F) 01/03/2024 7:50 AM E DT Respiratory Rate 15 01/03/2024 7:50 AM EDT Oxygen Saturation 99% 01/03/2024 7:50 AM EDT Inhaled Oxygen Concentration - - Weight - - Height - - Body Mass Index - - Plan of Treatment Health Maintenance Due Date Last Done Comments Cologuard 1957 Colon Cancer Screening 1955 Colonoscopy 1957 FOBT / Fit Test 1957 Hepatitis C Screening 1957 Sigmoidoscopy 1957 DTaP,Tdap,and Td Vaccines (1 - Tdap) 04/23/2004 04/22/2004 Zoster Vaccines (1 of 2) 2007 Pneumococcal Vaccine: 65+ Ye ars (1 of 1 - PCV) 2022 Depression Screening and Follow-Up 03/27/2023 COVID-19 Vaccine (2023-2 5 season) 2023 Influenza Vaccine (#1) 2023 Alcohol/Substance Use Screening 03/27/2024 Health Care Proxy Review 03/27/2024 RSV Vaccine (60+ years old a nd patients) (1 - 1-dose 75+ series) 02/23/2032 Hepatitis B Vaccines Aged Out No long er eligible based on patient's age to [place] [id number] Care Teams Door Clamp Operator Relationship Specialty Start Date End Date Nikole Mauricio [address] [place] [address] PCP - General Internal Medicine 01/02/24
--- OUTSIDE RECORDS SUMMARY | 2024-05-01 10:46 | XMS_ITS | Encounter Summary ---
Author Organization [employer] [employer] Address [address] [place] [address] Care Team Providers Care Intelligence Senior Sergeant Name Role Phone Jatin Landis MD Primary Care Provider [phone] Encounter Details Date Type Department Care Team (Late st Contact Info) Description 03/25/2024 Lab Requisition [facility] - Main Lab [address] [facility] [place] [address] Jatin Landis MD [address] [place] [address] [address], [phone] Chronic kidney disease, unspecified; Local infection of the skin and subcutaneous tissue, unspecified Social History Tobacco Use Types Packs/Day Years Used Date Smoking Tobacco: Never Assessed Sex and Gender Information Value Date Recorded Sex Assigned at Not on file Gender Identity Not on file Sexual Orientation Not on file documented as of this encounter Plan of Treatment Not on file documented as of this encounter Procedures Procedure Name Priority Date/Time Associated Diagnosis Comments CBC WITH AUTO DIFFERENTIAL Routine 03/25/2024 5:17 [...] of the skin and subcutaneous tissue, unspecified documented in this encounter Results * (ABNORMAL) CBC auto differential (03/25/2024 5:17 AM EST) [facility] WBC 7.3 4.8 - 10.8 K/mcL LAB HEMETOLOGY METHOD 03/25/2024 9:28 AM [facility] RBC 3.70(L) 4.50 - 5.50 M/mcL LAB HEMETOLOGY METHOD 03/25/2024 9:28 AM [facility] Hemoglobin 12.7(L) 13.5 - 17.5 g/dL LAB HEMETOLOGY METHOD 03/25/2024 9:28 AM [facility] Hematocrit 38.6(L) 42.0 - 54.0 % LAB HEMETOLOGY METHOD 03/25/2024 9:28 AM [facility] MCV 103.8(H) 79.0 - 98.0 FL LAB HEMETOLOGY METHOD 03/25/2024 9:28 AM [facility] MCH 34.1(H) 27.0 - 32.0 pcg LAB HEMETOLOGY METHOD 03/25/2024 9:28 AM [facility] LAB MCHC 32.9 32.0 - 37.0 g/dL LAB HEMETOLOGY METHOD 03/25/2024 9:28 AM [facility] RDW 13.8 11.0 - 15.0 % LAB HEMETOLOGY METHOD 03/25/2024 9:28 AM [facility] Platelets 310 130 - 400 K/mcL LAB HEMETOLOGY METHOD 03/25/2024 9:28 AM [facility] MPV 10.5 7.0 - 11.0 FL LAB HEMETOLOGY METHOD 03/25/2024 9:28 AM [facility] NRBC 0.0 <1.0 % LAB HEMETOLOGY METHOD 03/25/2024 9:28 AM [facility] NRBC Absolute 0.00 <0.10 K/mcL LAB HEMETOLOGY METHOD 03/25/2024 9:28 AM [facility] Neutrophils Relative 57.3 % LAB HEMETOLOGY METHOD 03/25/2024 9:28 AM [facility] Lymphocytes Relative 19.1 % LAB HEMETOLOGY METHOD 03/25/2024 9:28 AM [facility] Monocytes Relative 17.7 % LAB HEMETOLOGY METHOD 03/25/2024 9:28 AM [facility] Eosinophils Relative 4.1 % LAB HEMETOLOGY METHOD 03/25/2024 9:28 AM [facility] Basophils Relative 1.4 % LAB HEMETOLOGY METHOD 03/25/2024 9:28 AM [facility] Immature Granulocytes Relative 0.4 % LAB HEMETOLOGY METHOD 03/25/2024 9:28 AM [facility] Neutrophils Absolute 4.17 1.50 - 7.00 K/mcL LAB HEMETOLOGY METHOD 03/25/2024 9:28 AM [facility] Lymphocytes Absolute 1.39 1.00 - 5.00 K/mcL LAB HEMETOLOGY METHOD 03/25/2024 9:28 AM [facility] Monocytes Absolute 1.29(H) 0.20 - 1.00 K/mcL LAB HEMETOLOGY METHOD 03/25/2024 9:28 AM [facility] Eosinophils Absolute 0.30 0.00 - 0.50 K/mcL LAB HEMETOLOGY METHOD 03/25/2024 9:28 AM [facility] Basophils Absolute 0.10 0.00 - 0.20 K/mcL LAB HEMETOLOGY METHOD 03/25/2024 9:28 AM [facility] Immature Granulocytes Absolute 0.03 0.00 - 0.03 K/mcL LAB HEMETOLOGY METHOD 03/25/2024 9:28 AM [facility] Blood Venous blood specimen / Unknown Venipuncture / Unknown 03/25/2024 5:17 AM EST 03/25/2024 9:03 AM EST Jatin Landis MD LAB BLOOD ORDERABLES [facility] [address] [place] [address], [place] [phone] * (ABNORMAL) C-reactive protein (03/25/2024 5:17 AM EST) [facility] C-Reactive Protein 1.04(H) <=0.50 mg/dL LAB CHEMISTRY METHOD 03/25/2024 9:46 AM EST [facility] Blood Venous blood specimen / Unknown Venipuncture / Unknown 03/25/2024 5:17 AM EST 03/25/2024 9:03 AM EST Jatin Landis MD LAB BLOOD ORDERABLES Performing Organization Address City/[facility]/ZIP Co de Phone Number [facility] [address] [place] [address], [place] [phone] * (ABNORMAL) Comprehensive metabolic panel (03/25/2024 5:17 AM EST) [facility] Sodium 141 133 - 145 mmol/L LAB CHEMISTRY METHOD 03/25/2024 9:46 AM [facility] Potassium 4.2 3.5 - 5.5 mmol/L LAB CHEMISTRY METHOD 03/25/2024 9:46 AM [facility] Chloride 106 96 - 110 mmol/L LAB CHEMISTRY METHOD 03/25/2024 9:46 AM EST [facility] CO2 27 21 - 32 mmol/L LAB CHEMISTRY METHOD 03/25/2024 9:46 AM [facility] Anion Gap 8 3 - 11 LAB CHEMISTRY METHOD 03/25/2024 9:46 AM [facility] Glucose 77 70 - 100 mg/dL LAB CHEMISTRY METHOD 03/25/2024 9:46 AM [facility] BUN 17 5 - 25 mg/dL LAB CHEMISTRY METHOD 03/25/2024 9:46 AM [facility] Creatinine 0.76 0.70 - 1.30 mg/dL LAB CHEMISTRY METHOD 03/25/2024 9:46 AM [facility] eGFR 99 >=60 mL/min/1. 73m2 LAB CHEMISTRY METHOD 03/25/2024 9:46 AM [facility] Comment:Calculation based on the??Chronic Kidney Disease Epidemiology Collaboration (CKD-EPI) equation refit??without adjustment for race. BUN/Creatinine Ratio 22.4 LAB CHEMISTRY METHOD 03/25/2024 9:46 AM [facility] Calcium 9.0 8.5 - 10.5 mg/dL LAB CHEMISTRY METHOD 03/25/2024 9:46 AM [facility] AST (SGOT) 24 10 - 42 unit/L LAB CHEMISTRY METHOD 03/25/2024 9:46 AM [facility] ALT (SGPT) 20 10 - 60 unit/L LAB CHEMISTRY METHOD 03/25/2024 9:46 AM [facility] Alkaline Phosphatase 176(H) 42 - 121 unit/L LAB CHEMISTRY METHOD 03/25/2024 9:46 AM [facility] Total Protein 5.7(L) 6.0 - 8.0 g/dL LAB CHEMISTRY METHOD 03/25/2024 9:46 AM [facility] Albumin 3.3 3.2 - 5.0 g/dL LAB CHEMISTRY METHOD 03/25/2024 9:46 AM [facility] Total Bilirubin 0.3 0.0 - 1.4 mg/dL LAB CHEMISTRY METHOD 03/25/2024 9:46 AM [facility] Blood Venous blood specimen / Unknown Venipuncture / Unknown 03/25/2024 5:17 AM EST 03/25/2024 9:03 AM EST Jatin Landis MD LAB BLOOD ORDERABLES [facility] ([facility]) [facility] [address] [place] [address], documented in this encounter Visit Diagnoses Diagnosis Chronic kidney disease, unspecified Local infection of the skin and subcutaneous tissue, unspecified documented in this encounter Care Teams Intelligence Senior Sergeant Relationship Specialty Start Date End Date Jatin Landis MD [address] [place] [address] [address], [phone] PCP - General Family Medicine 03/25/24 documented as of this encounter
--- OUTSIDE RECORDS SUMMARY | 2024-05-01 10:47 | XMS_ITS | Continuity of Care Document ---
Author Organization [facility], [facility] Address [address] [place] [address] Care Team Providers Care Junior Network Engineer Name Role Phone DONOVAN DONATO - 2ND FLOOR OTHER ZANE MAURICIO Primary Care Provider Assessment Encounter Date Assessment Date Assessment LastModified by Organization Details LastModified Time 04/12/2024 04/12/2024 spent greater than 45 minutes with assessment, doc, scripts, coordiantion of care, and orders [email or web address] Not available 04/12/2024 10:20:21 Plan of Treatment Reminders Order Date Submit [...] Organization Details Recorded Time Atrial fibrillatio n 21567108 Active 2023 JAVY MABRY NP [address] [facility], [facility] [address], [place], [address], [facility] [employer] 4 14:46:48 Osteomyelit is 73243664 Active 2023 JAVY MABRY NP [address] [facility], [address], [place], [address], [facility] [employer] 4 14:46:56 Open wound of skin 553538984523 Active 2023 JOSH MABRY NP [address] [facility], [address], [place], [address], [facility] [employer] 4 14:47:21 Essential hypertensio n 38721681 Active 2023 JAVY MABRY, DAVIDA [address], [address], [place], [address], [facility] 4 14:47:31 Hyperlipide pablo 75161467 Active 2023 JAVY MABRY, PUBLIC AREA SUPERVISOR [address], [address], [place], [address], [facility] 4 14:47:35 Alcohol abuse 09183423 Active 2023 JAVY YUMIKOADRIANE, PUBLIC AREA SUPERVISOR [address], [address], [place], [address], [facility] 4 14:47:58 Falls 942366449 Active 2023 JAVY CALDERONDAVIDA FORREST [address], [address], [place], [address], [facility] 4 14:53:49 Type 2 diabetes mellitus 00087659 Active 2023 JAVY MABRY NP [address], [place], [address], [facility] 4 15:00:44 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 Medical Equipment None Reported. Allergies Allergen ID Allergen Name Allergen Category Reaction Reaction Severity Criticality Documentation Date Start Date Code Code System Note Provider Name and Address Organization Details Recorded Time 58579 Bactrim medicatio n Not available Not available Not available 03/23/2024 58880 9 RxNorm Not Available Not Available Not Available 96136 vancomyci n medicatio n Not available Not available Not available 03/23/2024 19488 RxNorm Not Available Not Available Not Available Medications Not known to be on any medication Vitals Date Recorded Body weight Heart rate Respiratory rate Body temperature Oxygen saturation Oxygen saturation in Arterial blood by Pulse oximetry Systolic blood pressure Diastolic blood pressure Provider Name and Address Organization Details Last Updated DateTime 5 86337 g 76 /min 18 /min 97.8 [degF] 99 % 99 % 126 mm[Hg] 71 mm[Hg] Jasmin La NP [address] [facility], [address], [place], [address], [employer] 5 09:45:11 Social History Question Answer Notes LastModified by Organizat ion Details LastModified Time Tobacco Smoking Status Never Smoker JAVY MABRY NP [address] [facility], [address], [place], [address], [facility] [employer] 03/23/2024 14:49:48 Do You Have An Advance [...] (RSV), unspecified 3 completed Eulalia brasher [facility] [employer] [facility] 03/26/2024 14:51:00 Hep B, unspecified formulation 8 completed Eulalia brsaher [facility] [employer] [facility] 03/26/2024 14:51:16 Tdap 5 completed Eulalia brasher [facility] [employer] [facility] 03/26/2024 14:51:30 Pneumococcal conjugate PCV 13 3 completed Eulalia Chandra [facility], [facility] 03/26/2024 14:55:05 pneumococcal polysaccharide PPV23 6 completed Eulalia Chandra null, [facility] 03/26/2024 14:55:34 pneumococcal polysaccharide PPV23 6 completed Eulalia Chandra [facility], [facility] 03/26/2024 14:55:41 influenza, unspecified formulation 2 completed Eulalia Prateek null, [facility] 03/26/2024 14:56:07 influenza, unspecified formulation 3 completed Eulalia Prateek [facility], [facility] 03/26/2024 14:56:17 influenza, unspecified formulation 4 completed Eulaliabirdie Chandra [facility] 03/26/2024 14:56:27 meningococcal ACWY, unspecified formulation 9 completed Eulalia Chandra [facility] 03/26/2024 14:56:54 SARS-COV-2 (COVID-19) vaccine, UNSPECIFIED 1 completed Eulalia Chandra [facility] 03/26/2024 14:57:07 SARS-COV-2 (COVID-19) vaccine, UNSPECIFIED 1 completed Eulalia Prateek [facility] 03/26/2024 14:57:15 SARS-COV-2 (COVID-19) vaccine, UNSPECIFIED 1 completed Eulalia Chandra [facility] 03/26/2024 14:57:24 SARS-COV-2 (COVID-19) vaccine, UNSPECIFIED 2 completed Eulalia Prateek null, [facility] 03/26/2024 14:57:32 SARS-COV-2 (COVID-19) vaccine, UNSPECIFIED 2 completed Eulalia Prateek [facility] 03/26/2024 14:57:40 SARS-COV-2 (COVID-19) vaccine, UNSPECIFIED 3 completed Eulalia Prateek [facility] 03/26/2024 14:57:48 zoster, unspecified formulation 3 completed Eulalia Chandra [facility] 03/26/2024 14:58:02 zoster, unspecified formulation 3 completed Eulalia Chandra [facility] 03/26/2024 14:58:10 Past Encounters Encounter ID Performer Location Encounter Start Date Encounter Closed Date Diagnosis/Indication Diagnosis SNOMED-CT Code Diagnosis ICD10 Code Diagnosis Note [id number] JAVY MABRY NP [address] [address] 03/23/2024 14:38:33 03/25/2024 12:39:17 Alcohol abuse 73796328 F10.10 monitor for any signs of withdrawlf olic 1 mg dailyNaltr exone 60 mg dailyThiam ine 100 mg dailyMag ox 400 mg dailymvi dailyVit C 500 dailyBuspa r 10 mg bidCymbalt a 60 mg dailyWellb utrin 150 mg daily Osteomyelitis 87842711 M 86.9 Doxycyline 100 mg bid to 03/25monit or for any signs of infections Open wound of skin 00317 09435 01 T14.8XXA Doxycyline 100 mg bid to 03/25monit or for any signs of infections wound consult [place] 506634495 R29.6 PTOT eval and treatfall precaution sfrequent safety checks Atrial fibrillation 4943 6004 I48.91 Diltiazem er 180 mg dailyMetop rolol 25 mg bidmonitor heart rate Essential hypertension 89918200 I10 Diltiazem er 180 mg dailyMetop rolol 25 mg bidmonitor bp Hyperlipidemia 70487497 E78.5 atorvastat in 20 mg daily Type 2 dylon betes mellitus 72755665 E11.9 monitor glucose [id number] Jatin Landis MD [address] [address] 03/25/2024 10:05:56 03/26/2024 13:18:46 Alcohol abuse 78224309 F10.132 see HPIcontinu ed on thiamine and supplement seval by addiction med [facility] need for increased support in community Osteomyelitis 17461611 M 86.052 carrying dx left chronic [facility] at [facility] sitestarte d empiricall y on doxy through 03/25repea t cbcID / ortho eval prnmonitor siteupdate ortho with concerns Open wound of skin 84709 96329 01 T14.8XXA see above with chronic infection Atrial fibrillation 4943 6004 I48.0 pradaxa 150 mg bidmetopro lol 25 mg bidmonitor for rate control Essential hypertension 95418373 I10 Diltiazem 180 mg qdlisinopr il 10 mg qdMetoprol ol 25 mg bidmonitor bp and need to titrate Hyperlipidemia 75099195 E78.2 lipitor 20 mg qdcontinue d Type 2 dylon betes mellitus 16528135 E11.9 diet controlled now off metforminm ost recent hba1c wnrmonitor accucheck prn Asthenia 40463353 R53.1 weakness and gait instabilit yPT OT Eval and treatmonit or fall risk and need for increased support in community Marginal z one lymphoma 052911713 C83.07 carrying dx added to PMHlimited informatio n availabler equest prior notes from PCP Benign pro static hyperplasia without outflow obstruction 719752853 N40.0 added to PMHmonitor for retention [id number] Jasmin La NP [address] [address] 03/28/2024 16:08:27 03/29/2024 11:48:40 Alcohol abuse 96187226 F10.132 see HPInaltrex one 50 mg po qdcontinue d on thiamine and supplement seval'd by addiction services in hospitalso cial work to be involved at [facility] nitor need for increased support in community Osteomyelitis 95055565 M 86.052 carrying dx [facility] site[facility] nori doxy empiricall y through 03/25ID / ortho eval prnmonitor siteupdate ortho with concerns Open wound of skin 86366 59877 01 T14.8XXA see above with chronic infection Asthenia 61300042 R53.1 weakness and gait instabilit yPT OT Eval and treatmonit or fall risk and need for increased support in community Atrial fibrillation 4943 6004 I48.0 contpradax a 150 mg bidmetopro lol 25 mg bidmonitor for rate control Essential hypertension 14575244 I10 controlled contDiltia zem 180 mg qdlisinopr il 10 mg qdMetoprol ol 25 mg bidmonitor bp and need to titrate Hyperlipidemia 97781459 E78.2 lipitor 20 mg qdcontinue d Type 2 dylon betes mellitus 16628548 E11.9 diet controlled , reportedha d low BS in hospital with possible low BS related to skin conditionn ow off metforminm ost recent hba1c wnrmonitor accucheck prn Marginal z one lymphoma 395980914 C83.07 with hx oflimited informatio n availablef u with oncology 04/05 Atopic dermatitis 707176 01 L20.9 pt with notable scab like [...] cular 04/11 @ 13pm. Rheumatoid arthritis 698 49117 M06.9 he denies arthritis today however has likely underlying arthritisf u with Rheumatoid appt with Dr Hart 07/04 @ [facility]. [id number] Jasmin La NP [address] [address] 04/05/2024 12:48:06 04/09/2024 09:15:27 Atopic dermatitis 54891982 L20.9 pt with notable scab like ulceration [...] changesVas cular 04/11 @ 13pm. Alcohol abuse 35223064 F 10.132 see HPInaltrex one 50 mg po qdcontinue d on thiamine and supplement seval'd by addiction services in hospitalso cial work to be involved at facilitymo nitor need for increased support in community Osteomyelitis 75513736 M 86.052 carrying dx left chronic osteo at bka sitecomple nori doxy empiricall y through 03/25ID / ortho eval prnmonitor site for s/s infectionu pdate ortho with concerns Open wound of skin 06402 34810 01 T14.8XXA see above with chronic infection Asthenia 07026202 R53.1 weakness and gait instabilit yPT OT Eval and treatmonit or fall risk and need for increased support in community Atrial fibrillation 4943 6004 I48.0 contpradax a 150 mg bidmetopro lol 25 mg bidmonitor for rate control Essential hypertension 97954475 I10 controlled contDiltia zem 180 mg qdlisinopr il 10 mg qdMetoprol ol 25 mg bidmonitor bp and need to titrate Hyperlipidemia 58224830 E78.2 lipitor 20 mg qdcontinue d Type 2 dylon betes mellitus 47316247 E11.9 diet controlled , reportedha d low BS in hospital with possible low BS related to skin conditionn ow off metforminm ost recent hba1c wnrmonitor accucheck prn Marginal z one lymphoma 549919332 C83.07 with hx oflimited informatio n availablef u with oncology 04/05result s and consult pending Rheumatoid arthritis 698 41926 M06.9 he denies arthritis today however has likely underlying arthritisf u with Rheumatoid appt with Dr Hart 07/04 @ [facility]. [id number] Jasmin La NP [address] [address] 04/12/2024 09:03:45 04/15/2024 16:27:46 Osteomyelitis 17577455 M86.052 resolvedca rrying dx left chronic osteo at bka sitecomple nori doxy empiricall y through 03/25ID / ortho eval prnmonitor site for s/s infection outpt with pcpupdate ortho with concerns outpt prn Atopic dermatitis 090483 01 L20.9 mostly resolvedpt with notable scab like ulceration s and peeling of skin in webs of fingers now resolvingc ont triamcinol one 0.5% oint 1 dime size area to affected hands until resolved, will go home with tube for a few more daysmonito r for changes outpt with pcp Alcohol abuse 70693264 F 10.132 see HPInaltrex one 50 mg po qdcontinue d on thiamine and supplement seval'd by addiction services in hospital alreadymon itor need for increased support in community outpt with vna and pcp services in place, also reports a cleaning service helps him Open wound of skin 63496 93565 01 T14.8XXA see above with chronic infection now resolvedfu with wound outpt, wound almost healed Asthenia 72193454 R53.1 seems back to baselinePT OT Eval and treat outpt prnmonitor fall risk and need for increased support in communityv na services in place per social work faculty member Atrial fibrillation 4943 6004 I48.0 contpradax a 150 mg bidmetopro lol 25 mg bidmonitor for rate control outpt with pcp Essential hypertension 32364840 I10 controlled contDiltia zem 180 mg qdlisinopr il 10 mg qdMetoprol ol 25 mg bidmonitor bp and need to titrate outpt with pcp Hyperlipidemia 37872805 E78.2 lipitor 20 mg qdmonitor outpt with pcp Type 2 dylon betes mellitus 63605364 E11.9 diet controlled , reportedno w off metforminm ost recent hba1c wnrBS very stable heremonito r accucheck prn outpt with pcp Marginal z one lymphoma 402639269 C83.07 with hx oflimited informatio n availablef u with oncology prn outptconsu lt note not received here from 04/05 appt Rheumatoid arthritis 698 72684 M06.9 he denies arthritis today however has likely underlying arthritisf u with Rheumatoid appt with Dr Hart 07/04 @ 11am as scheduled Peripheral arterial insufficiency 6383701652 83827 I73.9 with L BKA and osteo healednote : at 04/11/24 appt with Hannah he was noted to have wnl art u/s on 03/17/[address] Dr Young vascular outpt in 6 months after art u/s Health Concerns Section Related Observation LastModified by Organization Detai ls LastModified Time None Recorded Concern Status LastModified by Organization Details LastModified Time None Recorded Payers Encounter Date Sequence Insurance Name Policy Number Policy Alba Covered Member ID Alba Member ID Guarantor Name 04/12/2024 1 [employer] (MEDICARE REPLACEMENT PPO) [id number] Ashley Francis [id number] Ashley Francis Notes Date Note Type Note Provider Name and Address Organization Details Recorded Time 04/12/2024 text/html Pt is seen for a discharge visit. PMH: cad, dm, lbka, afib, htn, hld, left shoulder fracture, gout, etoh, non healing wound left bka Ashley is a 69 yo male admit from hospital after presenting with altered mental status and delusions/hallucina tions with withdrawal from ETOH and non complaint with meds. While in the hospital he was started on phenobarbital and was eval by addiction med, psych, wound care and cards. 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 Wound team saw him weekly here and felt mostly healed and rec skin prep qd to Left BKA. While at [facility]: Ashley has been fu with appointments: Saw Dr Young from vascular on 04/11/24 with note that he was doing well and last arterial on 03/17/24 was within normal limits and no open ulcers noted. Plan to repeat art US in 6 months and follow up with vascular. He was seen by oncology on 04/05 at 11am and no new recommendations. Next appt:Rheumatoid appt with Dr Hart 07/04 @ 11am. Dr Coronel leaving practice soonest appt was taken. He plans to follow up with wound care outpt for the BKA to ensure healing. He plans to fu with Ortho for a shoulder surgery in future when the BKA completely healed. His pcp is Dr Mauricio and will fu soon. Pt has been ambulating with ERIKA BURRIS, per therapy here. He was started on triamcinolone for the red scale to his hands which is 90% healed and looks much better. His vitals are stable here and no tremors noted on naltrexone. His BS 76-130 not currently on medications for diabetes here. He states he did not like the metformin and doesn't need it. On exam, Ashley reports he has all meds and equipment including bath seat, grab rails, and walker at home. He states he could use a wheelchair and one is written for today. He states he can get up the stairs with one person to get into his place if needed. He reports he can wear the prosthesis, but is following up with the company to have it adjusted for losing weight. He reports he has the thicker socks at home to help with the difference in the meantime.BKA site is healing and closed with slight scabbing to site. His hands are resolved and look much better. About 90% of redness and scale resolved. Jasmin La, DAVIDA [address] [facility], [address], [place], [address], [facility] 04/12/2024 10:20:27
[2024-05-01 13:04] LABS: MANUAL DIFF FLAG NO
[2024-05-01 13:12] LABS: Basophils Absolute Auto 0.1 X10*3/uL (0.0-0.2); Eosinophils Absolute Auto 0.3 X10*3/uL (0.0-0.4); Hematocrit 37.4 % (42.0-52.0); Imm Gran Abs Auto 0.02 X10*3/uL (0.00-0.03); Imm Gran Pct Auto 0.2 % (0.0-0.4); Lymphocytes Absolute Auto 1.4 X10*3/uL (1.2-4.9); Lymphocytes Percent Auto 17.4 % (20-40); Mean Corpuscular HGB Conc 34.8 g/dl (31.0-36.0); Mean Corpuscular Hemoglobin 33.8 pg (27.0-33.0); Mean Corpuscular Volume 97.1 fL (80.0-98.0); Mean Platelet Volume 10.2 fL (9.4-12.4); Monocytes Absolute Auto 0.8 X10*3/uL (0.1-1.2); Monocytes Percent Auto 9.7 % (2-11); NRBC Pct Auto 0.2 /100WBC (0.0-0.2); Neutrophils Absolute Auto 5.5 x10*3/uL (2.0-8.3); Neutrophils Percent Auto 67.7 % (45-73); Platelet Count 303 X10*3/uL (160-400); Red Blood Count 3.85 X10*6/uL (4.60-5.80); Red Cell Distribution Width 14.5 % (11.0-16.0); White Blood Count 8.1 X10*3/uL (4.8-10.8)
[2024-05-01 13:25] LABS: Alanine Aminotransferase 13 U/L (0-40); Alkaline Phosphatase 132 U/L (39-117); Anion Gap 14 (12-20); Aspartate Amino Transferase 32 U/L (5-37); Blood Urea Nitrogen 14 mg/dL (9-16); Calcium 8.9 mg/dL (8.4-10.2); Carbon Dioxide 23 mmol/L (22-29); Chloride 106 mmol/L (96-108); Cholesterol 121 mg/dL (<200); Estimated Glomerular Filt Rate > 60; Glucose Fasting 109 mg/dL (60-99); HDL Cholesterol 51 mg/dL (>40); LDL Cholesterol Calculated 57 mg/dL (<100); Sodium 139 mmol/L (135-145); Total Protein 6.6 g/dL (6.5-8.0); Triglycerides 65 mg/dL (<150)
[2024-05-01 13:28] LABS: Estimated Average Glucose 123 mg/dL; Hemoglobin A1C 144.0068 umol/L; Hemoglobin A1c % 5.9 % (<6.0); Total Hemoglobin (HGBA1C) 3488.2428 umol/L
[2024-05-01 13:45] LABS: PSA,Total (Free>4and<10) 1.83 ng/mL (0.00-4.00)
== END 2024-05-01 09:58 | disposition home or self-care (01) ==
LOC: HO.HMGCLDS 09:57
PROVIDERS: PCP Internal Medicine; Visit Provider Internal Medicine
DX: Z12.5 Encounter for screening for malignant neoplasm of prostate (principal); I73.9 Peripheral vascular disease, unspecified; I48.91 Unspecified atrial fibrillation; E11.42 Type 2 diabetes mellitus with diabetic polyneuropathy; C83.07 Small cell B-cell lymphoma, spleen; F10.10 Alcohol abuse, uncomplicated; E11.9 Type 2 diabetes mellitus without complications; Z89.512 Acquired absence of left leg below knee
CPT/HCPCS: 36415; 80053; 80061; 83036; 84153; 85025

== ENCOUNTER 2024-05-06 11:32 | Outpatient (AMB) | payer MEDICARE, SELFPAY ==
[2024-05-06 11:35] VITALS: BP 110/78; PULSE 72; RESP 18; TEMP 36.7; O2SAT 98; BMI 26.3
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
--- OUTSIDE RECORDS SUMMARY | 2024-05-06 12:51 | XMS_ITS ---
Author Organization [facility] Address [address] [facility] [place] [address] Care Team Providers Care Cutting And Splicing Supervisor Name Role Phone Nikole Mauricio MD Primary Care Provider Tony Ribeiro [phone] REASON FOR VISIT 10/24/23 appt Encounters Encounter Location Date [facility] [address] [place] [address] [address] [place] [address] 10/19/2023 Tony Reeves Plan Of Treatment No Information Progress Notes * Ashley FRANCISDOB:1955 (68 yo M)Acc No.[id number]:10/19/2023 Patient:?Tito Ashley :1955???Age:68 Y???Sex:Male Address: [place] [address] * true * Date:? Generated for Santy bower/Tressa/eTransmitting on:?05/06/2024 12:51 PM EST
--- OUTSIDE RECORDS SUMMARY | 2024-05-06 12:52 | XMS_ITS | Data Portability ---
Author Organization [facility] Address [address] [place] [address] Care Team Providers Care Paymaster Of Purses Name Role Phone HIM MARY OTHER Assessment [...] Not available Not available Not available 01/23/2024 87254 RxNorm Not Available [facility] - production 4 03:38:22 7568 Bactrim medicatio n Not available Not available Not available 01/23/2024 02263 9 RxNorm Not Available [facility] - production [...] /min 187.96 cm 100 % 100 % 65458.4 4 g 99.5 [degF] 18 /min 185 mm[Hg] 98 mm[Hg] Not Available [facility] - production 4 18:00:42 Social History None recorded. Functional Status None recorded. Mental Status None recorded. Family History Nothing Reported. Medical History No medical history recorded. Past Encounters Encounter ID Performer Location Encounter Start Date Encounter Closed Date Diagnosis/Indication Diagnosis SNOMED-CT Code Diagnosis ICD10 Code Diagnosis Note [id number] Carlos Loo MD [facility] - [facility] [address] [place] [address] 09/12/2023 18:00:34 09/12/2023 21:22:44 Open wound of lower leg 016637699 S81.802A Health Concerns Section Related Observation LastModified by Organization Detai ls LastModified Time None Recorded Concern Status LastModified by Organization Details LastModified Time None Recorded Advance Directives Directive None Recorded Payers Encounter Date Sequence Insurance Name Policy Number Policy Alba Covered Member ID Alba Member ID Guarantor Name 09/12/2023 1 [facility] - DOS ON OR AFTER 2022 - DUAL ELIGIBLE - ALF OPTIONS AND ONE CARE (MEDICARE REPLACEMENT/ADV ANTAGE - HMO) Ashley Francis [id number] Ashley Francis Notes Date Note Type Note Provider Name and Address Organization Details Recorded Time 09/12/2023 text/html [facility] Nurse Triage Notes (Kristin Aguila): Reason For Request: [facility] member client services vice president Magaly reporting mbr is requesting [facility] for [...] .................... .................... .................... .................... .................... .................... . Senior Operations Analyst Note From Mera Mukherjee: Sent to a [...] .................... .................... . Disposition: Musa Loo MD [address] [place] [address],[address], [place], [address], [place] [employer] [place] 09/12/2023 19:31:35
--- OUTSIDE RECORDS SUMMARY | 2024-05-06 12:52 | XMS_ITS ---
Author Organization [facility] Address [address] [facility] [place] [address] Care Team Providers Care Donor Relations Coordinator Name Role Phone Nikole Mauricio MD Primary Care Provider Tony Ribeiro [phone] Encounters Encounter Location Date [facility] [address] [facility] [address] [place] [address] 10/24/2023 Tony Reeves Plan Of Treatment No Information Progress Notes * Ashley FRANCISDOB:1955 (69 yo M)Acc No.[id number]:10/24/2023 Progress Note Patient:?Ashley FRANCIS Provider:?Tony Reeves DPM :1955???Age:68 Y???Sex:Male Fred e:10/24/2023 Address: [address] [facility] Pcp:Nikole Mauricio MD Subjective: * Chief Complaints: * ??? * Medical History:? Objective: * Vitals:? Assessment: Plan: * Treatment: * Images: * The named appointment provid er may or may not be the originator of this progress note, and it is not deemed complete until electronically signed by the appointment provider. Sign off status: Pending * Provider:Rhys Reeves DPM Date:? 024 Generated for Printi ng/Faxing/eTransmitting on:?05/06/2024 12:51 PM EST
--- OUTSIDE RECORDS SUMMARY | 2024-05-06 12:52 | XMS_ITS | Clinical Summary ---
Author Organization [facility] Address [address] [place] [address] Care Team Providers Care Trim Machine Operator Name Role Phone Nikole Mauricio Primary Care Provider [phone] Allergies Active Allergy Reactions Criticality Noted Date [...] [place] [id number] Care Teams Trim Machine Operator Relationship Specialty Start Date End Date Nikole Mauricio [address] [facility] [place] [address] PCP - General Internal Medicine 01/02/24
--- OUTSIDE RECORDS SUMMARY | 2024-05-06 12:52 | XMS_ITS | Patient Health Record ---
[facility] Address [address] [facility] [place] [address] Care Team Providers Care Geographic Information Systems Director Name Role Phone Nikole Mauricio MD Primary Care Provider Tony Ribeiro Unavailable [phone] Allergies Allergen (clinical drug ingredient) Drug/Non Drug [...] day Active Ketoconazole 2 % 1 application Job Estimator ally Once a day Active Trulicity 3 [...] Polyneuropathy due to diabetes mellitus type I ([id number]) 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 Vital Signs Height 6ft 2in in 08/08/2023 Weight 195 lbs 08/08/2023 BMI 25.03 kg/m2 08/08/2023 Procedures Procedure Date Ordered Date Performed Result Body Sit e 43233-CNGE SKIN LESIONS, OVER 4 05/25/2023 N/A 04048- I&D ABSCESS-COMPLICATED,MULTI 08/08/2023 N/A 60705-EXBK SKIN LESIONS, 2 TO 4 08/08/2023 N/A Encounters Encounter Location Date Provider Diagnosis [facility] [address] [place] [address] 05/25/2023 Tony Reeves Tinea unguium B35.1 ; Pain in right toe(s) M79.674 ; Pain in left toe(s) M79.675 ; Skin disease L98.9 ; Type 1 diabetes mellitus with diabetic polyneuropathy E10.42 ; 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 and Xerosis cutis L85.3 [facility] [address] [address] 08/08/2023 Tony Reeves Tinea unguium B35.1 ; Pain in right toe(s) M79.674 ; Pain in left toe(s) M79.675 ; Skin disease L98.9 ; Type 1 diabetes mellitus with diabetic polyneuropathy E10.42 ; 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 ; Xerosis cutis L85.3 ; Abscess, toe, right L02.611 and Tinea pedis B35.3 [facility] [address] [place] [address] 05/17/[address] [address] 08/08/[address] [address] 08/16/[address] [address] 10/19/2023 Tony [place] Assessments Encounter Date Diagnosis (ICD Code) Assessment [...] Treatment Pending Test Test Name Order Date 41435- I&D ABSCESS-COMPLICATED,MULTI 34090-WGYU SKIN LESIONS, OVER 4 05/25/19 24 57220-QGHA SKIN LESIONS, 2 TO 4 08/08/19 Insurance Providers Payer Name Payer Address Payer Phone Subscriber Number Group Number Insured Name Patient Relationship to Insured Coverage Start Date Coverage End Date [facility] [employer] Claims [address] [place] [id number] Ashley Francis Self - patient is the [...] bunionectomy colonoscopy esophagogastroduodenoscopy Hospitalization History Reason Date(Month/Year) C- fell off chair, fractured left shou lder
--- OUTSIDE RECORDS SUMMARY | 2024-05-06 12:52 | XMS_ITS | Encounter Summary ---
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); Infection of amputation stump, left lower extremity (CMS/HCC); Other toxic encephalopathy Social History Tobacco Use Types Packs/Day Years Used Date Smoking Tobacco: Never Assessed Sex and Gender Information Value Date Recorded Sex Assigned at Not on file Legal Sex Male 6:32 PM EST Gender Identity Not on file Sexual Orientation [...] (ABNORMAL) C-reactive protein (04/08/2024 4:52 AM EST) C-Reactive Protein 0.62(H) <=0.50 mg/dL LAB CHEMISTRY METHOD 04/08/2024 10:27 AM EST [facility] Blood Venous blood specimen / Unknown Venipuncture / Unknown 04/08/2024 4:52 AM EST 04/08/2024 9:04 AM EST us Jatin Landis MD LAB BLOOD ORDERABLES Final Resul t [facility] [address] [place] [address], * (ABNORMAL) Comprehensive metabolic panel (04/08/2024 4:52 AM EST) Pathologist [facility] Sodium 141 133 - 145 mmol/L LAB CHEMISTRY METHOD 04/08/2024 11:16 AM [facility] Potassium 4.5 3.5 - 5.5 mmol/L LAB CHEMISTRY METHOD 04/08/2024 11:16 AM [facility] Chloride 108 96 - 110 mmol/L LAB CHEMISTRY METHOD 04/08/2024 11:16 AM [facility] CO2 25 21 - 32 mmol/L LAB CHEMISTRY METHOD 04/08/2024 11:16 AM [facility] Anion Gap 8 3 - 11 LAB CHEMISTRY METHOD 04/08/2024 11:16 AM [facility] Glucose 98 70 - 100 mg/dL LAB CHEMISTRY METHOD 04/08/2024 11:16 AM [facility] BUN 15 5 - 25 mg/dL LAB CHEMISTRY METHOD 04/08/2024 11:16 AM [facility] Creatinine 0.73 0.70 - 1.30 mg/dL LAB CHEMISTRY METHOD 04/08/2024 11:16 AM [facility] eGFR 100 >=60 mL/min/1. 73m2 LAB CHEMISTRY METHOD 04/08/2024 11:16 AM [facility] Comment:Calculation based on the??Chronic Kidney Disease Epidemiology Collaboration (CKD-EPI) equation refit??without adjustment for race. BUN/Creatinine Ratio 20.5 LAB CHEMISTRY METHOD 04/08/2024 11:16 AM [facility] Calcium 9.0 8.5 - 10.5 mg/dL LAB CHEMISTRY METHOD 04/08/2024 11:16 AM [facility] AST (SGOT) 24 10 - 42 unit/L LAB CHEMISTRY METHOD 04/08/2024 11:16 AM [facility] ALT (SGPT) 39 10 - 60 unit/L LAB CHEMISTRY METHOD 04/08/2024 11:16 AM [facility] Comment:Results verified by repeat testing Alkaline Phosphatase 138(H) 42 - 121 unit/L LAB CHEMISTRY METHOD 04/08/2024 11:16 AM [facility] Total Protein 6.1 6.0 - 8.0 g/dL LAB CHEMISTRY METHOD 04/08/2024 11:16 AM [facility] Albumin 3.5 3.2 - 5.0 g/dL LAB CHEMISTRY METHOD 04/08/2024 11:16 AM [facility] Total Bilirubin 0.3 0.0 - 1.4 mg/dL LAB CHEMISTRY METHOD 04/08/2024 11:16 AM [facility] Blood Venous blood specimen / Unknown Venipuncture / Unknown 04/08/2024 4:52 AM EST 04/08/2024 9:04 AM EST us Jatin Landis MD LAB BLOOD ORDERABLES Final Resul t [facility] [address] [place] [address], * (ABNORMAL) Complete blood count (04/08/2024 4:52 AM EST) [facility] WBC 5.7 4.8 - 10.8 K/mcL LAB HEMETOLOGY METHOD 04/08/2024 10:00 AM [facility] RBC 4.20(L) 4.50 - 5.50 M/mcL LAB HEMETOLOGY METHOD 04/08/2024 10:00 AM [facility] Hemoglobin 14.2 13.5 - 17.5 g/dL LAB HEMETOLOGY METHOD 04/08/2024 10:00 AM [facility] Hematocrit 42.2 42.0 - 54.0 % LAB HEMETOLOGY METHOD 04/08/2024 10:00 AM [facility] MCV 100.5(H) 79.0 - 98.0 FL LAB HEMETOLOGY METHOD 04/08/2024 10:00 AM [facility] MCH 33.8(H) 27.0 - 32.0 pcg LAB HEMETOLOGY METHOD 04/08/2024 10:00 AM [facility] MCHC 33.6 32.0 - 37.0 g/dL LAB HEMETOLOGY METHOD 04/08/2024 10:00 AM [facility] RDW 13.3 11.0 - 15.0 % LAB HEMETOLOGY METHOD 04/08/2024 10:00 AM [facility] Platelets 330 130 - 400 K/mcL LAB HEMETOLOGY METHOD 04/08/2024 10:00 AM [facility] MPV 10.8 7.0 - 11.0 FL LAB HEMETOLOGY METHOD 04/08/2024 10:00 AM [facility] NRBC 0.0 <1.0 % LAB HEMETOLOGY METHOD 04/08/2024 10:00 AM EST [facility] NRBC Absolute 0.00 <0.10 K/mcL LAB HEMETOLOGY METHOD 04/08/2024 10:00 AM EST [facility] Blood Venous blood specimen / Unknown Venipuncture / Unknown 04/08/2024 4:52 AM EST 04/08/2024 9:04 AM EST us Jatin Landis MD LAB BLOOD ORDERABLES Final Resul t [facility] [address] [place] [address], documented in this encounter Visit Diagnoses Diagnosis 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
--- OUTSIDE RECORDS SUMMARY | 2024-05-06 12:52 | XMS_ITS | Encounter Summary ---
Author Organization [employer] Address [address] [place] [address] Care Team Providers Care Scraper Meat Name Role Phone Jatin Landis MD Primary Care Provider [phone] Encounter Details Date Type Department Care Team (Late st Contact Info) Description 03/25/2024 Lab Requisition [facility] - Main Lab [address] [facility] [place] [address] Jatin Landis MD [address] [place] [address] [address] [place], [phone] Chronic kidney disease, unspecified; Local infection [...] CBC auto differential (03/25/2024 5:17 AM EST) [facility] WBC 7.3 4.8 - 10.8 K/mcL LAB HEMETOLOGY METHOD 03/25/2024 9:28 AM [facility] RBC 3.70(L) 4.50 - 5.50 M/mcL LAB HEMETOLOGY METHOD 03/25/2024 9:28 AM [facility] Hemoglobin 12.7(L) 13.5 - 17.5 g/dL LAB HEMETOLOGY METHOD 03/25/2024 9:28 AM [facility] Hematocrit 38.6(L) 42.0 - 54.0 % LAB HEMETOLOGY METHOD 03/25/2024 9:28 AM [facility] MCV 103.8(H) 79.0 - 98.0 FL LAB HEMETOLOGY METHOD 03/25/2024 9:28 AM [facility] MCH 34.1(H) 27.0 - 32.0 pcg LAB HEMETOLOGY METHOD 03/25/2024 9:28 AM [facility] MCHC 32.9 32.0 - 37.0 g/dL LAB HEMETOLOGY METHOD 03/25/2024 9:28 AM [facility] RDW 13.8 11.0 - 15.0 % LAB HEMETOLOGY METHOD 03/25/2024 9:28 AM [facility] Platelets 310 130 - 400 K/mcL LAB HEMETOLOGY METHOD 03/25/2024 9:28 AM [facility] MPV 10.5 7.0 - 11.0 FL LAB HEMETOLOGY METHOD 03/25/2024 9:28 AM [facility] NRBC 0.0 <1.0 % LAB HEMETOLOGY METHOD 03/25/2024 9:28 AM [facility] NRBC Absolute 0.00 <0.10 K/mcL LAB HEMETOLOGY METHOD 03/25/2024 9:28 AM [facility] Neutrophils Relative 57.3 % LAB HEMETOLOGY METHOD 03/25/2024 9:28 AM [facility] Lymphocytes Relative 19.1 % LAB HEMETOLOGY METHOD 03/25/2024 9:28 AM [facility] Monocytes Relative 17.7 % LAB HEMETOLOGY METHOD 03/25/2024 9:28 AM [facility] Eosinophils Relative 4.1 % LAB HEMETOLOGY METHOD 03/25/2024 9:28 AM [facility] Basophils Relative 1.4 % LAB HEMETOLOGY METHOD 03/25/2024 9:28 AM [facility] Immature Granulocytes Relative 0.4 % LAB HEMETOLOGY METHOD 03/25/2024 9:28 AM [facility] Neutrophils Absolute 4.17 1.50 - 7.00 K/mcL LAB HEMETOLOGY METHOD 03/25/2024 9:28 AM [facility] Lymphocytes Absolute 1.39 1.00 - 5.00 K/mcL LAB HEMETOLOGY METHOD 03/25/2024 9:28 AM [facility] Monocytes Absolute 1.29(H) 0.20 - 1.00 K/mcL LAB HEMETOLOGY METHOD 03/25/2024 9:28 AM [facility] Eosinophils Absolute 0.30 0.00 - 0.50 K/mcL LAB HEMETOLOGY METHOD 03/25/2024 9:28 AM [facility] Basophils Absolute 0.10 0.00 - 0.20 K/mcL LAB HEMETOLOGY METHOD 03/25/2024 9:28 AM [facility] Immature Granulocytes Absolute 0.03 0.00 - 0.03 K/mcL LAB HEMETOLOGY METHOD 03/25/2024 9:28 AM [facility] Blood Venous blood specimen / Unknown Venipuncture / Unknown 03/25/2024 5:17 AM EST 03/25/2024 9:03 AM EST us Jatin Landis MD LAB BLOOD ORDERABLES Final Resul t Performing Organization Address [facility]/ZIP Co de Phone Number [facility] [address] [place] [address], [place] [phone] * (ABNORMAL) C-reactive protein (03/25/2024 5:17 AM EST) Pathologist [facility] C-Reactive Protein 1.04(H) <=0.50 mg/dL LAB CHEMISTRY METHOD 03/25/2024 9:46 AM [facility] Blood Venous blood specimen / Unknown Venipuncture / Unknown 03/25/2024 5:17 AM EST 03/25/2024 9:03 AM EST Jatin Landis MD LAB BLOOD ORDERABLES Final Resul t Performing Organization Address [facility]/ZIP Co de Phone Number [facility] [address] [place] [address], [place] [phone] * (ABNORMAL) Comprehensive metabolic panel (03/25/2024 5:17 AM EST) Pathologist [facility] Sodium 141 133 - 145 mmol/L LAB CHEMISTRY METHOD 03/25/2024 9:46 AM [facility] Potassium 4.2 3.5 - 5.5 mmol/L LAB CHEMISTRY METHOD 03/25/2024 9:46 AM [facility] Chloride 106 96 - 110 mmol/L LAB CHEMISTRY METHOD 03/25/2024 9:46 AM [facility] CO2 27 21 - 32 mmol/L LAB CHEMISTRY METHOD 03/25/2024 9:46 AM [facility] Anion Gap 8 3 - 11 LAB CHEMISTRY METHOD 03/25/2024 9:46 AM [facility] Glucose 77 70 - 100 mg/dL LAB CHEMISTRY METHOD 03/25/2024 9:46 AM [facility] BUN 17 5 - 25 mg/dL LAB CHEMISTRY METHOD 03/25/2024 9:46 AM [facility] Creatinine 0.76 0.70 - 1.30 mg/dL LAB CHEMISTRY METHOD 03/25/2024 9:46 AM [facility] eGFR 99 >=60 mL/min/1. 73m2 LAB CHEMISTRY METHOD 03/25/2024 9:46 AM [facility] Comment:Calculation based on the??Chronic Kidney Disease Epidemiology Collaboration (CKD-EPI) equation refit??without adjustment for race. BUN/Creatinine Ratio 22.4 LAB CHEMISTRY METHOD 03/25/2024 9:46 AM [facility] Calcium 9.0 8.5 - 10.5 mg/dL LAB CHEMISTRY METHOD 03/25/2024 9:46 AM [facility] AST (SGOT) 24 10 - 42 unit/L LAB CHEMISTRY METHOD 03/25/2024 9:46 AM [facility] ALT (SGPT) 20 10 - 60 unit/L LAB CHEMISTRY METHOD 03/25/2024 9:46 AM [facility] Alkaline Phosphatase 176(H) 42 - 121 unit/L LAB CHEMISTRY METHOD 03/25/2024 9:46 AM [facility] Total Protein 5.7(L) 6.0 - 8.0 g/dL LAB CHEMISTRY METHOD 03/25/2024 9:46 AM [facility] Albumin 3.3 3.2 - 5.0 g/dL LAB CHEMISTRY METHOD 03/25/2024 9:46 AM [facility] Total Bilirubin 0.3 0.0 - 1.4 mg/dL LAB CHEMISTRY METHOD 03/25/2024 9:46 AM [facility] Blood Venous blood specimen / Unknown Venipuncture / Unknown 03/25/2024 5:17 AM EST 03/25/2024 9:03 AM EST Jatin Landis MD LAB BLOOD ORDERABLES Final [facility]ul t [facility] [address] [place] [address], documented in this encounter Visit Diagnoses Diagnosis Chronic kidney disease, unspecified Local infection of the skin and subcutaneous tissue, unspecified documented in this encounter Care Teams Scraper Meat Relationship Specialty Start Date End Date Jatin Landis MD [address] [place] [address], [phone] PCP - General Family Medicine 03/25/24 documented as of this encounter
--- OUTSIDE RECORDS SUMMARY | 2024-05-06 12:52 | XMS_ITS | Data Portability ---
Author Organization [place] [facility], Main Office Address [address], [address] [place] [address] Care Team Providers Care Control Room Technician Name Role Phone DONOVAN DONATO - 2ND FLOOR OTHER ZANE MAURICIO Primary Care Provider [phone] Assessment Encounter Date Assessment Date Assessment LastModified [...] Organization Details Recorded Time Atrial fibrillatio n 10378085 Active 2023 JAVY MABRY NP [address], [address], [place], [address], [facility] [employer] 4 14:46:48 Osteomyelit is 33067870 Active 2023 JAVY MABRY NP [address], [address], [place], [address], [facility] [employer] 4 14:46:56 Open wound of skin 903011254219 Active 2023 JOSH MABRY NP [address], [address], [place], [address], [facility] [employer] 4 14:47:21 Essential hypertensio n 86877497 Active 2023 JAVY MABRY, DAVIDA [address], [address], [place], [address], [employer] [facility] 4 14:47:31 Hyperlipide pablo 36786160 Active 2023 JAVY MABRY NP [address], [address], [place], [address], [facility] 4 14:47:35 Alcohol abuse 24095052 Active 2023 JAVY MABRY NP [address], [address], [place], [address], [facility] 4 14:47:58 Falls 535953458 Active 2023 JAVY MABRY NP [address], [address], [place], [address], [facility] 4 14:53:49 Type 2 diabetes mellitus 03291396 Active 2023 JAVY MABRY NP [address], [place], [address], [facility] 4 15:00:44 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 Medical Equipment None Reported. Allergies Allergen ID Allergen Name Allergen Category Reaction Reaction Severity Criticality Documentation Date Start Date Code Code System Note Provider Name and Address Organization Details Recorded Time 19408 Bactrim medicatio n Not available Not available Not available 03/23/2024 95293 9 RxNorm Not Available Not Available Not Available 65248 vancomyci n medicatio n Not available Not available Not available 03/23/2024 58341 RxNorm Not Available Not Available Not Available Medications Not known to be on any medication Vitals Date Recorded Body weight Heart rate Respiratory rate Body temperature Oxygen saturation Oxygen saturation in Arterial blood by Pulse oximetry Systolic blood pressure Diastolic blood pressure Provider Name and Address Organization Details Last Updated DateTime 4 02305.9 2 g 74 /min 16 /min 97.1 [degF] 97 % 97 % 102 mm[Hg] 65 mm[Hg] JAVY MABRY NP [address], [address], [place], [address], [employer] [facility] 4 14:45:21 Date Recorded Body weight Heart rate Respiratory rate Body temperature Oxygen saturation Oxygen saturation in Arterial blood by Pulse oximetry Systolic blood pressure Diastolic blood pressure Provider Name and Address Organization Details Last Updated DateTime 5 65381.4 4 g 67 /min 18 /min 97.4 [degF] 98 % 98 % 150 mm[Hg] 80 mm[Hg] Jasmin La NP [address], [address], [place], [address], [facility] 5 16:11:23 Date Recorded Body weight Heart rate Respiratory rate Body temperature Oxygen saturation Oxygen saturation in Arterial blood by Pulse oximetry Systolic blood pressure Diastolic blood pressure Provider Name and Address Organization Details Last Updated DateTime 5 56456 g 82 /min 16 /min 97.2 [degF] 95 % 95 % 134 mm[Hg] 60 mm[Hg] Jasmin La NP [address], [address], [place], [address], [facility] 5 20:25:18 Date Recorded Body weight Heart rate Respiratory rate Body temperature Oxygen saturation Oxygen saturation in Arterial blood by Pulse oximetry Systolic blood pressure Diastolic blood pressure Provider Name and Address Organization Details Last Updated DateTime 5 18080 g 76 /min 18 /min 97.8 [degF] 99 % 99 % 126 mm[Hg] 71 mm[Hg] Jasmin La NP [address], [address], [place], [address], [facility] 5 09:45:11 Date Recorded Systolic blood pressure Diastolic blood pressure Provider Name and Address Organization Details Last Updated DateTime 03/25/2024 112 mm[Hg] 78 mm[Hg] Jatin Landis MD [address], [address], [place], [address], [facility] 03/25/2024 10:06:23 Social History Question Answer Notes LastModified by Organizat ion Details LastModified Time Tobacco Smoking Status Never Smoker JAVY MABRY NP [address], [address], [place], [address], [facility] 03/23/2024 14:49:48 Do You Have An [...] virus (RSV), unspecified 3 completed Eulalia Chandra [facility] 03/26/2024 14:51:00 Hep B, unspecified formulation 8 [facility] 14:51:16 [facility] 5 [facility]24 14:51:30 Pneumococcal conjugate PCV 13 3 completed Eulalia Chandra [facility] 03/26/2024 14:55:05 pneumococcal polysaccharide PPV23 6 completed Eulalia brasher [facility] 03/26/2024 14:55:34 pneumococcal polysaccharide PPV23 6 completed Eulalia Prateek null, [facility] 03/26/2024 14:55:41 influenza, unspecified formulation 2 completed Eulalia Prateek null, [facility] 03/26/2024 14:56:07 influenza, unspecified formulation 3 completed Eulalia Prateek null, [facility] 03/26/2024 14:56:17 influenza, unspecified formulation 4 completed Eulalia Prateek null, [facility] 03/26/2024 14:56:27 meningococcal ACWY, unspecified formulation 9 completed Eulalia Prateek null, [facility] 03/26/2024 14:56:54 SARS-COV-2 (COVID-19) vaccine, UNSPECIFIED 1 completed [facility] 03/26/2024 14:57:07 SARS-COV-2 (COVID-19) vaccine, UNSPECIFIED 1 completed Eulalia Prateek null, [facility] 03/26/2024 14:57:15 SARS-COV-2 (COVID-19) vaccine, UNSPECIFIED 1 completed Eulalia Prateek null, [facility] 03/26/2024 14:57:24 SARS-COV-2 (COVID-19) vaccine, UNSPECIFIED 2 completed Eulalia Prateek null, [facility] 03/26/2024 14:57:32 SARS-COV-2 (COVID-19) vaccine, UNSPECIFIED 2 completed Eulalia Prateek null, [facility] 03/26/2024 14:57:40 SARS-COV-2 (COVID-19) vaccine, UNSPECIFIED 3 completed Eulalia Prateek null, [facility] 03/26/2024 14:57:48 zoster, unspecified formulation 3 completed [facility] 03/26/2024 14:58:02 zoster, unspecified formulation 3 completed Eulalia Prateek null, [facility] 03/26/2024 14:58:10 Past Encounters Encounter ID Performer Location Encounter Start Date Encounter Closed Date Diagnosis/Indication Diagnosis SNOMED-CT Code Diagnosis ICD10 Code Diagnosis Note [id number] JAVY MABRY NP [address] [address] 03/23/2024 14:38:33 03/25/2024 12:39:17 Alcohol abuse 05951644 F10.10 monitor for any signs of withdrawlf olic 1 mg dailyNaltr exone 60 mg dailyThiam ine 100 mg dailyMag ox 400 mg dailymvi dailyVit C 500 dailyBuspa r 10 mg bidCymbalt a 60 mg dailyWellb utrin 150 mg daily Osteomyelitis 81476342 M 86.9 Doxycyline 100 mg bid to 03/25monit or for any signs of infections Open wound of skin 65793 61782 01 T14.8XXA Doxycyline 100 mg bid to 03/25monit or for any signs of infections wound consult [place] 604573955 R29.6 PTOT eval and treatfall precaution sfrequent safety checks Atrial fibrillation 4943 6004 I48.91 Diltiazem er 180 mg dailyMetop rolol 25 mg bidmonitor heart rate Essential hypertension 66700273 I10 Diltiazem er 180 mg dailyMetop rolol 25 mg bidmonitor bp Hyperlipidemia 78860392 E78.5 atorvastat in 20 mg daily Type 2 dylon betes mellitus 32392389 E11.9 monitor glucose [id number] Jatin Landis MD [address] [address] 03/25/2024 10:05:56 03/26/2024 13:18:46 Alcohol abuse 03993062 F10.132 see HPIcontinu ed on thiamine and supplement seval by addiction med [facility] for [facility] Osteomyelitis 59095186 M 86.052 carrying dx left chronic osteo at bka sitestarte d empiricall y on doxy through 03/25repea t cbcID / ortho eval prnmonitor siteupdate ortho with concerns Open wound of skin 56944 48362 01 T14.8XXA see above with chronic infection Atrial fibrillation 4943 6004 I48.0 pradaxa 150 mg bidmetopro lol 25 mg bidmonitor for rate control Essential hypertension 93316967 I10 Diltiazem 180 mg qdlisinopr il 10 mg qdMetoprol ol 25 mg bidmonitor bp and need to titrate Hyperlipidemia 95220951 E78.2 lipitor 20 mg qdcontinue d Type 2 dylon betes mellitus 98216375 E11.9 diet controlled now off metforminm ost recent hba1c wnrmonitor accucheck prn Asthenia 61991133 R53.1 weakness and gait instabilit yPT OT Eval and treatmonit or fall risk and need for increased support in community Marginal z one lymphoma 265491373 C83.07 carrying dx added to PMHlimited informatio n availabler equest prior notes from PCP Benign pro static hyperplasia without outflow obstruction 367845142 N40.0 added to PMHmonitor for retention [id number] Jasmin La NP [address] [address] 03/28/2024 16:08:27 03/29/2024 11:48:40 Alcohol abuse 05073017 F10.132 see HPInaltrex one 50 mg po qdcontinue d on thiamine and supplement seval'd by addiction services [facility] work to be involved at [facility] need for increased support in community Osteomyelitis 90897272 M 86.052 carrying dx left chronic osteo at a sitecomple nori ramon empiricall y through 03/25ID / ortho eval prnmonitor siteupdate ortho with concerns Open wound of skin 29050 28464 01 T14.8XXA see above with chronic infection Asthenia 54408636 R53.1 weakness and gait instabilit yPT OT Eval and treatmonit or fall risk and need for increased support in community Atrial fibrillation 4943 6004 I48.0 contpradax a 150 mg bidmetopro lol 25 mg bidmonitor for rate control Essential hypertension 29133946 I10 controlled contDiltia zem 180 mg qdlisinopr il 10 mg qdMetoprol ol 25 mg bidmonitor bp and need to titrate Hyperlipidemia 15501508 E78.2 lipitor 20 mg qdcontinue d Type 2 dylon betes mellitus 87003548 E11.9 diet controlled , reportedha d low BS in hospital with possible low BS related to skin conditionn ow off metforminm ost recent hba1c wnrmonitor accucheck prn Marginal z one lymphoma 544946581 C83.07 with hx oflimited informatio n availablef u with oncology 04/05 Atopic dermatitis 374383 01 L20.9 pt with notable scab like [...] cular 04/11 @ 13pm. Rheumatoid arthritis 698 84312 M06.9 he denies arthritis today however has likely underlying arthritisf u with Rheumatoid appt with Dr Hart 07/04 @ 11am. [id number] Jasmin La NP [address] [address] 04/05/2024 12:48:06 04/09/2024 09:15:27 Atopic dermatitis 63102000 L20.9 pt with notable scab like ulceration [...] changesVas cular 04/11 @ 13pm. Alcohol abuse 79546979 F 10.132 see HPInaltrex one 50 mg po qdcontinue d on thiamine and supplement seval'd by addiction services in hospitalso cial work to be involved at facilitymo nitor need for increased support in community Osteomyelitis 88986177 M 86.052 carrying dx left chronic osteo at bka sitecomple nori doxy empiricall y through 03/25ID / ortho eval prnmonitor site for s/s infectionu pdate ortho with concerns Open wound of skin 59851 16594 01 T14.8XXA see above with chronic infection Asthenia 97138794 R53.1 weakness and gait instabilit yPT OT Eval and treatmonit or fall risk and need for increased support in community Atrial fibrillation 4943 6004 I48.0 contpradax a 150 mg bidmetopro lol 25 mg bidmonitor for rate control Essential hypertension 89994774 I10 controlled contDiltia zem 180 mg qdlisinopr il 10 mg qdMetoprol ol 25 mg bidmonitor bp and need to titrate Hyperlipidemia 80499785 E78.2 lipitor 20 mg qdcontinue d Type 2 dylon betes mellitus 79164246 E11.9 diet controlled , reportedha d low BS in hospital with possible low BS related to skin conditionn ow off metforminm ost recent hba1c wnrmonitor accucheck prn Marginal z one lymphoma 820028568 C83.07 with hx oflimited informatio n availablef u with oncology 04/05result s and consult pending Rheumatoid arthritis 698 98934 M06.9 he denies arthritis today however has likely underlying arthritisf u with Rheumatoid appt with Dr Hart 07/04 @ [facility]. [id number] Jasmin La NP [facility] [address] [address] 04/12/2024 09:03:45 04/15/2024 16:27:46 Osteomyelitis 31181168 M86.052 resolvedca rrying dx left chronic osteo at bka sitecomple nori doxy empiricall y through 03/25ID / ortho eval prnmonitor site for s/s infection outpt with pcpupdate ortho with concerns outpt prn Atopic dermatitis 016584 01 L20.9 mostly resolvedpt with notable scab like ulceration s and peeling of skin in webs of fingers now resolvingc ont triamcinol one 0.5% oint 1 dime size area to affected hands until resolved, will go home with tube for a few more daysmonito r for changes outpt with pcp Alcohol abuse 42247892 F 10.132 see HPInaltrex one 50 mg po qdcontinue d on thiamine and supplement seval'd by addiction services in hospital [facility] need for increased support in community outpt with vna and pcp services in place, also reports a cleaning service helps him Open wound of skin 89885 89407 01 T14.8XXA see above with chronic infection now resolvedfu with wound outpt, wound almost healed Asthenia 68297630 R53.1 seems back to baselinePT OT Eval and treat outpt prnmonitor fall risk and need for increased support in communityv na services in place per social science instructor Atrial fibrillation 4943 6004 I48.0 contpradax a 150 mg bidmetopro lol 25 mg bidmonitor for rate control outpt with pcp Essential hypertension 94775703 I10 controlled contDiltia zem 180 mg qdlisinopr il 10 mg qdMetoprol ol 25 mg bidmonitor bp and need to titrate outpt with pcp Hyperlipidemia 85177321 E78.2 lipitor 20 mg qdmonitor outpt with pcp Type 2 dylon betes mellitus 91599325 E11.9 diet controlled , reportedno w off metforminm ost recent hba1c wnrBS very stable heremonito r accucheck prn outpt with pcp Marginal z one lymphoma 216938177 C83.07 with hx oflimited informatio n availablef u with oncology prn outptconsu lt note not received here from 04/05 appt Rheumatoid arthritis 698 95260 M06.9 he denies arthritis today however has likely underlying arthritisf u with Rheumatoid appt with Dr Hart 07/04 @ 11am as scheduled Peripheral arterial insufficiency 9895191862 00745 I73.9 with L BKA and osteo healednote [...] ID Guarantor Name 03/23/2024 1 [place] [employer] Ashley Francis [id number] Ashley Francis 03/25/2024 1 [place] [employer] Ashley Francis [id number] Ashley Francis 03/25/2024 2 [place] [facility] [id number] Ashley Francis 03/28/2024 1 [place] [employer] Ashley Francis [id number] Ashley Francis 03/28/2024 2 [place] [facility] Ashley Francis [id number] Ashley Francis 04/05/2024 1 [employer] (MEDICARE REPLACEMENT PPO) [id number] Ashley Francis [id number] Ashley Francis 04/12/2024 1 [employer] (MEDICARE REPLACEMENT PPO) [id number] Ashley Francis [id number] Ashley Francis Notes Date Note Type Note [...] aimlessly from one subject to another. JAVY MABRY NP [address], [address], [place], [address], [employer] [facility] 03/23/2024 15:11:32 4 text/htm l Patient is [...] care and therapy Jatin Landis MD [address], [address], [place], [address], [facility] 03/25/2024 10:32:21 5 text/htm l Pt [...] appt was taken. Jasmin La NP [address], [address], [place], [address], [facility] [employer] 03/28/2024 19:26:02 5 text/htm l Pt is [...] appt was taken. Jasmin La NP [address], [address], [place], [address], [place] [facility] [employer] [facility] 04/05/2024 20:47:53 5 text/htm victor m Sheffield is seen for a discharge visit. PMH: [...] fu soon. Pt has been ambulating with Victor M WEBB, FWW, per therapy here. He was started on [...] 90% of redness and scale resolved. Jasmin La NP [address], [address], [place], [address], [facility] - [employer] 04/12/2024 10:20:27
--- OUTSIDE RECORDS SUMMARY | 2024-05-06 12:52 | XMS_ITS | Referral Summary ---
Author Organization [facility] Address [address] [place] [address] Care Team Providers Care Numerical Control Machine Operator Name Role Phone Nikole Mauricio Primary Care Provider [phone] Allergies Active Allergy Reactions Criticality Noted Date [...] [place] [id number] MEDICARE Care Teams Numerical Control Machine Operator Relationship Specialty Start Date End Date Nikole Mauricio [address] [place] [address] PCP - General Internal Medicine 01/02/24
--- OUTSIDE RECORDS SUMMARY | 2024-05-06 12:52 | XMS_ITS | Clinical Summary ---
Author Organization [facility] Address [address] [place] [address] Phone Care Team Providers Care Molecular Genetic Pathologist Name Role Phone Jatin Landis MD Primary Care Provider [phone] Encounters Date Type Department Care Team Description 04/08/2024 Lab Requisition [facility] Lab [address] [place] [address] Jatin Landis MD Non-pressure chronic ulcer of unspecified part of left lower leg with unspecified severity (CMS/HCC); Infection of amputation stump, left lower extremity (CMS/HCC); Other toxic encephalopathy 03/25/2024 Lab Requisition [facility] Lab [address] [place] [address] Jatin Landis MD Chronic kidney [...] Last Done Comments COVID-19 Vaccine (#1) 1962 Diabetes: Annual Foot Exam 1967 Diabetes: Annual Retina Eye Exam 1967 Hepatitis A Vaccines (1 of 2 - Risk 2-dose series) 02/23/1976 Pneumococcal Vaccine: 50+ Years (1 of 2 - PCV) 02/23/1976 Zoster Vaccines (1 of 2) 02/23/1976 DTaP,Tdap,and Td Vaccines (2 - Td or Tdap) 05/20/2004 04/22/2004 RSV Immunization Patients 60 + Years [...] patient's age to complete this topic Meningococcal B Vacine Aged Out No lo nger eligible based on patient's age to complete [...] Complete blood count (04/08/2024 4:52 AM EST) WBC 5.7 4.8 - 10.8 K/mcL LAB HEMETOLOGY METHOD 04/08/2024 10:[address] [facility] RBC 4.20(L) 4.50 - 5.50 M/mcL LAB HEMETOLOGY METHOD 04/08/2024 10:[address] [facility] Hemoglobin 14.2 13.5 - 17.5 g/dL LAB HEMETOLOGY METHOD 04/08/2024 10:[address] [facility] Hematocrit 42.2 42.0 - 54.0 % LAB HEMETOLOGY METHOD 04/08/2024 10:[address] [facility] MCV 100.5(H) 79.0 - 98.0 FL LAB HEMETOLOGY METHOD 04/08/2024 10:[address] [facility] MCH 33.8(H) 27.0 - 32.0 pcg LAB HEMETOLOGY METHOD 04/08/2024 10:00 AM EST [facility] MCHC 33.6 32.0 - 37.0 g/dL LAB HEMETOLOGY METHOD 04/08/2024 10:[address] [facility] RDW 13.3 11.0 - 15.0 % LAB HEMETOLOGY METHOD 04/08/2024 10:[address] [facility] Platelets 330 130 - 400 K/mcL LAB HEMETOLOGY METHOD 04/08/2024 10:[address] [facility] MPV 10.8 7.0 - 11.0 FL LAB HEMETOLOGY METHOD 04/08/2024 10:[address] [facility] NRBC 0.0 <1.0 % LAB HEMETOLOGY METHOD 04/08/2024 10:[address] [facility] NRBC Absolute 0.00 <0.10 K/mcL LAB HEMETOLOGY METHOD 04/08/2024 10:[address] [facility] Blood Venous blood specimen / Unknown Venipuncture / Unknown 04/08/2024 4:52 AM EST 04/08/2024 9:04 AM EST us Jatin Landis MD LAB BLOOD ORDERABLES Final Resul t [facility] [address] [place] [address], * (ABNORMAL) C-reactive protein (04/08/2024 4:52 AM EST) Only the most recent of2 resultswithin the time period is included. C-Reactive Protein 0.62(H) <=0.50 mg/dL LAB CHEMISTRY METHOD 04/08/2024 10:[address] [facility] Blood Venous blood specimen / Unknown Venipuncture / Unknown 04/08/2024 4:52 AM EST 04/08/2024 9:04 AM EST us Jatin Landis MD LAB BLOOD ORDERABLES Final Resul t [facility] [address] [place] [address], [place] [phone] * (ABNORMAL) Comprehensive metabolic panel (04/08/2024 4:52 AM EST) Only the most recent of2 resultswithin the time period is included. Sodium 141 133 - 145 mmol/L LAB CHEMISTRY METHOD 04/08/2024 11:[address] [facility] Potassium 4.5 3.5 - 5.5 mmol/L LAB CHEMISTRY METHOD 04/08/2024 11:[address] [facility] Chloride 108 96 - 110 mmol/L LAB CHEMISTRY METHOD 04/08/2024 11:[address] [facility] CO2 25 21 - 32 mmol/L LAB CHEMISTRY METHOD 04/08/2024 11:[address] [facility] Anion Gap 8 3 - 11 LAB CHEMISTRY METHOD 04/08/2024 11:[address] [facility] Glucose 98 70 - 100 mg/dL LAB CHEMISTRY METHOD 04/08/2024 11:[address] [facility] BUN 15 5 - 25 mg/dL LAB CHEMISTRY METHOD 04/08/2024 11:[address] [facility] Creatinine 0.73 0.70 - 1.30 mg/dL LAB CHEMISTRY METHOD 04/08/2024 11:[address] [facility] eGFR 100 >=60 mL/min/1. 73m2 LAB CHEMISTRY METHOD 04/08/2024 11:[address] [facility] Comment:Calculation based on the??Chronic Kidney Disease Epidemiology Collaboration (CKD-EPI) equation refit??without adjustment for race. BUN/Creatinine Ratio 20.5 LAB CHEMISTRY METHOD 04/08/2024 11:[address] [facility] Calcium 9.0 8.5 - 10.5 mg/dL LAB CHEMISTRY METHOD 04/08/2024 11:[address] [facility] AST (SGOT) 24 10 - 42 unit/L LAB CHEMISTRY METHOD 04/08/2024 11:[address] [facility] ALT (SGPT) 39 10 - 60 unit/L LAB CHEMISTRY METHOD 04/08/2024 11:[address] [facility] Comment:Results verified by repeat testing Alkaline Phosphatase 138(H) 42 - 121 unit/L LAB CHEMISTRY METHOD 04/08/2024 11:[address] [facility] Total Protein 6.1 6.0 - 8.0 g/dL LAB CHEMISTRY METHOD 04/08/2024 11:[address] [facility] Albumin 3.5 3.2 - 5.0 g/dL LAB CHEMISTRY METHOD 04/08/2024 11:[address] [facility] Total Bilirubin 0.3 0.0 - 1.4 mg/dL LAB CHEMISTRY METHOD 04/08/2024 11:[address] [facility] Blood Venous blood specimen / Unknown Venipuncture / Unknown 04/08/2024 4:52 AM EST 04/08/2024 9:04 AM EST us Jatin Landis MD LAB BLOOD ORDERABLES Final Resul t [facility] [address] [place] [address], * (ABNORMAL) CBC auto differential (03/25/2024 5:17 AM EST) WBC 7.3 4.8 - 10.8 K/mcL LAB HEMETOLOGY METHOD 03/25/2024 9:[address] [facility] RBC 3.70(L) 4.50 - 5.50 M/mcL LAB HEMETOLOGY METHOD 03/25/2024 9:[address] [facility] Hemoglobin 12.7(L) 13.5 - 17.5 g/dL LAB HEMETOLOGY METHOD 03/25/2024 9:[address] [facility] Hematocrit 38.6(L) 42.0 - 54.0 % LAB HEMETOLOGY METHOD 03/25/2024 9:[address] [facility] MCV 103.8(H) 79.0 - 98.0 FL LAB HEMETOLOGY METHOD 03/25/2024 9:[address] [facility] MCH 34.1(H) 27.0 - 32.0 pcg LAB HEMETOLOGY METHOD 03/25/2024 9:[address] [facility] MCHC 32.9 32.0 - 37.0 g/dL LAB HEMETOLOGY METHOD 03/25/2024 9:[address] [facility] RDW 13.8 11.0 - 15.0 % LAB HEMETOLOGY METHOD 03/25/2024 9:[address] [facility] Platelets 310 130 - 400 K/mcL LAB HEMETOLOGY METHOD 03/25/2024 9:[address] [facility] MPV 10.5 7.0 - 11.0 FL LAB HEMETOLOGY METHOD 03/25/2024 9:[address] [facility] NRBC 0.0 <1.0 % LAB HEMETOLOGY METHOD 03/25/2024 9:[address] [facility] NRBC Absolute 0.00 <0.10 K/mcL LAB HEMETOLOGY METHOD 03/25/2024 9:[address] [facility] Neutrophils Relative 57.3 % LAB HEMETOLOGY METHOD 03/25/2024 9:[address] [facility] Lymphocytes Relative 19.1 % LAB HEMETOLOGY METHOD 03/25/2024 9:[address] [facility] Monocytes Relative 17.7 % LAB HEMETOLOGY METHOD 03/25/2024 9:28 AM EST [facility] Eosinophils Relative 4.1 % LAB HEMETOLOGY METHOD 03/25/2024 9:[address] [facility] Basophils Relative 1.4 % LAB HEMETOLOGY METHOD 03/25/2024 9:[address] [facility] Immature Granulocytes Relative 0.4 % LAB HEMETOLOGY METHOD 03/25/2024 9:28 AM EST [facility] Neutrophils Absolute 4.17 1.50 - 7.00 K/mcL LAB HEMETOLOGY METHOD 03/25/2024 9:[address] [facility] Lymphocytes Absolute 1.39 1.00 - 5.00 K/mcL LAB HEMETOLOGY METHOD 03/25/2024 9:[address] [facility] Monocytes Absolute 1.29(H) 0.20 - 1.00 K/mcL LAB HEMETOLOGY METHOD 03/25/2024 9:28 AM EST [facility] Eosinophils Absolute 0.30 0.00 - 0.50 K/mcL LAB HEMETOLOGY METHOD 03/25/2024 9:28 AM EST [facility] Basophils Absolute 0.10 0.00 - 0.20 K/mcL LAB HEMETOLOGY METHOD 03/25/2024 9:[address] [facility] Immature Granulocytes Absolute 0.03 0.00 - 0.03 K/mcL LAB HEMETOLOGY METHOD 03/25/2024 9:[address] [facility] Blood Venous blood specimen / Unknown Venipuncture / Unknown 03/25/2024 5:17 AM EST 03/25/2024 9:03 AM EST us Jatin Landis MD LAB BLOOD ORDERABLES Final Resul t [facility] [address] [place] [address], [place] [phone] from Last 3 Months Insurance MEDICARE [employer] MEDICARE ADVANTAGE Care Teams Molecular Genetic Pathologist Relationship Specialty Start Date End Date Jatin Landis MD [address] [place] [address], [phone] PCP - General Family Medicine 03/25/24
--- OUTSIDE RECORDS SUMMARY | 2024-05-06 12:52 | XMS_ITS ---
Author Organization [facility] Address [address] [place] [address] Care Team Providers Care Adult Educator Name Role Phone Nikole Mauricio MD Primary Care Provider Tony Ribeiro [phone] REASON FOR VISIT Ciclopirox Encounters Encounter Location Date Provider Diagnosis [facility] [address] [place] [address] 08/16/2023 Tony Reeves Plan Of Treatment No Information Progress Notes * Ashley FRANCISDOB:1955 (68 yo M)Acc No.[id number]:08/16/2023 Patient:?Ashley Francis :1955???Age:68 Y???Sex:Male Address: [place] [address] * true * Date:? Generated for Santy bower/Tressa/eTransmitting on:?05/06/2024 12:51 PM EST
--- OUTSIDE RECORDS SUMMARY | 2024-05-06 12:52 | XMS_ITS | Continuity of Care Document ---
Author Organization [facility], [facility] Address [address] [place] [address] Care Team Providers Care Supervisor Functional Testing Name Role Phone DONOVAN DONATO - 2ND [...] Organization Details Recorded Time Atrial fibrillatio n 55762069 Active 2023 JAVY MABRY NP [address] [facility], [facility] [address], [place], [address], [facility] 4 14:46:48 Osteomyelit is 39634473 Active 2023 JAVY MABRY NP [address] [facility], [address], [place], [address], [facility] 4 14:46:56 Open wound of skin 078077065255 Active 2023 JOSH MABRY NP [address] [facility], [address], [place], [address], [facility] 4 14:47:21 Essential hypertensio n 42641800 Active 2023 JAVY MABRY, DAVIDA [address], [address], [place], [address], [facility] 4 14:47:31 Hyperlipide pablo 28169802 Active 2023 JAVY MABRY, [employer] [address], [address], [place], [address], [facility] 4 14:47:35 Alcohol abuse 59149411 Active 2023 JAVY YUMIKOADRIANE, [employer] [address], [place], [address], [facility] 4 14:47:58 Falls 825085271 Active 2023 JAVY CALDERONDAVIDA FORREST [address], [address], [place], [address], [facility] 4 14:53:49 Type 2 diabetes mellitus 21094617 Active 2023 JAVY MABYR NP [address], [place], [address], [facility] 4 15:00:44 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 Medical Equipment None Reported. Allergies Allergen ID Allergen Name Allergen Category Reaction Reaction Severity Criticality Documentation Date Start Date Code Code System Note Provider Name and Address Organization Details Recorded Time 07668 Bactrim medicatio n Not available Not available Not available 03/23/2024 50402 9 RxNorm Not Available Not Available Not Available 87414 vancomyci n medicatio n Not available Not available Not available 03/23/2024 99189 RxNorm Not Available Not Available Not Available Medications Not known to be on any medication Vitals Date Recorded Body weight Heart rate Respiratory rate Body temperature Oxygen saturation Oxygen saturation in Arterial blood by Pulse oximetry Systolic blood pressure Diastolic blood pressure Provider Name and Address Organization Details Last Updated DateTime 5 93823 g 76 /min 18 /min 97.8 [degF] 99 % 99 % 126 mm[Hg] 71 mm[Hg] Jasmin La NP [address] [facility], [address], [place], [address], [employer] 5 09:45:11 Social History Question Answer Notes LastModified by Organizat ion Details LastModified Time Tobacco Smoking Status Never Smoker JAVY MABRY NP [address] [facility], [address], [place], [address], [facility] 03/23/2024 14:49:48 Do You Have An Advance [...] virus (RSV), unspecified 3 completed Eulalia brasher [facility] [employer] | Anywhere [facility] 03/26/2024 14:51:00 Hep B, unspecified formulation 8 completed Eulalia brasher [facility] [employer] | Anywhere [facility] 03/26/2024 14:51:16 Tdap 5 completed Eulalia brasher [facility] [employer] | Anywhere [facility] 03/26/2024 14:51:30 Pneumococcal conjugate PCV 13 3 completed Eulalia Chandra [facility], [facility] 03/26/2024 14:55:05 pneumococcal polysaccharide PPV23 6 completed Eulalia Chandra null, [facility] 03/26/2024 14:55:34 pneumococcal polysaccharide PPV23 6 completed Eulalia Chandra [facility], [facility] 03/26/2024 14:55:41 influenza, unspecified formulation 2 completed Eulalia Prateek null, [facility] 03/26/2024 14:56:07 influenza, unspecified formulation 3 completed Eulalia Prateek [facility], [facility] 03/26/2024 14:56:17 influenza, unspecified formulation 4 completed Eulaliabirdie Chandra [facility] 03/26/2024 14:56:27 meningococcal ACWY, unspecified formulation 9 completed Eulalia Chandra [facility] 03/26/2024 14:56:54 SARS-COV-2 (COVID-19) vaccine, UNSPECIFIED 1 completed Eulalia Chandra [facility] 03/26/2024 14:57:07 SARS-COV-2 (COVID-19) vaccine, UNSPECIFIED 1 completed Eulalia Prateek [facility] 03/26/2024 14:57:15 SARS-COV-2 (COVID-19) vaccine, UNSPECIFIED 1 completed Eulalia Chandra [facility] 03/26/2024 14:57:24 SARS-COV-2 (COVID-19) vaccine, UNSPECIFIED 2 completed Eulalia Prateek null, [facility] 03/26/2024 14:57:32 SARS-COV-2 (COVID-19) vaccine, UNSPECIFIED 2 completed Eulalia Prateek [facility] 03/26/2024 14:57:40 SARS-COV-2 (COVID-19) vaccine, UNSPECIFIED 3 completed Eulalia Prateek [facility] 03/26/2024 14:57:48 zoster, unspecified formulation 3 completed Eulalia Chandra [facility] 03/26/2024 14:58:02 zoster, unspecified formulation 3 completed Eulalia Chandra [facility] 03/26/2024 14:58:10 Past Encounters Encounter ID Performer Location Encounter Start Date Encounter Closed Date Diagnosis/Indication Diagnosis SNOMED-CT Code Diagnosis ICD10 Code Diagnosis Note [id number] JAVY MABRY NP [address] [address] 03/23/2024 14:38:33 03/25/2024 12:39:17 Alcohol abuse 84873110 F10.10 monitor for any signs of withdrawlf olic 1 mg dailyNaltr exone 60 mg dailyThiam ine 100 mg dailyMag ox 400 mg dailymvi dailyVit C 500 dailyBuspa r 10 mg bidCymbalt a 60 mg dailyWellb utrin 150 mg daily Osteomyelitis 85081670 M 86.9 Doxycyline 100 mg bid to 03/25monit or for any signs of infections [place] wound of skin 18928 58745 01 T14.8XXA Doxycyline 100 mg bid to 03/25monit or for any signs of infections wound consult [place] 591145273 R29.6 PTOT eval and treatfall precaution sfrequent safety checks Atrial fibrillation 4943 6004 I48.91 Diltiazem er 180 mg dailyMetop rolol 25 mg bidmonitor heart rate Essential hypertension 71513097 I10 Diltiazem er 180 mg dailyMetop rolol 25 mg bidmonitor bp Hyperlipidemia 70510746 E78.5 atorvastat in 20 mg daily Type 2 dylon betes mellitus 94813855 E11.9 monitor glucose [id number] Jatin Landis MD [address] [address] 03/25/2024 10:05:56 03/26/2024 13:18:46 Alcohol abuse 05155893 F10.132 see HPIcontinu ed on thiamine and supplement seval by addiction med in hospitalso cial work [facility] need for increased support in community Osteomyelitis 31548503 M 86.052 carrying dx left chronic osteo at [facility] sitestarte d empiricall y on doxy through 03/25repea t cbcID / ortho eval prnmonitor siteupdate ortho with concerns Open wound of skin 13893 40318 01 T14.8XXA see above with chronic infection Atrial fibrillation 4943 6004 I48.0 pradaxa 150 mg bidmetopro lol 25 mg bidmonitor for rate control Essential hypertension 86115326 I10 Diltiazem 180 mg qdlisinopr il 10 mg qdMetoprol ol 25 mg bidmonitor bp and need to titrate Hyperlipidemia 52102225 E78.2 lipitor 20 mg qdcontinue d Type 2 dylon betes mellitus 29600870 E11.9 diet controlled now off metforminm ost recent hba1c wnrmonitor accucheck prn Asthenia 07073962 R53.1 weakness and gait instabilit yPT OT Eval and treatmonit or fall risk and need for increased support in community Marginal z one lymphoma 904474111 C83.07 carrying dx added to PMHlimited informatio n availabler equest prior notes from PCP Benign pro static hyperplasia without outflow obstruction 600799179 N40.0 added to PMHmonitor for retention [id number] Jasmin La NP [address] [address] 03/28/2024 16:08:27 03/29/2024 11:48:40 Alcohol abuse 34403673 F10.132 see HPInaltrex one 50 mg po qdcontinue d on thiamine and supplement seval'd by addiction services in hospitalso cial work to be involved at [facility] nitor need for increased support in community Osteomyelitis 66433836 M 86.052 carrying dx left chronic osteo at [facility] sitecomple nori doxy empiricall y through 03/25ID / ortho eval prnmonitor siteupdate ortho with concerns Open wound of skin 35295 72656 01 T14.8XXA see above with chronic infection Asthenia 63836395 R53.1 weakness and gait instabilit yPT OT Eval and treatmonit or fall risk and need for increased support in community Atrial fibrillation 4943 6004 I48.0 contpradax a 150 mg bidmetopro lol 25 mg bidmonitor for rate control Essential hypertension 84323342 I10 controlled contDiltia zem 180 mg qdlisinopr il 10 mg qdMetoprol ol 25 mg bidmonitor bp and need to titrate Hyperlipidemia 35010923 E78.2 lipitor 20 mg qdcontinue d Type 2 dylon betes mellitus 78220518 E11.9 diet controlled , reportedha d low BS in hospital with possible low BS related to skin conditionn ow off metforminm ost recent hba1c wnrmonitor accucheck prn Marginal z one lymphoma 262556297 C83.07 with hx oflimited informatio n availablef u with oncology 04/05 Atopic dermatitis 261390 01 L20.9 pt with notable scab like [...] cular 04/11 @ 13pm. Rheumatoid arthritis 698 78904 M06.9 he denies arthritis today however has likely underlying arthritisf u with Rheumatoid appt with Dr Hart 07/04 @ [facility]. [id number] Jasmin La NP [address] [address] 04/05/2024 12:48:06 04/09/2024 09:15:27 Atopic dermatitis 24250264 L20.9 pt with notable scab like ulceration [...] changesVas cular 04/11 @ 13pm. Alcohol abuse 74447560 F 10.132 see HPInaltrex one 50 mg po qdcontinue d on thiamine and supplement seval'd by addiction services in hospitalso cial work to be involved at facilitymo nitor need for increased support in community Osteomyelitis 30927692 M 86.052 carrying dx left chronic osteo at [facility] sitecomple nori doxy empiricall y through 03/25ID / ortho eval prnmonitor site for s/s infectionu pdate ortho with concerns Open wound of skin 45350 47687 01 T14.8XXA see above with chronic infection Asthenia 92729017 R53.1 weakness and gait instabilit yPT OT Eval and treatmonit or fall risk and need for increased support in community Atrial fibrillation 4943 6004 I48.0 contpradax a 150 mg bidmetopro lol 25 mg bidmonitor for rate control Essential hypertension 38526076 I10 controlled contDiltia zem 180 mg qdlisinopr il 10 mg qdMetoprol ol 25 mg bidmonitor bp and need to titrate Hyperlipidemia 57434266 E78.2 lipitor 20 mg qdcontinue d Type 2 dylon betes mellitus 30890228 E11.9 diet controlled , reportedha d low BS in hospital with possible low BS related to skin conditionn ow off metforminm ost recent hba1c wnrmonitor accucheck prn Marginal z one lymphoma 102461402 C83.07 with hx oflimited informatio n availablef u with oncology 04/05result s and consult pending Rheumatoid arthritis 698 43502 M06.9 he denies arthritis today however has likely underlying arthritisf u with Rheumatoid appt with Dr Hart 07/04 @ [facility]. [id number] Jasmin La NP [address] [address] 04/12/2024 09:03:45 04/15/2024 16:27:46 Osteomyelitis 71274753 M86.052 resolvedca rrying dx left chronic osteo at [facility] sitecomple nori doxy empiricall y through 03/25ID / ortho eval prnmonitor site for s/s infection outpt with pcpupdate ortho with concerns outpt prn Atopic dermatitis 752506 01 L20.9 mostly resolvedpt with notable scab like ulceration s and peeling of skin in webs of fingers now resolvingc ont triamcinol one 0.5% oint 1 dime size area to affected hands until resolved, will go home with tube for a few more daysmonito r for changes outpt with pcp Alcohol abuse 14682202 F 10.132 see HPInaltrex one 50 mg po qdcontinue d on thiamine and supplement seval'd by addiction services in hospital alreadymon itor need for increased support in community outpt with vna and pcp services in place, also reports a cleaning service helps him Open wound of skin 37587 31187 01 T14.8XXA see above with chronic infection now resolvedfu with wound outpt, wound almost healed Asthenia 82398693 R53.1 seems back to baselinePT OT Eval and treat outpt prnmonitor fall risk and need for increased support in communityv na services in place per director social service Atrial fibrillation 4943 6004 I48.0 contpradax a 150 mg bidmetopro lol 25 mg bidmonitor for rate control outpt with pcp Essential hypertension 01423104 I10 controlled contDiltia zem 180 mg qdlisinopr il 10 mg qdMetoprol ol 25 mg bidmonitor bp and need to titrate outpt with pcp Hyperlipidemia 66743661 E78.2 lipitor 20 mg qdmonitor outpt with pcp Type 2 dylon betes mellitus 83400688 E11.9 diet controlled , reportedno w off metforminm ost recent hba1c wnrBS very stable heremonito r accucheck prn outpt with pcp Marginal z one lymphoma 872430976 C83.07 with hx oflimited informatio n availablef u with oncology prn outptconsu lt note not received here from 04/05 appt Rheumatoid arthritis 698 63520 M06.9 he denies arthritis today however has likely underlying arthritisf u with Rheumatoid appt with Dr Hart 07/04 @ 11am as scheduled Peripheral arterial insufficiency 3034914651 04437 I73.9 with L BKA and osteo healednote [...] Name 04/12/2024 1 [employer] (MEDICARE REPLACEMENT PPO) [id number] Ashley Francis [id number] Ashley Francis Notes Date Note Type Note [...] prep qd to Left BKA. While at [facility]: Ashley has been fu with appointments: Saw [...] and scale resolved. Jasmin La, DAVIDA [address] [facility], [address], [place], [address], [facility] - [facility] [address] 04/12/2024 10:20:27"
== END 2024-05-06 13:56 | disposition home or self-care (01) ==
PROVIDERS: PCP Internal Medicine; Visit Provider Internal Medicine
DX: Z00.00 Encounter for general adult medical examination without abnormal findings (principal); I73.9 Peripheral vascular disease, unspecified; E11.621 Type 2 diabetes mellitus with foot ulcer; L97.509 Non-pressure chronic ulcer of other part of unspecified foot with unspecified severity; E11.42 Type 2 diabetes mellitus with diabetic polyneuropathy; I48.0 Paroxysmal atrial fibrillation; C83.07 Small cell B-cell lymphoma, spleen; F10.20 Alcohol dependence, uncomplicated; Z89.512 Acquired absence of left leg below knee; Z98.890 Other specified postprocedural states; I10 Essential (primary) hypertension

== ENCOUNTER → 2024-05-06 11:32 | Outpatient (BNVA) | payer OTHER, SELFPAY | PROVIDERS: PCP Internal Medicine; Visit Provider Internal Medicine | DX: Z00.00 Encounter for general adult medical examination without abnormal findings (principal); I73.9 Peripheral vascular disease, unspecified; E11.621 Type 2 diabetes mellitus with foot ulcer; L97.509 Non-pressure chronic ulcer of other part of unspecified foot with unspecified severity; E11.42 Type 2 diabetes mellitus with diabetic polyneuropathy; I48.0 Paroxysmal atrial fibrillation; C83.07 Small cell B-cell lymphoma, spleen; I10 Essential (primary) hypertension; F10.20 Alcohol dependence, uncomplicated; Z89.512 Acquired absence of left leg below knee; Z98.890 Other specified postprocedural states | CPT/HCPCS: 96127; 99397 ==

== ENCOUNTER 2024-07-08 12:34 | Inpatient (IN) | payer MEDICARE, SELFPAY ==
--- NOTE | ~2024-07-08 | XR_ITS ---
EXAMINATION: XR TIBIA FIBULA 2 VIEWS RIGHT HISTORY: concern for osteo, pain COMPARISON: There are no prior studies available for comparison. FINDINGS: AP and lateral views of the right tibia and fibula are submitted. Osseous mineralization is normal. There is no fracture or dislocation. The visualized knee and ankle joint spaces are preserved. There are vascular calcifications. XR/XR tibia fibula RT 2V IMPRESSION: Unremarkable examination of the right tibia and fibula. Electronically signed by: Ike Marrero MD 07/08/2024 02:58 PM EDT
[2024-07-08 12:51] VITALS: BP 190/110; PULSE 79; O2SAT 98
--- NOTE | 2024-07-08 13:06 | ED_ITS ---
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 Patient states that he has had [facility] visiting to help him with a right lower leg wound and today they discovered his blood pressure was high. Patient states that he has been taking his medication as directed but his brother visited him last night and caused him to drink a few beers . Patient denies any dizziness, lightheadedness, abdominal pain, nausea, vomiting, fever, chills, blurry vision, double vision, loss of vision, chest pain, difficulty breathing, shortness of breath, back pain, night sweats, pain with urination, increased urinary frequency, increased urinary urgency, blood in his urine or stool, syncope or a near syncopal episode, recent trauma or falls, bowel incontinence, bladder incontinence, or any other complaints at this time. Relieving factors: none Exacerbating factors: none Associated symptoms: denies other symptoms Related Data Home Medications ?Medication ?Instructions ?Recorded ?Confirmed duloxetine 60 mg capsule,delayed 60 mg PO DAILY 12/21/19 05/06/24 release multivitamin 1 tab PO DAILY 02/27/20 05/06/24 allopurinol 100 mg tablet 200 mg PO DAILY 02/08/21 05/06/24 naltrexone 50 mg tablet 50 mg PO DAILY Alcohol Withdrawal 08/24/22 05/06/24 bupropion HCl 150 mg 24 hr tablet, 150 mg PO DAILY 06/01/23 05/06/24 extended release buspirone 10 mg tablet 10 mg PO BID 10/06/23 05/06/24 lisinopril 10 mg tablet 10 mg PO DAILY 12/12/23 05/06/24 sodium phosphates 19 gram-7 118 ml MN DAILY PRN prn 04/05/24 05/06/24 gram/118 mL enema (Fleet Enema) triamcinolone acetonide-l.s.b. 0.5 0.5 appl topical DAILY 04/05/24 05/06/24 % topical cream digoxin 125 mcg (0.125 mg) tablet 125 mcg PO DAILY 07/08/24 metoprolol tartrate 50 mg tablet 50 mg PO BID 07/08/24 naproxen 500 mg tablet 500 mg PO BID 07/08/24 Previous Rx's ?Medication ?Instructions ?Recorded flash glucose sensor (FreeStyle #1 ea 07/14/22 Erika 14 Day Sensor kit) blood pressure test kit-medium #1 ea 08/03/22 commode (bedside commode) #1 ea 09/29/23 wheelchair-16 inch wide with #1 ea 09/29/23 removable footrests magnesium oxide 400 mg (241.3 mg 400 mg PO DAILY #90 tabs 12/13/23 magnesium) tablet atorvastatin 20 mg tablet 20 mg PO BEDTIME 30 days #90 tabs 02/29/24 dabigatran etexilate 150 mg 150 mg PO BID 90 days #180 caps 02/29/24 capsule (Pradaxa) diltiazem HCl 180 mg 180 mg PO DAILY 90 days #90 caps 02/29/24 capsule,extended release 24 hr, controlled ascorbic acid (vitamin C) 500 mg 500 mg PO DAILY #90 tabs 03/05/24 tablet (Vitamin C) folic acid 1 mg tablet 1 mg PO DAILY #90 tabs 03/05/24 thiamine HCl (vitamin B1) 100 mg 100 mg PO DAILY #90 tabs 03/05/24 tablet blood sugar diagnostic (FreeStyle #100 ea 05/03/24 Lite Strips) blood-glucose meter (FreeStyle #1 ea 05/03/24 Lite Meter kit) glucose 4 gram chewable tablet 16 g (4 x 4 gram) PO Q15M PRN 05/03/24 (Dex4 Glucose) hypoglycemia #200 tabs lancets 28 gauge (FreeStyle #100 ea 05/03/24 Lancets) Allergies Allergy/AdvReac Type Severity Reaction Status Date / Time vancomycin [VANCOMYCIN] Allergy Severe ANGIOEDEMA Verified 07/08/24 13:15 Sulfa (Sulfonamide Allergy Intermediate Rash Verified 07/08/24 13:15 Antibiotics) sulfamethoxazole Allergy rash Verified 07/08/24 13:15 [From Bactrim] trimethoprim [From Bactrim] Allergy Rash Verified 07/08/24 13:15 Review of Systems 2 Constitutional: Constitutional: Reports no additional constitutional complaints, Denies chills, Denies fever(s) and Denies night sweats Eyes: Eyes: Reports no additional eye complaints, Denies blurry vision, Denies change in vision, Denies diplopia, Denies eye discharge, Denies loss of vision and Denies eye pain ENT: Denies dizziness Cardiovascular: Cardiovascular: Reports no additional cardiovascular complaints, Denies chest pain, Denies lightheadedness, Denies Loss of Consciousness and Denies dyspnea Respiratory: Respiratory: Reports no additional respiratory complaints and Denies dyspnea Gastrointestinal: Gastrointestinal: Reports no additional gastrointestinal complaints, Denies abdominal pain, Denies melena, Denies hematochezia, Denies change in bowel habits and Denies change in stool character Genitourinary: Genitourinary: Reports no additional male genitourinary complaints, Denies hematuria, Denies oliguria, Denies difficulty urinating, Denies dysuria, Denies urinary frequency, Denies urinary hesitancy, Denies urinary incontinence and Denies urinary urgency Musculoskeletal: Musculoskeletal: Reports no additional musculoskeletal complaints, Denies numbness and Denies tingling Comments: left BKA Neurologic: Denies dizziness, Denies loss of vision, Denies numbness and Denies tingling Psychiatric: Psychiatric: Reports no additional psychiatric complaints Endocrine: Endocrine: Reports no additional endocrine complaints Hematologic/Lymphatic: Hematologic/Lymphatic: Reports no additional hematologic/lymphatic complaints Allergic/Immunologic: Allergic/Immunologic: Reports no additional allergic/immunologic complaints [facility] Past Medical History Attestation statement: The following information was validated with the patient. Source: old records reviewed and nursing notes reviewed Medical History (Updated 07/08/24 @ 16:34 by JOSELIN Cota) Alcohol withdrawal PAF (paroxysmal atrial fibrillation) Weakness Rosacea Annual physical exam Depression Essential hypertension Hyperlipidemia LDL goal <100 Obesity due to excess calories BMI 30.0-30.9,adult ETOH abuse BPH associated with nocturia CAD (coronary artery disease) Long-term current use of intravenous immunoglobulin (IVIG) GERD (gastroesophageal reflux disease) Hypogammaglobulinemia Diabetic eye exam Adjustment disorder Gout Chronic osteomyelitis Splenic marginal zone b-cell lymphoma EMIL (obstructive sleep apnea) Surgical History Status post below-knee amputation of left lower extremity Osteomyelitis Osteomyelitis History of esophagogastroduodenoscopy (EGD) History of colonoscopy History of bunionectomy History of cardiac cath Family History Family History Father Diabetes Mother Liver cancer Maternal Grandfather CVD (cardiovascular disease) Brother Myocardial infarction Social History Social History Household Members: Unknown / Unable to assess Housing: Unknown / Unable to assess Alcohol intake: current Alcohol intake frequency: 3 or more drinks per day Alcohol type: beer Comment: sitter in room / video Patient Tobacco Use Status: Never used Tobacco Smoked in Last 30 Days: No e-Cigarette/Vaping Use: Never Used Second Hand Smoke Exposure: No Use of substances other than those prescribed or required for medical reasons: No Advance Directives: Yes Advance Directives on File: Yes Advance Directives Date on File: 10/10/23 Do you have a plan to hurt others: No Plan service: No Current occupational status: employed 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 Cognitive needs: No Hearing needs: No Vision needs: Yes Physical Exam ED Vital Signs: Vital Signs - 24 hr 07/08/24 13:13 07/08/24 14:59 Temperature 98.9 F 98.4 F Pulse Rate 107 H 99 Respiratory Rate 18 16 Blood Pressure 182/108 H 183/112 H Pulse Oximetry 96 97 Oxygen Delivery Method Room Air Room Air BMI result Body Mass Index 29.8 Const General: cooperative, no acute distress, alert and awake Nutritional Appearance: well nourished Orientation/consciousness: patient oriented x3 Limitations: no limitations HENMT Head: Yes normal to inspection and Yes atraumatic Ears: hearing grossly normal bilaterally and external ears normal General nose exam: Normal external nose present, no nasal discharge noted and no epistaxis Face and sinus: Yes normal facial exam, No abrasion and No laceration Mouth: Normal oral and palatal mucosa present, no drooling and no muffled voice Eyes General: appearance normal, both eyes and all related structures Periorbital: periorbital findings normal Eyelids: Yes eyelids normal Conjunctivae: conjunctivae normal Pupils: Equal, round and reactive pupils present EOM: EOMs intact bilaterally Neck Neck: Yes normal visual inspection, Yes full ROM and Yes no lymphadenopathy Chest Chest palpation & inspection: normal inspection of the chest Resp Effort & Inspection: normal respiratory effort and able to speak in complete sentences GI Inspection: Yes normal to inspection Neuro General: patient oriented x3, moves all extremities and CN's II-XI intact bilaterally Cranial nerves: Yes Equal, round and reactive pupils present Cognition (Neuro): normal cognition Extrem Other: Left BKA Right lower extremity: Psych Appearance: grossly normal Mental Status: mental status grossly normal Affect: normal affect Attitude: cooperative Thought process: Normal thought process present Thought content: Normal thought content present Insight: Good insight present (Psych) Medications Administered Generic Name Dose Route Start Last Admin Trade Name Freq PRN Reason Stop Dose Admin Magnesium Sulfate 2 gm in 50 mls @ 25 mls/hr 07/08/24 14:30 07/08/24 15:50 Magnesium Sulfate/H2o IV 07/08/24 16:29 25 mls/hr ONCE ONE Administration Sodium Chloride 3 ml 07/08/24 16:00 07/08/24 16:20 0.9 % Sodium Chloride Flush 3 Ml Syringe IVFLUSH Not Given QSHIFT MADDY Discontinued Medications Generic Name Dose Route Start Last Admin Trade Name Freq PRN Reason Stop Dose Admin Doxycycline Monohydrate 100 mg 07/08/24 14:30 07/08/24 14:55 Doxycycline Monohydrate 100 Mg Capsule PO 07/08/24 14:31 100 mg ONCE ONE Administration Piperacillin Sod/Tazobactam 50 mls @ 100 mls/hr 07/08/24 14:30 07/08/24 15:26 Sod 3.375 gm/ Sodium Chloride IV 07/08/24 14:59 Infused ONCE ONE Infusion Lorazepam 1 mg 07/08/24 15:01 07/08/24 15:04 Lorazepam 1 Mg Tablet PO 07/08/24 15:02 1 mg ONCE ONE Administration Metoprolol Tartrate 12.5 mg 07/08/24 13:15 07/08/24 13:24 Metoprolol Tartrate 12.5 Mg Halftab PO 07/08/24 13:16 12.5 mg ONCE ONE Administration Protocol Phenobarbital Sodium 310 mg 07/08/24 15:15 07/08/24 15:51 Phenobarbital Sodium 130 Mg/Ml Im Once IM 07/08/24 15:16 310 mg ONCE ONE Administration Medical Decision Making Medical Decision Making MDM Narrative: Patient is a 69 year old assigned male at with a history of left [id number]-[id number]-[id number] amputation, depression, HTN, HLD, DM, alcohol use disorder, CAD, GERD, paroxysmal atrial fib, and 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 Patient's physical exam was as noted in the physical exam portion of this note. Patient's blood work showed an elevated WBC count of 14, lactic acid of 2.7, mag of 1.4, and ethanol of 15. Patient's EKG showed atrial fib which is consistent with the patient's history. Patient's right tib fib x-ray showed no acute process. Patient given IV Zosyn, PO Doxycycline, IV magnesium, and IM phenobarb. Patient's clinical presentation is most consistent with hypomagnesemia, alcohol abuse, alcohol withdrawal, and right lower leg cellulitis. I spoke to the hospitalist team who agreed to admission. Patient's clinical presentation is not consistent with sepsis (@1530). I explained my physical exam findings as well as all test results to the patient. I answered all questions asked by the patient. Patient verbalized agreement and understanding with this treatment plan and admission. Differential Diagnosis Differential Diagnoses: The differential diagnosis associated with the presentation includes Cellulitis Alcohol withdrawal Alcohol abuse / use Hypomagnesemia Admission/Observation Consideration of admission/observation: Escalation of care including admission/observation considered Patient admitted as noted in the MDM Rationale portion of this note. Consult Healthcare Provider Management of the patient was discussed with: Hospitalist (agreed to admission as noted in the MDM Rationale portion of this note. ) Lab Data [facility] Lab Attestation statement: I reviewed the patient's lab results. My interpretation of these results are in the MDM Rationale portion of this note. 07/08/24 13:58 07/08/24 13:58 Labs: Lab Results 07/08/24 07/08/24 Range/Units 13:58 13:59 WBC 14.0 H (4.8-10.8) X10*3/uL RBC 4.45 L (4.60-5.80) X10*6/uL Hgb 14.4 (14.0-18.0) g/dl Hct 42.5 (42.0-52.0) % MCV 95.5 (80.0-98.0) fL MCH 32.4 (27.0-33.0) pg MCHC 33.9 (31.0-36.0) g/dl RDW 15.6 (11.0-16.0) % Plt Count 375 (160-400) X10*3/uL MPV 9.8 (9.4-12.4) fL Immature Gran % (Auto) 0.5 H (0.0-0.4) % Neut % (Auto) 80.9 H (45-73) % Lymph % (Auto) 9.4 L (20-40) % Deuel % (Auto) 6.7 (2-11) % Eos % (Auto) 1.5 (0-4) % Baso % (Auto) 1.0 (0-2) % Lymph # (Auto) 1.3 (1.2-4.9) X10*3/uL Deuel # (Auto) 0.9 (0.1-1.2) X10*3/uL Eos # (Auto) 0.2 (0.0-0.4) X10*3/uL Baso # (Auto) 0.1 (0.0-0.2) X10*3/uL Abs Immat Gran (auto) 0.07 H (0.00-0.03) X10*3/uL Absolute Neuts (auto) 11.3 H (2.0-8.3) x10*3/uL Absolute Nucleated RBC 0.000 (0.0-0.012) X10*3/uL Nucleated RBC % (auto) 0.0 (0.0-0.2) /100WBC ESR 7 (0-15) MM/HR Sodium 139 (135-145) mmol/L Potassium 4.7 (3.3-5.1) mmol/L Chloride 106 (96-108) mmol/L Carbon Dioxide 22 (22-29) mmol/L Anion Gap 16 (12-20) BUN 11 (9-16) mg/dL Creatinine 0.81 (0.5-1.4) mg/dL Estim Creat Clear Calc 108.2 Estimated GFR > 60 Random Glucose 115 (60-115) mg/dL Lactic Acid 2.7 H* (0.5-2.0) mmol/L Calcium 8.8 (8.4-10.2) mg/dL Magnesium 1.4 L* (1.6-2.6) mg/dL Total Bilirubin 0.5 (0.0-1.0) mg/dL AST 35 (5-37) U/L ALT 17 (0-40) U/L Alkaline Phosphatase 167 H (39-117) U/L Troponin I High Sens 8.9 (<3.5-35.0) ng/L C-Reactive Protein 0.47 (< or = 0.50) mg/dL Total Protein 6.6 (6.5-8.0) g/dL Albumin 3.9 (3.5-5.0) g/dL Ethyl Alcohol 15 mg/dL Independent Interpretation I performed an independent interpretation of an: EKG and Plain X-Ray Interpretation: My interpretation is in agreement with the radiologist's impression of this imaging study. L EXAMINATION: XR TIBIA FIBULA 2 VIEWS RIGHT HISTORY: concern for osteo, pain COMPARISON: There are no prior studies available for comparison. FINDINGS: AP and lateral views of the right tibia and fibula are submitted. Osseous mineralization is normal. There is no fracture or dislocation. The visualized knee and ankle joint spaces are preserved. There are vascular calcifications. XR/XR tibia fibula RT 2V IMPRESSION: Unremarkable examination of the right tibia and fibula. Electronically signed by: Ike Marrero MD 07/08/2024 02:58 PM EDT Dictated By: Ike Marrero MD Signed By: Electronically signed by Ike Marrero MD 07/08/24 1458 I independently interpreted this EKG and am in agreement with the below findings: Vent. Rate: 94 BPM Atrial Rate: * BPM P-R Int: * ms QRS Dur: 80 ms QT Int: 356 ms P-R-T Axes: * -28 35 degrees QTcB Int: 445 ms Atrial fibrillation with premature ventricular or aberrantly conducted complexes Anteroseptal infarct (cited on or before 07-Dec-2015) When compared with ECG of 21-Mar-2024 11:04, Vent. rate has increased by 48 bpm Nonspecific T wave abnormality no longer evident in Inferior leads QT has lengthened DD/ 1329 Radiology Impression Discussion of test interpretation with radiology: I have reviewed the radiologist's reading. Independent Historian Clinical information obtained from an independent historian. History obtained from or confirmed by: EMS (EMS provided additional history and confirmed the history provided by the patient. ) Critical Care Time Critical Care Time Critical Care Time: Yes Total Critical Care Time: 48 Attestation: I spent 48 minutes of Critical Care Time with this patient. This does not include time spent on separately reported billable procedures. Discharge Plan Discharge Clinical Impression: Hypomagnesemia, Alcohol withdrawal, Cellulitis Patient Disposition: Admitted As Inpatient
--- NOTE | 2024-07-08 13:09 | ECG_ITS ---
Test Reason : HYPERTESION Blood Pressure : */* mmHG Vent. Rate : 94 BPM Atrial Rate : * BPM P-R Int : * ms QRS Dur : 80 ms QT Int : 356 ms P-R-T Axes : * -28 35 degrees QTcB Int : 445 ms Atrial fibrillation with premature ventricular or aberrantly conducted complexes Anteroseptal infarct (cited on or before 07-Dec-2015) Abnormal ECG When compared with ECG of 21-Mar-2024 11:04, Vent. rate has increased by 48 bpm Nonspecific T wave abnormality no longer evident in Inferior leads QT has lengthened Referred By: Jennifer Alcantar Electronically Signed By: ELSA RAE MD
[2024-07-08 13:13] VITALS: BP 182/108; PULSE 107; RESP 18; TEMP 37.2; O2SAT 96; BMI 29.8
[2024-07-08] MEDS: Metoprolol Tartrate 12.5 MG HALFTAB PO (13:24)
--- NOTE | 2024-07-08 13:40 | PC.NURSE ---
pt a&x3, ekg performed, rn cardiac applied, RLE dressings changed- wet to dry dressings applied- pictures sent to provider, labs drawn, pt currently denying pain/discomfort plan of care ongoing
[2024-07-08 14:04] LABS: MANUAL DIFF FLAG NO
[2024-07-08 14:06] LABS: Basophils Absolute Auto 0.1 X10*3/uL (0.0-0.2); Eosinophils Absolute Auto 0.2 X10*3/uL (0.0-0.4); Eosinophils Percent Auto 1.5 % (0-4); Hematocrit 42.5 % (42.0-52.0); Hemoglobin 14.4 g/dl (14.0-18.0); Imm Gran Abs Auto 0.07 X10*3/uL (0.00-0.03); Imm Gran Pct Auto 0.5 % (0.0-0.4); Lymphocytes Absolute Auto 1.3 X10*3/uL (1.2-4.9); Lymphocytes Percent Auto 9.4 % (20-40); Mean Corpuscular HGB Conc 33.9 g/dl (31.0-36.0); Mean Corpuscular Hemoglobin 32.4 pg (27.0-33.0); Mean Corpuscular Volume 95.5 fL (80.0-98.0); Mean Platelet Volume 9.8 fL (9.4-12.4); Monocytes Absolute Auto 0.9 X10*3/uL (0.1-1.2); Monocytes Percent Auto 6.7 % (2-11); Neutrophils Absolute Auto 11.3 x10*3/uL (2.0-8.3); Neutrophils Percent Auto 80.9 % (45-73); Platelet Count 375 X10*3/uL (160-400); Red Blood Count 4.45 X10*6/uL (4.60-5.80); Red Cell Distribution Width 15.6 % (11.0-16.0)
[2024-07-08 14:18] LABS: Ethanol 15 mg/dL
[2024-07-08 14:19] LABS: C Reactive Protein 0.47 mg/dL (< or = 0.50)
[2024-07-08 14:28] LABS: Troponin-I High Sensitivity 8.9 ng/L (<3.5-35.0)
[2024-07-08 14:29] LABS: Alanine Aminotransferase 17 U/L (0-40); Albumin Level 3.9 g/dL (3.5-5.0); Alkaline Phosphatase 167 U/L (39-117); Anion Gap 16 (12-20); Aspartate Amino Transferase 35 U/L (5-37); Bilirubin Total 0.5 mg/dL (0.0-1.0); Blood Urea Nitrogen 11 mg/dL (9-16); Calcium 8.8 mg/dL (8.4-10.2); Carbon Dioxide 22 mmol/L (22-29); Chloride 106 mmol/L (96-108); Creatinine Clr Calc Pharmacy 108.2; Estimated Glomerular Filt Rate > 60; Glucose Random 115 mg/dL (60-115); Potassium 4.7 mmol/L (3.3-5.1); Sodium 139 mmol/L (135-145); Total Protein 6.6 g/dL (6.5-8.0)
[2024-07-08 14:30] LABS: Lactic Acid 2.7 mmol/L (0.5-2.0)
[2024-07-08 14:30] LABS: Magnesium 1.4 mg/dL (1.6-2.6)
--- NOTE | 2024-07-08 14:45 | PC.NURSE ---
per ED provider pt is not being considered as sepsis protocol.
[2024-07-08 14:51] LABS: Erythrocyte Sedimentation Rate 7 MM/HR (0-15)
[2024-07-08] MEDS: Doxycycline Monohydrate 100 MG CAPSULE PO (14:55)
[2024-07-08] MEDS: Piperacillin Sodium/Tazobactam 3.375 GM in 0.9 % Sodium Chloride 50 ML IV (14:56)
[2024-07-08 14:59] VITALS: BP 183/112; PULSE 99; RESP 16; TEMP 36.9; O2SAT 97
[2024-07-08] MEDS: LORazepam 1 MG TABLET PO (15:04)
[2024-07-08] MEDS: Magnesium Sulfate/H2O 2 GM/50 ML PIGGYBACK IV (15:50)
[2024-07-08] MEDS: PHENobarbitaL sodium 130 MG/ML IM ONCE 310 MG IM (15:51)
--- NOTE | 2024-07-08 15:54 | P.HPHOSP_ITS ---
History of Present Illness Date of Service: 07/08/24 Attending physician on admission: Juve Hernandez Chief Complaint: leg infection 69-year-old male with history of CAD, persistent atrial fibrillation on Pradaxa, chronic osteomyelitis of the left lower extremity s/p left BKA, hypertension, hyperlipidemia, alcohol use disorder, a splenic marginal zone lymphoma s/p appendectomy, gout, BPH, mood disorder and iab-xeadspv-odmaowimd type 2 diabetes presented to the ED earlier today due to elevated blood pressure reported by home health aide. He has assistance from health aide/VNA to assist with right lower extremity wounds which are chronic and noted his blood pressure was elevated. He reports compliance with his medications but he has been consuming alcohol on a regular basis. He does state that at 1 point he was drinking 1.75 L of alcohol and has cut back to 6 pack of beers and several nips, last consumed around 21:00 last night. He states the right lower extremity has been painful and has been oozing. As a result of the oozing, his dressing is often soaked through. He reports he does follow with N and is on naltrexone but does not feel like this is enough. He also falls with several support groups. He denies any other substance use and does not smoke any cigarettes. He denies any fevers, chills. Review of Systems 2 Review of Systems: Yes all other systems are reviewed and are negative [facility] Medical History (Updated 07/08/24 @ 16:17 by JOSELIN Kowalski) Alcohol withdrawal PAF (paroxysmal atrial fibrillation) Weakness Rosacea Annual physical exam Depression Essential hypertension Hyperlipidemia LDL goal <100 Obesity due to excess calories BMI 30.0-30.9,adult ETOH abuse BPH associated with nocturia CAD (coronary artery disease) Long-term current use of intravenous immunoglobulin (IVIG) GERD (gastroesophageal reflux disease) Hypogammaglobulinemia Diabetic eye exam Adjustment disorder Gout Chronic osteomyelitis Splenic marginal zone b-cell lymphoma EMIL (obstructive sleep apnea) Family History Father Diabetes Mother Liver cancer Maternal Grandfather CVD (cardiovascular disease) Brother Myocardial infarction Surgical History Status post below-knee amputation of left lower extremity Osteomyelitis Osteomyelitis History of esophagogastroduodenoscopy (EGD) History of colonoscopy History of bunionectomy History of cardiac cath Social History Household Members: Unknown / Unable to assess Housing: Unknown / Unable to assess Alcohol intake: current Alcohol intake frequency: 3 or more drinks per day Alcohol type: beer Comment: sitter in room / video Patient Tobacco Use Status: Never used Tobacco Smoked in Last 30 Days: No e-Cigarette/Vaping Use: Never Used Second Hand Smoke Exposure: No Use of substances other than those prescribed or required for medical reasons: No Advance Directives: Yes Advance Directives on File: Yes Advance Directives Date on File: 10/10/23 Do you have a plan to hurt others: No Plan service: No Current occupational status: employed 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 Cognitive needs: No Hearing needs: No Vision needs: Yes Meds Allergies Allergy/AdvReac Type Severity Reaction Status Date / Time vancomycin [VANCOMYCIN] Allergy Severe ANGIOEDEMA Verified 07/08/24 13:15 Sulfa (Sulfonamide Allergy Intermediate Rash Verified 07/08/24 13:15 Antibiotics) sulfamethoxazole Allergy rash Verified 07/08/24 13:15 [From Bactrim] trimethoprim [From Bactrim] Allergy Rash Verified 07/08/24 13:15 Active Medications: Current Medications Magnesium Sulfate (Magnesium Sulfate/H2o) 2 gm in 50 mls @ 25 mls/hr IV ONCE ONE Stop: 07/08/24 16:29 Last Admin: 07/08/24 15:50 Dose: 25 mls/hr Pharmacy Consult (Consult Rx Etoh Phenob Im/Po) 1 each MISCELLANE ONCE PRN; Protocol PRN Reason: Consult order Phenobarbital (Phenobarbital 30 Mg Tablet) 60 mg PO BID [facility] Stop: 07/10/24 21:01 Phenobarbital (Phenobarbital 30 Mg Tablet) 30 mg PO BID [facility] Stop: 07/12/24 21:01 Phenobarbital (Phenobarbital 30 Mg Tablet) 30 mg PO DAILY [facility] Stop: 07/14/24 09:01 Phenobarbital Sodium (Phenobarbital Sodium 130 Mg/Ml Vial Im Q3hx2) 233 mg IM Q3H MADDY Stop: 07/08/24 21:16 Sodium Chloride (0.9 % Sodium Chloride Flush 3 Ml Syringe) 3 ml IVFLUSH QSHIFT [facility] Home Medications ?Medication ?Instructions ?Recorded ?Confirmed ?Last Taken ?Type duloxetine 60 mg capsule,delayed 60 mg PO DAILY 12/21/19 05/06/24 03/15/24 History release multivitamin 1 tab PO DAILY 02/27/20 05/06/24 03/15/24 History allopurinol 100 mg tablet 200 mg PO DAILY 02/08/21 05/06/24 03/15/24 History naltrexone 50 mg tablet 50 mg PO DAILY Alcohol Withdrawal 08/24/22 05/06/24 03/15/24 History bupropion HCl 150 mg 24 hr tablet, 150 mg PO DAILY 06/01/23 05/06/24 03/15/24 History extended release buspirone 10 mg tablet 10 mg PO BID 10/06/23 05/06/24 03/15/24 History lisinopril 10 mg tablet 10 mg PO DAILY 12/12/23 05/06/24 03/15/24 History sodium phosphates 19 gram-7 118 ml MT DAILY PRN prn 04/05/24 05/06/24 Unknown History gram/118 mL enema (Fleet Enema) triamcinolone acetonide-l.s.b. 0.5 0.5 appl topical DAILY 04/05/24 05/06/24 Unknown History % topical cream digoxin 125 mcg (0.125 mg) tablet 125 mcg PO DAILY 07/08/24 Unknown History metoprolol tartrate 50 mg tablet 50 mg PO BID 07/08/24 Unknown History naproxen 500 mg tablet 500 mg PO BID 07/08/24 Unknown History Physical Exam 2 Vital Signs and Narrative: Vital Signs: Last Vital Signs Temp 98.4 F 07/08/24 14:59 Pulse 99 07/08/24 14:59 Resp 16 07/08/24 14:59 BP 183/112 H 07/08/24 14:59 Pulse Ox 97 07/08/24 14:59 O2 Del Method Room Air 07/08/24 14:59 BMI result Body Mass Index 29.8 Constitutional - Awake and Alert, No apparent distress Eyes - PERRLA, EOMI Cardiovascular - S1S2, RRR, No edema Respiratory - Normal lung expansion, Normal respiratory effort, No respiratory distress, CTA bilaterally Extremities - no calf tenderness bilaterally, no swelling Skin - Warm/Dry. erythema of the cheeks bilaterally. Erythema and warmth of the anterior aspect of the right lower leg with scattered venous ulcerations and several with serous drainage. There is maceration of the plantar surface of the right foot and an abrasion of the lateral aspect of the right great toe Neurological - Alert & oriented x3, bilateral hand tremors at rest Psychological - Appropriate affect Results Labs 07/08/24 13:58 07/08/24 13:58 Labs: Laboratory Results - last 24 hr 07/08/24 07/08/24 13:58 13:59 MCV 95.5 MCH 32.4 MCHC 33.9 RDW 15.6 Plt Count 375 MPV 9.8 Immature Gran % (Auto) 0.5 H Neut % (Auto) 80.9 H Lymph % (Auto) 9.4 L O'Brien % (Auto) 6.7 Eos % (Auto) 1.5 Baso % (Auto) 1.0 Lymph # (Auto) 1.3 O'Brien # (Auto) 0.9 Eos # (Auto) 0.2 Baso # (Auto) 0.1 Abs Immat Gran (auto) 0.07 H Absolute Neuts (auto) 11.3 H Absolute Nucleated RBC 0.000 Nucleated RBC % (auto) 0.0 ESR 7 Anion Gap 16 Estim Creat Clear Calc 108.2 Estimated GFR > 60 Random Glucose 115 Lactic Acid 2.7 H* Calcium 8.8 Magnesium 1.4 L* Total Bilirubin 0.5 AST 35 ALT 17 Alkaline Phosphatase 167 H C-Reactive Protein 0.47 Total Protein 6.6 Albumin 3.9 Ethyl Alcohol 15 Imaging Radiologist's Impressions: Impressions Tibia/Fibula X-Ray 07/08/24 13:29 IMPRESSION: Unremarkable examination of the right tibia and fibula. Electronically signed by: Ike Marrero MD 07/08/2024 02:58 PM EDT RP Assessment and Plan (1) Cellulitis of right lower extremity: Status: Acute (2) Venous stasis ulcers: Status: Acute (3) Alcohol withdrawal: Qualifiers: Complication of substance-induced condition: with delirium Qualified Code(s): F10.931 - Alcohol use, unspecified with withdrawal delirium Status: Acute Plan 69-year-old male with history of CAD, persistent atrial fibrillation on Pradaxa, chronic osteomyelitis of the left lower extremity s/p left BKA, hypertension, hyperlipidemia, alcohol use disorder, a splenic marginal zone lymphoma s/p appendectomy, gout, BPH, mood disorder and cso-qcnztlh-kqjaoxnhn type 2 diabetes admitted for further managemnet of acute RLE cellulitis and alcohol withdrawal. Acute right lower extremity cellulitis Hemoglobin A1c pending Leukocytosis 14.5 tachycardia related to acute alcohol withdrawal not sepsis. There is no severe sepsis on admission 07/08 1605 IV vancomycin and Zosyn (07/08) Pain management p.r.n. Follow CBC, cultures Acute alcohol withdrawal Ethyl alcohol on admission 15 Monitor on CIWA Phenobarbital per protocol IV thiamine, folic acid Addiction medicine consult Suspected starvation ketosis hasnt been eating and drinking except alcohol IV fluids Elevated lactic acid In setting of hypoperfusion/hypovolemia from starvation ketosis IV fluids Acute hypomagnesemia Due to alcohol use Repleted in the ED, follow lytes Chronic venous stasis dermatitis with venous ulcerations Wound care consult Plan as above Ujw-jtzvhaj-mutesgmrt type 2 diabetes POC glucose, diabetic diet SSI EMIL Noncompliant with CPAP Gout Allopurinol Hypertension Continue antihypertensives DVT prophylaxis-Pradaxa Full code Patient requires inpatient stay at least 2 midnights for management of extensive cellulitis of the right lower leg in diabetic requiring broad-spectrum antibiotics who is currently in acute alcohol withdrawal and will require phenobarbital per protocol as well as close monitoring for worsening withdrawal symptoms on CIWA Quality Stroke Does the patient have a stroke diagnosis?: No VTE Prior VTE?: No VTE Risk Level:: Medical - moderate - high VTE Device Contraindication: Treatment Not Indicated VTE Drug Contraindication: N/A - Med Ordered
[2024-07-08 16:02] LABS: Reflex Lactate? Lactic Acid Added
--- OUTSIDE RECORDS SUMMARY | 2024-07-08 16:16 | XMS_ITS | Encounter Summary ---
Author Organization [employer] Address [address] [place] [address] Care Team Providers Care Pbx Inspector Name Role Phone Jatin Landis MD Primary Care Provider [phone] Encounter Details Date Type Department Care Team (Late st Contact Info) Description 03/25/2024 Lab Requisition [facility] - Main Lab [address] [facility] [place] [address] Jatin Landis MD [address] [place] [address] [address] [place], [phone] Chronic kidney disease, unspecified; Local infection [...] auto differential (03/25/2024 5:17 AM EST) [facility] WBC 7.3 4.8 - 10.8 K/mcL [...] 03/25/2024 9:28 AM [facility] Basophils Relative 1.4 % LAB [...] 03/25/2024 9:28 AM [facility] Basophils Absolute 0.10 0.00 - [...] ORDERABLES Final Resul t Performing Organization Address [facility]/ZIP Co de Phone Number [facility] [address] [place] [address], [place] [phone] * (ABNORMAL) C-reactive protein (03/25/2024 5:17 AM EST) Pathologist [facility] C-Reactive Protein 1.04(H) <=0.50 mg/dL LAB CHEMISTRY METHOD 03/25/2024 9:46 AM [facility] Blood Venous blood specimen / Unknown Venipuncture / Unknown 03/25/2024 5:17 AM EST 03/25/2024 9:03 AM EST Jatin Landis MD LAB BLOOD ORDERABLES Final Resul t Performing Organization Address [facility]/ZIP Co de Phone Number [facility] [address] [place] [address], [place] [phone] * (ABNORMAL) Comprehensive metabolic panel (03/25/2024 5:17 AM EST) Pathologist [facility] Sodium 141 133 - 145 mmol/L LAB CHEMISTRY METHOD 03/25/2024 9:46 AM [facility] Potassium 4.2 3.5 - 5.5 mmol/L LAB CHEMISTRY METHOD 03/25/2024 9:46 AM [facility] Chloride 106 96 - 110 mmol/L LAB CHEMISTRY METHOD 03/25/2024 9:46 AM [facility] CO2 27 21 - 32 mmol/L LAB CHEMISTRY METHOD 03/25/2024 9:46 AM [facility] Anion Gap 8 3 - 11 LAB CHEMISTRY METHOD 03/25/2024 9:46 AM [facility] Glucose 77 70 - 100 mg/dL LAB CHEMISTRY METHOD 03/25/2024 9:46 AM [facility] BUN 17 5 - 25 mg/dL LAB CHEMISTRY METHOD 03/25/2024 9:46 AM [facility] Creatinine 0.76 0.70 - 1.30 mg/dL LAB CHEMISTRY METHOD 03/25/2024 9:46 AM [facility] eGFR 99 >=60 mL/min/1. 73m2 LAB CHEMISTRY METHOD 03/25/2024 9:46 AM [facility] Comment:Calculation based on the??Chronic Kidney Disease Epidemiology Collaboration (CKD-EPI) equation refit??without adjustment for race. BUN/Creatinine Ratio 22.4 LAB CHEMISTRY METHOD 03/25/2024 9:46 AM [facility] Calcium 9.0 8.5 - 10.5 mg/dL LAB CHEMISTRY METHOD 03/25/2024 9:46 AM [facility] AST (SGOT) 24 10 - 42 unit/L LAB CHEMISTRY METHOD 03/25/2024 9:46 AM [facility] ALT (SGPT) 20 10 - 60 unit/L LAB CHEMISTRY METHOD 03/25/2024 9:46 AM [facility] Alkaline Phosphatase 176(H) 42 - 121 unit/L LAB CHEMISTRY METHOD 03/25/2024 9:46 AM [facility] Total Protein 5.7(L) 6.0 - 8.0 g/dL LAB CHEMISTRY METHOD 03/25/2024 9:46 AM [facility] Albumin 3.3 3.2 - 5.0 g/dL LAB CHEMISTRY METHOD 03/25/2024 9:46 AM [facility] Total Bilirubin 0.3 0.0 - 1.4 mg/dL LAB CHEMISTRY METHOD 03/25/2024 9:46 AM [facility] Blood Venous blood specimen / Unknown Venipuncture / Unknown 03/25/2024 5:17 AM EST 03/25/2024 9:03 AM EST Jatin Landis MD LAB BLOOD ORDERABLES Final Resul t [facility] [address] [place] [address], documented in this encounter Visit Diagnoses Diagnosis Chronic kidney disease, unspecified Local infection of the skin and subcutaneous tissue, unspecified documented in this encounter Care Teams Pbx Inspector Relationship Specialty Start Date End Date Jatin Landis MD [address] [place] [address], [phone] PCP - General Family Medicine 03/25/24 documented as of this encounter
--- OUTSIDE RECORDS SUMMARY | 2024-07-08 16:16 | XMS_ITS | Encounter Summary ---
Author Organization [employer] Address [address] [place] [address] Care Team Providers Care Piece Worker Name Role Phone Jatin Landis MD Primary Care Provider [phone] Encounter Details Date Type Department Care Team (Late st Contact Info) Description 04/08/2024 Lab Requisition [facility] - Main Lab [address] [facility] [place] [address] Jatin Landis MD [address] [place] [address], [phone] Non-pressure chronic ulcer of unspecified part of left lower leg with unspecified severity (CMS/HCC V24, CMS/HCC V28); Infection of amputation stump, left lower extremity (CMS/HCC V24, CMS/HCC V28); Other toxic encephalopathy Social History Tobacco Use [...] MD LAB BLOOD ORDERABLES Final Resul t [facility] [address] [place] [address], [place] [phone] * (ABNORMAL) Comprehensive metabolic panel (04/08/2024 4:52 AM EST) Pathologist [facility] Sodium 141 133 - 145 mmol/L LAB CHEMISTRY METHOD 04/08/2024 11:16 AM [facility] Potassium 4.5 3.5 - 5.5 mmol/L LAB CHEMISTRY METHOD 04/08/2024 11:16 AM [facility] Chloride 108 96 - 110 mmol/L LAB CHEMISTRY METHOD 04/08/2024 11:16 AM [facility] CO2 25 21 - 32 mmol/L LAB CHEMISTRY METHOD 04/08/2024 11:16 AM [facility] Anion Gap 8 3 - 11 LAB CHEMISTRY METHOD 04/08/2024 11:16 AM [facility] Glucose 98 70 - 100 mg/dL LAB CHEMISTRY METHOD 04/08/2024 11:16 AM [facility] BUN 15 5 - 25 mg/dL LAB CHEMISTRY METHOD 04/08/2024 11:16 AM [facility] Creatinine 0.73 0.70 - 1.30 mg/dL LAB CHEMISTRY METHOD 04/08/2024 11:16 AM [facility] eGFR 100 >=60 mL/min/1. 73m2 LAB CHEMISTRY METHOD 04/08/2024 11:16 AM [facility] Comment:Calculation based on the??Chronic Kidney Disease Epidemiology Collaboration (CKD-EPI) equation refit??without adjustment for race. BUN/Creatinine Ratio 20.5 LAB CHEMISTRY METHOD 04/08/2024 11:16 AM [facility] Calcium 9.0 8.5 - 10.5 mg/dL LAB CHEMISTRY METHOD 04/08/2024 11:16 AM [facility] AST (SGOT) 24 10 - 42 unit/L LAB CHEMISTRY METHOD 04/08/2024 11:16 AM [facility] ALT (SGPT) 39 10 - 60 unit/L LAB CHEMISTRY METHOD 04/08/2024 11:16 AM [facility] Comment:Results verified by repeat testing Alkaline Phosphatase 138(H) 42 - 121 unit/L LAB CHEMISTRY METHOD 04/08/2024 11:16 AM [facility] Total Protein 6.1 6.0 - 8.0 g/dL LAB CHEMISTRY METHOD 04/08/2024 11:16 AM [facility] Albumin 3.5 3.2 - 5.0 g/dL LAB CHEMISTRY METHOD 04/08/2024 11:16 AM [facility] Total Bilirubin 0.3 0.0 - 1.4 mg/dL LAB CHEMISTRY METHOD 04/08/2024 11:16 AM [facility] Blood Venous blood specimen / Unknown Venipuncture / Unknown 04/08/2024 4:52 AM EST 04/08/2024 9:04 AM EST us Jatin Landis MD LAB BLOOD ORDERABLES Final Resul t [facility] [address] [place] [address], * (ABNORMAL) Complete blood count (04/08/2024 4:52 AM EST) WBC 5.7 4.8 - 10.8 K/mcL LAB HEMETOLOGY METHOD 04/08/2024 10:00 AM [facility] RBC 4.20(L) 4.50 - 5.50 M/mcL LAB HEMETOLOGY METHOD 04/08/2024 10:00 AM [facility] Hemoglobin 14.2 13.5 - 17.5 g/dL LAB HEMETOLOGY METHOD 04/08/2024 10:00 AM [facility] Hematocrit 42.2 42.0 - 54.0 % LAB HEMETOLOGY METHOD 04/08/2024 10:00 AM [facility] MCV 100.5(H) 79.0 - 98.0 FL LAB HEMETOLOGY METHOD 04/08/2024 10:00 AM [facility] MCH 33.8(H) 27.0 - 32.0 pcg LAB HEMETOLOGY METHOD 04/08/2024 10:00 AM [facility] MCHC 33.6 32.0 - 37.0 g/dL LAB HEMETOLOGY METHOD 04/08/2024 10:00 AM [facility] RDW 13.3 11.0 - 15.0 % LAB HEMETOLOGY METHOD 04/08/2024 10:00 AM [facility] Platelets 330 130 - 400 K/mcL LAB HEMETOLOGY METHOD 04/08/2024 10:00 AM [facility] MPV 10.8 7.0 - 11.0 FL LAB HEMETOLOGY METHOD 04/08/2024 10:00 AM [facility] NRBC 0.0 <1.0 % LAB HEMETOLOGY METHOD 04/08/2024 10:00 AM EST [facility] NRBC Absolute 0.00 <0.10 K/mcL LAB HEMETOLOGY METHOD 04/08/2024 10:00 AM EST [facility] Blood Venous blood specimen / Unknown Venipuncture / Unknown 04/08/2024 4:52 AM EST 04/08/2024 9:04 AM EST us Jatin Landis MD LAB BLOOD ORDERABLES Final Resul t [facility]) [facility] [address] [place] [address], documented in this encounter Visit Diagnoses Diagnosis Non-pressure chronic ulcer of unspecified part of left lower leg with unspecified severity (CMS/HCC V24, CMS/HCC V28) Infection of amputation stump, left lower extremity (CMS/HCC V24, CMS/HCC V28) Other toxic encephalopathy documented in this encounter Care Teams Piece Worker Relationship Specialty Start Date End Date Jatin Landis MD [address] [place] [address], [phone] PCP - General Family Medicine 03/25/24 documented as of this encounter
--- OUTSIDE RECORDS SUMMARY | 2024-07-08 16:16 | XMS_ITS | Data Portability ---
Author Organization [facility], Main Office Address [address], [address] [place] [address] Care Team Providers Care Machinist Instructor Name Role Phone DONOVAN DONATO - 2ND [...] Organization Details Recorded Time Atrial fibrillatio n 13943266 Active 2023 JAVY MABRY NP [address], [address], [place], [address], [facility] 4 14:46:48 Osteomyelit is 76960447 Active 2023 JAVY MABRY NP [address], [address], [place], [address], [facility] 4 14:46:56 Open wound of skin 721351482539 Active 2023 JOSH MABRY NP [address], [address], [place], [address], [facility] 4 14:47:21 Essential hypertensio n 35771705 Active 2023 JAVY MABRY, DAVIDA [address], [address], [place], [address], [facility] 4 14:47:31 Hyperlipide pablo 28010427 Active 2023 JAVY MABRY NP [address], [address], [place], [address], [facility] 4 14:47:35 Alcohol abuse 15554108 Active 2023 JAVY MABRY NP [address], [address], [place], [address], [facility] 4 14:47:58 Falls 152616331 Active 2023 JAVY MABRY NP [address], [address], [place], [address], [facility] 4 14:53:49 Type 2 diabetes mellitus 68274621 Active 2023 JAVY MABRY NP [address], [place], [address], [facility] 4 15:00:44 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 Medical Equipment None Reported. Allergies Allergen ID Allergen Name Allergen Category Reaction Reaction Severity Criticality Documentation Date Start Date Code Code System Note Provider Name and Address Organization Details Recorded Time 42077 Bactrim medicatio n Not available Not available Not available 03/23/2024 34195 9 RxNorm Not Available Not Available Not Available 82274 vancomyci n medicatio n Not available Not available Not available 03/23/2024 49050 RxNorm Not Available Not Available Not Available Medications Not known to be on any medication Vitals Date Recorded Body weight Heart rate Respiratory rate Body temperature Oxygen saturation Oxygen saturation in Arterial blood by Pulse oximetry Systolic blood pressure Diastolic blood pressure Provider Name and Address Organization Details Last Updated DateTime 4 74786.9 2 g 74 /min 16 /min 97.1 [degF] 97 % 97 % 102 mm[Hg] 65 mm[Hg] JAVY MABRY NP [address], [address], [place], [address], [facility] 4 14:45:21 Date Recorded Body weight Heart rate Respiratory rate Body temperature Oxygen saturation Oxygen saturation in Arterial blood by Pulse oximetry Systolic blood pressure Diastolic blood pressure Provider Name and Address Organization Details Last Updated DateTime 5 58162.4 4 g 67 /min 18 /min 97.4 [degF] 98 % 98 % 150 mm[Hg] 80 mm[Hg] Jasmin La NP [address], [address], [place], [address], [facility] 5 16:11:23 Date Recorded Body weight Heart rate Respiratory rate Body temperature Oxygen saturation Oxygen saturation in Arterial blood by Pulse oximetry Systolic blood pressure Diastolic blood pressure Provider Name and Address Organization Details Last Updated DateTime 5 99774 g 82 /min 16 /min 97.2 [degF] 95 % 95 % 134 mm[Hg] 60 mm[Hg] Jasmin La NP [address], [address], [place], [address], [facility] 5 20:25:18 Date Recorded Body weight Heart rate Respiratory rate Body temperature Oxygen saturation Oxygen saturation in Arterial blood by Pulse oximetry Systolic blood pressure Diastolic blood pressure Provider Name and Address Organization Details Last Updated DateTime 5 05995 g 76 /min 18 /min 97.8 [degF] 99 % 99 % 126 mm[Hg] 71 mm[Hg] Jasmin La NP [address], [address], [place], [address], [facility] 5 09:45:11 Date Recorded Systolic blood pressure Diastolic blood pressure Provider Name and Address Organization Details Last Updated DateTime 03/25/2024 112 mm[Hg] 78 mm[Hg] Jatin Landis MD [address], [address], [place], [address], [facility] 03/25/2024 10:06:23 Social History Question Answer Notes LastModified by Organizat ion Details LastModified Time Tobacco Smoking Status Never Smoker JAVY MABRY NP [address], [address], [place], [address], [facility] 03/23/2024 14:49:48 Do You Have [...] virus (RSV), unspecified 3 completed Eulalia Chandra [facility] 03/26/2024 14:51:00 Hep B, unspecified formulation 8 completed [facility]/26/2024 14:51:16 [facility] 5 [facility]/26/2024 14:51:30 Pneumococcal conjugate PCV 13 3 completed Eulalia Chandra [facility] 03/26/2024 14:55:05 pneumococcal polysaccharide PPV23 6 completed Eulalia brasher [facility] 03/26/2024 14:55:34 pneumococcal polysaccharide PPV23 6 completed Eulalia Prateek null, [facility] 03/26/2024 14:55:41 influenza, unspecified formulation 2 completed Eulalia Prateek null, [facility] 03/26/2024 14:56:07 influenza, unspecified formulation 3 completed Eulalia Prateek null, [facility] 03/26/2024 14:56:17 influenza, unspecified formulation 4 completed Eulalia Prateek null, [facility] 03/26/2024 14:56:27 meningococcal ACWY, unspecified formulation 9 completed Eulalia Prateek null, [facility] 03/26/2024 14:56:54 SARS-COV-2 (COVID-19) vaccine, UNSPECIFIED 1 completed [facility] 03/26/2024 14:57:07 SARS-COV-2 (COVID-19) vaccine, UNSPECIFIED 1 completed Eulalia Prateek null, [facility] 03/26/2024 14:57:15 SARS-COV-2 (COVID-19) vaccine, UNSPECIFIED 1 completed Eulalia Prateek null, [facility] 03/26/2024 14:57:24 SARS-COV-2 (COVID-19) vaccine, UNSPECIFIED 2 completed Eulalia Prateek null, [facility] 03/26/2024 14:57:32 SARS-COV-2 (COVID-19) vaccine, UNSPECIFIED 2 completed Eulalia Prateek null, [facility] 03/26/2024 14:57:40 SARS-COV-2 (COVID-19) vaccine, UNSPECIFIED 3 completed Eulalia Prateek null, [facility] 03/26/2024 14:57:48 zoster, unspecified formulation 3 completed [facility] 03/26/2024 14:58:02 zoster, unspecified formulation 3 completed Eulalia Prateek null, [facility] 03/26/2024 14:58:10 Past Encounters Encounter ID Performer Location Encounter Start Date Encounter Closed Date Diagnosis/Indication Diagnosis SNOMED-CT Code Diagnosis ICD10 Code Diagnosis Note [id number] JAVY MABRY NP [address] [address] 03/23/2024 14:38:33 03/25/2024 12:39:17 Alcohol abuse 24267523 F10.10 monitor for any signs of withdrawlf olic 1 mg dailyNaltr exone 60 mg dailyThiam ine 100 mg dailyMag ox 400 mg dailymvi dailyVit C 500 dailyBuspa r 10 mg bidCymbalt a 60 mg dailyWellb utrin 150 mg daily Osteomyelitis 85580235 M 86.9 Doxycyline 100 mg bid to 03/25monit or for any signs of infections [place] of skin 09349 38451 01 T14.8XXA Doxycyline 100 mg bid to 03/25monit or for any signs of infections wound consult [place] 093819206 R29.6 PTOT eval and treatfall precaution sfrequent safety checks Atrial fibrillation 4943 6004 I48.91 Diltiazem er 180 mg dailyMetop rolol 25 mg bidmonitor heart rate Essential hypertension 67829424 I10 Diltiazem er 180 mg dailyMetop rolol 25 mg bidmonitor bp Hyperlipidemia 62432907 E78.5 atorvastat in 20 mg daily Type 2 dylon betes mellitus 76559252 E11.9 monitor glucose [id number] Jatin Landis MD [address] [address] 03/25/2024 10:05:56 03/26/2024 13:18:46 Alcohol abuse 73061209 F10.132 see HPIcontinu ed on thiamine and supplement seval by addiction med in [facility] need for increased support in community Osteomyelitis 13613574 M 86.052 carrying dx left chronic osteo at bka sitestarte d empiricall y on doxy through 03/25repea t cbcID / ortho eval prnmonitor siteupdate ortho with concerns Open wound of skin 64938 91620 01 T14.8XXA see above with chronic infection Atrial fibrillation 4943 6004 I48.0 pradaxa 150 mg bidmetopro lol 25 mg bidmonitor for rate control Essential hypertension 09250473 I10 Diltiazem 180 mg qdlisinopr il 10 mg qdMetoprol ol 25 mg bidmonitor bp and need to titrate Hyperlipidemia 27394562 E78.2 lipitor 20 mg qdcontinue d Type 2 dylon betes mellitus 65488998 E11.9 diet controlled now off metforminm ost recent hba1c wnrmonitor accucheck prn Asthenia 06311102 R53.1 weakness and gait instabilit yPT OT Eval and treatmonit or fall risk and need for increased support in community Marginal z one lymphoma 144104619 C83.07 carrying dx added to PMHlimited informatio n availabler equest prior notes from PCP Benign pro static hyperplasia without outflow obstruction 348125450 N40.0 added to PMHmonitor for retention [id number] Jasmin La NP [address] [address] 03/28/2024 16:08:27 03/29/2024 11:48:40 Alcohol abuse 65665978 F10.132 see HPInaltrex one 50 mg po qdcontinue d on thiamine and supplement seval'd by addiction services in [facility] work to be involved at [facility] need for increased support in community Osteomyelitis 37504970 M 86.052 carrying dx left chronic osteo at a sitecomple nori ramon empiricall y through 03/25ID / ortho eval prnmonitor siteupdate ortho with concerns Open wound of skin 28242 00111 01 T14.8XXA see above with chronic infection Asthenia 62688240 R53.1 weakness and gait instabilit yPT OT Eval and treatmonit or fall risk and need for increased support in community Atrial fibrillation 4943 6004 I48.0 contpradax a 150 mg bidmetopro lol 25 mg bidmonitor for rate control Essential hypertension 72749932 I10 controlled contDiltia zem 180 mg qdlisinopr il 10 mg qdMetoprol ol 25 mg bidmonitor bp and need to titrate Hyperlipidemia 51457190 E78.2 lipitor 20 mg qdcontinue d Type 2 dylon betes mellitus 44995007 E11.9 diet controlled , reportedha d low BS in hospital with possible low BS related to skin conditionn ow off metforminm ost recent hba1c wnrmonitor accucheck prn Marginal z one lymphoma 227585843 C83.07 with hx oflimited informatio n availablef u with oncology 04/05 Atopic dermatitis 710810 01 L20.9 pt with notable scab like [...] cular 04/11 @ 13pm. Rheumatoid arthritis 698 17795 M06.9 he denies arthritis today however has likely underlying arthritisf u with Rheumatoid appt with Dr Hart 07/04 @ 11am. [id number] Jasmin La NP [address] [address] 04/05/2024 12:48:06 04/09/2024 09:15:27 Atopic dermatitis 60509597 L20.9 pt with notable scab like ulceration [...] changesVas cular 04/11 @ 13pm. Alcohol abuse 98077139 F 10.132 see HPInaltrex one 50 mg po qdcontinue d on thiamine and supplement seval'd by addiction services in hospitalso cial work to be involved at facilitymo nitor need for increased support in community Osteomyelitis 97377904 M 86.052 carrying dx left chronic osteo at bka sitecomple nori doxy empiricall y through 03/25ID / ortho eval prnmonitor site for s/s infectionu pdate ortho with concerns Open wound of skin 18396 45754 01 T14.8XXA see above with chronic infection Asthenia 25554647 R53.1 weakness and gait instabilit yPT OT Eval and treatmonit or fall risk and need for increased support in community Atrial fibrillation 4943 6004 I48.0 contpradax a 150 mg bidmetopro lol 25 mg bidmonitor for rate control Essential hypertension 16643462 I10 controlled contDiltia zem 180 mg qdlisinopr il 10 mg qdMetoprol ol 25 mg bidmonitor bp and need to titrate Hyperlipidemia 34784425 E78.2 lipitor 20 mg qdcontinue d Type 2 dylon betes mellitus 14747708 E11.9 diet controlled , reportedha d low BS in hospital with possible low BS related to skin conditionn ow off metforminm ost recent hba1c wnrmonitor accucheck prn Marginal z one lymphoma 604982797 C83.07 with hx oflimited informatio n availablef u with oncology 04/05result s and consult pending Rheumatoid arthritis 698 42027 M06.9 he denies arthritis today however has likely underlying arthritisf u with Rheumatoid appt with Dr Hart 07/04 @ [facility]. [id number] Jasmin La NP [facility] [address] [address] 04/12/2024 09:03:45 04/15/2024 16:27:46 Osteomyelitis 27471603 M86.052 resolvedca rrying dx left chronic osteo at bka sitecomple nori doxy empiricall y through 03/25ID / ortho eval prnmonitor site for s/s infection outpt with pcpupdate ortho with concerns outpt prn Atopic dermatitis 452583 01 L20.9 mostly resolvedpt with notable scab like ulceration s and peeling of skin in webs of fingers now resolvingc ont triamcinol one 0.5% oint 1 dime size area to affected hands until resolved, will go home with tube for a few more daysmonito r for changes outpt with pcp Alcohol abuse 02528439 F 10.132 see HPInaltrex one 50 mg po qdcontinue d on thiamine and supplement seval'd by addiction services in [facility] need for increased support in community outpt with vna and pcp services in place, also reports a cleaning service helps him Open wound of skin 27737 25688 01 T14.8XXA see above with chronic infection now resolvedfu with wound outpt, wound almost healed Asthenia 66790715 R53.1 seems back to baselinePT OT Eval and treat outpt prnmonitor fall risk and need for increased support in communityv na services in place per social studies teacher Atrial fibrillation 4943 6004 I48.0 contpradax a 150 mg bidmetopro lol 25 mg bidmonitor for rate control outpt with pcp Essential hypertension 43102168 I10 controlled contDiltia zem 180 mg qdlisinopr il 10 mg qdMetoprol ol 25 mg bidmonitor bp and need to titrate outpt with pcp Hyperlipidemia 03755224 E78.2 lipitor 20 mg qdmonitor outpt with pcp Type 2 dylon betes mellitus 81932634 E11.9 diet controlled , reportedno w off metforminm ost recent hba1c wnrBS very stable heremonito r accucheck prn outpt with pcp Marginal z one lymphoma 202563945 C83.07 with hx oflimited informatio n availablef u with oncology prn outptconsu lt note not received here from 04/05 appt Rheumatoid arthritis 698 69076 M06.9 he denies arthritis today however has likely underlying arthritisf u with Rheumatoid appt with Dr Hart 07/04 @ 11am as scheduled Peripheral arterial insufficiency 3118707514 44425 I73.9 with L BKA and osteo healednote [...] [place] [employer] Ashley Francis [id number] Ashley Francis 03/25/2024 1 [place] [employer] Ashley Francis [id number] Ashley Francis 03/25/2024 2 [place] [facility] [id number] Ashley Francis 03/28/2024 1 [place] [employer] Ashley Francis [id number] Ashley Francis 03/28/2024 2 [place] [facility] Ashley Francis [id number] Ashley Francis 04/05/2024 1 [employer] (MEDICARE REPLACEMENT PPO) [id number] Ashley Francis [id number] Ashley Francis 04/12/2024 1 [employer] (MEDICARE REPLACEMENT PPO) [id number] Ashley Francis [id number] Ashley Francis Notes Date Note Type Note [...] subject to another. JAVY MABRY NP [address], [address], [place], [address], [facility] 03/23/2024 15:11:32 4 text/htm l Patient [...] care and therapy Jatin Landis MD [address], [address], [place], [address], [facility] 03/25/2024 10:32:21 5 text/htm l Pt [...] appt was taken. Jasmin La NP [address], [address], [place], [address], [facility] 03/28/2024 19:26:02 5 text/htm l Pt is [...] appt was taken. Jasmin La NP [address], [address], [place], [address], [place] [facility] 04/05/2024 20:47:53 5 text/htm victor m [...] prep qd to Left BKA. While at [facility] [place]: Ashley has been fu with appointments: Saw [...] and scale resolved. Jasmin La NP [address], [address], [place], [address], [facility] 04/12/2024 10:20:27
--- OUTSIDE RECORDS SUMMARY | 2024-07-08 16:16 | XMS_ITS | Clinical Summary ---
Author Organization [facility] Address [address] [place] [address] Care Team Providers Care Youth Support Worker Name Role Phone Nikole Mauricio Primary Care Provider [phone] Allergies Active Allergy Reactions Criticality Noted Date [...] Colonoscopy 1957 FOBT / Fit Test 1957 Sigmoidoscopy 1957 DTaP,Tdap,and Td Vaccines (1 - Tdap) 04/23/2004 04/22/2004 Pneumococcal Vaccine: 50+ Ye ars (1 of 1 - PCV) 2007 Zoster Vaccines (1 of 2) 2007 COVID-19 Vaccine ( - 2023-2 5 season) 2023 Alcohol/Substance Use Screening 03/27/2024 Health Care Proxy Review 03/27/2024 Influenza Vaccine (Season Ended) 2024 RSV Vaccine (60+ years old a nd patients) (1 - 1-dose 75+ series) 02/23/2032 Hepatitis B Vaccines Aged Out No long er eligible based on patient's age to complete [place] [address] MEDICARE Care Teams Youth Support Worker Relationship Specialty Start Date End Date Nikole Mauricio [address] [facility] [place] [address] PCP - General Internal Medicine 01/02/24
--- OUTSIDE RECORDS SUMMARY | 2024-07-08 16:16 | XMS_ITS | Data Portability ---
Author Organization [facility] Address [address] [place] [address] Care Team Providers Care Hazardous Waste Technician Name Role Phone HIM MARY OTHER Assessment [...] Not available Not available Not available 01/23/2024 65303 RxNorm Not Available [facility] - production 4 03:38:22 7568 Bactrim medicatio n Not available Not available Not available 01/23/2024 80140 9 RxNorm Not Available [facility] - production [...] /min 187.96 cm 100 % 100 % 93057.4 4 g 99.5 [degF] 18 /min 185 mm[Hg] 98 mm[Hg] Not Available [facility] 4 18:00:42 Social History None recorded. Functional Status None recorded. Mental Status None recorded. Family History Nothing Reported. Medical History No medical history recorded. Past Encounters Encounter ID Performer Location Encounter Start Date Encounter Closed Date Diagnosis/Indication Diagnosis SNOMED-CT Code Diagnosis ICD10 Code Diagnosis Note [id number] Carlos Loo MD Main - [facility] [address] [place] [address] 09/12/2023 18:00:34 09/12/2023 21:22:44 Open wound of lower leg 709971875 S81.802A Health Concerns Section Related Observation LastModified by Organization Detai ls LastModified Time None Recorded Concern Status LastModified by Organization Details LastModified Time None Recorded Advance Directives Directive None Recorded Payers Encounter Date Sequence Insurance Name Policy Number Policy Alba Covered Member ID Alba Member ID Guarantor Name 09/12/2023 1 [facility] - DOS ON OR AFTER 2022 - DUAL ELIGIBLE - USP OPTIONS AND ONE CARE (MEDICARE REPLACEMENT/ADV ANTAGE - HMO) Ashley Francis [id number] Ashley Francis Notes Date Note Type Note Provider Name and Address Organization Details Recorded Time 09/12/2023 text/html CRC Nurse Triage Notes (Kristin Aguila): Reason For Request: [facility] member airfield services officer Magaly reporting mbr is requesting [facility] for [...] .................... .................... .................... .................... .................... .................... . Leach Runner Note From Mera Mukherjee: Sent to a [...] .................... .................... . Disposition: Musa Loo MD [address] [place] [address],[address], [place], [address], [place] [facility] 09/12/2023 19:31:35
--- OUTSIDE RECORDS SUMMARY | 2024-07-08 16:16 | XMS_ITS | Clinical Summary ---
Author Organization [facility] Address [address] [place] [address] Phone Care Team Providers Care Insurance Rater Name Role Phone Jatin Landis MD Primary Care Provider [phone] Social History Tobacco Use Types Packs/Day Years [...] 1967 Diabetes: Annual Retina Eye Exam 1967 Pneumococcal Vaccine: 50+ Years (1 of 2 - PCV) 02/23/1976 Zoster Vaccines (1 of 2) 02/23/1976 DTaP,Tdap,and Td Vaccines (2 - Td or Tdap) 04/22/2014 04/22/2004 RSV Immunization Adult Patients (1 - Risk 60-74 years 1-dose series) 2017 Cholesterol Screening (Lipid Panel) 03/25/2024 Colorectal Cancer Screening: Colonoscopy 03/25/2024 Depression Screening 03/25/2024 Falls Risk Assessment 03/25/2024 Hepatitis C Screening 03/25/2024 Medicare Annual Wellness Visit 03/25/2024 Social Influencers of Health Screening 03/25/2024 Diabetes: Annual Urine Albumin-Creatinine Ratio (uACR) 03/29/2024 Diabetes: Blood Sugar Contro l Test (HGBA1C) 03/29/2024 Influenza Vaccine (Season Ended) 2024 Diabetes: Annual GFR (Glomerular Filtration Rate) 04/08/2025 04/08/2024, 03/25/2024 Hypertension/CHF/CAD Annual BMP Blood Test 04/08/2025 04/08/2024, 03/25/2024 HIB Vaccines Aged Out No longer eligi ble based on patient's age to complete this topic HPV Vaccines Aged Out No longer eligi ble based on patient's age to complete this topic Hepatitis A Vaccines Aged Out No long er eligible [...] age to complete this topic Meningococcal B Vaccine Aged Out No l onger eligible based on patient's age to complete this topic RSV Immunization Patients Under 20 months Aged Out No longer eligible b ased on patient's age to complete this topic Varicella Vaccines Aged Out No longer eligible based on patient's age to complete this topic Procedures Procedure Name Priority Date/Time Associated Diagnosis Comments COMPREHENSIVE METABOLIC PANEL Routine 04/08/2024 4:52 AM EST 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, 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 from Last 3 Months or Most Recently Relevant to Health Maintenance Results * (ABNORMAL) Comprehensive metabolic panel (04/08/2024 4:52 AM EST) Sodium 141 133 - 145 mmol/L LAB CHEMISTRY METHOD 04/08/2024 11:16 AM [facility] Potassium 4.5 3.5 - 5.5 mmol/L LAB CHEMISTRY METHOD 04/08/2024 11:16 AM [facility] Chloride 108 96 - 110 mmol/L LAB CHEMISTRY METHOD 04/08/2024 11:16 AM [facility] CO2 25 21 - 32 mmol/L LAB CHEMISTRY METHOD 04/08/2024 11:16 AM [facility] Anion Gap 8 3 - 11 LAB CHEMISTRY METHOD 04/08/2024 11:16 AM [facility] Glucose 98 70 - 100 mg/dL LAB CHEMISTRY METHOD 04/08/2024 11:16 AM [facility] BUN 15 5 - 25 mg/dL LAB CHEMISTRY METHOD 04/08/2024 11:16 AM [facility] Creatinine 0.73 0.70 - 1.30 mg/dL LAB CHEMISTRY METHOD 04/08/2024 11:16 AM [facility] eGFR 100 >=60 mL/min/1. 73m2 LAB CHEMISTRY METHOD 04/08/2024 11:16 AM [facility] Comment:Calculation based on the??Chronic Kidney Disease Epidemiology Collaboration (CKD-EPI) equation refit??without adjustment for race. BUN/Creatinine Ratio 20.5 LAB CHEMISTRY METHOD 04/08/2024 11:16 AM [facility] Calcium 9.0 8.5 - 10.5 mg/dL LAB CHEMISTRY METHOD 04/08/2024 11:16 AM [facility] AST (SGOT) 24 10 - 42 unit/L LAB CHEMISTRY METHOD 04/08/2024 11:16 AM [facility] ALT (SGPT) 39 10 - 60 unit/L LAB CHEMISTRY METHOD 04/08/2024 11:16 AM [facility] Comment:Results verified by repeat testing Alkaline Phosphatase 138(H) 42 - 121 unit/L LAB CHEMISTRY METHOD 04/08/2024 11:16 AM [facility] Total Protein 6.1 6.0 - 8.0 g/dL LAB CHEMISTRY METHOD 04/08/2024 11:16 AM [facility] Albumin 3.5 3.2 - 5.0 g/dL LAB CHEMISTRY METHOD 04/08/2024 11:16 AM [facility] Total Bilirubin 0.3 0.0 - 1.4 mg/dL LAB CHEMISTRY METHOD 04/08/2024 11:16 AM [facility] Blood Venous blood specimen / Unknown Venipuncture / Unknown 04/08/2024 4:52 AM EST 04/08/2024 9:04 AM EST us Jatin Landis MD LAB BLOOD ORDERABLES Final Resul t [facility] ([facility]) [facility] [address] [place] [address], from Last 3 Months or Most Recently Relevant to Health Maintenance Insurance MEDICARE [employer] MEDICARE ADVANTAGE Care Teams Insurance Rater Relationship Specialty Start Date End Date Jatin Landis MD [address] [place] [address], [phone] PCP - General Family Medicine 03/25/24
--- OUTSIDE RECORDS SUMMARY | 2024-07-08 16:16 | XMS_ITS | Referral Summary ---
Author Organization [facility] Address [address] [place] [address] Care Team Providers Care Body Engineer Name Role Phone Nikole Mauricio Primary Care Provider [phone] Allergies Active Allergy Reactions Criticality Noted Date [...] [place] [address] MEDICARE Member Subscriber Plan / Payer (Ef fective 2018-Present) Name:Ashley Francis Member ID:[id number] Relation to Subscriber:Self Name:Ashley Francis Subscriber ID:[id number] Payer ID:[id number] Group ID:Not on file Type:Not on file Address: [address] [place] [phone] Care Teams Body Engineer Relationship Specialty Start Date End Date Nikole Mauricio [address] [place] [address] PCP - General Internal Medicine 01/02/24
[2024-07-08 16:45] LABS: Glucose, Whole Blood 165 mg/dL (60-115)
[2024-07-08 17:20] LABS: Estimated Average Glucose 131 mg/dL; Hemoglobin A1c % 6.2 % (<6.0); Total Hemoglobin (HGBA1C) 3527.0341 umol/L
[2024-07-08 17:34] LABS: ~Lactic Acid-LAB USE ONLY 2.7 mmol/L (0.5-2.0)
--- NOTE | 2024-07-08 17:53 | PHA.MEDREC ---
Addendum entered by [place] [facility] 07/08/24 18:35: Med rec checked by [facility] Original Note: Pharmacy Consult ? Medication Reconciliation Pharmacy has completed the medication reconciliation. Spoke to patient to confirm med list. Patient was able to confirm all his medications. Patient states he no longer takes Lisinopril 10 mg, Magnesium Oxide 400 mg, Fleet Enema, and Triamcinolone acet. Patient took his medications today in the morning.
[2024-07-08 18:00] VITALS: BP 163/86; PULSE 84; RESP 20; TEMP 36.3; O2SAT 98
[2024-07-08 18:20] LABS: Cancel Lactic Acid Canceled
[2024-07-08] MEDS: Insulin Lispro 100 UNIT/ML 3 ML VIAL SUBCUT (18:20)
[2024-07-08] MEDS: PHENobarbitaL sodium 130 MG/ML VIAL IM Q3Hx2 233 MG IM ×2 (18:20→22:39)
[2024-07-08 18:21] LABS: Reflex Lactate? 2 N
[2024-07-08] MEDS: Linezolid/D5W 600 MG/300 ML PIGGYBACK 300 MG IV (18:23)
[2024-07-08 20:44] VITALS: BP 138/66; PULSE 80; RESP 16; TEMP 36.9; O2SAT 97
[2024-07-08 21:06] LABS: Glucose, Whole Blood 137 mg/dL (60-115)
[2024-07-08] MEDS: Metoprolol Tartrate 50 MG TABLET PO (22:36)
[2024-07-08] MEDS: Dabigatran Etexilate Mesylate 150 MG CAPSULE PO (22:36)
[2024-07-08] MEDS: busPIRone HCl 10 MG TABLET PO (22:36)
[2024-07-08] MEDS: NaPROXEN 500 MG TABLET PO (22:36)
[2024-07-08] MEDS: Atorvastatin Calcium 20 MG TABLET PO (22:36)
[2024-07-08] MEDS: Piperacillin Sodium/Tazobactam 4.5 GM in 0.9 % Sodium Chloride 100 ML IV (22:38)
[2024-07-08 23:56] VITALS: BP 153/85; PULSE 80; RESP 16; TEMP 36.2; O2SAT 95
[2024-07-09] VITALS (8 sets, daily range): BP systolic 131–156; BP diastolic 68–86; PULSE 75–106; RESP 16–20; TEMP 36.3–37.2; O2SAT 96–98
[2024-07-09] MEDS: Piperacillin Sodium/Tazobactam 4.5 GM in 0.9 % Sodium Chloride 100 ML IV ×4 (03:03→21:27)
[2024-07-09] MEDS: 0.9 % Sodium Chloride Flush 3 ML SYRINGE IVFLUSH ×3 (03:03→21:18)
[2024-07-09] MEDS: Linezolid/D5W 600 MG/300 ML PIGGYBACK 300 MG IV ×2 (05:21→17:47)
[2024-07-09 07:36] LABS: Glucose, Whole Blood 132 mg/dL (60-115)
[2024-07-09 07:57] LABS: Hematocrit 39.6 % (42.0-52.0); Hemoglobin 13.7 g/dl (14.0-18.0); Mean Corpuscular HGB Conc 34.6 g/dl (31.0-36.0); Mean Corpuscular Hemoglobin 32.9 pg (27.0-33.0); Mean Corpuscular Volume 95.2 fL (80.0-98.0); NRBC Pct Auto 0.2 /100WBC (0.0-0.2); Platelet Count 331 X10*3/uL (160-400); Red Blood Count 4.16 X10*6/uL (4.60-5.80); White Blood Count 9.2 X10*3/uL (4.8-10.8)
[2024-07-09 08:13] LABS: Anion Gap 14 (12-20); Blood Urea Nitrogen 15 mg/dL (9-16); Calcium 8.2 mg/dL (8.4-10.2); Carbon Dioxide 24 mmol/L (22-29); Chloride 105 mmol/L (96-108); Creatinine Clr Calc Pharmacy 87.6; Estimated Glomerular Filt Rate > 60; Glucose Random 129 mg/dL (60-115); Potassium 3.6 mmol/L (3.3-5.1); Sodium 139 mmol/L (135-145)
[2024-07-09] MEDS: allopurinoL 100 MG TABLET 200 MG PO (08:35)
[2024-07-09] MEDS: Dabigatran Etexilate Mesylate 150 MG CAPSULE PO ×2 (08:36→21:16)
[2024-07-09] MEDS: buPROPion HCl XL 150 MG TAB.ER.24H PO (08:36)
[2024-07-09] MEDS: Ascorbic Acid 500 MG TABLET PO (08:36)
[2024-07-09] MEDS: busPIRone HCl 10 MG TABLET PO ×2 (08:36→21:15)
[2024-07-09] MEDS: Digoxin 0.125 MG TABLET PO (08:36)
[2024-07-09] MEDS: dilTIAZem HCL CD 180 MG CAP.ER.24H PO (08:37)
[2024-07-09] MEDS: DULoxetine HCl 60 MG CAPSULE.DR PO (08:38)
[2024-07-09] MEDS: Metoprolol Tartrate 50 MG TABLET PO ×2 (08:38→21:16)
[2024-07-09] MEDS: NaPROXEN 500 MG TABLET PO ×2 (08:40→21:15)
[2024-07-09] MEDS: Multivitamin TABLET 1 TAB PO (08:40)
[2024-07-09] MEDS: PHENobarbitaL 30 MG TABLET 60 MG PO ×2 (08:41→21:15)
--- NOTE | 2024-07-09 08:56 | P.PNIM_ITS ---
Subjective Subjective Date of Service: 07/09/24 Interval History: withdrawal improving Physical Exam 2 Vital Signs: Vital Signs: Last Vital Signs Temp 97.4 F 07/09/24 07:09 Pulse 106 H 07/09/24 08:38 Resp 18 07/09/24 07:09 BP 143/80 H 07/09/24 08:38 Pulse Ox 97 07/09/24 07:09 O2 Del Method Room Air 07/09/24 07:09 BMI result Body Mass Index 29.8 Constitutional - Awake and Alert, No apparent distress Eyes - PERRLA, EOMI Cardiovascular - S1S2, RRR, No edema Respiratory - Normal lung expansion, Normal respiratory effort, No respiratory distress, CTA bilaterally Extremities - no calf tenderness bilaterally, no swelling Skin - Warm/Dry. erythema of the cheeks bilaterally. Erythema and warmth of the anterior aspect of the right lower leg with scattered venous ulcerations and several with serous drainage. There is maceration of the plantar surface of the right foot and an abrasion of the lateral aspect of the right great toe Neurological - Alert & oriented x3, bilateral hand tremors at rest Psychological - Appropriate affect Objective Data Active Medications Allopurinol (Allopurinol 100 Mg Tablet) 200 mg PO DAILY [facility] Last Admin: 07/09/24 08:35 Dose: 200 mg Documented By: JOSETTE Ascorbic Acid (Ascorbic Acid 500 Mg Tablet) 500 mg PO DAILY [facility] Last Admin: 07/09/24 08:36 Dose: 500 mg Documented By: JOSETTE Atorvastatin Calcium (Atorvastatin Calcium 20 Mg Tablet) 20 mg PO BEDTIME [facility] Last Admin: 07/08/24 22:36 Dose: 20 mg Documented By: IRVING Bupropion HCl (Bupropion Hcl Xl 150 Mg Tab.Er.24h) 150 mg PO DAILY [facility] Last Admin: 07/09/24 08:36 Dose: 150 mg Documented By: JOSETTE Buspirone HCl (Buspirone Hcl 10 Mg Tablet) 10 mg PO BID [facility] Last Admin: 07/09/24 08:36 Dose: 10 mg Documented By: JOSETTE Calcium Carbonate (Calcium Carbonate 750 Mg Tab.Chew) 750 mg PO Q4H PRN PRN Reason: Heartburn Dabigatran (Dabigatran Etexilate Mesylate 150 Mg Capsule) 150 mg PO BID [facility] Last Admin: 07/09/24 08:36 Dose: 150 mg Documented By: JOSETTE Dextrose (Dextrose 50 % 25 Gm/50 Ml Syringe) 25 gm IVPUSH Q15M PRN; Protocol PRN Reason: per Hypoglycemia Standing Ord. Digoxin (Digoxin 0.125 Mg Tablet) 0.125 mg PO DAILY [facility]; Protocol Last Admin: 07/09/24 08:36 Dose: 0.125 mg Documented By: JOSETTE Comments: HR 106 Diltiazem HCl (Diltiazem Hcl Cd 180 Mg Cap.Er.24h) 180 mg PO DAILY [facility]; Protocol Last Admin: 07/09/24 08:37 Dose: 180 mg Documented By: JOSETTE Duloxetine HCl (Duloxetine Hcl 60 Mg Capsule.Dr) 60 mg PO DAILY [facility] Last Admin: 07/09/24 08:38 Dose: 60 mg Documented By: JOSETTE Glucose (Glucose Gel 15 Gm Gel..Gram.) 15 gm PO Q15M PRN; Protocol PRN Reason: per Hypoglycemia Standing Ord. Piperacillin Sod/Tazobactam (Sod 4.5 gm/ Sodium Chloride) 100 mls @ 200 mls/hr IV Q6H [facility] Last Infusion: 07/09/24 04:31 Dose: Infused Documented By: IRVING Thiamine HCl 100 mg/ Sodium (Chloride) 101 mls @ 202 mls/hr IV DAILY [facility] Folic Acid 1 mg/ Sodium (Chloride) 50.2 mls @ 100.4 mls/hr IV DAILY [facility] Linezolid (Zyvox/D5w) 600 mg in 300 mls @ 300 mls/hr IV Q12H [facility] Last Infusion: 07/09/24 06:21 Dose: Infused Documented By: CARLIE Insulin Human Lispro (Insulin Lispro 100 Unit/Ml 3 Ml Vial) 0 unit SUBCUT QIDACHS [facility]; Protocol Last Admin: 07/09/24 07:40 Dose: Not Given Documented By: CARLIE Non-Admin Reason: No Insulin Coverage Magnesium Hydroxide (Milk Of Magnesia 30 Ml Oral.Susp) 30 ml PO DAILY PRN PRN Reason: Constipation Melatonin (Melatonin 3 Mg Tablet) 6 mg PO BEDTIME PRN PRN Reason: Insomnia Metoprolol Tartrate (Metoprolol Tartrate 50 Mg Tablet) 50 mg PO BID [facility]; Protocol Last Admin: 07/09/24 08:38 Dose: 50 mg Documented By: JOSETTE Metronidazole (Metronidazole 0.75 % Gel 45 Gm Tube) 1 appl TOPICAL BID [facility] Last Admin: 07/08/24 22:39 Dose: Not Given Documented By: IRVING Non-Admin Reason: Med Not Available Multivitamins/Vitamin C (Multivitamin Tablet) 1 tab PO DAILY [facility] Last Admin: 07/09/24 08:40 Dose: 1 tab Documented By: JOSETTE Naproxen (Naproxen 500 Mg Tablet) 500 mg PO BID [facility] Last Admin: 07/09/24 08:40 Dose: 500 mg Documented By: JOSETTE Pharmacy Consult (Consult Rx Etoh Phenob Im/Po) 1 each MISCELLANE ONCE PRN; Protocol PRN Reason: Consult order Phenobarbital (Phenobarbital 30 Mg Tablet) 60 mg PO BID [facility] Stop: 07/10/24 21:01 Last Admin: 07/09/24 08:41 Dose: 60 mg Documented By: JOSETTE Phenobarbital (Phenobarbital 30 Mg Tablet) 30 mg PO BID [facility] Stop: 07/12/24 21:01 Phenobarbital (Phenobarbital 30 Mg Tablet) 30 mg PO DAILY [facility] Stop: 07/14/24 09:01 Sodium Chloride (0.9 % Sodium Chloride Flush 3 Ml Syringe) 3 ml IVFLUSH QSHIFT [facility] Last Admin: 07/09/24 03:03 Dose: 3 ml Documented By: IRVING Labs 07/09/24 07:20 07/09/24 07:20 Labs: Laboratory Results - last 24 hr 07/08/24 07/08/24 07/08/24 13:58 13:59 16:40 MCV 95.5 MCH 32.4 MCHC 33.9 RDW 15.6 Plt Count 375 MPV 9.8 Immature Gran % (Auto) 0.5 H Neut % (Auto) 80.9 H Lymph % (Auto) 9.4 L P[place] % (Auto) 6.7 Eos % (Auto) 1.5 Baso % (Auto) 1.0 Lymph # (Auto) 1.3 P[place] # (Auto) 0.9 Eos # (Auto) 0.2 Baso # (Auto) 0.1 Abs Immat Gran (auto) 0.07 H Absolute Neuts (auto) 11.3 H Absolute Nucleated RBC 0.000 Nucleated RBC % (auto) 0.0 ESR 7 Anion Gap 16 Estim Creat Clear Calc 108.2 Estimated GFR > 60 POC Glucose 165 H Random Glucose 115 Estimat Average Glucose Hemoglobin A1c % Lactic Acid 2.7 H* Lactic Acid F/U @ 2Hr Calcium 8.8 Magnesium 1.4 L* Total Bilirubin 0.5 AST 35 ALT 17 Alkaline Phosphatase 167 H C-Reactive Protein 0.47 Total Protein 6.6 Albumin 3.9 Ethyl Alcohol 15 07/08/24 07/08/24 07/09/24 17:07 21:02 07:13 MCV MCH MCHC RDW Plt Count MPV Immature Gran % (Auto) Neut % (Auto) Lymph % (Auto) Pinal % (Auto) Eos % (Auto) Baso % (Auto) Lymph # (Auto) Pinal # (Auto) Eos # (Auto) Baso # (Auto) Abs Immat Gran (auto) Absolute Neuts (auto) Absolute Nucleated RBC Nucleated RBC % (auto) ESR Anion Gap Estim Creat Clear Calc Estimated GFR POC Glucose 137 H 132 H Random Glucose Estimat Average Glucose 131 Hemoglobin A1c % 6.2 H Lactic Acid Lactic Acid F/U @ 2Hr 2.7 H* Calcium Magnesium Total Bilirubin AST ALT Alkaline Phosphatase C-Reactive Protein Total Protein Albumin Ethyl Alcohol 07/09/24 07:20 MCV 95.2 MCH 32.9 MCHC 34.6 RDW 15.0 Plt Count 331 MPV 10.0 Immature Gran % (Auto) Neut % (Auto) Lymph % (Auto) P[place] % (Auto) Eos % (Auto) Baso % (Auto) Lymph # (Auto) Pinal # (Auto) Eos # (Auto) Baso # (Auto) Abs Immat Gran (auto) Absolute Neuts (auto) Absolute Nucleated RBC 0.020 H Nucleated RBC % (auto) 0.2 ESR Anion Gap 14 Estim Creat Clear Calc 87.6 Estimated GFR > 60 POC Glucose Random Glucose 129 H Estimat Average Glucose Hemoglobin A1c % Lactic Acid Lactic Acid F/U @ 2Hr Calcium 8.2 L D Magnesium Total Bilirubin AST ALT Alkaline Phosphatase C-Reactive Protein Total Protein Albumin Ethyl Alcohol Assessment and Plan (1) Alcohol withdrawal: Status: Acute Plan 69M PMH alcohol dependence, coronary artery disease, persistent AFib on Pradaxa, chronic osteomyelitis of 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 intake, IV fluids Lactic acidosis Due to poor intake, not sepsis Acute hypomagnesemia Due to alcohol, replace and monitor Diabetes Insulin EMIL Noncompliant with CPAP Persistent atrial fibrillation Continue metoprolol, digoxin, Pradaxa Coronary disease Continue Pradaxa, statin DVT prophylaxis-on Pradaxa Full code reason for continued hospitalization: Withdrawal, IV antibiotics for cellulitis Quality Stroke Does the patient have a stroke diagnosis?: No VTE Prior VTE?: No VTE Risk Level:: Medical - moderate - high VTE Device Contraindication: Treatment Not Indicated VTE Drug Contraindication: N/A - Med Ordered
--- NOTE | 2024-07-09 09:06 | MHC.CM.PN ---
CM met with Patient at bedside and addressed IMM with him, providing Patient with the original and a copy has been placed on the chart. Patient lives alone in a house and he is active with [facility]; home/resume said services is Patient's goal and CM has initiated and will follow for dc planning. PCP is Dr. Nikole Mauricio and the HCP is Brother/Danyel. Patient will need shuttle vs Lyft for transport to home;He has a prosthetic for his (L) BKA.
[2024-07-09] MEDS: Thiamine HCL 100 MG in 0.9 % Sodium Chloride 100 ML 202 MG IV (10:31)
[2024-07-09] MEDS: metroNIDAZOLE 0.75 % Gel 45 GM TUBE 1 APPL TOPICAL ×2 (11:27→21:16)
[2024-07-09] MEDS: Folic Acid 1 MG in 0.9 % Sodium Chloride 50 ML 100.4 MG IV (11:28)
[2024-07-09 11:33] LABS: Glucose, Whole Blood 135 mg/dL (60-115)
[2024-07-09 16:23] LABS: Glucose, Whole Blood 149 mg/dL (60-115)
[2024-07-09 20:52] LABS: Glucose, Whole Blood 117 mg/dL (60-115)
[2024-07-09] MEDS: Atorvastatin Calcium 20 MG TABLET PO (21:15)
[2024-07-10] VITALS (7 sets, daily range): BP systolic 130–154; BP diastolic 64–93; PULSE 68–80; RESP 14–20; TEMP 36.4–37; O2SAT 92–98
[2024-07-10] MEDS: Piperacillin Sodium/Tazobactam 4.5 GM in 0.9 % Sodium Chloride 100 ML IV ×4 (02:54→20:36)
[2024-07-10] MEDS: Linezolid/D5W 600 MG/300 ML PIGGYBACK 300 MG IV ×2 (05:45→18:14)
[2024-07-10 07:01] LABS: Hematocrit 36.7 % (42.0-52.0); Hemoglobin 12.2 g/dl (14.0-18.0); Mean Corpuscular HGB Conc 33.2 g/dl (31.0-36.0); Mean Corpuscular Hemoglobin 31.8 pg (27.0-33.0); Mean Corpuscular Volume 95.6 fL (80.0-98.0); Mean Platelet Volume 10.2 fL (9.4-12.4); NRBC Pct Auto 0.3 /100WBC (0.0-0.2); Platelet Count 288 X10*3/uL (160-400); Red Blood Count 3.84 X10*6/uL (4.60-5.80); Red Cell Distribution Width 14.8 % (11.0-16.0); White Blood Count 6.9 X10*3/uL (4.8-10.8)
[2024-07-10 07:08] LABS: Anion Gap 13 (12-20); Blood Urea Nitrogen 13 mg/dL (9-16); Calcium 7.9 mg/dL (8.4-10.2); Carbon Dioxide 23 mmol/L (22-29); Chloride 106 mmol/L (96-108); Creatinine Clr Calc Pharmacy 94.2; Estimated Glomerular Filt Rate > 60; Glucose Random 122 mg/dL (60-115); Magnesium 1.5 mg/dL (1.6-2.6); Potassium 3.6 mmol/L (3.3-5.1); Sodium 138 mmol/L (135-145)
[2024-07-10 08:09] LABS: Glucose, Whole Blood 120 mg/dL (60-115)
[2024-07-10] MEDS: Multivitamin TABLET 1 TAB PO (09:13)
[2024-07-10] MEDS: NaPROXEN 500 MG TABLET PO ×2 (09:13→20:31)
[2024-07-10] MEDS: PHENobarbitaL 30 MG TABLET 60 MG PO ×2 (09:13→20:32)
[2024-07-10] MEDS: DULoxetine HCl 60 MG CAPSULE.DR PO (09:14)
[2024-07-10] MEDS: allopurinoL 100 MG TABLET 200 MG PO (09:14)
[2024-07-10] MEDS: busPIRone HCl 10 MG TABLET PO ×2 (09:14→20:33)
[2024-07-10] MEDS: Digoxin 0.125 MG TABLET PO (09:14)
[2024-07-10] MEDS: buPROPion HCl XL 150 MG TAB.ER.24H PO (09:14)
[2024-07-10] MEDS: Dabigatran Etexilate Mesylate 150 MG CAPSULE PO ×2 (09:14→20:33)
[2024-07-10] MEDS: Ascorbic Acid 500 MG TABLET PO (09:14)
[2024-07-10] MEDS: Metoprolol Tartrate 50 MG TABLET PO ×2 (09:14→20:32)
[2024-07-10] MEDS: dilTIAZem HCL CD 180 MG CAP.ER.24H PO (09:14)
[2024-07-10] MEDS: metroNIDAZOLE 0.75 % Gel 45 GM TUBE 1 APPL TOPICAL ×2 (09:15→20:41)
[2024-07-10] MEDS: Magnesium Sulfate/H2O 2 GM/50 ML PIGGYBACK IV (09:51)
[2024-07-10] MEDS: 0.9 % Sodium Chloride Flush 3 ML SYRINGE IVFLUSH ×3 (09:54→20:37)
--- NOTE | 2024-07-10 10:46 | MHC.CM.PN ---
Per ROUNDS discussion, Patient is not yet medically cleared for dc (2 IV ABT/Cellulitis, ETOH Withdrawal); home/resume [facility] is the goal and CM will continue to follow.
[2024-07-10 11:47] LABS: Glucose, Whole Blood 149 mg/dL (60-115)
[2024-07-10] MEDS: Thiamine HCL 100 MG in 0.9 % Sodium Chloride 100 ML 202 MG IV (12:18)
--- NOTE | 2024-07-10 14:39 | P.PNIM_ITS ---
Subjective Subjective Date of Service: 07/10/24 Interval History: Seen and evaluated this morning Feels little better denies fever or chills erythema and swelling RLE extremity no other events Review of Systems Review of Systems: Yes all other systems are reviewed and are negative Physical Exam 2 Vital Signs: Vital Signs: Last Vital Signs Temp 97.6 F 07/10/24 11:53 Pulse 68 07/10/24 11:53 Resp 18 07/10/24 11:53 BP 142/85 H 07/10/24 11:53 Pulse Ox 98 07/10/24 11:53 O2 Del Method Room Air 07/10/24 11:53 BMI result Body Mass Index 29.8 Const: Other: Constitutional : Awake, interactive, not in distress Neck : Normal inspection, Supple Cardiovascular : irregular irregular, no JVP, no lower extremity edema Respiratory : good bilateral air entry, no crackles, wheezes or rhonchi Gastrointestinal: soft, lax, Normal bowel sounds, Non tender Skin : Warm, Dry, erythema and swelling RLE extremity with small open wounds , Athlete foot Neurological : Alert & oriented x3, No focal deficit Objective Data Active Medications Acetaminophen (Acetaminophen 325 Mg Tablet) 650 mg PO Q6H PRN PRN Reason: Pain, Mild 1-3,fever,headache Allopurinol (Allopurinol 100 Mg Tablet) 200 mg PO DAILY [facility] Last Admin: 07/10/24 09:14 Dose: 200 mg Documented By: CARLIE Ascorbic Acid (Ascorbic Acid 500 Mg Tablet) 500 mg PO DAILY [facility] Last Admin: 07/10/24 09:14 Dose: 500 mg Documented By: CARLIE Atorvastatin Calcium (Atorvastatin Calcium 20 Mg Tablet) 20 mg PO BEDTIME [facility] Last Admin: 07/09/24 21:15 Dose: 20 mg Documented By: IRVING Bupropion HCl (Bupropion Hcl Xl 150 Mg Tab.Er.24h) 150 mg PO DAILY [facility] Last Admin: 07/10/24 09:14 Dose: 150 mg Documented By: CARLIE Buspirone HCl (Buspirone Hcl 10 Mg Tablet) 10 mg PO BID [facility] Last Admin: 07/10/24 09:14 Dose: 10 mg Documented By: CARLIE Calcium Carbonate (Calcium Carbonate 750 Mg Tab.Chew) 750 mg PO Q4H PRN PRN Reason: Heartburn Clotrimazole (Clotrimazole 1 % Cream 15 Gm Tube) 1 appl TOPICAL BID [facility]; Protocol Dabigatran (Dabigatran Etexilate Mesylate 150 Mg Capsule) 150 mg PO BID [facility] Last Admin: 07/10/24 09:14 Dose: 150 mg Documented By: CARLIE Dextrose (Dextrose 50 % 25 Gm/50 Ml Syringe) 25 gm IVPUSH Q15M PRN; Protocol PRN Reason: per Hypoglycemia Standing Ord. Digoxin (Digoxin 0.125 Mg Tablet) 0.125 mg PO DAILY [facility]; Protocol Last Admin: 07/10/24 09:14 Dose: 0.125 mg Documented By: CARLIE Diltiazem HCl (Diltiazem Hcl Cd 180 Mg Cap.Er.24h) 180 mg PO DAILY [facility]; Protocol Last Admin: 07/10/24 09:14 Dose: 180 mg Documented By: CARLIE Duloxetine HCl (Duloxetine Hcl 60 Mg Capsule.Dr) 60 mg PO DAILY [facility] Last Admin: 07/10/24 09:14 Dose: 60 mg Documented By: CARLIE Glucose (Glucose Gel 15 Gm Gel..Gram.) 15 gm PO Q15M PRN; Protocol PRN Reason: per Hypoglycemia Standing Ord. Piperacillin Sod/Tazobactam (Sod 4.5 gm/ Sodium Chloride) 100 mls @ 200 mls/hr IV Q6H [facility] Last Infusion: 07/10/24 09:56 Dose: Infused Documented By: CARLIE Thiamine HCl 100 mg/ Sodium (Chloride) 101 mls @ 202 mls/hr IV DAILY [facility] Last Infusion: 07/10/24 12:48 Dose: Infused Documented By: CARLIE Linezolid (Zyvox/D5w) 600 mg in 300 mls @ 300 mls/hr IV Q12H [facility] Last Infusion: 07/10/24 06:45 Dose: Infused Documented By: CARLIE Insulin Human Lispro (Insulin Lispro 100 Unit/Ml 3 Ml Vial) 0 unit SUBCUT QIDACHS [facility]; Protocol Last Admin: 07/10/24 11:50 Dose: Not Given Documented By: CARLIE Non-Admin Reason: No Insulin Coverage Magnesium Hydroxide (Milk Of Magnesia 30 Ml Oral.Susp) 30 ml PO DAILY PRN PRN Reason: Constipation Melatonin (Melatonin 3 Mg Tablet) 6 mg PO BEDTIME PRN PRN Reason: Insomnia Metoprolol Tartrate (Metoprolol Tartrate 50 Mg Tablet) 50 mg PO BID [facility]; Protocol Last Admin: 07/10/24 09:14 Dose: 50 mg Documented By: CARLIE Metronidazole (Metronidazole 0.75 % Gel 45 Gm Tube) 1 appl TOPICAL BID [facility] Last Admin: 07/10/24 09:15 Dose: 1 appl Documented By: CARLIE Multivitamins/Vitamin C (Multivitamin Tablet) 1 tab PO DAILY [facility] Last Admin: 07/10/24 09:13 Dose: 1 tab Documented By: CARLIE Naproxen (Naproxen 500 Mg Tablet) 500 mg PO BID [facility] Last Admin: 07/10/24 09:13 Dose: 500 mg Documented By: CARLIE Pharmacy Consult (Consult Rx Etoh Phenob Im/Po) 1 each MISCELLANE ONCE PRN; Protocol PRN Reason: Consult order Phenobarbital (Phenobarbital 30 Mg Tablet) 60 mg PO BID [facility] Stop: 07/10/24 21:01 Last Admin: 07/10/24 09:13 Dose: 60 mg Documented By: CARLIE Phenobarbital (Phenobarbital 30 Mg Tablet) 30 mg PO BID [facility] Stop: 07/12/24 21:01 Phenobarbital (Phenobarbital 30 Mg Tablet) 30 mg PO DAILY [facility] Stop: 07/14/24 09:01 Sodium Chloride (0.9 % Sodium Chloride Flush 3 Ml Syringe) 3 ml IVFLUSH QSHIFT [facility] Last Admin: 07/10/24 09:54 Dose: 3 ml Documented By: CARLIE Labs 07/10/24 06:32 07/10/24 06:32 Labs: Laboratory Results - last 24 hr 07/09/24 07/09/24 07/10/24 16:12 20:43 06:32 MCV 95.6 MCH 31.8 MCHC 33.2 RDW 14.8 Plt Count 288 MPV 10.2 Absolute Nucleated RBC 0.020 H Nucleated RBC % (auto) 0.3 H Anion Gap 13 Estim Creat Clear Calc 94.2 Estimated GFR > 60 POC Glucose 149 H 117 H Random Glucose 122 H Calcium 7.9 L Magnesium 1.5 L 07/10/24 07/10/24 08:05 11:42 MCV MCH MCHC RDW Plt Count MPV Absolute Nucleated RBC Nucleated RBC % (auto) Anion Gap Estim Creat Clear Calc Estimated GFR POC Glucose 120 H 149 H Random Glucose Calcium Magnesium Microbiology Microbiology Results: Microbiology 07/08/24 13:58 Blood Culture - Preliminary Blood - Venous No growth after 24 hours. 07/08/24 13:58 Blood Culture - Preliminary Blood - Venous No growth after 24 hours. 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 intake, DC IV fluids Lactic acidosis Due to poor intake, not sepsis Acute hypomagnesemia Due to alcohol, replace and monitor Diabetes Insulin EMIL Noncompliant with CPAP Persistent atrial fibrillation Continue metoprolol, digoxin, Pradaxa Coronary disease Continue Pradaxa, statin DVT prophylaxis-on Pradaxa Full code reason for continued hospitalization: Withdrawal, IV antibiotics for cellulitis Quality Stroke Does the patient have a stroke diagnosis?: No VTE Prior VTE?: No VTE Risk Level:: Medical - moderate - high VTE Device Contraindication: Treatment Not Indicated VTE Drug Contraindication: N/A - Med Ordered
[2024-07-10] MEDS: Clotrimazole 1 % Cream 15 GM TUBE 1 APPL TOPICAL ×2 (15:12→20:41)
--- NOTE | 2024-07-10 15:51 | HO.WOUND ---
Wound Consult: Initial 69yr old?male admitted to [facility] [place] on 07/08/24 - See progress notes and H&P for detailed history.? Wound consult placed for Right Lower Leg.? Patient agreeable to assessment and photo documentation.? Patient treats at outpt wound clinic here at [facility] and has VNA services at home. Recommend continue with outpt care in place. Buttock and posterior thighs - MASD and fungal dermatitis - provider to order antifungal - and recommend barrier cream. Left Leg Etiology: ?Diabetic wound ?Present on Admission Wound Bed: macerated and pink wound bed Drainage / Odor: none noted Edges: ? defined Delmi wound: ? intact No Induration, Fluctuance or Warmth noted Pain: denies Goals of Treatment: ? Foam dressing to protect and allow for moist wound healing Right Great Toe Etiology: ?Diabetic wound ?Present on Admission Wound Bed: dry pink wound bed Drainage / Odor: none noted Edges: ? defined Delmi wound: ? intact No Induration, Fluctuance or Warmth noted Pain: denies Goals of Treatment: ? Durafiber AG to for moisture management Right Ankle - stable yellow scab - no topical recommendations needed at this time. Right Rodriges Etiology: Venous wound ?Present on Admission Wound Bed: pink red moist wound beds Drainage / Odor: yellow drainage noted Edges: ? defined and macerated Delmi wound: ? intact No Induration, Fluctuance or Warmth noted Pain: denies Goals of Treatment: ? Durafiber AG to for moisture management Right Heel - Red pink intact dry remains blanhcable - dark scab stable and dry. Recommendations: 1. Turn and Reposition every 2 hours and as needed for patient comfort.? Use pillows or wedges to support off loading positions. 2. Off Load all bony prominences with use of pillows and heel boots if needed.? Apply Preventative foams where needed. ? 3. Monitor for incontinence and moisture control, use barrier creams when needed for prevention and treatment. 4. Provide adequate and supplemental nutrition.? 5. When applicable maintain blood glucose levels per Providers order. Left Posterior Knee - Cleanse with NS moist gauze, pat dry. Apply skin prep cover with foam dressing change every 3 days and PRN. Follow up out pt with prosthesis provider for fit check. Right Great Toe and Rodriges - Elevate lower leg off of bed surface with pillows. Cleanse with NS moist gauze, pat dry. Apply skin prep to periwound. Apply Durafiber AG to wound bed followed by ABD pad and gauze wrap. Change every other day. Buttock and Perineal - Cleanse with PH balances wipes, pat dry. Apply antifungal powder per provider orders. Follow with barrier cream to protect from moisture and friction. Re-consult wound care Nurse for wound deterioration or wound changes.
[2024-07-10 16:01] LABS: Glucose, Whole Blood 133 mg/dL (60-115)
[2024-07-10 20:21] LABS: Glucose, Whole Blood 142 mg/dL (60-115)
[2024-07-10] MEDS: Atorvastatin Calcium 20 MG TABLET PO (20:33)
[2024-07-11] MEDS: Melatonin 3 MG TABLET 6 MG PO (00:48)
[2024-07-11] MEDS: Acetaminophen 325 MG TABLET 650 MG PO (00:49)
[2024-07-11 01:48] VITALS: RESP 18
[2024-07-11 03:43] VITALS: BP 143/97; PULSE 66; RESP 18; TEMP 36.2; O2SAT 96
[2024-07-11] MEDS: Piperacillin Sodium/Tazobactam 4.5 GM in 0.9 % Sodium Chloride 100 ML IV ×2 (03:46→08:46)
[2024-07-11] MEDS: Linezolid/D5W 600 MG/300 ML PIGGYBACK 300 MG IV (05:45)
[2024-07-11 07:05] VITALS: BP 141/90; PULSE 90; RESP 16; TEMP 36.1; O2SAT 95
[2024-07-11 07:24] LABS: MANUAL DIFF FLAG NO
[2024-07-11 07:32] LABS: Basophils Absolute Auto 0.1 X10*3/uL (0.0-0.2); Basophils Percent Auto 1.2 % (0-2); Eosinophils Absolute Auto 1.1 X10*3/uL (0.0-0.4); Eosinophils Percent Auto 13.5 % (0-4); Hematocrit 36.6 % (42.0-52.0); Hemoglobin 12.7 g/dl (14.0-18.0); Imm Gran Abs Auto 0.02 X10*3/uL (0.00-0.03); Imm Gran Pct Auto 0.3 % (0.0-0.4); Lymphocytes Absolute Auto 0.9 X10*3/uL (1.2-4.9); Lymphocytes Percent Auto 11.5 % (20-40); Mean Corpuscular HGB Conc 34.7 g/dl (31.0-36.0); Mean Corpuscular Hemoglobin 33.2 pg (27.0-33.0); Mean Corpuscular Volume 95.6 fL (80.0-98.0); Mean Platelet Volume 10.4 fL (9.4-12.4); Monocytes Absolute Auto 0.6 X10*3/uL (0.1-1.2); Monocytes Percent Auto 8.2 % (2-11); Neutrophils Absolute Auto 5.1 x10*3/uL (2.0-8.3); Neutrophils Percent Auto 65.3 % (45-73); Platelet Count 266 X10*3/uL (160-400); Red Blood Count 3.83 X10*6/uL (4.60-5.80); Red Cell Distribution Width 14.8 % (11.0-16.0); White Blood Count 7.8 X10*3/uL (4.8-10.8)
[2024-07-11 07:45] LABS: Anion Gap 14 (12-20); Blood Urea Nitrogen 12 mg/dL (9-16); Calcium 8.3 mg/dL (8.4-10.2); Carbon Dioxide 22 mmol/L (22-29); Chloride 107 mmol/L (96-108); Creatinine Clr Calc Pharmacy 106.9; Estimated Glomerular Filt Rate > 60; Glucose Random 115 mg/dL (60-115); Potassium 3.7 mmol/L (3.3-5.1); Sodium 139 mmol/L (135-145)
[2024-07-11 07:45] LABS: Glucose, Whole Blood 130 mg/dL (60-115)
[2024-07-11] MEDS: Ascorbic Acid 500 MG TABLET PO (08:34)
[2024-07-11] MEDS: allopurinoL 100 MG TABLET 200 MG PO (08:34)
[2024-07-11] MEDS: Multivitamin TABLET 1 TAB PO (08:34)
[2024-07-11] MEDS: PHENobarbitaL 30 MG TABLET PO (08:34)
[2024-07-11] MEDS: Metoprolol Tartrate 50 MG TABLET PO (08:35)
[2024-07-11] MEDS: Digoxin 0.125 MG TABLET PO (08:35)
[2024-07-11] MEDS: DULoxetine HCl 60 MG CAPSULE.DR PO (08:35)
[2024-07-11] MEDS: dilTIAZem HCL CD 180 MG CAP.ER.24H PO (08:35)
[2024-07-11] MEDS: busPIRone HCl 10 MG TABLET PO (08:35)
[2024-07-11] MEDS: buPROPion HCl XL 150 MG TAB.ER.24H PO (08:36)
[2024-07-11] MEDS: Dabigatran Etexilate Mesylate 150 MG CAPSULE PO (08:36)
[2024-07-11] MEDS: metroNIDAZOLE 0.75 % Gel 45 GM TUBE 1 APPL TOPICAL (08:36)
[2024-07-11] MEDS: NaPROXEN 500 MG TABLET PO (08:44)
[2024-07-11] MEDS: Thiamine HCL 100 MG in 0.9 % Sodium Chloride 100 ML IV (08:52)
--- NOTE | 2024-07-11 09:50 | MHC.CM.PN ---
Per MD, Patient is medically cleared for dc to home today with services. Patient is active with [facility] for SN and [facility] has been notified of today's dc. Last IMM was addressed on 07/09/2024.
--- NOTE | 2024-07-11 09:54 | PM.DS ---
DS: Providers Provider Date of Service: 07/11/24 Date of admission: 07/08/24 15:46 Date of discharge: 07/11/24 Primary care physician: Nikole Mauricio MD Consults: 07/08/24 15:46 Consult to Wound Care Routine Reason for consultation: ulcers RLE, ?trench foot 07/08/24 16:07 Addiction Medicine Provider Routine Consulting Provider: Addiction Covering Reason for consultation: aud 07/09/24 09:12 Inpt - Recovery Team Routine Comment: Reason for consultation: MUKUND Hoyt DS: Diagnosis Discharge Diagnosis (1) Cellulitis: Status: Acute (2) Alcohol withdrawal: Status: Acute (3) Hypomagnesemia: Status: Acute (4) Venous stasis ulcers: Status: Acute (5) Cellulitis of right lower extremity: Status: Acute (6) Starvation ketoacidosis: Status: Acute (7) Lactic acidosis: Status: Acute DS: Summary Hospital Course Hospital Course: Admission note HPI 69-year-old male with history of CAD, persistent atrial fibrillation on Pradaxa, chronic osteomyelitis of the left lower extremity s/p left BKA, hypertension, hyperlipidemia, alcohol use disorder, a splenic marginal zone lymphoma s/p appendectomy, gout, BPH, mood disorder and [id number]-[id number] type 2 diabetes presented to the ED earlier today due to elevated blood pressure reported by home health aide. He has assistance from health aide/[facility] to assist with right lower extremity wounds which are chronic and noted his blood pressure was elevated. He reports compliance with his medications but he has been consuming alcohol on a regular basis. He does state that at 1 point he was drinking 1.75 L of alcohol and has cut back to 6 pack of beers and several nips, last consumed around 21:00 last night. He states the right lower extremity has been painful and has been oozing. As a result of the oozing, his dressing is often soaked through. He reports he does follow with [facility] and is on naltrexone but does not feel like this is enough. He also falls with several support groups. He denies any other substance use and does not smoke any cigarettes. He denies any fevers, chills. Hospital course The patient was treated inpatient for the following: # Acute right lower extremity cellulitis, Treated with Iv Zosyn and Zyvox. cultures remained negative. He has no hx of MRSA but MSSA in past. To be discharged on 1 week of Augmentin. Followed by wound care nurse who put recommendations added below. To follow with wound clinic as outpatient and continue care at home with VNA. # Athlete foot. Continue Clotrimazole cream # Alcohol dependence with acute withdrawal placed on Phenobarb protocol and Monitored with [facility] as he was seen by Addiction team: Patient plan to continue Naltrexone and follow as outpatient. # Starvation ketoacidosis, resolved with IVF # Lactic acidosis, Due to poor intake, not sepsis. resolved with fluids. # Acute hypomagnesemia, Due to alcohol, replace and corrected. Discharge plan Avoid alcohol , we advised you total abstinence from alcohol Continue Augmentin for 1 more week Clotrimazole cream for foot fungal infection Metronidazole cream for rosacea Wound care clinic follow up. Visiting nurses at home Time Attestation Discharge Coordination Time (in mins): 42 Quality: Safe Use of Opioids Does Pt have an Active Cancer Diagnosis on the Problem List?: No Quality: Stroke Does the patient have a stroke diagnosis?: No Physical Exam Vital Signs: Vital Signs: Last Vital Signs Temp 96.9 F 07/11/24 07:05 Pulse 90 07/11/24 07:05 Resp 16 07/11/24 07:05 BP 141/90 H 07/11/24 07:05 Pulse Ox 95 07/11/24 07:05 O2 Del Method Room Air 07/11/24 07:05 BMI result Body Mass Index 29.8 Const: Other: Constitutional : Awake, interactive, not in distress Neck : Normal inspection, Supple Cardiovascular : irregular irregular, no JVP, no lower extremity edema Respiratory : good bilateral air entry, no crackles, wheezes or rhonchi Gastrointestinal: soft, lax, Normal bowel sounds, Non tender Skin : Warm, Dry, significantyly improved erythema and swelling RLE extremity with small open wounds , Athlete foot , L BKA. Neurological : Alert & oriented x3, No focal deficit DS: Data Data Completed and Pending Completed studies during hospitalization [Text1]: Procedures Detoxification Services for Substance Abuse Treatment (03/16/24) Labs on day of discharge: Laboratory Results - last 24 hr 07/10/24 07/10/24 07/10/24 11:42 15:52 20:13 WBC RBC Hgb Hct MCV MCH MCHC RDW Plt Count MPV Immature Gran % (Auto) Neut % (Auto) Lymph % (Auto) Wetzel % (Auto) Eos % (Auto) Baso % (Auto) Lymph # (Auto) Wetzel # (Auto) Eos # (Auto) Baso # (Auto) Abs Immat Gran (auto) Absolute Neuts (auto) Absolute Nucleated RBC Nucleated RBC % (auto) Sodium Potassium Chloride Carbon Dioxide Anion Gap BUN Creatinine Estim Creat Clear Calc Estimated GFR POC Glucose 149 H 133 H 142 H Random Glucose Calcium 07/11/24 07/11/24 06:38 07:06 WBC 7.8 RBC 3.83 L Hgb 12.7 L Hct 36.6 L MCV 95.6 MCH 33.2 H MCHC 34.7 RDW 14.8 Plt Count 266 MPV 10.4 Immature Gran % (Auto) 0.3 Neut % (Auto) 65.3 Lymph % (Auto) 11.5 L Wetzel % (Auto) 8.2 Eos % (Auto) 13.5 H Baso % (Auto) 1.2 Lymph # (Auto) 0.9 L Wetzel # (Auto) 0.6 Eos # (Auto) 1.1 H Baso # (Auto) 0.1 Abs Immat Gran (auto) 0.02 Absolute Neuts (auto) 5.1 Absolute Nucleated RBC 0.000 Nucleated RBC % (auto) 0.0 Sodium 139 Potassium 3.7 Chloride 107 Carbon Dioxide 22 Anion Gap 14 BUN 12 Creatinine 0.82 Estim Creat Clear Calc 106.9 Estimated GFR > 60 POC Glucose 130 H Random Glucose 115 Calcium 8.3 L Preliminary micro results at discharge 07/08/24 13:58 Blood Culture - Preliminary Blood - Venous No growth after 48 hours. 07/08/24 13:58 Blood Culture - Preliminary Blood - Venous No growth after 48 hours. Imaging Chest x-ray: Radiologist's impression: ITS Impressions Tibia/Fibula X-Ray 07/08/24 13:29 IMPRESSION: Unremarkable examination of the right tibia and fibula. Electronically signed by: Ike Marrero MD 07/08/2024 02:58 PM EDT Discharge Plan Discharge Anticipated Discharge Date/Time: 07/11/24 09:40 Patient Disposition: Home Health Service Discharge Diagnosis: Cellulitis Alcohol withdrawal Referrals: Cherise BURGESS [Outside] - 1 Week Nikole Mauricio MD [Primary Care Provider] - 1 Week Discharge Medications: New clotrimazole 1 % Cream 1 appl topical BID Qty: 30 0RF Protocol: Apply to: Apply to: Foot and between toes Rx Instructions: apply to foot and between toes metronidazole 0.75 % Gel 1 appl topical BID Qty: 45 0RF amoxicillin-pot clavulanate 875-125 mg tablet 1 tab PO BID Qty: 14 0RF Continued (DME) blood pressure test kit-medium Kit See Rx Instructions .Route Qty: 1 0RF Rx Instructions: As directed to monitor BP at home (DME) bedside commode Kit See Rx Instructions .Route Qty: 1 0RF Rx Instructions: As directed ([facility] [place]) wheelchair-16 inch wide with removable footrests 16 inch wide See Rx Instructions .Route .MEDSUPPLY Qty: 1 0RF Rx Instructions: As directed dabigatran etexilate [Pradaxa] 150 mg capsule 150 mg PO BID 90 Days Qty: 180 3RF atorvastatin 20 mg tablet 20 mg PO BEDTIME 30 Days Qty: 90 3RF diltiazem HCl 180 mg capsule,ext.rel 24h degradable 180 mg PO DAILY 90 Days Qty: 90 3RF ascorbic acid (vitamin C) [Vitamin C] 500 mg tablet 500 mg PO DAILY Qty: 90 3RF folic acid 1 mg tablet 1 mg PO DAILY Qty: 90 3RF thiamine HCl (vitamin B1) 100 mg tablet 100 mg PO DAILY Qty: 90 3RF (DME) FreeStyle Lite Strips Strip See Rx Instructions .Route Qty: 100 3RF Rx Instructions: Test blood sugar QD (DME) lancets [FreeStyle Lancets] 28 gauge misc See Rx Instructions .Route Qty: 100 3RF Rx Instructions: Test blood sugar QD (DME) blood-glucose meter [FreeStyle Lite Meter] Kit See Rx Instructions .ROUTE .MEDSUPPLY Qty: 1 0RF Rx Instructions: As directed QD buspirone 10 mg Tablet 10 mg PO BID bupropion HCl 150 mg tablet extended release 24 hr 150 mg PO DAILY metoprolol tartrate 50 mg tablet 50 mg PO BID digoxin 125 mcg (0.125 mg) tablet 125 mcg PO DAILY naproxen 500 mg tablet 500 mg PO BID allopurinol 100 mg tablet 200 mg PO DAILY (DME) FreeStyle Erika 14 Day Sensor Kit See Rx Instructions .Route Qty: 1 4RF Rx Instructions: As directed multivitamin Tablet 1 tab PO DAILY duloxetine 60 mg capsule,delayed release(DR/EC) 60 mg PO DAILY naltrexone 50 mg tablet 50 mg PO DAILY Discharge Orders: Discharge Order (Routine); Ordered 07/11/24 Ordered By: Maria Esther Rodriguez Diet: Advance to usual diet Activity on Discharge: As tolerated Stand Alone Forms: Patient Portal Discharge page, Work/School Release Print Language: Nigerian Activity Restrictions/Additional Instructions: Left Posterior Knee - Cleanse with NS moist gauze, pat dry. Apply skin prep cover with foam dressing change every 3 days and PRN. Follow up out pt with prosthesis provider for fit check. Right Great Toe and Rodriges - Elevate lower leg off of bed surface with pillows. Cleanse with NS moist gauze, pat dry. Apply skin prep to periwound. Apply Durafiber AG to wound bed followed by ABD pad and gauze wrap. Change every other day. Buttock and Perineal - Cleanse with PH balances wipes, pat dry. Apply antifungal powder per provider orders. Follow with barrier cream to protect from moisture and friction. Care Plan Goals: Avoid alcohol , we advised you total abstinence from alcohol Continue Augmentin for 1 more week Clotrimazole cream for foot fungal infection Metronidazole cream for rosacea Wound care clinic follow up. Visiting nurses at home Health Concerns: Cellulitis open wounds Alcohol abuse Plan of Treatment: Antibiotics wound care Assessment: as above
== END 2024-07-11 11:15 | disposition home health service (06) | DRG 603 ==
LOC: HO.ED 13:59 → HO.IMC 16:24 → HO.EDOVER 17:03 → HO.IMC 19:11
PROVIDERS: Internal Medicine; Physician Assistant Medical; Admitting Provider Physician Assistant; Emergency Provider Emergency Medicine; PCP Internal Medicine; Visit Provider Student in an Organized Health Care Education/Training Program
DX: L03.115 Cellulitis of right lower limb (principal); F10.231 Alcohol dependence with withdrawal delirium; I48.19 Other persistent atrial fibrillation; B35.3 Tinea pedis; E11.9 Type 2 diabetes mellitus without complications; E83.42 Hypomagnesemia; I87.8 Other specified disorders of veins; L97.519 Non-pressure chronic ulcer of other part of right foot with unspecified severity; I25.10 Atherosclerotic heart disease of native coronary artery without angina pectoris; Y90.0 Blood alcohol level of less than 20 mg/100 ml; E88.89 Other specified metabolic disorders; Z89.512 Acquired absence of left leg below knee; Z79.01 Long term (current) use of anticoagulants; Z79.899 Other long term (current) drug therapy
CPT/HCPCS: 36415; 73590; 80048; 80053; 80307; 82947; 83036; 83605; 83735; 84484; 85025; 85027; 85652; 86140; 87040; 93005; 99285; J2020; J2543; J2560; J3411; J3475; S9485

== ENCOUNTER → 2024-07-08 13:09 | Outpatient (BNV) | payer MEDICARE, SELFPAY | PROVIDERS: Admitting Provider Physician Assistant; Emergency Provider Emergency Medicine; PCP Internal Medicine; Visit Provider Internal Medicine Cardiovascular Disease | DX: I48.91 Unspecified atrial fibrillation (principal); I25.2 Old myocardial infarction | CPT/HCPCS: 93010 ==

== ENCOUNTER → 2024-07-08 13:29 | Outpatient (BNV) | payer MEDICARE, SELFPAY | PROVIDERS: Emergency Provider Emergency Medicine; PCP Internal Medicine; Visit Provider Radiology Diagnostic Radiology | DX: M79.661 Pain in right lower leg (principal) | CPT/HCPCS: 73590 ==

== ENCOUNTER → 2024-07-08 15:46 | Outpatient (BNV) | payer MEDICARE, SELFPAY | PROVIDERS: Admitting Provider Physician Assistant; Emergency Provider Emergency Medicine; PCP Internal Medicine; Visit Provider Physician Assistant | DX: I83.009 Varicose veins of unspecified lower extremity with ulcer of unspecified site (principal); F10.939 Alcohol use, unspecified with withdrawal, unspecified; L03.90 Cellulitis, unspecified; E83.42 Hypomagnesemia; L97.909 Non-pressure chronic ulcer of unspecified part of unspecified lower leg with unspecified severity; L03.115 Cellulitis of right lower limb; T73.0XXA Starvation, initial encounter; E87.29 Other acidosis; E87.20 Acidosis, unspecified | CPT/HCPCS: 99223; 99233; 99239 ==

== ENCOUNTER 2024-07-20 09:44 | Emergency (ER) | payer MEDICARE, SELFPAY ==
--- NOTE | 2024-07-20 09:48 | ED.EXTPRO ---
HPI - Extremity Problem General Chief complaint: Skin/Abscess/Foreign Body Stated complaint: INFECTION L LEG Time Seen by Provider: 07/20/24 10:12 Source: patient Mode of arrival: ambulatory Limitations: no limitations History of Present Illness ED Provider: jeannine gonzalez np HPI Narrative: Patient is a 69-year-old male with past medical history of left BKA, depression, hypertension, hyperlipidemia, diabetes, alcohol use disorder, CAD, GERD, paroxysmal atrial fibrillation not on Pradaxa, splenic marginal zone B-cell lymphoma, prior appendectomy who presents emergency department for evaluation of a rash to the posterior left knee. He reports onset a few days ago. Admits that just prior he was doing a lot of walking around at the [facility], he was wearing his prosthesis without a knee skin guard/barrier to the stump and feels that this is irritated the skin. He currently is receiving visiting nurse services for right lower extremity cellulitis, just had dressing changes today, reports with this is healing well, is just finishing up his course of antibiotics. Denies any fevers or chills. Related Data Home Medications ?Medication ?Instructions ?Recorded ?Confirmed duloxetine 60 mg capsule,delayed 60 mg PO DAILY 12/21/19 07/16/24 release multivitamin 1 tab PO DAILY 02/27/20 07/16/24 allopurinol 100 mg tablet 200 mg PO DAILY 02/08/21 07/16/24 naltrexone 50 mg tablet 50 mg PO DAILY Alcohol Withdrawal 08/24/22 07/16/24 bupropion HCl 150 mg 24 hr tablet, 150 mg PO DAILY 06/01/23 07/16/24 extended release buspirone 10 mg tablet 10 mg PO BID 10/06/23 07/16/24 digoxin 125 mcg (0.125 mg) tablet 125 mcg PO DAILY 07/08/24 07/16/24 metoprolol tartrate 50 mg tablet 50 mg PO BID 07/08/24 07/16/24 naproxen 500 mg tablet 500 mg PO BID 07/08/24 07/16/24 Previous Rx's ?Medication ?Instructions ?Recorded flash glucose sensor (FreeStyle #1 ea 07/14/22 Erika 14 Day Sensor kit) blood pressure test kit-medium #1 ea 08/03/22 commode (bedside commode) #1 ea 09/29/23 wheelchair-16 inch wide with #1 ea 09/29/23 removable footrests atorvastatin 20 mg tablet 20 mg PO BEDTIME 30 days #90 tabs 02/29/24 dabigatran etexilate 150 mg 150 mg PO BID 90 days #180 caps 02/29/24 capsule (Pradaxa) diltiazem HCl 180 mg 180 mg PO DAILY 90 days #90 caps 02/29/24 capsule,extended release 24 hr, controlled ascorbic acid (vitamin C) 500 mg 500 mg PO DAILY #90 tabs 03/05/24 tablet (Vitamin C) folic acid 1 mg tablet 1 mg PO DAILY #90 tabs 03/05/24 thiamine HCl (vitamin B1) 100 mg 100 mg PO DAILY #90 tabs 03/05/24 tablet blood sugar diagnostic (FreeStyle #100 ea 05/03/24 Lite Strips) blood-glucose meter (FreeStyle #1 ea 05/03/24 Lite Meter kit) lancets 28 gauge (FreeStyle #100 ea 05/03/24 Lancets) amoxicillin 875 mg-potassium 1 tab PO BID #14 tabs 07/11/24 clavulanate 125 mg tablet clotrimazole 1 % topical cream 1 appl topical BID #30 grams 07/11/24 metronidazole 0.75 % topical gel 1 appl topical BID #45 grams 07/11/24 hydrocortisone valerate 0.2 % 1 appl topical BID PRN rash #15 07/20/24 topical ointment grams Allergies Allergy/AdvReac Type Severity Reaction Status Date / Time vancomycin [VANCOMYCIN] Allergy Severe ANGIOEDEMA Verified 07/20/24 09:58 Sulfa (Sulfonamide Allergy Intermediate Rash Verified 07/20/24 09:58 Antibiotics) sulfamethoxazole Allergy rash Verified 07/20/24 09:58 [From Bactrim] trimethoprim [From Bactrim] Allergy Rash Verified 07/20/24 09:58 Review of Systems Review of Systems: Yes all other systems are reviewed and are negative PMFSH Past Medical History Attestation statement: The following information was validated with the patient. Source: old records reviewed Medical History Venous stasis ulcers Alcohol withdrawal PAF (paroxysmal atrial fibrillation) Weakness Rosacea Annual physical exam Depression Essential hypertension Hyperlipidemia LDL goal <100 Obesity due to excess calories BMI 30.0-30.9,adult ETOH abuse BPH associated with nocturia CAD (coronary artery disease) Long-term current use of intravenous immunoglobulin (IVIG) GERD (gastroesophageal reflux disease) Hypogammaglobulinemia Diabetic eye exam Adjustment disorder Gout Chronic osteomyelitis Splenic marginal zone b-cell lymphoma EMIL (obstructive sleep apnea) Surgical History Status post below-knee amputation of left lower extremity Osteomyelitis Osteomyelitis History of esophagogastroduodenoscopy (EGD) History of colonoscopy History of bunionectomy History of cardiac cath Family History Family History Father Diabetes Mother Liver cancer Maternal Grandfather CVD (cardiovascular disease) Brother Myocardial infarction Social History Social History Household Members: None Housing: House Do you presently have visiting nurse or other home services: Yes Alcohol intake: current Alcohol intake frequency: 3 or more drinks per day Alcohol type: beer Comment: sitter in room / video Patient Tobacco Use Status: Never used Tobacco e-Cigarette/Vaping Use: Never Used Second Hand Smoke Exposure: No Advance Directives Date on File: 10/10/23 service: No Current occupational status: employed 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 No acute distress.?Normal affect. CVS: Heart sounds normal. Normal heart rate and rhythm.? Pulses normal.?? Respiratory: No respiratory distress.? Lung sounds clear to auscultation bilaterally?? Abdomen: Soft and non-tender. Normoactive bowel sounds. Skin: Skin warm and dry.? Normal skin color.? The Flexeril surface of the left posterior knee as erythematous plaque-like presentation that is dry and cracked Extremities: No lower extremity edema. Left BKA Neuro: Moves all extremities spontaneously. Sensation intact bilaterally. Ambulates with normal steady gait. Medical Decision Making Medical Decision Making MDM Narrative: Patient is a 69-year-old male with past medical history of left BKA, depression, hypertension, hyperlipidemia, diabetes, alcohol use disorder, CAD, GERD, paroxysmal atrial fibrillation not on Pradaxa, splenic marginal zone B-cell lymphoma, prior appendectomy who presents emergency department primary concern for a rash to the flexor surface of the left knee after persistent contact with his prosthesis and no skin protection. On appearance seems most consistent with a contact dermatitis, does not pruritic, not moist, no satellite lesions to suggest fungal etiology. At this time seems most consistent with contact dermatitis for which I will provide a topical steroid cream to apply to this area. Of note, patient was seen in the emergency department 07/08/2024 for alcohol use disorder, noted right lower extremity cellulitis at that time, had x-ray of the right tib-fib without evidence of osseous abnormality, he was treated with IV Zosyn and p.o. doxycycline, he was admitted to medicine service and discharged on 07/11/2024 discharged home with 1 week of Augmentin as well as clotrimazole for athlete's foot and [facility] to follow-up on wound care. On evaluation of the right lower extremity appears to be healing in comparison to his prior visit, patient offers no concerns that this has worsened by any means and does agree that in fact it appears improved. Would not recommend any change to the course of treatment for this. Differential Diagnosis Differential Diagnoses: The differential diagnosis associated with the presentation includes (See narrative above) Independent Historian Clinical information obtained from an independent historian. History obtained from or confirmed by: EMS External Record Review External record reviewed: Outpatient record Prescription Management I considered prescription management with: Other (See narrative above) Chronic Conditions Patient?s care impacted by: Other (See narrative above) Discharge Plan Discharge Clinical Impression: Contact dermatitis Patient Disposition: Home, Self-Care Instructions: Contact Dermatitis (ED) Additional Instructions: Be certain that you are using a barrier/skin guard to the stump when wearing your prosthesis to prevent irritation to the skin. I have sent a prescription for a steroid cream to the pharmacy to apply twice daily. Do not use for more than 2 weeks. Follow-up with primary care doctor. Return with new or worsening symptoms or concerns. Prescriptions: New hydrocortisone valerate 0.2 % ointment 1 appl topical BID PRN (Reason: rash) Qty: 15 0RF No Action (DME) blood pressure test kit-medium Kit See Rx Instructions .Route Qty: 1 0RF Rx Instructions: As directed to monitor BP at home (DME) bedside commode Kit See Rx Instructions .Route Qty: 1 0RF Rx Instructions: As directed (DME) wheelchair-16 inch wide with removable footrests 16 inch wide See Rx Instructions .Route .MEDSUPPLY Qty: 1 0RF Rx Instructions: As directed dabigatran etexilate [Pradaxa] 150 mg capsule 150 mg PO BID 90 Days Qty: 180 3RF atorvastatin 20 mg tablet 20 mg PO BEDTIME 30 Days Qty: 90 3RF diltiazem HCl 180 mg capsule,ext.rel 24h degradable 180 mg PO DAILY 90 Days Qty: 90 3RF ascorbic acid (vitamin C) [Vitamin C] 500 mg tablet 500 mg PO DAILY Qty: 90 3RF folic acid 1 mg tablet 1 mg PO DAILY Qty: 90 3RF thiamine HCl (vitamin B1) 100 mg tablet 100 mg PO DAILY Qty: 90 3RF (DME) FreeStyle Lite Strips Strip See Rx Instructions .Route Qty: 100 3RF Rx Instructions: Test blood sugar QD (DME) lancets [FreeStyle Lancets] 28 gauge misc See Rx Instructions .Route Qty: 100 3RF Rx Instructions: Test blood sugar QD (DME) blood-glucose meter [FreeStyle Lite Meter] Kit See Rx Instructions .ROUTE .MEDSUPPLY Qty: 1 0RF Rx Instructions: As directed QD buspirone 10 mg Tablet 10 mg PO BID bupropion HCl 150 mg tablet extended release 24 hr 150 mg PO DAILY metoprolol tartrate 50 mg tablet 50 mg PO BID digoxin 125 mcg (0.125 mg) tablet 125 mcg PO DAILY naproxen 500 mg tablet 500 mg PO BID clotrimazole 1 % Cream 1 appl topical BID Qty: 30 0RF Protocol: Apply to: Apply to: Foot and between toes Rx Instructions: apply to foot and between toes metronidazole 0.75 % Gel 1 appl topical BID Qty: 45 0RF amoxicillin-pot clavulanate 875-125 mg tablet 1 tab PO BID Qty: 14 0RF allopurinol 100 mg tablet 200 mg PO DAILY (DME) FreeStyle Erika 14 Day Sensor Kit See Rx Instructions .Route Qty: 1 4RF Rx Instructions: As directed multivitamin Tablet 1 tab PO DAILY duloxetine 60 mg capsule,delayed release(DR/EC) 60 mg PO DAILY naltrexone 50 mg tablet 50 mg PO DAILY Referrals: Nikole Mauricio MD [Primary Care Provider] - Print Language: Yakut
[2024-07-20 09:52] VITALS: BP 146/66; PULSE 77; RESP 16; TEMP 36.3; O2SAT 98
[2024-07-20 09:55] VITALS: BP 150/90; PULSE 61; O2SAT 97; BMI 30.2
[2024-07-20 10:00] VITALS: BP 137/53; PULSE 77; RESP 16; TEMP 36.6; O2SAT 99
--- OUTSIDE RECORDS SUMMARY | 2024-07-20 10:14 | XMS_ITS | Data Portability ---
Author Organization [facility], Main Office Address [address] [facility] [place] [address] Care Team Providers Care Tractor Technician Name Role Phone DONOVAN DONATO - 2ND FLOOR OTHER ZANE MAURICIO Primary Care Provider [phone] Assessment Encounter Date Assessment Date Assessment LastModified [...] Organization Details Recorded Time Atrial fibrillatio n 85396637 Active 2023 JAVY MABRY NP [address] [facility], [address], [place], [address], [facility] [employer] 4 14:46:48 Osteomyelit is 77020558 Active 2023 JAVY MABRY NP [address] [facility], [address], [place], [address], [facility] [employer] 4 14:46:56 Open wound of skin 303701408082 Active 2023 JOSH MABRY NP [address] [facility], [address], [place], [address], [facility] [employer] 4 14:47:21 Essential hypertensio n 97640269 Active 2023 JAVY MABRY NP [address] [facility], [address], [place], [address], [facility] 4 14:47:31 Hyperlipide pablo 40792005 Active 2023 JAVY MABRY NP [address] 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, [address], [place], [address], [facility] 4 14:47:58 Falls 193254876 Active 2023 JAVY MABRY NP [address] [facility], [address], [place], [address], [facility] 4 14:53:49 Type 2 diabetes mellitus 89220882 Active 2023 JAVY MABRY NP [address] 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, [address], [place], [address], [facility] 4 10:17:07 Benign prostatic hyperplasia without outflow obstruction 159034202 Active 2023 Jatin Landis MD [address] [place] [address], [address], [place], [address], [facility] 4 10:17:13 Problem Notes None recorded. Medical Equipment None Reported. Allergies Allergen ID Allergen Name Allergen Category Reaction Reaction Severity Criticality Documentation Date Start Date Code Code System Note Provider Name and Address Organization Details Recorded Time 66984 Bactrim medicatio n Not available Not available Not available 03/23/2024 11931 9 RxNorm Not Available Not Available Not Available 36112 vancomyci n medicatio n Not available Not available Not available 03/23/2024 28311 RxNorm Not Available Not Available Not Available Medications Not known to be on any medication Vitals Date Recorded Body weight Heart rate Respiratory rate Body temperature Oxygen saturation Oxygen saturation in Arterial blood by Pulse oximetry Systolic blood pressure Diastolic blood pressure Provider Name and Address Organization Details Last Updated DateTime 4 25590.9 2 g 74 /min 16 /min 97.1 [degF] 97 % 97 % 102 mm[Hg] 65 mm[Hg] JAVY MABRY NP [address] [facility] [address], [place], [address], [facility] 4 14:45:21 Date Recorded Body weight Heart rate Respiratory rate Body temperature Oxygen saturation Oxygen saturation in Arterial blood by Pulse oximetry Systolic blood pressure Diastolic blood pressure Provider Name and Address Organization Details Last Updated DateTime 5 98132.4 4 g 67 /min 18 /min 97.4 [degF] 98 % 98 % 150 mm[Hg] 80 mm[Hg] Jasmin La NP [address] [facility] [address], [place], [address], [facility] 5 16:11:23 Date Recorded Body weight Heart rate Respiratory rate Body temperature Oxygen saturation Oxygen saturation in Arterial blood by Pulse oximetry Systolic blood pressure Diastolic blood pressure Provider Name and Address Organization Details Last Updated DateTime 5 66955 g 82 /min 16 /min 97.2 [degF] 95 % 95 % 134 mm[Hg] 60 mm[Hg] Jasmin La NP [address] [facility] [address], [place], [address], [facility] 5 20:25:18 Date Recorded Body weight Heart rate Respiratory rate Body temperature Oxygen saturation Oxygen saturation in Arterial blood by Pulse oximetry Systolic blood pressure Diastolic blood pressure Provider Name and Address Organization Details Last Updated DateTime 5 29716 g 76 /min 18 /min 97.8 [degF] 99 % 99 % 126 mm[Hg] 71 mm[Hg] Jasmin La NP [address] [facility], [address], [place], [address], [facility] 5 09:45:11 Date Recorded Systolic blood pressure Diastolic blood pressure Provider Name and Address Organization Details Last Updated DateTime 03/25/2024 112 mm[Hg] 78 mm[Hg] Jatin Landis MD [address] [facility], [address], [place], [address], [facility] 03/25/2024 10:06:23 Social History Question Answer Notes LastModified by Organizat ion Details LastModified Time Tobacco Smoking Status Never Smoker JAVY MABRY NP [address] [facility], [address], [place], [address], [facility] [employer] [facility] 03/23/2024 14:49:48 Do You Have [...] virus (RSV), unspecified 3 completed Eulalia Chandra [facility] 03/26/2024 14:51:00 Hep B, unspecified formulation 8 completed Eulalia brasher [facility] 03/26/2024 14:51:16 Tdap 5 completed Eulalia Chandra [facility] 03/26/2024 14:51:30 Pneumococcal conjugate PCV 13 3 completed Eulalia brasher [facility] 03/26/2024 14:55:05 pneumococcal polysaccharide PPV23 6 gissel brasher [facility] 03/26/2024 14:55:34 pneumococcal polysaccharide PPV23 6 completed Eulalia Prateek [facility], [facility] 03/26/2024 14:55:41 influenza, unspecified formulation 2 completed Eulalia Prateek null, [facility] 03/26/2024 14:56:07 influenza, unspecified formulation 3 completed Eulalia Prateek null, [facility] 03/26/2024 14:56:17 influenza, unspecified formulation 4 completed Eulalia Prateek null, [facility] 03/26/2024 14:56:27 meningococcal ACWY, unspecified formulation 9 completed Eulalia Prateek null, [facility] 03/26/2024 14:56:54 SARS-COV-2 (COVID-19) vaccine, UNSPECIFIED 1 completed Eulalia Prateek null, [facility] 03/26/2024 14:57:07 SARS-COV-2 (COVID-19) vaccine, UNSPECIFIED 1 completed Eulalia Prateek null, [facility] 03/26/2024 14:57:15 SARS-COV-2 (COVID-19) vaccine, UNSPECIFIED 1 completed Eulalia Prateek null, [facility] 03/26/2024 14:57:24 SARS-COV-2 (COVID-19) vaccine, UNSPECIFIED 2 completed Eulalia Prateek null, [facility] 03/26/2024 14:57:32 SARS-COV-2 (COVID-19) vaccine, UNSPECIFIED 2 completed Eulalia Prateek null, [facility] 03/26/2024 14:57:40 SARS-COV-2 (COVID-19) vaccine, UNSPECIFIED 3 completed Eulalia Prateek null, [facility] 03/26/2024 14:57:48 zoster, unspecified formulation 3 completed Eulalia Prateek null, [facility] 03/26/2024 14:58:02 zoster, unspecified formulation 3 completed Eulalia Prateek null, [facility] 03/26/2024 14:58:10 Past Encounters Encounter ID Performer Location Encounter Start Date Encounter Closed Date Diagnosis/Indication Diagnosis SNOMED-CT Code Diagnosis ICD10 Code Diagnosis Note [id number] JAVY MABRY NP [facility] [address] 03/23/2024 14:38:33 03/25/2024 12:39:17 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 monitor for any signs of withdrawlf olic 1 mg dailyNaltr exone 60 mg dailyThiam ine 100 mg dailyMag ox 400 mg dailymvi dailyVit C 500 dailyBuspa r 10 mg bidCymbalt a 60 mg dailyWellb utrin 150 mg daily Osteomyelitis 87686533 M 86.9 Doxycyline 100 mg bid to 03/25monit or for any signs of infections [place] [address]5790 01 T14.8XXA Doxycyline 100 mg bid to 30monit or for any signs of infections wound consult [place] 158895957 R29.6 PTOT eval and treatfall precaution sfrequent safety checks Atrial fibrillation 4943 6004 I48.91 Diltiazem er 180 mg dailyMetop rolol 25 mg bidmonitor heart rate Essential hypertension 17743541 I10 Diltiazem er 180 mg dailyMetop rolol 25 mg bidmonitor bp Hyperlipidemia 56311108 E78.5 atorvastat in 20 mg daily Type 2 dylon betes mellitus 37357913 E11.9 monitor glucose [id number] Jatin Landis MD [facility] [address] 03/25/2024 10:05:56 03/26/2024 13:18:46 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 nitor need for increased support in community Osteomyelitis 52146392 M 86.052 carrying dx left chronic osteo at bka sitestarte d empiricall y on doxy through 03/25repea t cbcID / ortho eval prnmonitor siteupdate ortho with concerns Open wound of skin 55985 04534 01 T14.8XXA see above with chronic infection Atrial fibrillation 4943 6004 I48.0 pradaxa 150 mg bidmetopro lol 25 mg bidmonitor for rate control Essential hypertension 96059936 I10 Diltiazem 180 mg qdlisinopr il 10 mg qdMetoprol ol 25 mg bidmonitor bp and need to titrate Hyperlipidemia 89583185 E78.2 lipitor 20 mg qdcontinue d Type 2 ydlon betes mellitus 13811276 E11.9 diet controlled now off metforminm ost recent hba1c wnrmonitor accucheck prn Asthenia 98875223 R53.1 weakness and gait instabilit yPT OT Eval and treatmonit or fall risk and need for increased support in community Marginal z one lymphoma 696919941 C83.07 carrying dx added to PMHlimited informatio n availabler equest prior notes from PCP Benign pro static hyperplasia without outflow obstruction 621828849 N40.0 added to PMHmonitor for retention [id number] Jasmin La NP [address] [address] 03/28/2024 16:08:27 03/29/2024 11:48:40 Harmful pattern of use of alcohol 91472661 F10.132 see HPInaltrex one 50 mg po qdcontinue d on thiamine and supplement seval'd by addiction services in [facility] work to [facility] need for increased support in community Osteomyelitis 62229550 M 86.052 carrying dx left chronic osteo at bka sitecomple nori doxy empiricall y through 03/25ID / ortho eval prnmonitor siteupdate ortho with concerns Open wound of skin 85636 93800 01 T14.8XXA see above with chronic infection Asthenia 76434387 R53.1 weakness and gait instabilit yPT OT Eval and treatmonit or fall risk and need for increased support in community Atrial fibrillation 4943 6004 I48.0 contpradax a 150 mg bidmetopro lol 25 mg bidmonitor for rate control Essential hypertension 96314888 I10 controlled contDiltia zem 180 mg qdlisinopr il 10 mg qdMetoprol ol 25 mg bidmonitor bp and need to titrate Hyperlipidemia 02553777 E78.2 lipitor 20 mg qdcontinue d Type 2 dylon betes mellitus 99251348 E11.9 diet controlled , reportedha d low BS in hospital with possible low BS related to skin conditionn ow off metforminm ost recent hba1c wnrmonitor accucheck prn Marginal z one lymphoma 779334427 C83.07 with hx oflimited informatio n availablef u with oncology 04/05 Atopic dermatitis 284098 01 L20.9 pt with notable scab like [...] cular 04/11 @ 13pm. Rheumatoid arthritis 698 42356 M06.9 he denies arthritis today however has likely underlying arthritisf u with Rheumatoid appt with Dr Hart 07/04 @ 11am. [id number] [facility] [address] 04/05/2024 12:48:06 04/09/2024 09:15:27 Atopic dermatitis 21247475 L20.9 pt with notable scab like ulceration s and peeling of skin in webs of fingers now resolvingD DX with ? livedoid vasculopat hy mentioned in hosp dc summaryhe continues with peeling of skin and dryness and reports ulceration s were peeled upcont triamcinol one 0.5% oint 1 dime size area to affected hands until resolvedmo nitor for changesVas cular 04/11 @ 13pm. Harmful pa ttern of use of alcohol 66618286 F10.132 see HPInaltrex one 50 mg po qdcontinue d on thiamine and supplement seval'd by addiction services in hospitalso cial work to be involved at facilitymo nitor need for increased support in community Osteomyelitis 81609331 M 86.052 carrying dx left chronic osteo at bka sitecomple nori doxy empiricall y through 03/25ID / ortho eval prnmonitor site for s/s infectionu pdate ortho with concerns Open wound of skin 19313 95861 01 T14.8XXA see above with chronic infection Asthenia 42868373 R53.1 weakness and gait instabilit yPT OT Eval and treatmonit or fall risk and need for increased support in community Atrial fibrillation 4943 6004 I48.0 contpradax a 150 mg bidmetopro lol 25 mg bidmonitor for rate control Essential hypertension 21457648 I10 controlled contDiltia zem 180 mg qdlisinopr il 10 mg qdMetoprol ol 25 mg bidmonitor bp and need to titrate Hyperlipidemia 40397744 E78.2 lipitor 20 mg qdcontinue d Type 2 dylon betes mellitus 14169349 E11.9 diet controlled , reportedha d low BS in hospital with possible low BS related to skin conditionn ow off metforminm ost recent hba1c wnrmonitor accucheck prn Marginal z one lymphoma 879085480 C83.07 with hx oflimited informatio n availablef u with oncology 04/05result s and consult pending Rheumatoid arthritis 698 57300 M06.9 he denies arthritis today however has likely underlying arthritisf u with Rheumatoid appt with Dr Hart 07/04 @ [facility]. [id number] Jasmin La NP [facility] [address] [address] 04/12/2024 09:03:45 04/15/2024 16:27:46 Osteomyelitis 66452666 M86.052 resolvedca rrying dx left chronic osteo at bka sitecomple nori doxy empiricall y through 03/25ID / ortho eval prnmonitor site for s/s infection outpt with pcpupdate ortho with concerns outpt prn Atopic dermatitis 460876 01 L20.9 mostly resolvedpt with notable scab like ulceration s and peeling of skin in webs of fingers now resolvingc ont triamcinol one 0.5% oint 1 dime size area to affected hands until resolved, will go home with tube for a few more daysmonito r for changes outpt with pcp Harmful pa ttern of use of alcohol 07877607 F10.132 see HPInaltrex one 50 mg po qdcontinue d on thiamine and supplement seval'd by addiction services in hospital alreadymon itor need for increased support in community outpt with vna and pcp services in place, also reports a cleaning service helps him Open wound of skin 97858 24989 01 T14.8XXA see above with chronic infection now resolvedfu with wound outpt, wound almost healed Asthenia 33155593 R53.1 seems back to baselinePT OT Eval and treat outpt prnmonitor fall risk and need for increased support in communityv na services in place per secondary social studies teacher Atrial fibrillation 4943 6004 I48.0 contpradax a 150 mg bidmetopro lol 25 mg bidmonitor for rate control outpt with pcp Essential hypertension 15931491 I10 controlled contDiltia zem 180 mg qdlisinopr il 10 mg qdMetoprol ol 25 mg bidmonitor bp and need to titrate outpt with pcp Hyperlipidemia 72334377 E78.2 lipitor 20 mg qdmonitor outpt with pcp Type 2 dylon betes mellitus 24624373 E11.9 diet controlled , reportedno w off metforminm ost recent hba1c wnrBS very stable heremonito r accucheck prn outpt with pcp Marginal z one lymphoma 435954168 C83.07 with hx oflimited informatio n availablef u with oncology prn outptconsu lt note not received here from 04/05 appt Rheumatoid arthritis 698 45110 M06.9 he denies arthritis today however has likely underlying arthritisf u with Rheumatoid appt with Dr Hart 07/04 @ 11am as scheduled Peripheral arterial insufficiency 6189540110 51937 I73.9 with L BKA and osteo healednote [...] [place] [employer] Ashley Francis [id number] Ashley Francis 03/25/2024 1 [place] [employer] Ashley Francis [id number] Ashley Francis 03/25/2024 2 [place] [facility] Ashley Francis [id number] Ashley Francis 03/28/2024 1 [place] [employer] Ashley Francis [id number] Ashley Francis 03/28/2024 2 [place] [facility] Ashley Francis [id number] Ashley Francis 04/05/2024 1 [employer] (MEDICARE REPLACEMENT PPO) [id number] Ashley Francis [id number] Ashley Francis 04/12/2024 1 [employer] (MEDICARE REPLACEMENT PPO) [id number] Ashley Francis [id number] Ashley Francis Notes Date Note Type Note [...] subject to another. JAVY MABRY NP [address] [facility], [address], [place], [address], [facility] 03/23/2024 15:11:32 4 text/htm l Patient [...] care and therapy Jatin Landis MD [address] [facility], [address], [place], [address], [facility] 03/25/2024 10:32:21 5 text/htm l Pt [...] soonest appt was taken. Jasmin La, DAVIDA [address] [place] [address], [address], [place], [address], [facility] [employer] 03/28/2024 19:26:02 5 text/htm l Pt is [...] Hart 07/04 @ 11am. Dr Coronel leaving [facility] soonest appt was taken. Jasmin La, GOVERNMENT AFFAIRS SPECIALIST [address] [facility], [address], [place], [address], [facility] - [employer] 04/05/2024 20:47:53 5 text/htm victor m Sheffield [...] prep qd to Left BKA. While at [facility]: Ashley has been fu with appointments: Saw [...] Hart 07/04 @ 11am. Dr Coronel leaving [facility] soonest appt was taken. He plans to follow up with wound care outpt for the BKA to ensure healing. He plans to fu with Ortho for a shoulder surgery in future when the BKA completely healed. His pcp is Dr Mauricio and will fu soon. Pt has been ambulating with Victor M WEBB [facility], per therapy here. He was started [...] and scale resolved. Jasmin La, DAVIDA [address] [facility], [address], [place], [address], [facility] - [employer] 04/12/2024 10:20:27
--- OUTSIDE RECORDS SUMMARY | 2024-07-20 10:14 | XMS_ITS ---
Author Organization [facility] Address [address] [facility] [place] [address] Care Team Providers Care Truck Mechanic Name Role Phone Nikole Mauricio MD Primary Care Provider Tony Ribeiro [phone] REASON FOR VISIT 10/24/23 appt Encounters Encounter [facility] Date [facility] [address] [place] [address] [address] [place] [address] 10/19/2023 Tony Reeves Plan Of Treatment No Information Progress Notes * Ashley FRANCISDOB:1955 (68 yo M)Acc No.[id number]:10/19/2023 Patient:?Ashley Francis :1955???Age:68 Y???Sex:Male Address: [place] [address] * true * Date:? Generated for Santy bower/Tressa/eTransmitting on:?07/20/2024 10:14 AM EDT
--- OUTSIDE RECORDS SUMMARY | 2024-07-20 10:15 | XMS_ITS | Encounter Summary ---
Author Organization [employer] Address [address] [place] [address] Care Team Providers Care Fruit Room Hand Name Role Phone Jatin Landis MD Primary Care Provider [phone] Encounter Details Date Type Department Care Team (Late st Contact Info) Description 03/25/2024 Lab Requisition [facility] - Main Lab [address] [facility] [place] [address] Jatin Landis MD [address] [place] [address] [address], [address] Chronic kidney disease, unspecified; Local infection [...] CBC auto differential (03/25/2024 5:17 AM EST) [facility] WBC 7.3 4.8 - 10.8 K/mcL LAB HEMETOLOGY METHOD 03/25/2024 9:28 AM [facility] RBC 3.70(L) 4.50 - 5.50 M/mcL LAB HEMETOLOGY METHOD 03/25/2024 9:28 AM [facility] Hemoglobin 12.7(L) 13.5 - 17.5 g/dL LAB HEMETOLOGY METHOD 03/25/2024 9:28 AM [facility] Hematocrit 38.6(L) 42.0 - 54.0 % LAB HEMETOLOGY METHOD 03/25/2024 9:28 AM [facility] MCV 103.8(H) 79.0 - 98.0 FL LAB HEMETOLOGY METHOD 03/25/2024 9:28 AM [facility] MCH 34.1(H) 27.0 - 32.0 pcg LAB HEMETOLOGY METHOD 03/25/2024 9:28 AM [facility] MCHC 32.9 32.0 - 37.0 g/dL LAB HEMETOLOGY METHOD 03/25/2024 9:28 AM [facility] RDW 13.8 11.0 - 15.0 % LAB HEMETOLOGY METHOD 03/25/2024 9:28 AM [facility] Platelets 310 130 - 400 K/mcL LAB HEMETOLOGY METHOD 03/25/2024 9:28 AM [facility] MPV 10.5 7.0 - 11.0 FL LAB HEMETOLOGY METHOD 03/25/2024 9:28 AM [facility] NRBC 0.0 <1.0 % LAB HEMETOLOGY METHOD 03/25/2024 9:28 AM [facility] NRBC Absolute 0.00 <0.10 K/mcL LAB HEMETOLOGY METHOD 03/25/2024 9:28 AM [facility] Neutrophils Relative 57.3 % LAB HEMETOLOGY METHOD 03/25/2024 9:28 AM [facility] Lymphocytes Relative 19.1 % LAB HEMETOLOGY METHOD 03/25/2024 9:28 AM [facility] Monocytes Relative 17.7 % LAB HEMETOLOGY METHOD 03/25/2024 9:28 AM [facility] Eosinophils Relative 4.1 % LAB HEMETOLOGY METHOD 03/25/2024 9:28 AM [facility] Basophils Relative 1.4 % LAB HEMETOLOGY METHOD 03/25/2024 9:28 AM [facility] Immature Granulocytes Relative 0.4 % LAB HEMETOLOGY METHOD 03/25/2024 9:28 AM [facility] Neutrophils Absolute 4.17 1.50 - 7.00 K/mcL LAB HEMETOLOGY METHOD 03/25/2024 9:28 AM [facility] Lymphocytes Absolute 1.39 1.00 - 5.00 K/mcL LAB HEMETOLOGY METHOD 03/25/2024 9:28 AM [facility] Monocytes Absolute 1.29(H) 0.20 - 1.00 K/mcL LAB HEMETOLOGY METHOD 03/25/2024 9:28 AM [facility] Eosinophils Absolute 0.30 0.00 - 0.50 K/mcL LAB HEMETOLOGY METHOD 03/25/2024 9:28 AM [facility] Basophils Absolute 0.10 0.00 - 0.20 K/mcL LAB HEMETOLOGY METHOD 03/25/2024 9:28 AM [facility] Immature Granulocytes Absolute 0.03 0.00 - 0.03 K/mcL LAB HEMETOLOGY METHOD 03/25/2024 9:28 AM [facility] Blood Venous blood specimen / Unknown Venipuncture / Unknown 03/25/2024 5:17 AM EST 03/25/2024 9:03 AM EST us Jatin Landis MD LAB BLOOD ORDERABLES Final Resul t Performing Organization Address [facility]/ZIP Co de Phone Number [facility] [address] [place] [address], [place] [phone] * (ABNORMAL) C-reactive protein (03/25/2024 5:17 AM EST) Pathologist [facility] C-Reactive Protein 1.04(H) <=0.50 mg/dL LAB CHEMISTRY METHOD 03/25/2024 9:46 AM [facility] Blood Venous blood specimen / Unknown Venipuncture / Unknown 03/25/2024 5:17 AM EST 03/25/2024 9:03 AM EST Jatin Landis MD LAB BLOOD ORDERABLES Final Resul t Performing Organization Address [facility]/ZIP Co de Phone Number [facility] [address] [place] [address], [place] [phone] * (ABNORMAL) Comprehensive metabolic panel (03/25/2024 5:17 AM EST) Pathologist [facility] Sodium 141 133 - 145 mmol/L LAB CHEMISTRY METHOD 03/25/2024 9:46 AM [facility] Potassium 4.2 3.5 - 5.5 mmol/L LAB CHEMISTRY METHOD 03/25/2024 9:46 AM [facility] Chloride 106 96 - 110 mmol/L LAB CHEMISTRY METHOD 03/25/2024 9:46 AM [facility] CO2 27 21 - 32 mmol/L LAB CHEMISTRY METHOD 03/25/2024 9:46 AM [facility] Anion Gap 8 3 - 11 LAB CHEMISTRY METHOD 03/25/2024 9:46 AM [facility] Glucose 77 70 - 100 mg/dL LAB CHEMISTRY METHOD 03/25/2024 9:46 AM [facility] BUN 17 5 - 25 mg/dL LAB CHEMISTRY METHOD 03/25/2024 9:46 AM [facility] Creatinine 0.76 0.70 - 1.30 mg/dL LAB CHEMISTRY METHOD 03/25/2024 9:46 AM [facility] eGFR 99 >=60 mL/min/1. 73m2 LAB CHEMISTRY METHOD 03/25/2024 9:46 AM [facility] Comment:Calculation based on the??Chronic Kidney Disease Epidemiology Collaboration (CKD-EPI) equation refit??without adjustment for race. BUN/Creatinine Ratio 22.4 LAB CHEMISTRY METHOD 03/25/2024 9:46 AM [facility] Calcium 9.0 8.5 - 10.5 mg/dL LAB CHEMISTRY METHOD 03/25/2024 9:46 AM [facility] AST (SGOT) 24 10 - 42 unit/L LAB CHEMISTRY METHOD 03/25/2024 9:46 AM [facility] ALT (SGPT) 20 10 - 60 unit/L LAB CHEMISTRY METHOD 03/25/2024 9:46 AM [facility] Alkaline Phosphatase 176(H) 42 - 121 unit/L LAB CHEMISTRY METHOD 03/25/2024 9:46 AM [facility] Total Protein 5.7(L) 6.0 - 8.0 g/dL LAB CHEMISTRY METHOD 03/25/2024 9:46 AM [facility] Albumin 3.3 3.2 - 5.0 g/dL LAB CHEMISTRY METHOD 03/25/2024 9:46 AM [facility] Total Bilirubin 0.3 0.0 - 1.4 mg/dL LAB CHEMISTRY METHOD 03/25/2024 9:46 AM [facility] Blood Venous blood specimen / Unknown Venipuncture / Unknown 03/25/2024 5:17 AM EST 03/25/2024 9:03 AM EST Jatin Landis MD LAB BLOOD ORDERABLES Final Resul t [facility] [address] [place] [address], documented in this encounter Visit Diagnoses Diagnosis Chronic kidney disease, unspecified Local infection of the skin and subcutaneous tissue, unspecified documented in this encounter Care Teams Fruit Room Hand Relationship Specialty Start Date End Date Jatin Landis MD [address] [place] [address], [phone] PCP - General Family Medicine 03/25/24 documented as of this encounter
--- OUTSIDE RECORDS SUMMARY | 2024-07-20 10:15 | XMS_ITS | Patient Health Record ---
Author Organization [facility] verónica HainesYogesh Address [address] [facility] [place] [address] Care Team Providers Care Certified Vehicle Fire Investigator Name Role Phone Nikole Mauricio MD Primary Care Provider Tony Ribeiro Unavailable [phone] Allergies Allergen (clinical drug ingredient) Drug/Non Drug Allergy documented on EMR Reaction Allergy Type Onset Date Status sulfamethoxazole / trimethoprim Bactrim rash Drug Allergy Active trimethoprim Trimethoprim rash Drug Allergy A ctive vancomycin Vancomycin HCl angioedema Drug Allergy Active Substance with sulfonamide structure and antibacterial mechanism of action (substance) Sulfa Antibiotics rash Drug Allergy Active Reason For Referral No Information Medications Medication [...] day Active Ketoconazole 2 % 1 application 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 Helper Gas ally Once a day Active Trulicity 3 [...] Polyneuropathy due to diabetes mellitus type I (415299584) 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 Vital Signs Height 6ft 2in in 08/08/2023 Weight 195 lbs 08/08/2023 BMI 25.03 kg/m2 08/08/2023 Procedures Procedure Date Ordered Date Performed Result Body Sit e 36719-IYTO SKIN LESIONS, 2 TO 4 08/08/2023 N/A 18464- I&D ABSCESS-COMPLICATED,MULTI 08/08/2023 N/A Encounters Encounter Location Date Provider Diagnosis [facility] [place] [address] [place] [address] 08/08/2023 Tony Reeves Tinea unguium B35.1 ; Pain in right toe(s) M79.674 ; Pain in left toe(s) M79.675 ; Skin disease L98.9 ; Type 1 diabetes mellitus with diabetic polyneuropathy E10.42 ; 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 ; Xerosis cutis L85.3 ; Abscess, toe, right L02.611 and Tinea pedis B35.[address] [facility] [address] [address] 08/08/2023 [facility] [place] [address] [place] [address] 08/16/2023 [facility] [place] [address] [place] [address] [address] [place] [address] 10/19/2023 Tony [place] Assessments Encounter Date Diagnosis (ICD Code) Assessment Notes Treatment Notes Treatment Clinical Notes Section Notes 08/08/2023 Tinea unguium (ICD-10 - B35.1) 08/08/2023 Pain in right toe(s) (ICD-10 - M79.674) 08/08/2023 Pain in left toe(s) (ICD-10 - M79.675) 08/08/2023 Skin disease (ICD-10 - L98.9) 08/08/2023 Type 1 diabetes mellitus with diabetic polyneuropathy (ICD-10 - E10.42) Patient Educated with: DIABETIC FOOT CARE INSTRUCTIONS. pdf (DIABETIC FOOT CARE INSTRUCTIONS. pdf) 08/08/2023 Non-pressure chronic ulcer of other part of right foot limited to breakdown of skin (ICD-10 - L97.511) 08/08/2023 Xerosis cutis (ICD-10 - L85.3) 08/08/2023 Abscess, toe, right (ICD-10 - L02.611) 08/08/2023 Tinea pedis (ICD-10 - B35.3) Plan Of Treatment Pending Test Test Name Order Date 14754- I&D ABSCESS-COMPLICATED,MULTI 09890-KXYZ SKIN LESIONS, OVER 4 05/25/19 24 31603-SAAW SKIN LESIONS, 2 TO 4 08/08/19 Insurance Providers Payer Name Payer Address Payer Phone Subscriber Number Group Number Insured Name Patient Relationship to Insured Coverage Start Date Coverage End Date [facility] [employer] Claims [address] [place] [id number] [phone] [id number] Ashley Francis Self - patient is the [...] bunionectomy colonoscopy esophagogastroduodenoscopy Hospitalization History Reason Date(Month/Year) [facility]- fell off chair, fractured left shou lder
--- OUTSIDE RECORDS SUMMARY | 2024-07-20 10:15 | XMS_ITS | Clinical Summary ---
Author Organization [facility] Address [address] [place] [address] Care Team Providers Care Kier Drier Name Role Phone Nikole Mauricio Primary Care Provider [phone] Allergies Active Allergy Reactions Criticality Noted Date [...] complete [place] [address] MEDICARE Care Teams Kier Drier Relationship Specialty Start Date End Date Nikole Mauricio [address] [facility] [place] [address] PCP - General Internal Medicine 01/02/24
--- OUTSIDE RECORDS SUMMARY | 2024-07-20 10:15 | XMS_ITS ---
Author Organization [facility] Address [address] [place] [address] Care Team Providers Care Bonded Strand Operator Name Role Phone Nikole Mauricio MD Primary Care Provider Tony Ribeiro [phone] REASON FOR VISIT Ciclopirox Encounters Encounter Location Date Provider Diagnosis [facility] [address] [place] [address] 08/16/2023 Tony Reeves Plan Of Treatment No Information Progress Notes * Ashley FRANCISDOB:1955 (68 yo M)Acc No.[id number]:08/16/2023 Patient:?Ashley Francis :1955???Age:68 Y???Sex:Male Address: [place] [address] * true * Date:? Generated for Santy bower/Tressa/eTransmitting on:?07/20/2024 10:14 AM EDT
--- OUTSIDE RECORDS SUMMARY | 2024-07-20 10:15 | XMS_ITS | Data Portability ---
Author Organization [facility] [employer] Address [address] [place] [address] Care Team Providers Care Paper Cup Handle Machine Operator Name Role Phone HIM MARY OTHER Assessment [...] Not available Not available Not available 01/23/2024 45196 RxNorm Not Available [facility] - production 4 03:38:22 7568 Bactrim medicatio n Not available Not available Not available 01/23/2024 11046 9 RxNorm Not Available [facility] - production [...] /min 187.96 cm 100 % 100 % 80313.4 4 g 99.5 [degF] 18 /min 185 mm[Hg] 98 mm[Hg] Not Available [facility] - production 4 18:00:42 Social History None recorded. Functional Status None recorded. Mental Status None recorded. Family History Nothing Reported. Medical History No medical history recorded. Past Encounters Encounter ID Performer Location Encounter Start Date Encounter Closed Date Diagnosis/Indication Diagnosis SNOMED-CT Code Diagnosis ICD10 Code Diagnosis Note [id number] Carlos Loo MD Main - [facility] [address] [place] [phone] 09/12/2023 18:00:34 09/12/2023 21:22:44 Open wound of lower leg [id number] S81.802A Health Concerns Section Related Observation LastModified by Organization Detai ls LastModified Time None Recorded Concern Status LastModified by Organization Details LastModified Time None Recorded Advance Directives Directive None Recorded Payers Encounter Date Sequence Insurance Name Policy Number Policy Alba Covered Member ID Alab Member ID Guarantor Name 09/12/2023 1 [facility] - DOS ON OR AFTER 2022 - DUAL ELIGIBLE - [facility] OPTIONS AND ONE CARE (MEDICARE REPLACEMENT/ADV ANTAGE - HMO) Ashley Francis [id number] Ashley Francis Notes Date Note Type Note Provider Name and Address Organization Details Recorded Time 09/12/2023 text/html CRC Nurse Triage Notes (Kristin Aguila): Reason For Request: [facility] member director of women's services Magaly reporting mbr is requesting [facility] for [...] .................... .................... .................... .................... .................... .................... . Cq Developer Note From Mera Mukherjee: Sent to a [...] .................... .................... . Disposition: Musa Loo MD [address] [place] [address],[address], [place], [address], [place] [employer] [place] 09/12/2023 19:31:35
--- OUTSIDE RECORDS SUMMARY | 2024-07-20 10:15 | XMS_ITS | Encounter Summary ---
Author Organization [employer] Address [address] [place] [address] Care Team Providers Care Lead Blender Name Role Phone Jatin Landis MD Primary Care Provider [phone] Encounter Details Date Type Department Care Team (Late st Contact Info) Description 04/08/2024 Lab Requisition [facility] - Main Lab [address] [facility] [place] [address] Jatin Landis MD [address] [place] [address], [phone] Non-pressure chronic ulcer of unspecified part [...] LAB CHEMISTRY METHOD 04/08/2024 10:27 AM EST [facility] Blood Venous blood specimen / Unknown Venipuncture / Unknown 04/08/2024 4:52 AM EST 04/08/2024 9:04 AM EST us Jatin Landis MD LAB BLOOD ORDERABLES Final Resul t [facility] [address] [place] [address], [place] [phone] * (ABNORMAL) Comprehensive metabolic panel (04/08/2024 4:52 AM EST) Pathologist [facility] Sodium 141 133 - 145 mmol/L LAB CHEMISTRY METHOD 04/08/2024 11:16 AM [facility] Potassium 4.5 3.5 - 5.5 mmol/L LAB CHEMISTRY METHOD 04/08/2024 11:16 AM [facility] Chloride 108 96 - 110 mmol/L LAB CHEMISTRY METHOD 04/08/2024 11:16 AM [facility] CO2 25 21 - 32 mmol/L LAB CHEMISTRY METHOD 04/08/2024 11:16 AM [facility] Anion Gap 8 3 - 11 LAB CHEMISTRY METHOD 04/08/2024 11:16 AM [facility] Glucose 98 70 - 100 mg/dL LAB CHEMISTRY METHOD 04/08/2024 11:16 AM [facility] BUN 15 5 - 25 mg/dL LAB CHEMISTRY METHOD 04/08/2024 11:16 AM [facility] Creatinine 0.73 0.70 - 1.30 mg/dL LAB CHEMISTRY METHOD 04/08/2024 11:16 AM [facility] eGFR 100 >=60 mL/min/1. 73m2 LAB CHEMISTRY METHOD 04/08/2024 11:16 AM [facility] Comment:Calculation based on the??Chronic Kidney Disease Epidemiology Collaboration (CKD-EPI) equation refit??without adjustment for race. BUN/Creatinine Ratio 20.5 LAB CHEMISTRY METHOD 04/08/2024 11:16 AM [facility] Calcium 9.0 8.5 - 10.5 mg/dL LAB CHEMISTRY METHOD 04/08/2024 11:16 AM [facility] AST (SGOT) 24 10 - 42 unit/L LAB CHEMISTRY METHOD 04/08/2024 11:16 AM [facility] ALT (SGPT) 39 10 - 60 unit/L LAB CHEMISTRY METHOD 04/08/2024 11:16 AM [facility] Comment:Results verified by repeat testing Alkaline Phosphatase 138(H) 42 - 121 unit/L LAB CHEMISTRY METHOD 04/08/2024 11:16 AM [facility] Total Protein 6.1 6.0 - 8.0 g/dL LAB CHEMISTRY METHOD 04/08/2024 11:16 AM [facility] Albumin 3.5 3.2 - 5.0 g/dL LAB CHEMISTRY METHOD 04/08/2024 11:16 AM [facility] Total Bilirubin 0.3 0.0 - 1.4 mg/dL LAB CHEMISTRY METHOD 04/08/2024 11:16 AM [facility] Blood Venous blood specimen / Unknown Venipuncture / Unknown 04/08/2024 4:52 AM EST 04/08/2024 9:04 AM EST us Jatin Landis MD LAB BLOOD ORDERABLES Final Resul t [facility] [address] [place] [address], * (ABNORMAL) Complete blood count (04/08/2024 4:52 AM EST) WBC 5.7 4.8 - 10.8 K/mcL LAB HEMETOLOGY METHOD 04/08/2024 10:00 AM [facility] RBC 4.20(L) 4.50 - 5.50 M/mcL LAB HEMETOLOGY METHOD 04/08/2024 10:00 AM [facility] Hemoglobin 14.2 13.5 - 17.5 g/dL LAB HEMETOLOGY METHOD 04/08/2024 10:00 AM [facility] Hematocrit 42.2 42.0 - 54.0 % LAB HEMETOLOGY METHOD 04/08/2024 10:00 AM [facility] MCV 100.5(H) 79.0 - 98.0 FL LAB HEMETOLOGY METHOD 04/08/2024 10:00 AM [facility] MCH 33.8(H) 27.0 - 32.0 pcg LAB HEMETOLOGY METHOD 04/08/2024 10:00 AM [facility] MCHC 33.6 32.0 - 37.0 g/dL LAB HEMETOLOGY METHOD 04/08/2024 10:00 AM [facility] RDW 13.3 11.0 - 15.0 % LAB HEMETOLOGY METHOD 04/08/2024 10:00 AM [facility] Platelets 330 130 - 400 K/mcL LAB HEMETOLOGY METHOD 04/08/2024 10:00 AM [facility] MPV 10.8 7.0 - 11.0 FL LAB HEMETOLOGY METHOD 04/08/2024 10:00 AM [facility] NRBC 0.0 <1.0 % LAB HEMETOLOGY METHOD 04/08/2024 10:00 AM EST [facility] NRBC Absolute 0.00 <0.10 K/mcL LAB HEMETOLOGY METHOD 04/08/2024 10:00 AM EST [facility] Blood Venous blood specimen / Unknown Venipuncture / Unknown 04/08/2024 4:52 AM EST 04/08/2024 9:04 AM EST us Jatin Landis MD LAB BLOOD ORDERABLES Final Resul t [facility] [address] [place] [address], documented in this encounter Visit Diagnoses Diagnosis Non-pressure chronic ulcer of unspecified part of left lower leg with unspecified severity (CMS/HCC V24, CMS/HCC V28) Infection of amputation stump, left lower extremity (CMS/HCC V24, CMS/HCC V28) Other toxic encephalopathy documented in this encounter Care Teams Lead Blender Relationship Specialty Start Date End Date Jatin Landis MD [address] [place] [address], [phone] PCP - General Family Medicine 03/25/24 documented as of this encounter
--- OUTSIDE RECORDS SUMMARY | 2024-07-20 10:15 | XMS_ITS | Referral Summary ---
Author Organization [facility] Address [address] [place] [address] Care Team Providers Care Caseworker Intake Name Role Phone Nikole Mauricio Primary Care Provider [phone] Allergies Active Allergy Reactions Criticality Noted Date [...] [place] [address] MEDICARE Member Subscriber Plan / Payer (Ef fective 2018-Present) Name:Ashley Francis Member ID:[id number] Relation to Subscriber:Self Name:Ashley Francis Subscriber ID:[id number] Payer ID:[id number] Group ID:Not on file Type:Not on file Address: [address] [place] [phone] Care Teams Caseworker Intake Relationship Specialty Start Date End Date Nikole Mauricio [address] [place] [address] PCP - General Internal Medicine 01/02/24
--- OUTSIDE RECORDS SUMMARY | 2024-07-20 10:15 | XMS_ITS ---
Author Organization [facility] Address [address] [facility] [place] [address] Care Team Providers Care Linotyper Name Role Phone Nikole Mauricio MD Primary Care Provider Tony Ribeiro [phone] Encounters Encounter Location Date [facility] [address] [facility] [address] [place] [address] 10/24/2023 Tony Reeves Plan Of Treatment No Information Progress Notes * Ashley FRANCISDOB:1955 (69 yo M)Acc No.[id number]:10/24/2023 Progress Note Patient:?Ashley FRANCIS Provider:?Tony Reeves DPM :1955???Age:68 Y???Sex:Male Fred e:10/24/2023 Address: [id number] Pcp:Nikole Mauricio MD Subjective: * Chief Complaints: [...] DPM Date:? 024 Generated for Printi ng/Faxing/eTransmitting on:?07/20/2024 10:14 AM EDT
--- OUTSIDE RECORDS SUMMARY | 2024-07-20 10:15 | XMS_ITS | Clinical Summary ---
Author Organization [address] [facility] Address [address] [place] [address] Phone Care Team Providers Care Truck Trailer Mechanic Name Role Phone Jatin Landis MD Primary Care Provider [phone] Social History Tobacco Use Types Packs/Day Years [...] - Risk 60-74 years 1-dose series) 2017 Abdominal Aortic Aneurysm (AAA) Screen 03/25/2024 Cholesterol Screening (Lipid Panel) 03/25/2024 Colorectal Cancer [...] mmol/L LAB CHEMISTRY METHOD 04/08/2024 11:16 AM EST [facility] Potassium 4.5 3.5 - 5.5 mmol/L LAB CHEMISTRY METHOD 04/08/2024 11:16 AM EST [facility] Chloride 108 96 - 110 mmol/L LAB CHEMISTRY METHOD 04/08/2024 11:16 AM EST [facility] CO2 25 21 - 32 mmol/L LAB CHEMISTRY METHOD 04/08/2024 11:16 AM EST [facility] Anion Gap 8 3 - 11 LAB CHEMISTRY METHOD 04/08/2024 11:16 AM EST [facility] Glucose 98 70 - 100 mg/dL LAB CHEMISTRY METHOD 04/08/2024 11:16 AM [facility] BUN 15 5 - 25 mg/dL LAB CHEMISTRY METHOD 04/08/2024 11:16 AM [facility] Creatinine 0.73 0.70 - 1.30 mg/dL LAB CHEMISTRY METHOD 04/08/2024 11:16 AM [facility] eGFR 100 >=60 mL/min/1. 73m2 LAB CHEMISTRY METHOD 04/08/2024 11:16 AM [facility] Comment:Calculation based on the??Chronic Kidney Disease Epidemiology Collaboration (CKD-EPI) equation refit??without adjustment for race. BUN/Creatinine Ratio 20.5 LAB CHEMISTRY METHOD 04/08/2024 11:16 AM [facility] Calcium 9.0 8.5 - 10.5 mg/dL LAB CHEMISTRY METHOD 04/08/2024 11:16 AM [facility] AST (SGOT) 24 10 - 42 unit/L LAB CHEMISTRY METHOD 04/08/2024 11:16 AM [facility] ALT (SGPT) 39 10 - 60 unit/L LAB CHEMISTRY METHOD 04/08/2024 11:16 AM [facility] Comment:Results verified by repeat testing Alkaline Phosphatase 138(H) 42 - 121 unit/L LAB CHEMISTRY METHOD 04/08/2024 11:16 AM [facility] Total Protein 6.1 6.0 - 8.0 g/dL LAB CHEMISTRY METHOD 04/08/2024 11:16 AM [facility] Albumin 3.5 3.2 - 5.0 g/dL LAB CHEMISTRY METHOD 04/08/2024 11:16 AM [facility] Total Bilirubin 0.3 0.0 - 1.4 mg/dL LAB CHEMISTRY METHOD 04/08/2024 11:16 AM [facility] Blood Venous blood specimen / Unknown Venipuncture / Unknown 04/08/2024 4:52 AM EST 04/08/2024 9:04 AM EST us Jatin Landis MD LAB BLOOD ORDERABLES Final Resul t [place] ([facility] [address] [place] [address], [place] [phone] from Last 3 Months or Most Recently Relevant to Health Maintenance Insurance MEDICARE [employer] MEDICARE ADVANTAGE Care Teams Truck Trailer Mechanic Relationship Specialty Start Date End Date Jatin Landis MD [address] [place] [address] [address] [place], [phone] PCP - General Family Medicine 03/25/24
[2024-07-20 11:26] VITALS: BP 137/53; PULSE 77; RESP 16; TEMP 36.6; O2SAT 99
== END 2024-07-20 11:58 | disposition home or self-care (01) ==
PROVIDERS: Emergency Provider Emergency Medicine; PCP Internal Medicine
DX: L25.9 Unspecified contact dermatitis, unspecified cause (principal); I25.10 Atherosclerotic heart disease of native coronary artery without angina pectoris; Z79.899 Other long term (current) drug therapy
CPT/HCPCS: 99283; 99284

== ENCOUNTER 2024-07-29 13:01 | Inpatient (IN) | payer MEDICARE, SELFPAY ==
[2024-07-29] VITALS (8 sets, daily range): BP systolic 163–203; BP diastolic 76–108; PULSE 87–134; RESP 15–19; TEMP 36.7–37.2; O2SAT 96–98; BMI 29.7
--- NOTE | 2024-07-29 13:18 | ED_ITS ---
HPI - Skin/Abscess/Foreign Bdy General Chief complaint: General Medical Stated complaint: ?CELLUILITS ON KNEE AND ULCERS ON FEET Time Seen by Provider: 07/29/24 13:13 Source: patient Mode of arrival: ambulatory Limitations: no limitations History of Present Illness ED Provider: Magaly Jameson PA-C HPI narrative: This is a 69-year-old male, with a past medical history of left BKA, depression, hypertension, hyperlipidemia, diabetes, alcohol use disorder, CAD, GERD, paroxysmal atrial fibrillation, splenic marginal zone B-cell lymphoma, prior appendectomy, who presents emergency department with concerns for increased left lower extremity redness which he noticed today. Patient states that he was wearing his prosthesis for prolonged period of time yesterday, and noticed increased redness behind his left knee. He states that he has had similar symptoms in the past, previously seen on July 20 for same. He has been unable to start on the cortisone cream until yesterday given difficulties with transportation. He denies any fevers or chills. He denies any chest pain, shortness for breath, abdominal pain, nausea, vomiting or diarrhea. He states that he drank alcohol yesterday, denies any history of alcohol seizures however does endorse some alcohol withdrawal in the past. Patient is tearful, stating that he is getting , and selling his house in his having a difficult time with processing this. He would like to speak to someone from the care team in regards to his emotions as he is have a difficult time maintaining them. He becomes tearful, speaking about his family, states that he has a 10-year-old granddaughter who he has not met before. He does report he has a drug and alcohol counselor, attends AA 3 times a week. No other complaints or concerns at this time. Onset (ago): day(s) Pain Consistency: constant Relieving factors: none Exacerbating factors: none Context: none Associated symptoms: denies other symptoms Treatments prior to arrival: none Related Data Home Medications ?Medication ?Instructions ?Recorded ?Confirmed duloxetine 60 mg capsule,delayed 60 mg PO DAILY 12/21/19 07/29/24 release multivitamin 1 tab PO DAILY 02/27/20 07/29/24 allopurinol 100 mg tablet 200 mg PO DAILY 02/08/21 07/29/24 naltrexone 50 mg tablet 50 mg PO DAILY Alcohol Withdrawal 08/24/22 07/29/24 bupropion HCl 150 mg 24 hr tablet, 150 mg PO DAILY 06/01/23 07/29/24 extended release buspirone 10 mg tablet 10 mg PO BID 10/06/23 07/29/24 digoxin 125 mcg (0.125 mg) tablet 125 mcg PO DAILY 07/08/24 07/29/24 metoprolol tartrate 50 mg tablet 50 mg PO BID 07/08/24 07/29/24 naproxen 500 mg tablet 500 mg PO BID 07/08/24 07/29/24 Previous Rx's ?Medication ?Instructions ?Recorded flash glucose sensor (FreeStyle #1 ea 07/14/22 Erika 14 Day Sensor kit) blood pressure test kit-medium #1 ea 08/03/22 commode (bedside commode) #1 ea 09/29/23 wheelchair-16 inch wide with #1 ea 09/29/23 removable footrests atorvastatin 20 mg tablet 20 mg PO BEDTIME 30 days #90 tabs 02/29/24 dabigatran etexilate 150 mg 150 mg PO BID 90 days #180 caps 02/29/24 capsule (Pradaxa) diltiazem HCl 180 mg 180 mg PO DAILY 90 days #90 caps 02/29/24 capsule,extended release 24 hr, controlled ascorbic acid (vitamin C) 500 mg 500 mg PO DAILY #90 tabs 03/05/24 tablet (Vitamin C) folic acid 1 mg tablet 1 mg PO DAILY #90 tabs 03/05/24 thiamine HCl (vitamin B1) 100 mg 100 mg PO DAILY #90 tabs 03/05/24 tablet blood sugar diagnostic (FreeStyle #100 ea 05/03/24 Lite Strips) blood-glucose meter (FreeStyle #1 ea 05/03/24 Lite Meter kit) lancets 28 gauge (FreeStyle #100 ea 05/03/24 Lancets) clotrimazole 1 % topical cream 1 appl topical BID #30 grams 07/11/24 metronidazole 0.75 % topical gel 1 appl topical BID #45 grams 07/11/24 hydrocortisone valerate 0.2 % 1 appl topical BID PRN rash #15 07/20/24 topical ointment grams Allergies Allergy/AdvReac Type Severity Reaction Status Date / Time vancomycin [VANCOMYCIN] Allergy Severe ANGIOEDEMA Verified 07/29/24 13:21 Sulfa (Sulfonamide Allergy Intermediate Rash Verified 07/29/24 13:21 Antibiotics) sulfamethoxazole Allergy rash Verified 07/29/24 13:21 [From Bactrim] trimethoprim [From Bactrim] Allergy Rash Verified 07/29/24 13:21 Review of Systems 2 Review of Systems: Constitutional: No Weight loss, No Fever, No Chills, No Night Sweats, No Fatigue, No Malaise ENT/Mouth: No Hearing loss, No Ear Pain, No Nasal Congestion, No Sinus Pain, No Hoarseness, No sore throat, No Rhinorrhea, No Swallowing Difficulty Eyes: No Eye Pain, No Swelling, No Redness, No Foreign Body, No Discharge, No Vision Changes Cardiovascular: No Chest Pain, No SOB, No Dyspnea on Exertion, No Orthopnea, No Edema, No Palpitations Respiratory: No Cough, No Sputum, No Wheezing, No Smoke Exposure, No Dyspnea Gastrointestinal: No Nausea, No Vomiting, No Diarrhea, No Constipation, No Abdominal pain, No Hematochezia, No Melena Genitourinary: No irregular bleeding, No Dysuria, No Urinary Frequency, No Hematuria, No Urinary Incontinence/retention, No Urgency, No Flank Pain, No Urinary Flow Changes, No Hesitancy Musculoskeletal: No joint pain, No Myalgias, No Joint Swelling Skin: No Skin Lesions, + rash Neuro: No Weakness, No Numbness, No Paresthesias, No Loss of Consciousness, No Dizziness, No Headache Psych: No Anxiety/Panic, No Depression, No SI/HI/AH/VH, No Social Issues, Heme/Lymph: No Bruising, No Bleeding,No Lymphadenopathy Endocrine: No Polyuria, No Polydipsia, No Temperature Intolerance Yes all other systems are reviewed and are negative Constitutional: Constitutional: Reports as per HPI [facility] Past Medical History Medical History Venous stasis ulcers Alcohol withdrawal PAF (paroxysmal atrial fibrillation) Weakness Rosacea Annual physical exam Depression Essential hypertension Hyperlipidemia LDL goal <100 Obesity due to excess calories BMI 30.0-30.9,adult ETOH abuse BPH associated with nocturia CAD (coronary artery disease) Long-term current use of intravenous immunoglobulin (IVIG) GERD (gastroesophageal reflux disease) Hypogammaglobulinemia Diabetic eye exam Adjustment disorder Gout Chronic osteomyelitis Splenic marginal zone b-cell lymphoma EMIL (obstructive sleep apnea) Surgical History Status post below-knee amputation of left lower extremity Osteomyelitis Osteomyelitis History of esophagogastroduodenoscopy (EGD) History of colonoscopy History of bunionectomy History of cardiac cath Family History Family History Father Diabetes Mother Liver cancer Maternal Grandfather CVD (cardiovascular disease) Brother Myocardial infarction Social History Social History Household Members: None Housing: House Do you presently have visiting nurse or other home services: Yes Alcohol intake: current Alcohol intake frequency: 3 or more drinks per day Alcohol type: hard liquor Comment: sitter in room / video Patient Tobacco Use Status: Never used Tobacco Smoked in Last 30 Days: No e-Cigarette/Vaping Use: Never Used Second Hand Smoke Exposure: No Use of substances other than those prescribed or required for medical reasons: No Advance Directives: Yes Advance Directives on File: Yes Advance Directives Date on File: 10/10/23 Do you have a plan to hurt others: No Plan Nutrition Risks: No Nutritional Risk service: No Current occupational status: employed 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 Cognitive needs: No Hearing needs: No Vision needs: Yes Physical Exam 2 Vital Signs: Vital Signs: Last Vital Signs Temp 98.6 F 07/30/24 08:50 Pulse 99 07/30/24 08:50 Resp 18 07/30/24 08:50 BP 94/61 07/30/24 08:50 Pulse Ox 96 07/30/24 08:50 O2 Del Method Room Air 07/30/24 08:50 BMI result Body Mass Index 29.7 Const: General: cooperative, comfortable and no acute distress O rientation/consciousness: patient oriented x3 Limitations: no limitations HEENT: Head: Yes normal to inspection, Yes normocephalic and Yes atraumatic Ears: hearing grossly normal bilaterally General nose exam: Normal external nose present Face and sinus: Yes normal facial exam Mouth: Normal oral and palatal mucosa present, oropharynx normal and moist mucous membranes Throat: Yes posterior oropharynx normal Eyes: General: appearance normal, both eyes and all related structures E yelids: Yes eyelids normal Conjunctivae: conjunctivae normal Sclerae: s clerae normal Pupils: Equal, round and reactive pupils present EOM: EOMs intact bilaterally Neck: Neck: Yes normal visual inspection, Yes full ROM and Yes no lymphadenopathy Lymphatic: no lymphadenopathy noted Chest: Chest palpation & inspection: normal inspection of the chest Resp: Effort & Inspection: normal respiratory effort and able to speak in complete sentences Auscultation: clear to auscultation bilaterally, no crackles, no rales, no rhonchi and no wheezes Cardio: Rate: regular rate Rhythm: regular rhythm Heart sounds: S1 normal heart sound present and S2 normal heart sound present GI: Inspection: Yes normal to inspection Skin: Other: Left BKA noted, posterior left knee with area of slight erythema and warmth, mild tender to palpation, no drainage. Right leg with chronic healing wound, no surrounding erythema or warmth. No drainage. No calf tenderness. Neuro: General: patient oriented x3 and moves all extremities Cranial nerves: Yes Equal, round and reactive pupils present Extrem: General: Yes normal to inspection Right upper extremity: normal to inspection Left upper extremity: normal to inspection Right lower extremity: normal to inspection Left lower extremity: normal to inspection Medications Administered Generic Name Dose Route Start Last Admin Trade Name Freq PRN Reason Stop Dose Admin Acetaminophen 650 mg 07/29/24 19:03 07/30/24 06:30 Acetaminophen 325 Mg Tablet PO 650 mg Q6H PRN Administration Pain, Mild 1-3,fever,headache Allopurinol 200 mg 07/30/24 09:00 07/30/24 08:43 Allopurinol 100 Mg Tablet PO 200 mg DAILY MADDY Administration Ascorbic Acid 500 mg 07/30/24 09:00 07/30/24 08:39 Ascorbic Acid 500 Mg Tablet PO 500 mg DAILY MADDY Administration Atorvastatin Calcium 20 mg 07/29/24 21:00 07/29/24 21:18 Atorvastatin Calcium 20 Mg Tablet PO 20 mg BEDTIME MADDY Administration Bupropion HCl 150 mg 07/30/24 09:00 07/30/24 08:43 Bupropion Hcl Xl 150 Mg Tab.Er.24h PO 150 mg DAILY MADDY Administration Buspirone HCl 10 mg 07/29/24 21:00 07/29/24 21:18 Buspirone Hcl 10 Mg Tablet PO 10 mg BID MADDY Administration Clotrimazole 1 appl 07/29/24 21:00 07/30/24 01:30 Clotrimazole 1 % Cream 15 Gm Tube TOPICAL 1 appl BID [facility] Administration Protocol Dabigatran 150 mg 07/29/24 21:00 07/29/24 21:18 Dabigatran Etexilate Mesylate 150 Mg Capsule PO 150 mg BID MADDY Administration Digoxin 0.125 mg 07/29/24 16:15 07/30/24 08:43 Digoxin 0.125 Mg Tablet PO 0.125 mg DAILY MADDY Administration Protocol Diltiazem HCl 180 mg 07/29/24 16:15 07/30/24 08:40 Diltiazem Hcl Cd 180 Mg Cap.Er.24h PO 180 mg DAILY MADDY Administration Protocol Duloxetine HCl 60 mg 07/30/24 09:00 07/30/24 08:43 Duloxetine Hcl 60 Mg Capsule.Dr PO 60 mg DAILY MADDY Administration Folic Acid 1 mg 07/30/24 09:00 07/30/24 08:39 Folic Acid 1 Mg Tablet PO 1 mg DAILY MADDY Administration Diltiazem HCl 125 mg/ Sodium 125 mls @ 0 mls/hr 07/29/24 19:00 07/29/24 23:12 Chloride IVCONT 0 mg/hr .Q0M MADDY 0 mls/hr Titration Protocol Per Protocol Linezolid 600 mg in 300 mls @ 300 mls/hr 07/29/24 22:00 07/30/24 00:10 Zyvox/D5w IV Infused Q12H [facility] Infusion Piperacillin Sod/Tazobactam 100 mls @ 200 mls/hr 07/29/24 21:00 07/30/24 09:16 Sod 4.5 gm/ Sodium Chloride IV Infused Q6H [facility] Infusion Insulin Human Lispro 0 unit 07/30/24 07:30 07/30/24 08:39 Insulin Lispro 100 Unit/Ml 3 Ml Vial SUBCUT 2 unit QIDACHS [facility] Administration Protocol Metoprolol Tartrate 50 mg 07/29/24 21:00 07/30/24 08:48 Metoprolol Tartrate 50 Mg Tablet PO Not Given BID [facility] Protocol Metronidazole 1 appl 07/29/24 21:00 07/30/24 01:30 Metronidazole 0.75 % Gel 45 Gm Tube TOPICAL 1 appl BID [facility] Administration Multivitamins/Vitamin C 1 tab 07/30/24 09:00 07/30/24 08:43 Multivitamin Tablet PO 1 tab DAILY MADDY Administration Sodium Chloride 3 ml 07/30/24 00:00 07/30/24 08:45 0.9 % Sodium Chloride Flush 3 Ml Syringe IVFLUSH 3 ml QSHIFT MADDY Administration Thiamine HCl 100 mg 07/30/24 09:00 07/30/24 08:43 Thiamine Hcl 100 Mg Tablet PO 100 mg DAILY MADDY Administration Discontinued Medications Generic Name Dose Route Start Last Admin Trade Name Yuridia PRN Reason Stop Dose Admin Acetaminophen 975 mg 07/29/24 18:28 07/29/24 18:56 Acetaminophen 325 Mg Tablet PO 07/29/24 18:29 975 mg ONCE ONE Administration Cefazolin Sodium 1 gm 07/29/24 18:25 07/29/24 19:21 Cefazolin Sodium 1 Gm Vial IVPUSH 07/29/24 18:26 1 gm ONCE ONE Administration Diltiazem HCl 10 mg 07/29/24 16:08 07/29/24 16:21 Diltiazem Hcl 50 Mg/10 Ml Vial IVPUSH 07/29/24 16:09 10 mg STAT STA Administration Sodium Chloride 1,000 mls @ 999 mls/hr 07/29/24 18:25 07/29/24 20:25 Ns IV 07/29/24 19:25 Infused .Q1H1M ONE Infusion Phenobarbital Sodium 329 mg 07/29/24 21:00 07/29/24 21:19 Phenobarbital Sodium 130 Mg/Ml Im Once IM 07/29/24 21:01 329 mg ONCE ONE Administration Protocol Phenobarbital Sodium 130 mg 07/29/24 23:32 07/30/24 01:19 Phenobarbital Sodium 130 Mg/Ml Vial IM 07/29/24 23:33 Not Given ONCE ONE Phenobarbital Sodium 247 mg 07/30/24 01:15 07/30/24 04:19 Phenobarbital Sodium 130 Mg/Ml Vial Im Q3hx2 IM 07/30/24 04:16 247 mg Q3H MADDY Administration Protocol Thiamine HCl 100 mg 07/29/24 19:05 07/29/24 20:26 Thiamine Hcl 100 Mg Tablet PO 07/29/24 19:06 100 mg ONCE ONE Administration Medical Decision Making Medical Decision Making MDM Narrative: This is a 69-year-old male who presents emergency department with concerns for left leg redness and swelling. Patient also endorsing that he is having a difficult time with the divorce is undergoing. On arrival, blood pressure elevated at 203/87. He admits that he has not taken any his medications today. Reports that he drank alcohol last night. Patient with left BKA posterior knee with surrounding erythema and warmth, unable to discern whether not this is early cellulitis or contact dermatitis. Given patient wishes to speak to the care team, will obtain labs, urinalysis,. We will continue to closely monitor pending overall workup today. We will also obtain medication reconciliation to get his medications. He has no chest pain or shortness for breath. No dizziness lightheadedness. We will continue to monitor pending overall workup today. 07/29/2024 1607 - patient was seen by the care team, cleared, they will follow- up outpatient. Will treat early cellulitis in the left lower extremity. Repeat vitals revealed that patient is tachycardic. Appears to be in AFib with RVR. He is asymptomatic, feeling well, he states that he did not take any of his medications at home prior to his arrival today. Given this, will treat with 1 dose of diltiazem 10 mg IV, and give all other home medications. Patient has no leukocytosis, stable H&H, chemistry with no significant electrolyte derangement. At this time, patient does not meet hospital over of care as patient can be treated with oral antibiotics. 182 - patient remains to be in AFib with RVR in the 110s. I discussed this with my attending physician, Dr. Levine. He recommends giving 1 time dose of antibiotics and1L IV fluids. Also recommending to wait until oral medication kicks in, rather than giving more IV dilt. Blood pressure remained stable at 160/101. Will continue to closely monitor. 185 - Patient reassessed, still remains to be in AFib with RVR in the 130s. Patient will be placed on a Dilt drip, also start on phenobarb protocol per recommendations from my attending physician. Patient will be admitted for cellulitis, AFib and RVR, and alcohol withdrawal. Spoke to Dr. Newman, transfer of care initiated. Patient is seen and evaluated with SHIRLEY agreed with the plan >. dr levine Differential Diagnosis Differential Diagnoses: The differential diagnosis associated with the presentation includes Cellulitis, contact dermatitis, pressure ulcer, atopic dermatitis Admission/Observation Consideration of admission/observation: Escalation of care including admission/observation considered Lab Data MDM Lab Attestation statement: I reviewed the patient's lab results. See MDM and course comment 07/30/24 04:11 07/30/24 04:11 Labs: Lab Results 07/29/24 Range/Units 14:02 WBC 9.2 (4.8-10.8) X10*3/uL RBC 4.67 D (4.60-5.80) X10*6/uL Hgb 14.9 (14.0-18.0) g/dl Hct 43.9 (42.0-52.0) % MCV 94.0 (80.0-98.0) fL MCH 31.9 (27.0-33.0) pg MCHC 33.9 (31.0-36.0) g/dl RDW 15.5 (11.0-16.0) % Plt Count 438 H D (160-400) X10*3/uL MPV 9.8 (9.4-12.4) fL Immature Gran % (Auto) 0.3 (0.0-0.4) % Neut % (Auto) 62.2 (45-73) % Lymph % (Auto) 16.6 L (20-40) % Zavala % (Auto) 12.2 H (2-11) % Eos % (Auto) 7.2 H (0-4) % Baso % (Auto) 1.5 (0-2) % Lymph # (Auto) 1.5 (1.2-4.9) X10*3/uL Zavala # (Auto) 1.1 (0.1-1.2) X10*3/uL Eos # (Auto) 0.7 H (0.0-0.4) X10*3/uL Baso # (Auto) 0.1 (0.0-0.2) X10*3/uL Abs Immat Gran (auto) 0.03 (0.00-0.03) X10*3/uL Absolute Neuts (auto) 5.7 (2.0-8.3) x10*3/uL Absolute Nucleated RBC 0.000 (0.0-0.012) X10*3/uL Nucleated RBC % (auto) 0.0 (0.0-0.2) /100WBC Sodium 145 (135-145) mmol/L Potassium 4.3 (3.3-5.1) mmol/L Chloride 107 (96-108) mmol/L Carbon Dioxide 25 (22-29) mmol/L Anion Gap 17 (12-20) BUN 11 (9-16) mg/dL Creatinine 0.79 (0.5-1.4) mg/dL Estim Creat Clear Calc 117.1 Estimated GFR > 60 Random Glucose 135 H (60-115) mg/dL Calcium 9.4 D (8.4-10.2) mg/dL Total Bilirubin 0.4 (0.0-1.0) mg/dL AST 27 (5-37) U/L ALT 17 (0-40) U/L Alkaline Phosphatase 170 H (39-117) U/L Total Protein 6.9 (6.5-8.0) g/dL Albumin 4.1 (3.5-5.0) g/dL Salicylates < 5.0 L (15-30) mg/dL Acetaminophen < 3 (<30) mcg/mL Ethyl Alcohol 28 mg/dL Independent Interpretation I performed an independent interpretation of an: EKG Interpretation: EKG atrial fibrillation with rapid ventricular response, ventricular rate of 124, QT QTC to 88/413, no ST elevation or depression. Critical Care Time Critical Care Time Critical Care Time: Yes Total Critical Care Time: 32 Attestation: I have personally provided critical care time exclusive of time spent on separately billable procedures. Time includes review of lab data, radiology results, discussion with consultants, and monitoring for potential decompensation. Intervention performed as documented. Discharge Plan Discharge Clinical Impression: Cellulitis, Atrial fibrillation with RVR, Alcohol withdrawal Patient Disposition: Admitted As Inpatient
--- NOTE | 2024-07-29 14:09 | PC.NURSE ---
PER charge account authorizer patient does not need complete crisis tire changer. patient is only endorsing ETOH use and anxiety/depression. denies SI/HI.
[2024-07-29 14:25] LABS: MANUAL DIFF FLAG NO
[2024-07-29 14:26] LABS: Basophils Absolute Auto 0.1 X10*3/uL (0.0-0.2); Basophils Percent Auto 1.5 % (0-2); Eosinophils Absolute Auto 0.7 X10*3/uL (0.0-0.4); Eosinophils Percent Auto 7.2 % (0-4); Hematocrit 43.9 % (42.0-52.0); Hemoglobin 14.9 g/dl (14.0-18.0); Imm Gran Abs Auto 0.03 X10*3/uL (0.00-0.03); Imm Gran Pct Auto 0.3 % (0.0-0.4); Lymphocytes Absolute Auto 1.5 X10*3/uL (1.2-4.9); Lymphocytes Percent Auto 16.6 % (20-40); Mean Corpuscular HGB Conc 33.9 g/dl (31.0-36.0); Mean Corpuscular Hemoglobin 31.9 pg (27.0-33.0); Mean Platelet Volume 9.8 fL (9.4-12.4); Monocytes Absolute Auto 1.1 X10*3/uL (0.1-1.2); Monocytes Percent Auto 12.2 % (2-11); Neutrophils Absolute Auto 5.7 x10*3/uL (2.0-8.3); Neutrophils Percent Auto 62.2 % (45-73); Platelet Count 438 X10*3/uL (160-400); Red Blood Count 4.67 X10*6/uL (4.60-5.80); Red Cell Distribution Width 15.5 % (11.0-16.0); White Blood Count 9.2 X10*3/uL (4.8-10.8)
[2024-07-29 14:44] LABS: Alanine Aminotransferase 17 U/L (0-40); Albumin Level 4.1 g/dL (3.5-5.0); Alkaline Phosphatase 170 U/L (39-117); Anion Gap 17 (12-20); Aspartate Amino Transferase 27 U/L (5-37); Bilirubin Total 0.4 mg/dL (0.0-1.0); Blood Urea Nitrogen 11 mg/dL (9-16); Calcium 9.4 mg/dL (8.4-10.2); Carbon Dioxide 25 mmol/L (22-29); Chloride 107 mmol/L (96-108); Creatinine Clr Calc Pharmacy 117.1; Estimated Glomerular Filt Rate > 60; Ethanol 28 mg/dL; Glucose Random 135 mg/dL (60-115); Potassium 4.3 mmol/L (3.3-5.1); Sodium 145 mmol/L (135-145); Total Protein 6.9 g/dL (6.5-8.0)
[2024-07-29 14:53] LABS: Acetaminophen LAB < 3 mcg/mL (<30); Salicylate < 5.0 mg/dL (15-30)
--- OUTSIDE RECORDS SUMMARY | 2024-07-29 15:16 | XMS_ITS | Referral Summary ---
Author Organization [facility] Address [address] [place] [address] Care Team Providers Care Logging Supervisor Name Role Phone Nikole Mauricio Primary Care Provider [phone] Allergies Active Allergy Reactions Criticality Noted Date [...] [place] [address] MEDICARE Member Subscriber Plan / Payer (Ef fective 2018-Present) Name:Ashley Francis Member ID:[id number] Relation to Subscriber:Self Name:Ashley Francis Subscriber ID:[id number] Payer ID:[id number] Group ID:Not on file Type:Not on file Address: [address] [phone] Care Teams Logging Supervisor Relationship Specialty Start Date End Date Nikole Mauricio [address] [place] [address] PCP - General Internal Medicine 01/02/24
--- OUTSIDE RECORDS SUMMARY | 2024-07-29 15:16 | XMS_ITS | Data Portability ---
Author Organization [facility], Main Office Address [address] [place] [address] Care Team Providers Care [employer] Teacher Name Role Phone DONOVAN DONATO - 2ND [...] Organization Details Recorded Time Atrial fibrillatio n 80830541 Active 2023 JAVY MABRY NP [address] [facility] [address] [facility], [address], [place], [address], [facility] 4 14:46:48 Osteomyelit is 12001189 Active 2023 JAVY MABRY NP [address] [facility] [address] [facility], [address], [place], [address], [facility] 4 14:46:56 Open wound of skin 944825699444 Active 2023 JOSH MABRY NP [address] [facility] [address] [facility], [address], [place], [address], [facility] 4 14:47:21 Essential hypertensio n 31429295 Active 2023 JAVY MABRY NP [address] [facility], [address], [place], [address], [facility] 4 14:47:31 Hyperlipide pablo 75207899 Active 2023 JAVY MABRY NP [address] [facility] [address] [facility], [address], [place], [address], [facility] 4 14:47:35 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 2023 JAVY MABRY NP [address] [facility], [address], [place], [address], [facility] 4 14:47:58 Falls 295385179 Active 2023 JAVY MABRY NP [address] [facility], [address], [place], [address], [facility] 4 14:53:49 Type 2 diabetes mellitus 17866568 Active 2023 JAVY MABRY NP [address] [facility], [address], [place], [address], [facility] 4 15:00:44 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 Medical Equipment None Reported. Allergies Allergen ID Allergen Name Allergen Category Reaction Reaction Severity Criticality Documentation Date Start Date Code Code System Note Provider Name and Address Organization Details Recorded Time 46276 Bactrim medicatio n Not available Not available Not available 03/23/2024 67495 9 RxNorm JAVY MABRY NP [address] [facility], [address], [place], [address], [facility] 4 14:46:28 05222 vancomyci n medicatio n Not available Not available Not available 03/23/2024 62896 RxNorm JAVY MABRY NP [address] [facility] [address], [place], [address] , [facility] 4 14:46:33 Medications Not known to be on any medication Vitals Date Recorded Body weight Heart rate Respiratory rate Body temperature Oxygen saturation Oxygen saturation in Arterial blood by Pulse oximetry Systolic blood pressure Diastolic blood pressure Provider Name and Address Organization Details Last Updated DateTime 4 00617.9 2 g 74 /min 16 /min 97.1 [degF] 97 % 97 % 102 mm[Hg] 65 mm[Hg] JAVY MABRY NP [address] [facility] [address], [place], [address], [facility] 4 14:45:21 Date Recorded Body weight Heart rate Respiratory rate Body temperature Oxygen saturation Oxygen saturation in Arterial blood by Pulse oximetry Systolic blood pressure Diastolic blood pressure Provider Name and Address Organization Details Last Updated DateTime 5 20981.4 4 g 67 /min 18 /min 97.4 [degF] 98 % 98 % 150 mm[Hg] 80 mm[Hg] Jasmin La NP [address] [facility] [address], [place], [address], [facility] 5 16:11:23 Date Recorded Body weight Heart rate Respiratory rate Body temperature Oxygen saturation Oxygen saturation in Arterial blood by Pulse oximetry Systolic blood pressure Diastolic blood pressure Provider Name and Address Organization Details Last Updated DateTime 5 10814 g 82 /min 16 /min 97.2 [degF] 95 % 95 % 134 mm[Hg] 60 mm[Hg] Jasmin La NP [address] [facility] [address], [place], [address], [facility] 5 20:25:18 Date Recorded Body weight Heart rate Respiratory rate Body temperature Oxygen saturation Oxygen saturation in Arterial blood by Pulse oximetry Systolic blood pressure Diastolic blood pressure Provider Name and Address Organization Details Last Updated DateTime 5 66836 g 76 /min 18 /min 97.8 [degF] 99 % 99 % 126 mm[Hg] 71 mm[Hg] Jasmin La NP [address] [facility], [address], [place], [address], [facility] 5 09:45:11 Date Recorded Systolic blood pressure Diastolic blood pressure Provider Name and Address Organization Details Last Updated DateTime 03/25/2024 112 mm[Hg] 78 mm[Hg] Jatin Landis MD [address] [facility], [address], [place], [address], [facility] 03/25/2024 10:06:23 Social History Question Answer Notes LastModified by Organizat ion Details LastModified Time Tobacco Smoking Status Never Smoker JAVY MABRY NP [address] [facility], [address], [place], [address], [facility] 03/23/2024 14:49:48 Do You Have An [...] virus (RSV), unspecified 3 completed Eulalia brasher [facility]IKI[facility] 03/26/2024 14:51:00 Hep B, unspecified formulation 8 completed Eulalia brasher [facility] TIKI[facility]VN [facility] 03/26/2024 14:51:16 Tdap 5 completed Eulalia brasher [facility] 03/26/2024 14:51:30 Pneumococcal conjugate PCV 13 3 completed Eulalia Chandra [facility], [facility] 03/26/2024 14:55:05 pneumococcal polysaccharide PPV23 6 completed Eulalia Prateek null, [facility] 03/26/2024 14:55:34 pneumococcal polysaccharide PPV23 6 completed Eulalia Prateek null, [facility] 03/26/2024 14:55:41 influenza, unspecified formulation 2 completed Eulalia Prateek null, [facility] 03/26/2024 14:56:07 influenza, unspecified formulation 3 completed Eulalia Prateek null, [facility] 03/26/2024 14:56:17 influenza, unspecified formulation 4 completed [facility] 14:56:27 meningococcal ACWY, unspecified formulation 9 completed Eulalia Prateek [facility], [facility] 03/26/2024 14:56:54 SARS-COV-2 (COVID-19) vaccine, UNSPECIFIED 1 completed Eulalia Prateek null, [facility] 03/26/2024 14:57:07 SARS-COV-2 (COVID-19) vaccine, UNSPECIFIED 1 completed Eulalia Prateek null, [facility] 03/26/2024 14:57:15 SARS-COV-2 (COVID-19) vaccine, UNSPECIFIED 1 completed Eulalia Prateek null, [facility] 03/26/2024 14:57:24 SARS-COV-2 (COVID-19) vaccine, UNSPECIFIED 2 completed Eulalia Prateek null, [facility] 03/26/2024 14:57:32 SARS-COV-2 (COVID-19) vaccine, UNSPECIFIED 2 completed Eulalia Prateek null, [facility] 03/26/2024 14:57:40 SARS-COV-2 (COVID-19) vaccine, UNSPECIFIED 3 completed Eulalia Prateek null, [facility] 03/26/2024 14:57:48 zoster, unspecified formulation 3 completed Eulalia brasher [facility] 03/26/2024 14:58:02 zoster, unspecified formulation 3 completed Eulalia brasher [facility] 03/26/2024 14:58:10 Past Encounters Encounter ID Performer Location Encounter Start Date Encounter Closed Date Diagnosis/Indication Diagnosis SNOMED-CT Code Diagnosis ICD10 Code Diagnosis Note [id number] JAVY MABRY NP [address] [address] 03/23/2024 14:38:33 03/25/2024 12:39:17 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 monitor for any signs of withdrawlf olic 1 mg dailyNaltr exone 60 mg dailyThiam ine 100 mg dailyMag ox 400 mg dailymvi dailyVit C 500 dailyBuspa r 10 mg bidCymbalt a 60 mg dailyWellb utrin 150 mg daily Osteomyelitis 97200555 M 86.9 Doxycyline 100 mg bid to 03/25monit or for any signs of infections [place] wound of skin 28289 71059 01 T14.8XXA Doxycyline 100 mg bid to 03/25monit or for any signs of infections wound consult [place] 279883050 R29.6 PTOT eval and treatfall precaution sfrequent safety checks Atrial fibrillation 4943 6004 I48.91 Diltiazem er 180 mg dailyMetop rolol 25 mg bidmonitor heart rate Essential hypertension 23472735 I10 Diltiazem er 180 mg dailyMetop rolol 25 mg bidmonitor bp Hyperlipidemia 70420801 E78.5 atorvastat in 20 mg daily Type 2 dylon betes mellitus 69880779 E11.9 monitor glucose [id number] Jatin Landis MD [address] [address] 03/25/2024 10:05:56 03/26/2024 13:18:46 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 F10.132 see HPIcontinu ed on thiamine and supplement [facility] be involved at [facility] nitor need for increased support in community Osteomyelitis 67284607 M 86.052 carrying dx left chronic osteo at [facility] sitestarte d empiricall y on doxy through 03/25repea t cbcID / ortho eval prnmonitor siteupdate ortho with concerns Open wound of skin 70906 08405 01 T14.8XXA see above with chronic infection Atrial fibrillation 4943 6004 I48.0 pradaxa 150 mg bidmetopro lol 25 mg bidmonitor for rate control Essential hypertension 69017809 I10 Diltiazem 180 mg qdlisinopr il 10 mg qdMetoprol ol 25 mg bidmonitor bp and need to titrate Hyperlipidemia 08039459 E78.2 lipitor 20 mg qdcontinue d Type 2 dylon betes mellitus 45285123 E11.9 diet controlled now off metforminm ost recent hba1c wnrmonitor accucheck prn Asthenia 84309198 R53.1 weakness and gait instabilit yPT OT Eval and treatmonit or fall risk and need for increased support in community Marginal z one lymphoma 967730939 C83.07 carrying dx added to PMHlimited informatio n availabler equest prior notes from PCP Benign pro static hyperplasia without outflow obstruction 104034207 N40.0 added to PMHmonitor for retention [id number] [facility] [address] 03/28/2024 16:08:27 03/29/2024 11:48:40 Harmful pattern of use of alcohol 77077899 F10.132 see HPInaltrex one 50 mg po qdcontinue d on thiamine and supplement [facility]'d [facility] for increased support in community Osteomyelitis 71334314 M 86.052 carrying dx left chronic osteo at [facility] sitecomple nori doxy empiricall y through 03/25ID / ortho eval prnmonitor siteupdate ortho with concerns Open wound of skin 93492 71328 01 T14.8XXA see above with chronic infection Asthenia 18832904 R53.1 weakness and gait instabilit yPT OT Eval and treatmonit or fall risk and need for increased support in community Atrial fibrillation 4943 6004 I48.0 contpradax a 150 mg bidmetopro lol 25 mg bidmonitor for rate control Essential hypertension 50535448 I10 controlled contDiltia zem 180 mg qdlisinopr il 10 mg qdMetoprol ol 25 mg bidmonitor bp and need to titrate Hyperlipidemia 14808010 E78.2 lipitor 20 mg qdcontinue d Type 2 dylon betes mellitus 68327180 E11.9 diet controlled , reportedha d low BS in hospital with possible low BS related to skin conditionn ow off metforminm ost recent hba1c wnrmonitor accucheck prn Marginal z one lymphoma 046662220 C83.07 with hx oflimited informatio n availablef u with oncology 04/05 Atopic dermatitis 425563 01 L20.9 pt with notable scab like [...] cular 04/11 @ 13pm. Rheumatoid arthritis 698 86656 M06.9 he denies arthritis today however has likely underlying arthritisf u with Rheumatoid appt with Dr Hart 07/04 @ 11am. [id number] Jasmin La NP [address] [address] 04/05/2024 12:48:06 04/09/2024 09:15:27 Atopic dermatitis 01277997 L20.9 pt with notable scab like ulceration [...] Harmful pa ttern of use of alcohol 38378427 F10.132 see HPInaltrex one 50 mg po qdcontinue d on thiamine and supplement seval'd by addiction services [facility] to [facility] at [facility] nitor need for increased support in community Osteomyelitis 95317599 M 86.052 carrying dx [facility] nori doxy empiricall y through 03/25ID / ortho eval prnmonitor site for s/s infectionu pdate ortho with concerns Open wound of skin 70406 43120 01 T14.8XXA see above with chronic infection Asthenia 29637667 R53.1 weakness and gait instabilit yPT OT Eval and treatmonit or fall risk and need for increased support in community Atrial fibrillation 4943 6004 I48.0 contpradax a 150 mg bidmetopro lol 25 mg bidmonitor for rate control Essential hypertension 42037750 I10 controlled contDiltia zem 180 mg qdlisinopr il 10 mg qdMetoprol ol 25 mg bidmonitor bp and need to titrate Hyperlipidemia 55371245 E78.2 lipitor 20 mg qdcontinue d Type 2 dylon betes mellitus 04261017 E11.9 diet controlled , reportedha d low BS in hospital with possible low BS related to skin conditionn ow off metforminm ost recent hba1c wnrmonitor accucheck prn Marginal z one lymphoma 586187493 C83.07 with hx oflimited informatio n availablef u with oncology 04/05result s and consult pending Rheumatoid arthritis 698 52519 M06.9 he denies arthritis today however has likely underlying arthritisf u with Rheumatoid appt with Dr Hart 07/04 @ [facility]. [id number] Jasmin La NP [address] [address] 04/12/2024 09:03:45 04/15/2024 16:27:46 Osteomyelitis 49088847 M86.052 resolvedca rrying dx left chronic osteo at [facility] sitecomple nori doxy empiricall y through 03/25ID / ortho eval prnmonitor site for s/s infection outpt with pcpupdate ortho with concerns outpt prn Atopic dermatitis 345248 01 L20.9 mostly resolvedpt with notable scab like ulceration s and peeling of skin in webs of fingers now resolvingc ont triamcinol one 0.5% oint 1 dime size area to affected hands until resolved, will go home with tube for a few more daysmonito r for changes outpt with pcp Harmful pa ttern of use of alcohol 29555530 F10.132 see HPInaltrex one 50 mg po qdcontinue d on thiamine and supplement seval'd by addiction services in [facility] need for increased support in community outpt with vna and pcp services in place, also reports a cleaning service helps him Open wound of skin 19060 88022 01 T14.8XXA see above with chronic infection now resolvedfu with wound outpt, wound almost healed Asthenia 07801903 R53.1 seems back to baselinePT OT Eval and treat outpt prnmonitor fall risk and need for increased support in communityv na services in place per rn social services Atrial fibrillation 4943 6004 I48.0 contpradax a 150 mg bidmetopro lol 25 mg bidmonitor for rate control outpt with pcp Essential hypertension 79797687 I10 controlled contDiltia zem 180 mg qdlisinopr il 10 mg qdMetoprol ol 25 mg bidmonitor bp and need to titrate outpt with pcp Hyperlipidemia 85551908 E78.2 lipitor 20 mg qdmonitor outpt with pcp Type 2 dylon betes mellitus 77043054 E11.9 diet controlled , reportedno w off metforminm ost recent hba1c wnrBS very stable heremonito r accucheck prn outpt with pcp Marginal z one lymphoma 221956807 C83.07 with hx oflimited informatio n availablef u with oncology prn outptconsu lt note not received here from 04/05 appt Rheumatoid arthritis 698 55770 M06.9 he denies arthritis today however has likely underlying arthritisf u with Rheumatoid appt with Dr Hart 07/04 @ 11am as scheduled Peripheral arterial insufficiency 9040942791 25487 I73.9 with L BKA and osteo healednote [...] ID Guarantor Name 03/23/2024 1 [place] [employer] [facility] Ashley Francis [id number] Ashley Francis 03/25/2024 1 [place] [facility] Ashley Francis [id number] Ashley Francis 03/25/2024 2 MEDICAID-[place]: [facility] Ashley Francis [id number] Ashley Francis 03/28/2024 1 [place] [facility] Ashley Francis [id number] Ashley Francis 03/28/2024 2 MEDICAID-[place]: [facility] Ashley Francis [id number] Ashley Francis 04/05/2024 1 [employer] (MEDICARE REPLACEMENT PPO) [id number] Ashley Francis [id number] Ashley Francis 04/12/2024 1 [employer] (MEDICARE REPLACEMENT PPO) [id number] Ashley Francis [id number] Ashley Francis Notes Date Note Type Note [...] subject to another. JAVY MABRY NP [address] [facility], [address], [place], [address], [facility] 03/23/2024 15:11:32 4 text/htm l Patient [...] care and therapy Jatin Landis MD [address] [facility], [address], [place], [address], [facility] 03/25/2024 10:32:21 5 text/htm l Pt [...] appt was taken. Jasmin La, DAVIDA [address] [facility], [address], [place], [address], [employer] [facility] 03/28/2024 19:26:02 5 text/htm l Pt is [...] appt was taken. Jasmin La, DAVIDA [address] [facility], [address], [place], [address], [facility] 04/05/2024 20:47:53 5 text/htm l Pt is seen for a discharge visit. [...] prep qd to Left BKA. While at [facility]: Ashley has been fu with appointments: [...] fu soon. Pt has been ambulating with Lizzy WEBB, FWW, per therapy here. He was [...] and scale resolved. Jasmin La NP [address] [facility], [address], [place], [address], [facility] - [facility] 04/12/2024 10:20:27
--- OUTSIDE RECORDS SUMMARY | 2024-07-29 15:16 | XMS_ITS | Encounter Summary ---
Author Organization [facility] Address [address] [place] [address] Care Team Providers Care Home Teaching Grades 9 Thru 12 Teacher Name Role Phone Jatin Landis MD Primary Care Provider [phone] Encounter Details Date Type Department Care Team (Late st Contact Info) Description 03/25/2024 Lab Requisition [facility] - Main Lab 299 [facility] [place] [address] Jatin Landis MD [address] [place] [address] [address] [place], [phone] Chronic kidney disease, unspecified; Local infection [...] CBC auto differential (03/25/2024 5:17 AM EST) [facility] WBC 7.3 4.8 - 10.8 K/mcL LAB HEMETOLOGY METHOD 03/25/2024 9:28 AM [facility] LAB RBC 3.70(L) 4.50 - 5.50 M/mcL LAB HEMETOLOGY METHOD 03/25/2024 9:28 AM [facility] LAB Hemoglobin 12.7(L) 13.5 - 17.5 g/dL LAB HEMETOLOGY METHOD 03/25/2024 9:28 AM [facility] LAB Hematocrit 38.6(L) 42.0 - 54.0 % LAB HEMETOLOGY METHOD 03/25/2024 9:28 AM [facility] LAB MCV 103.8(H) 79.0 - 98.0 FL LAB HEMETOLOGY METHOD 03/25/2024 9:28 AM [facility] LAB MCH 34.1(H) 27.0 - 32.0 pcg LAB HEMETOLOGY METHOD 03/25/2024 9:28 AM [facility] LAB MCHC 32.9 32.0 - 37.0 g/dL LAB HEMETOLOGY METHOD 03/25/2024 9:28 AM [facility] LAB RDW 13.8 11.0 - 15.0 % LAB HEMETOLOGY METHOD 03/25/2024 9:28 AM [facility] LAB Platelets 310 130 - 400 K/mcL LAB HEMETOLOGY METHOD 03/25/2024 9:28 AM [facility] LAB MPV 10.5 7.0 - 11.0 FL LAB HEMETOLOGY METHOD 03/25/2024 9:28 AM [facility] LAB NRBC 0.0 <1.0 % LAB HEMETOLOGY METHOD 03/25/2024 9:28 AM [facility] LAB NRBC Absolute 0.00 <0.10 K/mcL LAB HEMETOLOGY METHOD 03/25/2024 9:28 AM [facility] LAB Neutrophils Relative 57.3 % LAB HEMETOLOGY METHOD 03/25/2024 9:28 AM [facility] LAB Lymphocytes Relative 19.1 % LAB HEMETOLOGY METHOD 03/25/2024 9:28 AM [facility] LAB Monocytes Relative 17.7 % LAB HEMETOLOGY METHOD 03/25/2024 9:28 AM [facility] LAB Eosinophils Relative 4.1 % LAB HEMETOLOGY METHOD 03/25/2024 9:28 AM [facility] Basophils Relative 1.4 % LAB HEMETOLOGY METHOD 03/25/2024 9:28 AM [facility] Immature Granulocytes Relative 0.4 % LAB HEMETOLOGY METHOD 03/25/2024 9:28 AM [facility] LAB Neutrophils Absolute 4.17 1.50 - 7.00 K/mcL LAB HEMETOLOGY METHOD 03/25/2024 9:28 AM [facility] LAB Lymphocytes Absolute 1.39 1.00 - 5.00 K/mcL LAB HEMETOLOGY METHOD 03/25/2024 9:28 AM [facility] Monocytes Absolute 1.29(H) 0.20 - 1.00 K/mcL LAB HEMETOLOGY METHOD 03/25/2024 9:28 AM [facility] LAB Eosinophils Absolute 0.30 0.00 - 0.50 K/mcL LAB HEMETOLOGY METHOD 03/25/2024 9:28 AM [facility] Basophils Absolute 0.10 0.00 - 0.20 K/mcL LAB HEMETOLOGY METHOD 03/25/2024 9:28 AM [facility] LAB Immature Granulocytes Absolute 0.03 0.00 - 0.03 K/mcL LAB HEMETOLOGY METHOD 03/25/2024 9:28 AM [facility] LAB Blood Venous blood specimen / Unknown Venipuncture / Unknown 03/25/2024 5:17 AM EST 03/25/2024 9:03 AM EST us Jatin Landis MD LAB BLOOD ORDERABLES Final Resul t Performing Organization Address [facility]/ZIP Co de Phone Number [facility] [address] [place] [address], [place] [phone] * (ABNORMAL) C-reactive protein (03/25/2024 5:17 AM EST) Pathologist [facility] [place] C-Reactive Protein 1.04(H) <=0.50 mg/dL LAB CHEMISTRY METHOD 03/25/2024 9:46 AM [facility] Blood Venous blood specimen / Unknown Venipuncture / Unknown 03/25/2024 5:17 AM EST 03/25/2024 9:03 AM EST Jatin Landis MD LAB BLOOD ORDERABLES Final Resul t Performing Organization Address [facility]/ZIP Co de Phone Number [facility] [address] [place] [address], [place] [phone] * (ABNORMAL) Comprehensive metabolic panel (03/25/2024 5:17 AM EST) Pathologist [facility] [place] Sodium 141 133 - 145 mmol/L LAB CHEMISTRY METHOD 03/25/2024 9:46 AM [facility] Potassium 4.2 3.5 - 5.5 mmol/L LAB CHEMISTRY METHOD 03/25/2024 9:46 AM [facility] Chloride 106 96 - 110 mmol/L LAB CHEMISTRY METHOD 03/25/2024 9:46 AM [facility] CO2 27 21 - 32 mmol/L LAB CHEMISTRY METHOD 03/25/2024 9:46 AM [facility] Anion Gap 8 3 - 11 LAB CHEMISTRY METHOD 03/25/2024 9:46 AM [facility] Glucose 77 70 - 100 mg/dL LAB CHEMISTRY METHOD 03/25/2024 9:46 AM [facility] BUN 17 5 - 25 mg/dL LAB CHEMISTRY METHOD 03/25/2024 9:46 AM [facility] LAB Creatinine 0.76 0.70 - 1.30 mg/dL LAB CHEMISTRY METHOD 03/25/2024 9:46 AM [facility] LAB eGFR 99 >=60 mL/min/1. 73m2 LAB CHEMISTRY METHOD 03/25/2024 9:46 AM [facility] LAB Comment:Calculation based on the??Chronic Kidney Disease Epidemiology Collaboration (CKD-EPI) equation refit??without adjustment for race. BUN/Creatinine Ratio 22.4 LAB CHEMISTRY METHOD 03/25/2024 9:46 AM [facility] Calcium 9.0 8.5 - 10.5 mg/dL LAB CHEMISTRY METHOD 03/25/2024 9:46 AM [facility] LAB AST (SGOT) 24 10 - 42 unit/L LAB CHEMISTRY METHOD 03/25/2024 9:46 AM [facility] ALT (SGPT) 20 10 - 60 unit/L LAB CHEMISTRY METHOD 03/25/2024 9:46 AM [facility] Alkaline Phosphatase 176(H) 42 - 121 unit/L LAB CHEMISTRY METHOD 03/25/2024 9:46 AM [facility] Total Protein 5.7(L) 6.0 - 8.0 g/dL LAB CHEMISTRY METHOD 03/25/2024 9:46 AM [facility] Albumin 3.3 3.2 - 5.0 g/dL LAB CHEMISTRY METHOD 03/25/2024 9:46 AM [facility] Total Bilirubin 0.3 0.0 - 1.4 mg/dL LAB CHEMISTRY METHOD 03/25/2024 9:46 AM [facility] LAB Blood Venous blood specimen / Unknown Venipuncture / Unknown 03/25/2024 5:17 AM EST 03/25/2024 9:03 AM EST Jatin Landis MD LAB BLOOD ORDERABLES Final Resul t [facility] [address] [place] [address], documented in this encounter Visit Diagnoses Diagnosis Chronic kidney disease, unspecified Local infection of the skin and subcutaneous tissue, unspecified documented in this encounter Care Teams Home Teaching Grades 9 Thru 12 Teacher Relationship Specialty Start Date End Date Jatin Landis MD [address] [place] [address], [phone] PCP - General Family Medicine 03/25/24 documented as of this encounter
--- OUTSIDE RECORDS SUMMARY | 2024-07-29 15:16 | XMS_ITS | Clinical Summary ---
Author Organization [address] [facility] Address [address] [place] [address] Phone Care Team Providers Care Sat Math Tutor Name Role Phone Jatin Landis MD Primary Care Provider [phone] Social History Tobacco Use Types Packs/Day Years [...] LAB CHEMISTRY METHOD 04/08/2024 11:16 AM EST [facility] Potassium 4.5 3.5 - 5.5 mmol/L LAB CHEMISTRY METHOD 04/08/2024 11:16 AM EST [facility] Chloride 108 96 - 110 mmol/L LAB CHEMISTRY METHOD 04/08/2024 11:16 AM EST [facility] CO2 25 21 - 32 mmol/L LAB CHEMISTRY METHOD 04/08/2024 11:16 AM EST [facility] Anion Gap 8 3 - 11 LAB CHEMISTRY METHOD 04/08/2024 11:16 AM EST [facility] Glucose 98 70 - 100 [...] ORDERABLES Final Resul t FRANCIS CHUA [place] ([facility]) [facility] [address] [place] [address], [place] [phone] from Last 3 Months or Most Recently Relevant to Health Maintenance Insurance MEDICARE [employer] MED[employer]ARE ADVANTAGE Care Teams Sat Math Tutor Relationship Specialty Start Date End Date Jatin Landis MD [address] [place] [address] [address] [place], [phone] PCP - General Family Medicine 03/25/24
--- OUTSIDE RECORDS SUMMARY | 2024-07-29 15:16 | XMS_ITS | Encounter Summary ---
Author Organization [employer] Address [address] [place] [address] Care Team Providers Care Jumpbasting Lining Baster Name Role Phone Jatin Landis MD Primary Care Provider [phone] Encounter Details Date Type Department Care Team (Late st Contact Info) Description 04/08/2024 Lab Requisition [facility] - Main Lab 299 [facility] [email or web address] [address] Jatin Landis MD [address] [place] [address], [phone] Non-pressure chronic ulcer of unspecified part [...] MD LAB BLOOD ORDERABLES Final Resul t [facility] [address] [place] [address], [place] [phone] * (ABNORMAL) Comprehensive metabolic panel (04/08/2024 4:52 AM EST) Pathologist [facility] Sodium 141 133 - 145 mmol/L LAB CHEMISTRY METHOD 04/08/2024 11:16 AM [facility] LAB Potassium 4.5 3.5 - 5.5 mmol/L LAB CHEMISTRY METHOD 04/08/2024 11:16 AM [facility] LAB Chloride 108 96 - 110 mmol/L LAB CHEMISTRY METHOD 04/08/2024 11:16 AM [facility] LAB CO2 25 21 - 32 mmol/L LAB CHEMISTRY METHOD 04/08/2024 11:16 AM [facility] LAB Anion Gap 8 3 - 11 LAB CHEMISTRY METHOD 04/08/2024 11:16 AM [facility] LAB Glucose 98 70 - 100 mg/dL LAB CHEMISTRY METHOD 04/08/2024 11:16 AM [facility] LAB BUN 15 5 - 25 mg/dL LAB CHEMISTRY METHOD 04/08/2024 11:16 AM [facility] LAB Creatinine 0.73 0.70 - 1.30 mg/dL LAB CHEMISTRY METHOD 04/08/2024 11:16 AM [facility] LAB eGFR 100 >=60 mL/min/1. 73m2 LAB CHEMISTRY METHOD 04/08/2024 11:16 AM [facility] LAB Comment:Calculation based on the??Chronic Kidney Disease Epidemiology Collaboration (CKD-EPI) equation refit??without adjustment for race. BUN/Creatinine Ratio 20.5 LAB CHEMISTRY METHOD 04/08/2024 11:16 AM [facility] LAB Calcium 9.0 8.5 - 10.5 mg/dL LAB CHEMISTRY METHOD 04/08/2024 11:16 AM [facility] LAB AST (SGOT) 24 10 - 42 unit/L LAB CHEMISTRY METHOD 04/08/2024 11:16 AM [facility] ALT (SGPT) 39 10 - 60 unit/L LAB CHEMISTRY METHOD 04/08/2024 11:16 AM [facility] LAB Comment:Results verified by repeat testing Alkaline Phosphatase 138(H) 42 - 121 unit/L LAB CHEMISTRY METHOD 04/08/2024 11:16 AM [facility] LAB Total Protein 6.1 6.0 - 8.0 g/dL LAB CHEMISTRY METHOD 04/08/2024 11:16 AM [facility] LAB Albumin 3.5 3.2 - 5.0 g/dL LAB CHEMISTRY METHOD 04/08/2024 11:16 AM [facility] LAB Total Bilirubin 0.3 0.0 - 1.4 mg/dL LAB CHEMISTRY METHOD 04/08/2024 11:16 AM [facility] Blood Venous blood specimen / Unknown Venipuncture / Unknown 04/08/2024 4:52 AM EST 04/08/2024 9:04 AM EST us Jatin Landis MD LAB BLOOD ORDERABLES Final Resul t [facility] [address] [place] [address], * (ABNORMAL) Complete blood count (04/08/2024 4:52 AM EST) WBC 5.7 4.8 - 10.8 K/mcL LAB HEMETOLOGY METHOD 04/08/2024 10:00 AM [facility] RBC 4.20(L) 4.50 - 5.50 M/mcL LAB HEMETOLOGY METHOD 04/08/2024 10:00 AM [facility] LAB Hemoglobin 14.2 13.5 - 17.5 g/dL LAB HEMETOLOGY METHOD 04/08/2024 10:00 AM [facility] LAB Hematocrit 42.2 42.0 - 54.0 % LAB HEMETOLOGY METHOD 04/08/2024 10:00 AM [facility] LAB MCV 100.5(H) 79.0 - 98.0 FL LAB HEMETOLOGY METHOD 04/08/2024 10:00 AM [facility] LAB MCH 33.8(H) 27.0 - 32.0 pcg LAB HEMETOLOGY METHOD 04/08/2024 10:00 AM [facility] LAB MCHC 33.6 32.0 - 37.0 g/dL LAB HEMETOLOGY METHOD 04/08/2024 10:00 AM [facility] LAB RDW 13.3 11.0 - 15.0 % LAB HEMETOLOGY METHOD 04/08/2024 10:00 AM [facility] LAB Platelets 330 130 - 400 K/mcL LAB HEMETOLOGY METHOD 04/08/2024 10:00 AM [facility] LAB MPV 10.8 7.0 - 11.0 FL LAB HEMETOLOGY METHOD 04/08/2024 10:00 AM [facility] LAB NRBC 0.0 <1.0 % LAB HEMETOLOGY METHOD 04/08/2024 10:00 AM EST [facility] ([facility] LAB NRBC Absolute 0.00 <0.10 K/mcL LAB HEMETOLOGY METHOD 04/08/2024 10:00 AM EST [facility] Blood Venous blood specimen / Unknown Venipuncture / Unknown 04/08/2024 4:52 AM EST 04/08/2024 9:04 AM EST us Jatin Landis MD LAB BLOOD ORDERABLES Final Resul t [facility] ([facility]) [facility] [address] [place] [address], documented in this encounter Visit Diagnoses Diagnosis Non-pressure chronic ulcer of unspecified part of left lower leg with unspecified severity (CMS/HCC V24, CMS/HCC V28) Infection of amputation stump, left lower extremity (CMS/HCC V24, CMS/HCC V28) Other toxic encephalopathy documented in this encounter Care Teams Jumpbasting Lining Baster Relationship Specialty Start Date End Date Jatin Landis MD [address] [place] [address], [phone] PCP - General Family Medicine 03/25/24 documented as of this encounter
--- OUTSIDE RECORDS SUMMARY | 2024-07-29 15:16 | XMS_ITS | Data Portability ---
Author Organization [email or web address] Address [address] [place] [phone] Care Team Providers Care Fiber Glass Worker Name Role Phone HIM MARY OTHER Assessment [...] Not available Not available Not available 01/23/2024 [id number] RxNorm Not Available [facility] - production 4 03:38:22 7568 Bactrim medicatio n Not available Not available Not available 01/23/2024 [id number] RxNorm Not Available [facility] - production [...] /min 187.96 cm 100 % 100 % 42566.4 4 g 99.5 [degF] 18 /min 185 mm[Hg] 98 mm[Hg] Not Available [facility] - production 4 18:00:42 Social History None recorded. Functional Status None recorded. Mental Status None recorded. Family History Nothing Reported. Medical History No medical history recorded. Past Encounters Encounter ID Performer Location Encounter Start Date Encounter Closed Date Diagnosis/Indication Diagnosis SNOMED-CT Code Diagnosis ICD10 Code Diagnosis Note [id number] Carlos Loo MD Main - [facility] [address] [place] [phone] 09/12/2023 18:00:34 09/12/2023 21:22:44 Open wound of lower leg [id number] S81.802A Health Concerns Section Related Observation LastModified by Organization Detai ls LastModified Time None Recorded Concern Status LastModified by Organization Details LastModified Time None Recorded Advance Directives Directive None Recorded Payers Encounter Date Sequence Insurance Name Policy Number Policy Alba Covered Member ID Alba Member ID Guarantor Name 09/12/2023 1 [facility] - DOS ON OR AFTER 2022 - DUAL ELIGIBLE - GROUP HOME OPTIONS AND ONE CARE (MEDICARE REPLACEMENT/ADV ANTAGE - HMO) Ashley Francis [id number] Ashley Francis Notes Date Note Type Note Provider Name and Address Organization Details Recorded Time 09/12/2023 text/html CRC Nurse Triage Notes (Kristin Aguila): Reason For Request: [facility] member academic services professional Magaly reporting mbr is requesting [facility] for [...] .................... .................... .................... .................... .................... .................... . Cap Inspector Note From Mera Mukherjee: Sent to a [...] .................... .................... . Disposition: Musa Loo MD [address] [place] [address],[address], [place], [address], NNAMDI Volt GRACE 09/12/2023 19:31:35
--- OUTSIDE RECORDS SUMMARY | 2024-07-29 15:16 | XMS_ITS | Clinical Summary ---
Author Organization [facility] Address [address] [place] [address] Care Team Providers Care Sprinkling Truck Driver Name Role Phone Nikole Mauricio Primary Care Provider [phone] Allergies Active Allergy Reactions Criticality Noted Date [...] complete [place] [id number] MEDICARE Care Teams Sprinkling Truck Driver Relationship Specialty Start Date End Date Nikole Mauricio [address] [facility] NNAMDI [place]AND [address] PCP - General Internal Medicine 01/02/24
--- NOTE | 2024-07-29 15:55 | ECG_ITS ---
Test Reason : TACHY Blood Pressure : */* mmHG Vent. Rate : 124 BPM Atrial Rate : * BPM P-R Int : * ms QRS Dur : 84 ms QT Int : 288 ms P-R-T Axes : * -33 94 degrees QTcB Int : 413 ms Atrial fibrillation with rapid ventricular response Left axis deviation Septal infarct (cited on or before 07-Dec-2015) Abnormal ECG When compared with ECG of 08-Jul-2024 13:29, No significant change was found Referred By: Magaly Jameson Electronically Signed By: SLOANE POSADA
[2024-07-29] MEDS: dilTIAZem HCL 50 MG/10 ML VIAL 10 MG IVPUSH (16:21)
[2024-07-29] MEDS: dilTIAZem HCL CD 180 MG CAP.ER.24H PO (17:03)
[2024-07-29] MEDS: Digoxin 0.125 MG TABLET PO (17:03)
[2024-07-29] MEDS: Acetaminophen 325 MG TABLET 975 MG PO (18:56)
[2024-07-29] MEDS: 0.9 % Sodium Chloride 1,000 ML 999 ML IV (18:56)
--- NOTE | 2024-07-29 19:06 | PM.IMHP ---
History of Present Illness Date of Service: 07/29/24 Chief Complaint: Extremity redness This is a 69-year-old male with pertinent history of persistent atrial fibrillation on Pradaxa, peripheral vascular disease status post left BKA, hypertension, mixed hyperlipidemia, alcohol use disorder with history of withdrawals, marginal zone lymphoma status post appendectomy, coronary artery disease, mood disorder, gout, BPH, pso-mwzqzkt-bcyltlnri type 2 diabetes mellitus, EMIL not compliant with CPAP who presents to the emergency department for evaluation of left lower extremity redness. Patient states he has been wearing his prosthesis and noticed redness around the site of BKA about few days prior to presentation. Patient tried home Augmentin without any improvement in symptoms. States the redness, pain and warmth have been increasing over his left lower extremity around BKA site and posterior to the knee. Patient does have a history of alcohol withdrawal and states his last drink was 10-12 hours prior to presentation. No history of alcohol withdrawal seizures. Does complain of palpitations but no chest pain or shortness of breath. Also states he is having a difficult time as he is in the process of selling his house and getting . No fever, chills, nausea, vomiting, abdominal pain, changes in urinary or bowel habits. In the emergency department, patient was initiated on IV diltiazem drip for AFib with RVR. Initiated on phenobarb protocol for alcohol use disorder. Given empiric IV antibiotics for lower leg cellulitis Review of Systems Constitutional: Constitutional: Reports fatigue, Reports malaise and Reports weakness Cardiovascular: Cardiovascular: Reports irregular heart rhythm and Reports palpitations Respiratory: Respiratory: Reports no additional respiratory complaints Gastrointestinal: Gastrointestinal: Reports no additional gastrointestinal complaints Genitourinary: Genitourinary: Reports no additional male genitourinary complaints Neurologic: Reports weakness Endocrine: Endocrine: Reports fatigue and Reports palpitations [facility] Medical History Venous stasis ulcers Alcohol withdrawal PAF (paroxysmal atrial fibrillation) Weakness Rosacea Annual physical exam Depression Essential hypertension Hyperlipidemia LDL goal <100 Obesity due to excess calories BMI 30.0-30.9,adult ETOH abuse BPH associated with nocturia CAD (coronary artery disease) Long-term current use of intravenous immunoglobulin (IVIG) GERD (gastroesophageal reflux disease) Hypogammaglobulinemia Diabetic eye exam Adjustment disorder Gout Chronic osteomyelitis Splenic marginal zone b-cell lymphoma EMIL (obstructive sleep apnea) Family History Father Diabetes Mother Liver cancer Maternal Grandfather CVD (cardiovascular disease) Brother Myocardial infarction Surgical History Status post below-knee amputation of left lower extremity Osteomyelitis Osteomyelitis History of esophagogastroduodenoscopy (EGD) History of colonoscopy History of bunionectomy History of cardiac cath Social History Household Members: None Housing: House Do you presently have visiting nurse or other home services: Yes Alcohol intake: current Alcohol intake frequency: 3 or more drinks per day Alcohol type: hard liquor Comment: sitter in room / video Patient Tobacco Use Status: Never used Tobacco Smoked in Last 30 Days: No e-Cigarette/Vaping Use: Never Used Second Hand Smoke Exposure: No Use of substances other than those prescribed or required for medical reasons: No Advance Directives: Yes Advance Directives on File: Yes Advance Directives Date on File: 10/10/23 Do you have a plan to hurt others: No Plan service: No Current occupational status: employed 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 Cognitive needs: No Hearing needs: No Vision needs: Yes Meds Allergies Allergy/AdvReac Type Severity Reaction Status Date / Time vancomycin [VANCOMYCIN] Allergy Severe ANGIOEDEMA Verified 07/29/24 13:21 Sulfa (Sulfonamide Allergy Intermediate Rash Verified 07/29/24 13:21 Antibiotics) sulfamethoxazole Allergy rash Verified 07/29/24 13:21 [From Bactrim] trimethoprim [From Bactrim] Allergy Rash Verified 07/29/24 13:21 Active Medications: Current Medications Acetaminophen (Acetaminophen 325 Mg Tablet) 650 mg PO Q6H PRN PRN Reason: Pain, Mild 1-3,fever,headache Allopurinol (Allopurinol 100 Mg Tablet) 200 mg PO DAILY [facility] Ascorbic Acid (Ascorbic Acid 500 Mg Tablet) 500 mg PO DAILY [facility] Atorvastatin Calcium (Atorvastatin Calcium 20 Mg Tablet) 20 mg PO BEDTIME [facility] Bupropion HCl (Bupropion Hcl Xl 150 Mg Tab.Er.24h) 150 mg PO DAILY [facility] Buspirone HCl (Buspirone Hcl 10 Mg Tablet) 10 mg PO BID [facility] Calcium Carbonate (Calcium Carbonate 750 Mg Tab.Chew) 750 mg PO Q4H PRN PRN Reason: Heartburn Clotrimazole (Clotrimazole 1 % Cream 15 Gm Tube) 1 appl TOPICAL BID [facility]; Protocol Dabigatran (Dabigatran Etexilate Mesylate 150 Mg Capsule) 150 mg PO BID [facility] Digoxin (Digoxin 0.125 Mg Tablet) 0.125 mg PO DAILY [facility]; Protocol Last Admin: 07/29/24 17:03 Dose: 0.125 mg Diltiazem HCl (Diltiazem Hcl Cd 180 Mg Cap.Er.24h) 180 mg PO DAILY [facility]; Protocol Last Admin: 07/29/24 17:03 Dose: 180 mg Duloxetine HCl (Duloxetine Hcl 60 Mg Capsule.Dr) 60 mg PO DAILY [facility] Folic Acid (Folic Acid 1 Mg Tablet) 1 mg PO DAILY [facility] Sodium Chloride (Ns) 1,000 mls @ 999 mls/hr IV .Q1H1M ONE Stop: 07/29/24 19:25 Last Admin: 07/29/24 18:56 Dose: 999 mls/hr Diltiazem HCl 125 mg/ Sodium (Chloride) 125 mls @ 0 mls/hr IVCONT .Q0M [facility]; Protocol Magnesium Hydroxide (Milk Of Magnesia 30 Ml Oral.Susp) 30 ml PO DAILY PRN PRN Reason: Constipation Melatonin (Melatonin 3 Mg Tablet) 6 mg PO BEDTIME PRN PRN Reason: Insomnia Metoprolol Tartrate (Metoprolol Tartrate 50 Mg Tablet) 50 mg PO BID [facility]; Protocol Metronidazole (Metronidazole 0.75 % Gel 45 Gm Tube) 1 appl TOPICAL BID [facility] Multivitamins/Vitamin C (Multivitamin Tablet) 1 tab PO DAILY [facility] Naltrexone HCl (Naltrexone Hcl 50 Mg Tablet) 50 mg PO DAILY [facility] Naproxen (Naproxen 500 Mg Tablet) 500 mg PO BID [facility] Non-Formulary Medication (Hydrocortisone Valerate) 1 appl TOPICAL BID PRN PRN Reason: rash Ondansetron HCl (Ondansetron Hcl 4 Mg/2 Ml Vial) 4 mg IVPUSH Q8H PRN PRN Reason: Nausea and Vomiting Pharmacy Consult (Consult Rx Etoh Phenob Im/Po) 1 each MISCELLANE ONCE PRN; Protocol PRN Reason: Consult order Sodium Chloride (0.9 % Sodium Chloride Flush 3 Ml Syringe) 3 ml IVFLUSH QSHIFT [facility] Thiamine HCl (Thiamine Hcl 100 Mg Tablet) 100 mg PO DAILY [facility] Thiamine HCl (Thiamine Hcl 100 Mg Tablet) 100 mg PO ONCE ONE Stop: 07/29/24 19:06 Home Medications ?Medication ?Instructions ?Recorded ?Confirmed ?Last Taken ?Type duloxetine 60 mg capsule,delayed 60 mg PO DAILY 12/21/19 07/29/24 07/28/24 History release multivitamin 1 tab PO DAILY 02/27/20 07/29/24 07/28/24 History allopurinol 100 mg tablet 200 mg PO DAILY 02/08/21 07/29/24 07/28/24 History naltrexone 50 mg tablet 50 mg PO DAILY Alcohol Withdrawal 08/24/22 07/29/24 07/28/24 History bupropion HCl 150 mg 24 hr tablet, 150 mg PO DAILY 06/01/23 07/29/24 07/28/24 History extended release buspirone 10 mg tablet 10 mg PO BID 10/06/23 07/29/24 07/28/24 History digoxin 125 mcg (0.125 mg) tablet 125 mcg PO DAILY 07/08/24 07/29/24 07/28/24 History metoprolol tartrate 50 mg tablet 50 mg PO BID 07/08/24 07/29/24 07/28/24 History naproxen 500 mg tablet 500 mg PO BID 07/08/24 07/29/24 07/28/24 History Physical Exam Vital Signs and Narrative: Vital Signs: Last Vital Signs Temp 99.0 F 07/29/24 15:55 Pulse 120 H 07/29/24 17:03 Resp 16 07/29/24 17:00 BP 168/88 H 07/29/24 17:03 Pulse Ox 97 07/29/24 17:00 O2 Del Method Room Air 07/29/24 17:00 BMI result Body Mass Index 29.7 Middle-aged male lying in bed in no distress Neck supple, no JVD Irregularly irregular, S1-S2 heard Regular breath sounds bilaterally, no wheezing or crackles appreciated Abdomen soft nontender, no guarding, no rigidity Patient is awake, alert and oriented x3 ; no focal motor deficit Psych: Normal mood Left BKA with surrounding area of erythema and warmth ; right lower extremity with chronic nonhealing wound Results Labs 07/29/24 14:02 07/29/24 14:02 Labs: Laboratory Results - last 24 hr 07/29/24 14:02 MCV 94.0 MCH 31.9 MCHC 33.9 RDW 15.5 Plt Count 438 H D MPV 9.8 Immature Gran % (Auto) 0.3 Neut % (Auto) 62.2 Lymph % (Auto) 16.6 L [place] % (Auto) 12.2 H Eos % (Auto) 7.2 H Baso % (Auto) 1.5 Lymph # (Auto) 1.5 [place] # (Auto) 1.1 Eos # (Auto) 0.7 H Baso # (Auto) 0.1 Abs Immat Gran (auto) 0.03 Absolute Neuts (auto) 5.7 Absolute Nucleated RBC 0.000 Nucleated RBC % (auto) 0.0 Anion Gap 17 Estim Creat Clear Calc 117.1 Estimated GFR > 60 Random Glucose 135 H Calcium 9.4 D Total Bilirubin 0.4 AST 27 ALT 17 Alkaline Phosphatase 170 H Total Protein 6.9 Albumin 4.1 Salicylates < 5.0 L Acetaminophen < 3 Ethyl Alcohol 28 Assessment and Plan (1) Atrial fibrillation with RVR: Status: Acute (2) Alcohol withdrawal: Status: Acute (3) Cellulitis: Status: Acute Plan This is a 69-year-old male with pertinent history of persistent atrial fibrillation on Pradaxa, peripheral vascular disease status post left BKA, hypertension, mixed hyperlipidemia, alcohol use disorder with history of withdrawals, marginal zone lymphoma status post appendectomy, coronary artery disease, mood disorder, gout, BPH, [id number]-ujkhegyxa type 2 diabetes mellitus, EMIL not compliant with CPAP who presents to the emergency department for evaluation of left lower extremity redness. #. Persistent atrial fibrillation with RVR: Will admit patient with cardiac monitoring. Initiated on IV diltiazem drip in the ER. Patient is on beta-lashell, diltiazem and and digoxin. Consulted Cardiology, appreciate assistance. Also on Pradaxa #. Alcohol use disorder with concerns for withdrawal: Initiated on phenobarb protocol in the ER. Monitor CIWA. Consulted Addiction Team. On thiamine #. Lower extremity cellulitis, left: Will admit patient with IV Zyvox and IV Zosyn. Monitor for improvement. Consulted Wound Care #. Mood disorder, not compensated: Continue home mood stabilizers and consulting psych to optimize. #. Peripheral vascular disease status post left BKA: Not on antiplatelet agent. On statin #. Zmg-qwahaeg-qjflsnuet diabetes mellitus: Initiating Accu-Cheks with sliding scale insulin #. EMIL: Noncompliant with CPAP #. Gout: On allopurinol #. Hypertension: Continue home antihypertensives DVT prophylaxis: Pradaxa Full code Admit as inpatient and will require two night minimum hospital stay for IV antibiotics, monitoring of heart rate, management of alcohol withdrawal (as above), which is not possible in a lesser acute setting. Quality Stroke Does the patient have a stroke diagnosis?: No VTE Prior VTE?: No VTE Risk Level:: Medical - moderate - high VTE Device Contraindication: Treatment Not Indicated VTE Drug Contraindication: N/A - Med Ordered
[2024-07-29] MEDS: ceFAZolin Sodium 1 GM VIAL IVPUSH (19:21)
[2024-07-29 19:31] LABS: Lactic Acid 1.9 mmol/L (0.5-2.0)
--- NOTE | 2024-07-29 19:36 | PHA.MEDREC ---
Pharmacy Consult ? Medication Reconciliation Pharmacy has completed the medication reconciliation. DISCHARGE FROM 07/11 AND CLAIM HISTORY USED TO REVIEW MED REC DONE BY NURSING
[2024-07-29] MEDS: dilTIAZem HCL 125 MG in 0.9 % Sodium Chloride 100 ML 10 MG IVCONT (20:22)
[2024-07-29] MEDS: Thiamine HCL 100 MG TABLET PO (20:26)
[2024-07-29] MEDS: Atorvastatin Calcium 20 MG TABLET PO (21:18)
[2024-07-29] MEDS: Piperacillin Sodium/Tazobactam 4.5 GM in 0.9 % Sodium Chloride 100 ML IV (21:18)
[2024-07-29] MEDS: Metoprolol Tartrate 50 MG TABLET PO (21:18)
[2024-07-29] MEDS: Dabigatran Etexilate Mesylate 150 MG CAPSULE PO (21:18)
[2024-07-29] MEDS: busPIRone HCl 10 MG TABLET PO (21:18)
[2024-07-29] MEDS: PHENobarbitaL sodium 130 MG/ML IM ONCE 329 MG IM (21:19)
[2024-07-29 22:25] LABS: Appearance Urine Clear; Color Urine Yellow; Glucose Urine UA Negative (Negative); Leukocyte Esterase Urine Trace (Negative); Nitrite Urine Negative (Negative); PH 8.5 (5.0-9.0); UMIC TRIGGER UA YES; Urine Blood Negative (Negative); Urine Ketones Negative (Negative); Urine Protein 30 (1+) mg/dL (Neg-Trace)
[2024-07-29 22:29] LABS: Bacteria Urine None Seen (None Seen); Hyaline Casts Urine 0-2 /LPF (0-2); RBC Urine 0-2 /HPF (0-2); Squamous Epithelial Cell Urine 0-2 /HPF (0-2); WBC Urine 0-5 /HPF (0-5)
[2024-07-29 22:37] LABS: Amphetamine Screen Urine Not Detected (Not Detect); Barbiturates, Urine POSITIVE (Not Detect); Benzodiazepines Screen Urine Not Detected (Not Detect); Buprenorphine Scr Not Detected (Not Detect); Cannabinoid Screen Urine Not Detected (Not Detect); Cocaine Screen Urine Not Detected (Not Detect); Fentanyl, urine Not Detected (Not Detect); Methadone Screen, Urine Not Detected (Not Detect); Opiate Screen Urine Not Detected (Not Detect); Oxycodone Screen Urine Not Detected (Not Detect); Phencyclidine Screen Urine Not Detected (Not Detect)
[2024-07-29] MEDS: Linezolid/D5W 600 MG/300 ML PIGGYBACK 300 MG IV (23:10)
--- NOTE | 2024-07-29 23:11 | PC.NURSE ---
diltiazem drip paused. HR 65-75BPM. MD Potter aware
[2024-07-30] VITALS (10 sets, daily range): BP systolic 94–148; BP diastolic 47–81; PULSE 83–108; RESP 14–23; TEMP 36.6–37.2; O2SAT 94–99; BMI 30.2
[2024-07-30] MEDS: Clotrimazole 1 % Cream 15 GM TUBE 1 APPL TOPICAL ×3 (01:30→20:33)
[2024-07-30] MEDS: metroNIDAZOLE 0.75 % Gel 45 GM TUBE 1 APPL TOPICAL ×3 (01:30→20:32)
[2024-07-30] MEDS: PHENobarbitaL sodium 130 MG/ML VIAL IM Q3Hx2 247 MG IM ×2 (01:32→04:19)
[2024-07-30] MEDS: 0.9 % Sodium Chloride Flush 3 ML SYRINGE IVFLUSH ×3 (01:33→17:16)
[2024-07-30] MEDS: Piperacillin Sodium/Tazobactam 4.5 GM in 0.9 % Sodium Chloride 100 ML IV ×4 (03:11→20:32)
[2024-07-30 04:23] LABS: Hematocrit 39.1 % (42.0-52.0); Hemoglobin 13.4 g/dl (14.0-18.0); Mean Corpuscular HGB Conc 34.3 g/dl (31.0-36.0); Mean Corpuscular Hemoglobin 32.4 pg (27.0-33.0); Mean Corpuscular Volume 94.4 fL (80.0-98.0); Mean Platelet Volume 9.6 fL (9.4-12.4); NRBC Pct Auto 0.2 /100WBC (0.0-0.2); Platelet Count 337 X10*3/uL (160-400); Red Blood Count 4.14 X10*6/uL (4.60-5.80); Red Cell Distribution Width 15.5 % (11.0-16.0); White Blood Count 12.8 X10*3/uL (4.8-10.8)
[2024-07-30 04:44] LABS: Anion Gap 17 (12-20); Blood Urea Nitrogen 15 mg/dL (9-16); Carbon Dioxide 21 mmol/L (22-29); Chloride 106 mmol/L (96-108); Creatinine Clr Calc Pharmacy 106.3; Estimated Glomerular Filt Rate > 60; Glucose Random 131 mg/dL (60-115); Potassium 3.5 mmol/L (3.3-5.1); Sodium 140 mmol/L (135-145)
[2024-07-30 05:01] LABS: Thyroid Stimulating Hormone 2.26 uIU/mL (0.32-4.0)
[2024-07-30] MEDS: Acetaminophen 325 MG TABLET 650 MG PO (06:30)
[2024-07-30 07:14] LABS: Glucose, Whole Blood 163 mg/dL (60-115)
[2024-07-30] MEDS: Folic Acid 1 MG TABLET PO (08:39)
[2024-07-30] MEDS: Insulin Lispro 100 UNIT/ML 3 ML VIAL SUBCUT ×2 (08:39→13:26)
[2024-07-30] MEDS: Ascorbic Acid 500 MG TABLET PO (08:39)
[2024-07-30] MEDS: dilTIAZem HCL CD 180 MG CAP.ER.24H PO (08:40)
[2024-07-30] MEDS: Thiamine HCL 100 MG TABLET PO (08:43)
[2024-07-30] MEDS: DULoxetine HCl 60 MG CAPSULE.DR PO (08:43)
[2024-07-30] MEDS: buPROPion HCl XL 150 MG TAB.ER.24H PO (08:43)
[2024-07-30] MEDS: Digoxin 0.125 MG TABLET PO (08:43)
[2024-07-30] MEDS: allopurinoL 100 MG TABLET 200 MG PO (08:43)
[2024-07-30] MEDS: Multivitamin TABLET 1 TAB PO (08:43)
--- NOTE | 2024-07-30 09:27 | PC.NURSE ---
Medication request sent to pharmacy for multiple medications unavailable in ED. Awaiting receipt to administer the medications.
[2024-07-30 10:59] LABS: Glucose, Whole Blood 213 mg/dL (60-115)
[2024-07-30] MEDS: PHENobarbitaL 30 MG TABLET 60 MG PO ×2 (10:59→21:49)
--- NOTE | 2024-07-30 11:36 | P.PNIM_ITS ---
Subjective Subjective Date of Service: 07/30/24 Interval History: fatigue Physical Exam 2 Vital Signs: Vital Signs: Last Vital Signs Temp 98.6 F 07/30/24 08:50 Pulse 99 07/30/24 08:50 Resp 18 07/30/24 08:50 BP 94/61 07/30/24 08:50 Pulse Ox 96 07/30/24 08:50 O2 Del Method Room Air 07/30/24 08:50 BMI result Body Mass Index 29.7 General: AO X 3, no acute distress Resp: CTA bilateral, no accessory muscles used CVS: S1,S2,Rapid irregular GI: soft, non tender, non distended Neuro: motor grossly intact, alert Psych: appropriate affect, appropriate insight some erythema of left stump heelling ulcers rle Objective Data Active Medications Acetaminophen (Acetaminophen 325 Mg Tablet) 650 mg PO Q6H PRN PRN Reason: Pain, Mild 1-3,fever,headache Last Admin: 07/30/24 06:30 Dose: 650 mg Documented By: SERENA Allopurinol (Allopurinol 100 Mg Tablet) 200 mg PO DAILY [facility] Last Admin: 07/30/24 08:43 Dose: 200 mg Documented By: JAVIER Ascorbic Acid (Ascorbic Acid 500 Mg Tablet) 500 mg PO DAILY [facility] Last Admin: 07/30/24 08:39 Dose: 500 mg Documented By: JAVIER Atorvastatin Calcium (Atorvastatin Calcium 20 Mg Tablet) 20 mg PO BEDTIME [facility] Last Admin: 07/29/24 21:18 Dose: 20 mg Documented By: SERGIO Bupropion HCl (Bupropion Hcl Xl 150 Mg Tab.Er.24h) 150 mg PO DAILY [facility] Last Admin: 07/30/24 08:43 Dose: 150 mg Documented By: JAVIER Buspirone HCl (Buspirone Hcl 10 Mg Tablet) 10 mg PO BID [facility] Last Admin: 07/29/24 21:18 Dose: 10 mg Documented By: SERGIO Calcium Carbonate (Calcium Carbonate 750 Mg Tab.Chew) 750 mg PO Q4H PRN PRN Reason: Heartburn Clotrimazole (Clotrimazole 1 % Cream 15 Gm Tube) 1 appl TOPICAL BID [facility]; Protocol Last Admin: 07/30/24 01:30 Dose: 1 appl Documented By: SERENA Dabigatran (Dabigatran Etexilate Mesylate 150 Mg Capsule) 150 mg PO BID [facility] Last Admin: 07/29/24 21:18 Dose: 150 mg Documented By: SERGIO Dextrose (Dextrose 50 % 25 Gm/50 Ml Syringe) 25 gm IVPUSH Q15M PRN; Protocol PRN Reason: per Hypoglycemia Standing Ord. Digoxin (Digoxin 0.125 Mg Tablet) 0.125 mg PO DAILY [facility]; Protocol Last Admin: 07/30/24 08:43 Dose: 0.125 mg Documented By: JAVIER Diltiazem HCl (Diltiazem Hcl Cd 180 Mg Cap.Er.24h) 180 mg PO DAILY [facility]; Protocol Last Admin: 07/30/24 08:40 Dose: 180 mg Documented By: JAVIER Duloxetine HCl (Duloxetine Hcl 60 Mg Capsule.Dr) 60 mg PO DAILY [facility] Last Admin: 07/30/24 08:43 Dose: 60 mg Documented By: JAVIER Folic Acid (Folic Acid 1 Mg Tablet) 1 mg PO DAILY [facility] Last Admin: 07/30/24 08:39 Dose: 1 mg Documented By: JAVIER Glucose (Glucose Gel 15 Gm Gel..Gram.) 15 gm PO Q15M PRN; Protocol PRN Reason: per Hypoglycemia Standing Ord. Diltiazem HCl 125 mg/ Sodium (Chloride) 125 mls @ 0 mls/hr IVCONT .Q0M [facility]; Protocol Last Titration: 07/29/24 23:12 Dose: 0 mg/hr, 0 mls/hr Documented By: SERGIO Linezolid (Zyvox/D5w) 600 mg in 300 mls @ 300 mls/hr IV Q12H [facility] Last Infusion: 07/30/24 00:10 Dose: Infused Documented By: SERENA Piperacillin Sod/Tazobactam (Sod 4.5 gm/ Sodium Chloride) 100 mls @ 200 mls/hr IV Q6H [facility] Last Infusion: 07/30/24 09:16 Dose: Infused Documented By: PORSCHE Insulin Human Lispro (Insulin Lispro 100 Unit/Ml 3 Ml Vial) 0 unit SUBCUT QIDACHS [facility]; Protocol Last Admin: 07/30/24 08:39 Dose: 2 unit Documented By: JAVIER Magnesium Hydroxide (Milk Of Magnesia 30 Ml Oral.Susp) 30 ml PO DAILY PRN PRN Reason: Constipation Melatonin (Melatonin 3 Mg Tablet) 6 mg PO BEDTIME PRN PRN Reason: Insomnia Metoprolol Tartrate (Metoprolol Tartrate 50 Mg Tablet) 50 mg PO BID [facility]; Protocol Last Admin: 07/30/24 08:48 Dose: Not Given Documented By: JAVIER Non-Admin Reason: Decreased Blood Pressure Metronidazole (Metronidazole 0.75 % Gel 45 Gm Tube) 1 appl TOPICAL BID [facility] Last Admin: 07/30/24 01:30 Dose: 1 appl Documented By: SERENA Multivitamins/Vitamin C (Multivitamin Tablet) 1 tab PO DAILY [facility] Last Admin: 07/30/24 08:43 Dose: 1 tab Documented By: JAVIER Naltrexone HCl (Naltrexone Hcl 50 Mg Tablet) 50 mg PO DAILY [facility] Ondansetron HCl (Ondansetron Hcl 4 Mg/2 Ml Vial) 4 mg IVPUSH Q8H PRN PRN Reason: Nausea and Vomiting Pharmacy Consult (Consult Rx Etoh Phenob Im/Po) 1 each MISCELLANE ONCE PRN; Protocol PRN Reason: Consult order Phenobarbital (Phenobarbital 30 Mg Tablet) 60 mg PO BID@1000,2200 [facility]; Protocol Stop: 07/31/24 22:01 Last Admin: 07/30/24 10:59 Dose: 60 mg Documented By: PORSCHE Phenobarbital (Phenobarbital 30 Mg Tablet) 30 mg PO BID@1000,2200 [facility]; Protocol Stop: 08/02/24 22:01 Phenobarbital (Phenobarbital 30 Mg Tablet) 30 mg PO DAILY [facility]; Protocol Stop: 08/04/24 09:01 Sodium Chloride (0.9 % Sodium Chloride Flush 3 Ml Syringe) [facility] Admin: 07/30/24 08:45 Dose: 3 ml Documented By: JAVIER Thiamine HCl (Thiamine Hcl 100 Mg Tablet) 100 mg PO DAILY [facility] Last Admin: 07/30/24 08:43 Dose: 100 mg Documented By: JAVIER Triamcinolone Acetonide (Triamcinolone Acet 0.1 % Oint 15 Gm Tube) 1 appl TOPICAL BID PRN PRN Reason: rash Labs 07/30/24 04:11 07/30/24 04:11 Labs: Laboratory Results - last 24 hr 07/29/24 07/29/24 07/29/24 14:02 19:12 22:16 MCV 94.0 MCH 31.9 MCHC 33.9 RDW 15.5 Plt Count 438 H D MPV 9.8 Immature Gran % (Auto) 0.3 Neut % (Auto) 62.2 Lymph % (Auto) 16.6 L [place] % (Auto) 12.2 H Eos % (Auto) 7.2 H Baso % (Auto) 1.5 Lymph # (Auto) 1.5 [place] # (Auto) 1.1 Eos # (Auto) 0.7 H Baso # (Auto) 0.1 Abs Immat Gran (auto) 0.03 Absolute Neuts (auto) 5.7 Absolute Nucleated RBC 0.000 Nucleated RBC % (auto) 0.0 Anion Gap 17 Estim Creat Clear Calc 117.1 Estimated GFR > 60 POC Glucose Random Glucose 135 H Lactic Acid 1.9 Calcium 9.4 D Total Bilirubin 0.4 AST 27 ALT 17 Alkaline Phosphatase 170 H Total Protein 6.9 Albumin 4.1 TSH Urine Color Yellow Urine Appearance Clear Urine pH 8.5 Ur Specific [place] 1.020 Urine Protein 30 (1+) H Urine Glucose (UA) Negative Urine Ketones Negative Urine Blood Negative Urine Nitrite Negative Ur Leukocyte Esterase Trace H Urine RBC 0-2 Urine WBC 0-5 Ur Squamous Epith Cells 0-2 Urine Bacteria None Seen Hyaline Casts 0-2 Salicylates < 5.0 L Urine Opiates Screen Not Detected Ur Buprenorphine Scrn Not Detected Ur Oxycodone Screen Not Detected Urine Methadone Screen Not Detected Urine Fentanyl Screen Not Detected Acetaminophen < 3 Ur Barbiturates Screen POSITIVE H Ur Phencyclidine Scrn Not Detected Ur Amphetamines Screen Not Detected U Benzodiazepines Scrn Not Detected Urine Cocaine Screen Not Detected U Marijuana (THC) Screen Not Detected Ethyl Alcohol 28 07/30/24 07/30/24 07/30/24 04:11 07:10 10:54 MCV 94.4 MCH 32.4 MCHC 34.3 RDW 15.5 Plt Count 337 MPV 9.6 Immature Gran % (Auto) Neut % (Auto) Lymph % (Auto) [place] % (Auto) Eos % (Auto) Baso % (Auto) Lymph # (Auto) [place] # (Auto) Eos # (Auto) Baso # (Auto) Abs Immat Gran (auto) Absolute Neuts (auto) Absolute Nucleated RBC 0.020 H Nucleated RBC % (auto) 0.2 Anion Gap 17 Estim Creat Clear Calc 106.3 Estimated GFR > 60 POC Glucose 163 H 213 H Random Glucose 131 H Lactic Acid Calcium 8.0 L D Total Bilirubin AST ALT Alkaline Phosphatase Total Protein Albumin TSH 2.26 Urine Color Urine Appearance Urine pH Ur Specific [place] Urine Protein Urine Glucose (UA) Urine Ketones Urine Blood Urine Nitrite Ur Leukocyte Esterase Urine RBC Urine WBC Ur Squamous Epith Cells Urine Bacteria Hyaline Casts Salicylates Urine Opiates Screen Ur Buprenorphine Scrn Ur Oxycodone Screen Urine Methadone Screen Urine Fentanyl Screen Acetaminophen Ur Barbiturates Screen Ur Phencyclidine Scrn Ur Amphetamines Screen U Benzodiazepines Scrn Urine Cocaine Screen U Marijuana (THC) Screen Ethyl Alcohol Assessment and Plan (1) Alcohol dependence: Status: Acute Plan 69M PMH persistent AFib on Pradaxa, peripheral vascular disease status post left BKA, hypertension, mixed hyperlipidemia, alcohol dependence, marginal zone lymphoma, coronary artery disease, mood disorder, gout, BPH, diabetes, EMIL noncompliant with CPAP presented with left lower extremity redness complicated by AFib with RVR. Persistent AFib with rapid ventricular response Continue diltiazem infusion, continue beta-lashell, diltiazem, digoxin Pradaxa Alcohol dependence with withdrawal Phenobarb Left lower extremity cellulitis Continue Zyvox and Zosyn follow up wound care Diabetes Insulin sliding scale EMIL Noncompliant with CPAP DVT prophylaxis on Pradaxa Full code reason for continued hospitalization: RVR Quality Stroke Does the patient have a stroke diagnosis?: No VTE Prior VTE?: No VTE Risk Level:: Medical - moderate - high VTE Device Contraindication: Treatment Not Indicated VTE Drug Contraindication: N/A - Med Ordered
[2024-07-30] MEDS: busPIRone HCl 10 MG TABLET PO ×2 (11:52→20:33)
[2024-07-30] MEDS: Dabigatran Etexilate Mesylate 150 MG CAPSULE PO ×2 (11:52→20:32)
[2024-07-30] MEDS: Naltrexone HCl 50 MG TABLET PO (11:52)
[2024-07-30] MEDS: Linezolid/D5W 600 MG/300 ML PIGGYBACK 300 MG IV ×2 (11:52→21:35)
--- NOTE | 2024-07-30 12:29 | MHC.CM.PN ---
CM met with Patient at bedside, in the ED, and addressed IMM with him, providing Patient with the original and a copy will be placed on the chart. Patient lives alone in a house but is moving to an [place] in [place] on 08/07/2024. Patient is active with [facility]; CM has initiated and will follow for dc planning. Patient uses CPAP and he has a prosthesis for his (L) BKA. Patient's Brother/Danyel is the HCP and Patient may need assist with transport to home.
--- NOTE | 2024-07-30 12:40 | PC.NURSE ---
Continue to await lunch.
--- NOTE | 2024-07-30 16:36 | HO.ADDICTCON ---
History of Present Illness Date of Service: 07/31/2024 Chief Complaint: extremity redness Reason for Consult: AUD Sources of Information: patient interviewed and chart reviewed HPI Narrative: Patient is a 69 year old male with medical history that includes AFIB with RVR and AUD Currently medically admitted with lower extremity cellulitis and alcohol withdrawal Patient seen in ED room 14. He is awake, alert, engaged in interview. Known to [facility] via previous admissions. He reports that he has been decreasing his alcohol intake overall, however states that recent life stressors led to an increase of alcohol as a way to cope. He has been receiving phenobarbital withdrawal taper while here, and CIWA scores have been very low 0,1. Denies any withdrawal sx when seen by t/w. I feel good, it's just this (points to his stump) He is very talkative, reporting he is connected to [facility] providers via [facility] and has other BH/recovery supports He is also prescribed Naltrexone He states that he will be moving to [place] later this month to a senior care community. He is hopeful this will be beneficial with his mental health as he will not have frequent reminders of his family and other things he has lost due to his alcohol use. Labs reviewed--etoh level 28 at time of admission to ED Review of Systems Constitutional: Reports as per HPI and Reports no additional constitutional complaints Diagnostics Vital Signs (24Hr): Vital Signs - 24 hr 07/29/24 17:00 07/29/24 17:03 07/29/24 20:22 Temperature Pulse Rate 117 H 120 H 123 H Respiratory Rate 16 Blood Pressure 168/88 H 168/88 H 176/76 H Pulse Oximetry 97 Oxygen Delivery Method Room Air 07/29/24 20:33 07/29/24 21:24 07/30/24 01:27 Temperature 98.3 F 98.3 F Pulse Rate 121 H 102 H 83 Respiratory Rate 19 15 18 Blood Pressure 176/76 H 163/82 H 148/70 H Pulse Oximetry 97 96 97 Oxygen Delivery Method Room Air Room Air Room Air 07/30/24 04:20 07/30/24 07:58 07/30/24 08:50 Temperature 97.8 F 98.2 F 98.6 F Pulse Rate 89 96 99 Respiratory Rate 16 18 18 Blood Pressure 113/61 101/47 L 94/61 Pulse Oximetry 98 95 96 Oxygen Delivery Method Room Air Room Air Room Air 07/30/24 12:15 07/30/24 16:26 Temperature 98.6 F Pulse Rate 90 96 Respiratory Rate 14 23 H Blood Pressure 127/73 126/53 L Pulse Oximetry 99 98 Oxygen Delivery Method Room Air Room Air BMI result Body Mass Index 29.7 Labs 07/31/24 06:26 07/31/24 06:26 Labs: Laboratory Results - last 48 hr 07/29/24 07/29/24 07/29/24 14:02 19:12 22:16 WBC 9.2 RBC 4.67 D Hgb 14.9 Hct 43.9 MCV 94.0 MCH 31.9 MCHC 33.9 RDW 15.5 Plt Count 438 H D MPV 9.8 Immature Gran % (Auto) 0.3 Neut % (Auto) 62.2 Lymph % (Auto) 16.6 L [place] % (Auto) 12.2 H Eos % (Auto) 7.2 H Baso % (Auto) 1.5 Lymph # (Auto) 1.5 Red[place] # (Auto) 1.1 Eos # (Auto) 0.7 H Baso # (Auto) 0.1 Abs Immat Gran (auto) 0.03 Absolute Neuts (auto) 5.7 Absolute Nucleated RBC 0.000 Nucleated RBC % (auto) 0.0 Sodium 145 Potassium 4.3 Chloride 107 Carbon Dioxide 25 Anion Gap 17 BUN 11 Creatinine 0.79 Estim Creat Clear Calc 117.1 Estimated GFR > 60 POC Glucose Random Glucose 135 H Lactic Acid 1.9 Calcium 9.4 D Total Bilirubin 0.4 AST 27 ALT 17 Alkaline Phosphatase 170 H Total Protein 6.9 Albumin 4.1 TSH Urine Color Yellow Urine Appearance Clear Urine pH 8.5 Ur Specific [place] 1.020 Urine Protein 30 (1+) H Urine Glucose (UA) Negative Urine Ketones Negative Urine Blood Negative Urine Nitrite Negative Ur Leukocyte Esterase Trace H Urine RBC 0-2 Urine WBC 0-5 Ur Squamous Epith Cells 0-2 Urine Bacteria None Seen Hyaline Casts 0-2 Salicylates < 5.0 L Urine Opiates Screen Not Detected Ur Buprenorphine Scrn Not Detected Ur Oxycodone Screen Not Detected Urine Methadone Screen Not Detected Urine Fentanyl Screen Not Detected Acetaminophen < 3 Ur Barbiturates Screen POSITIVE H Ur Phencyclidine Scrn Not Detected Ur Amphetamines Screen Not Detected U Benzodiazepines Scrn Not Detected Urine Cocaine Screen Not Detected U Marijuana (THC) Screen Not Detected Ethyl Alcohol 28 05/06/25 05/06/25 05/06/25 04:11 07:10 10:54 WBC 12.8 H RBC 4.14 L Hgb 13.4 L Hct 39.1 L MCV 94.4 MCH 32.4 MCHC 34.3 RDW 15.5 Plt Count 337 MPV 9.6 Immature Gran % (Auto) Neut % (Auto) Lymph % (Auto) Red[place] % (Auto) Eos % (Auto) Baso % (Auto) Lymph # (Auto) [place] # (Auto) Eos # (Auto) Baso # (Auto) Abs Immat Gran (auto) Absolute Neuts (auto) Absolute Nucleated RBC 0.020 H Nucleated RBC % (auto) 0.2 Sodium 140 Potassium 3.5 Chloride 106 Carbon Dioxide 21 L Anion Gap 17 BUN 15 Creatinine 0.87 Estim Creat Clear Calc 106.3 Estimated GFR > 60 POC Glucose 163 H 213 H Random Glucose 131 H Lactic Acid Calcium 8.0 L D Total Bilirubin AST ALT Alkaline Phosphatase Total Protein Albumin TSH 2.26 Urine Color Urine Appearance Urine pH Ur Specific [place] Urine Protein Urine Glucose (UA) Urine Ketones Urine Blood Urine Nitrite Ur Leukocyte Esterase Urine RBC Urine WBC Ur Squamous Epith Cells Urine Bacteria Hyaline Casts Salicylates Urine Opiates Screen Ur Buprenorphine Scrn Ur Oxycodone Screen Urine Methadone Screen Urine Fentanyl Screen Acetaminophen Ur Barbiturates Screen Ur Phencyclidine Scrn Ur Amphetamines Screen U Benzodiazepines Scrn Urine Cocaine Screen U Marijuana (THC) Screen Ethyl Alcohol Mental Status Exam Mental Status Exam Patient Appearance: Disheveled Level of Consciousness: Awake, Appropriate and Alert Patient Behavior: Appropriate, Talkative and Cooperative Affect Description: Calm Speech Pattern: Clear Hallucinations: None Thought Content: positive for Tangential Judgement: Fair Medications Medications Current Medications Acetaminophen (Acetaminophen 325 Mg Tablet) 650 mg PO Q6H PRN PRN Reason: Pain, Mild 1-3,fever,headache Last Admin: 07/30/24 06:30 Dose: 650 mg Allopurinol (Allopurinol 100 Mg Tablet) 200 mg PO DAILY [facility] Last Admin: 07/30/24 08:43 Dose: 200 mg Ascorbic Acid (Ascorbic Acid 500 Mg Tablet) 500 mg PO DAILY [facility] Last Admin: 07/30/24 08:39 Dose: 500 mg Atorvastatin Calcium (Atorvastatin Calcium 20 Mg Tablet) 20 mg PO BEDTIME [facility] Last Admin: 07/29/24 21:18 Dose: 20 mg Bupropion HCl (Bupropion Hcl Xl 150 Mg Tab.Er.24h) 150 mg PO DAILY [facility] Last Admin: 07/30/24 08:43 Dose: 150 mg Buspirone HCl (Buspirone Hcl 10 Mg Tablet) 10 mg PO BID [facility] Last Admin: 07/30/24 11:52 Dose: 10 mg Calcium Carbonate (Calcium Carbonate 750 Mg Tab.Chew) 750 mg PO Q4H PRN PRN Reason: Heartburn Clotrimazole (Clotrimazole 1 % Cream 15 Gm Tube) 1 appl TOPICAL BID [facility]; Protocol Last Admin: 07/30/24 13:21 Dose: 1 appl Dabigatran (Dabigatran Etexilate Mesylate 150 Mg Capsule) 150 mg PO BID [facility] Last Admin: 07/30/24 11:52 Dose: 150 mg Dextrose (Dextrose 50 % 25 Gm/50 Ml Syringe) 25 gm IVPUSH Q15M PRN; Protocol PRN Reason: per Hypoglycemia Standing Ord. Digoxin (Digoxin 0.125 Mg Tablet) 0.125 mg PO DAILY [facility]; Protocol Last Admin: 07/30/24 08:43 Dose: 0.125 mg Diltiazem HCl (Diltiazem Hcl Cd 180 Mg Cap.Er.24h) 180 mg PO DAILY [facility]; Protocol Last Admin: 07/30/24 08:40 Dose: 180 mg Duloxetine HCl (Duloxetine Hcl 60 Mg Capsule.Dr) 60 mg PO DAILY [facility] Last Admin: 07/30/24 08:43 Dose: 60 mg Folic Acid (Folic Acid 1 Mg Tablet) 1 mg PO DAILY [facility] Last Admin: 07/30/24 08:39 Dose: 1 mg Glucose (Glucose Gel 15 Gm Gel..Gram.) 15 gm PO Q15M PRN; Protocol PRN Reason: per Hypoglycemia Standing Ord. Diltiazem HCl 125 mg/ Sodium (Chloride) 125 mls @ 0 mls/hr IVCONT .Q0M [facility]; Protocol Last Titration: 07/29/24 23:12 Dose: 0 mg/hr, 0 mls/hr Linezolid (Zyvox/D5w) 600 mg in 300 mls @ 300 mls/hr IV Q12H [facility] Last Infusion: 07/30/24 12:52 Dose: Infused Piperacillin Sod/Tazobactam (Sod 4.5 gm/ Sodium Chloride) 100 mls @ 200 mls/hr IV Q6H [facility] Last Infusion: 07/30/24 09:16 Dose: Infused Insulin Human Lispro (Insulin Lispro 100 Unit/Ml 3 Ml Vial) 0 unit SUBCUT QIDACHS [facility]; Protocol Last Admin: 07/30/24 13:26 Dose: 4 unit Magnesium Hydroxide (Milk Of Magnesia 30 Ml Oral.Susp) 30 ml PO DAILY PRN PRN Reason: Constipation Melatonin (Melatonin 3 Mg Tablet) 6 mg PO BEDTIME PRN PRN Reason: Insomnia Metoprolol Tartrate (Metoprolol Tartrate 50 Mg Tablet) 50 mg PO BID [facility]; Protocol Last Admin: 07/30/24 08:48 Dose: Not Given Metronidazole (Metronidazole 0.75 % Gel 45 Gm Tube) 1 appl TOPICAL BID [facility] Last Admin: 07/30/24 13:22 Dose: 1 appl Multivitamins/Vitamin C (Multivitamin Tablet) 1 tab PO DAILY [facility] Last Admin: 07/30/24 08:43 Dose: 1 tab Naltrexone HCl (Naltrexone Hcl 50 Mg Tablet) 50 mg PO DAILY [facility] Last Admin: 07/30/24 11:52 Dose: 50 mg Ondansetron HCl (Ondansetron Hcl 4 Mg/2 Ml Vial) 4 mg IVPUSH Q8H PRN PRN Reason: Nausea and Vomiting Pharmacy Consult (Consult Rx Etoh Phenob Im/Po) 1 each MISCELLANE ONCE PRN; Protocol PRN Reason: Consult order Phenobarbital (Phenobarbital 30 Mg Tablet) 60 mg PO BID@1000,2200 [facility]; Protocol Stop: 07/31/24 22:01 Last Admin: 07/30/24 10:59 Dose: 60 mg Phenobarbital (Phenobarbital 30 Mg Tablet) 30 mg PO BID@1000,2200 [facility]; Protocol Stop: 08/02/24 22:01 Phenobarbital (Phenobarbital 30 Mg Tablet) 30 mg PO DAILY [facility]; Protocol Stop: 08/04/24 09:01 Sodium Chloride (0.9 % Sodium Chloride Flush 3 Ml Syringe) 3 ml IVFLUSH QSHIFT [facility] Last Admin: 07/30/24 08:45 Dose: 3 ml Thiamine HCl (Thiamine Hcl 100 Mg Tablet) 100 mg PO DAILY [facility] Last Admin: 07/30/24 08:43 Dose: 100 mg Triamcinolone Acetonide (Triamcinolone Acet 0.1 % Oint 15 Gm Tube) 1 appl TOPICAL BID PRN PRN Reason: rash Allergies Allergies Allergy/AdvReac Type Severity Reaction Status Date / Time vancomycin [VANCOMYCIN] Allergy Severe ANGIOEDEMA Verified 07/29/24 13:21 Sulfa (Sulfonamide Allergy Intermediate Rash Verified 07/29/24 13:21 Antibiotics) sulfamethoxazole Allergy rash Verified 07/29/24 13:21 [From Bactrim] trimethoprim [From Bactrim] Allergy Rash Verified 07/29/24 13:21 Assessment & Plan Assessment & Plan (1) Alcohol use disorder, severe, dependence: Status: Acute Code(s): F10.20 - Alcohol dependence, uncomplicated Assessment and Plan: pheno taper in place--withdrawal sx well managed already on naltrexone and plans to continue connected to recovery supports --declines referrals or additional recovery supports ([place]) no follow up indicated at this time. Please reconsult if needed Total time managing care of this patient today 35____ minutes. PMFSH Past Medical History Medical History Venous stasis ulcers Alcohol withdrawal PAF (paroxysmal atrial fibrillation) Weakness Rosacea Annual physical exam Depression Essential hypertension Hyperlipidemia LDL goal <100 Obesity due to excess calories BMI 30.0-30.9,adult ETOH abuse BPH associated with nocturia CAD (coronary artery disease) Long-term current use of intravenous immunoglobulin (IVIG) GERD (gastroesophageal reflux disease) Hypogammaglobulinemia Diabetic eye exam Adjustment disorder Gout Chronic osteomyelitis Splenic marginal zone b-cell lymphoma EMIL (obstructive sleep apnea) Family History Family History Father Diabetes Mother Liver cancer Maternal Grandfather CVD (cardiovascular disease) Brother Myocardial infarction Surgical History Surgical History Status post below-knee amputation of left lower extremity Osteomyelitis Osteomyelitis History of esophagogastroduodenoscopy (EGD) History of colonoscopy History of bunionectomy History of cardiac cath Social History Social History Household Members: None Housing: House Do you presently have visiting nurse or other home services: Yes Alcohol intake: current Alcohol intake frequency: 3 or more drinks per day Alcohol type: hard liquor Comment: sitter in room / video Patient Tobacco Use Status: Never used Tobacco e-Cigarette/Vaping Use: Never Used Second Hand Smoke Exposure: No Advance Directives Date on File: 10/10/23 service: No Current occupational status: employed 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
[2024-07-30 16:39] LABS: Glucose, Whole Blood 102 mg/dL (60-115)
--- NOTE | 2024-07-30 16:39 | PC.NURSE ---
Patient had large diarrhea bowel movement, foul smelling. Patient states that this happened suddenly, and was somewhat incontinent of stool on his clothing. Linens & clothing changed. Patient thankful/grateful for assistance. Preparing for admission to Med/Tele floor.
[2024-07-30 18:06] LABS: Glucose, Whole Blood 78 mg/dL (60-115)
[2024-07-30] MEDS: Metoprolol Tartrate 50 MG TABLET PO (20:32)
[2024-07-30] MEDS: Atorvastatin Calcium 20 MG TABLET PO (20:33)
[2024-07-30 20:51] LABS: Glucose, Whole Blood 124 mg/dL (60-115)
[2024-07-31] VITALS (7 sets, daily range): BP systolic 111–144; BP diastolic 61–86; PULSE 73–95; RESP 16–20; TEMP 36.4–37.2; O2SAT 95–99; BMI 32.8
[2024-07-31] MEDS: Piperacillin Sodium/Tazobactam 4.5 GM in 0.9 % Sodium Chloride 100 ML IV ×4 (03:55→20:26)
[2024-07-31] MEDS: 0.9 % Sodium Chloride Flush 3 ML SYRINGE IVFLUSH ×4 (04:11→20:27)
[2024-07-31] MEDS: Acetaminophen 325 MG TABLET 650 MG PO (05:01)
[2024-07-31 05:28] LABS: CDiff Gene PCR NEGATIVE (Negative)
[2024-07-31 07:10] LABS: Hematocrit 36.3 % (42.0-52.0); Hemoglobin 12.6 g/dl (14.0-18.0); Mean Corpuscular HGB Conc 34.7 g/dl (31.0-36.0); Mean Corpuscular Hemoglobin 32.2 pg (27.0-33.0); Mean Corpuscular Volume 92.8 fL (80.0-98.0); Mean Platelet Volume 10.4 fL (9.4-12.4); NRBC Pct Auto 0.2 /100WBC (0.0-0.2); Platelet Count 279 X10*3/uL (160-400); Red Blood Count 3.91 X10*6/uL (4.60-5.80); Red Cell Distribution Width 15.2 % (11.0-16.0); White Blood Count 12.9 X10*3/uL (4.8-10.8)
[2024-07-31 07:23] LABS: Glucose, Whole Blood 102 mg/dL (60-115)
[2024-07-31 07:32] LABS: Alanine Aminotransferase 12 U/L (0-40); Alkaline Phosphatase 97 U/L (39-117); Anion Gap 13 (12-20); Aspartate Amino Transferase 30 U/L (5-37); Bilirubin Direct 0.3 mg/dL (0.0-0.5); Bilirubin Total 0.7 mg/dL (0.0-1.0); Blood Urea Nitrogen 16 mg/dL (9-16); Calcium 7.4 mg/dL (8.4-10.2); Carbon Dioxide 23 mmol/L (22-29); Chloride 102 mmol/L (96-108); Creatinine Clr Calc Pharmacy 98.9; Estimated Glomerular Filt Rate > 60; Glucose Random 110 mg/dL (60-115); Potassium 3.4 mmol/L (3.3-5.1); Sodium 135 mmol/L (135-145)
[2024-07-31] MEDS: Digoxin 0.125 MG TABLET PO (07:54)
[2024-07-31] MEDS: Naltrexone HCl 50 MG TABLET PO (07:54)
[2024-07-31] MEDS: Dabigatran Etexilate Mesylate 150 MG CAPSULE PO ×2 (07:54→20:26)
[2024-07-31] MEDS: allopurinoL 100 MG TABLET 200 MG PO (07:54)
[2024-07-31] MEDS: busPIRone HCl 10 MG TABLET PO ×2 (07:54→20:26)
[2024-07-31] MEDS: dilTIAZem HCL CD 180 MG CAP.ER.24H PO (07:54)
[2024-07-31] MEDS: Multivitamin TABLET 1 TAB PO (07:54)
[2024-07-31] MEDS: DULoxetine HCl 60 MG CAPSULE.DR PO (07:55)
[2024-07-31] MEDS: Ascorbic Acid 500 MG TABLET PO (07:55)
[2024-07-31] MEDS: Metoprolol Tartrate 50 MG TABLET PO ×2 (07:55→20:26)
[2024-07-31] MEDS: Thiamine HCL 100 MG TABLET PO (07:55)
[2024-07-31] MEDS: Folic Acid 1 MG TABLET PO (07:55)
[2024-07-31] MEDS: buPROPion HCl XL 150 MG TAB.ER.24H PO (07:55)
[2024-07-31] MEDS: metroNIDAZOLE 0.75 % Gel 45 GM TUBE 1 APPL TOPICAL ×2 (07:57→20:27)
[2024-07-31] MEDS: Clotrimazole 1 % Cream 15 GM TUBE 1 APPL TOPICAL ×2 (07:57→20:27)
[2024-07-31] MEDS: PHENobarbitaL 30 MG TABLET 60 MG PO ×2 (08:23→20:26)
[2024-07-31] MEDS: Linezolid/D5W 600 MG/300 ML PIGGYBACK 300 MG IV ×2 (08:35→21:20)
[2024-07-31 10:03] LABS: Adenovirus F 40/41 Not Detected (Not Detect.); Astrovirus Not Detected (Not Detect.); Campylobacter Not Detected (Not Detect.); Cryptosporidium Not Detected (Not Detect.); Cyclospora cayetanensis Not Detected (Not Detect.); E. coli EAEC Not Detected (Not Detect.); E. coli EPEC Not Detected (Not Detect.); E. coli ETEC Not Detected (Not Detect.); E. coli STEC Not Detected (Not Detect.); Entamoeba histolytica Not Detected (Not Detect.); Giardia lamblia Not Detected (Not Detect.); Norovirus GI/GII Not Detected (Not Detect.); Plesiomonas shigelloides Not Detected (Not Detect.); Rotavirus A Not Detected (Not Detect.); Salmonella Not Detected (Not Detect.); Sapovirus Not Detected (Not Detect.); Shigella sp./EIEC Not Detected (Not Detect.); Vibrio Not Detected (Not Detect.); Vibrio Cholerae Not Detected (Not Detect.); Yersinia enterocolitica Not Detected (Not Detect.)
[2024-07-31 11:10] LABS: Glucose, Whole Blood 173 mg/dL (60-115)
[2024-07-31] MEDS: Insulin Lispro 100 UNIT/ML 3 ML VIAL SUBCUT (11:22)
[2024-07-31] MEDS: Loperamide HCl 2 MG CAPSULE PO ×2 (11:22→20:31)
--- NOTE | 2024-07-31 12:45 | HO.PM.IMPN ---
Subjective Subjective Date of Service: 07/31/24 Interval History: still with diarrhea Physical Exam Vital Signs: Vital Signs: Last Vital Signs Temp 98.0 F 07/31/24 11:06 Pulse 80 07/31/24 11:06 Resp 18 07/31/24 11:06 BP 125/61 07/31/24 11:06 Pulse Ox 96 07/31/24 11:06 O2 Del Method Room Air 07/31/24 11:06 BMI result Body Mass Index 32.8 General: AO X 3, no acute distress Resp: CTA bilateral, no accessory muscles used CVS: S1,S2,Rapid irregular GI: soft, non tender, non distended Neuro: motor grossly intact, alert Psych: appropriate affect, appropriate insight some erythema of left stump heelling ulcers rle Objective Data Active Medications Acetaminophen (Acetaminophen 325 Mg Tablet) 650 mg PO Q6H PRN PRN Reason: Pain, Mild 1-3,fever,headache Last Admin: 07/31/24 05:01 Dose: 650 mg Documented By: TIARA Allopurinol (Allopurinol 100 Mg Tablet) 200 mg PO DAILY [facility] Last Admin: 07/31/24 07:54 Dose: 200 mg Documented By: ALEJANDRA Ascorbic Acid (Ascorbic Acid 500 Mg Tablet) 500 mg PO DAILY COUNT [facility] Last Admin: 07/31/24 07:55 Dose: 500 mg Documented By: ALEJANDRA Atorvastatin Calcium (Atorvastatin Calcium 20 Mg Tablet) 20 mg PO BEDTIME COUNT [facility] Last Admin: 07/30/24 20:33 Dose: 20 mg Documented By: TIARA Bupropion HCl (Bupropion Hcl Xl 150 Mg Tab.Er.24h) 150 mg PO DAILY [facility] Last Admin: 07/31/24 07:55 Dose: 150 mg Documented By: ALEJANDRA Buspirone HCl (Buspirone Hcl 10 Mg Tablet) 10 mg PO BID [facility] Last Admin: 07/31/24 07:54 Dose: 10 mg Documented By: ALEJANDRA Calcium Carbonate (Calcium Carbonate 750 Mg Tab.Chew) 750 mg PO Q4H PRN PRN Reason: Heartburn Clotrimazole (Clotrimazole 1 % Cream 15 Gm Tube) 1 appl TOPICAL BID [facility]; Protocol Last Admin: 07/31/24 07:57 Dose: 1 appl Documented By: ALEJANDRA Dabigatran (Dabigatran Etexilate Mesylate 150 Mg Capsule) 150 mg PO BID [facility] Last Admin: 07/31/24 07:54 Dose: 150 mg Documented By: ALEJANDRA Dextrose (Dextrose 50 % 25 Gm/50 Ml Syringe) 25 gm IVPUSH Q15M PRN; Protocol PRN Reason: per Hypoglycemia Standing Ord. Digoxin (Digoxin 0.125 Mg Tablet) 0.125 mg PO DAILY COUNT [facility]; Protocol Last Admin: 07/31/24 07:54 Dose: 0.125 mg Documented By: ALEJANDRA Diltiazem HCl (Diltiazem Hcl Cd 180 Mg Cap.Er.24h) 180 mg PO DAILY COUNT [facility]; Protocol Last Admin: 07/31/24 07:54 Dose: 180 mg Documented By: ALEJANDRA Duloxetine HCl (Duloxetine Hcl 60 Mg Capsule.Dr) 60 mg PO DAILY [facility] Last Admin: 07/31/24 07:55 Dose: 60 mg Documented By: ALEJANDRA Folic Acid (Folic Acid 1 Mg Tablet) 1 mg PO DAILY COUNT [facility] Last Admin: 07/31/24 07:55 Dose: 1 mg Documented By: ALEJANDRA Glucose (Glucose Gel 15 Gm Gel..Gram.) 15 gm PO Q15M PRN; Protocol PRN Reason: per Hypoglycemia Standing Ord. Linezolid (Zyvox/D5w) 600 mg in 300 mls @ 300 mls/hr IV Q12H COUNT [facility] Last Infusion: 07/31/24 10:20 Dose: Infused Documented By: KOFFI Piperacillin Sod/Tazobactam (Sod 4.5 gm/ Sodium Chloride) 100 mls @ 200 mls/hr IV Q6H COUNT [facility] Last Infusion: 07/31/24 08:35 Dose: Infused Documented By: KOFFI Insulin Human Lispro (Insulin Lispro 100 Unit/Ml 3 Ml Vial) 0 unit SUBCUT QIDACHS COUNT [facility]; Protocol Last Admin: 07/31/24 11:22 Dose: 2 unit Documented By: KOFFI Loperamide HCl (Loperamide Hcl 2 Mg Capsule) 2 mg PO Q4H PRN PRN Reason: Diarrhea Last Admin: 07/31/24 11:22 Dose: 2 mg Documented By: KOFFI Magnesium Hydroxide (Milk Of Magnesia 30 Ml Oral.Susp) 30 ml PO DAILY PRN PRN Reason: Constipation Melatonin (Melatonin 3 Mg Tablet) 6 mg PO BEDTIME PRN PRN Reason: Insomnia Metoprolol Tartrate (Metoprolol Tartrate 50 Mg Tablet) 50 mg PO BID [facility]; Protocol Last Admin: 07/31/24 07:55 Dose: 50 mg Documented By: ALEJANDRA Metronidazole (Metronidazole 0.75 % Gel 45 Gm Tube) 1 appl TOPICAL BID [facility] Last Admin: 07/31/24 07:57 Dose: 1 appl Documented By: ALEJANDRA Multivitamins/Vitamin C (Multivitamin Tablet) 1 tab PO DAILY [facility] Last Admin: 07/31/24 07:54 Dose: 1 tab Documented By: ALEJANDRA Naltrexone HCl (Naltrexone Hcl 50 Mg Tablet) 50 mg PO DAILY [facility] Last Admin: 07/31/24 07:54 Dose: 50 mg Documented By: ALEJANDRA Ondansetron HCl (Ondansetron Hcl 4 Mg/2 Ml Vial) 4 mg IVPUSH Q8H PRN PRN Reason: Nausea and Vomiting Pharmacy Consult (Consult Rx Etoh Phenob Im/Po) 1 each MISCELLANE ONCE PRN; Protocol PRN Reason: Consult order Phenobarbital (Phenobarbital 30 Mg Tablet) 60 mg PO BID@1000,2200 [facility]; Protocol Stop: 07/31/24 22:01 Last Admin: 07/31/24 08:23 Dose: 60 mg Documented By: KOFFI Phenobarbital (Phenobarbital 30 Mg Tablet) 30 mg PO BID@1000,2200 [facility]; Protocol Stop: 08/02/24 22:01 Phenobarbital (Phenobarbital 30 Mg Tablet) 30 mg PO DAILY [facility]; Protocol Stop: 08/04/24 09:01 Sodium Chloride (0.9 % Sodium Chloride Flush 3 Ml Syringe) 3 ml IVFLUSH [facility] Last Admin: 07/31/24 07:58 Dose: 3 ml Documented By: ALEJANDRA Thiamine HCl (Thiamine Hcl 100 Mg Tablet) 100 mg PO DAILY [facility] Last Admin: 07/31/24 07:55 Dose: 100 mg Documented By: ALEJANDRA Triamcinolone Acetonide (Triamcinolone Acet 0.1 % Oint 15 Gm Tube) 1 appl TOPICAL BID PRN PRN Reason: rash Labs 07/31/24 06:26 07/31/24 06:26 Labs: Laboratory Results - last 24 hr 07/30/24 07/30/24 07/30/24 16:35 17:48 20:31 MCV MCH MCHC RDW Plt Count MPV Absolute Nucleated RBC Nucleated RBC % (auto) Anion Gap Estim Creat Clear Calc Estimated GFR POC Glucose 102 78 124 H Random Glucose Calcium Total Bilirubin Direct Bilirubin AST ALT Alkaline Phosphatase Total Protein Albumin Stl C. cayetanensis PCR Stool Rotavirus A PCR Stl Adenov F 40/41 PCR Stool Astrovirus (PCR) Stool Campylobacter PCR Stool Cryptosporidium PCR Stl Sh Tox Pr E STEC PCR Stool E coli O157 PCR Stl Enterotoxigenic E PCR Stool EPEC (PCR) Stool EAEC (PCR) Stl E. histolytica PCR Stool Giardia Lamblia PCR Stl P. shigelloides PCR Stool Salmonella PCR Stool Sapovirus (PCR) Stl Shigella/EIEC PCR St Y.enterocolitica PCR Stool Vibrio (PCR) Stl Vibrio cholerae PCR Stl Norovirus GI/GII PCR C. difficile Tox B Gene 07/31/24 07/31/24 07/31/24 04:34 06:26 07:18 MCV 92.8 MCH 32.2 MCHC 34.7 RDW 15.2 Plt Count 279 MPV 10.4 Absolute Nucleated RBC 0.030 H Nucleated RBC % (auto) 0.2 Anion Gap 13 Estim Creat Clear Calc 98.9 Estimated GFR > 60 POC Glucose 102 Random Glucose 110 Calcium 7.4 L D Total Bilirubin 0.7 Direct Bilirubin 0.3 AST 30 ALT 12 Alkaline Phosphatase 97 Total Protein 5.0 L Albumin 3.0 L Stl C. cayetanensis PCR Not Detected Stool Rotavirus A PCR Not Detected Stl Adenov F 40/41 PCR Not Detected Stool Astrovirus (PCR) Not Detected Stool Campylobacter PCR Not Detected Stool Cryptosporidium PCR Not Detected Stl Sh Tox Pr E STEC PCR Not Detected Stool E coli O157 PCR Not applicable Stl Enterotoxigenic E PCR Not Detected Stool EPEC (PCR) Not Detected Stool EAEC (PCR) Not Detected Stl E. histolytica PCR Not Detected Stool Giardia Lamblia PCR Not Detected Stl P. shigelloides PCR Not Detected Stool Salmonella PCR Not Detected Stool Sapovirus (PCR) Not Detected Stl Shigella/EIEC PCR Not Detected St Y.enterocolitica PCR Not Detected Stool Vibrio (PCR) Not Detected Stl Vibrio cholerae PCR Not Detected Stl Norovirus GI/GII PCR Not Detected C. difficile Tox B Gene NEGATIVE 07/31/24 11:07 MCV MCH MCHC RDW Plt Count MPV Absolute Nucleated RBC Nucleated RBC % (auto) Anion Gap Estim Creat Clear Calc Estimated GFR POC Glucose 173 H Random Glucose Calcium Total Bilirubin Direct Bilirubin AST ALT Alkaline Phosphatase Total Protein Albumin Stl C. cayetanensis PCR Stool Rotavirus A PCR Stl Adenov F 40/41 PCR Stool Astrovirus (PCR) Stool Campylobacter PCR Stool Cryptosporidium PCR Stl Sh Tox Pr E STEC PCR Stool E coli O157 PCR Stl Enterotoxigenic E PCR Stool EPEC (PCR) Stool EAEC (PCR) Stl E. histolytica PCR Stool Giardia Lamblia PCR Stl P. shigelloides PCR Stool Salmonella PCR Stool Sapovirus (PCR) Stl Shigella/EIEC PCR St Y.enterocolitica PCR Stool Vibrio (PCR) Stl Vibrio cholerae PCR Stl Norovirus GI/GII PCR C. difficile Tox B Gene Microbiology Microbiology Results: Microbiology 07/29/24 19:12 Blood Culture - Preliminary Blood - Venous No growth after 24 hours. 07/29/24 19:12 Blood Culture - Preliminary Blood - Venous No growth after 24 hours. Assessment and Plan (1) Alcohol dependence: Status: Acute Plan 69M PMH persistent AFib on Pradaxa, peripheral vascular disease status post left BKA, hypertension, mixed hyperlipidemia, alcohol dependence, marginal zone lymphoma, coronary artery disease, mood disorder, gout, BPH, diabetes, EMIL noncompliant with CPAP presented with left lower extremity redness complicated by AFib with RVR. Persistent AFib with rapid ventricular response Now rate controlled continue beta-lashell, diltiazem, digoxin Pradaxa Alcohol dependence with withdrawal Phenobarb Left lower extremity cellulitis Continue Zyvox and Zosyn follow up wound care Diarrhea C diff and GI panel negative, start Imodium Diabetes Insulin sliding scale EMIL Noncompliant with CPAP DVT prophylaxis on Pradaxa Full code reason for continued hospitalization: Diarrhea Quality Stroke Does the patient have a stroke diagnosis?: No VTE Prior VTE?: No VTE Risk Level:: Medical - moderate - high VTE Device Contraindication: Treatment Not Indicated VTE Drug Contraindication: N/A - Med Ordered
--- NOTE | 2024-07-31 14:47 | MHC.CLN ---
PT WITH INCREASED NUTRITION NEEDS R/T PRESSURE INJURY CARDIAC DIET-RECOMMEND 2200DM 2GM NA DIET RECOMMEND ADDING ENSURE MAX TID TO PROMOTE WOUND HEALING SUPP PROVIDES 450KCALS, 90G PROTEIN MONITOR PO INTAKE AND ENCOURAGE SUPPLEMENTS SEE ALSO FULL CLINICAL NUTRITION ASSESSMENT
--- NOTE | 2024-07-31 15:55 | MHC.CM.PN ---
Per MD rounds patient is not medically cleared to discharge. Patient continues to require IV ABX DP pending PT eval. DP Home with services vs STR via BLS.
[2024-07-31 16:27] LABS: Glucose, Whole Blood 120 mg/dL (60-115)
[2024-07-31 19:35] LABS: Glucose, Whole Blood 119 mg/dL (60-115)
[2024-07-31] MEDS: Atorvastatin Calcium 20 MG TABLET PO (20:26)
[2024-08-01 03:27] VITALS: BP 119/61; PULSE 67; RESP 18; TEMP 36.3
[2024-08-01] MEDS: Piperacillin Sodium/Tazobactam 4.5 GM in 0.9 % Sodium Chloride 100 ML IV ×2 (04:00→08:17)
[2024-08-01] MEDS: Loperamide HCl 2 MG CAPSULE PO ×2 (04:07→08:19)
[2024-08-01 07:15] LABS: Hematocrit 36.4 % (42.0-52.0); Hemoglobin 12.6 g/dl (14.0-18.0); Mean Corpuscular HGB Conc 34.6 g/dl (31.0-36.0); Mean Corpuscular Hemoglobin 31.8 pg (27.0-33.0); Mean Corpuscular Volume 91.9 fL (80.0-98.0); Mean Platelet Volume 9.9 fL (9.4-12.4); NRBC Pct Auto 0.2 /100WBC (0.0-0.2); Platelet Count 252 X10*3/uL (160-400); Red Blood Count 3.96 X10*6/uL (4.60-5.80); Red Cell Distribution Width 14.9 % (11.0-16.0); White Blood Count 8.8 X10*3/uL (4.8-10.8)
[2024-08-01 07:18] VITALS: BP 136/97; PULSE 79; RESP 18; TEMP 36.6; O2SAT 97
[2024-08-01 07:25] LABS: Anion Gap 13 (12-20); Blood Urea Nitrogen 14 mg/dL (9-16); Calcium 8.2 mg/dL (8.4-10.2); Carbon Dioxide 25 mmol/L (22-29); Chloride 103 mmol/L (96-108); Creatinine Clr Calc Pharmacy 115.4; Estimated Glomerular Filt Rate > 60; Glucose Random 116 mg/dL (60-115); Potassium 3.6 mmol/L (3.3-5.1); Sodium 137 mmol/L (135-145)
[2024-08-01 07:28] LABS: Glucose, Whole Blood 119 mg/dL (60-115)
[2024-08-01] MEDS: Naltrexone HCl 50 MG TABLET PO (08:18)
[2024-08-01] MEDS: Digoxin 0.125 MG TABLET PO (08:18)
[2024-08-01] MEDS: buPROPion HCl XL 150 MG TAB.ER.24H PO (08:18)
[2024-08-01] MEDS: allopurinoL 100 MG TABLET 200 MG PO (08:18)
[2024-08-01] MEDS: dilTIAZem HCL CD 180 MG CAP.ER.24H PO (08:18)
[2024-08-01] MEDS: busPIRone HCl 10 MG TABLET PO (08:18)
[2024-08-01] MEDS: Folic Acid 1 MG TABLET PO (08:18)
[2024-08-01] MEDS: DULoxetine HCl 60 MG CAPSULE.DR PO (08:19)
[2024-08-01] MEDS: Ascorbic Acid 500 MG TABLET PO (08:19)
[2024-08-01] MEDS: Metoprolol Tartrate 50 MG TABLET PO (08:19)
[2024-08-01] MEDS: 0.9 % Sodium Chloride Flush 3 ML SYRINGE IVFLUSH (08:19)
[2024-08-01] MEDS: Multivitamin TABLET 1 TAB PO (08:19)
[2024-08-01] MEDS: Thiamine HCL 100 MG TABLET PO (08:19)
[2024-08-01] MEDS: PHENobarbitaL 30 MG TABLET PO (08:19)
[2024-08-01] MEDS: Dabigatran Etexilate Mesylate 150 MG CAPSULE PO (08:20)
--- NOTE | 2024-08-01 09:03 | PM.DS ---
DS: Providers Provider Date of Service: 08/01/24 Date of admission: 07/29/24 19:03 Date of discharge: 08/01/24 Primary care physician: Nikole Mauricio MD Consults: 07/29/24 13:33 ED CARE Team Crisis Consult Stat Comment: Reason for consultation: anxiety/depression, AH with etoh use 07/29/24 19:06 Addiction Medicine Provider Routine Consulting Provider: Addiction Covering Reason for consultation: alcohol use disorder 07/29/24 21:14 Consult to Psychiatry Routine Consulting Provider: [facility] [place] Psych Covering Reason for consultation: Depression 07/30/24 18:36 Consult to Wound Care Routine Reason for consultation: Cellulitis, redness to groin and coccyx, redness to right heel DS: Diagnosis Discharge Diagnosis (1) Alcohol use disorder, severe, dependence: Status: Acute DS: Summary Hospital Course Hospital Course: from initial hpi: 69-year-old male with pertinent history of persistent atrial fibrillation on Pradaxa, peripheral vascular disease status post left BKA, hypertension, mixed hyperlipidemia, alcohol use disorder with history of withdrawals, marginal zone lymphoma status post appendectomy, coronary artery disease, mood disorder, gout, BPH, [id number] type 2 diabetes mellitus, EMIL not compliant with CPAP who presents to the emergency department for evaluation of left lower extremity redness. Patient states he has been wearing his prosthesis and noticed redness around the site of BKA about few days prior to presentation. Patient tried home Augmentin without any improvement in symptoms. States the redness, pain and warmth have been increasing over his left lower extremity around BKA site and posterior to the knee. Patient does have a history of alcohol withdrawal and states his last drink was 10-12 hours prior to presentation. No history of alcohol withdrawal seizures. Does complain of palpitations but no chest pain or shortness of breath. Also states he is having a difficult time as he is in the process of selling his house and getting . No fever, chills, nausea, vomiting, abdominal pain, changes in urinary or bowel habits. In the emergency department, patient was initiated on IV diltiazem drip for AFib with RVR. Initiated on phenobarb protocol for alcohol use disorder. Given empiric IV antibiotics for lower leg cellulitis hospital course: Patient was admitted for persistent atrial fibrillation with rapid ventricular response. Was restarted on beta-lashell, diltiazem, digoxin and rate improved. He was continued on Pradaxa. For alcohol dependence with withdrawal was treated with phenobarbital protocol. For lower extremity cellulitis of the left BKA site he was treated with Zyvox and Zosyn and will be discharged on 5 more days of doxy. For diarrhea C diff and GI panel were negative was started on Imodium with good effect. For diabetes was continued on insulin sliding scale. For EMIL he is noncompliant with CPAP for obesity weight loss recommended. Patient is feeling better will be discharged home. Time Attestation Discharge Coordination Time (in mins): 37 Quality: Safe Use of Opioids Does Pt have an Active Cancer Diagnosis on the Problem List?: No Quality: Stroke Does the patient have a stroke diagnosis?: No Physical Exam Vital Signs: Vital Signs: Last Vital Signs Temp 97.9 F 08/01/24 07:18 Pulse 79 08/01/24 07:18 Resp 18 08/01/24 07:18 BP 136/97 H 08/01/24 07:18 Pulse Ox 97 08/01/24 07:18 O2 Del Method Room Air 08/01/24 07:18 O2 Flow Rate 2 08/01/24 03:27 BMI result Body Mass Index 32.8 General: AO X 3, no acute distress Resp: CTA bilateral, no accessory muscles used CVS: S1,S2,RRR GI: soft, non tender, non distended Neuro: motor grossly intact, alert Psych: appropriate affect, appropriate insight Left BKA site with some inflammatory changes but no obvious cellulitis residual, right lower extremity with some swelling and chronic venous stasis ulcer DS: Data Data Completed and Pending Completed studies during hospitalization [Text1]: Procedures Detoxification Services for Substance Abuse Treatment (07/08/24) Labs on day of discharge: Laboratory Results - last 24 hr 07/31/24 07/31/24 07/31/24 04:34 11:07 16:24 WBC RBC Hgb Hct MCV MCH MCHC RDW Plt Count MPV Absolute Nucleated RBC Nucleated RBC % (auto) Sodium Potassium Chloride Carbon Dioxide Anion Gap BUN Creatinine Estim Creat Clear Calc Estimated GFR POC Glucose 173 H 120 H Random Glucose Calcium Stl C. cayetanensis PCR Not Detected Stool Rotavirus A PCR Not Detected Stl Adenov F 40/41 PCR Not Detected Stool Astrovirus (PCR) Not Detected Stool Campylobacter PCR Not Detected Stool Cryptosporidium PCR Not Detected Stl Sh Tox Pr E STEC PCR Not Detected Stool E coli O157 PCR Not applicable Stl Enterotoxigenic E PCR Not Detected Stool EPEC (PCR) Not Detected Stool EAEC (PCR) Not Detected Stl E. histolytica PCR Not Detected Stool Giardia Lamblia PCR Not Detected Stl P. shigelloides PCR Not Detected Stool Salmonella PCR Not Detected Stool Sapovirus (PCR) Not Detected Stl Shigella/EIEC PCR Not Detected St Y.enterocolitica PCR Not Detected Stool Vibrio (PCR) Not Detected Stl Vibrio cholerae PCR Not Detected Stl Norovirus GI/GII PCR Not Detected 07/31/24 08/01/24 08/01/24 19:32 06:41 07:20 WBC 8.8 RBC 3.96 L Hgb 12.6 L Hct 36.4 L MCV 91.9 MCH 31.8 MCHC 34.6 RDW 14.9 Plt Count 252 MPV 9.9 Absolute Nucleated RBC 0.020 H Nucleated RBC % (auto) 0.2 Sodium 137 Potassium 3.6 Chloride 103 Carbon Dioxide 25 Anion Gap 13 BUN 14 Creatinine 0.84 Estim Creat Clear Calc 115.4 Estimated GFR > 60 POC Glucose 119 H 119 H Random Glucose 116 H Calcium 8.2 L D Stl C. cayetanensis PCR Stool Rotavirus A PCR Stl Adenov F 40/41 PCR Stool Astrovirus (PCR) Stool Campylobacter PCR Stool Cryptosporidium PCR Stl Sh Tox Pr E STEC PCR Stool E coli O157 PCR Stl Enterotoxigenic E PCR Stool EPEC (PCR) Stool EAEC (PCR) Stl E. histolytica PCR Stool Giardia Lamblia PCR Stl P. shigelloides PCR Stool Salmonella PCR Stool Sapovirus (PCR) Stl Shigella/EIEC PCR St Y.enterocolitica PCR Stool Vibrio (PCR) Stl Vibrio cholerae PCR Stl Norovirus GI/GII PCR Preliminary micro results at discharge 07/29/24 19:12 Blood Culture - Preliminary Blood - Venous No growth after 48 hours. 07/29/24 19:12 Blood Culture - Preliminary Blood - Venous No growth after 48 hours. Discharge Plan Discharge Anticipated Discharge Date/Time: 08/01/24 08:59 Patient Disposition: Home, Self-Care Discharge Diagnosis: cellulitis, etoh withdrawal Referrals: Nikole Mauricio MD [Primary Care Provider] - 1 Week Discharge Medications: New loperamide 2 mg Capsule 2 mg PO Q4H PRN (Reason: Diarrhea) Qty: 30 0RF doxycycline hyclate 100 mg tablet 100 mg PO BID Qty: 10 0RF Continued (DME) blood pressure test kit-medium Kit See Rx Instructions .Route Qty: 1 0RF Rx Instructions: As directed to monitor BP at home (DME) bedside commode Kit See Rx Instructions .Route Qty: 1 0RF Rx Instructions: As directed (DME) wheelchair-16 inch wide with removable footrests 16 inch wide See Rx Instructions .Route .MEDSUPPLY Qty: 1 0RF Rx Instructions: As directed dabigatran etexilate [Pradaxa] 150 mg capsule 150 mg PO BID 90 Days Qty: 180 3RF atorvastatin 20 mg tablet 20 mg PO BEDTIME 30 Days Qty: 90 3RF diltiazem HCl 180 mg capsule,ext.rel 24h degradable 180 mg PO DAILY 90 Days Qty: 90 3RF ascorbic acid (vitamin C) [Vitamin C] 500 mg tablet 500 mg PO DAILY Qty: 90 3RF folic acid 1 mg tablet 1 mg PO DAILY Qty: 90 3RF thiamine HCl (vitamin B1) 100 mg tablet 100 mg PO DAILY Qty: 90 3RF (DME) FreeStyle Lite Strips Strip See Rx Instructions .Route Qty: 100 3RF Rx Instructions: Test blood sugar QD (DME) lancets [FreeStyle Lancets] 28 gauge misc See Rx Instructions .Route Qty: 100 3RF Rx Instructions: Test blood sugar QD (DME) blood-glucose meter [FreeStyle Lite Meter] Kit See Rx Instructions .ROUTE .MEDSUPPLY Qty: 1 0RF Rx Instructions: As directed QD buspirone 10 mg Tablet 10 mg PO BID hydrocortisone valerate 0.2 % ointment 1 appl topical BID PRN (Reason: rash) Qty: 15 0RF bupropion HCl 150 mg tablet extended release 24 hr 150 mg PO DAILY metoprolol tartrate 50 mg tablet 50 mg PO BID digoxin 125 mcg (0.125 mg) tablet 125 mcg PO DAILY naproxen 500 mg tablet 500 mg PO BID clotrimazole 1 % Cream 1 appl topical BID Qty: 30 0RF Protocol: Apply to: Apply to: Foot and between toes Rx Instructions: apply to foot and between toes metronidazole 0.75 % Gel 1 appl topical BID Qty: 45 0RF allopurinol 100 mg tablet 200 mg PO DAILY (DME) FreeStyle Erika 14 Day Sensor Kit See Rx Instructions .Route Qty: 1 4RF Rx Instructions: As directed multivitamin Tablet 1 tab PO DAILY duloxetine 60 mg capsule,delayed release(DR/EC) 60 mg PO DAILY naltrexone 50 mg tablet 50 mg PO DAILY Discharge Orders: Discharge Order (Routine); Ordered 08/01/24 Ordered By: Juve Hernandez Diet: Advance to usual diet Activity on Discharge: As tolerated Stand Alone Forms: Patient Portal Discharge page Print Language: [place] Care Plan Goals: recovery Health Concerns: cellultiis, diarrhea, etoh Plan of Treatment: no etoh, 5 days doxy, immodium as needed Assessment: see above Patient Instructions: Cellulitis (ED)
[2024-08-01] MEDS: Linezolid/D5W 600 MG/300 ML PIGGYBACK 300 MG IV (09:29)
[2024-08-01] MEDS: Clotrimazole 1 % Cream 15 GM TUBE 1 APPL TOPICAL (09:31)
[2024-08-01] MEDS: metroNIDAZOLE 0.75 % Gel 45 GM TUBE 1 APPL TOPICAL (09:31)
--- NOTE | 2024-08-01 10:54 | MHC.CM.PN ---
IMM 07/30/24 Patient is discharged to home today with resumption of [facility], private transport.
[2024-08-01 11:15] VITALS: BP 156/85; PULSE 77; RESP 18; TEMP 36.3; O2SAT 100
[2024-08-01 11:23] LABS: Glucose, Whole Blood 199 mg/dL (60-115)
[2024-08-01] MEDS: Insulin Lispro 100 UNIT/ML 3 ML VIAL SUBCUT (11:32)
== END 2024-08-01 12:35 | disposition home health service (06) | DRG 603 ==
LOC: HO.ED 13:44 → HO.EDOVER 19:11 → HO.IMC 07-30 16:14
PROVIDERS: Physician Assistant Medical; Admitting Provider Student in an Organized Health Care Education/Training Program; Emergency Provider Emergency Medicine; PCP Internal Medicine; Visit Provider Internal Medicine
DX: L03.116 Cellulitis of left lower limb (principal); I48.19 Other persistent atrial fibrillation; F10.239 Alcohol dependence with withdrawal, unspecified; E11.51 Type 2 diabetes mellitus with diabetic peripheral angiopathy without gangrene; R19.7 Diarrhea, unspecified; Y90.1 Blood alcohol level of 20-39 mg/100 ml; I25.10 Atherosclerotic heart disease of native coronary artery without angina pectoris; G47.33 Obstructive sleep apnea (adult) (pediatric); Z89.512 Acquired absence of left leg below knee; Z79.01 Long term (current) use of anticoagulants; Z79.899 Other long term (current) drug therapy
CPT/HCPCS: 36415; 80048; 80053; 80076; 80143; 80179; 80307; 81001; 82947; 83605; 84443; 85025; 85027; 87040; 87493; 87507; 93005; 99285; J0690; J2020; J2543; J2560; S9485

== ENCOUNTER → 2024-07-29 15:55 | Outpatient (BNV) | payer MEDICARE, SELFPAY | PROVIDERS: Admitting Provider Student in an Organized Health Care Education/Training Program; Emergency Provider Emergency Medicine; PCP Internal Medicine; Visit Provider Internal Medicine | DX: I48.91 Unspecified atrial fibrillation (principal); I25.2 Old myocardial infarction | CPT/HCPCS: 93010 ==

== ENCOUNTER → 2024-07-29 19:03 | Outpatient (BNV) | payer MEDICARE, SELFPAY | PROVIDERS: Admitting Provider Student in an Organized Health Care Education/Training Program; Emergency Provider Emergency Medicine; PCP Internal Medicine; Visit Provider Nurse Practitioner Psychiatric/Mental Health | DX: F10.20 Alcohol dependence, uncomplicated (principal) | CPT/HCPCS: 99222 ==

== ENCOUNTER → 2024-07-29 19:03 | Outpatient (BNV) | payer MEDICARE, SELFPAY | PROVIDERS: Admitting Provider Student in an Organized Health Care Education/Training Program; Emergency Provider Emergency Medicine; PCP Internal Medicine; Visit Provider Student in an Organized Health Care Education/Training Program | DX: F10.20 Alcohol dependence, uncomplicated (principal) | CPT/HCPCS: 99223; 99232; 99233; 99239 ==